=== PATIENT | female | born 1945 | race Caucasian/White ===

== ENCOUNTER 2017-05-11 15:42 | Outpatient (CLI) | payer MEDICARE | END 2017-05-11 15:43 | disposition home or self-care (01) | LOC: BICMAMMO 15:42 | PROVIDERS: ATTEND Family Medicine | DX: Z12.31 Encounter for screening mammogram for malignant neoplasm of breast (principal); Z85.3 Personal history of malignant neoplasm of breast | CPT/HCPCS: 77063 ==

== ENCOUNTER 2017-09-22 03:44 | Emergency (ER) | payer MEDICARE ==
[2017-09-22 04:19] LABS: #Basophils 0.1 thou/uL (0.0-0.2); #Eosinphils 0.2 thou/uL (0.0-0.7); #Lymphocytes 1.9 thou/uL (1.20-3.40); #Monocytes 0.8 thou/uL (0.11-0.59); #Neutrophils 6.3 thou/uL (1.40-6.50); %Basophils 0.7 % (0.0-1.0); %Eosinophils 2.1 % (0.0-10.0); %Lymphocytes 20.7 % (21.0-51.0); %Monocytes 8.3 % (0.0-10.0); %Neutrophils 68.2 % (42.0-75.0); Hemoglobin 10.3 g/dL (12.0-16.0); Mean Corpuscular Hemoglobin 30.4 pg (27.0-31.0); Mean Platelet Volume 8.6 fL (7.4-10.4); Platelet Count 200 thou/uL (130-400); RBC Distribution Width 13.6 % (11.5-14.5); Red Blood Cell (RBC) Count 3.38 mill/uL (4.20-5.40); White Blood Cell (WBC) Count 9.3 thou/uL (4.8-10.8)
[2017-09-22 04:39] LABS: ALT (SGPT) 13 U/L (8-55); AST (SGOT) 15 U/L (5-34); Albumin 3.2 g/dL (3.4-4.8); Alkaline Phosphatase 108 U/L (40-150); Anion Gap 11 mmol/L (10-20); BUN (Urea Nitrogen) 40 mg/dL (9.8-20.1); Bilirubin, Total 0.3 mg/dL (0.2-1.2); Calc. Creatinine Clearance 0 mL/min (70-130); Calcium 8.7 mg/dL (7.8-10.44); Carbon Dioxide 25 mmol/L (23-31); Chloride 111 mmol/L (98-107); Estimated GFR-MDRD 28; Globulin 3.5 g/dL (2.4-3.5); Glucose 149 mg/dL (83-110); Potassium 4.1 mmol/L (3.5-5.1); Protein, Total 6.7 g/dL (6.0-8.3); Sodium 143 mmol/L (136-145)
[2017-09-22 04:42] LABS: Troponin I Less than 0.010 ng/mL (< 0.028)
--- NOTE | 2017-11-25 12:32 | EKG ---
Test Reason : Blood Pressure : / mmHG Vent. Rate : 068 BPM Atrial Rate : 068 BPM P-R Int : 184 ms QRS Dur : 174 ms QT Int : 474 ms P-R-T Axes : 019 -34 -01 degrees QTc Int : 504 ms Normal sinus rhythm Left axis deviation Right bundle branch block Voltage criteria for left ventricular hypertrophy Abnormal ECG Confirmed by OLGA ARROYO ([id number]), makeup editor DONOVAN GALDAMEZ ([id number]) on 11/25/2017 12:31:48 PM Referred By: Confirmed By:OLGA ARROYO
== END 2017-09-22 06:00 | disposition home or self-care (01) ==
LOC: ERS 03:44
DX: E11.649 Type 2 diabetes mellitus with hypoglycemia without coma (principal); I11.0 Hypertensive heart disease with heart failure; I50.9 Heart failure, unspecified; I25.2 Old myocardial infarction; E66.9 Obesity, unspecified; J44.9 Chronic obstructive pulmonary disease, unspecified; Z85.3 Personal history of malignant neoplasm of breast; Z79.4 Long term (current) use of insulin; Z87.891 Personal history of nicotine dependence; Z79.899 Other long term (current) drug therapy; Z79.82 Long term (current) use of aspirin
CPT/HCPCS: 36415; 36416; 80053; 82553; 84484; 85025; 93005

== ENCOUNTER 2018-04-14 13:36 | Outpatient (CLI) | payer MEDICARE ==
--- NOTE | 2018-04-14 14:38 | RAD ---
RIGHT KNEE 4 VIEWS: Date: 04/14/18 HISTORY: Right knee pain. FINDINGS: Mild-moderate degenerative changes are present. These are most prominent in the medial tibiofemoral c ompartment. No fracture, dislocation, or bony destruction is identified. IMPRESSION: Right knee osteoarthritis. POS: [facility]
--- NOTE | 2018-04-14 14:39 | RAD ---
LEFT KNEE FOUR VIEWS: HISTORY: Left knee pain. FINDINGS: There are degenerative changes most prominent in the medial tibiofemoral compartment. No fracture, d islocation, or bony destruction is seen. IMPRESSION: Left knee osteoarthritis. POS: [facility]
== END 2018-04-14 13:37 | disposition home or self-care (01) ==
LOC: BICRAD 13:36
PROVIDERS: ATTEND Anesthesiology Pain Medicine
DX: M25.562 Pain in left knee (principal); M25.561 Pain in right knee; M17.0 Bilateral primary osteoarthritis of knee

== ENCOUNTER 2018-08-26 09:04 | Outpatient (CLI) | payer MEDICARE ==
--- NOTE | 2018-08-26 11:40 | MRI ---
MRI LUMBAR SPINE WITHOUT CONTRAST: 08/26/2018 HISTORY: Bilateral leg pain and back pain for a long time. History of back surgeries. COMPARISON: None. TECHNIQUE: Multiplanar, multisequence MR imaging of the lumbar spine is provided without contrast media. The johnie tient was not administered contrast media secondary to a low glomerular filtration rate of 20. FINDINGS: The sagittal STIR imaging demonstrates no focal area of osseous marrow edema. There is significant d egenerative levoscoliosis of the upper lumbar spine. Artifact associated with post surgical hardware is noted on the right, which appears to include pedicle screws at S1, L5, L3, and L2, not well shelli cterized on this examination. There is diminished T1 signal intensity within the subcutaneous fat, posteriorly, from the T12 level through the L5-S1 level, evidence of extensive prior post surgical change. Assuming five lumbar type vertebral bodies, the conus medullaris terminates at the T12 level. T12-L1: There is disk space narrowing and disk desiccation with minimal disk bulge and bilateral fac et hypertrophy. No significant central canal or neural foraminal stenosis is evident. L1-L2: Disk space narrowing, disk desiccation, anterior osteophyte formation, and minimal disk bulge present. No central canal stenosis. There is bilateral facet hypertrophy, right greater than left. No significant central canal stenosis. Mild neural foraminal stenosis is present on the right. L2-L3: Disk space narrowing, disk desiccation, and mild disk bulge. There is evidence of bilateral laminectomies. There is bilateral facet hypertrophy, right greater than left. There is mild bilater al neural foraminal stenosis. No central canal stenosis. L3-L4: There is mild bilateral facet hypertrophy. There is disk space narrowing and disk desiccatio n. No significant central canal or neural foraminal stenosis. L4-L5: There is bilateral facet hypertrophy and apparent osseous fusion involving the bilateral face t joints. There is disk space narrowing and disk desiccation with no significant central canal or ne ural foraminal stenosis. L5-S1: Disk space narrowing. Bilateral facet hypertrophy and fusion of bilateral facet joints. There is no significant central canal or neural foraminal stenosis. Evaluation of the retroperitoneal structures demonstrates no acute findings. The right kidney is not visualized. Question surgical absence. IMPRESSION: Extensive postoperative and degenerative change noted within the lumbar spine, as above. Contrast wa s not administered secondary to a glomerular filtration rate of 20. POS: [facility]
== END 2018-08-26 09:05 | disposition home or self-care (01) ==
LOC: MRI 09:04
PROVIDERS: ATTEND Anesthesiology Pain Medicine
DX: M47.26 Other spondylosis with radiculopathy, lumbar region (principal); M96.1 Postlaminectomy syndrome, not elsewhere classified; M43.26 Fusion of spine, lumbar region; M62.830 Muscle spasm of back; M17.0 Bilateral primary osteoarthritis of knee; G89.4 Chronic pain syndrome; Z86.39 Personal history of other endocrine, nutritional and metabolic disease; Z79.891 Long term (current) use of opiate analgesic; Z98.890 Other specified postprocedural states
CPT/HCPCS: 72148

== ENCOUNTER 2018-08-27 10:42 | Outpatient (CLI) | payer MEDICARE ==
--- NOTE | 2018-09-15 15:52 | MMO ---
Bilateral MAMMO Bilat Screen [facility]. CLINICAL HISTORY: Patient is 73 years old and is seen for screening. The patient has no family history of breast cancer. The patient has a history of right needle biopsy in December, - benign, left Mastectomy in 2009 - malignant, right Excisional Biopsy in 2008 - benign, left Lumpectomy in 2001 - malignant and left Excisional Biopsy. VIEWS: The views performed were: bilateral craniocaudal with tomosynthesis and bilateral mediolateral oblique with tomosynthesis. FILMS COMPARED: The present examination has been compared to prior imaging studies performed at [facility] on 07/19/2009, 01/19/2013, 06/22/2014, 02/12/2016 and 05/11/2017, at [facility] on 05/18/2007 and 09/22/2008, and at [facility] on 02/27/2011 and 10/10/2011. MAMMOGRAM FINDINGS: There are scattered fibroglandular densities. Finding 1: There are benign appearing densities seen in the right breast. Finding 2: There are benign appearing calcifications seen in the right breast. There are no suspicious masses, suspicious calcifications, or new areas of architectural distortion. IMPRESSION: THERE IS NO MAMMOGRAPHIC EVIDENCE OF MALIGNANCY. A ROUTINE FOLLOW-UP MAMMOGRAM IN 1 YEAR IS RECOMMENDED. THE RESULTS OF THIS EXAM WERE SENT TO THE PATIENT. ACR BI-RADS Category 2 - Benign finding MAMMOGRAPHY NOTE: 1. A negative mammogram report should not delay a biopsy if a dominant of clinically suspicious mass is present. 2. Approximately 10% to 15% of breast cancers are not detected by mammography. 3. Adenosis and dense breasts may obscure an underlying neoplasm.
== END 2018-08-27 10:43 | disposition home or self-care (01) ==
LOC: BICMAMMO 10:42
PROVIDERS: ATTEND Family Medicine
DX: Z12.31 Encounter for screening mammogram for malignant neoplasm of breast (principal)
CPT/HCPCS: 77063; 77067

== ENCOUNTER 2018-12-14 14:48 | Inpatient (IN) | payer MEDICARE ==
[2018-12-14 15:30] LABS: #Basophils 0.1 thou/uL (0.0-0.2); #Eosinphils 0.2 thou/uL (0.0-0.7); #Lymphocytes 2.3 thou/uL (1.20-3.40); #Monocytes 0.7 thou/uL (0.11-0.59); #Neutrophils 4.9 thou/uL (1.40-6.50); %Eosinophils 2.2 % (0.0-10.0); %Neutrophils 60.8 % (42.0-75.0); Hemoglobin 10.5 g/dL (12.0-16.0); Mean Corpuscular HGB CONC 31.9 g/dL (32.0-36.0); Mean Corpuscular Hemoglobin 30.3 pg (27.0-31.0); Mean Corpuscular Volume 94.9 fL (78.0-98.0); Mean Platelet Volume 9.7 fL (7.4-10.4); Platelet Count 212 thou/uL (130-400); Red Blood Cell (RBC) Count 3.47 mill/uL (4.20-5.40); White Blood Cell (WBC) Count 8.1 thou/uL (4.8-10.8)
--- NOTE | 2018-12-14 15:49 | RAD ---
FRONTAL VIEW CHEST: Date: 12/14/18 COMPARISON: 01/07/17. INDICATION: Chest pain. Hypertension. FINDINGS: Enlargement of the cardiac silhouette and pulmonary vasculature with bilateral interstitial prominenc e. There is evidence of prior sternotomy. The chest is similar appearing. IMPRESSION: Decompensated CHF. POS: [facility]
[2018-12-14 16:13] LABS: ALT (SGPT) 11 U/L (8-55); AST (SGOT) 13 U/L (5-34); Albumin 2.7 g/dL (3.4-4.8); Alkaline Phosphatase 138 U/L (40-150); Anion Gap 14 mmol/L (10-20); BUN (Urea Nitrogen) 33 mg/dL (9.8-20.1); Bilirubin, Total 0.3 mg/dL (0.2-1.2); Calc. Creatinine Clearance 0 mL/min (70-130); Calcium 8.4 mg/dL (7.8-10.44); Carbon Dioxide 23 mmol/L (23-31); Chloride 111 mmol/L (98-107); Estimated GFR-MDRD 15; Globulin 3.8 g/dL (2.4-3.5); Glucose 117 mg/dL (83-110); Potassium 4.7 mmol/L (3.5-5.1); Protein, Total 6.5 g/dL (6.0-8.3); Sodium 143 mmol/L (136-145)
[2018-12-14] MEDS ORDERED: Nitroglycerin 2% Ointment 1 INCH/1 GM Packet ONE (17:00)
[2018-12-14] MEDS ORDERED: Furosemide 40 MG/4 ML VIAL ONE (17:00)
[2018-12-14] MEDS ORDERED: Senokot S 8.6-50 MG TAB PO PRN (18:20)
[2018-12-14] MEDS ORDERED: Acetaminophen 325 MG TAB PO PRN (18:20)
[2018-12-14] MEDS ORDERED: Dextrose 5% in Water 1,000 ML IV PRN (18:22)
[2018-12-14] MEDS ORDERED: Dextrose 50% Abboject 50 ML SYRINGE SLOW IVP PRN (18:22)
[2018-12-14 18:42] LABS: Troponin I 0.017 ng/mL (< 0.028)
--- NOTE | 2018-12-14 20:00 | HP ---
CHIEF COMPLAINT: Shortness of breath and chest pain. HISTORY OF PRESENT ILLNESS: The patient is a 73-year-old female with a history of hypertension, CKD stage 4, has a history of CAD status post x3 stents and a history of, I believe, emphysema and breast cancer, who presents to the hospital with complaints of shortness of breath and chest pain. The patient stated that for the past couple of days, she has noticed some chest discomfort, nonradiating. She also was nauseated, but no emesis. The patient states that last night her blood pressure was very high in the 200 systolic. She then took her night medications and we checked and it was 193. The patient denies missing any of her medication doses. The patient also has noticed for the past few days worsening swelling in her lower extremity and also in her abdominal area. The patient states that she has been very compliant with diet and not has not been eating a very high salty foods. The patient stated that she called her cable systems installer today for the chest pain and elevated blood pressure, who recommended her to come into the ER for further evaluation. The patient was put on steroids by her primary care for generalized wheezing about 10 days ago. She states that she does have a cough, but it is a very dry cough. She denies any fevers or chills. The patient also normally walks on her home and has noticed some shortness of breath on minimal exertion. The patient states that she uses oxygen as needed. PAST MEDICAL HISTORY: She has a history of; 1. Hypertension. 2. Diabetes. 3. She has a history of breast cancer. 4. CKD stage 4. 5. CAD. PAST SURGICAL HISTORY: She has had left mastectomy. She also has had a right nephrectomy. She stated that she had a spot on her kidney, however, it was not cancerous. She has had 4 back surgeries. She has also had stents x3. SOCIAL HISTORY: She was a smoker, quit about 20 years ago, was a pretty heavy smoker. She denies any alcohol use or drug use. She is a full code. I did ask her this and her son would be her medical power of employment attorney if something did happen to her. ALLERGIES: SHE IS ALLERGIC TO MORPHINE AND CODEINE. FAMILY HISTORY: No history of heart disease, cancers, or strokes. REVIEW OF SYSTEMS: All negative except the ones mentioned above in HPI. PHYSICAL EXAMINATION: VITAL SIGNS: As of the following; temperature of 98.8, respirations 15%, 98% on 2 L, blood pressure 161/58, pulse of 65. GENERAL: She is awake, alert, and oriented x3. Does not appear in distress. HEENT: Normocephalic and atraumatic. No lymphadenopathy noted. Pupils are equal and reactive to light. She does sound a little congested. CV: S1 and S2 present. No murmurs, rubs, or gallops. LUNGS: Mild crackles to bilateral lower lung bases, otherwise clear. No wheezing heard. ABDOMEN: Soft. Bowel sounds are present x2. Some abdominal edema on palpation. EXTREMITIES: She does have +1 to +2 lower extremity pitting edema. NEUROVASCULAR: No focal deficits noted. SKIN: No cuts, lesions, or bruises noted. LABORATORY RESULTS: As of the following; WBCs of 8.1, hemoglobin of 10.5, hematocrit of 32.9, and platelets of 212. She has no elevated neutrophils. Chemistry; sodium 143, potassium 4.7, BUN of 33, creatinine of 3. Her GFR is 15. Her proBNP was 358. Troponin x2 were negative. She did have a chest x-ray upon my interpretation appears to have some vascular congestion. She did have an echocardiogram which was done in 2017 indicated an EF of 60% to 65%, and at that time she did have some moderate to severe tricuspid regurgitation. ASSESSMENT AND PLAN: The patient is a very pleasant 73-year-old female, who presents to the hospital with complaints of chest pain and shortness of breath. 1. Acute on chronic diastolic heart failure based on her last echocardiogram. I will recheck an echocardiogram. I will also start her on gentle diuresis. I will consult her status controller, who is Dr. Nevarez. I will also consult Cardiology. We will trend her troponins x3. She had no significant changes on her EKG; however, I will go ahead and still consult Cardiology. We will continue her home medications. Her blood pressure of being in the 200s could possibly cause her to have flash pulmonary edema. Currently, I do not think of any infectious etiology. She has no elevated white count and no neutrophils and a chest x-ray does not seem to show any pneumonia. She has no wheezing, however, I will start her on some DuoNebs. 2. History of CKD stage 4. We will continue to monitor. 3. History of hypertension. We will continue her home medications. 4. History of CAD. We will continue her aspirin. 5. DVT prophylaxis. We will put the patient on some SCDs or heparin. Job ID: [id number]
[2018-12-14] MEDS: Aspirin Chewable 81 MG TAB PO SCH (20:57)
[2018-12-14] MEDS: Famotidine 20 MG TAB PO SCH (20:58)
[2018-12-14] MEDS: Montelukast Sodium 10 mg Tablet PO SCH (20:58)
[2018-12-14] MEDS: Heparin 5,000 UNITS/ML VIAL SC SCH (20:58)
[2018-12-14] MEDS ORDERED: Carvedilol 25 MG TAB PO SCH (21:00)
[2018-12-14] MEDS ORDERED: NIFEdipine XL 60 MG TAB PO SCH (21:00)
[2018-12-14 21:32] LABS: Troponin I 0.012 ng/mL (< 0.028)
[2018-12-14] MEDS: Insulin Glargine 25 UNITS in Pre-Filled Syringe SC SCH (23:34)
[2018-12-15] MEDS: hydrALAZINE 20 MG/ML VIAL SLOW IVP PRN (03:28)
[2018-12-15] MEDS: Ondansetron PF 4 MG/2 ML Vial IVP PRN (04:47)
[2018-12-15 05:27] LABS: #Basophils 0.1 thou/uL (0.0-0.2); #Eosinphils 0.2 thou/uL (0.0-0.7); #Lymphocytes 2.3 thou/uL (1.20-3.40); #Monocytes 0.6 thou/uL (0.11-0.59); #Neutrophils 3.8 thou/uL (1.40-6.50); %Basophils 1.4 % (0.0-1.0); %Eosinophils 2.3 % (0.0-10.0); %Lymphocytes 33.3 % (21.0-51.0); %Monocytes 8.7 % (0.0-10.0); %Neutrophils 54.4 % (42.0-75.0); Hemoglobin 9.7 g/dL (12.0-16.0); Mean Corpuscular HGB CONC 31.5 g/dL (32.0-36.0); Mean Corpuscular Hemoglobin 30.4 pg (27.0-31.0); Mean Corpuscular Volume 96.3 fL (78.0-98.0); Mean Platelet Volume 9.6 fL (7.4-10.4); Platelet Count 192 thou/uL (130-400); RBC Distribution Width 12.8 % (11.5-14.5)
[2018-12-15 05:47] LABS: Anion Gap 10 mmol/L (10-20); BUN (Urea Nitrogen) 35 mg/dL (9.8-20.1); Calc. Creatinine Clearance 30 mL/min (70-130); Calcium 8.4 mg/dL (7.8-10.44); Carbon Dioxide 26 mmol/L (23-31); Chloride 109 mmol/L (98-107); Estimated GFR-MDRD 15; Glucose 179 mg/dL (83-110); Potassium 4.1 mmol/L (3.5-5.1); Sodium 141 mmol/L (136-145)
[2018-12-15] MEDS: Carvedilol 25 MG TAB PO SCH ×2 (08:27→21:27)
[2018-12-15] MEDS: Ezetimibe 10 MG TAB PO SCH (08:28)
[2018-12-15] MEDS: Heparin 5,000 UNITS/ML VIAL SC SCH ×3 (08:28→21:29)
[2018-12-15] MEDS ORDERED: Furosemide 40 MG/4 ML VIAL SLOW IVP SCH ×3 (09:00→14:00)
--- NOTE | 2018-12-15 09:57 | PDOC.PN ---
- Subjective Encounter Start Date: 12/15/18 Encounter Start Time: 10:15 Subjective: pt up in chair no complains - Objective Resuscitation Status - Order Detail: 12/14/18 18:20 Resuscitation Status Routine Resuscitation Status: FULL: Full Resuscitation Vital Signs & Weight: Vital Signs (12 hours) Temp Pulse Resp BP Pulse Ox 12/15/18 08:23 97.9 F 71 18 128/68 95 12/15/18 04:35 142/62 H 12/15/18 04:00 98.2 F 62 17 194/84 H 95 12/15/18 03:28 65 12/14/18 22:35 65 135/68 Weight Weight 252 lb I&O: 12/14/18 12/15/18 12/16/18 06:59 06:59 06:59 Intake Total 365 Output Total 700 Balance -335 Result Diagrams: 12/15/18 04:39 12/15/18 04:39 Additional Labs: Accuchecks 12/15/18 05:45 POC Glucose 177 H Phys Exam - Physical Examination Neck: no nodes, no JVD, supple, full ROM Respiratory: no wheezing, no rales, no rhonchi, wheezing present, clear to auscultation bilateral Cardiovascular: RRR, no significant murmur, no rub, gallop, irregular Gastrointestinal: soft, non-tender, no distention, positive bowel sounds Dx/Plan (1) Diastolic CHF, acute on chronic Code(s): I50.33 - ACUTE ON CHRONIC DIASTOLIC (CONGESTIVE) HEART FAILURE Status : Acute Comment: not on ACEI/ARB due to renal insufficiency (2) DEVAUGHN (acute kidney injury) Code(s): N17.9 - ACUTE KIDNEY FAILURE, UNSPECIFIED Status: Acute Comment: Improving (3) DM type 2 (diabetes mellitus, type 2) Status: Chronic (4) Hypertension Code(s): I10 - ESSENTIAL (PRIMARY) HYPERTENSION Status: Chronic - Plan will conitnue lasix for now. echo pending -: will continue his insulin * . Review of Systems - Review of Systems Respiratory: negative: Cough, Dry, Shortness of Breath, Hemoptysis, SOB with Excertion, Pleuritic Pain, Sputum, Wheezing Cardiovascular: negative: chest pain, palpitations, orthopnea, paroxysmal nocturnal dyspnea, edema, light headedness, other Gastrointestinal: negative: Nausea, Vomiting, Abdominal Pain, Diarrhea, Constipation, Melena, Hematochezia, Other - Medications/Allergies Allergies/Adverse Reactions: Allergies Allergy/AdvReac Type Severity Reaction Status Date / Time codeine AdvReac Intermediate Nausea Verified 11/21/16 07:19 morphine AdvReac Intermediate Nausea Verified 11/21/16 07:19 Medications: Current Medications Acetaminophen (Tylenol) 650 mg PO Q4H PRN PRN Reason: Headache/Fever/Mild Pain (1-3) Aspirin (Aspirin Chewable) 81 mg PO [facility] Last Admin: 12/14/18 20:57 Dose: 81 mg Carvedilol (Coreg) 25 mg PO BID [facility] Last Admin: 12/15/18 08:27 Dose: 25 mg Clonidine (Catapres) 0.1 mg PO BID [facility] Dextrose/Water (Dextrose 50%) 25 gm SLOW IVP PRN PRN PRN Reason: Hypoglycemia Ezetimibe (Zetia) 10 mg PO DAILY [facility] Last Admin: 12/15/18 08:28 Dose: 10 mg Famotidine (Pepcid) 20 mg PO QPM [facility] Last Admin: 12/14/18 20:58 Dose: 20 mg Furosemide (Lasix) 80 mg SLOW IVP 0600,1400 [facility] Glucagon (Glucagon) 1 mg IM PRN PRN PRN Reason: Hypoglycemia Heparin Sodium (Porcine) (Heparin) 5,000 units SC TID [facility] Last Admin: 12/15/18 08:28 Dose: 5,000 units Hydralazine HCl (Apresoline) 5 mg SLOW IVP Q6H PRN PRN Reason: SBP >= 180 Last Admin: 12/15/18 03:28 Dose: 5 mg Dextrose/Water (D5w) 1,000 mls @ 0 mls/hr IV .Q0M PRN PRN Reason: Hypoglycemia Insulin Glargine 25 units/ (Miscellaneous Medication) 0.25 mls @ 0 mls/hr SC [facility] Last Admin: 12/14/18 23:34 Dose: Not Given Insulin Human Lispro (Humalog) 0 units SC .MILD SLIDING SCALE PRN PRN Reason: Mild Correctional Scale Isosorbide Mononitrate (Imdur) 60 mg PO [facility] Last Admin: 12/14/18 20:57 Dose: 60 mg Montelukast Sodium (Singulair) 10 mg PO [facility] Last Admin: 12/14/18 20:58 Dose: 10 mg Nifedipine (Procardia Xl) 60 mg PO DAILY [facility] Ondansetron HCl (Zofran) 4 mg IVP Q6H PRN PRN Reason: Nausea/Vomiting Last Admin: 12/15/18 04:47 Dose: 4 mg Senna/Docusate Sodium (Senokot S) 2 tab PO BID PRN PRN Reason: Constipation Sodium Chloride (Flush - Normal Saline) 10 ml IVF Q12HR [facility] Last Admin: 12/15/18 08:28 Dose: 10 ml Sodium Chloride (Flush - Normal Saline) 10 ml IVF PRN PRN PRN Reason: Saline Flush
[2018-12-15] MEDS: cloNIDine 0.1 MG TAB PO SCH ×2 (10:40→21:27)
[2018-12-15] MEDS: NIFEdipine XL 60 MG TAB PO SCH (10:40)
--- NOTE | 2018-12-15 10:46 | CON ---
DATE OF CONSULTATION: HISTORY OF PRESENT ILLNESS: Ms. Lehman is a 73-year-old white female with known history of emphysema, chronic renal failure from diabetic nephropathy, admitted for congestive heart failure. Of interest, this patient was seen at the clinic back on December 02, 2018. She had leg edema at that time. We felt that the leg edema was being precipitated by her nifedipine and Lyrica. She was maintained on spironolactone. However, in the last few days, she became more short of breath. Chest x-ray showed CHF. We are now being consulted for her acute kidney injury on top of her chronic renal failure. REVIEW OF SYSTEMS: Occasional leg edema. Positive for shortness of breath. No chest pain. No syncopal episode. No nausea. No vomiting. No diarrhea. No gross hematuria. No dysuria. No hematochezia. No melena. No hematemesis. No headache. No diplopia. No sore throat. No earaches. Appetite and energy level are fair. No abdominal pain. CURRENT HOSPITAL MEDICATIONS: 1. Tylenol 650 mg q.4 p.r.n. 2. Aspirin 81 mg daily. 3. Carvedilol 25 mg p.o. b.i.d. 4. Zetia 10 mg at bedtime. 5. Famotidine 20 mg q.p.m. 6. Heparin 5000 units subcu t.i.d. 7. Furosemide 40 mg IV daily. 8. Hydralazine 5 mg IV q.6 p.r.n. 9. Imdur 60 mg p.o. at bedtime. 10. Insulin glargine 25 units subcu daily. 11. Nifedipine 60 mg p.o. at bedtime. PAST MEDICAL HISTORY: Includes the following; 1. Chronic renal failure from diabetic nephropathy. 2. Type 2 diabetes mellitus. 3. Hypertension. 4. History of CHF. 5. Left breast cancer in remission. 6. History of morbid obesity. 7. Benign right adrenal tumor. 8. Hyperlipidemia. 9. DJD. 10. Uterine cancer in remission. 11. Cervical cancer in remission. 12. Chronic sinusitis. 13. Coronary artery disease. 14. History of emphysema. PAST SURGICAL HISTORY: Includes status post right nephrectomy, status post back surgery, status post cardiac cath, status post CABG, status post left maxillary lymph node biopsy, status post left mastectomy, status post hysterectomy, status post colonoscopy, and status post repair of ureters secondary to an iatrogenic laceration. SOCIAL HISTORY: The patient lives in [place] with her son. Smoked for 40 years, 1-1/2 pack a day. Education, 11th grade. Currently not smoking. 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 Status post blood transfusion. No IV drug abuse. ALLERGIES: MORPHINE, CODEINE. TRAUMA: None. IMMUNIZATIONS: Up-to-date. HOSPITALIZATIONS: Please see past medical history. FAMILY HISTORY: No family history of ESRD. PHYSICAL EXAMINATION: VITAL SIGNS: Blood pressure is noted at 128/68, heart rate 71, respiratory rate 18, temperature 97.9, and pulse ox 95%. GENERAL: Awake, alert, sitting comfortable, not in overt distress. SKIN: Adequate turgor. HEENT: She has slightly pale conjunctivae. Anicteric sclerae. NECK: No neck mass. No carotid bruits. No JVD. CHEST: No deformities. LUNGS: Decreased breath sounds. HEART: Normal sinus rhythm. No murmur. No gallops. No rubs. ABDOMEN: Globular, soft, and nontender. No masses. EXTREMITIES: Positive for edema. NEUROLOGICAL: Awake and oriented to 3 spheres. Moving all extremities. No tremors. No asterixis. No ataxia. LABORATORY DATA: Laboratories of December 15, 2018; sodium 141, potassium 4.1, chloride 109, carbon dioxide 26, BUN 35, creatinine 3.02, glucose 179, and calcium 8.4. Troponin I 0.012. On December 14, 2018; BUN 33, creatinine 3.0. On November 24, 2018; BUN 28, creatinine 2.8. On August 19, 2018; BUN 30, creatinine 2.34. IMAGING DATA: Chest x-ray shows CHF. ASSESSMENT AND PLAN: 1. Congestive heart failure - the patient is clinically symptomatic. My bias is to further increase her Lasix to 40 mg IV q.12 from once a day. 2. Chronic renal failure secondary to diabetic nephropathy. Creatinine is higher than her baseline. This may be related to the ongoing congestive heart failure as well as current diuretic regimen. My bias is to optimize the control of her congestive heart failure. For that reason, Lasix has been increased. We will monitor kidney function carefully. We will recheck her basic metabolic profile tomorrow. There is no indication for any dialytic intervention at the present time. 3. Hypertension. Due to the leg edema in the past, I have discontinued nifedipine. I have restarted her on clonidine 0.1 mg tablet b.i.d. Thank you for the consult. We will continue to follow. Job ID: [id number]
--- NOTE | 2018-12-15 11:06 | CON ---
DATE OF CONSULTATION: HISTORY OF PRESENT ILLNESS: The patient is a 73-year-old woman, who presents with increasing dyspnea and chest discomfort. The patient has a long history of coronary artery disease. She suffered from non-Q-wave myocardial infarction in 2006. She subsequently underwent cardiac catheterization, found to have severe three-vessel coronary artery disease. She had coronary artery bypass graft surgery x3. She had a CELESTE placed to the LAD, saphenous vein graft to the first diagonal and to an obtuse marginal branch. The patient following the procedure had brief episode of postoperative atrial fibrillation. The patient has suffered from congestive heart failure. She has been admitted previously with dyspnea. She also has chronic renal insufficiency. The patient was in her usual state of health when her diuretic was discontinued due to worsening renal insufficiency. She states she became progressively short of breath. Her blood pressure elevated and she presented to the emergency room with dyspnea and chest discomfort. PAST MEDICAL HISTORY: 1. Coronary artery disease. 2. Diabetes mellitus. 3. Hypertension. 4. Hyperlipidemia. 5. Morbid obesity. 6. History of renal cell carcinoma. 7. Chronic obstructive pulmonary disease. PAST SURGICAL HISTORY: Coronary artery bypass graft surgery , nephrectomy and surgery for breast carcinoma. SOCIAL HISTORY: Former smoker. FAMILY HISTORY: Strong family history of coronary artery disease. MEDICATIONS: See nursing list. REVIEW OF SYSTEMS: Ten-point system otherwise unremarkable. No history of easy bruising or bleeding. PHYSICAL EXAMINATION: GENERAL: This is an obese woman, in mild distress. VITAL SIGNS: Blood pressure 128/68. NECK: Showed no jugular venous distention. LUNGS: Lungs have crackles throughout both lung lee. HEART: Regular rate and rhythm. Normal S1 and S2. 1/6 systolic murmur. ABDOMEN: Distended. EXTREMITIES: Showed mild bilateral edema. VASCULAR: Radial pulses 2+. LABORATORY DATA: White blood cell count 7.0, hemoglobin 9.7, hematocrit 30.8, and platelets are 192. Sodium was 141, potassium 4.1, chloride 109, bicarbonate 26 , BUN 35, and creatinine was 3.0. Troponin 0.012. BNP was 358. Her EKG revealed her to have normal sinus rhythm with frequent right bundle-branch block, frequent premature atrial contractions. IMPRESSION: 1. Congestive heart failure. 2. Coronary artery disease. 3. History of coronary artery bypass surgery. 4. Hypertension. 5. Diabetes mellitus. 6. Morbid obesity. 7. Chronic renal insufficiency. PLAN: This patient presents with worsening edema. Her chest x-ray shows evidence of pulmonary congestion. The patient is being treated with IV Lasix. From a cardiac standpoint, we will increase the dose of her nifedipine to try to lower her blood pressure. We will follow this patient with you throughout her hospitalization. Job ID: [id number] MTDD
[2018-12-15] MEDS: Furosemide 100 MG/10 ML VIAL SLOW IVP SCH (14:59)
[2018-12-15] MEDS: HumaLOG 300 UNITS/3 ML VIAL SC PRN (18:25)
[2018-12-15] MEDS: Famotidine 20 MG TAB PO SCH (21:26)
[2018-12-15] MEDS: Aspirin Chewable 81 MG TAB PO SCH (21:26)
[2018-12-15] MEDS: Montelukast Sodium 10 mg Tablet PO SCH (21:28)
[2018-12-15] MEDS: Insulin Glargine 25 UNITS in Pre-Filled Syringe SC SCH (21:35)
[2018-12-16] MEDS: Furosemide 100 MG/10 ML VIAL SLOW IVP SCH (05:25)
[2018-12-16 05:37] LABS: #Eosinphils 0.3 thou/uL (0.0-0.7); #Monocytes 0.6 thou/uL (0.11-0.59); #Neutrophils 2.8 thou/uL (1.40-6.50); %Basophils 0.8 % (0.0-1.0); %Eosinophils 5.1 % (0.0-10.0); %Lymphocytes 34.4 % (21.0-51.0); %Monocytes 9.7 % (0.0-10.0); %Neutrophils 50.1 % (42.0-75.0); Hemoglobin 9.1 g/dL (12.0-16.0); Mean Corpuscular HGB CONC 31.3 g/dL (32.0-36.0); Mean Corpuscular Hemoglobin 30.5 pg (27.0-31.0); Mean Corpuscular Volume 97.4 fL (78.0-98.0); Mean Platelet Volume 9.9 fL (7.4-10.4); Platelet Count 187 thou/uL (130-400); RBC Distribution Width 12.7 % (11.5-14.5); Red Blood Cell (RBC) Count 2.98 mill/uL (4.20-5.40); White Blood Cell (WBC) Count 5.7 thou/uL (4.8-10.8)
[2018-12-16 05:59] LABS: Anion Gap 12 mmol/L (10-20); BUN (Urea Nitrogen) 41 mg/dL (9.8-20.1); Calc. Creatinine Clearance 24 mL/min (70-130); Carbon Dioxide 23 mmol/L (23-31); Chloride 108 mmol/L (98-107); Estimated GFR-MDRD 12; Glucose 163 mg/dL (83-110); Potassium 4.8 mmol/L (3.5-5.1); Sodium 138 mmol/L (136-145)
--- NOTE | 2018-12-16 09:03 | PRG ---
DATE OF SERVICE: 12/16/2018 SUBJECTIVE: Ms. Lehman is a 73-year-old white female, seen by Renal Service for acute kidney injury on top of her chronic renal failure. She was admitted for CHF. She has been receiving diuretics. Yesterday, Lasix was increased to 80 mg IV q.12; however, creatinine has been noted to have worsened. In addition, she has now dropped her BP, and for that reason, her nifedipine will currently be placed on hold. In addition, clonidine has also been placed on hold temporarily. Her breathing has much improved. OBJECTIVE: VITAL SIGNS: Blood pressure 107/53, heart rate 59, respiratory rate 18, temperature 98.8, and pulse ox 92%. GENERAL: The patient is awake, sitting comfortable, not in distress. SKIN: Adequate turgor. HEENT: Slightly pale conjunctivae. Anicteric sclerae. NECK: No neck mass. No carotid bruits. No JVD. CHEST: No deformities. LUNGS: Decreased breath sounds. HEART: Normal sinus rhythm. No murmur. No gallops. No rubs. ABDOMEN: Globular, soft, nontender. EXTREMITIES: Positive for edema. MEDICATIONS: Medications of December 16, 2018, reviewed. LABORATORY DATA: Laboratories of December 16, 2018; white count 5.7, hemoglobin 9.1. Sodium 138, potassium 4.8, chloride 108, carbon dioxide 23, BUN 41, creatinine 3.81, glucose 163, calcium 8. ASSESSMENT AND PLAN: 1. Acute kidney injury/chronic renal failure, superimposed hemodynamically-mediated renal dysfunction secondary to the diuretic use as well as from the congestive heart failure. Diuretics will be placed on hold temporarily. There is no indication for any emergent hemodialysis with this patient. I do anticipate some stabilization with the renal function with adjustment and holding of the diuretics. 2. Hypertension. Currently BP medications on hold. 3. Borderline anemia. We will continue to observe. 4. We will recheck basic metabolic profile and CBC in a.m. Job ID: [id number]
[2018-12-16] MEDS: NIFEdipine XL 60 MG TAB PO SCH (09:08)
[2018-12-16] MEDS: Ezetimibe 10 MG TAB PO SCH (09:08)
[2018-12-16] MEDS: Heparin 5,000 UNITS/ML VIAL SC SCH ×2 (09:08→14:13)
[2018-12-16] MEDS: Carvedilol 25 MG TAB PO SCH (09:18)
[2018-12-16] MEDS ORDERED: Metoclopramide HCl 10 MG/2 ML VIAL IVP SCH (11:30)
--- NOTE | 2018-12-16 13:51 | PDOC.PN ---
- Subjective Encounter Start Date: 12/16/18 Encounter Start Time: 11:00 Subjective: pt up in bed got very nauseated and dizzy - Objective Resuscitation Status - Order Detail: 12/14/18 18:20 Resuscitation Status Routine Resuscitation Status: FULL: Full Resuscitation Vital Signs & Weight: Vital Signs (12 hours) Temp Pulse Resp BP BP Pulse Ox 12/16/18 09:08 64 123/58 L 12/16/18 04:11 98.8 F 59 L 18 107/53 L 92 L Weight Admit Weight 252 lb Weight 251 lb 12.8 oz I&O: 12/15/18 12/16/18 12/17/18 06:59 06:59 06:59 Intake Total 365 300 Output Total 700 400 Balance -335 -100 Result Diagrams: 12/16/18 05:13 12/16/18 05:13 Additional Labs: Accuchecks 12/16/18 12/16/18 12/15/18 10:39 05:45 20:36 POC Glucose 248 H 181 H 180 H 12/15/18 16:39 POC Glucose 211 H Phys Exam - Physical Examination Neck: no nodes, no JVD, supple, full ROM Respiratory: no wheezing, no rales, no rhonchi, wheezing present, clear to auscultation bilateral Cardiovascular: RRR, no significant murmur, no rub, gallop, irregular Gastrointestinal: soft, non-tender, no distention, positive bowel sounds Dx/Plan (1) Diastolic CHF, acute on chronic Code(s): I50.33 - ACUTE ON CHRONIC DIASTOLIC (CONGESTIVE) HEART FAILURE Status : Acute Comment: not on ACEI/ARB due to renal insufficiency (2) DEVAUGHN (acute kidney injury) Code(s): N17.9 - ACUTE KIDNEY FAILURE, UNSPECIFIED Status: Acute Comment: Improving (3) DM type 2 (diabetes mellitus, type 2) Status: Chronic (4) Hypertension Code(s): I10 - ESSENTIAL (PRIMARY) HYPERTENSION Status: Chronic - Plan worsening creatinine, will hold lasix, bp low will hold bb and bp meds -: will continue to monitor. echo indicated good ef and moderate -: to severe TR. * . Review of Systems - Review of Systems Respiratory: negative: Cough, Dry, Shortness of Breath, Hemoptysis, SOB with Excertion, Pleuritic Pain, Sputum, Wheezing Gastrointestinal: Nausea Musculoskeletal: negative: Neck Pain, Shoulder Pain, Arm Pain, Back Pain, Hand Pain, Leg Pain, Foot Pain, Other - Medications/Allergies Allergies/Adverse Reactions: Allergies Allergy/AdvReac Type Severity Reaction Status Date / Time codeine AdvReac Intermediate Nausea Verified 11/21/16 07:19 morphine AdvReac Intermediate Nausea Verified 11/21/16 07:19 Medications: Current Medications Acetaminophen (Tylenol) 650 mg PO Q4H PRN PRN Reason: Headache/Fever/Mild Pain (1-3) Aspirin (Aspirin Chewable) 81 mg PO [facility] Last Admin: 12/15/18 21:26 Dose: 81 mg Carvedilol (Coreg) 25 mg PO BID [facility] Last Admin: 12/16/18 09:18 Dose: Not Given Dextrose/Water (Dextrose 50%) 25 gm SLOW IVP PRN PRN PRN Reason: Hypoglycemia Ezetimibe (Zetia) 10 mg PO DAILY [facility] Last Admin: 12/16/18 09:08 Dose: 10 mg Famotidine (Pepcid) 20 mg PO QPM [facility] Last Admin: 12/15/18 21:26 Dose: 20 mg Glucagon (Glucagon) 1 mg IM PRN PRN PRN Reason: Hypoglycemia Heparin Sodium (Porcine) (Heparin) 5,000 units SC TID [facility] Last Admin: 12/16/18 09:08 Dose: 5,000 units Hydralazine HCl (Apresoline) 5 mg SLOW IVP Q6H PRN PRN Reason: SBP >= 180 Last Admin: 12/15/18 03:28 Dose: 5 mg Dextrose/Water (D5w) 1,000 mls @ 0 mls/hr IV .Q0M PRN PRN Reason: Hypoglycemia Insulin Glargine 25 units/ (Miscellaneous Medication) 0.25 mls @ 0 mls/hr SC [facility] Last Admin: 12/15/18 21:35 Dose: Not Given Insulin Human Lispro (Humalog) 0 units SC .MILD SLIDING SCALE PRN PRN Reason: Mild Correctional Scale Last Admin: 12/15/18 18:25 Dose: 3 units Isosorbide Mononitrate (Imdur) 60 mg PO [facility] Last Admin: 12/15/18 21:27 Dose: 60 mg Montelukast Sodium (Singulair) 10 mg PO [facility] Last Admin: 12/15/18 21:28 Dose: 10 mg Nifedipine (Procardia Xl) 60 mg PO DAILY [facility] Last Admin: 12/16/18 09:08 Dose: 60 mg Ondansetron HCl (Zofran) 4 mg IVP Q6H PRN PRN Reason: Nausea/Vomiting Last Admin: 12/15/18 04:47 Dose: 4 mg Senna/Docusate Sodium (Senokot S) 2 tab PO BID PRN PRN Reason: Constipation Sodium Chloride (Flush - Normal Saline) 10 ml IVF Q12HR [facility] Last Admin: 12/16/18 09:09 Dose: 10 ml Sodium Chloride (Flush - Normal Saline) 10 ml IVF PRN PRN PRN Reason: Saline Flush
[2018-12-16] MEDS: Ondansetron PF 4 MG/2 ML Vial IVP PRN ×2 (14:13→22:03)
--- NOTE | 2018-12-16 16:17 | EKG ---
Test Reason : Blood Pressure : / mmHG Vent. Rate : 058 BPM Atrial Rate : 050 BPM P-R Int : 000 ms QRS Dur : 156 ms QT Int : 470 ms P-R-T Axes : 000 -39 000 degrees QTc Int : 461 ms Atrial fibrillation with slow ventricular response Left axis deviation Right bundle branch block Minimal voltage criteria for LVH, may be normal variant Abnormal ECG Confirmed by JEANNIE MORAN ([id number]) on 12/16/2018 4:17:41 PM Referred By: AMISHA Confirmed By:JEANNIE MORAN
[2018-12-16] MEDS: HumaLOG 300 UNITS/3 ML VIAL SC PRN (17:50)
[2018-12-16] MEDS: Aspirin Chewable 81 MG TAB PO SCH (20:46)
[2018-12-16] MEDS: Montelukast Sodium 10 mg Tablet PO SCH (20:46)
[2018-12-16] MEDS: Famotidine 20 MG TAB PO SCH (20:46)
[2018-12-16] MEDS: Apixaban 5 MG TAB PO SCH (20:46)
[2018-12-16] MEDS: Insulin Glargine 25 UNITS in Pre-Filled Syringe SC SCH (22:02)
[2018-12-17 02:56] LABS: Bacteria/HPF 4+ HPF (None Seen); Bilirubin Negative (Negative); Blood, Urine Trace (Negative); Clarity Turbid (Clear); Glucose, Urine (Dipstick) 300 mg/dL (Negative); Leukocyte 250 Leu/uL (Negative); Mucous/LPF Rare LPF (<2+); Nitrite Negative (Negative); Protein, Urine (Dipstick) 300 mg/dL (Neg-Trace); RBC/HPF 0-3 HPF (0-3); Squamous Epithelial 0-3 HPF (0-3); Urobilinogen Normal mg/dL (Less than 2); WBC/HPF Greater than 50 HPF (0-3)
[2018-12-17 06:27] LABS: #Basophils 0.1 thou/uL (0.0-0.2); #Eosinphils 0.1 thou/uL (0.0-0.7); #Lymphocytes 2.1 thou/uL (1.20-3.40); #Monocytes 0.6 thou/uL (0.11-0.59); #Neutrophils 3.6 thou/uL (1.40-6.50); %Eosinophils 2.2 % (0.0-10.0); %Lymphocytes 32.5 % (21.0-51.0); %Monocytes 8.9 % (0.0-10.0); %Neutrophils 55.5 % (42.0-75.0); Hemoglobin 9.4 g/dL (12.0-16.0); Mean Corpuscular HGB CONC 31.4 g/dL (32.0-36.0); Mean Corpuscular Hemoglobin 30.1 pg (27.0-31.0); Mean Corpuscular Volume 96.1 fL (78.0-98.0); Mean Platelet Volume 9.4 fL (7.4-10.4); Platelet Count 194 thou/uL (130-400); RBC Distribution Width 12.6 % (11.5-14.5); Red Blood Cell (RBC) Count 3.12 mill/uL (4.20-5.40); White Blood Cell (WBC) Count 6.5 thou/uL (4.8-10.8)
[2018-12-17 06:46] LABS: Anion Gap 11 mmol/L (10-20); BUN (Urea Nitrogen) 47 mg/dL (9.8-20.1); Calc. Creatinine Clearance 22 mL/min (70-130); Calcium 8.2 mg/dL (7.8-10.44); Carbon Dioxide 26 mmol/L (23-31); Chloride 106 mmol/L (98-107); Estimated GFR-MDRD 11; Glucose 147 mg/dL (83-110); Potassium 4.3 mmol/L (3.5-5.1); Sodium 139 mmol/L (136-145)
[2018-12-17] MEDS ORDERED: Albumin 25% 25 GM/100 ML BOT IVPB ONE (08:54)
[2018-12-17] MEDS ORDERED: Sodium Chloride 0.9% 500 ML IV SCH (09:00)
[2018-12-17] MEDS: Ezetimibe 10 MG TAB PO SCH (09:35)
[2018-12-17] MEDS: Apixaban 5 MG TAB PO SCH ×2 (09:35→20:45)
[2018-12-17] MEDS: NIFEdipine XL 60 MG TAB PO SCH (09:35)
[2018-12-17] MEDS: Albumin 25% 25 GM/100 ML BOT IVPB SCH ×3 (09:36→22:15)
--- NOTE | 2018-12-17 09:47 | PRG ---
DATE OF SERVICE: 12/17/2018 PRIMARY DECORATOR CONSULTANT: Tony Sauer MD SUBJECTIVE: Ms. Lehman sitting up in a chair. She is breathing okay. No chest pain or pressure. OBJECTIVE: VITAL SIGNS: Her blood pressure 142/65 and pulse 62, it is regular. LUNGS: Clear anteriorly and laterally. CARDIAC: Normal S1. Normal S2. ABDOMEN: Soft and nontender. EXTREMITIES: Only mild edema. PERTINENT LABORATORY DATA: Creatinine is up to 4.09. Estimated GFR is 11. The echocardiogram showed normal left ventricular function. ASSESSMENT: 1. Diastolic congestive heart failure appears to be somewhat volume depleted. 2. Hypertension, controlled. 3. Acute renal failure worsened with a GFR is 11. PLAN: 1. Dr. Nevarez is going to order intravenous fluid. 2. Nifedipine is on hold. 3. Repeat basic metabolic tomorrow. 4. Dr. Vasquez to see tomorrow. 5. The patient is currently in sinus rhythm, still on full dose apixaban. She is 73 years of age, weighs 250 pounds. Creatinine is over 4. Job ID: [id number]
--- NOTE | 2018-12-17 09:49 | PRG ---
DATE OF SERVICE: 12/17/2018 SUBJECTIVE: Ms. Lehman is a 73-year-old white female with chronic renal failure, who was initially admitted for congestive heart failure. She was started on diuretics. Due to the worsening renal dysfunction, her diuretics were placed on hold yesterday. She was also noted to be on the hypotensive side. For that reason, her nicardipine was discontinued. This morning, the patient is feeling tired. However, she denies any chest pain or shortness of breath. OBJECTIVE: VITAL SIGNS: Blood pressure is noted at 142/65, heart rate 62, respiratory rate 18, temperature 98, and pulse ox 94%. GENERAL: The patient is sleepy, but arousable and comfortable. SKIN: Adequate turgor. HEENT: Pinkish conjunctivae. Anicteric sclerae. NECK: No neck mass. No carotid bruits. No JVD. CHEST: No deformities. LUNGS: Clear breath sounds. No wheezing. No crackles. HEART: Normal sinus rhythm. She has a grade 2/6 systolic murmur. No gallops. No rubs. ABDOMEN: Globular, soft, and nontender. No masses. EXTREMITIES: No edema. MEDICATIONS: Medications of December 17, 2018, were reviewed. LABORATORY DATA: Laboratories of December 17, 2018; white count 6.5 and hemoglobin 9.4. Sodium 139, potassium 4.3, chloride 106, carbon dioxide 26, BUN 47, creatinine 4.09, GFR 11 mL/minute, and calcium 8.2. On December 16, 2018, creatinine was 3.81. On December 15, 2018, creatinine was 3.02. ASSESSMENT AND PLAN: 1. Acute kidney injury on top of chronic renal failure. I suspect a component of prerenal azotemia. Diuretics have been hold. In addition, we have allowed the blood pressure to run higher. The patient is not clinically uremic. Her potassium is acceptable. My plan is to at least attempt to give her albumin infusion 25 g IV q.6 to see if we could get any improvement with the renal function. 2. Hypotension, much improved. BP medications have been adjusted. 3. Borderline anemia. We will continue to observe. 4. Congestive heart failure, clinically much improved. Job ID: [id number]
[2018-12-17] MEDS: Ondansetron PF 4 MG/2 ML Vial IVP PRN (12:09)
--- NOTE | 2018-12-17 16:02 | PDOC.PN ---
- Subjective Encounter Start Date: 12/17/18 Encounter Start Time: 16:00 Pt seen for followup re: UTI. Pt says she feels better. - Objective Resuscitation Status - Order Detail: 12/14/18 18:20 Resuscitation Status Routine Resuscitation Status: FULL: Full Resuscitation Vital Signs & Weight: Vital Signs (12 hours) Temp Pulse Resp BP BP Pulse Ox 12/17/18 12:05 97.9 F 74 16 144/64 H 98 12/17/18 09:35 94 L 12/17/18 07:41 98.0 F 62 18 142/65 H 94 L 12/17/18 04:00 97.7 F 77 20 147/67 H 95 Weight Admit Weight 252 lb Weight 251 lb I&O: 12/16/18 12/17/18 12/18/18 06:59 06:59 06:59 Intake Total 300 460 Output Total 400 425 Balance -100 35 Result Diagrams: 12/17/18 06:11 12/17/18 06:11 Additional Labs: Accuchecks 12/17/18 12/17/18 12/17/18 11:00 09:43 05:20 POC Glucose 262 H 148 H 160 H 12/16/18 12/16/18 20:25 16:44 POC Glucose 248 H 252 H Phys Exam - Physical Examination Morbid obesity HEENT: moist MMs Neck: supple Respiratory: clear to auscultation bilateral Cardiovascular: RRR Gastrointestinal: soft Musculoskeletal: edema present Neurological: moves all 4 limbs Psychiatric: normal affect Dx/Plan (1) UTI (urinary tract infection) Status: Acute Comment: start ceftriaxone, await culture (2) Acute worsening of stage 4 chronic kidney disease Code(s): N18.4 - CHRONIC KIDNEY DISEASE, STAGE 4 (SEVERE) Status: Acute Comment: pt to receive albumin (3) Diastolic CHF, acute on chronic Code(s): I50.33 - ACUTE ON CHRONIC DIASTOLIC (CONGESTIVE) HEART FAILURE Status : Acute Comment: Lasix discontinued (4) DM type 2 (diabetes mellitus, type 2) Status: Chronic Comment: continue accuchecks, insulin sliding scale (5) Dyslipidemia Code(s): E78.5 - HYPERLIPIDEMIA, UNSPECIFIED Status: Chronic Comment: continue Lipitor (6) GERD (gastroesophageal reflux disease) Code(s): K21.9 - GASTRO-ESOPHAGEAL REFLUX DISEASE WITHOUT ESOPHAGITIS Status: Chronic Comment: stable (7) Hypertension Code(s): I10 - ESSENTIAL (PRIMARY) HYPERTENSION Status: Chronic Comment: reasonable control - Plan * . Review of Systems - Review of Systems Respiratory: SOB with Excertion. negative: Cough, Shortness of Breath, Pleuritic Pain, Wheezing Cardiovascular: negative: chest pain, palpitations, orthopnea, paroxysmal nocturnal dyspnea, edema, light headedness - Medications/Allergies Allergies/Adverse Reactions: Allergies Allergy/AdvReac Type Severity Reaction Status Date / Time codeine AdvReac Intermediate Nausea Verified 11/21/16 07:19 morphine AdvReac Intermediate Nausea Verified 11/21/16 07:19 Medications: Current Medications Acetaminophen (Tylenol) 650 mg PO Q4H PRN PRN Reason: Headache/Fever/Mild Pain (1-3) Albumin Human (Albumin 25%) 25 gm IVPB Q6H [facility] Stop: 12/19/18 04:01 Last Admin: 12/17/18 09:36 Dose: 25 gm Apixaban (Eliquis) 5 mg PO BID [facility] Last Admin: 12/17/18 09:35 Dose: 5 mg Aspirin (Aspirin Chewable) 81 mg PO [facility] Last Admin: 12/16/18 20:46 Dose: 81 mg Carvedilol (Coreg) 12.5 mg PO BID[facility] Dextrose/Water (Dextrose 50%) 25 gm SLOW IVP PRN PRN PRN Reason: Hypoglycemia Ezetimibe (Zetia) 10 mg PO DAILY [facility] Last Admin: 12/17/18 09:35 Dose: 10 mg Famotidine (Pepcid) 20 mg PO QPM [facility] Last Admin: 12/16/18 20:46 Dose: 20 mg Glucagon (Glucagon) 1 mg IM PRN PRN PRN Reason: Hypoglycemia Hydralazine HCl (Apresoline) 5 mg SLOW IVP Q6H PRN PRN Reason: SBP >= 180 Last Admin: 12/15/18 03:28 Dose: 5 mg Dextrose/Water (D5w) 1,000 mls @ 0 mls/hr IV .Q0M PRN PRN Reason: Hypoglycemia Insulin Glargine 25 units/ (Miscellaneous Medication) 0.25 mls @ 0 mls/hr SC [facility] Last Admin: 12/16/18 22:02 Dose: Not Given Ceftriaxone Sodium 1 gm/ (Sodium Chloride) 100 mls @ 200 mls/hr IVPB Q24HR [facility] Insulin Human Lispro (Humalog) 0 units SC .MILD SLIDING SCALE PRN PRN Reason: Mild Correctional Scale Last Admin: 12/16/18 17:50 Dose: 4 units Isosorbide Mononitrate (Imdur) 60 mg PO HS [facility] Montelukast Sodium (Singulair) 10 mg PO HS [facility] Last Admin: 12/16/18 20:46 Dose: 10 mg Nifedipine (Procardia Xl) 60 mg PO DAILY [facility] Last Admin: 12/17/18 09:35 Dose: 60 mg Ondansetron HCl (Zofran) 4 mg IVP Q6H PRN PRN Reason: Nausea/Vomiting Last Admin: 12/17/18 12:09 Dose: 4 mg Senna/Docusate Sodium (Senokot S) 2 tab PO BID PRN PRN Reason: Constipation Sodium Chloride (Flush - Normal Saline) 10 ml IVF Q12HR [facility] Last Admin: 12/17/18 09:36 Dose: 10 ml Sodium Chloride (Flush - Normal Saline) 10 ml IVF PRN PRN PRN Reason: Saline Flush
[2018-12-17] MEDS: cefTRIAXone\\ROCEPHIN 1 GM in Sodium Chloride 0.9% 100 ML IVPB SCH (16:19)
[2018-12-17] MEDS: HumaLOG 300 UNITS/3 ML VIAL SC PRN (18:57)
[2018-12-17] MEDS: Aspirin Chewable 81 MG TAB PO SCH (20:45)
[2018-12-17] MEDS: Famotidine 20 MG TAB PO SCH (20:45)
[2018-12-17] MEDS: Montelukast Sodium 10 mg Tablet PO SCH (20:45)
[2018-12-17] MEDS: Insulin Glargine 25 UNITS in Pre-Filled Syringe SC SCH (20:46)
[2018-12-18] MEDS: Albumin 25% 25 GM/100 ML BOT IVPB SCH ×2 (04:29→09:41)
[2018-12-18 06:33] LABS: #Basophils 0.1 thou/uL (0.0-0.2); #Eosinphils 0.1 thou/uL (0.0-0.7); #Lymphocytes 2.1 thou/uL (1.20-3.40); #Monocytes 0.7 thou/uL (0.11-0.59); #Neutrophils 3.5 thou/uL (1.40-6.50); %Basophils 0.8 % (0.0-1.0); %Eosinophils 1.8 % (0.0-10.0); %Lymphocytes 32.3 % (21.0-51.0); %Monocytes 10.6 % (0.0-10.0); %Neutrophils 54.5 % (42.0-75.0); Mean Corpuscular HGB CONC 30.8 g/dL (32.0-36.0); Mean Corpuscular Hemoglobin 29.7 pg (27.0-31.0); Mean Corpuscular Volume 96.4 fL (78.0-98.0); Mean Platelet Volume 9.5 fL (7.4-10.4); Platelet Count 176 thou/uL (130-400); RBC Distribution Width 12.6 % (11.5-14.5); Red Blood Cell (RBC) Count 3.01 mill/uL (4.20-5.40); White Blood Cell (WBC) Count 6.5 thou/uL (4.8-10.8)
--- NOTE | 2018-12-18 06:46 | PRG ---
DATE OF SERVICE: 12/18/2018 HISTORY OF PRESENT ILLNESS: Ms. Lehman is a 73-year-old white female who was admitted for shortness of breath secondary to congestive heart failure. As per note by Cardiology, this patient most likely has a history of diastolic dysfunction. Her echo shows a normal EF. She was diuresed. However, renal function is worsened, and yesterday this was noted at 4. For that reason, diuretics have been on hold. In addition, we started her on albumin infusion. This morning, she is feeling better. She denies any chest pain or shortness of breath. OBJECTIVE: VITAL SIGNS: Blood pressure is 140/68, heart rate 68, respiratory rate 16, temperature 98.2, and pulse ox 92%. GENERAL: Awake, alert, and comfortable, not in overt distress. SKIN: Adequate turgor. HEENT: Slightly pale conjunctivae. Anicteric sclerae. NECK: No neck mass. No carotid bruits. No JVD. CHEST: No deformities. LUNGS: Clear breath sounds. No wheezing. No crackles. HEART: Normal sinus rhythm. No murmurs, gallops, or rubs. ABDOMEN: Globular, soft, and nontender. No masses. EXTREMITIES: No edema. No deformities. MEDICATIONS: Medications of December 18, 2018, were reviewed. LABORATORY DATA: Laboratories of December 18, 2018, were pending. On December 17, 2018; white count 6.5, hemoglobin 9.4. Sodium 139, potassium 4.3, chloride 106, carbon dioxide 26, BUN 47, creatinine 4.09, glucose 147, calcium 8.2. ASSESSMENT AND PLAN: 1. Acute kidney injury on top of chronic renal failure, superimposed prerenal azotemia. This is most likely related to previous diuretic regimen that the patient had. She had also an episode of low blood pressure at one time. For that reason, BP medications have been adjusted and placed on hold. Her last creatinine was 4.0. I have given her an albumin infusion and I do anticipate improvement with the renal function. At the present time, there is no indication for any dialytic intervention. 2. Congestive heart failure-diastolic dysfunction. Clinically, asymptomatic. Continue albumin infusion. We will recheck basic metabolic profile and CBC in a.m. Job ID: [id number]
[2018-12-18 06:51] LABS: Anion Gap 13 mmol/L (10-20); BUN (Urea Nitrogen) 44 mg/dL (9.8-20.1); Calc. Creatinine Clearance 22 mL/min (70-130); Calcium 8.7 mg/dL (7.8-10.44); Carbon Dioxide 24 mmol/L (23-31); Chloride 108 mmol/L (98-107); Estimated GFR-MDRD 11; Glucose 112 mg/dL (83-110); Potassium 4.6 mmol/L (3.5-5.1); Sodium 140 mmol/L (136-145)
[2018-12-18] MEDS: NIFEdipine XL 60 MG TAB PO SCH (09:40)
[2018-12-18] MEDS: Apixaban 5 MG TAB PO SCH ×2 (09:40→21:10)
[2018-12-18] MEDS: Ezetimibe 10 MG TAB PO SCH (09:40)
[2018-12-18] MEDS: HumaLOG 300 UNITS/3 ML VIAL SC PRN (11:57)
--- NOTE | 2018-12-18 13:24 | PDOC.PN ---
- Subjective Encounter Start Date: 12/18/18 Encounter Start Time: 07:40 Pt seen for followup re: UTI. Sleepy but arousable, no new complaints. - Objective Resuscitation Status - Order Detail: 12/14/18 18:20 Resuscitation Status Routine Resuscitation Status: FULL: Full Resuscitation MAR Reviewed: Yes Vital Signs & Weight: Vital Signs (12 hours) Temp Pulse Resp BP BP Pulse Ox 12/18/18 12:04 97.9 F 80 14 176/74 H 95 12/18/18 09:40 95 12/18/18 07:39 98.0 F 70 18 158/71 H 95 12/18/18 03:52 98.2 F 68 16 140/68 92 L Weight Admit Weight 252 lb Weight 252 lb I&O: 12/17/18 12/18/18 12/19/18 06:59 06:59 06:59 Intake Total 460 480 Output Total 425 1100 Balance 35 -620 Result Diagrams: 12/18/18 06:03 12/18/18 06:03 Additional Labs: Accuchecks 12/18/18 12/18/18 12/17/18 11:05 05:25 20:33 POC Glucose 212 H 134 H 244 H 12/17/18 16:56 POC Glucose 243 H EKG Reviewed by me: Yes (Tele: NSR) Phys Exam - Physical Examination Constitutional: NAD HEENT: moist MMs Neck: supple Respiratory: clear to auscultation bilateral Cardiovascular: RRR Gastrointestinal: soft Musculoskeletal: edema present Neurological: moves all 4 limbs Psychiatric: normal affect Skin: no rash Dx/Plan (1) UTI (urinary tract infection) Status: Acute Comment: continue ceftriaxone (2) Acute worsening of stage 4 chronic kidney disease Code(s): N18.4 - CHRONIC KIDNEY DISEASE, STAGE 4 (SEVERE) Status: Acute Comment: pt receiving albumin (3) Diastolic CHF, acute on chronic Code(s): I50.33 - ACUTE ON CHRONIC DIASTOLIC (CONGESTIVE) HEART FAILURE Status : Acute Comment: Lasix discontinued for now (4) DM type 2 (diabetes mellitus, type 2) Status: Chronic Comment: continue accuchecks, insulin sliding scale (5) Dyslipidemia Code(s): E78.5 - HYPERLIPIDEMIA, UNSPECIFIED Status: Chronic Comment: on Lipitor (6) GERD (gastroesophageal reflux disease) Code(s): K21.9 - GASTRO-ESOPHAGEAL REFLUX DISEASE WITHOUT ESOPHAGITIS Status: Chronic Comment: stable (7) Hypertension Code(s): I10 - ESSENTIAL (PRIMARY) HYPERTENSION Status: Chronic Comment: BP high, increase nifedipine to 90 mg PO daily - Plan * . Review of Systems - Review of Systems Constitutional: negative: fever, chills, sweats, weakness, malaise, other Respiratory: SOB with Excertion. negative: Cough, Shortness of Breath, Pleuritic Pain, Wheezing - Medications/Allergies Allergies/Adverse Reactions: Allergies Allergy/AdvReac Type Severity Reaction Status Date / Time codeine AdvReac Intermediate Nausea Verified 11/21/16 07:19 morphine AdvReac Intermediate Nausea Verified 11/21/16 07:19 Medications: Current Medications Acetaminophen (Tylenol) 650 mg PO Q4H PRN PRN Reason: Headache/Fever/Mild Pain (1-3) Apixaban (Eliquis) 5 mg PO BID [facility] Last Admin: 12/18/18 09:40 Dose: 5 mg Aspirin (Aspirin Chewable) 81 mg PO [facility] Last Admin: 12/17/18 20:45 Dose: 81 mg Carvedilol (Coreg) 12.5 mg PO BID[facility] Dextrose/Water (Dextrose 50%) 25 gm SLOW IVP PRN PRN PRN Reason: Hypoglycemia Ezetimibe (Zetia) 10 mg PO DAILY [facility] Last Admin: 12/18/18 09:40 Dose: 10 mg Famotidine (Pepcid) 20 mg PO QPM [facility] Last Admin: 12/17/18 20:45 Dose: 20 mg Glucagon (Glucagon) 1 mg IM PRN PRN PRN Reason: Hypoglycemia Hydralazine HCl (Apresoline) 5 mg SLOW IVP Q6H PRN PRN Reason: SBP >= 180 Last Admin: 12/15/18 03:28 Dose: 5 mg Dextrose/Water (D5w) 1,000 mls @ 0 mls/hr IV .Q0M PRN PRN Reason: Hypoglycemia Insulin Glargine 25 units/ (Miscellaneous Medication) 0.25 mls @ 0 mls/hr SC [facility] Last Admin: 12/17/18 20:46 Dose: 0.25 mls Ceftriaxone Sodium 1 gm/ (Sodium Chloride) 100 mls @ 200 mls/hr IVPB Q24HR [facility] Last Admin: 12/17/18 16:19 Dose: 100 mls Insulin Human Lispro (Humalog) 0 units SC .MILD SLIDING SCALE PRN PRN Reason: Mild Correctional Scale Last Admin: 12/18/18 11:57 Dose: 3 units Isosorbide Mononitrate (Imdur) 60 mg PO HS [facility] Last Admin: 12/17/18 20:45 Dose: 60 mg Montelukast Sodium (Singulair) 10 mg PO HS [facility] Last Admin: 12/17/18 20:45 Dose: 10 mg Nifedipine (Procardia Xl) 60 mg PO DAILY [facility] Last Admin: 12/18/18 09:40 Dose: 60 mg Ondansetron HCl (Zofran) 4 mg IVP Q6H PRN PRN Reason: Nausea/Vomiting Last Admin: 12/17/18 12:09 Dose: 4 mg Senna/Docusate Sodium (Senokot S) 2 tab PO BID PRN PRN Reason: Constipation Sodium Chloride (Flush - Normal Saline) 10 ml IVF Q12HR [facility] Last Admin: 12/18/18 09:40 Dose: 10 ml Sodium Chloride (Flush - Normal Saline) 10 ml IVF PRN PRN PRN Reason: Saline Flush
--- NOTE | 2018-12-18 13:28 | EKG ---
Test Reason : Blood Pressure : / mmHG Vent. Rate : 078 BPM Atrial Rate : 078 BPM P-R Int : 142 ms QRS Dur : 158 ms QT Int : 418 ms P-R-T Axes : 099 -34 030 degrees QTc Int : 476 ms Sinus rhythm with Premature supraventricular complexes Left axis deviation Right bundle branch block Voltage criteria for left ventricular hypertrophy Abnormal ECG Similar to 09/17/2017 Confirmed by ABELARDO TRAVIS DO ([id number]), editor [employer] ODELL MCKEON ([id number]) on 12/18/2018 1:28:17 PM Referred By: Confirmed By:ABELARDO TRAVIS DO
[2018-12-18] MEDS: cefTRIAXone\\ROCEPHIN 1 GM in Sodium Chloride 0.9% 100 ML IVPB SCH (16:16)
[2018-12-18] MEDS: Carvedilol 6.25 MG TAB PO SCH (16:16)
[2018-12-18] MEDS ORDERED: Sodium Chloride 0.65% Nasal 44 ML BOT EA NARE PRN (18:36)
[2018-12-18] MEDS: Sodium Chloride 0.9% 1,000 ML IV SCH (21:09)
[2018-12-18] MEDS: Aspirin Chewable 81 MG TAB PO SCH (21:10)
[2018-12-18] MEDS: Famotidine 20 MG TAB PO SCH (21:10)
[2018-12-18] MEDS: Montelukast Sodium 10 mg Tablet PO SCH (21:10)
[2018-12-18] MEDS: Insulin Glargine 25 UNITS in Pre-Filled Syringe SC SCH (21:11)
[2018-12-19] MEDS: Sodium Chloride 0.9% 1,000 ML IV SCH ×2 (05:49→16:27)
[2018-12-19 07:52] LABS: #Eosinphils 0.2 thou/uL (0.0-0.7); #Lymphocytes 2.3 thou/uL (1.20-3.40); #Monocytes 0.7 thou/uL (0.11-0.59); #Neutrophils 4.4 thou/uL (1.40-6.50); %Basophils 0.6 % (0.0-1.0); %Eosinophils 2.2 % (0.0-10.0); %Lymphocytes 29.7 % (21.0-51.0); %Monocytes 9.6 % (0.0-10.0); %Neutrophils 57.9 % (42.0-75.0); Hemoglobin 9.1 g/dL (12.0-16.0); Mean Corpuscular HGB CONC 31.1 g/dL (32.0-36.0); Mean Corpuscular Hemoglobin 30.1 pg (27.0-31.0); Mean Corpuscular Volume 96.7 fL (78.0-98.0); Mean Platelet Volume 9.4 fL (7.4-10.4); Platelet Count 180 thou/uL (130-400); RBC Distribution Width 12.6 % (11.5-14.5); Red Blood Cell (RBC) Count 3.03 mill/uL (4.20-5.40); White Blood Cell (WBC) Count 7.7 thou/uL (4.8-10.8)
[2018-12-19 08:09] LABS: Anion Gap 12 mmol/L (10-20); BUN (Urea Nitrogen) 43 mg/dL (9.8-20.1); Calc. Creatinine Clearance 23 mL/min (70-130); Calcium 8.4 mg/dL (7.8-10.44); Carbon Dioxide 24 mmol/L (23-31); Chloride 110 mmol/L (98-107); Estimated GFR-MDRD 11; Glucose 142 mg/dL (83-110); Potassium 4.7 mmol/L (3.5-5.1); Sodium 141 mmol/L (136-145)
[2018-12-19] MEDS: NIFEdipine XL 90 MG TAB PO SCH (08:57)
[2018-12-19] MEDS: Carvedilol 6.25 MG TAB PO SCH ×2 (08:57→16:26)
[2018-12-19] MEDS: Ezetimibe 10 MG TAB PO SCH (08:58)
[2018-12-19] MEDS: Apixaban 5 MG TAB PO SCH ×2 (08:58→21:37)
--- NOTE | 2018-12-19 10:23 | PRG ---
DATE OF SERVICE: 12/19/2018 SUBJECTIVE: Ms. Lehman is a 73-year-old white female, followed by the Renal Service for acute kidney injury that is hemodynamically-mediated dysfunction top of her chronic renal failure. Earlier, the patient complained of some chest pressure, but this was said to have been transient. Recently adjustment of BP medications have been made. During the last several days, renal function has been worsening. For that reason, she has been offered diuretics. OBJECTIVE: VITAL SIGNS: Blood pressure is 138/62, heart rate 67, respiratory rate 16, temperature 97.8, and pulse ox 94%. GENERAL: Noted to be awake, alert, comfortable, not in overt distress. SKIN: Adequate turgor. HEENT: She has a pinkish conjunctivae. Anicteric sclerae. NECK: No neck mass. No carotid bruits. No JVD. CHEST: No deformities. LUNGS: Clear breath sounds. HEART: Normal sinus rhythm. No murmur. No gallops. No rubs. ABDOMEN: Globular, soft, nontender. No masses. EXTREMITIES: Trace edema. MEDICATIONS: Medications of December 19, 2018, reviewed. LABORATORY DATA: Laboratories of December 19, 2018; white count 7.7, hemoglobin 9.1. Sodium 141, potassium 4.7, chloride 110, carbon dioxide 24, BUN 43, creatinine 3.9, GFR 11 mL/minute, calcium 8.4. ASSESSMENT AND PLAN: 1. Acute kidney injury - superimposed hemodynamically-mediated renal function. Creatinine slightly better from 4.12 to 3.9. Please note, she was started on normal saline yesterday. Continue current management. There is no indication for any emergent dialysis with this patient. 2. Chest pain/chest pressure. This was transient in nature. On close questioning, she is denying any shortness of breath. 3. Leg edema - this could be related from the nifedipine. If needed, we can change nifedipine to a different antihypertensive regimen. 4. Borderline anemia, continue to observe. 5. Overall agree with current management. Job ID: [id number]
--- NOTE | 2018-12-19 10:51 | RAD ---
EXAM: PA and lateral chest INDICATIONS: Shortness of breath COMPARISON: 12/14/2018 FINDINGS: Cardiomegaly with postop sternotomy change. Mild vascular congestion. Mild interstitial con gestion. No focal infiltrate or significant effusion. IMPRESSION: Mild congestive change as described
[2018-12-19] MEDS: HumaLOG 300 UNITS/3 ML VIAL SC PRN ×2 (12:29→18:22)
--- NOTE | 2018-12-19 15:06 | PDOC.CTH ---
Cardiology Progress Note - Subjective No complaints today. Cr Improved. Patient converted to AFlutter, rate- controlled last night. - Objective Vital Signs Temp Pulse Resp BP BP Pulse Ox 12/19/18 12:33 98.0 F 73 16 139/63 98 12/19/18 08:57 94 L 12/19/18 07:36 97.8 F 67 16 138/62 94 L 12/19/18 04:00 98.5 F 58 L 20 141/67 H 92 L Admit Weight 252 lb Weight 255 lb 12/18/18 12/19/18 12/20/18 06:59 06:59 06:59 Intake Total 480 2980 Output Total 1100 2350 Balance -620 630 - Physical Examination General/Neuro: alert & oriented x3 Neck: no JVD present Lungs: CTA Heart: RRR Abdomen: NT/ND - Labs Result Diagrams: 12/19/18 07:34 12/19/18 07:34 Troponin/CKMB Troponin I 0.012 ng/mL (< 0.028) 12/14/18 20:59 - Assessment/Plan 1. Acute on chronic diastolic CHF 2. TRAE/CKD 3. CAD s/p CABG 4. history of post-op AFib 5. Atrial Flutter Continue diuretic mgmt per renal team. No changes currently from my standpoint. On Eliquis. ? EP to see regarding Flutter.
[2018-12-19] MEDS: cefTRIAXone\\ROCEPHIN 1 GM in Sodium Chloride 0.9% 100 ML IVPB SCH (16:25)
--- NOTE | 2018-12-19 17:56 | PDOC.PN ---
- Subjective Encounter Start Date: 12/19/18 Encounter Start Time: 07:40 Pt seen for followup re; UTI. Reports feeling well now, had shortness of breath earlier. - Objective Resuscitation Status - Order Detail: 12/14/18 18:20 Resuscitation Status Routine Resuscitation Status: FULL: Full Resuscitation MAR Reviewed: Yes Vital Signs & Weight: Vital Signs (12 hours) Temp Pulse Pulse Pulse Resp BP BP 12/19/18 16:36 98.1 F 76 18 12/19/18 14:32 88 77 127/59 L 124/58 L 12/19/18 12:33 98.0 F 73 16 12/19/18 08:57 12/19/18 07:36 97.8 F 67 16 BP BP Pulse Ox Pulse Ox Pulse Ox 12/19/18 16:36 133/61 97 12/19/18 14:32 95 96 12/19/18 12:33 139/63 98 12/19/18 08:57 94 L 12/19/18 07:36 138/62 94 L Weight Admit Weight 252 lb Weight 255 lb I&O: 12/18/18 12/19/18 12/20/18 06:59 06:59 06:59 Intake Total 480 2980 Output Total 1100 2350 Balance -620 630 Result Diagrams: 12/19/18 07:34 12/19/18 07:34 Additional Labs: Accuchecks 12/19/18 12/19/18 12/19/18 17:08 11:18 05:55 POC Glucose 231 H 232 H 169 H 12/18/18 12/18/18 12/14/18 20:41 17:06 20:43 POC Glucose 210 H 166 H 105 EKG Reviewed by me: Yes (Tele: jean nguyen last night) Phys Exam - Physical Examination Morbid obesity HEENT: moist MMs Neck: supple Respiratory: clear to auscultation bilateral Cardiovascular: RRR Gastrointestinal: soft Musculoskeletal: edema present Neurological: moves all 4 limbs Psychiatric: normal affect Dx/Plan (1) UTI (urinary tract infection) Status: Acute Comment: continue ceftriaxone for E. coli (2) Acute worsening of stage 4 chronic kidney disease Code(s): N18.4 - CHRONIC KIDNEY DISEASE, STAGE 4 (SEVERE) Status: Acute Comment: pt receiving albumin, creatinine improved today (3) Diastolic CHF, acute on chronic Code(s): I50.33 - ACUTE ON CHRONIC DIASTOLIC (CONGESTIVE) HEART FAILURE Status : Acute Comment: Lasix discontinued for now, check chest x-ray (4) DM type 2 (diabetes mellitus, type 2) Status: Chronic Comment: sugars still high, change insulin sliding scale to moderate (5) Dyslipidemia Code(s): E78.5 - HYPERLIPIDEMIA, UNSPECIFIED Status: Chronic Comment: on Lipitor (6) GERD (gastroesophageal reflux disease) Code(s): K21.9 - GASTRO-ESOPHAGEAL REFLUX DISEASE WITHOUT ESOPHAGITIS Status: Chronic Comment: stable (7) Hypertension Code(s): I10 - ESSENTIAL (PRIMARY) HYPERTENSION Status: Chronic Comment: controlled (8) Morbid obesity Code(s): E66.01 - MORBID (SEVERE) OBESITY DUE TO EXCESS CALORIES Status: Chronic - Plan * . May need EP consult in AM for jean nguyen Review of Systems - Review of Systems Respiratory: SOB with Excertion. negative: Cough, Shortness of Breath, Pleuritic Pain, Wheezing Cardiovascular: negative: chest pain, palpitations, orthopnea, paroxysmal nocturnal dyspnea, edema, light headedness - Medications/Allergies Allergies/Adverse Reactions: Allergies Allergy/AdvReac Type Severity Reaction Status Date / Time codeine AdvReac Intermediate Nausea Verified 11/21/16 07:19 morphine AdvReac Intermediate Nausea Verified 11/21/16 07:19 Medications: Current Medications Acetaminophen (Tylenol) 650 mg PO Q4H PRN PRN Reason: Headache/Fever/Mild Pain (1-3) Apixaban (Eliquis) 5 mg PO BID [facility] Last Admin: 12/19/18 08:58 Dose: 5 mg Aspirin (Aspirin Chewable) 81 mg PO HS [facility] Last Admin: 12/18/18 21:10 Dose: 81 mg Carvedilol (Coreg) 12.5 mg PO BID-WM [facility] Last Admin: 12/19/18 16:26 Dose: 12.5 mg Dextrose/Water (Dextrose 50%) 25 gm SLOW IVP PRN PRN PRN Reason: Hypoglycemia Ezetimibe (Zetia) 10 mg PO DAILY [facility] Last Admin: 12/19/18 08:58 Dose: 10 mg Famotidine (Pepcid) 20 mg PO QPM [facility] Last Admin: 12/18/18 21:10 Dose: 20 mg Glucagon (Glucagon) 1 mg IM PRN PRN PRN Reason: Hypoglycemia Hydralazine HCl (Apresoline) 5 mg SLOW IVP Q6H PRN PRN Reason: SBP >= 180 Last Admin: 12/15/18 03:28 Dose: 5 mg Dextrose/Water (D5w) 1,000 mls @ 0 mls/hr IV .Q0M PRN PRN Reason: Hypoglycemia Insulin Glargine 25 units/ (Miscellaneous Medication) 0.25 mls @ 0 mls/hr SC [facility] Last Admin: 12/18/18 21:11 Dose: 0.25 mls Ceftriaxone Sodium 1 gm/ (Sodium Chloride) 100 mls @ 200 mls/hr IVPB Q24HR [facility] Last Admin: 12/19/18 16:25 Dose: 100 mls Sodium Chloride (Normal Saline 0.9%) 1,000 mls @ 100 mls/hr IV .Q10H [facility] Last Admin: 12/19/18 16:27 Dose: Not Given Insulin Human Lispro (Humalog) 0 units SC .MILD SLIDING SCALE PRN PRN Reason: Mild Correctional Scale Last Admin: 12/19/18 12:29 Dose: 3 units Isosorbide Mononitrate (Imdur) 60 mg PO [facility] Last Admin: 12/18/18 21:10 Dose: 60 mg Montelukast Sodium (Singulair) 10 mg PO [facility] Last Admin: 12/18/18 21:10 Dose: 10 mg Nifedipine (Procardia Xl) 90 mg PO DAILY [facility] Last Admin: 12/19/18 08:57 Dose: 90 mg Ondansetron HCl (Zofran) 4 mg IVP Q6H PRN PRN Reason: Nausea/Vomiting Last Admin: 12/17/18 12:09 Dose: 4 mg Senna/Docusate Sodium (Senokot S) 2 tab PO BID PRN PRN Reason: Constipation Sodium Chloride (Flush - Normal Saline) 10 ml IVF Q12HR [facility] Last Admin: 12/19/18 08:58 Dose: Not Given Sodium Chloride (Flush - Normal Saline) 10 ml IVF PRN PRN PRN Reason: Saline Flush Sodium Chloride ([place] Nasal [place] 0.65%) 0 ml EA NARE TID PRN PRN Reason: Nasal Congestion
[2018-12-19] MEDS: Montelukast Sodium 10 mg Tablet PO SCH (21:36)
[2018-12-19] MEDS: Famotidine 20 MG TAB PO SCH (21:37)
[2018-12-19] MEDS: Insulin Glargine 25 UNITS in Pre-Filled Syringe SC SCH (21:37)
[2018-12-19] MEDS: Aspirin Chewable 81 MG TAB PO SCH (21:37)
[2018-12-20] MEDS: Sodium Chloride 0.9% 1,000 ML IV SCH ×3 (00:34→22:49)
[2018-12-20 05:38] LABS: #Basophils 0.1 thou/uL (0.0-0.2); #Eosinphils 0.3 thou/uL (0.0-0.7); #Lymphocytes 2.1 thou/uL (1.20-3.40); #Monocytes 0.6 thou/uL (0.11-0.59); #Neutrophils 4.4 thou/uL (1.40-6.50); %Basophils 0.8 % (0.0-1.0); %Eosinophils 3.6 % (0.0-10.0); %Monocytes 8.1 % (0.0-10.0); %Neutrophils 59.5 % (42.0-75.0); Hemoglobin 8.8 g/dL (12.0-16.0); Mean Corpuscular HGB CONC 30.4 g/dL (32.0-36.0); Mean Corpuscular Hemoglobin 29.5 pg (27.0-31.0); Mean Corpuscular Volume 96.9 fL (78.0-98.0); Mean Platelet Volume 9.6 fL (7.4-10.4); Platelet Count 178 thou/uL (130-400); RBC Distribution Width 12.8 % (11.5-14.5); White Blood Cell (WBC) Count 7.4 thou/uL (4.8-10.8)
[2018-12-20 05:44] LABS: Anion Gap 11 mmol/L (10-20); BUN (Urea Nitrogen) 44 mg/dL (9.8-20.1); Calc. Creatinine Clearance 25 mL/min (70-130); Calcium 8.6 mg/dL (7.8-10.44); Carbon Dioxide 22 mmol/L (23-31); Chloride 111 mmol/L (98-107); Estimated GFR-MDRD 12; Glucose 152 mg/dL (83-110); Potassium 4.3 mmol/L (3.5-5.1); Sodium 140 mmol/L (136-145)
[2018-12-20] MEDS: Ezetimibe 10 MG TAB PO SCH (07:59)
[2018-12-20] MEDS: NIFEdipine XL 90 MG TAB PO SCH (07:59)
[2018-12-20] MEDS: Apixaban 5 MG TAB PO SCH ×2 (08:00→20:46)
[2018-12-20] MEDS: Carvedilol 6.25 MG TAB PO SCH ×2 (08:00→17:49)
--- NOTE | 2018-12-20 09:40 | PRG ---
DATE OF SERVICE: 12/20/2018 SUBJECTIVE: Ms. Lehman is a 73-year-old white female, followed up for her acute kidney injury on top of her chronic renal failure. She has superimposed hemodynamically-mediated renal dysfunction. This morning, she is feeling better. She denies any chest pain or shortness of breath. OBJECTIVE: VITAL SIGNS: Blood pressure 123/58, heart rate 78, respiratory rate 18, temperature 98, and pulse ox is 97%. GENERAL: Noted to be awake, alert, comfortable, not in distress. SKIN: Adequate turgor. HEENT: She has pinkish conjunctivae. Anicteric sclerae. NECK: No neck mass. No carotid bruits. No JVD. CHEST: No deformities. LUNGS: Clear breath sounds. HEART: Normal sinus rhythm. No murmur. No gallops or rubs. ABDOMEN: Globular, soft, nontender. No masses. EXTREMITIES: Positive for edema. MEDICATIONS: Medications of December 20, 2018, were reviewed. LABORATORY DATA: Laboratories of December 20, 2018; white count 7.4 and hemoglobin 8.8. Sodium 140, potassium 4.3, chloride 111, carbon dioxide 22, BUN 44, creatinine 3.66, glucose 152, and calcium 8.6. ASSESSMENT AND PLAN: 1. Acute kidney injury/chronic renal failure - slightly improved creatinine from a peak of 4.01 to a most recent value of 3.66. GFR is 12 mL/minute. Continue current management. Continue to hold off diuretics for the moment. a. There is no indication for any dialytic intervention. b. The patient has received normal saline, and there seemed to be an improvement with the renal function. 2. Congestive heart failure, mild - most likely diastolic dysfunction. Cardiac echo showed normal ejection fraction. 3. Borderline anemia. Continue to observe. Check stool cards. 4. Recheck basic metabolic panel and CBC in a.m. Job ID: [id number]
[2018-12-20 13:12] VITALS: BMI 41.9
--- NOTE | 2018-12-20 13:54 | PDOC.PN ---
- Subjective Encounter Start Date: 12/20/18 Encounter Start Time: 08:20 Pt seen for followup re: UTI. Feels better, no complaints today. - Objective Resuscitation Status - Order Detail: 12/14/18 18:20 Resuscitation Status Routine Resuscitation Status: FULL: Full Resuscitation Vital Signs & Weight: Vital Signs (12 hours) Temp Pulse Pulse Pulse Resp BP BP 12/20/18 12:45 97.8 F 102 H 18 12/20/18 11:05 73 77 134/61 12/20/18 08:00 123/58 L 12/20/18 07:59 78 12/20/18 07:25 12/20/18 07:22 98.0 F 78 18 12/20/18 04:00 99.6 F 77 16 BP BP BP Pulse Ox Pulse Ox Pulse Ox 12/20/18 12:45 132/71 94 L 12/20/18 11:05 139/63 95 94 L 12/20/18 08:00 12/20/18 07:59 12/20/18 07:25 95 12/20/18 07:22 188/81 H 97 12/20/18 04:00 181/73 H 94 L Weight Admit Weight 252 lb Weight 260 lb I&O: 12/19/18 12/20/18 12/21/18 06:59 06:59 06:59 Intake Total 2980 1680 Output Total 2350 1500 Balance 630 180 Result Diagrams: 12/20/18 04:40 12/20/18 04:40 Additional Labs: Accuchecks 12/20/18 12/20/18 12/19/18 10:55 05:13 19:47 POC Glucose 234 H 163 H 264 H 12/19/18 12/14/18 17:08 20:43 POC Glucose 231 H 105 Phys Exam - Physical Examination Constitutional: NAD HEENT: moist MMs Neck: supple Respiratory: clear to auscultation bilateral Cardiovascular: RRR Musculoskeletal: edema present Neurological: moves all 4 limbs Psychiatric: normal affect Dx/Plan (1) UTI (urinary tract infection) Status: Acute Comment: continue ceftriaxone (2) Acute worsening of stage 4 chronic kidney disease Code(s): N18.4 - CHRONIC KIDNEY DISEASE, STAGE 4 (SEVERE) Status: Acute Comment: pt receiving albumin, creatinine improved to 3.66 today (3) Diastolic CHF, acute on chronic Code(s): I50.33 - ACUTE ON CHRONIC DIASTOLIC (CONGESTIVE) HEART FAILURE Status : Acute Comment: Lasix discontinued for now (4) DM type 2 (diabetes mellitus, type 2) Status: Chronic Comment: sugars still high, increase Lantus to 28 units SC HS (5) Dyslipidemia Code(s): E78.5 - HYPERLIPIDEMIA, UNSPECIFIED Status: Chronic Comment: on Lipitor (6) GERD (gastroesophageal reflux disease) Code(s): K21.9 - GASTRO-ESOPHAGEAL REFLUX DISEASE WITHOUT ESOPHAGITIS Status: Chronic Comment: stable (7) Hypertension Code(s): I10 - ESSENTIAL (PRIMARY) HYPERTENSION Status: Chronic Comment: controlled (8) Morbid obesity Code(s): E66.01 - MORBID (SEVERE) OBESITY DUE TO EXCESS CALORIES Status: Chronic - Plan * . Review of Systems - Review of Systems Respiratory: SOB with Excertion Cardiovascular: negative: chest pain, palpitations, orthopnea, paroxysmal nocturnal dyspnea, edema, light headedness Gastrointestinal: negative: Nausea, Vomiting, Abdominal Pain, Diarrhea, Constipation, Melena, Hematochezia - Medications/Allergies Allergies/Adverse Reactions: Allergies Allergy/AdvReac Type Severity Reaction Status Date / Time codeine AdvReac Intermediate Nausea Verified 11/21/16 07:19 morphine AdvReac Intermediate Nausea Verified 11/21/16 07:19 Medications: Current Medications Acetaminophen (Tylenol) 650 mg PO Q4H PRN PRN Reason: Headache/Fever/Mild Pain (1-3) Apixaban (Eliquis) 5 mg PO BID [facility] Last Admin: 12/20/18 08:00 Dose: 5 mg Aspirin (Aspirin Chewable) 81 mg PO HS [facility] Last Admin: 12/19/18 21:37 Dose: 81 mg Carvedilol (Coreg) 12.5 mg PO BID-WM [facility] Last Admin: 12/20/18 08:00 Dose: 12.5 mg Dextrose/Water (Dextrose 50%) 25 gm SLOW IVP PRN PRN PRN Reason: Hypoglycemia Ezetimibe (Zetia) 10 mg PO DAILY [facility] Last Admin: 12/20/18 07:59 Dose: 10 mg Famotidine (Pepcid) 20 mg PO QPM [facility] Last Admin: 12/19/18 21:37 Dose: 20 mg Glucagon (Glucagon) 1 mg IM PRN PRN PRN Reason: Hypoglycemia Hydralazine HCl (Apresoline) 5 mg SLOW IVP Q6H PRN PRN Reason: SBP >= 180 Last Admin: 12/15/18 03:28 Dose: 5 mg Dextrose/Water (D5w) 1,000 mls @ 0 mls/hr IV .Q0M PRN PRN Reason: Hypoglycemia Insulin Glargine 25 units/ (Miscellaneous Medication) 0.25 mls @ 0 mls/hr SC [facility] Last Admin: 12/19/18 21:37 Dose: 0.25 mls Ceftriaxone Sodium 1 gm/ (Sodium Chloride) 100 mls @ 200 mls/hr IVPB Q24HR [facility] Last Admin: 12/19/18 16:25 Dose: 100 mls Sodium Chloride (Normal Saline 0.9%) 1,000 mls @ 100 mls/hr IV .Q10H [facility] Last Admin: 12/20/18 00:34 Dose: Not Given Insulin Human Lispro (Humalog) 0 units SC .MODERATE SLIDING SC PRN PRN Reason: Moderate Correctional Scale Last Admin: 12/19/18 18:22 Dose: 4 unit Isosorbide Mononitrate (Imdur) 60 mg PO [facility] Last Admin: 12/19/18 21:37 Dose: 60 mg Montelukast Sodium (Singulair) 10 mg PO [facility] Last Admin: 12/19/18 21:36 Dose: 10 mg Nifedipine (Procardia Xl) 90 mg PO DAILY [facility] Last Admin: 12/20/18 07:59 Dose: 90 mg Ondansetron HCl (Zofran) 4 mg IVP Q6H PRN PRN Reason: Nausea/Vomiting Last Admin: 12/17/18 12:09 Dose: 4 mg Senna/Docusate Sodium (Senokot S) 2 tab PO BID PRN PRN Reason: Constipation Last Admin: 12/19/18 18:22 Dose: 2 tab Sodium Chloride (Flush - Normal Saline) 10 ml IVF Q12HR [facility] Last Admin: 12/20/18 08:00 Dose: 10 ml Sodium Chloride (Flush - Normal Saline) 10 ml IVF PRN PRN PRN Reason: Saline Flush Sodium Chloride ([place] Nasal [place] 0.65%) 0 ml EA NARE TID PRN PRN Reason: Nasal Congestion
[2018-12-20] MEDS: cefTRIAXone\\ROCEPHIN 1 GM in Sodium Chloride 0.9% 100 ML IVPB SCH (17:49)
[2018-12-20] MEDS: HumaLOG 300 UNITS/3 ML VIAL SC PRN (18:23)
[2018-12-20] MEDS: Aspirin Chewable 81 MG TAB PO SCH (20:46)
[2018-12-20] MEDS: Famotidine 20 MG TAB PO SCH (20:46)
[2018-12-20] MEDS: Montelukast Sodium 10 mg Tablet PO SCH (20:46)
[2018-12-20] MEDS: Insulin Glargine 28 UNITS in Pre-Filled Syringe SC SCH (20:47)
[2018-12-21 05:36] LABS: #Basophils 0.1 thou/uL (0.0-0.2); #Eosinphils 0.4 thou/uL (0.0-0.7); #Monocytes 0.8 thou/uL (0.11-0.59); #Neutrophils 4.6 thou/uL (1.40-6.50); %Basophils 0.8 % (0.0-1.0); %Eosinophils 5.4 % (0.0-10.0); %Lymphocytes 25.7 % (21.0-51.0); %Monocytes 9.6 % (0.0-10.0); %Neutrophils 58.5 % (42.0-75.0); Hemoglobin 8.8 g/dL (12.0-16.0); Mean Corpuscular HGB CONC 31.3 g/dL (32.0-36.0); Mean Corpuscular Volume 95.8 fL (78.0-98.0); Mean Platelet Volume 9.5 fL (7.4-10.4); Platelet Count 182 thou/uL (130-400); RBC Distribution Width 12.6 % (11.5-14.5); Red Blood Cell (RBC) Count 2.94 mill/uL (4.20-5.40); White Blood Cell (WBC) Count 7.8 thou/uL (4.8-10.8)
[2018-12-21 06:02] LABS: Anion Gap 12 mmol/L (10-20); BUN (Urea Nitrogen) 44 mg/dL (9.8-20.1); Calc. Creatinine Clearance 25 mL/min (70-130); Calcium 8.6 mg/dL (7.8-10.44); Carbon Dioxide 20 mmol/L (23-31); Chloride 112 mmol/L (98-107); Estimated GFR-MDRD 12; Glucose 127 mg/dL (83-110); Potassium 4.4 mmol/L (3.5-5.1); Sodium 140 mmol/L (136-145)
[2018-12-21] MEDS ORDERED: NIFEdipine XL 90 MG TAB PO SCH (08:20)
[2018-12-21] MEDS: Sodium Chloride 0.9% 1,000 ML IV SCH ×2 (08:36→17:15)
[2018-12-21] MEDS: Carvedilol 6.25 MG TAB PO SCH ×2 (08:38→17:16)
[2018-12-21] MEDS: Ezetimibe 10 MG TAB PO SCH (08:38)
[2018-12-21] MEDS: Apixaban 5 MG TAB PO SCH ×2 (08:40→20:50)
[2018-12-21] MEDS: NIFEdipine XL 30 MG TAB PO SCH (08:49)
[2018-12-21] MEDS: cloNIDine 0.1 MG TAB PO SCH ×2 (08:49→20:50)
--- NOTE | 2018-12-21 09:52 | PRG ---
DATE OF SERVICE: 12/21/2018 SUBJECTIVE: Ms. Lehman is a 73-year-old white female, seen by the Renal Service for acute kidney injury on top of chronic renal failure. She had a superimposed hemodynamically-mediated renal dysfunction. Renal function is holding steady. Diuretics have been adjusted. In addition, BP medications have been resumed. Of interest, the patient is complaining of leg swelling after initiation of the nifedipine. The patient denies any chest pain or shortness of breath. OBJECTIVE: VITAL SIGNS: Blood pressure 161/71, heart rate 74, respiratory rate 18, temperature 98.3, and pulse ox 95%. GENERAL: Awake, alert, sitting comfortable, not in distress. SKIN: Adequate turgor. HEENT: Slightly pale conjunctivae. Anicteric sclerae. NECK: No neck mass. No carotid bruits. No JVD. CHEST: No deformities. LUNGS: Decreased breath sounds. HEART: Normal sinus rhythm. No murmur. No gallops. No rubs. ABDOMEN: Globular, soft, and nontender. No masses. EXTREMITIES: Positive for edema. MEDICATIONS: Medications of December 21, 2018 were reviewed. LABORATORY DATA: Laboratories of December 21, 2018; white count 7.8 and hemoglobin 8.8. Sodium 140, potassium 4.4, chloride 112, carbon dioxide 20, BUN 44, creatinine 3.67, glucose 127, and calcium 8.6. ASSESSMENT AND PLAN: 1. Acute kidney injury/chronic renal failure-superimposed hemodynamically mediated dysfunction. Stabilizing renal function. Creatinine 3.6 with a GFR 12 mL per minute. Continue current management. Hold off diuretics. The patient is status post volume repletion. 2. Hypertension-due to the complaints of lower leg edema, we will decrease nifedipine from 90 to 30 mg XL tablet once a day. We will also add clonidine 0.1 mg tablet b.i.d. 3. Congestive heart failure secondary to diastolic dysfunction, clinically much improved. 4. Recheck basic metabolic, CBC in a.m. 5. Agree with current management. Job ID: [id number]
--- NOTE | 2018-12-21 15:46 | PDOC.PN ---
- Subjective Encounter Start Date: 12/21/18 Encounter Start Time: 08:40 Pt seen for followup re: UTI. Feels better. - Objective Resuscitation Status - Order Detail: 12/14/18 18:20 Resuscitation Status Routine Resuscitation Status: FULL: Full Resuscitation MAR Reviewed: Yes Vital Signs & Weight: Vital Signs (12 hours) Temp Pulse Resp BP BP BP Pulse Ox 12/21/18 12:30 98.3 F 73 18 136/65 95 12/21/18 08:49 123/58 L 12/21/18 08:38 123/58 L 12/21/18 07:36 98.3 F 74 18 161/71 H 95 12/21/18 07:35 94 L 12/21/18 04:00 99.4 F 75 20 131/59 L 92 L Weight Admit Weight 252 lb Weight 260 lb 3.2 oz I&O: 12/20/18 12/21/18 12/22/18 06:59 06:59 06:59 Intake Total 1680 720 Output Total 1500 1020 Balance 180 -300 Result Diagrams: 12/21/18 04:52 12/21/18 04:52 Additional Labs: Accuchecks 12/21/18 12/21/18 12/20/18 10:46 05:45 20:46 POC Glucose 207 H 128 H 162 H 12/20/18 17:06 POC Glucose 202 H EKG Reviewed by me: Yes (Tele: NSR) Phys Exam - Physical Examination Morbid obesity HEENT: moist MMs Neck: supple Respiratory: clear to auscultation bilateral Cardiovascular: RRR Gastrointestinal: soft Neurological: moves all 4 limbs Psychiatric: normal affect Dx/Plan (1) UTI (urinary tract infection) Status: Acute Comment: on ceftriaxone (2) Acute worsening of stage 4 chronic kidney disease Code(s): N18.4 - CHRONIC KIDNEY DISEASE, STAGE 4 (SEVERE) Status: Acute Comment: creatinine stabilizing, 3.67 today (3) Diastolic CHF, acute on chronic Code(s): I50.33 - ACUTE ON CHRONIC DIASTOLIC (CONGESTIVE) HEART FAILURE Status : Acute Comment: off of Lasix (4) DM type 2 (diabetes mellitus, type 2) Status: Chronic Comment: Improved control (5) Dyslipidemia Code(s): E78.5 - HYPERLIPIDEMIA, UNSPECIFIED Status: Chronic Comment: on Lipitor (6) GERD (gastroesophageal reflux disease) Code(s): K21.9 - GASTRO-ESOPHAGEAL REFLUX DISEASE WITHOUT ESOPHAGITIS Status: Chronic Comment: stable (7) Hypertension Code(s): I10 - ESSENTIAL (PRIMARY) HYPERTENSION Status: Chronic Comment: controlled (8) Morbid obesity Code(s): E66.01 - MORBID (SEVERE) OBESITY DUE TO EXCESS CALORIES Status: Chronic - Plan * . Review of Systems - Review of Systems Cardiovascular: negative: chest pain, palpitations, orthopnea, paroxysmal nocturnal dyspnea, edema, light headedness Gastrointestinal: negative: Nausea, Vomiting, Abdominal Pain, Diarrhea, Constipation, Melena, Hematochezia - Medications/Allergies Allergies/Adverse Reactions: Allergies Allergy/AdvReac Type Severity Reaction Status Date / Time codeine AdvReac Intermediate Nausea Verified 11/21/16 07:19 morphine AdvReac Intermediate Nausea Verified 11/21/16 07:19 Medications: Current Medications Acetaminophen (Tylenol) 650 mg PO Q4H PRN PRN Reason: Headache/Fever/Mild Pain (1-3) Apixaban (Eliquis) 5 mg PO BID [facility] Last Admin: 12/21/18 08:40 Dose: Not Given Aspirin (Aspirin Chewable) 81 mg PO HS [facility] Last Admin: 12/20/18 20:46 Dose: 81 mg Carvedilol (Coreg) 12.5 mg PO BID-WM [facility] Last Admin: 12/21/18 08:38 Dose: 12.5 mg Clonidine (Catapres) 0.1 mg PO BID [facility] Last Admin: 12/21/18 08:49 Dose: 0.1 mg Dextrose/Water (Dextrose 50%) 25 gm SLOW IVP PRN PRN PRN Reason: Hypoglycemia Ezetimibe (Zetia) 10 mg PO DAILY [facility] Last Admin: 12/21/18 08:38 Dose: 10 mg Famotidine (Pepcid) 20 mg PO QPM [facility] Last Admin: 12/20/18 20:46 Dose: 20 mg Glucagon (Glucagon) 1 mg IM PRN PRN PRN Reason: Hypoglycemia Hydralazine HCl (Apresoline) 5 mg SLOW IVP Q6H PRN PRN Reason: SBP >= 180 Last Admin: 12/15/18 03:28 Dose: 5 mg Dextrose/Water (D5w) 1,000 mls @ 0 mls/hr IV .Q0M PRN PRN Reason: Hypoglycemia Ceftriaxone Sodium 1 gm/ (Sodium Chloride) 100 mls @ 200 mls/hr IVPB Q24HR [facility] Last Admin: 12/20/18 17:49 Dose: 100 mls Sodium Chloride (Normal Saline 0.9%) 1,000 mls @ 100 mls/hr IV .Q10H [facility] Last Admin: 12/21/18 08:36 Dose: Not Given Insulin Glargine 28 units/ (Miscellaneous Medication) 0.28 mls @ 0 mls/hr SC [facility] Last Admin: 12/20/18 20:47 Dose: 0.28 mls Insulin Human Lispro (Humalog) 0 units SC .MODERATE SLIDING SC PRN PRN Reason: Moderate Correctional Scale Last Admin: 12/20/18 18:23 Dose: 4 unit Isosorbide Mononitrate (Imdur) 60 mg PO [facility] Last Admin: 12/20/18 20:46 Dose: 60 mg Lactulose (Lactulose) 20 gm PO DAILYPRN PRN PRN Reason: Constipation Last Admin: 12/20/18 17:48 Dose: 20 gm Montelukast Sodium (Singulair) 10 mg PO [facility] Last Admin: 12/20/18 20:46 Dose: 10 mg Nifedipine (Procardia Xl) 30 mg PO DAILY [facility] Last Admin: 12/21/18 08:49 Dose: 30 mg Ondansetron HCl (Zofran) 4 mg IVP Q6H PRN PRN Reason: Nausea/Vomiting Last Admin: 12/17/18 12:09 Dose: 4 mg Senna/Docusate Sodium (Senokot S) 2 tab PO BID PRN PRN Reason: Constipation Last Admin: 12/19/18 18:22 Dose: 2 tab Sodium Chloride (Flush - Normal Saline) 10 ml IVF Q12HR [facility] Last Admin: 12/21/18 08:52 Dose: 10 ml Sodium Chloride (Flush - Normal Saline) 10 ml IVF PRN PRN PRN Reason: Saline Flush Sodium Chloride ([place] Nasal [place] 0.65%) 0 ml EA NARE TID PRN PRN Reason: Nasal Congestion
[2018-12-21] MEDS: HumaLOG 300 UNITS/3 ML VIAL SC PRN (17:21)
[2018-12-21] MEDS: hydrALAZINE 20 MG/ML VIAL SLOW IVP PRN (17:21)
[2018-12-21] MEDS: cefTRIAXone\\ROCEPHIN 1 GM in Sodium Chloride 0.9% 100 ML IVPB SCH (18:29)
[2018-12-21] MEDS: Insulin Glargine 28 UNITS in Pre-Filled Syringe SC SCH (20:49)
[2018-12-21] MEDS: Famotidine 20 MG TAB PO SCH (20:50)
[2018-12-21] MEDS: Montelukast Sodium 10 mg Tablet PO SCH (20:50)
[2018-12-21] MEDS: Aspirin Chewable 81 MG TAB PO SCH (20:50)
[2018-12-22 05:02] LABS: #Eosinphils 0.4 thou/uL (0.0-0.7); #Lymphocytes 2.2 thou/uL (1.20-3.40); #Monocytes 0.6 thou/uL (0.11-0.59); #Neutrophils 3.3 thou/uL (1.40-6.50); %Basophils 0.6 % (0.0-1.0); %Eosinophils 5.5 % (0.0-10.0); %Neutrophils 50.8 % (42.0-75.0); Hemoglobin 8.8 g/dL (12.0-16.0); Mean Corpuscular Volume 96.7 fL (78.0-98.0); Mean Platelet Volume 9.2 fL (7.4-10.4); Platelet Count 187 thou/uL (130-400); RBC Distribution Width 12.8 % (11.5-14.5); Red Blood Cell (RBC) Count 2.94 mill/uL (4.20-5.40); White Blood Cell (WBC) Count 6.5 thou/uL (4.8-10.8)
[2018-12-22 05:22] LABS: Anion Gap 12 mmol/L (10-20); BUN (Urea Nitrogen) 45 mg/dL (9.8-20.1); Calc. Creatinine Clearance 27 mL/min (70-130); Calcium 8.7 mg/dL (7.8-10.44); Carbon Dioxide 24 mmol/L (23-31); Chloride 111 mmol/L (98-107); Estimated GFR-MDRD 13; Glucose 90 mg/dL (83-110); Potassium 4.8 mmol/L (3.5-5.1); Sodium 142 mmol/L (136-145)
[2018-12-22] MEDS ORDERED: Cefdinir 300 MG CAP PO SCH (09:00)
[2018-12-22] MEDS: Apixaban 5 MG TAB PO SCH (09:04)
[2018-12-22] MEDS: NIFEdipine XL 30 MG TAB PO SCH (09:05)
[2018-12-22] MEDS: Carvedilol 6.25 MG TAB PO SCH (09:05)
[2018-12-22] MEDS: cloNIDine 0.1 MG TAB PO SCH (09:05)
--- NOTE | 2018-12-22 09:25 | PRG ---
DATE OF SERVICE: 12/22/2018 SERVICE: Renal Medicine. SUBJECTIVE: Ms. Lehman is a 73-year-old white female, who was seen by Renal Service for acute kidney injury on top of her chronic renal failure. This was felt to be a hemodynamically-mediated renal dysfunction. The patient received IV volume repletion. In addition, Lasix has been discontinued. Renal function still has been slowly improving over the last 2 to 3 days. In addition, the leg edema is slightly improved. We have decrease her nifedipine from 90 to 30, since we suspect the nifedipine may be playing a role with this. She does have history of CHF/diastolic dysfunction. No new complaints today. She feels better. No chest pain or shortness of breath. OBJECTIVE: VITAL SIGNS: Blood pressure is 143/65, heart rate 64, respiratory rate 20, temperature 97.8, pulse ox 96%. GENERAL: Noted to be awake, alert, comfortable, not in distress. SKIN: Adequate turgor. HEENT: She has a slightly pale conjunctivae. Anicteric sclerae. NECK: No neck mass. No carotid bruits. No JVD. CHEST: No deformities. LUNGS: Decreased breath sounds. HEART: Normal sinus rhythm. No murmurs. No gallops. No rubs. ABDOMEN: Globular, soft, nontender. No masses. EXTREMITIES: Positive for right leg edema, but no deformities. MEDICATIONS: Medications of December 22, 2018, reviewed. LABORATORY DATA: Laboratories of December 22, 2018; white count 6.5, hemoglobin 8.8. Sodium 142, potassium 4.8, chloride 111, carbon dioxide 24, BUN 45, creatinine 3.49, calcium 8.7. ASSESSMENT AND PLAN: 1. Acute kidney injury on top of her chronic renal failure, superimposed hemodynamically-mediated renal dysfunction, much improved with discontinuation of the diuretics as well as with volume repletion in the past. Continue current management. There is no indication for any dialytic intervention. 2. Leg edema, improving with decreased dose of nifedipine. 3. Hypertension, adequate control. Continue current BP regimen. 4. Chronic anemia, stable. 5. We will be rechecking a CBC and basic metabolic profile in a.m. Job ID: [id number]
[2018-12-22] MEDS: Ezetimibe 10 MG TAB PO SCH (10:17)
[2018-12-22 12:01] VITALS: TEMP 97.4
[2018-12-22 12:03] VITALS: BP 138/63
[2018-12-22] MEDS ORDERED: Atorvastatin Calcium 40 MG TAB PO SCH (21:00)
[2018-12-22] MEDS ORDERED: Ezetimibe 10 MG TAB PO SCH (21:00)
--- NOTE | 2018-12-23 01:02 | DIS ---
DATE OF ADMISSION: 12/14/2018 DATE OF DISCHARGE: 12/22/2018 DISCHARGE DIAGNOSES: 1. Diastolic congestive heart failure. 2. Urinary tract infection with Escherichia coli with broad sensitivity. 3. Acute worsening of stage 4 chronic kidney disease. 4. Diabetes mellitus. 5. Hypertension. 6. Dyslipidemia. 7. Gastroesophageal reflux disease. 8. Morbid obesity. 9. Intermittent aflutter. HISTORY OF PRESENT ILLNESS: The patient is a 73-year-old female with a history of diastolic heart failure, who presented to the hospital via the emergency department with a complaint of shortness of breath and chest pain. The patient reported she had remained very compliant with her diet. She had recently been put on steroids by her PCP for cough. She had a hemoglobin of 10.5, BUN 33, creatinine of 3 and a GFR of 15. BNP was 358. Troponins were negative. Appeared to have some vascular congestion on chest x-ray. HOSPITAL COURSE: The patient was admitted with what appeared to be acute on chronic diastolic heart failure and acute on chronic renal failure with chronic stage 4 kidney disease. The patient was seen in consultation by Cardiology and Nephrology. The patient was originally thought to be in more heart failure and had diuresis and symptomatically did improve somewhat, but her renal function was concerning, so she subsequently started receiving gentle hydration with that. Her creatinine did improve slightly. She also had some hypotension which was felt to be exacerbating the renal situation. Therefore, her blood pressure medications were changed. She had some peripheral edema noted and nifedipine was reduced significantly and her Lasix held for a period of time until her blood pressure stabilized. Dr. Nevarez and Dr. Sauer worked together in order to maintain adequate diuresis and antihypertensive regimen. Repeat echocardiogram revealed EF of 60% to 65% with diastolic dysfunction, moderate to severe TR and slightly elevated right ventricular systolic pressures. Once the patient's medications were felt to be stabilized and her renal function stabilized and slightly improved, she was felt to be stable for discharge for outpatient followup. The patient did have a brief episode of atrial flutter in the hospital, started on anticoagulation by Cardiology due to the history of atrial fibrillation in the past. She had good rate control. PHYSICAL EXAMINATION: VITAL SIGNS: On the day of discharge, temperature is 97.4, pulse 69, respirations 18, O2 saturation 97% on room air, BP 138/63. GENERAL APPEARANCE: Age-appropriate female, in no distress. She is awake, alert, pleasant, cooperative. HEART: Regular without murmurs. LUNGS: Clear bilaterally. ABDOMEN: Soft, nontender. EXTREMITIES: Had 1+ edema. DISPOSITION: The patient is discharged home. She is to have a heart healthy diet. Activity as tolerated. MEDICATIONS: Include; 1. Eliquis 2.5 mg b.i.d. 2. Coreg 12.5 mg b.i.d. 3. Omnicef 300 mg daily. 4. Zetia 10 mg daily. 5. Lasix 20 mg daily. 6. Isosorbide 60 mg at bedtime. 7. Singulair 10 mg at bedtime. 8. Nifedipine XL 30 mg daily. She will continue; 1. Aspirin. 2. Nitroglycerin. 3. Lantus. 4. Humalog sliding scale. 5. Tylenol. 6. Catapres. 7. Aldactone. 8. Atorvastatin. 9. Olopatadine. FOLLOWUP: She will follow up with Dr. Bradshaw on 12/27/2018 at 10:00 a.m., Dr. Sauer on 01/12/2019, Dr. Nevarez, 01/12/2019, and she will have home health care interim. She can return to the hospital should she have any problems prior to that time. Time spent in discharge activities, including face to face time with patient, was 34 min. Job ID: [id number] [facility]
[2018-12-23] MEDS ORDERED: Furosemide 40 MG TAB PO SCH (07:30)
== END 2018-12-22 15:51 | disposition home health service (06) | DRG 291 ==
LOC: ERS 14:48 → 2NO 17:38
PROVIDERS: ADMIT Internal Medicine; ATTEND Internal Medicine
DX: I13.0 Hypertensive heart and chronic kidney disease with heart failure and stage 1 through stage 4 chronic kidney disease, or unspecified chronic kidney disease (principal); I50.33 Acute on chronic diastolic (congestive) heart failure; N18.4 Chronic kidney disease, stage 4 (severe); Z68.41 Body mass index [BMI] 40.0-44.9, adult; N17.9 Acute kidney failure, unspecified; N39.0 Urinary tract infection, site not specified; I48.92 Unspecified atrial flutter; I25.10 Atherosclerotic heart disease of native coronary artery without angina pectoris; E11.22 Type 2 diabetes mellitus with diabetic chronic kidney disease; E78.5 Hyperlipidemia, unspecified; E66.01 Morbid (severe) obesity due to excess calories; I95.9 Hypotension, unspecified; K21.9 Gastro-esophageal reflux disease without esophagitis; B96.20 Unspecified Escherichia coli [E. coli] as the cause of diseases classified elsewhere; D64.9 Anemia, unspecified; Z95.5 Presence of coronary angioplasty implant and graft; Z85.3 Personal history of malignant neoplasm of breast; Z90.12 Acquired absence of left breast and nipple; Z90.5 Acquired absence of kidney; Z87.891 Personal history of nicotine dependence; Z88.5 Allergy status to narcotic agent; Z79.82 Long term (current) use of aspirin; Z79.4 Long term (current) use of insulin; Z85.41 Personal history of malignant neoplasm of cervix uteri; Z95.1 Presence of aortocoronary bypass graft; Z90.710 Acquired absence of both cervix and uterus
CPT/HCPCS: 36415; 36416; 71045; 71046; 80048; 80053; 81001; 82274; 82550; 83880; 84484; 85025; 87077; 87086; 87186; 93005; 93010; 93306; 93798; 94760; 96374; J0360; J0696; J1644; J1815; J1940; J2405; J2765; J3490; P9047

== ENCOUNTER 2019-06-29 17:45 | Inpatient (IN) | payer MEDICARE ==
[2019-06-29] MEDS ORDERED: cefTRIAXone\\ROCEPHIN 1 GM VIAL ONE (18:11)
--- NOTE | 2019-06-29 18:11 | RAD ---
Exam: Chest one view HISTORY:Cough. Fever. Tachycardia. Comparison: 12/14/2018, 12/19/2018 FINDINGS: Cardiac silhouette:Enlarged cardiac silhouette Incidentals: Sternotomy wires are noted Aorta: Atherosclerosis and elongation Pulmonary vessels: Normal Costophrenic angles: Clear LUNGS: Hyperinflation with chronic changes. No mass or consolidation. Pneumothorax: None Osseous abnormalities: None IMPRESSION: 1. COPD. Chronic lung parenchymal changes. 2. Atherosclerosis.
[2019-06-29 18:27] LABS: #Lymphocytes 0.7 thou/uL (1.20-3.40); #Monocytes 0.5 thou/uL (0.11-0.59); %Basophils 0.3 % (0.0-1.0); %Lymphocytes 10.9 % (21.0-51.0); %Monocytes 8.5 % (0.0-10.0); %Neutrophils 80.4 % (42.0-75.0); Hemoglobin 10.3 g/dL (12.0-16.0); Mean Corpuscular HGB CONC 32.2 g/dL (32.0-36.0); Mean Corpuscular Hemoglobin 30.8 pg (27.0-31.0); Mean Corpuscular Volume 95.7 fL (78.0-98.0); RBC Distribution Width 12.5 % (11.5-14.5); Red Blood Cell (RBC) Count 3.35 mill/uL (4.20-5.40); White Blood Cell (WBC) Count 6.2 thou/uL (4.8-10.8)
[2019-06-29] MEDS ORDERED: Azithromycin 500 MG VIAL ONE (18:46)
[2019-06-29 18:48] LABS: ALT (SGPT) 7 U/L (8-55); AST (SGOT) 7 U/L (5-34); Albumin 1.3 g/dL (3.4-4.8); Alkaline Phosphatase 50 U/L (40-110); Anion Gap 6 mmol/L (10-20); BUN (Urea Nitrogen) 31 mg/dL (9.8-20.1); Bilirubin, Total Less than 0.2 mg/dL (0.2-1.2); Calc. Creatinine Clearance 0 mL/min (70-130); Carbon Dioxide 11 mmol/L (23-31); Estimated GFR-MDRD 27; Globulin 1.8 g/dL (2.4-3.5); Glucose 117 mg/dL (83-110); Protein, Total 3.1 g/dL (6.0-8.3); Sodium 144 mmol/L (136-145)
[2019-06-29 18:59] LABS: MDiff Complete? YES; Mean Platelet Volume 10.1 fL (7.4-10.4); Ovalocytes SLIGHT = 2-5 cells (100X) (0-1/hpf); Platelet Count 95 thou/uL (130-400); Platelet Morphology Comment Appears Decreased; Polychromasia SLIGHT = 2-3 cells (100X) (0-2/hpf)
[2019-06-29 19:13] LABS: Calcium 4.2 mg/dL (7.8-10.44); Chloride 129 mmol/L (98-107); Potassium 2.3 mmol/L (3.5-5.1)
[2019-06-29] MEDS ORDERED: Calcium Gluc 4.6 MEQ/10 ML (100 MG/ML) ONE (19:22)
[2019-06-29] MEDS ORDERED: Potassium Chloride 20 MEQ TAB ONE (19:26)
[2019-06-29] MEDS ORDERED: Oseltamivir 75 MG CAP PO SCH (19:30)
[2019-06-29 20:24] LABS: Troponin I 0.034 ng/mL (< 0.028)
[2019-06-29] MEDS ORDERED: Ondansetron ODT 4 MG TAB SL PRN (22:04)
[2019-06-29] MEDS ORDERED: Ondansetron PF 4 MG/2 ML Vial IVP PRN (22:04)
[2019-06-29 23:04] VITALS: BMI 39.5
[2019-06-29] MEDS ORDERED: HumaLOG 300 UNITS/3 ML VIAL SC PRN ×2 (23:50)
[2019-06-29] MEDS ORDERED: Dextrose 50% Abboject 50 ML SYRINGE SLOW IVP PRN (23:50)
[2019-06-29] MEDS ORDERED: Dextrose 5% in Water 1,000 ML IV PRN (23:50)
[2019-06-30 00:08] LABS: Troponin I 0.083 ng/mL (< 0.028)
[2019-06-30] MEDS: guaiFENesin 200 MG TAB PO PRN ×2 (00:09→05:51)
[2019-06-30 03:36] LABS: Troponin I 0.092 ng/mL (< 0.028)
[2019-06-30 08:04] LABS: #Basophils 0.1 thou/uL (0.0-0.2); #Lymphocytes 1.8 thou/uL (1.20-3.40); #Neutrophils 10.1 thou/uL (1.40-6.50); %Basophils 0.4 % (0.0-1.0); %Eosinophils 0.2 % (0.0-10.0); %Lymphocytes 13.5 % (21.0-51.0); %Monocytes 7.7 % (0.0-10.0); %Neutrophils 78.2 % (42.0-75.0); Hemoglobin 10.7 g/dL (12.0-16.0); Mean Corpuscular HGB CONC 32.2 g/dL (32.0-36.0); Mean Corpuscular Hemoglobin 31.3 pg (27.0-31.0); Mean Corpuscular Volume 97.4 fL (78.0-98.0); Mean Platelet Volume 9.9 fL (7.4-10.4); Platelet Count 175 thou/uL (130-400); RBC Distribution Width 12.7 % (11.5-14.5); Red Blood Cell (RBC) Count 3.42 mill/uL (4.20-5.40); White Blood Cell (WBC) Count 12.9 thou/uL (4.8-10.8)
[2019-06-30 08:37] LABS: Albumin 2.5 g/dL (3.4-4.8); Anion Gap 14 mmol/L (10-20); BUN (Urea Nitrogen) 49 mg/dL (9.8-20.1); BUN/Creatinine Ratio 12.93; Calc. Creatinine Clearance 23 mL/min (70-130); Calcium 8.1 mg/dL (7.8-10.44); Carbon Dioxide 15 mmol/L (23-31); Chloride 116 mmol/L (98-107); Estimated GFR-MDRD 12; Glucose 167 mg/dL (83-110); Phosphorus 4.3 mg/dL (2.3-4.7); Sodium 140 mmol/L (136-145)
[2019-06-30] MEDS ORDERED: Oseltamivir 75 MG CAP PO SCH (09:00)
[2019-06-30] MEDS ORDERED: Dextrose 50% Abboject 50 ML SYRINGE SLOW IVP PRN (09:38)
[2019-06-30] MEDS ORDERED: Dextrose 5% in Water 1,000 ML IV PRN (09:38)
[2019-06-30] MEDS ORDERED: Senokot S 8.6-50 MG TAB PO PRN (09:38)
[2019-06-30] MEDS ORDERED: Ondansetron PF 4 MG/2 ML Vial IVP PRN (09:38)
[2019-06-30] MEDS ORDERED: Nitroglycerin 0.4 MG TAB (25 Tab Bottle) SL PRN (09:38)
[2019-06-30] MEDS ORDERED: Guaifenesin DM 100-10/5 ML UDCUP PO PRN (09:38)
[2019-06-30] MEDS: Albumin 25% 25 GM/100 ML BOT IVPB SCH ×3 (11:14→21:19)
[2019-06-30] MEDS ORDERED: NIFEdipine XL 30 MG TAB PO SCH (11:15)
[2019-06-30] MEDS ORDERED: cloNIDine 0.1 MG TAB PO SCH (11:15)
[2019-06-30] MEDS ORDERED: Aspirin Chewable 81 MG TAB PO SCH (11:15)
[2019-06-30] MEDS ORDERED: Apixaban 2.5 MG TAB PO SCH (11:15)
[2019-06-30] MEDS ORDERED: Carvedilol 3.125 MG TAB PO SCH (11:15)
--- NOTE | 2019-06-30 11:54 | CON ---
DATE OF CONSULTATION: HISTORY OF PRESENT ILLNESS: Ms. Lehman is a 74-year-old white female with known history of chronic renal failure from her diabetic nephropathy and admitted due to cough and fever. She was also noted to be tachycardic. We are now being consulted for acute kidney injury on top of her chronic renal failure. REVIEW OF SYSTEMS: Positive for a cough and fever. No shortness of breath. No chest pain. Positive for palpitation. No dysuria. No urinary frequency. No productive cough. No fever or chills. No syncopal episode. No diarrhea. Appetite and energy level are decreased. MEDICATIONS: The patient is currently on: 1. Humalog sliding scale. 2. Tamiflu 75 mg p.o. b.i.d. 3. Zofran p.r.n. PAST MEDICAL HISTORY: Chronic renal failure from diabetic nephropathy, type 2 diabetes mellitus, coronary artery disease, DJD, benign right renal tumor, hyperlipidemia, morbid obesity, status post CHF, left breast cancer in remission, gout, uterine cancer in remission, history of left axillary cytoma in remission, COPD, and cervical cancer in remission. PAST SURGICAL HISTORY: Status post colonoscopy, status post right nephrectomy, status post cardiac cath, status post CABG, status post back surgery, status post hysterectomy with accidental laceration on the right ureter, status post mastectomy, status post left breast biopsy, and status post left axillary lymph node biopsy. SOCIAL HISTORY: The patient currently lives in [place]. She is , one child and lives with her son. Smoked for 40 years, 1-1/2 packs a day, currently not smoking. No IV drug abuse. Education, 11th grade. Retired [employer] employee. Status post blood transfusion. ALLERGIES: NONE. ADVERSE REACTION TO MORPHINE AND CODEINE. IMMUNIZATIONS: Up-to-date. TRAUMA: None. HOSPITALIZATIONS: Please see past medical history. FAMILY HISTORY: No family history of ESRD. PHYSICAL EXAMINATION: VITAL SIGNS: Blood pressure of 185/84 with a heart rate of 89, respiratory rate of 16, temperature of 99.3, and pulse ox of 93%. GENERAL: She is awake, sitting comfortable, not in overt distress. SKIN: Adequate turgor. HEENT: Pinkish conjunctivae. Anicteric sclerae. NECK: No neck mass. No carotid bruits. No JVD. CHEST: No deformities. LUNGS: Decreased breath sounds. Occasional wheezing. HEART: Normal sinus rhythm. No murmur. No gallops. No rubs. ABDOMEN: Globular, soft, and nontender. No masses. EXTREMITIES: No edema. No deformities. LABORATORY DATA: Laboratories of June 30, 2019, was reviewed. Initial creatinine was noted at 3.79. Chest x-ray - COPD. No infiltrates. No CHF. June 30, 2019, white count was 12.9 and hemoglobin was 10.7. Potassium was 5, BUN was 49, creatinine was 3.79, and albumin was 2.5. Urinalysis showed bacteria was few, rbc's 7 to 10, and wbc greater than 50. CURRENT MEDICATIONS: Medications of June 30, 2019 showed the following; 1. Apixaban 2.5 mg p.o. b.i.d. 2. Aspirin 81 mg tablet once a day. 3. Atorvastatin 80 mg tablet at bedtime. 4. Carvedilol 3.125 mg p.o. b.i.d. 5. Ceftriaxone 1 g IV q.24 hours. 6. Zetia 10 mg at bedtime. 7. Humalog sliding scale. 8. Methylprednisolone 20 mg IV q.8. 9. Tamiflu 75 mg p.o. b.i.d. ASSESSMENT AND PLAN: 1. Acute kidney injury/chronic renal failure - I suspect as superimposed prerenal azotemia as suggested by the history of decreased p.o. intake, fever. Agree with current management. Hold off diuretics. Albumin 25 g IV q.6 hours. There is no indication for any emergent hemodialysis. If renal function remains unimproved, consider the possibility of progressive renal dysfunction. I have not ruled out in starting her normal saline in a.m. For the moment, agree with current management. 2. Fever/chronic obstructive pulmonary disease - superimposed flu infection. Continue supportive care. 3. Urinary tract infection on empiric IV antibiotics. The patient is noted to be on ceftriaxone. Overall agree with current management. Job ID: [id number]
[2019-06-30] MEDS: methylPREDNISolone Sod Succ 40 MG VIAL IVP SCH ×2 (14:44→21:22)
[2019-06-30] MEDS ORDERED: Carvedilol 6.25 MG TAB PO SCH (17:00)
[2019-06-30] MEDS: Carvedilol 3.125 MG TAB PO SCH (17:03)
[2019-06-30 17:32] LABS: Bilirubin Negative (Negative); Blood, Urine 1+ (Negative); Clarity Clear (Clear); Glucose, Urine (Dipstick) 500 mg/dL (Negative); Leukocyte Negative Leu/uL (Negative); Nitrite Negative (Negative); Protein, Urine (Dipstick) 600 mg/dL (Neg-Trace); RBC/HPF 0-3 HPF (0-3); Squamous Epithelial 0-3 HPF (0-3); Urobilinogen Normal mg/dL (Less than 2)
[2019-06-30 17:42] LABS: Bacteria/HPF Rare-Few HPF (None Seen)
--- NOTE | 2019-06-30 17:55 | HP ---
REASON FOR ADMISSION: Influenza infection, sepsis, COPD exacerbation, hypocalcemia, hypokalemia, acute kidney injury. HISTORY OF PRESENTING ILLNESS: The patient gives history of having fever of up to 103 along with coughing yellow sputum from last 3 days. She has generalized weakness, aches, and pains. She vomited nearly 5 times. She also developed chest discomfort due to coughing spells. She had gone to Urgent Care and has tested positive for flu. She also mentions that her grandkids were sick with flu, which she might have gotten. She has known history of COPD, but uses oxygen on a p.r.n. basis. She tried multiple nebulizations at home, which did not really help much. Finally, she made it to emergency room here. PAST MEDICAL AND SURGICAL HISTORY: History of chronic atrial fibrillation; history of CHF with diastolic dysfunction; COPD; hypertension; dyslipidemia; diabetes mellitus, type 2, on insulin; history of breast cancer, left side with mastectomy; history of nephrectomy on the right; chronic kidney disease, stage 3; history of back surgery; CABG for 3-vessel disease; and hysterectomy. CURRENT MEDICATIONS: The patient is on: 1. Aspirin 81 mg p.o. daily. 2. Lipitor 80 mg p.o. daily. 3. Coreg 3.125 mg p.o. twice daily. 4. Clonidine 0.1 mg p.o. twice daily. 5. Lantus 50 units subcutaneously at bedtime. 6. Humalog 3 times daily with meals, sliding scale. 7. Eliquis 2.5 mg p.o. twice daily. 8. Zetia 10 mg p.o. daily. 9. Lasix 20 mg daily. 10. Imdur 60 mg p.o. at bedtime. 11. Procardia XL 30 mg p.o. daily. ALLERGIES: 1. CODEINE. 2. MORPHINE. PERSONAL HISTORY: Quit smoking more than 50 years ago; prior to which, she has smoked 1 to 2 packs a day for nearly 15 years or so. Does not abuse alcohol or drugs. FAMILY HISTORY: Mother at the age of 96 years. She has had history of coronary artery disease. Father in his 50s. He had massive DC. CODE STATUS: Full. POWER OF EQUIPMENT OPERATOR WAREHOUSE: Her son, Mr. Hardy. REVIEW OF SYSTEMS: CONSTITUTIONAL: Negative for weight loss or gain, ability to conduct usual activities. SKIN: Negative for rash, itching. EYES: Negative for double vision, pain. ENT/MOUTH: Negative for nose bleeding, neck stiffness, pain, tenderness. CARDIOVASCULAR: Negative for palpitations, dyspnea on exertion, orthopnea. RESPIRATORY: Negative for shortness of breath, wheezing, cough, hemoptysis, fever or night sweats. GASTROINTESTINAL: Negative for poor appetite, abdominal pain, heartburn, nausea , vomiting, constipation, or diarrhea. GENITOURINARY: Negative for urgency, frequency, dysuria, nocturia. MUSCULOSKELETAL: Negative for pain, swelling. NEUROLOGIC/PSYCHIATRIC: Negative for anxiety, depression. ALLERGY/IMMUNOLOGIC: Negative for skin rash, bleeding tendency. PHYSICAL EXAMINATION: GENERAL: The patient is a 74-year-old female, who is currently not in any acute distress. VITAL SIGNS: Blood pressure 150/74, pulse 100 per minute, respiratory rate 25 per minute, temperature 99.5 degrees Fahrenheit, saturating 96% on 1 L oxygen. NECK: Supple. No elevated JVD. HEENT: Eyes; extraocular muscles are intact. Pupils are reacting to light. Oral cavity; mucous membranes are dry. No exudates or congestion. CARDIOVASCULAR: S1 and S2 heard. Irregular rhythm. RESPIRATORY: Air entry 1+ bilateral. Scattered wheezes plus bilateral. ABDOMEN: Soft. Bowel sounds heard. No tenderness, rigidity, or guarding. EXTREMITIES: Mild peripheral edema. No calf tenderness. VASCULAR: Peripheral pulses 1+ bilateral. No ischemic ulcerations or gangrene. CENTRAL NERVOUS SYSTEM: No gross focal deficits noted. The patient is alert, awake, and oriented well. PSYCHIATRIC: The patient's mood is euthymic. No hallucinations or delusions. LABORATORY DATA: Chest x-ray done shows there are changes of COPD with chronic lung parenchymal changes with signs of atherosclerosis seen. White count of 6, H and H 10 and 32, platelet count 95 with 80% neutrophils. BUN 49, creatinine 3.7, serum bicarb 15. Had a potassium of 2.3 on admission. Calcium of 4.2. Albumin is 1.3. Troponin I of 0.03. EKG done shows atrial fibrillation at 90 beats per minute. There is chronic RBBB seen. CLINICAL IMPRESSION AND PLAN: The patient will be admitted to medical floor for influenza infection with sepsis and chronic obstructive pulmonary disease exacerbation. She has multiple electrolyte abnormalities including hypokalemia and hypocalcemia with acute kidney injury. These electrolytes will be replaced. We will place her on Tamiflu 75 mg daily based on creatinine clearance. She will also be on ceftriaxone 1 g daily. We will gently hydrate her with half normal saline at 70 mL/hour. DuoNeb q.6 hourly along with short course of steroids, which will be rapidly tapered. We will continue her home dose of aspirin, Lipitor, Eliquis, clonidine, and Zetia. Lantus will be switched to 25 units subcutaneously twice daily. Imdur 60 mg daily. Procardia XL 30 mg daily as before. We will consult Dr. Nevarez for Nephrology and Dr. Shepard, her manufacturing team member for Pulmonology. We will continue to closely monitor her on medical floor. Job ID: [id number] [facility]
[2019-06-30] MEDS: cefTRIAXone\\ROCEPHIN 1 GM in Sodium Chloride 0.9% 100 ML IVPB SCH (19:01)
[2019-06-30] MEDS ORDERED: Insulin Glargine 25 UNITS in Pre-Filled Syringe 1 EACH SC SCH (21:00)
[2019-06-30] MEDS: Atorvastatin Calcium 40 MG TAB PO SCH (21:19)
[2019-06-30] MEDS: Apixaban 2.5 MG TAB PO SCH (21:20)
[2019-06-30] MEDS: Ezetimibe 10 MG TAB PO SCH (21:20)
[2019-06-30] MEDS: cloNIDine 0.1 MG TAB PO SCH (21:20)
[2019-06-30] MEDS: HumaLOG 300 UNITS/3 ML VIAL SC PRN (21:21)
--- NOTE | 2019-06-30 23:20 | CON ---
DATE OF CONSULTATION: HISTORY OF PRESENT ILLNESS: Ms. Lehman is a very pleasant patient I follow with COPD. She presented with a flu. She has been found to have a rise in her creatinine. She says her flu symptoms are improving. She is not as achy. She is not vomiting. She says her cough is better. PAST MEDICAL HISTORY: Remarkable for; 1. COPD. 2. Atrial fibrillation. 3. Diastolic dysfunction. 4. Diabetes. 5. History of breast cancer. 6. History of nephrectomy. 7. History of back surgery. 8. History of coronary artery bypass grafting in the past. 9. Status post hysterectomy. MEDICATIONS: Have been reviewed. ALLERGIES: SHE REPORTS ALLERGIES TO MORPHINE AND CODEINE. SOCIAL HISTORY: She is only a brief smoker, two packs a day for 15 years. She has not smoked in 50 years. She does not drink. REVIEW OF SYSTEMS: Otherwise negative. I have always felt she had asthma, not chronic obstructive pulmonary disease. She does have sleep apnea, but she does not tolerate CPAP. PHYSICAL EXAMINATION: GENERAL: She is in no distress. She is resting comfortably in bed. VITAL SIGNS: She is afebrile. Heart rates in the 70s, respiratory rates in the teens, oximetry is 92% to 93% on room air, blood pressure is 152/75. HEAD AND NECK: Unremarkable. LUNGS: Remarkable for faint end-expiratory wheezes. HEART: Regular rhythm. S1 and S2 are normal. ABDOMEN: Soft and nontender. EXTREMITIES: Without clubbing, cyanosis, or edema. IMAGING: Chest x-ray is remarkable only for mild hyperinflation. LABORATORY DATA: White count 12.9, hemoglobin 10.7, platelets 175. Electrolytes are remarkable for sodium 140, potassium 5, chloride 116, bicarb 15, anion gap is 9, BUN 49, and creatinine is 3.79, it was 1.82 yesterday. Intake and output were not kept. IMPRESSION: Acute on chronic kidney disease. We have intake and output and daily weights that are accurate. From an asthma standpoint, I think she is doing reasonably well. Her renal function will be the determining factor for when she is discharged. Job ID: [id number]
[2019-07-01] MEDS: HumaLOG 300 UNITS/3 ML VIAL SC PRN ×5 (04:50→20:58)
[2019-07-01] MEDS: methylPREDNISolone Sod Succ 40 MG VIAL IVP SCH ×3 (04:53→22:16)
[2019-07-01] MEDS: Albumin 25% 25 GM/100 ML BOT IVPB SCH (04:54)
[2019-07-01] MEDS ORDERED: Insulin Glargine 25 UNITS in Pre-Filled Syringe 1 EACH SC SCH ×2 (05:00→21:00)
[2019-07-01 05:59] LABS: #Lymphocytes 0.8 thou/uL (1.20-3.40); #Monocytes 0.1 thou/uL (0.11-0.59); #Neutrophils 7.6 thou/uL (1.40-6.50); %Basophils 0.1 % (0.0-1.0); %Eosinophils 0.1 % (0.0-10.0); %Lymphocytes 9.7 % (21.0-51.0); %Monocytes 1.5 % (0.0-10.0); %Neutrophils 88.6 % (42.0-75.0); Hemoglobin 8.9 g/dL (12.0-16.0); Mean Corpuscular HGB CONC 33.2 g/dL (32.0-36.0); Mean Corpuscular Hemoglobin 32.1 pg (27.0-31.0); Mean Corpuscular Volume 96.6 fL (78.0-98.0); Mean Platelet Volume 10.4 fL (7.4-10.4); Platelet Count 156 thou/uL (130-400); RBC Distribution Width 12.4 % (11.5-14.5); Red Blood Cell (RBC) Count 2.78 mill/uL (4.20-5.40); White Blood Cell (WBC) Count 8.5 thou/uL (4.8-10.8)
[2019-07-01 06:20] LABS: Anion Gap 15 mmol/L (10-20); BUN (Urea Nitrogen) 63 mg/dL (9.8-20.1); Calc. Creatinine Clearance 19 mL/min (70-130); Carbon Dioxide 15 mmol/L (23-31); Chloride 108 mmol/L (98-107); Estimated GFR-MDRD 10; Glucose 443 mg/dL (83-110); Potassium 5.4 mmol/L (3.5-5.1); Sodium 133 mmol/L (136-145)
[2019-07-01] MEDS ORDERED: Non-Formulary Item 1 EACH (Atorvastatin Calcium [Lipitor] 80 MG) PO SCH (09:00)
[2019-07-01] MEDS: NIFEdipine XL 30 MG TAB PO SCH (09:14)
[2019-07-01] MEDS: cloNIDine 0.1 MG TAB PO SCH ×2 (09:15→20:50)
[2019-07-01] MEDS: Apixaban 2.5 MG TAB PO SCH ×2 (09:16→20:50)
[2019-07-01] MEDS: Oseltamivir 75 MG CAP PO SCH (09:16)
[2019-07-01] MEDS: Carvedilol 3.125 MG TAB PO SCH ×2 (09:17→17:22)
[2019-07-01] MEDS: Aspirin Chewable 81 MG TAB PO SCH (09:17)
[2019-07-01] MEDS: Insulin Glargine 35 UNITS in Pre-Filled Syringe 1 EACH SC SCH ×2 (09:30→20:51)
[2019-07-01] MEDS ORDERED: Insulin Glargine 10 UNITS in Pre-Filled Syringe 1 EACH SC SCH (09:45)
[2019-07-01] MEDS ORDERED: Furosemide 100 MG/10 ML VIAL SLOW IVP SCH (10:00)
--- NOTE | 2019-07-01 10:04 | PRG ---
DATE OF SERVICE: 07/01/2019 SUBJECTIVE: Marielle Lehman is doing well. She says she feels better. She denies shortness of breath at rest OBJECTIVE: VITAL SIGNS: She is afebrile. Blood pressure 174/71, heart rate 73, oximetry is 94% on room air. LUNGS: Still remarkable for coarse wheezes. HEART: Regular rhythm. ABDOMEN: Soft. LABORATORY DATA: White count 8.5; hemoglobin 8.9, down from 10.7; and platelets 156,000. Sodium 133, potassium 5.4, chloride 108, bicarb 15, BUN 63, and creatinine 4.52. IMPRESSION: 1. Chronic obstructive pulmonary disease exacerbation after influenza. 2. Worsening renal function. Her potassium and her creatinine are creeping up. PLAN: Hopefully, her decline in renal function will plateau. She will continue with nebulizer treatments and steroids. Her COPD is stable, but slowly improving. Job ID: [id number]
--- NOTE | 2019-07-01 10:16 | PRG ---
DATE OF SERVICE: 07/01/2019 SUBJECTIVE: Ms. Lehman is a 74-year-old white female, who was seen by the Renal Service for her acute kidney injury on top of her chronic renal failure. We felt that there could be a component of prerenal azotemia with this patient. For that reason, we started her on albumin infusion. Diuretics were placed on hold. However, today the patient complaining of some mild shortness of breath. The chest x-ray showed no CHF, but did have history of diastolic dysfunction in the past. She feels that she is gaining more fluid. Please note, the renal function is also worsening. OBJECTIVE: VITAL SIGNS: Blood pressure is noted at 174/71, heart rate 73, respiratory rate 16, and O2 saturation 94% on room air. GENERAL: Awake, alert, and comfortable, not in distress. SKIN: Adequate turgor. HEENT: Pinkish conjunctivae. Anicteric sclerae. NECK: No neck mass. No carotid bruits. No JVD. CHEST: No deformities. LUNGS: Positive for harsh breath sounds and occasional wheezing. HEART: Normal sinus rhythm. No murmurs. No gallops. No rubs. ABDOMEN: Globular, soft, and nontender. No masses. EXTREMITIES: Positive for edema. MEDICATIONS: Medications of July 01, 2019, were reviewed. LABORATORY DATA: Laboratories of July 01, 2019; white count 8.5, hemoglobin 8.9. Sodium 133, potassium 5.4, chloride 108, carbon dioxide 15, BUN 63, creatinine 4.52, glucose 443, and calcium 8. ASSESSMENT AND PLAN: 1. Acute kidney injury/chronic renal failure, superimposed prerenal azotemia. However, renal function continues to further worsen. With these lung findings as well as weight gain, we will start Lasix 80 mg IV daily. I did tell the patient that she may need dialytic intervention. She would like to think about it. She will discuss it with her son. 2. Influenza-currently on Tamiflu. 3. Urinary tract infection, currently on IV antibiotics. 4. Anemia. We will start Epogen and ferrous sulfate. Job ID: [id number] [facility]
[2019-07-01] MEDS: EPOETIN ALFA-EPBX (ESRD) 4,000 UNIT/ML VIAL SC SCH (14:13)
--- NOTE | 2019-07-01 15:18 | PDOC.HOSPP ---
- Subjective Encounter Date: 07/01/19 Encounter Time: 10:00 Subjective: is sitting in chair, breathing better has not ambulated much is eating well - Objective Vital Signs & Weight: Vital Signs (12 hours) Temp Pulse Resp BP BP Pulse Ox 07/01/19 13:08 79 16 95 07/01/19 10:59 97.4 F L 71 18 161/73 H 95 07/01/19 09:15 174/71 H 07/01/19 09:14 73 174/71 H 07/01/19 08:00 92 L 07/01/19 07:38 73 16 94 L 07/01/19 04:04 97.3 F L 80 18 158/69 H 92 L Weight Weight 245 lb 3.2 oz I&O: 06/30/19 07/01/19 07/02/19 06:59 06:59 06:59 Intake Total 720 Output Total 350 Balance 370 Result Diagrams: 07/01/19 05:24 07/01/19 05:24 Additional Labs: Accuchecks 07/01/19 07/01/19 07/01/19 11:06 06:33 04:14 POC Glucose 508 H 445 H Greater than 550 H* 06/30/19 06/30/19 20:12 17:01 POC Glucose 336 H 169 H Hospitalist ROS - Medication Medications: Active Medications Generic Name Dose Route Start Last Admin Trade Name Freq PRN Reason Stop Dose Admin Albuterol/Ipratropium 3 ml 06/30/19 13:00 07/01/19 13:08 Duoneb NEB 3 ml [id number] REJI Administration Apixaban 2.5 mg 06/30/19 21:00 07/01/19 09:16 Eliquis PO 2.5 mg BID REJI Administration Aspirin 81 mg 07/01/19 09:00 07/01/19 09:17 Aspirin Chewable PO 81 mg DAILY REJI Administration Atorvastatin Calcium 80 mg 06/30/19 21:00 06/30/19 21:19 Lipitor PO 80 mg HS REJI Administration Carvedilol 3.125 mg 06/30/19 17:00 07/01/19 09:17 Coreg PO 3.125 mg BID-WM REJI Administration Clonidine 0.1 mg 06/30/19 21:00 07/01/19 09:15 Catapres PO 0.1 mg BID REJI Administration Ezetimibe 10 mg 06/30/19 21:00 06/30/19 21:20 Zetia PO 10 mg 2100 REJI Administration Epoetin Lee-epbx 7,500 unit 07/01/19 10:00 07/01/19 14:13 Retacrit SC 7,500 unit Q7D REJI Administration Guaifenesin 200 mg 06/29/19 23:51 06/30/19 05:51 Organ-I Nr PO 200 mg Q4H PRN Administration Congestion Ceftriaxone Sodium 1 gm/ 100 mls @ 200 mls/hr 06/30/19 18:00 06/30/19 19:01 Sodium Chloride IVPB 100 mls Q24HR REJI Administration Insulin Glargine 35 units/ 0.35 mls @ 0 mls/hr 07/01/19 09:00 07/01/19 09:30 Miscellaneous Medication SC Not Given BID RJEI Insulin Human Lispro 0 units 06/30/19 09:38 07/01/19 11:07 Humalog SC 13 unit .AGGRESSIVE SLIDING PRN Administration Aggressive Correctional Scale Insulin Human Lispro 0 units 06/30/19 09:38 06/30/19 21:21 Humalog SC 4 unit .BEDTIME SLIDING SC PRN Administration Bedtime Correctional Scale Isosorbide Mononitrate 60 mg 06/30/19 21:00 06/30/19 21:19 Imdur PO 60 mg HS REJI Administration Methylprednisolone Sodium Succinate 20 mg 06/30/19 14:00 07/01/19 14:11 Solu-Medrol IVP 20 mg Q8HR REJI Administration Nifedipine 30 mg 07/01/19 09:00 07/01/19 09:14 Procardia Xl PO 30 mg DAILY REJI Administration Oseltamivir Phosphate 75 mg 07/01/19 09:00 07/01/19 09:16 Tamiflu PO 07/10/19 09:01 75 mg DAILY REJI Administration Sodium Chloride 10 ml 06/30/19 09:00 07/01/19 09:17 Flush - Normal Saline IVF 10 ml Q12HR REJI Administration - Exam General Appearance: NAD, awake alert Eye: PERRL, anicteric sclera ENT: no oropharyngeal lesions, moist mucosa Neck: supple, no JVD Heart: RRR, no murmur Respiratory: no wheezes, no rales, rhonchi Gastrointestinal: soft, non-tender, non-distended, normal bowel sounds Extremities: no cyanosis, 1+ LE edema Neurological: cranial nerve grossly intact, no focal deficits Psychiatric: normal affect, A&O x 3 Hosp A/P (1) Influenza Code(s): J11.1 - FLU DUE TO UNIDENTIFIED INFLUENZA VIRUS W OTH RESP MANIFEST Status: Acute (2) Sepsis Code(s): A41.9 - SEPSIS, UNSPECIFIED ORGANISM Status: Resolved Qualifiers: Sepsis acute organ dysfunction status: with acute organ dysfunction Severe sepsis acute organ dysfunction type: acute renal failure Acute renal failure type: unspecified Severe sepsis shock status: without septic shock (3) Acute worsening of stage 4 chronic kidney disease Code(s): N18.4 - CHRONIC KIDNEY DISEASE, STAGE 4 (SEVERE) Status: Acute (4) DM type 2 (diabetes mellitus, type 2) Status: Chronic Qualifiers: Diabetes mellitus snf insulin use: with terminal operations manager use Diabetes mellitus complication status: with kidney complications Diabetes mellitus complication detail: with chronic kidney disease Chronic kidney disease stage : stage 4 (severe) Qualified Code(s): E11.22 - Type 2 diabetes mellitus with diabetic chronic kidney disease; N18.4 - Chronic kidney disease, stage 4 (severe ); Z79.4 - termite exterminator helper (current) use of insulin (5) Dyslipidemia Code(s): E78.5 - HYPERLIPIDEMIA, UNSPECIFIED Status: Chronic (6) GERD (gastroesophageal reflux disease) Code(s): K21.9 - GASTRO-ESOPHAGEAL REFLUX DISEASE WITHOUT ESOPHAGITIS Status: Chronic Qualifiers: Esophagitis presence: esophagitis presence not specified Qualified Code(s) : K21.9 - Gastro-esophageal reflux disease without esophagitis (7) History of nephrectomy, unilateral Code(s): Z90.5 - ACQUIRED ABSENCE OF KIDNEY Status: Chronic (8) Hypertension Code(s): I10 - ESSENTIAL (PRIMARY) HYPERTENSION Status: Chronic Qualifiers: Hypertension type: essential hypertension Qualified Code(s): I10 - Essential (primary) hypertension (9) BRIANDA (obstructive sleep apnea) Code(s): G47.33 - OBSTRUCTIVE SLEEP APNEA (ADULT) (PEDIATRIC) Status: Chronic - Plan is on tamiflu, ceftriaxone got albumin infusions last evening renal function is worse this am has mild edema, rales in the infrascaular area d/w , might initiate on HD if patient agrees dm labile due to steroids, will switch to prednisone daily, increase lantus bid , start tapering lantus from am hemostable to mobilize as tolerated with PT and rolling walker
[2019-07-01] MEDS: Ferrous Sulfate 325 MG TAB PO SCH (17:22)
[2019-07-01] MEDS: cefTRIAXone\\ROCEPHIN 1 GM in Sodium Chloride 0.9% 100 ML IVPB SCH (18:34)
[2019-07-01] MEDS: Ezetimibe 10 MG TAB PO SCH (20:50)
[2019-07-01] MEDS: Atorvastatin Calcium 40 MG TAB PO SCH (20:50)
[2019-07-02] MEDS: methylPREDNISolone Sod Succ 40 MG VIAL IVP SCH ×2 (06:08→13:30)
[2019-07-02] MEDS: HumaLOG 300 UNITS/3 ML VIAL SC PRN ×4 (06:08→21:06)
[2019-07-02 06:10] LABS: Anion Gap 16 mmol/L (10-20); BUN (Urea Nitrogen) 78 mg/dL (9.8-20.1); Calc. Creatinine Clearance 19 mL/min (70-130); Calcium 8.2 mg/dL (7.8-10.44); Carbon Dioxide 17 mmol/L (23-31); Chloride 107 mmol/L (98-107); Estimated GFR-MDRD 9; Glucose 380 mg/dL (83-110); Potassium 5.7 mmol/L (3.5-5.1); Sodium 134 mmol/L (136-145)
[2019-07-02] MEDS: Aspirin Chewable 81 MG TAB PO SCH (08:25)
[2019-07-02] MEDS: Ferrous Sulfate 325 MG TAB PO SCH ×2 (08:26→16:43)
[2019-07-02] MEDS: cloNIDine 0.1 MG TAB PO SCH ×2 (08:26→21:02)
[2019-07-02] MEDS: NIFEdipine XL 30 MG TAB PO SCH (08:26)
[2019-07-02] MEDS: Carvedilol 3.125 MG TAB PO SCH ×2 (08:26→16:43)
[2019-07-02] MEDS: Apixaban 2.5 MG TAB PO SCH ×2 (08:27→21:06)
[2019-07-02] MEDS: Oseltamivir 75 MG CAP PO SCH (08:27)
[2019-07-02] MEDS: Insulin Glargine 35 UNITS in Pre-Filled Syringe 1 EACH SC SCH ×2 (08:27→21:02)
[2019-07-02] MEDS ORDERED: Furosemide 100 MG/10 ML VIAL SLOW IVP SCH (12:00)
--- NOTE | 2019-07-02 12:09 | PRG ---
DATE OF SERVICE: 07/02/2019 SERVICE: Renal Medicine. SUBJECTIVE: Ms. Lehman is a 74-year-old white female, followed up by the Renal Service for acute kidney injury on top of her chronic renal failure. We did diurese her yesterday. She was complaining of leg edema and abdominal fullness. She did receive IV Lasix IV Lasix at that time at 80 mg. Her renal function also has worsen, but today the creatinine is noted to be stable at 4.6 and yesterday this was 4.52. I did discuss with the patient about the possibility of her needing dialysis. My plan is to hold off the dialysis temporarily. We will try to observe for one more day. If there is no significant improvement, we may need to initiate dialysis. Lasix again will be given. No other complaints. Breathing is stable. Still complaining of abdominal fullness and leg edema. OBJECTIVE: VITAL SIGNS: Blood pressure is 116/52, heart rate 62, respiratory rate 20, temperature 97.6, and pulse ox 97%. GENERAL: Awake, alert, comfortable, sitting, not in distress. SKIN: Adequate turgor. HEENT: She has slightly pale conjunctivae. Anicteric sclerae. NECK: No neck mass. No carotid bruits. No JVD. CHEST: No deformities. LUNGS: Decreased breath sounds. No wheezing. No crackles. HEART: Normal sinus rhythm. No murmur. No gallops. No rubs. ABDOMEN: Globular, soft, and nontender. No masses. EXTREMITIES: Positive for edema. MEDICATIONS: Medications of July 02, 2019; were reviewed. LABORATORY DATA: Laboratories of July 01, 2019; white count 8.5, hemoglobin 8.9. On July 02, 2019; sodium 134, potassium 5.7, chloride 107, carbon dioxide 17, BUN 78, creatinine 4.6, GFR 9 mL/minute, glucose 380, and calcium 8.2. ASSESSMENT AND PLAN: 1. Acute kidney injury/chronic renal failure. Creatinine seems to be plateauing from 4.5 to 4.6. We will continue to observe. Holding off dialysis for the moment. Due to the generalized edema, we will give another dose of Lasix 80 mg IV x1 dose. My bias is to give an albumin infusion to help maintain her renal function as well to enhance the efficacy of this diuretics. 2. Anemia, currently on Epogen and iron supplementation. We will recheck basic metabolic panel and CBC in a.m. Job ID: [id number]
[2019-07-02] MEDS: Albumin 25% 25 GM/100 ML BOT IVPB SCH ×3 (12:22→23:48)
--- NOTE | 2019-07-02 16:16 | PRG ---
DATE OF SERVICE: 07/02/2019 SUBJECTIVE: The patient still feels lousy, had no new complaints. OBJECTIVE: VITAL SIGNS: Temperature 97.6, pulse 72, respirations 16, O2 saturation 94% on room air, blood pressure 163/52. HEENT: Unremarkable. NECK: No adenopathy or JVD. LUNGS: Crackles bilaterally. CARDIAC: S1, S2. Regular. ABDOMEN: Soft. EXTREMITIES: 4+ edema from her ankles downward. LABORATORY DATA: Sodium 134, potassium 5.7, chloride 107, CO2 of 17, BUN 78, creatinine 4.6, glucose 380. ASSESSMENT: 1. Acute on chronic renal failure with hyperkalemia. 2. Influenza. 3. Chronic obstructive pulmonary disease. PLAN: Main issue now is her kidneys given worsening function and development of hyperkalemia, she may be headed towards dialysis. She is continuing Tamiflu and ceftriaxone. Her breathing status seems to be stable at this time. Job ID: [id number]
[2019-07-02] MEDS: cefTRIAXone\\ROCEPHIN 1 GM in Sodium Chloride 0.9% 100 ML IVPB SCH (17:38)
--- NOTE | 2019-07-02 20:02 | PDOC.HOSPP ---
- Subjective Subjective: No acute complaints. - Objective Vital Signs & Weight: Vital Signs (12 hours) Temp Pulse Resp BP BP BP Pulse Ox 07/02/19 16:00 98.0 F 71 20 132/63 96 07/02/19 14:21 72 16 94 L 07/02/19 11:00 97.6 F 62 20 163/52 H 97 07/02/19 08:26 67 121/63 Weight Weight 245 lb 3.2 oz I&O: 07/01/19 07/02/19 07/03/19 06:59 06:59 06:59 Intake Total 720 1520 1300 Output Total 350 800 700 Balance 370 720 600 Result Diagrams: 07/01/19 05:24 07/02/19 05:14 Additional Labs: Accuchecks 07/02/19 07/02/19 07/02/19 16:09 11:32 04:32 POC Glucose 467 H 393 H 396 H 07/01/19 07/01/19 20:17 16:41 POC Glucose 371 H 458 H Hospitalist ROS - Review of Systems Constitutional: denies: fever, chills, sweats, weakness, malaise, other Eyes: denies: pain, vision change, conjunctivae inflammation, eyelid inflammation, redness, other ENT: denies: ear pain, ear discharge, nose pain, nose discharge, nose congestion , mouth pain, mouth swelling, throat pain, throat swelling, other Respiratory: denies: cough, dry, shortness of breath, hemoptysis, SOB with excertion, pleuritic pain, sputum, wheezing, other Cardiovascular: denies: chest pain, palpitations, orthopnea, paroxysmal noc. dyspnea, edema, light headedness, other Gastrointestinal: denies: nausea, vomiting, abdominal pain, diarrhea, constipation, melena, hematochezia, other Genitourinary: denies: dysuria, frequency, incontinence, hematuria, retention, other Musculoskeletal: denies: neck pain, shoulder pain, arm pain, back pain, hand pain, leg pain, foot pain, other Skin: denies: rash, lesions, ministerio, bruising, other Neurological: denies: weakness, numbness, incoordination, change in speech, confusion, seizures, other - Medication Medications: Active Medications Generic Name Dose Route Start Last Admin Trade Name Freq PRN Reason Stop Dose Admin Albumin Human 25 gm 07/02/19 11:54 07/02/19 17:38 Albumin 25% IVPB 07/03/19 05:55 25 gm Q6H REJI Administration Albuterol/Ipratropium 3 ml 06/30/19 13:00 07/02/19 14:21 Duoneb NEB 3 ml [id number] REJI Administration Apixaban 2.5 mg 06/30/19 21:00 07/02/19 08:27 Eliquis PO 2.5 mg BID REJI Administration Aspirin 81 mg 07/01/19 09:00 07/02/19 08:25 Aspirin Chewable PO 81 mg DAILY REJI Administration Atorvastatin Calcium 80 mg 06/30/19 21:00 07/01/19 20:50 Lipitor PO 80 mg HS REJI Administration Carvedilol 3.125 mg 06/30/19 17:00 07/02/19 16:43 Coreg PO 3.125 mg BID-WM REJI Administration Clonidine 0.1 mg 06/30/19 21:00 07/02/19 08:26 Catapres PO 0.1 mg BID REJI Administration Ezetimibe 10 mg 06/30/19 21:00 07/01/19 20:50 Zetia PO 10 mg 2100 REJI Administration Epoetin Lee-epbx 7,500 unit 07/01/19 10:00 07/01/19 14:13 Retacrit SC 7,500 unit Q7D REJI Administration Ferrous Sulfate 325 mg 07/01/19 17:00 07/02/19 16:43 Feosol PO 325 mg BID-WM REJI Administration Guaifenesin 200 mg 06/29/19 23:51 06/30/19 05:51 Organ-I Nr PO 200 mg Q4H PRN Administration Congestion Ceftriaxone Sodium 1 gm/ 100 mls @ 200 mls/hr 06/30/19 18:00 07/02/19 17:38 Sodium Chloride IVPB 100 mls Q24HR REJI Administration Insulin Glargine 35 units/ 0.35 mls @ 0 mls/hr 07/01/19 09:00 07/02/19 08:27 Miscellaneous Medication SC 0.35 mls BID REJI Administration Insulin Human Lispro 0 units 06/30/19 09:38 07/02/19 17:39 Humalog SC 13 unit .AGGRESSIVE SLIDING PRN Administration Aggressive Correctional Scale Insulin Human Lispro 0 units 06/30/19 09:38 07/01/19 20:58 Humalog SC 5 unit .BEDTIME SLIDING SC PRN Administration Bedtime Correctional Scale Isosorbide Mononitrate 60 mg 06/30/19 21:00 07/01/19 20:50 Imdur PO 60 mg HS REJI Administration Methylprednisolone Sodium Succinate 20 mg 06/30/19 14:00 07/02/19 13:30 Solu-Medrol IVP 20 mg Q8HR REJI Administration Nifedipine 30 mg 07/01/19 09:00 07/02/19 08:26 Procardia Xl PO 30 mg DAILY REJI Administration Oseltamivir Phosphate 75 mg 07/01/19 09:00 07/02/19 08:27 Tamiflu PO 07/10/19 09:01 75 mg DAILY REJI Administration Sodium Chloride 10 ml 06/30/19 09:00 07/02/19 08:29 Flush - Normal Saline IVF 10 ml Q12HR REJI Administration Sodium Chloride 10 ml 06/30/19 07:25 07/02/19 17:39 Flush - Normal Saline IVF 10 ml PRN PRN Administration Saline Flush - Exam General Appearance: NAD, awake alert Eye: PERRL, anicteric sclera ENT: normocephalic atraumatic, moist mucosa Neck: supple, symmetric, no JVD, no thyromegaly Heart: RRR, no murmur, no gallops, no rubs, normal peripheral pulses Respiratory: CTAB, no wheezes, no rales, no ronchi Gastrointestinal: soft, non-tender, non-distended, normal bowel sounds Extremities: no cyanosis, no clubbing, no edema Skin: no lesions, no rashes Neurological: cranial nerve grossly intact, no focal deficits Musculoskeletal: normal strength, no muscle wasting Psychiatric: normal affect, normal behavior Hosp A/P (1) Influenza Code(s): J11.1 - FLU DUE TO UNIDENTIFIED INFLUENZA VIRUS W OTH RESP MANIFEST Status: Acute Plan: Cont med mgt and nebs and isolation. Monitor for symp improvement. (2) Acute worsening of stage 4 chronic kidney disease Code(s): N18.4 - CHRONIC KIDNEY DISEASE, STAGE 4 (SEVERE) Status: Acute Plan: Being followed by Nephrology. May be a candidate for dialysis. Will f/u with renal recs. 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 Will increase insulin and taper steroids. Cover with SSI. (4) Diastolic CHF, acute on chronic Code(s): I50.33 - ACUTE ON CHRONIC DIASTOLIC (CONGESTIVE) HEART FAILURE Status : Acute Plan: Cont med mgt. (5) Acute hypoxemic respiratory failure Code(s): J96.01 - ACUTE RESPIRATORY FAILURE WITH HYPOXIA Status: Acute Plan: Cont O2 support as needed. (6) Hypertension Code(s): I10 - ESSENTIAL (PRIMARY) HYPERTENSION Status: Chronic Qualifiers: Hypertension type: essential hypertension Qualified Code(s): I10 - Essential (primary) hypertension Plan: Cont med mgt. Monitior BP. (7) GERD (gastroesophageal reflux disease) Code(s): K21.9 - GASTRO-ESOPHAGEAL REFLUX DISEASE WITHOUT ESOPHAGITIS Status: Chronic Qualifiers: Esophagitis presence: esophagitis presence not specified Qualified Code(s) : K21.9 - Gastro-esophageal reflux disease without esophagitis Plan: Cont PPI. (8) History of nephrectomy, unilateral Code(s): Z90.5 - ACQUIRED ABSENCE OF KIDNEY Status: Chronic Plan: Stable. - Plan PPx: SCDs. CODE: FULL. Dispo: Cont current mgt.
[2019-07-02] MEDS: Atorvastatin Calcium 40 MG TAB PO SCH (21:01)
[2019-07-02] MEDS: Ezetimibe 10 MG TAB PO SCH (21:02)
[2019-07-03] MEDS: Albumin 25% 25 GM/100 ML BOT IVPB SCH (06:04)
[2019-07-03] MEDS: HumaLOG 300 UNITS/3 ML VIAL SC PRN ×3 (06:14→16:35)
[2019-07-03 06:52] LABS: #Lymphocytes 1.3 thou/uL (1.20-3.40); #Monocytes 0.6 thou/uL (0.11-0.59); #Neutrophils 9.7 thou/uL (1.40-6.50); %Eosinophils 0.1 % (0.0-10.0); %Lymphocytes 11.1 % (21.0-51.0); %Neutrophils 83.8 % (42.0-75.0); Hemoglobin 9.3 g/dL (12.0-16.0); Mean Corpuscular HGB CONC 32.2 g/dL (32.0-36.0); Mean Corpuscular Hemoglobin 30.6 pg (27.0-31.0); Mean Corpuscular Volume 95.1 fL (78.0-98.0); Platelet Count 174 thou/uL (130-400); RBC Distribution Width 12.1 % (11.5-14.5); Red Blood Cell (RBC) Count 3.02 mill/uL (4.20-5.40); White Blood Cell (WBC) Count 11.5 thou/uL (4.8-10.8)
[2019-07-03 07:11] LABS: Anion Gap 19 mmol/L (10-20); BUN (Urea Nitrogen) 88 mg/dL (9.8-20.1); Calc. Creatinine Clearance 18 mL/min (70-130); Calcium 8.5 mg/dL (7.8-10.44); Carbon Dioxide 16 mmol/L (23-31); Chloride 105 mmol/L (98-107); Estimated GFR-MDRD 9; Glucose 321 mg/dL (83-110); Potassium 4.9 mmol/L (3.5-5.1); Sodium 135 mmol/L (136-145)
[2019-07-03] MEDS: Ferrous Sulfate 325 MG TAB PO SCH ×2 (08:11→17:29)
[2019-07-03] MEDS: Oseltamivir 75 MG CAP PO SCH (08:11)
[2019-07-03] MEDS: cloNIDine 0.1 MG TAB PO SCH ×2 (08:11→20:56)
[2019-07-03] MEDS: Carvedilol 3.125 MG TAB PO SCH ×2 (08:11→17:29)
[2019-07-03] MEDS: NIFEdipine XL 30 MG TAB PO SCH (08:11)
[2019-07-03] MEDS: predniSONE 20 MG TAB PO SCH (08:11)
[2019-07-03] MEDS: Apixaban 2.5 MG TAB PO SCH ×2 (08:11→20:57)
[2019-07-03] MEDS: Aspirin Chewable 81 MG TAB PO SCH (08:11)
[2019-07-03] MEDS: Insulin Glargine 35 UNITS in Pre-Filled Syringe 1 EACH SC SCH (08:12)
[2019-07-03] MEDS ORDERED: Insulin Glargine 50 UNITS in Pre-Filled Syringe 1 EACH SC SCH ×2 (09:40→09:45)
--- NOTE | 2019-07-03 13:53 | PRG ---
DATE OF SERVICE: 07/03/2019 SERVICE: Renal Medicine. SUBJECTIVE: Ms. Lehman is a 74-year-old white female with known history of chronic renal failure and we are following her up for acute kidney injury. She was initially admitted for a flu. She was also complaining of shortness of breath and abdominal fullness as well as leg edema. She was diuresed. At the same time, she was given albumin to protect her renal function. However, renal function continues to worsen. We did have a long discussion with this and she has agreed to proceed with dialysis. Her shortness of breath is a little better after the diuretics. OBJECTIVE: VITAL SIGNS: Blood pressure is noted at 146/68 with a heart rate of 84, respiratory rate 20, O2 saturation 95%. GENERAL: Noted to be awake, alert, comfortable, not in distress. SKIN: Adequate turgor. HEENT: She has a slightly pale conjunctivae. Anicteric sclerae. No neck mass. No carotid bruits. No JVD. CHEST: No deformities. LUNGS: Harsh breath sounds. HEART: Normal sinus rhythm. No murmurs. No gallops. No rubs. ABDOMEN: Globular, soft, nontender. No masses. EXTREMITIES: Positive for edema. No deformities. MEDICATIONS: Of July 03, 2019, reviewed. LABORATORY DATA: On July 03, 2019: White count 11.5, hemoglobin 9.3. ASSESSMENT AND PLAN: 1. Hyperkalemia, resolved. Potassium has improved with Lasix. 2. Acute kidney injury/chronic renal failure, progressive azotemia, worsening renal dysfunction. The patient still has generalized edema. We will proceed with dialysis. She has agreed to do it. We will consult Surgery for placement of a dialysis catheter. 3. Chronic anemia - Epogen has been initiated. 4. Shortness of breath, clinically improving. 5. Flu, on Tamiflu. Job ID: [id number]
--- NOTE | 2019-07-03 14:35 | PDOC.HOSPP ---
- Objective Vital Signs & Weight: Vital Signs (12 hours) Temp Pulse Resp BP BP BP Pulse Ox 07/03/19 14:07 73 16 96 07/03/19 12:45 84 20 148/68 H 95 07/03/19 08:11 144/65 H 07/03/19 08:10 94 L 07/03/19 08:02 61 16 97 07/03/19 08:00 98.0 F 54 L 20 144/65 H 94 L 07/03/19 05:29 97.4 F L 72 20 145/68 H 96 Weight Weight 245 lb 3.2 oz I&O: 07/02/19 07/03/19 07/04/19 06:59 06:59 06:59 Intake Total 1520 2100 Output Total 800 2450 Balance 720 -350 Result Diagrams: 07/03/19 06:36 07/03/19 06:36 Additional Labs: Accuchecks 07/03/19 07/03/19 07/02/19 11:19 06:01 19:48 POC Glucose 364 H 335 H 493 H 07/02/19 16:09 POC Glucose 467 H Hospitalist ROS - Medication Medications: Active Medications Generic Name Dose Route Start Last Admin Trade Name Freq PRN Reason Stop Dose Admin Albuterol/Ipratropium 3 ml 06/30/19 13:00 07/03/19 14:07 Duoneb NEB 3 ml [id number] REJI Administration Apixaban 2.5 mg 06/30/19 21:00 07/03/19 08:11 Eliquis PO 2.5 mg BID REJI Administration Aspirin 81 mg 07/01/19 09:00 07/03/19 08:11 Aspirin Chewable PO 81 mg DAILY REJI Administration Atorvastatin Calcium 80 mg 06/30/19 21:00 07/02/19 21:01 Lipitor PO 80 mg HS REJI Administration Carvedilol 3.125 mg 06/30/19 17:00 07/03/19 08:11 Coreg PO 3.125 mg BID-WM REJI Administration Clonidine 0.1 mg 06/30/19 21:00 07/03/19 08:11 Catapres PO 0.1 mg BID REJI Administration Ezetimibe 10 mg 06/30/19 21:00 07/02/19 21:02 Zetia PO 10 mg 2100 REJI Administration Epoetin Lee-epbx 7,500 unit 07/01/19 10:00 07/01/19 14:13 Retacrit SC 7,500 unit Q7D REJI Administration Ferrous Sulfate 325 mg 07/01/19 17:00 07/03/19 08:11 Feosol PO 325 mg BID-WM REJI Administration Guaifenesin 200 mg 06/29/19 23:51 06/30/19 05:51 Organ-I Nr PO 200 mg Q4H PRN Administration Congestion Ceftriaxone Sodium 1 gm/ 100 mls @ 200 mls/hr 06/30/19 18:00 07/02/19 17:38 Sodium Chloride IVPB 100 mls Q24HR REJI Administration Insulin Human Lispro 0 units 06/30/19 09:38 07/03/19 11:53 Humalog SC 13 unit .AGGRESSIVE SLIDING PRN Administration Aggressive Correctional Scale Insulin Human Lispro 0 units 06/30/19 09:38 07/01/19 20:58 Humalog SC 5 unit .BEDTIME SLIDING SC PRN Administration Bedtime Correctional Scale Isosorbide Mononitrate 60 mg 06/30/19 21:00 07/02/19 21:02 Imdur PO 60 mg HS REJI Administration Nifedipine 30 mg 07/01/19 09:00 07/03/19 08:11 Procardia Xl PO 30 mg DAILY REJI Administration Oseltamivir Phosphate 75 mg 07/01/19 09:00 07/03/19 08:11 Tamiflu PO 07/10/19 09:01 75 mg DAILY REJI Administration Prednisone 20 mg 07/03/19 09:00 07/03/19 08:11 Prednisone PO 07/05/19 12:00 20 mg DAILY REJI Administration Sodium Chloride 10 ml 06/30/19 09:00 07/03/19 08:02 Flush - Normal Saline IVF 10 ml Q12HR REJI Administration Sodium Chloride 10 ml 06/30/19 07:25 07/02/19 17:39 Flush - Normal Saline IVF 10 ml PRN PRN Administration Saline Flush Hosp A/P - Plan Hosp A/P (1) Influenza Code(s): J11.1 - FLU DUE TO UNIDENTIFIED INFLUENZA VIRUS W OTH RESP MANIFEST Status: Acute Plan: Cont med mgt and nebs and isolation. Monitor for symp improvement. (2) Acute worsening of stage 4 chronic kidney disease Code(s): N18.4 - CHRONIC KIDNEY DISEASE, STAGE 4 (SEVERE) Status: Acute Plan: Being followed by Nephrology. Pt has agreed for HD and so will have an HD access placed tmr. Will f/u with this. Will f/u with renal recs. 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 Have increased insulin and tapered steroids. Will cont to monitor BG. Cover with SSI. (4) Diastolic CHF, acute on chronic Code(s): I50.33 - ACUTE ON CHRONIC DIASTOLIC (CONGESTIVE) HEART FAILURE Status : Acute Plan: Cont med mgt. (5) Acute hypoxemic respiratory failure Code(s): J96.01 - ACUTE RESPIRATORY FAILURE WITH HYPOXIA Status: Acute Plan: Cont O2 support as needed. (6) Hypertension Code(s): I10 - ESSENTIAL (PRIMARY) HYPERTENSION Status: Chronic Qualifiers: Hypertension type: essential hypertension Qualified Code(s): I10 - Essential (primary) hypertension Plan: Cont med mgt. Monitior BP. (7) GERD (gastroesophageal reflux disease) Code(s): K21.9 - GASTRO-ESOPHAGEAL REFLUX DISEASE WITHOUT ESOPHAGITIS Status: Chronic Qualifiers: Esophagitis presence: esophagitis presence not specified Qualified Code(s) : K21.9 - Gastro-esophageal reflux disease without esophagitis Plan: Cont PPI. (8) History of nephrectomy, unilateral Code(s): Z90.5 - ACQUIRED ABSENCE OF KIDNEY Status: Chronic Plan: Stable. PPx: SCDs. CODE: FULL. Dispo: Cont current mgt.
--- NOTE | 2019-07-03 15:50 | PRG ---
DATE OF SERVICE: 07/03/2019 SUBJECTIVE: The patient is doing reasonably well. No acute complaints. Waiting for dialysis catheter placement tomorrow. OBJECTIVE: VITAL SIGNS: Temperature 97, pulse 72, respirations 16, O2 saturation 96% on room air, blood pressure 140/68. HEENT: Unremarkable. NECK: No adenopathy or JVD. LUNGS: Crackles at bases. CARDIAC: S1, S2. Regular. ABDOMEN: Soft. EXTREMITIES: No edema. ASSESSMENT: 1. Acute on chronic renal failure with pulmonary edema. 2. Influenza. 3. Chronic obstructive pulmonary disease. PLAN: Current care, no changes planned. Job ID: [id number]
[2019-07-03] MEDS: cefTRIAXone\\ROCEPHIN 1 GM in Sodium Chloride 0.9% 100 ML IVPB SCH (17:29)
[2019-07-03] MEDS: Atorvastatin Calcium 40 MG TAB PO SCH (20:56)
[2019-07-03] MEDS: Ezetimibe 10 MG TAB PO SCH (20:57)
[2019-07-03] MEDS: Insulin Glargine 50 UNITS in Pre-Filled Syringe 1 EACH SC SCH (20:57)
[2019-07-04] MEDS: Insulin Glargine 50 UNITS in Pre-Filled Syringe 1 EACH SC SCH (07:49)
[2019-07-04] MEDS: predniSONE 20 MG TAB PO SCH (07:50)
[2019-07-04] MEDS: Carvedilol 3.125 MG TAB PO SCH ×2 (07:50→17:24)
[2019-07-04] MEDS: NIFEdipine XL 30 MG TAB PO SCH (07:50)
[2019-07-04] MEDS: Oseltamivir 75 MG CAP PO SCH (07:50)
[2019-07-04] MEDS: Ferrous Sulfate 325 MG TAB PO SCH ×2 (07:53→17:24)
[2019-07-04] MEDS: cloNIDine 0.1 MG TAB PO SCH ×2 (07:53→21:04)
[2019-07-04] MEDS: Aspirin Chewable 81 MG TAB PO SCH (07:54)
--- NOTE | 2019-07-04 09:56 | ULT ---
Upper extremity venous mapping HISTORY: End-stage renal disease. Evaluate for dialysis access. History of prior left mastectomy. FINDINGS: Flow is demonstrated within the right internal jugular, subclavian, and axillary veins. There is norm al luminal compressibility involving the right internal jugular vein and axillary veins. There is echogenic material and noncompressibility involving the right upper extremity cephalic vein in the upper and mid arm suggesting occlusive thrombus. Right upper extremity basilic vein diameters: Upper arm-4.4 mm Mid arm-4.5 mm Lower arm-4.1 mm Antecubital fossa-4.4 mm Proximal forearm-3.1 mm Mid forearm-1.9 mm Distal forearm-1.3 mm The left upper extremity venous diameters were not performed due to patient's history of left mastect kike. Right upper extremity arterial diameters: Brachial artery-3.7 mm Radial artery-2.4 mm Ulnar artery 2.8 mm IMPRESSION: 1. Occlusive thrombus in the right upper extremity cephalic vein in the upper and mid arm. This is a superficial vein. 2. Venous diameters of the right upper extremity basilic vein are as described above.
[2019-07-04] MEDS: Insulin Regular 300 UNITS/3 ML VIAL SC SCH ×2 (11:55→17:24)
--- NOTE | 2019-07-04 15:16 | ULT ---
EXAM: Vein mapping for dialysis access HISTORY: End-stage renal disease. TECHNIQUE: Multiplanar grayscale and color Doppler images were obtained in a bilateral upper extremit y venous ultrasound. Spectral analysis of the Doppler waveforms of the vessels were performed. FINDINGS: The bilateral internal jugular veins and subclavian veins are patent without evidence of th rombus. Left brachial artery 4.3 mm Left radial artery 2.5 mm Left ulnar artery 2.3 mm LEFT CEPHALIC VEIN in millimeters 4.5 -- Shoulder 4.5 -- Upper arm 4.5 -- Mid upper arm 5.8 -- Just proximal to the elbow 4.1 -- Just distal to the elbow 1.7 -- Forearm 2.1 -- Wrist LEFT BASILIC VEIN in millimeters 4.3 -- Shoulder 3.2 -- Upper arm 3.7 -- Mid upper arm 4.0 -- Just proximal to the elbow 3.6 -- Just distal to the elbow 3.0 -- Forearm 2.5 -- Wrist IMPRESSION: Vein mapping for dialysis access as above
--- NOTE | 2019-07-04 15:22 | PDOC.HOSPP ---
- Subjective Subjective: No new clinical complaints. Pt has on anticoagulation and so cannot get her procedure done today. It has been rescheduled for Thursday. - Objective Vital Signs & Weight: Vital Signs (12 hours) Temp Pulse Resp BP BP BP Pulse Ox 07/04/19 12:07 77 16 95 07/04/19 08:00 94 L 07/04/19 07:54 98 07/04/19 07:53 58 L 16 143/64 H 98 07/04/19 07:50 63 143/64 H 07/04/19 07:27 97.1 F L 56 L 20 143/64 H 95 07/04/19 04:24 97.5 F L 63 16 130/64 95 Weight Weight 245 lb 3.2 oz I&O: 07/03/19 07/04/19 07/05/19 06:59 06:59 06:59 Intake Total 2100 1431 Output Total 2450 3100 Balance -350 -6855 Result Diagrams: 07/03/19 06:36 07/03/19 06:36 Additional Labs: Accuchecks 07/04/19 07/04/19 07/03/19 11:43 04:16 20:37 POC Glucose 241 H 315 H 338 H 07/03/19 16:18 POC Glucose 392 H Hospitalist ROS - Review of Systems Constitutional: denies: fever, chills, sweats, weakness, malaise, other Eyes: denies: pain, vision change, conjunctivae inflammation, eyelid inflammation, redness, other ENT: denies: ear pain, ear discharge, nose pain, nose discharge, nose congestion , mouth pain, mouth swelling, throat pain, throat swelling, other Respiratory: denies: cough, dry, shortness of breath, hemoptysis, SOB with excertion, pleuritic pain, sputum, wheezing, other Cardiovascular: denies: chest pain, palpitations, orthopnea, paroxysmal noc. dyspnea, edema, light headedness, other Gastrointestinal: denies: nausea, vomiting, abdominal pain, diarrhea, constipation, melena, hematochezia, other Genitourinary: denies: dysuria, frequency, incontinence, hematuria, retention, other Musculoskeletal: denies: neck pain, shoulder pain, arm pain, back pain, hand pain, leg pain, foot pain, other Skin: denies: rash, lesions, ministerio, bruising, other Neurological: denies: weakness, numbness, incoordination, change in speech, confusion, seizures, other - Medication Medications: Active Medications Generic Name Dose Route Start Last Admin Trade Name Luigiq PRN Reason Stop Dose Admin Albuterol/Ipratropium 3 ml 06/30/19 13:00 07/04/19 12:07 Duoneb NEB 3 ml [id number] REJI Administration Aspirin 81 mg 07/01/19 09:00 07/04/19 07:54 Aspirin Chewable PO Not Given DAILY REJI Atorvastatin Calcium 80 mg 06/30/19 21:00 07/03/19 20:56 Lipitor PO 80 mg HS REJI Administration Carvedilol 3.125 mg 06/30/19 17:00 07/04/19 07:50 Coreg PO 3.125 mg BID-WM [facility] Administration Clonidine 0.1 mg 06/30/19 21:00 07/04/19 07:53 Catapres PO 0.1 mg BID REJI Administration Ezetimibe 10 mg 06/30/19 21:00 07/03/19 20:57 Zetia PO 10 mg 2100 REJI Administration Epoetin Lee-epbx 7,500 unit 07/01/19 10:00 07/01/19 14:13 Retacrit SC 7,500 unit Q7D [facility] Administration Ferrous Sulfate 325 mg 07/01/19 17:00 07/04/19 07:53 Feosol PO 325 mg BID-WM REJI Administration Guaifenesin 200 mg 06/29/19 23:51 06/30/19 05:51 Organ-I Nr PO 200 mg Q4H PRN Administration Congestion Insulin Human Lispro 0 units 06/30/19 09:38 07/03/19 16:35 Humalog SC 13 unit .AGGRESSIVE SLIDING PRN Administration Aggressive Correctional Scale Insulin Human Lispro 0 units 06/30/19 09:38 07/01/19 20:58 Humalog SC 5 unit .BEDTIME SLIDING SC PRN Administration Bedtime Correctional Scale Insulin Human Regular 8 units 07/04/19 12:00 07/04/19 11:55 Humulin R SC 8 unit TID-WM REJI Administration Isosorbide Mononitrate 60 mg 06/30/19 21:00 07/03/19 20:56 Imdur PO 60 mg HS RJEI Administration Nifedipine 30 mg 07/01/19 09:00 07/04/19 07:50 Procardia Xl PO 30 mg DAILY REJI Administration Oseltamivir Phosphate 75 mg 07/01/19 09:00 07/04/19 07:50 Tamiflu PO 07/10/19 09:01 75 mg DAILY REJI Administration Prednisone 20 mg 07/03/19 09:00 07/04/19 07:50 Prednisone PO 07/05/19 12:00 20 mg DAILY REJI Administration Sodium Chloride 10 ml 06/30/19 09:00 07/04/19 07:54 Flush - Normal Saline IVF 10 ml Q12HR REJI Administration Sodium Chloride 10 ml 06/30/19 07:25 07/02/19 17:39 Flush - Normal Saline IVF 10 ml PRN PRN Administration Saline Flush - Exam General Appearance: NAD, awake alert Eye: PERRL, anicteric sclera ENT: normocephalic atraumatic, no oropharyngeal lesions, moist mucosa Neck: supple, symmetric, no JVD, no thyromegaly, no lymphadenopathy Heart: RRR, no murmur, no gallops, no rubs, normal peripheral pulses Respiratory: CTAB, no wheezes, no rales, no ronchi Gastrointestinal: soft, non-tender, non-distended, normal bowel sounds Extremities: no cyanosis, no clubbing, no edema Skin: no lesions, no rashes Neurological: cranial nerve grossly intact, no focal deficits Musculoskeletal: normal tone, normal strength, no muscle wasting Psychiatric: normal affect, normal behavior, A&O x 3 Hosp A/P - Plan Hosp A/P (1) Influenza Code(s): J11.1 - FLU DUE TO UNIDENTIFIED INFLUENZA VIRUS W OTH RESP MANIFEST Status: Acute Plan: Cont med mgt and nebs and isolation. Monitor for symp improvement. (2) Acute worsening of stage 4 chronic kidney disease Code(s): N18.4 - CHRONIC KIDNEY DISEASE, STAGE 4 (SEVERE) Status: Acute Plan: Being followed by Nephrology. Pt has agreed for HD and so will have an HD access placed on Thursday due to recent ise of anticoagulation. Will f/u with this. Will f/u with renal recs. (3) DM type 2 (diabetes mellitus, type 2) Status: Chronic Qualifiers: Diabetes mellitus fdc insulin use: with intermission coordinator use Diabetes mellitus complication status: with kidney complications Diabetes mellitus complication detail: with chronic kidney disease Chronic kidney disease stage : stage 4 (severe) Qualified Code(s): E11.22 - Type 2 diabetes mellitus with diabetic chronic kidney disease; N18.4 - Chronic kidney disease, stage 4 (severe ); Z79.4 - retirement (current) use of insulin Plan: Still uncontrolled due to steroids. Have increased insulin to 60 units BOD and tapered steroids. Bpt take 50 units daily at home. Will cont to monitor BG and decreased back to home dose as indicated. Cover with SSI. (4) Diastolic CHF, acute on chronic Code(s): I50.33 - ACUTE ON CHRONIC DIASTOLIC (CONGESTIVE) HEART FAILURE Status : Acute Plan: Cont med mgt. (5) Acute hypoxemic respiratory failure Code(s): J96.01 - ACUTE RESPIRATORY FAILURE WITH HYPOXIA Status: Acute Plan: Cont O2 support as needed. (6) Hypertension Code(s): I10 - ESSENTIAL (PRIMARY) HYPERTENSION Status: Chronic Qualifiers: Hypertension type: essential hypertension Qualified Code(s): I10 - Essential (primary) hypertension Plan: Cont med mgt. Monitior BP. (7) GERD (gastroesophageal reflux disease) Code(s): K21.9 - GASTRO-ESOPHAGEAL REFLUX DISEASE WITHOUT ESOPHAGITIS Status: Chronic Qualifiers: Esophagitis presence: esophagitis presence not specified Qualified Code(s) : K21.9 - Gastro-esophageal reflux disease without esophagitis Plan: Cont PPI. (8) History of nephrectomy, unilateral Code(s): Z90.5 - ACQUIRED ABSENCE OF KIDNEY Status: Chronic Plan: Stable. PPx: SCDs. CODE: FULL. Dispo: Cont current mgt.
--- NOTE | 2019-07-04 15:24 | PRG ---
DATE OF SERVICE: 07/04/2019 SUBJECTIVE: Ms. Lehman says she is feeling better. She still has faint wheezes. OBJECTIVE: VITAL SIGNS: Heart rate in the 50s, respiratory rates in the teens, oximetry is 94% on room air. She is tentatively on the schedule for dialysis access placement tomorrow. LABORATORY DATA: There is no lab today. IMPRESSION: 1. Asthmatic bronchitis. 2. Influenza. 3. Acute on chronic kidney disease. We will continue to follow. Job ID: [id number]
[2019-07-04] MEDS ORDERED: CEFAZOLIN 2 GM in Premix Bag 1 BAG IVPB SCH (17:45)
--- NOTE | 2019-07-04 18:52 | PRG ---
DATE OF SERVICE: 07/04/2019 SUBJECTIVE: Ms. Lehman is a 74-year-old white female, seen by the Renal Service for her acute kidney injury on top of her chronic renal failure. She has progressive azotemia with volume retention. The plan is to proceed with dialysis. Placement of dialysis catheter is on hold due to her anticoagulation medication, it is currently on hold. She has been rescheduled this coming Thursday. She is breathing a little better. She has been diuresed in the last few days. Abdominal fullness has decreased. Denies any worsening shortness of breath. OBJECTIVE: VITAL SIGNS: Blood pressure is noted at 143/64, heart rate 58, respiratory rate 16, O2 saturations 98% on room air. GENERAL: Awake, alert, comfortable, not in distress. SKIN: Adequate turgor. HEENT: Pinkish conjunctivae. Anicteric sclerae. No neck mass. No carotid bruits. No JVD. CHEST: No deformities. LUNGS: Clear breath sounds. HEART: Normal sinus rhythm. No murmur. No gallops. No rubs. ABDOMEN: Globular, soft, nontender. No masses. EXTREMITIES: Positive for edema. No deformities. MEDICATIONS: Of July 04, 2019, were reviewed. LABORATORY DATA: Laboratories of July 03, 2019; white count 11.5, hemoglobin 9.3. On July 03, 2019; sodium 135, potassium 4.9, chloride 105, carbon dioxide 16, BUN 88, creatinine 4.83, calcium 8.5. ASSESSMENT AND PLAN: 1. Chronic renal failure from hypertensive nephropathy, worsening renal dysfunction. We will initiate dialysis once the patient's dialysis catheter has been placed. 2. Volume overload - has been on p.r.n. Lasix. Clinically improved. We will hold off diuretics for the moment. 3. Anemia. The patient has been started on iron supplementation as well as weekly Epogen. 4. Shortness of breath, multifactorial etiology, chronic obstructive pulmonary disease exacerbation as well as mild congestive heart failure remains. 5. Recheck basic metabolics and CBC in a.m. Job ID: [id number]
[2019-07-04] MEDS: Ezetimibe 10 MG TAB PO SCH (21:04)
[2019-07-04] MEDS: Cefuroxime Axetil 250 MG TAB PO SCH (21:04)
[2019-07-04] MEDS: Atorvastatin Calcium 40 MG TAB PO SCH (21:04)
[2019-07-04] MEDS: HumaLOG 300 UNITS/3 ML VIAL SC PRN (21:04)
[2019-07-04] MEDS: Insulin Glargine 60 UNITS in Pre-Filled Syringe 1 EACH SC SCH (21:04)
--- NOTE | 2019-07-04 21:52 | CON ---
DATE OF CONSULTATION: HISTORY OF PRESENT ILLNESS: Marielle Lehman is a 74-year-old female, morbidly obese, 5 foot 6 inches, 245 pounds, 39 BMI with end-stage renal disease in need of dialysis access. I was consulted today. She is kept n.p.o., unfortunately no on held her anticoagulation, she is on Eliquis. Her potassium is less than 5. PLAN: Hold her Eliquis and plan in the next 48 hours, placement of hemodialysis catheter, possible central line and prior left arm abscess access. Fifteen years ago, she had a mastectomy for breast cancer. She did not require chemotherapy. She did have radiation therapy. The patient has had several ultrasounds. The patient is right handed. She had ultrasound vein mapping and also on exam, she is noted to have ecchymosis about the antecubital area from previous IV access and IVs, currently IVs in her right hand. Ultrasound vein mapping revealed that there was thrombus in her right antecubital vein and cephalic vein in upper arm. It makes it not usable for dialysis access, this is unfortunate for a patient who has had a prior left mastectomy. Her basilic vein on the right could be used for dialysis access, but that would require second-stage procedure. I have ordered repeat ultrasound of her left arm as the patient states she had a mastectomy and the tech did not do it. Hopefully, she will be able to have her dialysis access in her left arm in the next 48 hours. ALLERGIES: CODEINE, MORPHINE. SOCIAL HISTORY: Tobacco none, alcohol none. The patient tobacco cessation more than 50 years ago, one or two pack no alcohol. Drug use, none. The patient is . Her son is power of associate attorney. She is full code. MEDICATIONS: At home: 1. Nitroglycerin. 2. Carvedilol. 3. Atorvastatin. 4. Aspirin. 5. Eliquis. 6. Acetaminophen. 7. Insulin. 8. Furosemide. 9. Zetia. 10. Procardia XL. 11. Isosorbide. 12. Clonidine. PAST SURGICAL HISTORY: 1. The patient had a mastectomy more than 15 years ago. She had radiation to left chest wall post mastectomy. The patient had a laparotomy for hysterectomy and suffered a ureteral injury requiring extension to her upper abdomen with repair of her ureter. She is in the hospital for 3-4 weeks she states. 2. Appendectomy. 3. History of right nephrectomy. 4. Coronary bypass grafting, three vessels. PAST MEDICAL HISTORY: 1. COPD. 2. Congestive heart failure. 3. Atrial fibrillation. 4. Diabetes mellitus type 2. 5. Morbid obesity. 6. Metabolic syndrome. 7. History of left breast cancer. 8. History of right nephrectomy. 9. History of lumbar surgery. PHYSICAL EXAMINATION: VITAL SIGNS: Height 5 foot 6 inches, 245 pounds, 39 BMI, pulse 77, respirations 16, blood pressure 140/60. HEAD, EARS, EYES, NOSE AND THROAT: Unremarkable. LUNGS: Clear to auscultation. CARDIAC: Regular rate and rhythm without murmur or gallop. ABDOMEN: Soft, nontender, obese. The scar per above surgical history. Upper midline from her upper abdomen to her pubis. EXTREMITIES: Obese, mild edema. Palpable radial pulses bilaterally. Ecchymosis in right antecubital area indicative of recent blood draws and IV access. ASSESSMENT AND PLAN: End-stage renal disease, on anticoagulation, hold her anticoagulation. PLAN: Placement of left or right arm fistula as well as a hemodialysis catheter in next 48 hours after Eliquis has been discontinued. Job ID: [id number]
[2019-07-05] MEDS: HumaLOG 300 UNITS/3 ML VIAL SC PRN (05:46)
[2019-07-05 06:08] LABS: #Basophils 0.1 thou/uL (0.0-0.2); #Eosinphils 0.1 thou/uL (0.0-0.7); #Monocytes 1.2 thou/uL (0.11-0.59); %Basophils 0.5 % (0.0-1.0); %Eosinophils 0.7 % (0.0-10.0); %Lymphocytes 26.6 % (21.0-51.0); %Monocytes 10.4 % (0.0-10.0); %Neutrophils 61.9 % (42.0-75.0); Hemoglobin 9.5 g/dL (12.0-16.0); Mean Corpuscular HGB CONC 31.6 g/dL (32.0-36.0); Mean Corpuscular Hemoglobin 29.9 pg (27.0-31.0); Mean Corpuscular Volume 94.5 fL (78.0-98.0); Mean Platelet Volume 10.8 fL (7.4-10.4); Platelet Count 207 thou/uL (130-400); RBC Distribution Width 12.4 % (11.5-14.5); Red Blood Cell (RBC) Count 3.17 mill/uL (4.20-5.40); White Blood Cell (WBC) Count 11.3 thou/uL (4.8-10.8)
[2019-07-05 06:31] LABS: Anion Gap 14 mmol/L (10-20); BUN (Urea Nitrogen) 98 mg/dL (9.8-20.1); Calc. Creatinine Clearance 18 mL/min (70-130); Calcium 7.8 mg/dL (7.8-10.44); Carbon Dioxide 17 mmol/L (23-31); Chloride 113 mmol/L (98-107); Estimated GFR-MDRD 9; Glucose 202 mg/dL (83-110); Potassium 4.5 mmol/L (3.5-5.1); Sodium 139 mmol/L (136-145)
[2019-07-05] MEDS: Oseltamivir 75 MG CAP PO SCH (07:58)
[2019-07-05] MEDS: Ferrous Sulfate 325 MG TAB PO SCH ×2 (07:59→16:51)
[2019-07-05] MEDS: predniSONE 20 MG TAB PO SCH (07:59)
[2019-07-05] MEDS: cloNIDine 0.1 MG TAB PO SCH ×2 (08:00→20:51)
[2019-07-05] MEDS: Cefuroxime Axetil 250 MG TAB PO SCH ×2 (08:00→20:50)
[2019-07-05] MEDS: Insulin Glargine 60 UNITS in Pre-Filled Syringe 1 EACH SC SCH ×2 (08:01→20:53)
[2019-07-05] MEDS: Carvedilol 3.125 MG TAB PO SCH ×2 (08:01→16:51)
[2019-07-05] MEDS: NIFEdipine XL 30 MG TAB PO SCH (08:01)
[2019-07-05] MEDS: Insulin Regular 300 UNITS/3 ML VIAL SC SCH ×3 (08:02→16:53)
[2019-07-05] MEDS: Aspirin Chewable 81 MG TAB PO SCH (08:04)
[2019-07-05] MEDS ORDERED: Tuberculin PPD 0.1 ML VIAL I-DERMAL SCH ×2 (09:45→12:00)
--- NOTE | 2019-07-05 10:14 | PRG ---
DATE OF SERVICE: 07/05/2019 SUBJECTIVE: Ms. Lehman is a 74-year-old white female with known history of chronic renal failure. Renal function has been progressively worsening. She is scheduled for placement of dialysis catheter this Thursday. She is off her anticoagulation. No new complaints today. Still mildly short of breath. Please note, she has also underlying COPD. OBJECTIVE: VITAL SIGNS: Blood pressure is 152/69, heart rate 76, respiratory rate 16, temperature 96.8, and pulse ox 96%. GENERAL: Awake, alert, comfortable. SKIN: Adequate turgor. HEENT: Slightly pale conjunctivae. Anicteric sclerae. No neck mass. No carotid bruits. No JVD. LUNGS: Decreased breath sounds. HEART: Normal sinus rhythm. No murmur. No gallops. No rubs. ABDOMEN: Globular, soft, nontender. No masses. EXTREMITIES: No edema. No deformities. MEDICATIONS: Medications of July 05, 2019, were reviewed. LABORATORY DATA: Laboratories of July 05, 2019; hemoglobin 9.8. Sodium 149, potassium 4.5, chloride 103, carbon dioxide 17, BUN 98, creatinine 4.69, GFR is 9 mL/minute. ASSESSMENT AND PLAN: 1. Chronic renal failure, progressive azotemia, worsening renal dysfunction. We will initiate dialysis once the dialysis catheter have been placed tomorrow. 2. Anemia, continuing weekly Epogen. We will order for outpatient dialysis placement. Overall, agree with current management. Job ID: [id number]
[2019-07-05 11:46] LABS: Hep B Core Total Ab Non-Reactive (NonReactive)
[2019-07-05 11:52] LABS: HBSAg Index 0.19 S/CO (0-0.99); Hep B Surf Ag Non-Reactive S/CO (NonReactive)
[2019-07-05 11:53] LABS: HBSAB Concentration 0.58 mIU/mL; Hep B Surf AB Non-Reactive (NonReactive); Hep C IgG Ab Non-Reactive (NonReactive)
[2019-07-05 11:54] LABS: Hep C Index 0.07 S/CO (0-0.79)
--- NOTE | 2019-07-05 17:19 | PRG ---
DATE OF SERVICE: 07/05/2019 SUBJECTIVE: Marielle Lehman is in no distress. She is tentatively on the schedule now for tomorrow for dialysis access. OBJECTIVE: VITAL SIGNS: Have been stable. LUNGS: Still remarkable for coarse wheezes, but she is improved compared to her exam on admission. HEART: Regular rhythm. ABDOMEN: Soft. IMPRESSION: Influenza leading to chronic obstructive pulmonary disease/asthma exacerbation, clinically improving, slowly. PLAN: Continue with supportive care. Job ID: [id number]
--- NOTE | 2019-07-05 20:44 | PDOC.HOSPP ---
- Subjective Encounter Date: 07/05/19 Encounter Time: 16:10 Subjective: f/u for Influenza on Tamiflu, sepsis with PNA on current Ceftin. States feeling better overall with plans for HD catheter/AV fistula placement in am. - Objective Vital Signs & Weight: Vital Signs (12 hours) Temp Pulse Resp BP Pulse Ox 07/05/19 20:00 97.2 F L 70 20 158/72 H 94 L 07/05/19 18:56 70 16 96 07/05/19 14:46 63 14 96 Weight Weight 245 lb 3.2 oz I&O: 07/04/19 07/05/19 07/06/19 06:59 06:59 06:59 Intake Total 8970 081 7070 Output Total 3100 Balance -1294 458 9176 Result Diagrams: 07/05/19 05:51 07/05/19 05:51 Additional Labs: Accuchecks 07/05/19 07/05/19 07/05/19 16:19 11:29 04:48 POC Glucose 244 H 180 H 211 H 07/04/19 20:20 POC Glucose 411 H Hospitalist ROS - Medication Medications: Active Medications Generic Name Dose Route Start Last Admin Trade Name Freq PRN Reason Stop Dose Admin Albuterol/Ipratropium 3 ml 06/30/19 13:00 07/05/19 18:56 Duoneb NEB 3 ml [id number] REJI Administration Aspirin 81 mg 07/01/19 09:00 07/05/19 08:04 Aspirin Chewable PO Not Given DAILY REJI Atorvastatin Calcium 80 mg 06/30/19 21:00 07/04/19 21:04 Lipitor PO 80 mg HS REJI Administration Carvedilol 3.125 mg 06/30/19 17:00 07/05/19 16:51 Coreg PO 3.125 mg BID-WM REJI Administration Cefuroxime Axetil 250 mg 07/04/19 21:00 07/05/19 08:00 Ceftin PO 250 mg Q12HR REJI Administration Clonidine 0.1 mg 06/30/19 21:00 07/05/19 08:00 Catapres PO 0.1 mg BID REJI Administration Ezetimibe 10 mg 06/30/19 21:00 07/04/19 21:04 Zetia PO 10 mg 2100 REJI Administration Epoetin Lee-epbx 7,500 unit 07/01/19 10:00 07/01/19 14:13 Retacrit SC 7,500 unit Q7D REJI Administration Ferrous Sulfate 325 mg 07/01/19 17:00 07/05/19 16:51 Feosol PO 325 mg BID-WM REJI Administration Guaifenesin 200 mg 06/29/19 23:51 06/30/19 05:51 Organ-I Nr PO 200 mg Q4H PRN Administration Congestion Insulin Glargine 60 units/ 0.6 mls @ 0 mls/hr 07/04/19 21:00 07/05/19 08:01 Miscellaneous Medication SC 0.6 mls BID REJI Administration As Directed Insulin Human Lispro 0 units 06/30/19 09:38 07/05/19 05:46 Humalog SC 6 unit .AGGRESSIVE SLIDING PRN Administration Aggressive Correctional Scale Insulin Human Lispro 0 units 06/30/19 09:38 07/04/19 21:04 Humalog SC 5 unit .BEDTIME SLIDING SC PRN Administration Bedtime Correctional Scale Insulin Human Regular 8 units 07/04/19 12:00 07/05/19 16:53 Humulin R SC 8 unit TID-WM REJI Administration Isosorbide Mononitrate 60 mg 06/30/19 21:00 07/04/19 21:04 Imdur PO 60 mg HS REJI Administration Nifedipine 30 mg 07/01/19 09:00 07/05/19 08:01 Procardia Xl PO 30 mg DAILY REJI Administration Oseltamivir Phosphate 75 mg 07/01/19 09:00 07/05/19 07:58 Tamiflu PO 07/10/19 09:01 75 mg DAILY REJI Administration Sodium Chloride 10 ml 06/30/19 09:00 07/05/19 08:05 Flush - Normal Saline IVF 10 ml Q12HR REJI Administration Sodium Chloride 10 ml 06/30/19 07:25 07/02/19 17:39 Flush - Normal Saline IVF 10 ml PRN PRN Administration Saline Flush - Exam General Appearance: NAD, awake alert Eye: PERRL, anicteric sclera ENT: normocephalic atraumatic, no oropharyngeal lesions Neck: supple, symmetric, no JVD, no thyromegaly, no lymphadenopathy Heart: RRR, no gallops, no rubs, normal peripheral pulses Respiratory - other findings: diminished bilat, coarse sounds in R field Gastrointestinal: soft, non-tender, non-distended, normal bowel sounds Extremities: no cyanosis Extremities - other findings: 3+ edema LE's Skin: normal turgor Neurological: cranial nerve grossly intact, no new deficit Musculoskeletal: normal tone, generalized weakness Psychiatric: normal affect, A&O x 3 Hosp A/P (1) Influenza Code(s): J11.1 - FLU DUE TO UNIDENTIFIED INFLUENZA VIRUS W OTH RESP MANIFEST Status: Acute Plan: Continue Tamiflu daily, resp precautions (2) Acute worsening of stage 4 chronic kidney disease Code(s): N18.4 - CHRONIC KIDNEY DISEASE, STAGE 4 (SEVERE) Status: Acute Plan: Plan for initiation of HD, avoid nephrotoxic meds and limit contrast exposure (3) Acute hypoxemic respiratory failure Code(s): J96.01 - ACUTE RESPIRATORY FAILURE WITH HYPOXIA Status: Acute Plan: Resolving, off O2 supplementation (4) Sepsis due to pneumonia Code(s): J18.9 - PNEUMONIA, UNSPECIFIED ORGANISM; A41.9 - SEPSIS, UNSPECIFIED ORGANISM Status: Acute Plan: Resolving (5) DM type 2 (diabetes mellitus, type 2) Status: Chronic Qualifiers: Diabetes mellitus buttermaker insulin use: with buttermaker use Diabetes mellitus complication status: with kidney complications Diabetes mellitus complication detail: with chronic kidney disease Chronic kidney disease stage : stage 4 (severe) Qualified Code(s): E11.22 - Type 2 diabetes mellitus with diabetic chronic kidney disease; N18.4 - Chronic kidney disease, stage 4 (severe ); Z79.4 - intermediate frame tender (current) use of insulin Plan: Glargine 60u BID, ISS, serial accuchecks - Plan continue antibiotics, PT/OT, social work administrator, respiratory therapy, DVT proph w/ SCDs Stable currently Continue Tamiflu Continue Ceftin 250mg BID Mucolytics OOB/ambulate Plan for HD catheter/AV fistula placement in am AM lab: BMP
[2019-07-05] MEDS: Ezetimibe 10 MG TAB PO SCH (20:50)
[2019-07-05] MEDS: Atorvastatin Calcium 40 MG TAB PO SCH (20:50)
[2019-07-06] MEDS: Carvedilol 3.125 MG TAB PO SCH ×2 (05:48→18:33)
[2019-07-06 06:04] LABS: Anion Gap 15 mmol/L (10-20); BUN (Urea Nitrogen) 103 mg/dL (9.8-20.1); Calc. Creatinine Clearance 19 mL/min (70-130); Calcium 7.8 mg/dL (7.8-10.44); Carbon Dioxide 18 mmol/L (23-31); Chloride 113 mmol/L (98-107); Estimated GFR-MDRD 9; Glucose 188 mg/dL (83-110); Potassium 4.6 mmol/L (3.5-5.1); Sodium 141 mmol/L (136-145)
[2019-07-06] MEDS: Insulin Regular 300 UNITS/3 ML VIAL SC SCH ×3 (08:17→18:34)
[2019-07-06] MEDS: Ferrous Sulfate 325 MG TAB PO SCH ×2 (08:18→18:33)
[2019-07-06] MEDS: Aspirin Chewable 81 MG TAB PO SCH (08:18)
[2019-07-06] MEDS: Cefuroxime Axetil 250 MG TAB PO SCH ×2 (08:21→20:37)
[2019-07-06] MEDS: Oseltamivir 75 MG CAP PO SCH (08:21)
[2019-07-06] MEDS: NIFEdipine XL 30 MG TAB PO SCH (08:32)
[2019-07-06] MEDS: cloNIDine 0.1 MG TAB PO SCH ×2 (08:32→20:37)
[2019-07-06] MEDS: Insulin Glargine 60 UNITS in Pre-Filled Syringe 1 EACH SC SCH ×2 (08:32→20:39)
--- NOTE | 2019-07-06 09:35 | PRG ---
DATE OF SERVICE: 07/06/2019 SUBJECTIVE: Ms. Lehman is a 74-year-old white female, followed up by the Renal Service for her chronic renal failure. She has had progressive azotemia. For that reason, she will be initiated on dialysis. Surgical consult has been done. She has a scheduled cuffed dialysis catheter placement with possible AV fistula. No other complaints today. OBJECTIVE: VITAL SIGNS: Blood pressure 132/74, heart rate 61, temperature 97.3, pulse ox 94%, respiratory rate 16. GENERAL: Awake, sitting comfortable, not in distress. SKIN: Adequate turgor. HEENT: She has slightly pale conjunctivae. Anicteric sclerae. No neck mass. No carotid bruits. No JVD. CHEST: No deformities. LUNGS: Decreased breath sounds/harsh breath sounds. HEART: Normal sinus rhythm. No murmur. No gallops. No rubs. ABDOMEN: Globular, soft, nontender. EXTREMITIES: No edema. MEDICATIONS: Of July 06, 2019, reviewed. LABORATORY DATA: Laboratories of July 05, 2019: Hemoglobin 9.5 July 06, 2019: Sodium 141, potassium 4.6, chloride 103, carbon dioxide 18, BUN 103, creatinine 4.64, calcium 7.8. ASSESSMENT AND PLAN: 1. Chronic renal failure - progressive azotemia. We will initiate dialysis once the cuffed hemodialysis catheter is placed. 2. Anemia. Continuing weekly Epogen. 3. Shortness of breath, multifactorial, slowly improving. The patient has also underlying chronic obstructive pulmonary disease. Agree with current management. Job ID: [id number]
[2019-07-06] MEDS ORDERED: Lidocaine 1% w/Epinephrine 1:100K 20 ML VIAL ONE (15:55)
[2019-07-06] MEDS ORDERED: Protamine Sulfate 50 MG/5 ML VIAL ONE (15:55)
[2019-07-06] MEDS ORDERED: Lidocaine 2% PF 5 ML VIAL ONE (15:55)
[2019-07-06] MEDS ORDERED: Bupivacaine PF 0.5% 30 ML VIAL ONE (15:55)
[2019-07-06] MEDS ORDERED: Heparin 10,000 UNITS/1 ML VIAL ONE (15:55)
[2019-07-06] MEDS ORDERED: Sodium Chloride 0.9% 20 ML ONE (16:03)
[2019-07-06] MEDS ORDERED: Ketamine 50 MG/ML (10ML VIAL) ONE (16:03)
[2019-07-06] MEDS ORDERED: Propofol 500 MG/50 ML VIAL ONE (16:03)
[2019-07-06] MEDS ORDERED: Dexmedetomidine 200 MCG/2 ML VIAL ONE (16:03)
[2019-07-06] MEDS ORDERED: Ondansetron HCl/PF 4 MG/2 ML Vial IVP PRN (16:22)
[2019-07-06] MEDS ORDERED: Promethazine HCl 25 MG/ML VIAL SLOW IVP PRN (16:22)
--- NOTE | 2019-07-06 17:40 | RAD ---
PORTABLE CHEST: 07/06/19 HISTORY: Catheter placement. COMPARISON: 06/29/19 study. Heart size is enlarged. A right sided Hemosplit catheter is seen. Catheter tip overlies the distal gonzalez perior vena cava. There is also a left sided central line. Catheter tip also overlying the distal sup erior vena cava. No pneumothorax is identified. Atelectatic changes are seen in the lung bases. IMPRESSION: Line placement as described above. No signs of pneumothorax. POS: EVA
--- NOTE | 2019-07-06 19:57 | PRG ---
DATE OF SERVICE: 07/06/2019 SUBJECTIVE: Marielle Lehman says she is feeling better. She is tentatively on schedule for 2:00 p.m. dialysis catheter. OBJECTIVE: VITAL SIGNS: She is afebrile. Heart rate is in the 60s, respiratory rate 16, oximetry is 96% on room air, blood pressure is 179/82. LUNGS: Remarkable for diffuse wheezes. HEART: Regular rhythm. ABDOMEN: Soft. She is not using any accessory muscle. She is in no distress. From an asthma standpoint, she could go home, but it is my understanding, she will be dialyzed for several days before she goes home. Her potassium was 4.6 today, creatinine was 4.64, her BUN was 103. Job ID: [id number]
[2019-07-06] MEDS: Ezetimibe 10 MG TAB PO SCH (20:37)
[2019-07-06] MEDS: Atorvastatin Calcium 40 MG TAB PO SCH (20:38)
[2019-07-06] MEDS: Acetaminophen 325 MG TAB PO PRN (20:47)
--- NOTE | 2019-07-06 23:11 | OP ---
DATE OF PROCEDURE: 07/06/2019 PREOPERATIVE DIAGNOSES: End-stage renal disease, flu syndrome, occluded right antecubital vein secondary to iatrogenic access. POSTOPERATIVE DIAGNOSES: End-stage renal disease, flu syndrome, occluded right antecubital vein secondary to iatrogenic access. PROCEDURES PERFORMED: Right IJ cuffed tunneled hemodialysis catheter, AngioDynamics pre-curved. Left IJ central line triple lumen (poor IV access). Note: Left arm fistula postponed due to flu-like syndrome and coughing, will be done at a later time. DESCRIPTION OF PROCEDURE: The patient was taken to the operating room, where under intravenous sedation in the supine position, neck and chest were prepared with ChloraPrep and draped in routine fashion. Local anesthetic mixture of 0.5% Marcaine 30 mL mixed with 1% Xylocaine with epinephrine. A 20 mL infiltrated in the skin and subcutaneous tissue about the operative site. Trocar catheter was cannulated in the right and left internal jugular veins under ultrasound guidance and J-wire threaded. Trocar catheter was removed. Skin site was enlarged sharply on both sides. Stab incision was made over the right chest. Seldinger technique used to place a triple-lumen catheter in the left internal jugular vein and secured with 3-0 nylon suture. J-wire removed. Each port aspirated blood, flushed with saline solution. Pre-curved AngioDynamics cuffed tunneled hemodialysis catheter tunneled between 2 incisions, placing the fabric cuff beneath the skin exit site and catheter secured with 2 interrupted suture of 3-0 nylon. Small and medium size dilators placed over the J-wire and the internal jugular vein removed. Dilator and Peel-Away sheath placed over the J-wire in superior vena cava. Dilator and J-wire removed. Catheter placed with the Peel-Away sheath. Peel-Away sheath removed. Platysma was approximated with 4-0 Monocryl, skin with subdermal 4-0 Monocryl, and [place] glue applied. Each port aspirated blood and flushed with saline solution with heparinized solution of 1000 units of heparin per mL, indicating the volume of the port. Job ID: [id number]
[2019-07-07] MEDS: HumaLOG 300 UNITS/3 ML VIAL SC PRN (06:07)
[2019-07-07] MEDS: Ferrous Sulfate 325 MG TAB PO SCH ×3 (08:40→17:56)
[2019-07-07] MEDS: Carvedilol 3.125 MG TAB PO SCH ×3 (08:40→17:56)
[2019-07-07] MEDS: Insulin Regular 300 UNITS/3 ML VIAL SC SCH ×3 (08:40→18:00)
--- NOTE | 2019-07-07 08:51 | PRG ---
DATE OF SERVICE: 07/07/2019 SERVICE: Renal Medicine. SUBJECTIVE: Ms. Lehman is a 74-year-old white female, followed up for her chronic renal failure. Renal function has worsened over time. She has also had been in volume overload. We have asked Surgery to place a dialysis catheter, which she received yesterday. She will be undergoing a 1-hour hemodialysis today with fluid removal as tolerated. We will do daily dialysis with 1-hour increments increased until I reach 4 hours with her. No other complaints today except she feels cold. No chest pain. No shortness of breath. OBJECTIVE: VITAL SIGNS: Blood pressure 180/78, heart rate 80, respiratory rate 18, and pulse ox 98%. GENERAL: The patient is awake, alert, comfortable, obese, not in distress. SKIN: Adequate turgor. HEENT: She has a slightly pale conjunctivae. Anicteric sclerae. NECK: No neck mass. No carotid bruits. No JVD. CHEST: No deformities. LUNGS: Clear breath sounds. HEART: Normal sinus rhythm. No murmur. No gallops. No rubs. ABDOMEN: Globular, soft, and nontender. No masses. EXTREMITIES: No edema. MEDICATIONS: Medications of July 07, 2019; were reviewed. LABORATORY DATA: Laboratories of July 05, 2019; white count 11.2, hemoglobin 9.5. On July 06, 2019; sodium 141, potassium 4.6, chloride 113, carbon dioxide 18, BUN 103, creatinine 4.64, glucose 188, and calcium 7.8. ASSESSMENT AND PLAN: 1. Chronic renal failure/end-stage renal disease, hemodialysis x1 hour today with fluid removal as tolerated. 2. The patient has a cuffed hemodialysis catheter. The plan is to have an arteriovenous fistula placed tomorrow by Dr. Broussard. We are holding her anticoagulation. 3. Anemia. Continuing weekly Epogen. Case management consultation has been done for outpatient dialysis. Job ID: [id number]
[2019-07-07] MEDS ORDERED: READ PPD TEST SITE PO SCH (09:00)
[2019-07-07] MEDS: Insulin Glargine 60 UNITS in Pre-Filled Syringe 1 EACH SC SCH (09:00)
[2019-07-07] MEDS: NIFEdipine XL 30 MG TAB PO SCH (11:00)
[2019-07-07] MEDS: Aspirin Chewable 81 MG TAB PO SCH (11:04)
[2019-07-07] MEDS: Oseltamivir 75 MG CAP PO SCH (11:04)
[2019-07-07] MEDS: Cefuroxime Axetil 250 MG TAB PO SCH ×2 (11:04→22:00)
[2019-07-07] MEDS: cloNIDine 0.1 MG TAB PO SCH ×2 (11:05→22:00)
[2019-07-07] MEDS: Acetaminophen 325 MG TAB PO PRN (12:30)
--- NOTE | 2019-07-07 14:18 | PRG ---
DATE OF SERVICE: 07/07/2019 SUBJECTIVE: Marielle Lehman is doing well today. She is feeling much better since having dialyzed once. She states she is not coughing at all. She feels fairly well. OBJECTIVE: LUNGS: Clear to auscultation. CARDIAC: Regular rate and rhythm. No murmur or gallop. ABDOMEN: Soft, nontender. Hemodialysis catheter working well for dialysis. ASSESSMENT AND PLAN: Left arteriovenous fistula. We will plan that for tomorrow, regional and TIVA. She understands risks and benefits. She can go home postoperatively after that or whenever dialysis is arranged in the future. Job ID: [id number]
[2019-07-07] MEDS ORDERED: Heparin 10,000 UNITS/ 10 ML VIAL ONE (14:23)
--- NOTE | 2019-07-07 16:25 | PRG ---
DATE OF SERVICE: 07/07/2019 Ms. Lehman is doing well. She says her neck sort of which she had a tunneled catheter. She is tentatively scheduled for access to her left upper extremity tomorrow. She still has faint wheezes. Her main complaint is her mouth hurts. She is developing signs of thrush. Just noticed that it looks like her steroids have been discontinued. It is probably a little premature to discontinue her steroids given that she is still mildly bronchospastic. She does need some Diflucan for her mouth and some Magic mouthwash. We will continue to follow. Job ID: [id number]
--- NOTE | 2019-07-07 16:37 | PDOC.HOSPP ---
- Subjective Encounter Date: 07/07/19 Encounter Time: 14:00 Subjective: f/u for ESRD initiated on HD. Receiving Tamiflu for Influenza. Feels weak and tired after HD. Nursing reported hypoglycemic this am after being NPO in preparation for HD catheter insertion. - Objective Vital Signs & Weight: Vital Signs (12 hours) Temp Pulse Resp BP BP Pulse Ox 07/07/19 16:00 97.6 F 88 18 152/76 H 94 L 07/07/19 13:36 80 14 95 07/07/19 12:32 137/69 07/07/19 11:05 186/94 H 07/07/19 11:00 80 186/94 H 07/07/19 08:00 97.9 F 07/07/19 07:04 80 18 98 Weight Admit Weight 245 lb 3.2 oz Weight 245 lb 3.2 oz I&O: 07/06/19 07/07/19 07/08/19 06:59 06:59 06:59 Intake Total 1920 1640 240 Balance 1920 1640 240 Result Diagrams: 07/05/19 05:51 07/06/19 05:30 Additional Labs: Accuchecks 07/07/19 07/07/19 07/07/19 11:47 11:01 05:49 POC Glucose 107 113 H 214 H 07/07/19 07/06/19 07/06/19 04:13 20:25 18:55 POC Glucose 57 L* 93 87 07/06/19 18:21 POC Glucose 58 L* Hospitalist ROS - Medication Medications: Active Medications Generic Name Dose Route Start Last Admin Trade Name Freq PRN Reason Stop Dose Admin Acetaminophen 650 mg 06/30/19 09:38 07/07/19 12:30 Tylenol PO 650 mg Q4H PRN Administration Headache/Fever/Mild Pain (1-3) Albuterol/Ipratropium 3 ml 06/30/19 13:00 07/07/19 13:36 Duoneb NEB 3 ml [id number] REJI Administration Aspirin 81 mg 07/01/19 09:00 07/07/19 11:04 Aspirin Chewable PO Not Given DAILY REJI Atorvastatin Calcium 80 mg 06/30/19 21:00 07/06/19 20:38 Lipitor PO 80 mg HS REJI Administration Carvedilol 3.125 mg 06/30/19 17:00 07/07/19 11:06 Coreg PO 3.125 mg BID-WM REJI Administration Cefuroxime Axetil 250 mg 07/04/19 21:00 07/07/19 11:04 Ceftin PO 250 mg Q12HR REJI Administration Clonidine 0.1 mg 06/30/19 21:00 07/07/19 11:05 Catapres PO 0.1 mg BID REJI Administration Ezetimibe 10 mg 06/30/19 21:00 07/06/19 20:37 Zetia PO 10 mg 2100 REJI Administration Epoetin Lee-epbx 7,500 unit 07/01/19 10:00 07/01/19 14:13 Retacrit SC 7,500 unit Q7D REJI Administration Ferrous Sulfate 325 mg 07/01/19 17:00 07/07/19 11:05 Feosol PO 325 mg BID-WM REJI Administration Insulin Human Lispro 0 units 06/30/19 09:38 07/07/19 06:07 Humalog SC 6 unit .AGGRESSIVE SLIDING PRN Administration Aggressive Correctional Scale Insulin Human Lispro 0 units 06/30/19 09:38 07/04/19 21:04 Humalog SC 5 unit .BEDTIME SLIDING SC PRN Administration Bedtime Correctional Scale Insulin Human Regular 8 units 07/04/19 12:00 07/07/19 12:27 Humulin R SC Not Given TID-WM REJI Isosorbide Mononitrate 60 mg 06/30/19 21:00 07/06/19 20:38 Imdur PO 60 mg HS REJI Administration Nifedipine 30 mg 07/01/19 09:00 07/07/19 11:00 Procardia Xl PO 30 mg DAILY REJI Administration Oseltamivir Phosphate 75 mg 07/01/19 09:00 07/07/19 11:04 Tamiflu PO 07/10/19 09:01 75 mg DAILY REJI Administration Sodium Chloride 10 ml 06/30/19 09:00 07/07/19 11:06 Flush - Normal Saline IVF 10 ml Q12HR REJI Administration Sodium Chloride 10 ml 06/30/19 07:25 07/02/19 17:39 Flush - Normal Saline IVF 10 ml PRN PRN Administration Saline Flush - Exam General Appearance: NAD, awake alert Eye: PERRL, anicteric sclera ENT: normocephalic atraumatic, no oropharyngeal lesions Neck: supple, symmetric, no JVD, no thyromegaly Neck - other findings: + ecchymosis near tunneled HD and L IJ CVC Heart: RRR, no gallops, no rubs, normal peripheral pulses Respiratory - other findings: coarse sounds in bases Gastrointestinal: soft, non-tender, non-distended, normal bowel sounds Extremities: no cyanosis, no clubbing, 2+ LE edema Skin: normal turgor Neurological: cranial nerve grossly intact, no new deficit Psychiatric: normal affect, A&O x 3 Hosp A/P (1) Influenza Code(s): J11.1 - FLU DUE TO UNIDENTIFIED INFLUENZA VIRUS W OTH RESP MANIFEST Status: Acute Plan: Continue Tamiflu, droplet precautions (2) Acute worsening of stage 4 chronic kidney disease Code(s): N18.4 - CHRONIC KIDNEY DISEASE, STAGE 4 (SEVERE) Status: Acute Plan: Initiated on HD, serial monitoring (3) Acute hypoxemic respiratory failure Code(s): J96.01 - ACUTE RESPIRATORY FAILURE WITH HYPOXIA Status: Acute Plan: Improved with volume removal, continue O2 supplementation (4) Sepsis due to pneumonia Code(s): J18.9 - PNEUMONIA, UNSPECIFIED ORGANISM; A41.9 - SEPSIS, UNSPECIFIED ORGANISM Status: Acute (5) DM type 2 (diabetes mellitus, type 2) Status: Chronic Qualifiers: Diabetes mellitus correction insulin use: with director long term care use Diabetes mellitus complication status: with kidney complications Diabetes mellitus complication detail: with chronic kidney disease Chronic kidney disease stage : stage 4 (severe) Qualified Code(s): E11.22 - Type 2 diabetes mellitus with diabetic chronic kidney disease; N18.4 - Chronic kidney disease, stage 4 (severe ); Z79.4 - [facility] (current) use of insulin - Plan continue antibiotics, PT/OT, 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
[2019-07-07] MEDS: Fluconazole 100 MG TAB PO SCH (17:56)
[2019-07-07] MEDS: Aluminum & Magnesium Hydroxide 60 ML, diphenhydrAMINE 150 MG, Lidocaine 2% Viscous Solu... SSW SCH ×3 (18:58→21:00)
[2019-07-07] MEDS: Insulin Glargine 25 UNITS in Pre-Filled Syringe 1 EACH SC SCH (21:58)
[2019-07-07] MEDS: Atorvastatin Calcium 40 MG TAB PO SCH (22:00)
[2019-07-07] MEDS: Ezetimibe 10 MG TAB PO SCH (22:00)
[2019-07-07] MEDS: Chlorhexidine Gluconate 15 ML UDCUP SSP SCH (22:01)
[2019-07-08] MEDS: NIFEdipine XL 30 MG TAB PO SCH (05:42)
[2019-07-08] MEDS: cloNIDine 0.1 MG TAB PO SCH ×2 (05:42→20:51)
[2019-07-08] MEDS: Carvedilol 3.125 MG TAB PO SCH ×2 (05:43→17:41)
[2019-07-08 06:09] LABS: Anion Gap 9 mmol/L (10-20); BUN (Urea Nitrogen) 69 mg/dL (9.8-20.1); Calc. Creatinine Clearance 24 mL/min (70-130); Calcium 7.5 mg/dL (7.8-10.44); Carbon Dioxide 24 mmol/L (23-31); Chloride 115 mmol/L (98-107); Estimated GFR-MDRD 12; Glucose 77 mg/dL (83-110); Potassium 4.5 mmol/L (3.5-5.1); Sodium 143 mmol/L (136-145)
--- NOTE | 2019-07-08 09:46 | PRG ---
DATE OF SERVICE: 07/08/2019 SUBJECTIVE: Ms. Lehman is a 74-year-old white female with chronic renal failure and has been initiated dialysis due to progressive azotemia and volume overload. Currently undergoing hemodialysis. She is scheduled to have an AV fistula placed today. Still not feeling well. Still complaining of some mouth soreness. No other complaints. OBJECTIVE: VITAL SIGNS: Blood pressure is noted at 107/64, heart rate 65, respiratory rate 18, temperature 97.6, and pulse ox 93% on room air. GENERAL: The patient is awake, alert, comfortable, not in distress. Obese. SKIN: Adequate turgor. HEENT: She has slightly pale conjunctivae. Anicteric sclerae. NECK: No neck mass. No carotid bruits. No JVD. CHEST: No deformities. LUNGS: Clear breath sounds. HEART: Normal sinus rhythm. No murmur. No gallops. No rubs. ABDOMEN: Globular, soft, nontender. No masses. EXTREMITIES: No edema. No deformities. MEDICATIONS: Medications of July 08, 2019 was reviewed. LABORATORY DATA: Laboratories of July 05, 2019; hemoglobin 9.5, sodium 143, potassium 4.5, chloride 115, carbon dioxide 24, BUN 69, creatinine 3.63, calcium 7.5. ASSESSMENT AND PLAN: 1. Chronic renal failure/end-stage renal disease. Continuing daily hemodialysis. Our plan is to do a 2-hour hemodialysis with fluid removal only as tolerated. 2. Oral thrush - the patient started on fluconazole. 3. Anemia. The patient has been started on weekly Epogen. 4. Continue supportive care. Job ID: [id number]
[2019-07-08] MEDS: EPOETIN ALFA-EPBX (ESRD) 4,000 UNIT/ML VIAL SC SCH (10:00)
[2019-07-08] MEDS: Ferrous Sulfate 325 MG TAB PO SCH ×2 (10:44→17:41)
[2019-07-08] MEDS: predniSONE 20 MG TAB PO SCH (10:44)
[2019-07-08] MEDS: Aspirin Chewable 81 MG TAB PO SCH (10:44)
[2019-07-08] MEDS: Cefuroxime Axetil 250 MG TAB PO SCH ×2 (10:44→20:52)
[2019-07-08] MEDS: Insulin Regular 300 UNITS/3 ML VIAL SC SCH ×3 (10:44→17:42)
[2019-07-08] MEDS: Aluminum & Magnesium Hydroxide 60 ML, diphenhydrAMINE 150 MG, Lidocaine 2% Viscous Solu... SSW SCH ×5 (10:45→20:53)
[2019-07-08] MEDS: Chlorhexidine Gluconate 15 ML UDCUP SSP SCH ×2 (10:45→20:50)
[2019-07-08] MEDS: Oseltamivir 75 MG CAP PO SCH (10:45)
--- NOTE | 2019-07-08 11:28 | PRG ---
DATE OF SERVICE: 07/08/2019 SUBJECTIVE: Ms. Lehman continues to be stable. She is nervous about her vascular procedure. She is to go down for vascular access. OBJECTIVE: VITAL SIGNS: She is afebrile, heart rate in the 60s, oximetry is 93, and blood pressure 107/64 this morning. ASSESSMENT AND PLAN: Overall, she is stable. We will follow her after surgery for her asthma. Her respiratory isolation needs to be discontinued. Job ID: [id number]
--- NOTE | 2019-07-08 11:54 | PRG ---
DATE OF SERVICE: 07/08/2019 Marielle Lehman was scheduled to have a left arm fistula today, but she had recurrence of her coughing fits and she had dyspnea and orthopnea symptoms. Thus, she is only dialyzed. Once the surgery is postponed, I would recommend we hold her anticoagulation and not restart that and she is scheduled next Thursday for left arm fistula for dialysis. Hopefully, she will be better medically stable by the end. Should she be discharged home prior to that, this could be scheduled as an outpatient at a later date. Please contact me if that is necessary. Job ID: [id number]
[2019-07-08] MEDS: Acetaminophen 325 MG TAB PO PRN (13:41)
[2019-07-08] MEDS ORDERED: Heparin 10,000 UNITS/ 10 ML VIAL ONE (13:53)
[2019-07-08] MEDS: Fluconazole 100 MG TAB PO SCH (17:41)
--- NOTE | 2019-07-08 20:06 | PDOC.HOSPP ---
- Subjective Encounter Date: 07/08/19 Encounter Time: 11:00 Subjective: patient seen on f/u was schedule for av fistula creation today, but it was cancel due to respiratory symptoms, currently patient deneis sob fever chills n/ v but does refer headache and general malaise, pt will receive h/d today - Objective Vital Signs & Weight: Vital Signs (12 hours) Temp Pulse Resp BP Pulse Ox 07/08/19 19:46 92 L 07/08/19 19:45 93 L 07/08/19 15:01 97.5 F L 99 16 114/66 88 L 07/08/19 13:35 79 20 93 L 07/08/19 11:55 97.2 F L 64 16 100/62 91 L Weight Admit Weight 245 lb 3.2 oz Weight 245 lb 3.2 oz I&O: 07/07/19 07/08/19 07/09/19 06:59 06:59 06:59 Intake Total 1640 860 Output Total 600 Balance 1640 260 Result Diagrams: 07/05/19 05:51 07/08/19 05:32 Additional Labs: Accuchecks 07/08/19 07/08/19 07/08/19 16:17 12:12 05:23 POC Glucose 199 H 70 86 07/07/19 21:10 POC Glucose 186 H Hospitalist ROS - Review of Systems All other systems reviewed; all pertinent +/- noted in HPI/Subj - Medication Medications: Active Medications Generic Name Dose Route Start Last Admin Trade Name Freq PRN Reason Stop Dose Admin Acetaminophen 650 mg 06/30/19 09:38 07/08/19 13:41 Tylenol PO 650 mg Q4H PRN Administration Headache/Fever/Mild Pain (1-3) Albuterol/Ipratropium 3 ml 06/30/19 13:00 07/08/19 19:45 Duoneb NEB 3 ml [id number] REJI Administration Aspirin 81 mg 07/01/19 09:00 07/08/19 10:44 Aspirin Chewable PO Not Given DAILY REJI Atorvastatin Calcium 80 mg 06/30/19 21:00 07/07/19 22:00 Lipitor PO 80 mg HS REJI Administration Carvedilol 3.125 mg 06/30/19 17:00 07/08/19 17:41 Coreg PO 3.125 mg BID-WM REJI Administration Cefuroxime Axetil 250 mg 07/04/19 21:00 07/08/19 10:44 Ceftin PO Not Given Q12HR [facility] Chlorhexidine Gluconate 15 ml 07/07/19 21:00 07/08/19 10:45 Chlorhexidine Gluconate SSP Not Given BID [facility] Clonidine 0.1 mg 06/30/19 21:00 07/08/19 05:42 Catapres PO 0.1 mg BID [facility] Administration Al Hydroxide/Mg Hydroxide 60 0 ml 07/07/19 17:00 07/08/19 17:46 ml/ Diphenhydramine HCl 150 mg SSW Not Given / Lidocaine HCl 60 ml/ QID [facility] Nystatin 6,000,000 units Ezetimibe 10 mg 06/30/19 21:00 07/07/19 22:00 Zetia PO 10 mg 2100 [facility] Administration Epoetin Lee-epbx 7,500 unit 07/01/19 10:00 07/08/19 10:00 Retacrit SC Not Given Q7D [facility] Ferrous Sulfate 325 mg 07/01/19 17:00 07/08/19 17:41 Feosol PO 325 mg BID-[facility] Administration Fluconazole 100 mg 07/07/19 17:00 07/08/19 17:41 Diflucan PO 07/09/19 23:59 100 mg 1700 [facility] Administration Insulin Glargine 25 units/ 0.25 mls @ 0 mls/hr 07/07/19 21:00 07/07/19 21:58 Miscellaneous Medication SC 0.25 mls [facility] Administration Insulin Human Lispro 0 units 06/30/19 09:38 07/07/19 06:07 Humalog SC 6 unit .AGGRESSIVE SLIDING PRN Administration Aggressive Correctional Scale Insulin Human Lispro 0 units 06/30/19 09:38 07/04/19 21:04 Humalog SC 5 unit .BEDTIME SLIDING SC PRN Administration Bedtime Correctional Scale Insulin Human Regular 8 units 07/04/19 12:00 07/08/19 17:42 Humulin R SC 8 unit TID-[facility] Administration Isosorbide Mononitrate 60 mg 06/30/19 21:00 07/07/19 22:00 Imdur PO 60 mg [facility] Administration Nifedipine 30 mg 07/01/19 09:00 07/08/19 05:42 Procardia Xl PO 30 mg DAILY REJI Administration Oseltamivir Phosphate 75 mg 07/01/19 09:00 07/08/19 10:45 Tamiflu PO 07/10/19 09:01 Not Given DAILY REJI Prednisone 20 mg 07/08/19 08:00 07/08/19 10:44 Prednisone PO Not Given QAM-WM REJI Sodium Chloride 10 ml 06/30/19 09:00 07/08/19 10:45 Flush - Normal Saline IVF Not Given Q12HR REJI Sodium Chloride 10 ml 06/30/19 07:25 07/02/19 17:39 Flush - Normal Saline IVF 10 ml PRN PRN Administration Saline Flush - Exam General Appearance: NAD Eye: PERRL, anicteric sclera ENT: normocephalic atraumatic, no oropharyngeal lesions Neck: supple, symmetric, no JVD Heart: RRR, no murmur, no gallops, no rubs Respiratory: CTAB, no wheezes, no rales, no ronchi Gastrointestinal: soft, non-tender, non-distended Extremities: no cyanosis, no clubbing, no edema Skin: normal turgor, no lesions, no rashes Neurological: cranial nerve grossly intact Musculoskeletal: normal tone Psychiatric: normal affect, A&O x 3 Hosp A/P (1) Influenza Code(s): J11.1 - FLU DUE TO UNIDENTIFIED INFLUENZA VIRUS W OTH RESP MANIFEST Status: Acute (2) Acute worsening of stage 4 chronic kidney disease Code(s): N18.4 - CHRONIC KIDNEY DISEASE, STAGE 4 (SEVERE) Status: Acute (3) Hypertension Code(s): I10 - ESSENTIAL (PRIMARY) HYPERTENSION Status: Chronic Qualifiers: Hypertension type: essential hypertension Qualified Code(s): I10 - Essential (primary) hypertension (4) Pneumonia Code(s): J18.9 - PNEUMONIA, UNSPECIFIED ORGANISM Status: Acute - Plan - av fistula cancelled, reschedule for thursday -continue h/d as per neprhologist - continue tamiflu and abx -continue home meds for chronic conditions -cm for opd h/d location
[2019-07-08] MEDS: Ezetimibe 10 MG TAB PO SCH (20:50)
[2019-07-08] MEDS: Atorvastatin Calcium 40 MG TAB PO SCH (20:51)
[2019-07-08] MEDS: Insulin Glargine 25 UNITS in Pre-Filled Syringe 1 EACH SC SCH (20:54)
[2019-07-09] MEDS: Acetaminophen 325 MG TAB PO PRN (00:49)
[2019-07-09] MEDS: Ferrous Sulfate 325 MG TAB PO SCH ×3 (08:30→16:19)
[2019-07-09] MEDS: NIFEdipine XL 30 MG TAB PO SCH (08:34)
[2019-07-09] MEDS: cloNIDine 0.1 MG TAB PO SCH ×2 (08:34→20:26)
[2019-07-09] MEDS: Oseltamivir 75 MG CAP PO SCH (08:34)
[2019-07-09] MEDS: Cefuroxime Axetil 250 MG TAB PO SCH ×2 (08:34→20:26)
[2019-07-09] MEDS: Carvedilol 3.125 MG TAB PO SCH ×2 (08:35→16:18)
[2019-07-09] MEDS: predniSONE 20 MG TAB PO SCH (08:35)
[2019-07-09] MEDS: Aspirin Chewable 81 MG TAB PO SCH (08:35)
[2019-07-09] MEDS: Insulin Regular 300 UNITS/3 ML VIAL SC SCH ×3 (08:37→16:46)
[2019-07-09] MEDS: Chlorhexidine Gluconate 15 ML UDCUP SSP SCH ×2 (10:03→20:29)
[2019-07-09] MEDS: Aluminum & Magnesium Hydroxide 60 ML, diphenhydrAMINE 150 MG, Lidocaine 2% Viscous Solu... SSW SCH ×4 (10:03→20:30)
--- NOTE | 2019-07-09 10:55 | PRG ---
DATE OF SERVICE: 07/09/2019 SUBJECTIVE: Ms. Lehman is a 74-year-old white female, currently undergoing hemodialysis. She has been initiated on dialysis due to progressive azotemia. She is complaining of back pain, and for that reason, we have decided, upon request , to do her only for 2 hours hemodialysis. Fluid removal to be done as tolerated. OBJECTIVE: VITAL SIGNS: Blood pressure 123/71, heart rate 92, respiratory rate 18, temperature 97.8, pulse ox 90% on room air. GENERAL: Awake, alert, supine, comfortable, not in overt distress. SKIN: Adequate turgor. HEENT: She has slightly pale conjunctivae. Anicteric sclerae. No neck mass. No carotid bruits. No JVD. CHEST: No deformities. LUNGS: Decreased breath sounds. HEART: Normal sinus rhythm. No murmurs. No gallops. No rubs. ABDOMEN: Globular, soft, nontender. No masses. EXTREMITIES: No edema. MEDICATIONS: Medications of July 09, 2019, reviewed. LABORATORY DATA: Laboratories of July 05, 2019, hemoglobin 9.5; July 09, 2019, glucose 139; July 08, 2019, potassium 4.5, BUN 69, creatinine 3.63, calcium 7.5. ASSESSMENT AND PLAN: 1. Chronic renal failure/end-stage renal disease, on hemodialysis x2 hours today. Dilaysis treatment time was shortened per request due to back pain. Again, fluid removal as tolerated. I have scheduled her back for hemodialysis for at least 3 hours this coming Thursday. 2. Shortness of breath, multifactorial etiology - COPD exacerbation. Being empirically treated with Tamiflu and antibiotics. 3. Anemia, continuing weekly Epogen. Job ID: [id number] [facility]
[2019-07-09] MEDS ORDERED: Heparin 10,000 UNITS/ 10 ML VIAL ONE (12:08)
[2019-07-09] MEDS: Fluconazole 100 MG TAB PO SCH (16:18)
[2019-07-09] MEDS: HumaLOG 300 UNITS/3 ML VIAL SC PRN ×2 (16:47→20:30)
--- NOTE | 2019-07-09 16:51 | PDOC.HOSPP ---
- Subjective Encounter Date: 07/09/19 Encounter Time: 16:45 Subjective: f/u for ESRD on HD, Influenza on Tamiflu. Feels tired but overall improved. - Objective Vital Signs & Weight: Vital Signs (12 hours) Temp Pulse Resp BP BP BP Pulse Ox 07/09/19 13:03 97.7 F 81 18 127/73 90 L 07/09/19 08:34 92 123/71 07/09/19 07:32 97.8 F 92 18 123/71 90 L 07/09/19 07:08 88 18 92 L Weight Admit Weight 245 lb 3.2 oz Weight 245 lb 3.2 oz I&O: 07/08/19 07/09/19 07/10/19 06:59 06:59 06:59 Intake Total 860 Output Total 600 Balance 260 Result Diagrams: 07/05/19 05:51 07/08/19 05:32 Additional Labs: Accuchecks 07/09/19 07/08/19 07/08/19 04:14 20:09 16:17 POC Glucose 139 H 146 H 199 H Hospitalist ROS - Medication Medications: Active Medications Generic Name Dose Route Start Last Admin Trade Name Freq PRN Reason Stop Dose Admin Acetaminophen 650 mg 06/30/19 09:38 07/09/19 00:49 Tylenol PO 650 mg Q4H PRN Administration Headache/Fever/Mild Pain (1-3) Albuterol/Ipratropium 3 ml 06/30/19 13:00 07/09/19 12:26 Duoneb NEB Not Given [id number] REJI Aspirin 81 mg 07/01/19 09:00 07/09/19 08:35 Aspirin Chewable PO 81 mg DAILY REJI Administration Atorvastatin Calcium 80 mg 06/30/19 21:00 07/08/19 20:51 Lipitor PO 80 mg HS REJI Administration Carvedilol 3.125 mg 06/30/19 17:00 07/09/19 16:18 Coreg PO 3.125 mg BID-WM REJI Administration Cefuroxime Axetil 250 mg 07/04/19 21:00 07/09/19 08:34 Ceftin PO 250 mg Q12HR REJI Administration Chlorhexidine Gluconate 15 ml 07/07/19 21:00 07/09/19 10:03 Chlorhexidine Gluconate SSP Not Given BID REJI Clonidine 0.1 mg 06/30/19 21:00 07/09/19 08:34 Catapres PO 0.1 mg BID REJI Administration Al Hydroxide/Mg Hydroxide 60 0 ml 07/07/19 17:00 07/09/19 14:07 ml/ Diphenhydramine HCl 150 mg SSW Not Given / Lidocaine HCl 60 ml/ QID REJI Nystatin 6,000,000 units Ezetimibe 10 mg 06/30/19 21:00 07/08/19 20:50 Zetia PO 10 mg 2100 REJI Administration Epoetin Lee-epbx 7,500 unit 07/01/19 10:00 07/08/19 10:00 Retacrit SC Not Given Q7D REJI Ferrous Sulfate 325 mg 07/01/19 17:00 07/09/19 16:19 Feosol PO 325 mg BID-WM REJI Administration Fluconazole 100 mg 07/07/19 17:00 07/09/19 16:18 Diflucan PO 07/09/19 23:59 100 mg 1700 REJI Administration Insulin Glargine 25 units/ 0.25 mls @ 0 mls/hr 07/07/19 21:00 07/08/19 20:54 Miscellaneous Medication SC 0.25 mls HS REJI Administration Insulin Human Lispro 0 units 06/30/19 09:38 07/09/19 16:47 Humalog SC 11 unit .AGGRESSIVE SLIDING PRN Administration Aggressive Correctional Scale Insulin Human Lispro 0 units 06/30/19 09:38 07/04/19 21:04 Humalog SC 5 unit .BEDTIME SLIDING SC PRN Administration Bedtime Correctional Scale Insulin Human Regular 8 units 07/04/19 12:00 07/09/19 16:46 Humulin R SC 8 unit TID-WM REJI Administration Isosorbide Mononitrate 60 mg 06/30/19 21:00 07/08/19 20:51 Imdur PO 60 mg HS REJI Administration Nifedipine 30 mg 07/01/19 09:00 07/09/19 08:34 Procardia Xl PO 30 mg DAILY REJI Administration Oseltamivir Phosphate 75 mg 07/01/19 09:00 07/09/19 08:34 Tamiflu PO 07/10/19 09:01 75 mg DAILY REJI Administration Prednisone 20 mg 07/08/19 08:00 07/09/19 08:35 Prednisone PO 20 mg QAM-WM REJI Administration Sodium Chloride 10 ml 06/30/19 09:00 07/09/19 10:03 Flush - Normal Saline IVF Not Given Q12HR REJI Sodium Chloride 10 ml 06/30/19 07:25 07/02/19 17:39 Flush - Normal Saline IVF 10 ml PRN PRN Administration Saline Flush - Exam General Appearance: NAD, awake alert Eye: PERRL, anicteric sclera ENT: normocephalic atraumatic, no oropharyngeal lesions Neck: supple, symmetric, no JVD, no thyromegaly Heart: RRR, no gallops, no rubs, normal peripheral pulses Respiratory: CTAB, no rales, no ronchi, normal chest expansion Gastrointestinal: soft, non-tender, non-distended, normal bowel sounds, no palpable masses Extremities: no cyanosis, no clubbing, 1+ LE edema Skin: normal turgor, no lesions Neurological: cranial nerve grossly intact, no new deficit Musculoskeletal: normal tone, generalized weakness Psychiatric: normal affect, A&O x 3 Hosp A/P (1) Influenza Code(s): J11.1 - FLU DUE TO UNIDENTIFIED INFLUENZA VIRUS W OTH RESP MANIFEST Status: Acute Plan: Continue Tamiflu another 24h (2) Acute worsening of stage 4 chronic kidney disease Code(s): N18.4 - CHRONIC KIDNEY DISEASE, STAGE 4 (SEVERE) Status: Acute Plan: HD initiated and tolerating currently (3) Acute hypoxemic respiratory failure Code(s): J96.01 - ACUTE RESPIRATORY FAILURE WITH HYPOXIA Status: Acute Plan: Improved, continue pulmonary support, O2 supplementation (4) Sepsis due to pneumonia Code(s): J18.9 - PNEUMONIA, UNSPECIFIED ORGANISM; A41.9 - SEPSIS, UNSPECIFIED ORGANISM Status: Acute Plan: Resolving (5) DM type 2 (diabetes mellitus, type 2) Status: Chronic Qualifiers: Diabetes mellitus rodent exterminator insulin use: with rodent exterminator use Diabetes mellitus complication status: with kidney complications Diabetes mellitus complication detail: with chronic kidney disease Chronic kidney disease stage : stage 4 (severe) Qualified Code(s): E11.22 - Type 2 diabetes mellitus with diabetic chronic kidney disease; N18.4 - Chronic kidney disease, stage 4 (severe ); Z79.4 - [facility] (current) use of insulin - Plan continue antibiotics, PT/OT, transition social worker, respiratory therapy, out of bed/ ambulate, DVT proph w/SCDs Stable currently Continue Tamiflu another 24h Continue Ceftin 250mg BID Mucolytics PRN OOB/ambulate Plan for AV fistula in am CM for coordination of outpt HD
--- NOTE | 2019-07-09 19:49 | PRG ---
DATE OF SERVICE: 07/09/2019 SERVICE: Pulmonary Medicine. INTERVAL HISTORY: The patient is doing fine from respiratory standpoint. She is on room air. She continues to cough, but it seems to be improving. She is bringing up very dark phlegm at this point. She also noted a nosebleed last night. She is breaking out in a cold sore. She has been doctoring it with some lip balm, but it is not going away. It remains a little bit painful. She breaks out with the some time to time. PHYSICAL EXAMINATION: VITAL SIGNS: Afebrile, pulse 77, blood pressure 167/74, respirations 18, and saturation 94% on 2 L nasal cannula. GENERAL: The patient is awake and alert, in no apparent distress. LUNGS: Good air entry. Rhonchi are present. They do not clear with cough. There is no prolonged expiratory phase or wheezing appreciated. HEART: Normal rate and regular. ABDOMEN: Soft, nontender, and nondistended. Bowel sounds are positive. MUSCULOSKELETAL: No cyanosis or clubbing. There is trace pitting in the bilateral lower extremities. NEUROLOGIC: Grossly nonfocal. LABORATORY DATA: WBC 11.3, hemoglobin 9.5, platelets 207,000. Creatinine 3.63. Basic metabolic profile is otherwise unremarkable. Urinalysis is negative. Blood cultures x2, respiratory culture and urine culture all negative to date. ASSESSMENT: 1. Asthma with acute exacerbation secondary to influenza, resolved. 2. End-stage renal disease. 3. Herpes labialis. DISCUSSION AND PLAN: I will initiate a brief course of acyclovir for her herpes outbreak. Pulmonary will continue to follow, intermittently during the hospital stay. Please call with additional questions or concerns should she get into trouble for the duration of the weekend. Job ID: [id number]
[2019-07-09] MEDS: Ezetimibe 10 MG TAB PO SCH (20:26)
[2019-07-09] MEDS: Atorvastatin Calcium 40 MG TAB PO SCH (20:27)
[2019-07-09] MEDS: Insulin Glargine 25 UNITS in Pre-Filled Syringe 1 EACH SC SCH (20:28)
[2019-07-09] MEDS ORDERED: Acyclovir 400 mg Tablet PO SCH (20:30)
[2019-07-10] MEDS: HumaLOG 300 UNITS/3 ML VIAL SC PRN ×4 (05:47→20:41)
[2019-07-10] MEDS: Cefuroxime Axetil 250 MG TAB PO SCH ×2 (08:57→20:40)
[2019-07-10] MEDS: NIFEdipine XL 30 MG TAB PO SCH (08:57)
[2019-07-10] MEDS: Carvedilol 3.125 MG TAB PO SCH ×2 (08:57→17:18)
[2019-07-10] MEDS: Acyclovir 200 mg Capsule PO SCH ×2 (08:57→20:40)
[2019-07-10] MEDS: cloNIDine 0.1 MG TAB PO SCH ×2 (08:57→20:40)
[2019-07-10] MEDS: Oseltamivir 75 MG CAP PO SCH (08:57)
[2019-07-10] MEDS: Aspirin Chewable 81 MG TAB PO SCH (08:57)
[2019-07-10] MEDS: predniSONE 20 MG TAB PO SCH (08:57)
[2019-07-10] MEDS: Insulin Regular 300 UNITS/3 ML VIAL SC SCH ×3 (08:58→17:18)
[2019-07-10] MEDS: Ferrous Sulfate 325 MG TAB PO SCH ×2 (08:58→17:18)
[2019-07-10] MEDS: Chlorhexidine Gluconate 15 ML UDCUP SSP SCH (09:31)
[2019-07-10] MEDS: Aluminum & Magnesium Hydroxide 60 ML, diphenhydrAMINE 150 MG, Lidocaine 2% Viscous Solu... SSW SCH (09:32)
--- NOTE | 2019-07-10 09:35 | PDOC.HOSPP ---
- Subjective Encounter Date: 07/10/19 Encounter Time: 09:25 Subjective: f/u for Influenza on Tamiflu completing course of therapy during the hospital stay. Receiving HD without difficulty. - Objective Vital Signs & Weight: Vital Signs (12 hours) Temp Pulse Resp BP BP BP Pulse Ox 07/10/19 08:57 67 136/73 07/10/19 07:31 97.9 F 75 18 136/73 96 07/10/19 07:00 75 16 95 07/10/19 00:10 97.5 F L 75 20 115/53 L 96 07/09/19 23:36 90 L Weight Admit Weight 245 lb 3.2 oz Weight 245 lb 3.2 oz I&O: 07/09/19 07/10/19 07/11/19 06:59 06:59 06:59 Intake Total 1180 Output Total 2600 Balance -1420 Result Diagrams: 07/05/19 05:51 07/08/19 05:32 Additional Labs: Accuchecks 07/10/19 07/09/19 07/09/19 04:37 20:00 16:46 POC Glucose 214 H 322 H 338 H Hospitalist ROS - Medication Medications: Active Medications Generic Name Dose Route Start Last Admin Trade Name Freq PRN Reason Stop Dose Admin Acetaminophen 650 mg 06/30/19 09:38 07/09/19 00:49 Tylenol PO 650 mg Q4H PRN Administration Headache/Fever/Mild Pain (1-3) Acyclovir 200 mg 07/10/19 09:00 07/10/19 08:57 Zovirax PO 07/14/19 21:01 200 mg BID REJI Administration Albuterol/Ipratropium 3 ml 06/30/19 13:00 07/10/19 07:00 Duoneb NEB 3 ml [id number] REJI Administration Aspirin 81 mg 07/01/19 09:00 07/10/19 08:57 Aspirin Chewable PO 81 mg DAILY REJI Administration Atorvastatin Calcium 80 mg 06/30/19 21:00 07/09/19 20:27 Lipitor PO 80 mg HS REJI Administration Carvedilol 3.125 mg 06/30/19 17:00 07/10/19 08:57 Coreg PO 3.125 mg BID-WM REJI Administration Cefuroxime Axetil 250 mg 07/04/19 21:00 07/10/19 08:57 Ceftin PO 250 mg Q12HR REJI Administration Chlorhexidine Gluconate 15 ml 07/07/19 21:00 07/09/19 20:29 Chlorhexidine Gluconate SSP Not Given BID [facility] Clonidine 0.1 mg 06/30/19 21:00 07/10/19 08:57 Catapres PO 0.1 mg BID REJI Administration Al Hydroxide/Mg Hydroxide 60 0 ml 07/07/19 17:00 07/09/19 20:30 ml/ Diphenhydramine HCl 150 mg SSW Not Given / Lidocaine HCl 60 ml/ QID REJI Nystatin 6,000,000 units Ezetimibe 10 mg 06/30/19 21:00 07/09/19 20:26 Zetia PO 10 mg 2100 REJI Administration Epoetin Lee-epbx 7,500 unit 07/01/19 10:00 07/08/19 10:00 Retacrit SC Not Given Q7D [facility] Ferrous Sulfate 325 mg 07/01/19 17:00 07/10/19 08:58 Feosol PO 325 mg BID- REJI Administration Insulin Glargine 25 units/ 0.25 mls @ 0 mls/hr 07/07/19 21:00 07/09/19 20:28 Miscellaneous Medication SC 0.25 mls HS REJI Administration Insulin Human Lispro 0 units 06/30/19 09:38 07/10/19 05:47 Humalog SC 6 unit .AGGRESSIVE SLIDING PRN Administration Aggressive Correctional Scale Insulin Human Lispro 0 units 06/30/19 09:38 07/09/19 20:30 Humalog SC 4 unit .BEDTIME SLIDING SC PRN Administration Bedtime Correctional Scale Insulin Human Regular 8 units 07/04/19 12:00 07/10/19 08:58 Humulin R SC 8 unit TID-[facility] Administration Isosorbide Mononitrate 60 mg 06/30/19 21:00 07/09/19 20:27 Imdur PO 60 mg HS [facility] Administration Nifedipine 30 mg 07/01/19 09:00 07/10/19 08:57 Procardia Xl PO 30 mg DAILY REJI Administration Prednisone 20 mg 07/08/19 08:00 07/10/19 08:57 Prednisone PO 20 mg QAM-[facility] Administration Sodium Chloride 10 ml 06/30/19 09:00 07/09/19 20:47 Flush - Normal Saline IVF 10 ml Q12HR REJI Administration Sodium Chloride 10 ml 06/30/19 07:25 07/02/19 17:39 Flush - Normal Saline IVF 10 ml PRN PRN Administration Saline Flush - Exam General Appearance: NAD, awake alert Eye: PERRL, anicteric sclera ENT: normocephalic atraumatic ENT - other findings: small cold sore on lip Neck: supple, symmetric, no JVD, no thyromegaly Heart: RRR, no murmur, no gallops, no rubs, normal peripheral pulses Respiratory - other findings: few scattered rhonchi Gastrointestinal: soft, non-tender, non-distended, normal bowel sounds, no palpable masses Extremities: no cyanosis, no clubbing, no edema Skin: normal turgor Neurological: cranial nerve grossly intact, no new deficit Musculoskeletal: normal tone, generalized weakness Psychiatric: normal affect, A&O x 3 Hosp A/P (1) ESRD (end stage renal disease) on dialysis Code(s): N18.6 - END STAGE RENAL DISEASE; Z99.2 - DEPENDENCE ON RENAL DIALYSIS Status: Acute Plan: HD per Renal service, tolerating current sessions, plan for AV fistula on 07/12/19 (2) Influenza Code(s): J11.1 - FLU DUE TO UNIDENTIFIED INFLUENZA VIRUS W OTH RESP MANIFEST Status: Acute Plan: Completing Tamiflu this hospital stay (3) Acute hypoxemic respiratory failure Code(s): J96.01 - ACUTE RESPIRATORY FAILURE WITH HYPOXIA Status: Acute Plan: Resolved (4) Sepsis due to pneumonia Code(s): J18.9 - PNEUMONIA, UNSPECIFIED ORGANISM; A41.9 - SEPSIS, UNSPECIFIED ORGANISM Status: Acute Plan: Resolved (5) DM type 2 (diabetes mellitus, type 2) Status: Chronic Qualifiers: Diabetes mellitus terminal operations manager insulin use: with intermediate use Diabetes mellitus complication status: with kidney complications Diabetes mellitus complication detail: with chronic kidney disease Chronic kidney disease stage : stage 4 (severe) Qualified Code(s): E11.22 - Type 2 diabetes mellitus with diabetic chronic kidney disease; N18.4 - Chronic kidney disease, stage 4 (severe ); Z79.4 - [facility] (current) use of insulin Plan: ISS, Lantus, ADA - Plan continue antibiotics, PT/OT, social worker psychiatric, respiratory therapy, out of bed/ ambulate Stable currently Completed Tamiflu Continue Ceftin 250mg BID Mucolytics PRN OOB/ambulate Plan for AV fistula 07/12/19 CM for coordination of outpt HD Likely home 07/13/19
--- NOTE | 2019-07-10 11:30 | PRG ---
DATE OF SERVICE: 07/10/2019 SERVICE: Renal Medicine. SUBJECTIVE: Ms. Lehman is a 74-year-old white female, followed up by the Renal Service for her acute kidney injury on top of her chronic renal failure. She has had progressive azotemia and for that reason, has been initiated on dialysis. She underwent dialysis. However, she shortened her treatment yesterday to 2 hours due to back pain. She is requesting to come down next time on a chair. No new complaints today. She tells me she is feeling better. OBJECTIVE: VITAL SIGNS: Blood pressure 136/73, heart rate 75, respiratory rate 18, temperature 97.9, pulse ox 96%. GENERAL: The patient is awake, alert, sitting comfortable, not in distress. SKIN: Adequate turgor. LUNGS: Decreased breath sounds. Occasional wheezing. HEART: Normal sinus rhythm. No murmur. No gallops. No rubs. ABDOMEN: Globular, soft, nontender. No masses. EXTREMITIES: Trace edema. MEDICATIONS: Medications of July 10, 2019, were reviewed. LABORATORY DATA: Laboratories of July 05, 2019, showed white count was 11.3, hemoglobin 9.5. On July 08, 2019; sodium 143, potassium 4.5, chloride 115, carbon dioxide 24, BUN 69, creatinine 3.63, calcium 7.5. ASSESSMENT AND PLAN: 1. Chronic renal failure/end-stage renal disease, continuing hemodialysis regimen. I have scheduled this patient for a 3-hour hemodialysis tomorrow. We will attempt fluid removal as tolerated. 2. Anemia, continuing weekly Epogen and iron supplementation with the patient. 3. Shortness of breath, clinically improving - multifactorial etiology. 4. We will recheck base met and CBC in a.m. Job ID: [id number]
[2019-07-10] MEDS: Insulin Glargine 25 UNITS in Pre-Filled Syringe 1 EACH SC SCH (20:40)
[2019-07-10] MEDS: Ezetimibe 10 MG TAB PO SCH (20:40)
[2019-07-10] MEDS: Atorvastatin Calcium 40 MG TAB PO SCH (20:40)
[2019-07-11] MEDS: HumaLOG 300 UNITS/3 ML VIAL SC PRN ×2 (05:53→21:06)
[2019-07-11 06:13] LABS: #Eosinphils 0.1 thou/uL (0.0-0.7); #Lymphocytes 2.6 thou/uL (1.20-3.40); #Monocytes 0.7 thou/uL (0.11-0.59); %Basophils 0.3 % (0.0-1.0); %Eosinophils 0.5 % (0.0-10.0); %Lymphocytes 22.5 % (21.0-51.0); %Monocytes 6.1 % (0.0-10.0); %Neutrophils 70.6 % (42.0-75.0); Mean Corpuscular HGB CONC 31.3 g/dL (32.0-36.0); Mean Corpuscular Hemoglobin 29.7 pg (27.0-31.0); Mean Corpuscular Volume 94.9 fL (78.0-98.0); Mean Platelet Volume 10.2 fL (7.4-10.4); Platelet Count 173 thou/uL (130-400); RBC Distribution Width 12.6 % (11.5-14.5); Red Blood Cell (RBC) Count 3.03 mill/uL (4.20-5.40); White Blood Cell (WBC) Count 11.4 thou/uL (4.8-10.8)
[2019-07-11 06:37] LABS: Anion Gap 15 mmol/L (10-20); BUN (Urea Nitrogen) 64 mg/dL (9.8-20.1); Calc. Creatinine Clearance 18 mL/min (70-130); Calcium 7.5 mg/dL (7.8-10.44); Carbon Dioxide 23 mmol/L (23-31); Chloride 105 mmol/L (98-107); Estimated GFR-MDRD 9; Glucose 171 mg/dL (83-110); Potassium 4.9 mmol/L (3.5-5.1); Sodium 138 mmol/L (136-145)
[2019-07-11] MEDS: Insulin Regular 300 UNITS/3 ML VIAL SC SCH ×3 (07:52→17:47)
--- NOTE | 2019-07-11 09:47 | PRG ---
DATE OF SERVICE: 07/11/2019 SERVICE: Renal Medicine. SUBJECTIVE: Ms. Lehman is a 74-year-old white female, followed up for her chronic renal failure. She had progressive azotemia during this hospitalization, and for that reason, we have initiated hemodialysis. No new complaints today. The patient is undergoing hemodialysis at the present time. I will attempt to do a 3-hour hemodialysis today. OBJECTIVE: VITAL SIGNS: Blood pressure 137/72, heart rate 80, respiratory rate 18, temperature 97.7, and O2 saturation 94% on room air. GENERAL: Awake, alert, and comfortable, not in distress. SKIN: Adequate turgor. HEENT: Slightly pale conjunctivae. Anicteric sclerae. NECK: No neck mass. No carotid bruits. No JVD. CHEST: No deformities. LUNGS: Decreased breath sounds. HEART: Normal sinus rhythm. No murmur. No gallops. No rubs. ABDOMEN: Globular, soft, and nontender. No masses. EXTREMITIES: No edema. MEDICATIONS: Medications of July 11, 2019 were reviewed. LABORATORY DATA: Laboratories of July 11, 2019; white count 11.4 and hemoglobin 9.0. Sodium 138, potassium 4.9, chloride 105, carbon dioxide 23, BUN 64, creatinine 4.75, glucose 171, and calcium 7.5. ASSESSMENT AND PLAN: 1. Chronic renal failure/end-stage renal disease, continue hemodialysis regimen. We will do a 3-hour hemodialysis with fluid removal only as tolerated. 2. Anemia. We are continuing weekly Epogen with this patient. 3. Shortness of breath, clinically improving, multifactorial etiology. Chronic obstructive pulmonary disease plus recent flu infection. Recheck base met. Recheck lab works as needed. Job ID: [id number]
[2019-07-11] MEDS ORDERED: Heparin 10,000 UNITS/ 10 ML VIAL ONE (11:57)
[2019-07-11] MEDS: Acyclovir 200 mg Capsule PO SCH ×2 (13:06→21:04)
[2019-07-11] MEDS: NIFEdipine XL 30 MG TAB PO SCH (13:07)
[2019-07-11] MEDS: Carvedilol 3.125 MG TAB PO SCH ×2 (13:08→19:54)
[2019-07-11] MEDS: Cefuroxime Axetil 250 MG TAB PO SCH ×2 (13:08→21:04)
[2019-07-11] MEDS: cloNIDine 0.1 MG TAB PO SCH ×2 (13:08→21:04)
[2019-07-11] MEDS: Aspirin Chewable 81 MG TAB PO SCH (13:09)
[2019-07-11] MEDS: Ferrous Sulfate 325 MG TAB PO SCH ×2 (13:09→17:47)
[2019-07-11] MEDS: predniSONE 20 MG TAB PO SCH (14:11)
--- NOTE | 2019-07-11 16:01 | PRG ---
DATE OF SERVICE: 07/11/2019 SUBJECTIVE: Marielle eLhman has no new complaints. She says she is back to her baseline. OBJECTIVE: VITAL SIGNS: Heart rate is in the 70s, blood pressure 147/75, respiratory rate is 20, oximetry is 94% on room air. LUNGS: Clear today. HEART: Regular rhythm. PLAN: She is tentatively on the schedule for dialysis access in the morning. Job ID: [id number]
--- NOTE | 2019-07-11 18:47 | PDOC.HOSPP ---
- Subjective Encounter Date: 07/11/19 Encounter Time: 14:00 Subjective: f/u for ESRD on current HD, s/p Influenza tx with Tamiflu. Feels better overall but some residual weakness. AV fistula placement planned for 07/12/19. - Objective Vital Signs & Weight: Vital Signs (12 hours) Temp Pulse Resp BP BP Pulse Ox 07/11/19 13:08 147/75 H 07/11/19 13:07 79 07/11/19 12:55 94 L 07/11/19 12:49 79 20 146/75 H 95 07/11/19 08:00 94 L 07/11/19 07:39 94 L 07/11/19 07:37 97.7 F 80 18 137/72 91 L 07/11/19 07:24 83 16 94 L Weight Admit Weight 245 lb 3.2 oz Weight 245 lb 3.2 oz I&O: 07/10/19 07/11/19 07/12/19 06:59 06:59 06:59 Intake Total 1180 530 Output Total 2600 Balance -1420 530 Result Diagrams: 07/11/19 05:50 07/11/19 05:50 Additional Labs: Accuchecks 07/11/19 07/11/19 07/11/19 16:07 12:51 05:56 POC Glucose 305 H 104 178 H 07/10/19 20:07 POC Glucose 358 H Hospitalist ROS - Medication Medications: Active Medications Generic Name Dose Route Start Last Admin Trade Name Freq PRN Reason Stop Dose Admin Acetaminophen 650 mg 06/30/19 09:38 07/09/19 00:49 Tylenol PO 650 mg Q4H PRN Administration Headache/Fever/Mild Pain (1-3) Acyclovir 200 mg 07/10/19 09:00 07/11/19 13:06 Zovirax PO 07/14/19 21:01 200 mg BID REJI Administration Albuterol/Ipratropium 3 ml 06/30/19 13:00 07/11/19 12:32 Duoneb NEB Not Given [id number] REJI Aspirin 81 mg 07/01/19 09:00 07/11/19 13:09 Aspirin Chewable PO 81 mg DAILY REJI Administration Atorvastatin Calcium 80 mg 06/30/19 21:00 07/10/19 20:40 Lipitor PO 80 mg HS REJI Administration Carvedilol 3.125 mg 06/30/19 17:00 07/11/19 13:08 Coreg PO 3.125 mg BID-WM REJI Administration Cefuroxime Axetil 250 mg 07/04/19 21:00 07/11/19 13:08 Ceftin PO 250 mg Q12HR REJI Administration Clonidine 0.1 mg 06/30/19 21:00 07/11/19 13:08 Catapres PO 0.1 mg BID REJI Administration Ezetimibe 10 mg 06/30/19 21:00 07/10/19 20:40 Zetia PO 10 mg 2100 REJI Administration Epoetin Lee-epbx 7,500 unit 07/01/19 10:00 07/08/19 10:00 Retacrit SC Not Given Q7D REJI Ferrous Sulfate 325 mg 07/01/19 17:00 07/11/19 13:09 Feosol PO 325 mg BID-WM REJI Administration Insulin Glargine 25 units/ 0.25 mls @ 0 mls/hr 07/07/19 21:00 07/10/19 20:40 Miscellaneous Medication SC 0.25 mls HS REJI Administration Insulin Human Lispro 0 units 06/30/19 09:38 07/11/19 05:53 Humalog SC 3 unit .AGGRESSIVE SLIDING PRN Administration Aggressive Correctional Scale Insulin Human Lispro 0 units 06/30/19 09:38 07/10/19 20:41 Humalog SC 5 unit .BEDTIME SLIDING SC PRN Administration Bedtime Correctional Scale Insulin Human Regular 8 units 07/04/19 12:00 07/11/19 15:25 Humulin R SC Not Given TID-WM REJI Isosorbide Mononitrate 60 mg 06/30/19 21:00 07/10/19 20:40 Imdur PO 60 mg HS REJI Administration Nifedipine 30 mg 07/01/19 09:00 07/11/19 13:07 Procardia Xl PO 30 mg DAILY REJI Administration Prednisone 20 mg 07/08/19 08:00 07/11/19 14:11 Prednisone PO 20 mg QAM-[facility] Administration Sodium Chloride 10 ml 06/30/19 09:00 07/11/19 14:11 Flush - Normal Saline IVF 10 ml Q12HR REJI Administration Sodium Chloride 10 ml 06/30/19 07:25 07/02/19 17:39 Flush - Normal Saline IVF 10 ml PRN PRN Administration Saline Flush - Exam General Appearance: NAD, awake alert Eye: PERRL, anicteric sclera ENT: normocephalic atraumatic, no oropharyngeal lesions Neck: supple, symmetric, no JVD, no thyromegaly Heart: RRR, no murmur, no gallops, no rubs, normal peripheral pulses Respiratory - other findings: few scattered rhonchi Gastrointestinal: soft, non-tender, non-distended, normal bowel sounds, no palpable masses Extremities: no cyanosis, no clubbing, 1+ LE edema Skin: normal turgor, no lesions Neurological: cranial nerve grossly intact, no new deficit Musculoskeletal: normal tone, generalized weakness Psychiatric: normal affect, A&O x 3 Hosp A/P (1) ESRD (end stage renal disease) on dialysis Code(s): N18.6 - END STAGE RENAL DISEASE; Z99.2 - DEPENDENCE ON RENAL DIALYSIS Status: Acute Plan: HD per Renal service, outpt coordination for HD (2) Influenza Code(s): J11.1 - FLU DUE TO UNIDENTIFIED INFLUENZA VIRUS W OTH RESP MANIFEST Status: Acute Plan: Completed Tamiflu course (3) Acute hypoxemic respiratory failure Code(s): J96.01 - ACUTE RESPIRATORY FAILURE WITH HYPOXIA Status: Acute Plan: Resolved (4) Sepsis due to pneumonia Code(s): J18.9 - PNEUMONIA, UNSPECIFIED ORGANISM; A41.9 - SEPSIS, UNSPECIFIED ORGANISM Status: Acute (5) DM type 2 (diabetes mellitus, type 2) Status: Chronic Qualifiers: Diabetes mellitus correction insulin use: with correction use Diabetes mellitus complication status: with kidney complications Diabetes mellitus complication detail: with chronic kidney disease Chronic kidney disease stage : stage 4 (severe) Qualified Code(s): E11.22 - Type 2 diabetes mellitus with diabetic chronic kidney disease; N18.4 - Chronic kidney disease, stage 4 (severe ); Z79.4 - termite helper (current) use of insulin - Plan continue antibiotics, PT/OT, social science analyst, respiratory therapy, out of bed/ ambulate Stable currently Completed Tamiflu Continue Ceftin 250mg BID Mucolytics PRN OOB/ambulate Plan for AV fistula 07/12/19 CM for coordination of outpt HD Likely home 07/13/19
[2019-07-11] MEDS: Atorvastatin Calcium 40 MG TAB PO SCH (21:04)
[2019-07-11] MEDS: Ezetimibe 10 MG TAB PO SCH (21:04)
[2019-07-11] MEDS: Insulin Glargine 25 UNITS in Pre-Filled Syringe 1 EACH SC SCH (21:04)
[2019-07-12] MEDS: HumaLOG 300 UNITS/3 ML VIAL SC PRN (06:07)
[2019-07-12] MEDS: Carvedilol 3.125 MG TAB PO SCH ×2 (06:08→17:26)
--- NOTE | 2019-07-12 09:05 | PRG ---
DATE OF SERVICE: 07/12/2019 SUBJECTIVE: Marielle Lehman is still having a cough today. It is more productive. OBJECTIVE: VITAL SIGNS: Temperature 97.4, heart rate 74, blood pressure 132/72. LUNGS: Clear. There is no wheezing. CARDIAC: Regular rate and rhythm without murmur or gallop. ABDOMEN: Soft and nontender. EXTREMITIES: Ecchymosis about the left AC. ASSESSMENT AND PLAN: End-stage renal disease. We will cancel her operation today, resume her diet, and plan operation on Thursday. Hopefully, she will be over her cough . Perhaps, it to be done as an outpatient later depending on her discharge planning. Job ID: [id number]
[2019-07-12] MEDS: Ferrous Sulfate 325 MG TAB PO SCH ×2 (09:19→17:26)
[2019-07-12] MEDS: predniSONE 20 MG TAB PO SCH (09:19)
[2019-07-12] MEDS: Aspirin Chewable 81 MG TAB PO SCH (09:19)
[2019-07-12] MEDS: Cefuroxime Axetil 250 MG TAB PO SCH (09:20)
[2019-07-12] MEDS: Acyclovir 200 mg Capsule PO SCH (09:20)
[2019-07-12] MEDS: cloNIDine 0.1 MG TAB PO SCH (09:20)
[2019-07-12] MEDS: NIFEdipine XL 30 MG TAB PO SCH (09:20)
[2019-07-12] MEDS: Insulin Regular 300 UNITS/3 ML VIAL SC SCH ×3 (09:21→17:26)
[2019-07-12] MEDS ORDERED: Apixaban 2.5 MG TAB PO SCH ×3 (10:45→21:00)
[2019-07-12 11:33] VITALS: TEMP 97.7
--- NOTE | 2019-07-12 16:16 | PRG ---
DATE OF SERVICE: 07/12/2019 SUBJECTIVE: Ms. Lehman is a 74-year-old white female with chronic renal failure/ESRD. Due to the progressive azotemia, hemodialysis has been initiated. She did undergo dialysis yesterday and she agreed to stay 3 hours. Significant fluid removal was done. No other complaints today. No chest pain or shortness of breath. She tells me leg edema is much better. OBJECTIVE: VITAL SIGNS: Blood pressure 118/69, heart rate 76, respiratory rate 20, temperature 97.7, pulse ox 95%. GENERAL: Awake, alert, comfortable, not in distress. SKIN: Adequate turgor. HEENT: She has a slightly pale conjunctivae. Anicteric sclerae. NECK: No neck mass. No carotid bruits. No JVD. CHEST: No deformities. LUNGS: Clear breath sounds. HEART: Normal sinus rhythm. No murmur. No gallops. No rubs. ABDOMEN: Globular, soft, and nontender. No masses. EXTREMITIES: Trace edema. MEDICATIONS: Medications of July 12, 2019 reviewed. LABORATORY DATA: Laboratories of July 11, 2019; hemoglobin 9. Sodium 138, potassium 4.9, chloride 105, carbon dioxide 23, BUN 64, creatinine 4.75, glucose 171, and calcium 7.5. ASSESSMENT AND PLAN: 1. End-stage renal disease/chronic renal failure, stable. No dialysis today. Next dialysis will be . Please note, the patient is for possible discharge tomorrow. When she is discharged, we will follow up at the outpatient dialysis clinic. 2. Anemia, continuing weekly Epogen and iron supplementation. Overall agree with current management. Job ID: [id number]
[2019-07-12 16:20] VITALS: BP 114/67
--- NOTE | 2019-07-12 17:34 | PRG ---
DATE OF SERVICE: 07/12/2019 SUBJECTIVE: Marielle Lehman is doing well. Her dialysis access was canceled, that will be rescheduled at a later date. She is stable to go home in my opinion. OBJECTIVE: VITAL SIGNS: She is afebrile, heart rate is in the 70s, respiratory rates in the teens, oximetry is 92% to 95% on room air, and blood pressure 114/67. LUNGS: Remarkable only for end-expiratory wheezes. IMPRESSION AND PLAN: 1. Asthma triggered by the flu, resolving. She can go home with steroid taper, continue with inhaled medications, and follow up with me in 2 to 3 weeks. 2. End-stage renal disease for later outpatient dialysis access. Job ID: [id number]
--- NOTE | 2019-07-13 02:45 | PQF ---
RHEA SIDDIQUI [place] MD [id number] CLINICAL DOCUMENTATION CLARIFICATION FORM: POST DISCHARGE Addendum to original discharge summary date: ____ Late entry note date: __ DATE: 07/13/2019 ATTN: Emre Oviedo Please exercise your independent, professional judgment in responding to the clarification form. Clinical indicators are provided on the bottom of this form for your review Please check appropriate box(s): Etiology or underlying conditions related to the diagnosis of ARF/ DEVAUGHN: [ ] Sepsis [ ] Prerenal Azotemia [ x ] Worsening Chronic Renal Failure [ ] Other: In addition, please specify: Present on Admission (POA): [ x ] Yes [ ] No [ ] Unable to determine National Kidney Foundation Guidelines for CKD Staging Stage I Kidney damage with normal or increased GFRGFR > 90 Stage IIKidney damage with mildly decreased GFRGFR 60-89 Stage III Kidney damage with moderately decreased GFRGFR 30-59 Stage IVKidney damage with severely decreased GFRGFR 16-29 Stage VKidney failureGFR<15 ESRDEnd Stage Renal Disease On dialysis Acute Renal Failure/Acute Kidney Failure defined as: Increases in SCr by (>) 0.3 mg/dl within 48 hours OR- Increases in SCr by (>) 1.5 times baseline, known or presumed to have occurred within the prior 7 days OR- Urine volume < 0.5 ml/kg/hour for 6 hours (KDIGO supplement 2012 for RIFLE/BEL criteria) For continuity of documentation, please document condition throughout progress notes and discharge summary. Thank You. CLINICAL INDICATORS - SIGNS / SYMPTOMS / LABS Laboratory Chemistry 06/29 BUN 31, Creatinine 1.82, Estimated GFR 27 Laboratory Chemistry 06/30 BUN 49, Creatinine 3.79, Estimated GFR 12 Nephrology Consult p1 06/30 Dr Nevarez We are now being consulted for Acute kidney injury on top of her chronic renal failure Nephrology Consult p3 06/30 Dr Nevarez Acute kidney injury / Chronic renal failure, I suspect superimposed prerenal azotemia as suggested by history of decreased p.o intake, fever Hospitalist PN p6 07/01 Dr Calhoun Sepsis with organ dysfunction of Acute renal failure RISK FACTORS H&P p1 06/30 74 year olf female H&P p1 06/30 Sepsis H&P p1 06/30 Acute kidney injury H&P p1 06/30 history of DM type 2 H&P p1 06/30 s/p Nephrectomy H&P p1 06/30 History of CKD 3 TREATMENTS: AUG 06 IV Rocephin AUG 06 IV Ceftriaxone AUG 06 IV Albumin Nephrology Consult 06/30 Dr Nevarez Emre Nephrology Consult p3 06/30 Hold off Diuretics H&P p3 06/30 Gently hydrate with Half normal saline 70ml/hr Renal panel 07/08 - Hemodialysis (This form is maintained as a part of the permanent medical record) 2014 [employer]. All Rights Reserved [email or web address]
--- NOTE | 2019-07-13 05:52 | DIS ---
DATE OF ADMISSION: 06/29/2019 DATE OF DISCHARGE: 07/12/2019 DISCHARGE DIAGNOSES: 1. End-stage renal disease with initiation of hemodialysis. 2. Influenza, completed treatment course with Tamiflu. 3. Acute hypoxic respiratory failure secondary to #2, resolved. 4. Sepsis due to suspected gram-positive cocci bacterial pneumonia, resolving. 5. Diabetes mellitus, type 2, insulin requiring, labile, due to prednisone. CONSULTATIONS: 1. Dr. Shepard with Pulmonology Service. 2. Dr. Nevarez with Nephrology Service. 3. Dr. Broussard with General Surgery Service. PERTINENT LABORATORY AND X-RAY FINDINGS: Potassium ranged between 2.3 to 5.7. Creatinine ranged between 1.82 to 4.83. Estimated GFR ranged between 9 to 27. Lactic acid level 0.6. CBC showed a white blood cell count ranged between 6.2 to 12.9, hemoglobin ranged between 8.9 to 10.7. Hepatitis B and C panel negative, 07/05/2019. Blood cultures x2, dated 06/29/2019, showed no growth at 5 days. Respiratory culture dated 06/30/2019, showed moderate normal respiratory [place]. Urine culture dated 06/30/2019, showed no growth at 48 hours. Portable chest x-ray dated 06/29/2019, showed chronic changes bilaterally. Portable chest x-ray dated 07/06/2019, showed right-sided hemodialysis catheter in appropriate positioning. HOSPITAL COURSE: The patient was initially admitted after presenting with persistent shortness of breath and fever up to 103 degrees Fahrenheit with associated productive cough. The patient underwent extensive evaluation including chest imaging showing chronic changes in bilateral lung lee without dominant infiltrate. The patient initially met sepsis criteria and was placed on broad-spectrum IV antibiotic therapy with Rocephin and initiated on Tamiflu after influenza nasal swab was positive. The patient completed a complete course of Tamiflu during her hospital course in addition to IV antibiotics, transitioning to Ceftin. The patient received bronchodilator therapy in addition to IV Solu-Medrol due to history of chronic obstructive pulmonary disease. The patient was monitored by the Pulmonology Service during her hospital course with overall improvement and pulmonary status after treatment with IV antibiotics and Tamiflu. The patient was also monitored for acute kidney injury, progressing to end-stage renal disease, initiated on hemodialysis during the hospital course. The patient was evaluated by the Nephrology Service with serial monitoring of renal function showing declining values from the time of admission. The patient underwent placement of a tunneled right-sided hemodialysis catheter and initiated on hemodialysis with multiple sessions completed during the hospital stay. The patient was evaluated for potential AV fistula placement, but it was precluded, and placement due to recent pneumonia and influenza. Overall, the patient did remain clinically stable during the hospital course and tolerated regular oral intake with stable vital signs. I have examined the patient at the time of discharge and discussed followup instructions. The patient verbalized understanding and agreement, ready for discharge on 07/12/2019. DISCHARGE MEDICATIONS: 1. Aspirin 81 mg p.o. daily. 2. Lipitor 80 mg p.o. daily. 3. Coreg 3.125 mg p.o. b.i.d. 4. Clonidine 0.1 mg p.o. b.i.d. 5. Lantus 50 units subcutaneously at bedtime. 6. Humalog subcutaneously t.i.d. with meals, sliding scale. 7. Nitroglycerin 0.4 mg sublingually q.5 minutes p.r.n. chest pain. 8. Zovirax 200 mg p.o. b.i.d. 9. Eliquis 2.5 mg p.o. b.i.d. 10. Ceftin 250 mg p.o. b.i.d. x5 days. 11. Zetia 10 mg p.o. at bedtime. 12. Lasix discontinued. 13. Imdur 60 mg p.o. at bedtime. 14. Nifedipine XL 30 mg p.o. daily. 15. Prednisone 20 mg p.o. daily x3 days, followed by half a tablet p.o. daily x3 days. FOLLOWUP: The patient may follow up with her primary care provider, Dr. Salo Bradshaw, within 7 days of discharge. The patient will follow up with Dr. Adolfo Broussard within 2 weeks of discharge for consideration of AV fistula placement. The patient will follow up with Dr. Nevarez with Nephrology Service. Follow up with [facility] on 07/14/2019 at 1:30 p.m. CONDITION ON DISCHARGE: Fair. ACTIVITY: Ad-sachi. DIET: ADA, heart healthy, and renal. CODE STATUS: Full. DISPOSITION: Home on 07/12/2019. TIME SPENT: Total time preparing and coordinating discharge, 33 minutes. Job ID: [id number]
== END 2019-07-12 18:19 | disposition home or self-care (01) | DRG 673 ==
LOC: ERS 17:45 → T4-B 22:06
PROVIDERS: ADMIT Emergency Medicine; ATTEND Emergency Medicine
PROC: 02HV33Z Insertion of Infusion Device into Superior Vena Cava, Percutaneous Approach (ICD-10-PCS; 2019-07-06)
PROC: B548ZZA Ultrasonography of Superior Vena Cava, Guidance (ICD-10-PCS; 2019-07-06)
PROC: 0JH63XZ Insertion of Tunneled Vascular Access Device into Chest Subcutaneous Tissue and Fascia, Percutaneous Approach (ICD-10-PCS; 2019-07-06)
PROC: 02HV33Z Insertion of Infusion Device into Superior Vena Cava, Percutaneous Approach (ICD-10-PCS; 2019-07-06)
PROC: 5A1D70Z Performance of Urinary Filtration, Intermittent, Less than 6 Hours Per Day (ICD-10-PCS; principal; 2019-07-08)
DX: N17.9 Acute kidney failure, unspecified (principal); A41.9 Sepsis, unspecified organism; I50.33 Acute on chronic diastolic (congestive) heart failure; J96.01 Acute respiratory failure with hypoxia; J10.00 Influenza due to other identified influenza virus with unspecified type of pneumonia; R65.20 Severe sepsis without septic shock; J44.1 Chronic obstructive pulmonary disease with (acute) exacerbation; B37.0 Candidal stomatitis; J45.901 Unspecified asthma with (acute) exacerbation; I13.2 Hypertensive heart and chronic kidney disease with heart failure and with stage 5 chronic kidney disease, or end stage renal disease; J44.0 Chronic obstructive pulmonary disease with (acute) lower respiratory infection; N18.6 End stage renal disease; E87.6 Hypokalemia; E83.51 Hypocalcemia; E11.22 Type 2 diabetes mellitus with diabetic chronic kidney disease; E78.5 Hyperlipidemia, unspecified; G47.33 Obstructive sleep apnea (adult) (pediatric); D63.1 Anemia in chronic kidney disease; E87.5 Hyperkalemia; K21.9 Gastro-esophageal reflux disease without esophagitis; I48.91 Unspecified atrial fibrillation; E66.01 Morbid (severe) obesity due to excess calories; B00.1 Herpesviral vesicular dermatitis; I25.10 Atherosclerotic heart disease of native coronary artery without angina pectoris; Z85.42 Personal history of malignant neoplasm of other parts of uterus; Z85.41 Personal history of malignant neoplasm of cervix uteri; Z90.5 Acquired absence of kidney; Z95.1 Presence of aortocoronary bypass graft; Z85.3 Personal history of malignant neoplasm of breast; Z88.5 Allergy status to narcotic agent; Z90.710 Acquired absence of both cervix and uterus; Z68.39 Body mass index [BMI] 39.0-39.9, adult; Z79.899 Other long term (current) drug therapy; Z79.4 Long term (current) use of insulin; Z79.82 Long term (current) use of aspirin
CPT/HCPCS: 36415; 36416; 71045; 80048; 80053; 80069; 81001; 83605; 84484; 85025; 86580; 86704; 86706; 86803; 87040; 87070; 87086; 87205; 87340; 90935; 93005; 93970; 94640; 96361; 96365; 96366; 96375; 99213; C1752; G0257; G0365; G0463; J0456; J0696; J1644; J1815; J1940; J2001; J2704; J2720; J2920; J3490; J7512; J7620; P9047; Q0163; Q5105; S0020

== ENCOUNTER 2019-08-24 06:20 | Day surgery (SDC) | payer MEDICARE ==
[2019-08-23 10:53] VITALS: BMI 37.1
--- NOTE | 2019-08-23 10:54 | HP ---
HISTORY OF PRESENT ILLNESS: Marielle Lehman is a 74-year-old female, end-stage renal disease, dialyzes at [facility], Thursday, , Thursday. She lives at home alone. Her son drives her to appointments. She does not drive. I saw her in the hospital and established dialysis access with intention to place a left arm fistula, but continued coughing from the flu procrastinated this. Plan is now to perform a left arm fistula outpatient, [facility]. She understands risks and benefits, consents. MEDICATIONS: 1. Atorvastatin. 2. Clonidine. 3. Nitroglycerin. 4. Nifedipine. 5. Furosemide. 6. Carvedilol. 7. Isosorbide. 8. Eliquis. 9. Aspirin. ALLERGIES: CODEINE AND MORPHINE, CONFUSION. PAST SURGICAL HISTORY: Mastectomy more than 15 years ago, radiation to the left chest wall post mastectomy, laparotomy for hysterectomy, suffered a ureteral injury requiring extension to her upper abdomen with repair of her ureter. She states she was in the hospital for 3 to 4 weeks after that, appendectomy, history of right nephrectomy, coronary artery bypass grafting, three vessels. PAST MEDICAL HISTORY: Recent flu symptoms, atrial fibrillation, on Eliquis, diabetes mellitus type 2, metabolic syndrome, morbid obesity, history of left breast cancer, history of right nephrectomy, lumbar surgery. PHYSICAL EXAMINATION: VITAL SIGNS: Weight 242 pounds, height 66 inches, blood pressure 106/78, pulse 97, temperature 98.1 degrees. HEAD, EARS, EYES, NOSE, AND THROAT: Unremarkable. LUNGS: Clear to auscultation. CARDIAC: Irregularly irregular. ABDOMEN: Soft, obese, nontender. Palpable radial pulses bilaterally. No ankle edema. Dialysis catheter right IJ. ASSESSMENT AND PLAN: End-stage renal disease. PLAN: 1. Placement of left arm primary arteriovenous fistula. She understands risks and benefits, consents. 2. On Eliquis, hold for 2 days prior to surgery. Job ID: [id number]
[2019-08-24] MEDS ORDERED: Midazolam HCl 2 mg/2 ml Vial ONE ×2 (06:49→07:52)
[2019-08-24] MEDS ORDERED: Fentanyl 100 MCG/2 ML VIAL ONE ×3 (06:49→10:37)
[2019-08-24 07:08] LABS: #Eosinphils 0.2 thou/uL (0.0-0.7); #Lymphocytes 3.6 thou/uL (1.20-3.40); #Monocytes 1.1 thou/uL (0.11-0.59); #Neutrophils 6.1 thou/uL (1.40-6.50); %Basophils 0.4 % (0.0-1.0); %Eosinophils 1.8 % (0.0-10.0); %Lymphocytes 32.5 % (21.0-51.0); %Monocytes 9.5 % (0.0-10.0); %Neutrophils 55.8 % (42.0-75.0); Hemoglobin 12.1 g/dL (12.0-16.0); Mean Corpuscular HGB CONC 33.3 g/dL (32.0-36.0); Mean Corpuscular Hemoglobin 31.2 pg (27.0-31.0); Mean Corpuscular Volume 93.8 fL (78.0-98.0); Mean Platelet Volume 10.2 fL (7.4-10.4); Platelet Count 214 thou/uL (130-400); RBC Distribution Width 13.2 % (11.5-14.5); Red Blood Cell (RBC) Count 3.88 mill/uL (4.20-5.40)
[2019-08-24 07:31] LABS: Anion Gap 13 mmol/L (10-20); BUN (Urea Nitrogen) 32 mg/dL (9.8-20.1); Calc. Creatinine Clearance 20 mL/min (70-130); Calcium 9.1 mg/dL (7.8-10.44); Carbon Dioxide 30 mmol/L (23-31); Chloride 99 mmol/L (98-107); Estimated GFR-MDRD 10; Glucose 217 mg/dL (83-110); Potassium 3.2 mmol/L (3.5-5.1); Sodium 139 mmol/L (136-145)
[2019-08-24] MEDS ORDERED: Lidocaine 1% w/Epinephrine 1:100K 20 ML VIAL ONE (08:28)
[2019-08-24] MEDS ORDERED: Protamine Sulfate 50 MG/5 ML VIAL ONE (08:28)
[2019-08-24] MEDS ORDERED: Heparin 5,000 UNITS/ML VIAL ONE (08:28)
[2019-08-24] MEDS ORDERED: Bupivacaine PF 0.5% 30 ML VIAL ONE (08:28)
[2019-08-24] MEDS ORDERED: CEFAZOLIN 1 GM VIAL ONE (08:48)
[2019-08-24] MEDS ORDERED: Succinylcholine Chloride 20 MG/ML 10 ml SYRINGE FS ONE (09:55)
[2019-08-24] MEDS ORDERED: Ondansetron PF 4 MG/2 ML Vial ONE (09:55)
[2019-08-24] MEDS ORDERED: Metoclopramide HCl 10 MG/2 ML VIAL ONE (09:55)
[2019-08-24] MEDS ORDERED: PHENYLEPHRINE-NS 100 MCG/ML 10 ML SYRINGE ONE (09:55)
[2019-08-24] MEDS ORDERED: Lidocaine 1% PF 5 ML VIAL ONE (09:55)
[2019-08-24] MEDS ORDERED: EPHEDRINE 25 MG/5 ML SYRINGE ONE (09:55)
[2019-08-24] MEDS ORDERED: PROPOFOL 200 MG/20 ML VIAL ONE (09:55)
--- NOTE | 2019-08-24 10:40 | OP ---
DATE OF PROCEDURE: 08/24/2019 PREOPERATIVE DIAGNOSES: End-stage renal disease, chronic obstructive pulmonary disease. POSTOPERATIVE DIAGNOSES: End-stage renal disease, chronic obstructive pulmonary disease. PROCEDURE PERFORMED: Left arm primary fistula, proximal radial artery inflow, outflow cephalic vein only without communication to the basilic vein, retrograde antecubital vein preserved, 4 mm coronary dilator outflow. ANESTHESIA: General, local 0.5% Marcaine 30 mL mixed with 1% Xylocaine with epinephrine 20 mL. DESCRIPTION OF PROCEDURE: The patient was taken to the operating room, where under general anesthesia, the left upper extremity was prepared with ChloraPrep and draped in routine fashion. Longitudinal incision made below the antecubital fossa, carried down through skin and subcutaneous tissue. Then the antecubital vein identified and the patient was given 6000 units of heparin intravenously, as the proximal radial artery, brachial and ulnar artery dissected free and perforating branch antecubital vein dissected free, dividing branch between 4-0 silk ties and clips, spatulating over branch points and interrogated with coronary dilators, passing coronary dilators from 2 mm to 4 mm coronary dilator out the cephalic vein outflow without obstruction. It was flushed with heparinized saline solution. Atraumatic vascular clamps placed on the brachial, ulnar, and proximal radial artery, and longitudinal arteriotomy was made sharply, elongated with Hanley scissors, in the end, perforating branch to the antecubital vein anastomosed to the proximal radial artery with continuous suture of 6-0 Prolene, completing the anastomosis, given 25 mg of protamine intravenously administered by Anesthesia. Good Doppler signal noted in the cephalic vein outflow. Good hemostasis noted. Subcutaneous tissue was approximated with 3-0 Monocryl, skin with subdermal 4-0 Monocryl and [place] glue applied. The patient tolerated the procedure well. Job ID: [id number]
[2019-08-24] MEDS ORDERED: HYDROcodone/Acetaminophen 5/325 mg Tablet ONE (12:10)
[2019-08-24] MEDS ORDERED: Heparin 10,000 UNITS/ 10 ML VIAL ONE (12:52)
== END 2019-08-24 13:18 | disposition home or self-care (01) ==
LOC: SDC 06:20
PROVIDERS: ATTEND Specialist
PROC: 031C0ZF Bypass Left Radial Artery to Lower Arm Vein, Open Approach (ICD-10-PCS; principal; 2019-08-24)
DX: I13.2 Hypertensive heart and chronic kidney disease with heart failure and with stage 5 chronic kidney disease, or end stage renal disease (principal); E11.22 Type 2 diabetes mellitus with diabetic chronic kidney disease; N18.6 End stage renal disease; I50.32 Chronic diastolic (congestive) heart failure; D63.1 Anemia in chronic kidney disease; I48.91 Unspecified atrial fibrillation; E88.81 Metabolic syndrome and other insulin resistance; I25.10 Atherosclerotic heart disease of native coronary artery without angina pectoris; J44.9 Chronic obstructive pulmonary disease, unspecified; M19.90 Unspecified osteoarthritis, unspecified site; E78.00 Pure hypercholesterolemia, unspecified; E66.01 Morbid (severe) obesity due to excess calories; Z68.37 Body mass index [BMI] 37.0-37.9, adult; Z79.01 Long term (current) use of anticoagulants; Z79.4 Long term (current) use of insulin; Z79.82 Long term (current) use of aspirin; Z79.899 Other long term (current) drug therapy; Z88.5 Allergy status to narcotic agent; Z90.5 Acquired absence of kidney; Z95.1 Presence of aortocoronary bypass graft; Z99.2 Dependence on renal dialysis
CPT/HCPCS: 36416; 80048; 85025; 93005; 93010; J0690; J1644; J2001; J2250; J2405; J2704; J2720; J2765; J3010; S0020

== ENCOUNTER 2020-05-25 12:17 | Inpatient (IN) | payer MEDICARE ==
[2020-05-25 13:35] LABS: Mean Corpuscular HGB CONC 33.8 g/dL (32.0-36.0); Mean Corpuscular Hemoglobin 33.5 pg (27.0-31.0); Mean Corpuscular Volume 99.2 fL (78.0-98.0); RBC Distribution Width 13.6 % (11.5-14.5); Red Blood Cell (RBC) Count 3.87 mill/uL (4.20-5.40); White Blood Cell (WBC) Count 4.5 thou/uL (4.8-10.8)
[2020-05-25 13:39] LABS: Phosphorus 4.1 mg/dL (2.3-4.7)
[2020-05-25 13:41] LABS: ALT (SGPT) 25 U/L (8-55); AST (SGOT) 35 U/L (5-34); Albumin 3.4 g/dL (3.4-4.8); Alkaline Phosphatase 104 U/L (40-110); Anion Gap 18 mmol/L (10-20); BUN (Urea Nitrogen) 31 mg/dL (9.8-20.1); Bilirubin, Total 0.4 mg/dL (0.2-1.2); Calc. Creatinine Clearance 0 mL/min (70-130); Calcium 8.3 mg/dL (7.8-10.44); Carbon Dioxide 28 mmol/L (23-31); Chloride 95 mmol/L (98-107); Globulin 4.2 g/dL (2.4-3.5); Glucose 257 mg/dL (83-110); Magnesium 1.8 mg/dL (1.6-2.6); Potassium 4.4 mmol/L (3.5-5.1); Protein, Total 7.6 g/dL (6.0-8.3); Sodium 137 mmol/L (136-145)
[2020-05-25 14:05] LABS: Band 40 % (5-11); Lymphocytes 27 % (21-51); MDiff Complete? YES; Mean Platelet Volume 10.3 fL (7.4-10.4); Monocytes 10 % (0-10); Neutrophil 20 % (42-75); Platelet Count 103 thou/uL (130-400); Platelet Morphology Comment Appears Decreased; Polychromasia SLIGHT = 2-3 cells (100X) (0-2/hpf); Reactive Lymphocytes 3 % (0-10)
[2020-05-25 14:09] LABS: CKMB 1.1 ng/mL (0-6.6)
--- NOTE | 2020-05-25 14:51 | RAD ---
XR Chest 1 View Portable HISTORY: Shortness of breath COMPARISON: 07/06/2019 FINDINGS: Changes of median sternotomy are again seen. The heart is enlarged. The aorta is tortuous. No lobar consolidation, pneumothoraces, irving pulmonary edema or large effusions are seen. There is mild prominence of the pulmonary vascularity.
[2020-05-25 15:40] LABS: Bacteria/HPF Rare-Few HPF (None Seen); Bilirubin Negative (Negative); Blood, Urine Trace (Negative); Clarity Turbid (Clear); Glucose, Urine (Dipstick) Greater than 1000 mg/dL (Negative); Ketone, Urine Negative (Negative); Leukocyte Negative Leu/uL (Negative); Nitrite Negative (Negative); Protein, Urine (Dipstick) 600 mg/dL (Neg-Trace); RBC/HPF 0-3 HPF (0-3); Specific Gravity, Urine 1.014 (1.002-1.036); Urobilinogen Normal mg/dL (Less than 2)
[2020-05-25] MEDS ORDERED: Cefepime 2 GM VIAL ONE (16:10)
[2020-05-25] MEDS ORDERED: Vancomycin 1 GM/200 ML BAG ONE (16:49)
[2020-05-25] MEDS ORDERED: Acetaminophen 500 MG TAB ONE (16:50)
[2020-05-25] MEDS ORDERED: Ondansetron PF 4 MG/2 ML Vial ONE (16:56)
[2020-05-25] MEDS ORDERED: hydrALAZINE 20 MG/ML VIAL SLOW IVP PRN (19:15)
[2020-05-25] MEDS ORDERED: Labetalol HCl 100 MG/20 ML VIAL SLOW IVP PRN (19:15)
[2020-05-25] MEDS ORDERED: Dextrose 5% in Water 1,000 ML IV PRN (19:15)
[2020-05-25] MEDS ORDERED: Ondansetron PF 4 MG/2 ML Vial IVP PRN (19:15)
[2020-05-25] MEDS ORDERED: Vancomycin HCl 1 GM in Sodium Chloride 0.9% 250 ML 300 ML IVPB SCH (19:15)
[2020-05-25] MEDS ORDERED: Cepastat Lozenges 1 LOZ PO PRN (19:15)
[2020-05-25] MEDS ORDERED: Ondansetron ODT 4 MG TAB PO PRN (19:15)
[2020-05-25] MEDS: Sodium Chloride 0.9% 1,000 ML IV SCH (20:51)
[2020-05-25] MEDS: Apixaban 2.5 MG TAB PO SCH (20:54)
[2020-05-25] MEDS ORDERED: Famotidine 20 MG TAB PO SCH (21:00)
[2020-05-25] MEDS: HumaLOG 300 UNITS/3 ML VIAL SC PRN (21:23)
[2020-05-25] MEDS ORDERED: Vancomycin HCl 1.5 GM in Sodium Chloride 0.9% 250 ML 300 ML IVPB SCH (23:15)
[2020-05-25] MEDS ORDERED: Vancomycin 1 GM in Premix Bag 1 BAG IVPB SCH (23:15)
[2020-05-25] MEDS ORDERED: HOLD VANCOMYCIN FOR LEVEL >20 FS SCH (23:15)
[2020-05-25] MEDS ORDERED: Vancomycin HCl 1.25 GM in Sodium Chloride 0.9% 250 ML 250 ML IVPB SCH (23:15)
[2020-05-25] MEDS ORDERED: Vancomycin HCl 750 MG in Sodium Chloride 0.9% 250 ML 250 ML IVPB SCH (23:15)
[2020-05-25] MEDS ORDERED: Vancomycin 1.5 GRAM/300 ML BAG 1.5 GM in Premix Bag 1 BAG IVPB SCH (23:59)
--- NOTE | 2020-05-26 00:40 | HP ---
PRIMARY CARE PROVIDER: Dr. Tim Bradshaw. PRIMARY BLOOD DONOR UNIT ASSISTANT: Dr. Emre Nevarez. CHIEF COMPLAINT: Shaking. HISTORY OF PRESENT ILLNESS: This is a 75-year-old female, who presents to [facility] Emergency Department complaining of severe shaking of her extremities over the last week, worsening in the last 24 hours. The patient states she was undergoing her regular hemodialysis session when the shaking was uncontrollable and she was unable to complete her hemodialysis. The patient states she had some mild cough, congestion, and questionable chills, but no documented fever. The patient denied any known sick contacts; however, states she does attend hemodialysis 3 times per week. The patient denied any change to her chronic medication regimen, but states her primary care provider had called in a cough medicine for her, which she has not filled. The patient states the shaking becomes so severe that it causes her to be short of breath. The patient denied any increased swelling or unilateral swelling of the lower extremities. The patient denied any recent fall or injury. The patient does state that she has a history of pneumonia recently treated in July 2019 for influenza with associated pneumonia, completing Tamiflu. The patient states she received influenza vaccination for this season, but no other recent vaccinations. In the emergency room, the patient underwent general evaluation with vital signs showing tachypnea as well as tachycardia. Metabolic survey showed a bandemia of 40% at which point, the patient received vancomycin and cefepime empirically after concern for an occult sepsis. Chest imaging showed pulmonary vascular congestion, however, no specific focal infectious process was identified. PAST MEDICAL HISTORY: 1. Coronary artery disease. 2. Status post myocardial infarction. 3. Diabetes mellitus type 2, insulin requiring with end-stage renal disease, on hemodialysis. 4. Breast cancer, status post left mastectomy. 5. Chronic obstructive pulmonary disease. 6. Hyperlipidemia. 7. Chronic atrial fibrillation with chronic anticoagulation with Eliquis. PAST SURGICAL HISTORY: 1. Status post left mastectomy. 2. Status post laparotomy for hysterectomy. 3. Status post AV fistula placement. 4. Status post appendectomy. 5. Status post right nephrectomy. 6. Status post coronary artery bypass grafting x3 vessels. CURRENT MEDICATIONS: 1. Enteric-coated aspirin 81 mg p.o. daily. 2. Calcitriol 0.25 mcg p.o. daily. 3. Carvedilol 3.125 mg p.o. b.i.d. 4. Lispro t.i.d. with meals. 5. Lantus 50 units subcutaneously at bedtime. 6. Lipitor 80 mg p.o. daily. 7. Zetia 10 mg p.o. at bedtime. 8. Nitroglycerin 0.4 mg sublingually q.5 minutes p.r.n. chest pain. 9. Eliquis 2.5 mg p.o. b.i.d. 10. Isosorbide mononitrate 60 mg p.o. at bedtime. 11. Procardia XL 30 mg p.o. daily. ALLERGIES: TO CODEINE AND MORPHINE SULFATE. FAMILY HISTORY: Positive for hypertension, diabetes, and coronary artery disease. SOCIAL HISTORY: Resides in [place], [place]. Disabled. No current alcohol, tobacco, or illicit drug use. REVIEW OF SYSTEMS: CONSTITUTIONAL: Negative for weight loss or gain, ability to conduct usual activities. SKIN: Negative for rash, itching. EYES: Negative for double vision, pain. ENT/MOUTH: Negative for nose bleeding, neck stiffness, pain, tenderness. CARDIOVASCULAR: Negative for palpitations, dyspnea on exertion, orthopnea. RESPIRATORY: Negative for shortness of breath, wheezing, cough, hemoptysis, fever or night sweats. GASTROINTESTINAL: Negative for poor appetite, abdominal pain, heartburn, nausea, vomiting, constipation, or diarrhea. GENITOURINARY: Negative for urgency, frequency, dysuria, nocturia. MUSCULOSKELETAL: Negative for pain, swelling. NEUROLOGIC/PSYCHIATRIC: Negative for anxiety, depression. ALLERGY/IMMUNOLOGIC: Negative for skin rash, bleeding tendency. Otherwise, negative except as stated per HPI. PHYSICAL EXAMINATION: VITAL SIGNS: On admission, blood pressure 136/92, pulse 108, respiratory rate 32, temperature 98.9 degrees Fahrenheit, and O2 saturation 98% on room air. GENERAL APPEARANCE: This is a 75-year-old female, alert and oriented x3, pleasant, responsive, in mild distress. HEENT: Pupils are equal, round, reactive to light and accommodation. Extraocular muscles are intact. No scleral icterus. No conjunctival injection. Nares are patent. OP is clear. Teeth in fair repair. NECK: Supple. No cervical adenopathy. No thyromegaly. No carotid bruits. No JVD appreciated. Cervical spine with full active and passive range of motion. No meningeal signs noted. CHEST: Diminished breath sounds in the bases bilaterally with tachypnea. CARDIOVASCULAR: S1 and S2 with tachycardia, irregular rate and rhythm. ABDOMEN: Rounded, soft, nontender, and nondistended. Bowel sounds are positive in all 4 quadrants. There is no hepatosplenomegaly. No abdominal bruits. No rebound or guarding appreciated. EXTREMITIES: Warm and dry with fair turgor. No clubbing, cyanosis, or asymmetric edema appreciated. Pulses are palpable distally at the dorsalis pedis, posterior tibial, and popliteal arteries bilaterally. Capillary refill is less than 2 seconds. NEUROLOGIC: Cranial nerves II through XII are grossly intact. Rhythmic shaking of bilateral upper extremities noted. No shaking of the lower extremities during this exam. Not observed ambulatory during this exam. PERTINENT LABORATORY AND X-RAY FINDINGS: Sodium 137, potassium 4.4, chloride 95, CO2 of 28, BUN 31, creatinine 4.46, estimated GFR of 10, glucose 257. Lactic acid level 1.3, calcium 8.3, phosphorus 4.1, magnesium level 1.8, AST 35, ALT of 25, alkaline phosphatase 104. Troponin-I 0.080. CBC showed a white blood cell count of 4.5, hemoglobin 13, hematocrit 38, MCV 99, platelet count 103 with 20% neutrophils, 40% bandemia. Urinalysis, positive protein and glucose. Portable chest x-ray dated on 05/25/2020 shows mild prominence of pulmonary vasculature. EKG dated on 05/25/2020, by my interpretation shows atrial fibrillation with rates in the 90s. Right bundle-branch block pattern noted. Left axis deviation. Premature ventricular contractions noted. ASSESSMENT/PLAN: 1. Sepsis. Unclear etiology or focal findings. We will continue empiric coverage with cefepime 2 g IV q.8 hours with additional vancomycin 1 g IV q.48 hours. Blood and urine cultures pending. Continue general supportive management. Intravenous normal saline at 50 mL/h. COVID-19 pending. 2. End-stage renal disease with hemodialysis. Consult Nephrology Service for timing of next hemodialysis session. No current evidence of clinical volume overload. 3. Dyspnea. Suspect secondarily to no prominent or obvious evidence of pneumonia. COVID-19 PCR pending. Continue oxygen as needed to keep O2 saturations greater than or equal to 90%. 4. Hypertension. Labile, p.r.n. hydralazine and labetalol. Resume home blood pressure regimen when home blood pressure regimen confirmed. 5. Diabetes mellitus type 2, insulin requiring. Insulin sliding scale for reflexive coverage. ADA diet when tolerating p.o. intake. Serial Accu-Cheks before meals and at bedtime. 6. Prophylaxis. SCDs while in bed. Pepcid 20 mg p.o. b.i.d. Isolation protocol pending COVID-19 PCR. CODE STATUS: Full. Surrogate medical decision maker is patient's son. Job ID: [id number]
[2020-05-26 02:04] LABS: SARS-CoV-2 N Gene Positive; SARS-CoV-2 S Gene Positive; SARS-CoV-2 by NAA DETECTED (NotDetected); SARS-CoV-2 orf1ab Positive
[2020-05-26 02:05] LABS: SARS-CoV-2 MS2 Negative
[2020-05-26] MEDS: HumaLOG 300 UNITS/3 ML VIAL SC PRN ×4 (05:01→20:57)
[2020-05-26 06:23] LABS: ALT (SGPT) 26 U/L (8-55); AST (SGOT) 36 U/L (5-34); Alkaline Phosphatase 83 U/L (40-110); Anion Gap 18 mmol/L (10-20); BUN (Urea Nitrogen) 41 mg/dL (9.8-20.1); Bilirubin, Total 0.3 mg/dL (0.2-1.2); Calc. Creatinine Clearance 14 mL/min (70-130); Calcium 7.6 mg/dL (7.8-10.44); Carbon Dioxide 27 mmol/L (23-31); Chloride 95 mmol/L (98-107); Globulin 3.3 g/dL (2.4-3.5); Glucose 140 mg/dL (83-110); Potassium 4.1 mmol/L (3.5-5.1); Protein, Total 6.3 g/dL (6.0-8.3); Sodium 136 mmol/L (136-145)
[2020-05-26 06:48] LABS: Hemoglobin 11.6 g/dL (12.0-16.0); Mean Corpuscular HGB CONC 32.5 g/dL (32.0-36.0); Mean Corpuscular Hemoglobin 32.7 pg (27.0-31.0); Mean Platelet Volume 10.7 fL (7.4-10.4); Platelet Count 88 thou/uL (130-400); RBC Distribution Width 13.4 % (11.5-14.5); Red Blood Cell (RBC) Count 3.56 mill/uL (4.20-5.40); White Blood Cell (WBC) Count 3.7 thou/uL (4.8-10.8)
[2020-05-26 06:49] LABS: Band 21 % (5-11); Lymphocytes 39 % (21-51); MDiff Complete? YES; Monocytes 20 % (0-10); Neutrophil 18 % (42-75); Platelet Morphology Comment Appears Decreased; Reactive Lymphocytes 2 % (0-10)
[2020-05-26] MEDS: NIFEdipine XL 30 MG TAB PO SCH (07:33)
[2020-05-26] MEDS: Atorvastatin Calcium 40 MG TAB PO SCH (07:33)
[2020-05-26] MEDS: Carvedilol 6.25 MG TAB PO SCH ×2 (07:34→16:18)
[2020-05-26] MEDS: Aspirin Chewable 81 MG TAB PO SCH (07:34)
[2020-05-26] MEDS: Calcitriol 0.25 MCG CAP PO SCH (07:34)
[2020-05-26] MEDS: Apixaban 2.5 MG TAB PO SCH ×2 (07:35→20:40)
--- NOTE | 2020-05-26 11:42 | CON ---
DATE OF CONSULTATION: 05/26/2020 HISTORY OF PRESENT ILLNESS: Ms. Lehman is a 75-year-old white female with ESRD - on maintenance hemodialysis, was admitted for persistent shakes and chills. However, she denied any associated fever with this. She does have some nonproductive cough for the last several days. During the initial workup, she was found to be COVID-19 positive. We are being consulted for management of her ESRD, maintenance hemodialysis. Please note, the patient did undergo dialysis yesterday. REVIEW OF SYSTEMS: Positive for chills/tremors. No fever. Positive for cough. No syncopal episode. Appetite and energy level decreased. No abdominal pain. No nausea. No vomiting. No dysuria. No urinary frequency. No headache. No shortness of breath. MEDICATIONS: The patient is currently on: 1. Eliquis 2.5 mg p.o. b.i.d. 2. Aspirin 81 mg daily. 3. Atorvastatin 1 tablet at bedtime. 4. Tessalon Perles 100 mg p.o. q.6 p.r.n. 5. Calcitriol 0.25 mcg tablet daily. 6. Carvedilol 3.125 mg p.o. b.i.d. 7. Cefepime 1 g IV daily. 8. Famotidine 20 mg p.o. b.i.d. 9. Humalog sliding scale. 10. Ibuprofen 400 mg q.4 p.r.n. 11. Nifedipine 30 mg XL tablet daily. 12. Normal saline 50 mL/h, status post vancomycin/vancomycin sliding scale. PAST MEDICAL HISTORY: Includes the followin. ESRD from presumed diabetic nephropathy. 2. Hypertension. 3. Type 2 diabetes mellitus. 4. History of coronary artery disease. 5. Benign right renal tumor. 6. Hyperlipidemia. 7. Morbid obesity. 8. Status post CHF. 9. Left breast cancer - remission. 10. Gout. 11. Uterine cancer - remission. 12. COPD. 13. Cervical cancer - remission. PAST SURGICAL HISTORY: 1. Status post colonoscopy. 2. Status post right nephrectomy. 3. Status post cardiac cath. 4. Status post CABG. 5. Status post back surgery. 6. Status post hysterectomy with accidental laceration of the right ureter. 7. Status post mastectomy. 8. Status post AV fistula placement. 9. Status post cuffed hemodialysis catheter placement. 10. Status post left breast biopsy. 11. Status post left axillary lymph node biopsy. SOCIAL HISTORY: The patient lives in [place]. Lives with her son. She is . Smoked for 40 years 1-1/2 packs per day, currently not smoking. No drug abuse. Status post blood transfusion. Education, 11th grade. Retired [employer] employee. ALLERGIES: NONE BUT ADVERSE REACTION TO MORPHINE AND CODEINE. TRAUMA: None. IMMUNIZATIONS: Up to date. HOSPITALIZATIONS: Please see past medical history. FAMILY HISTORY: No family history of ESRD. PHYSICAL EXAMINATION: VITAL SIGNS: Blood pressure is noted at 120/70 with a heart rate of 80. GENERAL: Awake, alert, supine, comfortable, somewhat lethargic, but not in overt distress. SKIN: Adequate turgor. HEENT: Pinkish conjunctivae. Anicteric sclerae. NECK: No neck mass. No carotid bruits. No JVD. CHEST: No deformities. LUNGS: Harsh breath sounds. HEART: Normal sinus rhythm. No murmur. No gallops. No rubs. ABDOMEN: Globular, soft, nontender. No masses. EXTREMITIES: Trace edema. NEUROLOGIC: Awake, oriented to 3 spheres. Moving all extremities. No tremors. No asterixis. No ataxia. LABORATORY DATA: Laboratories dated May 25, 2020, were reviewed. May 26, 2020, laboratories showed potassium 4.1, BUN 41, creatinine 5.91, white count was 3.7, hemoglobin 11.6. May 25, 2020, chest x-ray, increased lung markings. ASSESSMENT AND PLAN: 1. End-stage renal disease. Stable. No indication for any emergent dialysis today. Continue Thursday, Thursday, and Thursday hemodialysis. Review of the last Kt/V suggests she is adequately dialyzed with the current dialysis regimen. 2. COVID-19 pneumonia. Continue supportive care. The patient is on empiric IV antibiotics. Agree with current management. We will continue to follow. Job ID: [id number]
--- NOTE | 2020-05-26 15:51 | PDOC.HOSPP ---
- Subjective Encounter Date: 05/26/20 Encounter Time: 15:49 Subjective: Ms. Lehman was seen today in follow-up of COVID infection and sepsis. She says she feels ok. She is less short of breath, but has a constant cough, and chest pain related to the cough. - Objective Vital Signs & Weight: Vital Signs (12 hours) Temp Pulse Pulse Resp BP BP Pulse Ox 05/26/20 13:00 75 118/70 05/26/20 12:16 99.4 F 77 20 95/49 L 96 05/26/20 07:35 99.2 F 75 18 118/70 97 05/26/20 07:33 88 05/26/20 04:30 98.9 F 88 20 146/67 H 99 Pulse Ox 05/26/20 13:00 97 05/26/20 12:16 05/26/20 07:35 05/26/20 07:33 05/26/20 04:30 Weight Admit Weight 233 lb 3.984 oz Weight 233 lb 3.985 oz I&O: 05/25/20 05/26/20 05/27/20 06:59 06:59 06:59 Intake Total 850 Balance 850 Result Diagrams: 05/26/20 05:38 05/26/20 05:38 Additional Labs: Accuchecks 05/26/20 05/26/20 11:13 04:29 POC Glucose 198 H 162 H Hospitalist ROS - Medication Medications: Active Medications Generic Name Dose Route Start Last Admin Trade Name Freq PRN Reason Stop Dose Admin Apixaban 2.5 mg 05/25/20 21:00 05/26/20 07:35 Apixaban 2.5 Mg Tab PO 2.5 mg BID REJI Administration Aspirin 81 mg 05/26/20 09:00 05/26/20 07:34 Aspirin Chewable 81 Mg Tab PO 81 mg DAILY REJI Administration Atorvastatin Calcium 80 mg 05/26/20 09:00 05/26/20 07:33 Atorvastatin Calcium 40 Mg Tab PO 80 mg DAILY REJI Administration Calcitriol 0.25 mcg 05/26/20 09:00 05/26/20 07:34 Calcitriol 0.25 Mcg Cap PO 0.25 mcg DAILY REJI Administration Carvedilol 3.125 mg 05/26/20 08:00 05/26/20 07:34 Carvedilol 6.25 Mg Tab PO 3.125 mg BID-WM REJI Administration Sodium Chloride 1,000 mls @ 50 mls/hr 05/25/20 19:15 05/25/20 20:51 Normal Saline 0.9% IV 1,000 mls .Q20H REJI Administration Insulin Human Lispro 0 units 05/25/20 19:15 05/26/20 12:52 Humalog 300 Units/3 Ml Vial SC 2 unit .MILD SLIDING SCALE PRN Administration Mild Correctional Scale Insulin Human Lispro 0 units 05/25/20 19:15 05/25/20 21:23 Humalog 300 Units/3 Ml Vial SC 3 unit .BEDTIME SLIDING SC PRN Administration Bedtime Correctional Scale Nifedipine 30 mg 05/26/20 09:00 05/26/20 07:33 Nifedipine Xl 30 Mg Tab PO 30 mg DAILY REJI Administration - Exam Eye: PERRL, anicteric sclera Heart: RRR, no murmur, no gallops, no rubs, normal peripheral pulses Respiratory: no wheezes, no ronchi, rales (at both bases) Gastrointestinal: soft, non-tender, non-distended, normal bowel sounds, no palpable masses, no hepatomegaly Extremities: no cyanosis, 1+ LE edema (palpable d.p. pulses bilaterally) Hosp A/P (1) Pneumonia due to COVID-19 virus Code(s): U07.1 - COVID-19; J12.89 - OTHER VIRAL PNEUMONIA Status: Acute (2) ESRD (end stage renal disease) on dialysis Code(s): N18.6 - END STAGE RENAL DISEASE; Z99.2 - DEPENDENCE ON RENAL DIALYSIS Status: Acute (3) DM type 2 (diabetes mellitus, type 2) Status: Chronic Qualifiers: Diabetes mellitus intermediate teacher insulin use: with intermediate teacher use Diabetes mellitus complication status: with kidney complications Diabetes mellitus complication detail: with chronic kidney disease Chronic kidney disease stage: stage 4 (severe) Qualified Code(s): E11.22 - Type 2 diabetes mellitus with diabetic chronic kidney disease; N18.4 - Chronic kidney disease, stage 4 (severe); Z79.4 - penitentiary (current) use of insulin (4) Hypertension Code(s): I10 - ESSENTIAL (PRIMARY) HYPERTENSION Status: Chronic Qualifiers: Hypertension type: essential hypertension Qualified Code(s): I10 - Essential (primary) hypertension (5) Atrial fibrillation Code(s): I48.91 - UNSPECIFIED ATRIAL FIBRILLATION Status: Chronic - Plan * Pneumonia due to COVID- continue Decadron * She is not a candidate for Remdesivir due to renal function * Monitor inflammatory markers * ESRD- continue dialysis as tolerated * HTN- blood pressure is stable * DM- blood glucose is stable * Atrial Fibrillation- her heart rate is stable- continue Eliquis
[2020-05-26] MEDS: Cefepime 1 GM in Sodium Chloride 0.9% 100 ML IVPB SCH (16:17)
[2020-05-26] MEDS: Sodium Chloride 0.9% 1,000 ML IV SCH (16:19)
[2020-05-26] MEDS: Acetaminophen 500 MG TAB PO PRN (18:06)
[2020-05-26] MEDS: GUAIFENESIN SF SOLN 200 MG/10 ML UDCUP PO PRN (20:40)
[2020-05-26] MEDS: Famotidine 20 MG TAB PO SCH (20:40)
[2020-05-27] MEDS: Acetaminophen 500 MG TAB PO PRN ×2 (01:12→17:21)
[2020-05-27 06:24] LABS: #Lymphocytes 1.7 thou/uL (1.20-3.40); #Monocytes 0.5 thou/uL (0.11-0.59); #Neutrophils 1.5 thou/uL (1.40-6.50); %Basophils 0.2 % (0.0-1.0); %Eosinophils 0.3 % (0.0-10.0); %Lymphocytes 45.4 % (21.0-51.0); %Monocytes 12.8 % (0.0-10.0); %Neutrophils 41.2 % (42.0-75.0); Hemoglobin 11.7 g/dL (12.0-16.0); Mean Corpuscular Hemoglobin 33.3 pg (27.0-31.0); Mean Platelet Volume 10.6 fL (7.4-10.4); Platelet Count 76 thou/uL (130-400); RBC Distribution Width 13.3 % (11.5-14.5); Red Blood Cell (RBC) Count 3.51 mill/uL (4.20-5.40); White Blood Cell (WBC) Count 3.6 thou/uL (4.8-10.8)
[2020-05-27 06:26] LABS: Anion Gap 21 mmol/L (10-20); BUN (Urea Nitrogen) 50 mg/dL (9.8-20.1); CRP (Inflammatory) 0.79 mg/dL (= or < 0.5); Calc. Creatinine Clearance 12 mL/min (70-130); Calcium 7.2 mg/dL (7.8-10.44); Carbon Dioxide 20 mmol/L (23-31); Chloride 99 mmol/L (98-107); Glucose 115 mg/dL (83-110); Sodium 136 mmol/L (136-145)
[2020-05-27] MEDS: Apixaban 2.5 MG TAB PO SCH ×2 (09:26→20:45)
[2020-05-27] MEDS: Atorvastatin Calcium 40 MG TAB PO SCH (09:26)
[2020-05-27] MEDS: NIFEdipine XL 30 MG TAB PO SCH (09:26)
[2020-05-27 09:27] LABS: Vancomycin, Random 29.9 ug/mL (See Comment)
[2020-05-27] MEDS: Calcitriol 0.25 MCG CAP PO SCH (09:27)
[2020-05-27] MEDS: Carvedilol 6.25 MG TAB PO SCH ×2 (09:27→17:21)
[2020-05-27] MEDS: Aspirin Chewable 81 MG TAB PO SCH (09:27)
--- NOTE | 2020-05-27 12:13 | PDOC.HOSPP ---
- Subjective Encounter Date: 05/27/20 Encounter Time: 12:11 Subjective: Ms. Lehman was seen today in follow-up COVID infection with sepsis syndrome. She is having muscle twitching periodically, which started around the time she developed COVID symptoms. She denies feeling short of breath, no diarrhea., no nausea or vomiting. - Objective Vital Signs & Weight: Vital Signs (12 hours) Temp Pulse Resp BP BP Pulse Ox 05/27/20 09:35 98.4 F 80 16 164/59 H 95 05/27/20 08:00 95 05/27/20 05:11 94 L 05/27/20 04:00 98.7 F 81 20 134/77 94 L Weight Admit Weight 233 lb 3.984 oz Weight 233 lb 3.985 oz I&O: 05/26/20 05/27/20 05/28/20 06:59 06:59 06:59 Intake Total 850 400 Balance 850 400 Result Diagrams: 05/27/20 05:04 05/27/20 05:04 Additional Labs: Accuchecks 05/27/20 05/27/20 05/26/20 11:59 04:28 20:55 POC Glucose 174 H 118 H 232 H Hospitalist ROS - Medication Medications: Active Medications Generic Name Dose Route Start Last Admin Trade Name Freq PRN Reason Stop Dose Admin Acetaminophen 1,000 mg 05/25/20 19:15 05/27/20 01:12 Acetaminophen 500 Mg Tab PO 1,000 mg Q6H PRN Administration Mild Pain (1-3) Apixaban 2.5 mg 05/25/20 21:00 05/27/20 09:26 Apixaban 2.5 Mg Tab PO 2.5 mg BID REJI Administration Aspirin 81 mg 05/26/20 09:00 05/27/20 09:27 Aspirin Chewable 81 Mg Tab PO 81 mg DAILY REJI Administration Atorvastatin Calcium 80 mg 05/26/20 09:00 05/27/20 09:26 Atorvastatin Calcium 40 Mg Tab PO 80 mg DAILY REJI Administration Calcitriol 0.25 mcg 05/26/20 09:00 05/27/20 09:27 Calcitriol 0.25 Mcg Cap PO 0.25 mcg DAILY REJI Administration Carvedilol 3.125 mg 05/26/20 08:00 05/27/20 09:27 Carvedilol 6.25 Mg Tab PO 3.125 mg BID-WM REJI Administration Famotidine 20 mg 05/26/20 21:00 05/26/20 20:40 Famotidine 20 Mg Tab PO 20 mg HS REJI Administration Guaifenesin 200 mg 05/25/20 19:15 05/26/20 20:40 Diabetic Tussin 200 Mg/10 Ml Udcup PO 200 mg Q4H PRN Administration Cough Cefepime HCl 1 gm/ Sodium 100 mls @ 200 mls/hr 05/26/20 15:00 05/26/20 16:17 Chloride IVPB 100 mls 1500 REJI Administration Sodium Chloride 1,000 mls @ 50 mls/hr 05/25/20 19:15 05/26/20 16:19 Normal Saline 0.9% IV 1,000 mls .Q20H REJI Administration Insulin Human Lispro 0 units 05/25/20 19:15 05/26/20 18:07 Humalog 300 Units/3 Ml Vial SC 2 unit .MILD SLIDING SCALE PRN Administration Mild Correctional Scale Insulin Human Lispro 0 units 05/25/20 19:15 05/26/20 20:57 Humalog 300 Units/3 Ml Vial SC 2 unit .BEDTIME SLIDING SC PRN Administration Bedtime Correctional Scale Nifedipine 30 mg 05/26/20 09:00 05/27/20 09:26 Nifedipine Xl 30 Mg Tab PO 30 mg DAILY REJI Administration - Exam Eye: PERRL, anicteric sclera Heart: RRR, no murmur, no gallops, no rubs, normal peripheral pulses (+ occasional rhonchi) Respiratory: rhonchi Gastrointestinal: soft, non-tender, non-distended, normal bowel sounds, no palpable masses, no hepatomegaly Extremities: no cyanosis, no edema Hosp A/P (1) Pneumonia due to COVID-19 virus Code(s): U07.1 - COVID-19; J12.89 - OTHER VIRAL PNEUMONIA Status: Acute (2) ESRD (end stage renal disease) on dialysis Code(s): N18.6 - END STAGE RENAL DISEASE; Z99.2 - DEPENDENCE ON RENAL DIALYSIS Status: Acute (3) DM type 2 (diabetes mellitus, type 2) Status: Chronic Qualifiers: Diabetes mellitus intermediate card tender insulin use: with intermediate card tender use Diabetes mellitus complication status: with kidney complications Diabetes mellitus complication detail: with chronic kidney disease Chronic kidney disease stage: stage 4 (severe) Qualified Code(s): E11.22 - Type 2 diabetes mellitus with diabetic chronic kidney disease; N18.4 - Chronic kidney disease, stage 4 (severe); Z79.4 - local intermodal truck driver (current) use of insulin (4) Hypertension Code(s): I10 - ESSENTIAL (PRIMARY) HYPERTENSION Status: Chronic Qualifiers: Hypertension type: essential hypertension Qualified Code(s): I10 - Essential (primary) hypertension (5) Atrial fibrillation Code(s): I48.91 - UNSPECIFIED ATRIAL FIBRILLATION Status: Chronic (6) Hypocalcemia Code(s): E83.51 - HYPOCALCEMIA Status: Acute - Plan * Pneumonia due to COVID- continue Decadron * She is not a candidate for Remdesivir due to renal function, and now is not requiring supplemental oxygen * Monitor inflammatory markers * ESRD- continue dialysis as tolerated * Body jerking, - possible related to low calcium levels- will discuss with Nephrology * HTN- blood pressure is stable * DM- blood glucose is stable * Atrial Fibrillation- her heart rate is stable- continue Eliquis
[2020-05-27] MEDS: HumaLOG 300 UNITS/3 ML VIAL SC PRN ×3 (12:45→20:52)
[2020-05-27] MEDS: Cefepime 1 GM in Sodium Chloride 0.9% 100 ML IVPB SCH (14:56)
[2020-05-27] MEDS: Sodium Chloride 0.9% 1,000 ML IV SCH (14:56)
[2020-05-27] MEDS: GUAIFENESIN SF SOLN 200 MG/10 ML UDCUP PO PRN (20:44)
[2020-05-27] MEDS: Famotidine 20 MG TAB PO SCH (20:45)
[2020-05-27] MEDS: Ibuprofen 200 MG TAB PO PRN (20:45)
[2020-05-28] MEDS: Sodium Chloride 0.9% 1,000 ML IV SCH ×2 (08:10→19:11)
[2020-05-28] MEDS: Atorvastatin Calcium 40 MG TAB PO SCH (08:33)
[2020-05-28] MEDS: Apixaban 2.5 MG TAB PO SCH ×2 (08:34→21:01)
[2020-05-28] MEDS: Aspirin Chewable 81 MG TAB PO SCH (08:34)
[2020-05-28] MEDS: Calcitriol 0.25 MCG CAP PO SCH (08:34)
[2020-05-28] MEDS: Carvedilol 6.25 MG TAB PO SCH ×2 (08:34→17:04)
[2020-05-28] MEDS: NIFEdipine XL 30 MG TAB PO SCH (08:34)
[2020-05-28] MEDS ORDERED: Lorazepam 2 MG/ML VIAL ONE (08:43)
[2020-05-28 09:03] LABS: Vancomycin, Random 25.7 ug/mL (See Comment)
--- NOTE | 2020-05-28 09:34 | PRG ---
DATE OF SERVICE: 05/28/2020 SUBJECTIVE: Ms. Lehman is a 75-year-old white female with ESRD, was admitted for COVID-19 pneumonia. The patient has been having intermittent tremors. I did witness this. She has been given Ativan 1 mg IV x1 dose. I do not feel that the lower calcium level is playing a factor in this. No complaints of chest pain or shortness of breath. The patient is scheduled for regular dialysis today. OBJECTIVE: VITAL SIGNS: Blood pressure is 120/70, heart rate 81, respiratory rate 18, temperature 98.8, O2 saturation 98% on room air. GENERAL: The patient is awake, alert, sitting comfortable, obese, not in distress. SKIN: Adequate turgor. HEENT: She has pinkish conjunctivae. Anicteric sclerae. No neck mass. No carotid bruits. No JVD. CHEST: No deformities. LUNGS: Clear breath sounds. HEART: Normal sinus rhythm. No murmurs, gallops, or rubs. ABDOMEN: Globular soft nontender. No masses. EXTREMITIES: No edema, no deformities. LABORATORY DATA: Laboratories of May 27, 2020, vancomycin level is 29.9. May 27, 2020, potassium 4, BUN 50, creatinine 6.86, ferritin 3580. White count 3.6, hemoglobin 11.7. ASSESSMENT/PLAN: 1. End-stage renal disease, stable. We will continue current Thursday, Thursday, and Thursday hemodialysis regimen. Fluid removal only as tolerated by the patient. 2. Intention tremor, usually the tremors precipitated by a movement. She has been given Ativan 1 mg IV x1 dose. Please note, this started about a week prior to admission when she has been having intermittent tremors. If no improvement, we may need to consider a Neurology evaluation with this patient. 3. Mild hypocalcemia, patient currently on calcitriol 0.25 mcg tablet q. day. 4. COVID-19 pneumonia. Continue supportive care. Please note, the patient is also on empiric IV antibiotics. 5. Agree with current management. We will be rechecking CBC and basic metabolics in a.m. Job ID: [id number]
--- NOTE | 2020-05-28 09:44 | PDOC.HOSPP ---
- Subjective Encounter Date: 05/28/20 Encounter Time: 09:42 Subjective: Ms. Lehman was seen today in follow-up of COVID infection, and sepsis syndrome. She continues to have some shaking periodically. She was given ativan, and is now a bit drowsy. - Objective Vital Signs & Weight: Vital Signs (12 hours) Pulse 05/28/20 08:34 81 Weight Admit Weight 233 lb 3.984 oz Weight 233 lb 3.985 oz I&O: 05/27/20 05/28/20 05/29/20 06:59 06:59 06:59 Intake Total 400 900 Balance 400 900 Result Diagrams: 05/27/20 05:04 05/27/20 05:04 Additional Labs: Accuchecks 05/28/20 05/27/20 05/27/20 05:04 20:49 16:44 POC Glucose 136 H 247 H 180 H 05/27/20 05/25/20 11:59 21:10 POC Glucose 174 H 293 H Hospitalist ROS - Medication Medications: Active Medications Generic Name Dose Route Start Last Admin Trade Name Freq PRN Reason Stop Dose Admin Acetaminophen 1,000 mg 05/25/20 19:15 05/27/20 17:21 Acetaminophen 500 Mg Tab PO 1,000 mg Q6H PRN Administration Mild Pain (1-3) Apixaban 2.5 mg 05/25/20 21:00 05/28/20 08:34 Apixaban 2.5 Mg Tab PO 2.5 mg BID REJI Administration Aspirin 81 mg 05/26/20 09:00 05/28/20 08:34 Aspirin Chewable 81 Mg Tab PO 81 mg DAILY REJI Administration Atorvastatin Calcium 80 mg 05/26/20 09:00 05/28/20 08:33 Atorvastatin Calcium 40 Mg Tab PO 80 mg DAILY REJI Administration Calcitriol 0.25 mcg 05/26/20 09:00 05/28/20 08:34 Calcitriol 0.25 Mcg Cap PO 0.25 mcg DAILY REJI Administration Carvedilol 3.125 mg 05/26/20 08:00 05/28/20 08:34 Carvedilol 6.25 Mg Tab PO 3.125 mg BID-WM REJI Administration Famotidine 20 mg 05/26/20 21:00 05/27/20 20:45 Famotidine 20 Mg Tab PO 20 mg HS REJI Administration Guaifenesin 200 mg 05/25/20 19:15 05/27/20 20:44 Diabetic Tussin 200 Mg/10 Ml Udcup PO 200 mg Q4H PRN Administration Cough Cefepime HCl 1 gm/ Sodium 100 mls @ 200 mls/hr 05/26/20 15:00 05/27/20 14:56 Chloride IVPB 100 mls 1500 REJI Administration Sodium Chloride 1,000 mls @ 50 mls/hr 05/25/20 19:15 05/27/20 14:56 Normal Saline 0.9% IV 1,000 mls .Q20H REJI Administration Ibuprofen 400 mg 05/25/20 19:15 05/27/20 20:45 Ibuprofen 200 Mg Tab PO 400 mg Q4H PRN Administration Fever > 101 Insulin Human Lispro 0 units 05/25/20 19:15 05/27/20 17:22 Humalog 300 Units/3 Ml Vial SC 2 unit .MILD SLIDING SCALE PRN Administration Mild Correctional Scale Insulin Human Lispro 0 units 05/25/20 19:15 05/27/20 20:52 Humalog 300 Units/3 Ml Vial SC 2 unit .BEDTIME SLIDING SC PRN Administration Bedtime Correctional Scale Nifedipine 30 mg 05/26/20 09:00 05/28/20 08:34 Nifedipine Xl 30 Mg Tab PO 30 mg DAILY REJI Administration - Exam Eye: PERRL, anicteric sclera Heart: RRR, no murmur, no gallops, no rubs, normal peripheral pulses Respiratory: CTAB, no wheezes, no rales, no ronchi, normal chest expansion Gastrointestinal: soft, non-tender, non-distended, normal bowel sounds, no palpable masses Extremities: no cyanosis, no edema Hosp A/P (1) Pneumonia due to COVID-19 virus Code(s): U07.1 - COVID-19; J12.89 - OTHER VIRAL PNEUMONIA Status: Acute (2) ESRD (end stage renal disease) on dialysis Code(s): N18.6 - END STAGE RENAL DISEASE; Z99.2 - DEPENDENCE ON RENAL DIALYSIS Status: Acute (3) DM type 2 (diabetes mellitus, type 2) Status: Chronic Qualifiers: Diabetes mellitus director of extension work insulin use: with skilled nursing use Diabetes mellitus complication status: with kidney complications Diabetes mellitus complication detail: with chronic kidney disease Chronic kidney disease stage: stage 4 (severe) Qualified Code(s): E11.22 - Type 2 diabetes mellitus with diabetic chronic kidney disease; N18.4 - Chronic kidney disease, stage 4 (severe); Z79.4 - door closer (current) use of insulin (4) Hypertension Code(s): I10 - ESSENTIAL (PRIMARY) HYPERTENSION Status: Chronic Qualifiers: Hypertension type: essential hypertension Qualified Code(s): I10 - Essential (primary) hypertension (5) Atrial fibrillation Code(s): I48.91 - UNSPECIFIED ATRIAL FIBRILLATION Status: Chronic (6) Hypocalcemia Code(s): E83.51 - HYPOCALCEMIA Status: Acute - Plan * Pneumonia due to COVID- continue Decadron * She is not a candidate for Remdesivir due to renal function, and now is not requiring supplemental oxygen * Monitor inflammatory markers * ESRD- continue dialysis as tolerated * Myoclonic movements- ? etiology - possibly related to COVID infection * HTN- blood pressure is stable * DM- blood glucose is stable * Atrial Fibrillation- her heart rate is stable- continue Eliquis * Will consider de-escalting antibiotics. There were no blood or urine cultures identified, but she has remained stable, with no fever, and the sepsis syndrome was likely due to COVID infection
[2020-05-28] MEDS ORDERED: Lorazepam 2 MG/ML VIAL SLOW IVP SCH (10:00)
[2020-05-28] MEDS: Ibuprofen 200 MG TAB PO PRN (14:48)
[2020-05-28] MEDS: Cefepime 1 GM in Sodium Chloride 0.9% 100 ML IVPB SCH (14:51)
[2020-05-28] MEDS: HumaLOG 300 UNITS/3 ML VIAL SC PRN (17:04)
[2020-05-28] MEDS: Famotidine 20 MG TAB PO SCH (21:01)
[2020-05-29 06:28] LABS: Anion Gap 16 mmol/L (10-20); BUN (Urea Nitrogen) 39 mg/dL (9.8-20.1); Calc. Creatinine Clearance 15 mL/min (70-130); Calcium 7.3 mg/dL (7.8-10.44); Carbon Dioxide 26 mmol/L (23-31); Chloride 100 mmol/L (98-107); Glucose 268 mg/dL (83-110); Sodium 138 mmol/L (136-145)
[2020-05-29 07:00] LABS: #Lymphocytes 1.2 thou/uL (1.20-3.40); #Monocytes 0.5 thou/uL (0.11-0.59); #Neutrophils 2.3 thou/uL (1.40-6.50); %Basophils 0.5 % (0.0-1.0); %Eosinophils 0.1 % (0.0-10.0); %Lymphocytes 29.6 % (21.0-51.0); %Monocytes 11.8 % (0.0-10.0); Hemoglobin 11.4 g/dL (12.0-16.0); Mean Corpuscular Hemoglobin 32.3 pg (27.0-31.0); Mean Corpuscular Volume 97.9 fL (78.0-98.0); Mean Platelet Volume 11.1 fL (7.4-10.4); Platelet Count 92 thou/uL (130-400); RBC Distribution Width 13.5 % (11.5-14.5); Red Blood Cell (RBC) Count 3.53 mill/uL (4.20-5.40)
[2020-05-29] MEDS: Atorvastatin Calcium 40 MG TAB PO SCH (08:48)
[2020-05-29] MEDS: Carvedilol 6.25 MG TAB PO SCH ×2 (08:48→16:40)
[2020-05-29] MEDS: Acetaminophen 500 MG TAB PO PRN (08:48)
[2020-05-29] MEDS: NIFEdipine XL 30 MG TAB PO SCH (08:48)
[2020-05-29] MEDS: Aspirin Chewable 81 MG TAB PO SCH (08:48)
[2020-05-29] MEDS: Apixaban 2.5 MG TAB PO SCH ×2 (08:49→19:50)
[2020-05-29] MEDS: Calcitriol 0.25 MCG CAP PO SCH (08:49)
[2020-05-29] MEDS: HumaLOG 300 UNITS/3 ML VIAL SC PRN ×3 (11:50→19:51)
--- NOTE | 2020-05-29 15:25 | PDOC.HOSPP ---
- Subjective Encounter Date: 05/29/20 Encounter Time: 15:23 Subjective: Ms. Lehman was seen today in follow-up of COVID infection and muscle twitching and jerking. She says she continues to have this symptom off and on. She also says she is very weak, and can barely stand up. - Objective Vital Signs & Weight: Vital Signs (12 hours) Temp Pulse Resp BP BP Pulse Ox 05/29/20 11:04 98.8 F 78 20 126/85 90 L 05/29/20 08:48 85 124/74 05/29/20 07:55 100.0 F H 85 18 128/82 90 L Weight Admit Weight 233 lb 3.984 oz Weight 233 lb 3.985 oz I&O: 05/28/20 05/29/20 05/30/20 06:59 06:59 06:59 Intake Total 900 500 Output Total 1500 Balance 900 -1000 Result Diagrams: 05/29/20 05:21 05/29/20 05:21 Additional Labs: Accuchecks 05/29/20 05/29/20 05/28/20 10:42 06:43 21:22 POC Glucose 256 H 271 H 278 H 05/28/20 16:30 POC Glucose 223 H Hospitalist ROS - Medication Medications: Active Medications Generic Name Dose Route Start Last Admin Trade Name Freq PRN Reason Stop Dose Admin Acetaminophen 1,000 mg 05/25/20 19:15 05/29/20 08:48 Acetaminophen 500 Mg Tab PO 1,000 mg Q6H PRN Administration Mild Pain (1-3) Apixaban 2.5 mg 05/25/20 21:00 05/29/20 08:49 Apixaban 2.5 Mg Tab PO 2.5 mg BID REJI Administration Aspirin 81 mg 05/26/20 09:00 05/29/20 08:48 Aspirin Chewable 81 Mg Tab PO 81 mg DAILY REJI Administration Atorvastatin Calcium 80 mg 05/26/20 09:00 05/29/20 08:48 Atorvastatin Calcium 40 Mg Tab PO 80 mg DAILY REJI Administration Calcitriol 0.25 mcg 05/26/20 09:00 05/29/20 08:49 Calcitriol 0.25 Mcg Cap PO 0.25 mcg DAILY REJI Administration Carvedilol 3.125 mg 05/26/20 08:00 05/29/20 08:48 Carvedilol 6.25 Mg Tab PO 3.125 mg BID-WM REJI Administration Famotidine 20 mg 05/26/20 21:00 05/28/20 21:01 Famotidine 20 Mg Tab PO 20 mg HS REJI Administration Guaifenesin 200 mg 05/25/20 19:15 05/27/20 20:44 Diabetic Tussin 200 Mg/10 Ml Udcup PO 200 mg Q4H PRN Administration Cough Sodium Chloride 1,000 mls @ 50 mls/hr 05/25/20 19:15 05/28/20 19:11 Normal Saline 0.9% IV Not Given .Q20H REJI Ibuprofen 400 mg 05/25/20 19:15 05/28/20 14:48 Ibuprofen 200 Mg Tab PO 400 mg Q4H PRN Administration Fever > 101 Insulin Human Lispro 0 units 05/25/20 19:15 05/29/20 11:50 Humalog 300 Units/3 Ml Vial SC 4 unit .MILD SLIDING SCALE PRN Administration Mild Correctional Scale Insulin Human Lispro 0 units 05/25/20 19:15 05/27/20 20:52 Humalog 300 Units/3 Ml Vial SC 2 unit .BEDTIME SLIDING SC PRN Administration Bedtime Correctional Scale Nifedipine 30 mg 05/26/20 09:00 05/29/20 08:48 Nifedipine Xl 30 Mg Tab PO 30 mg DAILY REJI Administration - Exam Eye: PERRL, anicteric sclera Heart: RRR, no murmur, no gallops, no rubs, normal peripheral pulses Respiratory: CTAB, no wheezes, no rales, no ronchi, normal chest expansion Gastrointestinal: soft, non-tender, non-distended, normal bowel sounds, no palpable masses, no hepatomegaly Extremities: no cyanosis, no edema Hosp A/P (1) Pneumonia due to COVID-19 virus Code(s): U07.1 - COVID-19; J12.89 - OTHER VIRAL PNEUMONIA Status: Acute (2) ESRD (end stage renal disease) on dialysis Code(s): N18.6 - END STAGE RENAL DISEASE; Z99.2 - DEPENDENCE ON RENAL DIALYSIS Status: Acute (3) DM type 2 (diabetes mellitus, type 2) Status: Chronic Qualifiers: Diabetes mellitus intermediate teacher insulin use: with intermediate teacher use Diabetes mellitus complication status: with kidney complications Diabetes mellitus complication detail: with chronic kidney disease Chronic kidney disease stage: stage 4 (severe) Qualified Code(s): E11.22 - Type 2 diabetes mellitus with diabetic chronic kidney disease; N18.4 - Chronic kidney disease, stage 4 (severe); Z79.4 - half-way (current) use of insulin (4) Hypertension Code(s): I10 - ESSENTIAL (PRIMARY) HYPERTENSION Status: Chronic Qualifiers: Hypertension type: essential hypertension Qualified Code(s): I10 - Essential (primary) hypertension (5) Atrial fibrillation Code(s): I48.91 - UNSPECIFIED ATRIAL FIBRILLATION Status: Chronic (6) Hypocalcemia Code(s): E83.51 - HYPOCALCEMIA Status: Acute - Plan * Pneumonia due to COVID- will begin to reyes Decadron, as she is not requiring supplemental oxygen * ESRD- continue dialysis as tolerated * Myoclonic movements- ? etiology - possibly related to COVID infection ( the extreme weakness )- however her son tells me that she has had shaking in her hands before she was diagnosed with COVID, and it lasted a few days then resolved on it's own. Will Consult Neurologist * HTN- blood pressure is stable * DM- blood glucose is elevated- will re-start Lantus, and begin to titrate her Lantus dose up to her home dose as tolerated * Atrial Fibrillation- her heart rate is stable- continue Eliquis * Blood cultures are negative, and she has not exhibited any clinical evidence of infection- will discontinue antibiotics * Generalized weakness- she continues to be very weak, and it is unlikely that this will turn around in the next few days- will consider long term or swing bed at the time of discharge
--- NOTE | 2020-05-29 17:01 | CON ---
DATE OF CONSULTATION: 05/29/2020 CONSULTING PHYSICIAN: Hospitalist Services. IMPRESSION: Generalized weakness, likely provoked by ongoing COVID infection, superimposed on her chronic issues. PLAN: Rule out orthostatic hypotension. HISTORY OF PRESENT ILLNESS: Ms. Lehman is an elderly lady who has past history of coronary artery disease, diabetes, breast cancer, COPD, hyperlipidemia, atrial fibrillation, end-stage renal disease, on hemodialysis, who over the last week has become very tremulous. She was quite shaky at dialysis and was brought to the hospital. Her lab work was notable for azotemia and a blood glucose is in the 250s. She reports that she usually has to hold her blood pressure medications prior to dialysis secondary to hypotension. Since admission, she was tested positive for COVID. She admits to having some low-grade fever, increased shortness of breath, generalized fatigue, and feeling weaker than normal. PAST HISTORY: As listed above. ALLERGIES: PER CHART. SOCIAL HISTORY: No tobacco or alcohol. FAMILY HISTORY: Noncontributory. REVIEW OF SYSTEMS: Ten-system review of systems is otherwise negative. PHYSICAL EXAMINATION: GENERAL: She is an overweight, elderly lady, in no acute distress. VITAL SIGNS: Reviewed. HEENT: Pupils equal and reactive. Conjunctivae clear. Oropharynx clear. NECK: Supple. No lymphadenopathy. ABDOMEN: Soft and nontender. EXTREMITIES: No cyanosis or edema. SKIN: Clear. NEUROLOGIC: She is alert and appropriate. Her speech is fluent and clear. She has no focal deficits. She has a postural tremor on extension of both hands. When asked to come to a standing position, she becomes very shaky and weak and cannot maintain her standing posture independently. There was no change in her color or demeanor during this interval. SUMMARY: This is an elderly lady who recently tested positive for COVID. She seems to have some generalized symptoms associated with it. I suspect this is contributing to her weakness and difficulty standing. Her metabolic problems contribute to her tremulousness. There does not appear to be anything specific to be done other than make sure she is not getting hypotensive. Job ID: [id number]
[2020-05-29] MEDS: Famotidine 20 MG TAB PO SCH (19:50)
[2020-05-29] MEDS ORDERED: Insulin Glargine 15 UNITS in Pre-Filled Syringe 1 EACH SC SCH (21:00)
[2020-05-30] MEDS: Aspirin Chewable 81 MG TAB PO SCH (08:03)
[2020-05-30] MEDS: NIFEdipine XL 30 MG TAB PO SCH (08:03)
[2020-05-30] MEDS: Carvedilol 6.25 MG TAB PO SCH ×2 (08:04→18:01)
[2020-05-30] MEDS: Atorvastatin Calcium 40 MG TAB PO SCH (08:04)
[2020-05-30] MEDS: Calcitriol 0.25 MCG CAP PO SCH (08:04)
[2020-05-30] MEDS: Apixaban 2.5 MG TAB PO SCH ×2 (08:05→20:18)
[2020-05-30 09:11] LABS: #Lymphocytes 1.2 thou/uL (1.20-3.40); #Monocytes 0.4 thou/uL (0.11-0.59); #Neutrophils 2.9 thou/uL (1.40-6.50); %Eosinophils 0.1 % (0.0-10.0); %Lymphocytes 26.4 % (21.0-51.0); %Monocytes 8.4 % (0.0-10.0); %Neutrophils 65.1 % (42.0-75.0); Hemoglobin 11.9 g/dL (12.0-16.0); Mean Corpuscular HGB CONC 32.9 g/dL (32.0-36.0); Mean Corpuscular Hemoglobin 32.6 pg (27.0-31.0); Mean Corpuscular Volume 99.2 fL (78.0-98.0); Mean Platelet Volume 10.9 fL (7.4-10.4); Platelet Count 106 thou/uL (130-400); RBC Distribution Width 13.5 % (11.5-14.5); Red Blood Cell (RBC) Count 3.64 mill/uL (4.20-5.40); White Blood Cell (WBC) Count 4.5 thou/uL (4.8-10.8)
--- NOTE | 2020-05-30 09:12 | PRG ---
DATE OF SERVICE: 05/30/2020 SUBJECTIVE: Ms. Lehman is a 75-year-old white female with ESRD - maintenance hemodialysis and was initially admitted for COVID-19 pneumonia. She is undergoing hemodialysis and tolerating said treatment. Intermittently, the patient has been having these tremors. She is being treated with Ativan 0.25 mg q.4 as needed. Denies any chest pain or shortness of breath. OBJECTIVE: VITAL SIGNS: Blood pressure is 124/74, heart rate is 70, O2 saturation is 93% on room air. GENERAL: The patient is awake, mildly anxious, but not in cardiorespiratory distress. SKIN: Adequate turgor. HEENT: She has pinkish conjunctivae. Anicteric sclerae. NECK: No neck mass. No carotid bruits. No JVD. CHEST: No deformities. LUNGS: Clear breath sounds. HEART: Normal sinus rhythm. No murmur. No gallops. No rubs. ABDOMEN: Globular, soft, nontender. No masses. EXTREMITIES: No edema. No deformities. MEDICATIONS: Of May 30, 2020, was reviewed. LABORATORY DATA: Laboratories of May 29, 2020, sodium 138, potassium 4, chloride 100, carbon dioxide 26, BUN 39, creatinine 5.43, calcium 7.3. White count 4, hemoglobin 11.4. ASSESSMENT AND PLAN: 1. Tremors - this could be secondary to some degree of anxiety. Currently on Ativan p.r.n. 2. End-stage renal disease, stable. We will continue current Thursday, Thursday, and Thursday hemodialysis. Again, fluid removal only as tolerated by the patient. 3. COVID-19 pneumonia - continuing supportive care. 4. Agree with current management. Job ID: [id number]
[2020-05-30 09:35] LABS: Albumin 2.9 g/dL (3.4-4.8)
[2020-05-30 09:36] LABS: Chloride 99 mmol/L (98-107); Sodium 141 mmol/L (136-145)
[2020-05-30 09:37] LABS: Calcium 7.4 mg/dL (7.8-10.44); Glucose 195 mg/dL (83-110)
[2020-05-30 09:38] LABS: Protein, Total 5.9 g/dL (6.0-8.3)
[2020-05-30 09:39] LABS: Anion Gap 22 mmol/L (10-20); Bilirubin, Total 0.3 mg/dL (0.2-1.2); Carbon Dioxide 24 mmol/L (23-31)
[2020-05-30 09:40] LABS: Alkaline Phosphatase 71 U/L (40-110)
[2020-05-30 09:41] LABS: Calc. Creatinine Clearance 11 mL/min (70-130)
[2020-05-30 09:42] LABS: AST (SGOT) 45 U/L (5-34); BUN (Urea Nitrogen) 51 mg/dL (9.8-20.1)
[2020-05-30 09:43] LABS: ALT (SGPT) 24 U/L (8-55)
[2020-05-30] MEDS: HumaLOG 300 UNITS/3 ML VIAL SC PRN ×2 (12:50→20:34)
--- NOTE | 2020-05-30 14:54 | PDOC.HOSPP ---
- Subjective Encounter Date: 05/30/20 Encounter Time: 14:51 Subjective: Ms. Lehman was seen today in follow-up of COVID infection and generalized weakness. She continues to feel weak. When she was up to go to the bathroom, her oxygen requirements increased. - Objective Vital Signs & Weight: Vital Signs (12 hours) Temp Pulse Resp BP BP Pulse Ox Pulse Ox 05/30/20 12:00 98.8 F 74 18 148/84 H 92 L 05/30/20 10:35 94 L 05/30/20 08:04 124/74 05/30/20 08:03 70 05/30/20 08:00 99.2 F 87 20 150/78 H 92 L 05/30/20 06:39 93 L Pulse Ox 05/30/20 12:00 05/30/20 10:35 93 L 05/30/20 08:04 05/30/20 08:03 05/30/20 08:00 05/30/20 06:39 Weight Admit Weight 233 lb 3.984 oz Weight 233 lb 3.985 oz I&O: 05/29/20 05/30/20 05/31/20 06:59 06:59 06:59 Intake Total 500 Output Total 1500 Balance -1000 Result Diagrams: 05/30/20 08:40 05/30/20 08:40 Additional Labs: Accuchecks 05/30/20 05/30/20 05/29/20 12:40 05:03 19:46 POC Glucose 201 H 205 H 278 H 05/29/20 15:12 POC Glucose 272 H Hospitalist ROS - Medication Medications: Active Medications Generic Name Dose Route Start Last Admin Trade Name Freq PRN Reason Stop Dose Admin Acetaminophen 1,000 mg 05/25/20 19:15 05/29/20 08:48 Acetaminophen 500 Mg Tab PO 1,000 mg Q6H PRN Administration Mild Pain (1-3) Apixaban 2.5 mg 05/25/20 21:00 05/30/20 08:05 Apixaban 2.5 Mg Tab PO 2.5 mg BID REJI Administration Aspirin 81 mg 05/26/20 09:00 05/30/20 08:03 Aspirin Chewable 81 Mg Tab PO 81 mg DAILY REJI Administration Atorvastatin Calcium 80 mg 05/26/20 09:00 05/30/20 08:04 Atorvastatin Calcium 40 Mg Tab PO 80 mg DAILY REJI Administration Calcitriol 0.25 mcg 05/26/20 09:00 05/30/20 08:04 Calcitriol 0.25 Mcg Cap PO 0.25 mcg DAILY REJI Administration Carvedilol 3.125 mg 05/26/20 08:00 05/30/20 08:04 Carvedilol 6.25 Mg Tab PO 3.125 mg BID-WM REJI Administration Famotidine 20 mg 05/26/20 21:00 05/29/20 19:50 Famotidine 20 Mg Tab PO 20 mg HS REJI Administration Guaifenesin 200 mg 05/25/20 19:15 05/27/20 20:44 Diabetic Tussin 200 Mg/10 Ml Udcup PO 200 mg Q4H PRN Administration Cough Ibuprofen 400 mg 05/25/20 19:15 05/28/20 14:48 Ibuprofen 200 Mg Tab PO 400 mg Q4H PRN Administration Fever > 101 Insulin Human Lispro 0 units 05/25/20 19:15 05/30/20 12:50 Humalog 300 Units/3 Ml Vial SC 3 unit .MILD SLIDING SCALE PRN Administration Mild Correctional Scale Insulin Human Lispro 0 units 05/25/20 19:15 05/29/20 19:51 Humalog 300 Units/3 Ml Vial SC 3 unit .BEDTIME SLIDING SC PRN Administration Bedtime Correctional Scale Nifedipine 30 mg 05/26/20 09:00 05/30/20 08:03 Nifedipine Xl 30 Mg Tab PO 30 mg DAILY REJI Administration - Exam Eye: PERRL, anicteric sclera Heart: RRR, no murmur, no gallops, no rubs, normal peripheral pulses Respiratory: rales (at the bases, and some rhonchi) Gastrointestinal: soft, non-tender, non-distended, normal bowel sounds Extremities: no cyanosis, 1+ LE edema Hosp A/P (1) Pneumonia due to COVID-19 virus Code(s): U07.1 - COVID-19; J12.89 - OTHER VIRAL PNEUMONIA Status: Acute (2) ESRD (end stage renal disease) on dialysis Code(s): N18.6 - END STAGE RENAL DISEASE; Z99.2 - DEPENDENCE ON RENAL DIALYSIS Status: Acute (3) DM type 2 (diabetes mellitus, type 2) Status: Chronic Qualifiers: Diabetes mellitus nursing home insulin use: with nursing home use Diabetes mellitus complication status: with kidney complications Diabetes mellitus complication detail: with chronic kidney disease Chronic kidney disease stage: stage 4 (severe) Qualified Code(s): E11.22 - Type 2 diabetes mellitus with diabetic chronic kidney disease; N18.4 - Chronic kidney disease, stage 4 (severe); 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 etiology - possibly related to COVID infection ( the e xtreme weakness ) Neurology evaluation noted * HTN- blood pressure is stable * DM- blood glucose is elevated- titrate Lantus as needed9 i suspect with Decadron will need to continue to titrate Lantus * Atrial Fibrillation- her heart rate is stable- continue Eliquis * Generalized weakness- [facility] evaluation
[2020-05-30] MEDS ORDERED: Dexamethasone 6 MG in Sodium Chloride 0.9% 50 ML IVPB SCH (15:00)
[2020-05-30] MEDS ORDERED: Dexamethasone 4 MG TAB PO SCH (16:45)
[2020-05-30 18:57] LABS: Actual Bicarbonate (HCO3a) 26.4 mEq/L (22-28); Base Excess (BEa) 3.3 mEq/L (-2.0 to +3.0); CO2 Tension 34.9 mmHg (35.0-45.0); Calcium, Ionized (arterial) 1.06 mmol/L (1.12-1.30); Carboxyhemoglobin (COHb) 0.4 gm% (0.0-3.0); Hemoglobin (Hb) 12.5 g/dL (12.0-16.0); Potassium - ABG Lab 3.92 mmol/L (3.70-5.30)
[2020-05-30 19:01] LABS: O2 Tension (PaO2), arterial 50.1 mmHg (> 70.0)
[2020-05-30 19:02] LABS: ALV-art Gradient 162.955 mmHg (0-20); Puncture Site RBA
--- NOTE | 2020-05-30 19:25 | PDOC.EVN ---
Event Note - Event Note Event Note: RT called. ABG resulted. Called nursing to increase 02 supply.
--- NOTE | 2020-05-30 19:36 | RAD ---
EXAM: Single view of the chest HISTORY: Covid infection with increasing oxygen requirement COMPARISON: 05/25/2020 FINDINGS: Single view of the chest shows an enlarged but stable cardiomediastinal silhouette. Athero sclerotic calcifications are seen in the aorta. The patient is status post sternotomy. There are worsening multifocal infiltrates in the lungs. No acute osseous abnormality. IMPRESSION: Worsening multifocal infiltrates
[2020-05-30] MEDS: Famotidine 20 MG TAB PO SCH (20:18)
[2020-05-30] MEDS: Insulin Glargine 50 UNITS in Pre-Filled Syringe 1 EACH SC SCH (20:34)
[2020-05-31] MEDS: HumaLOG 300 UNITS/3 ML VIAL SC PRN ×4 (05:20→20:37)
[2020-05-31] MEDS: Atorvastatin Calcium 40 MG TAB PO SCH (07:53)
[2020-05-31] MEDS: NIFEdipine XL 30 MG TAB PO SCH (07:53)
[2020-05-31] MEDS: Calcitriol 0.25 MCG CAP PO SCH (07:53)
[2020-05-31] MEDS: Dexamethasone 4 MG TAB PO SCH (07:54)
[2020-05-31] MEDS: Carvedilol 6.25 MG TAB PO SCH ×2 (07:55→16:02)
[2020-05-31] MEDS: Aspirin Chewable 81 MG TAB PO SCH (07:55)
[2020-05-31] MEDS: Apixaban 2.5 MG TAB PO SCH ×2 (07:56→20:37)
[2020-05-31] MEDS: Insulin Glargine 50 UNITS in Pre-Filled Syringe 1 EACH SC SCH (20:37)
[2020-05-31] MEDS: Famotidine 20 MG TAB PO SCH (20:37)
[2020-05-31] MEDS: Benzonatate 100 MG CAP PO PRN (20:40)
[2020-06-01] MEDS: GUAIFENESIN SF SOLN 200 MG/10 ML UDCUP PO PRN (00:52)
[2020-06-01] MEDS: Benzonatate 100 MG CAP PO PRN ×3 (05:17→20:20)
[2020-06-01] MEDS: HumaLOG 300 UNITS/3 ML VIAL SC PRN ×4 (05:17→20:27)
--- NOTE | 2020-06-01 07:27 | PDOC.HOSPP ---
- Subjective Encounter Date: 05/31/20 Subjective: patient reports she actually feels fine. She does not have significant shortness of breath. She reports that her biggest problem is that she has significant loneliness being in the hospital. She is calling and talking to her children. - Objective Vital Signs & Weight: Vital Signs (12 hours) Temp Pulse Resp BP Pulse Ox 06/01/20 04:42 97.6 F 70 18 135/76 93 L 06/01/20 00:00 98.0 F 84 20 121/69 92 L 05/31/20 20:00 98.4 F 78 20 153/87 H 93 L Weight Admit Weight 233 lb 3.984 oz Weight 233 lb 3.985 oz I&O: 05/31/20 06/01/20 06/02/20 06:59 06:59 06:59 Intake Total 350 Balance 350 Result Diagrams: 05/30/20 08:40 05/30/20 08:40 Additional Labs: Accuchecks 06/01/20 05/31/20 05/31/20 04:47 20:23 11:23 POC Glucose 342 H 452 H 368 H Hospitalist ROS - Medication Medications: Active Medications Generic Name Dose Route Start Last Admin Trade Name Freq PRN Reason Stop Dose Admin Acetaminophen 1,000 mg 05/25/20 19:15 05/29/20 08:48 Acetaminophen 500 Mg Tab PO 1,000 mg Q6H PRN Administration Mild Pain (1-3) Apixaban 2.5 mg 05/25/20 21:00 05/31/20 20:37 Apixaban 2.5 Mg Tab PO 2.5 mg BID REJI Administration Aspirin 81 mg 05/26/20 09:00 05/31/20 07:55 Aspirin Chewable 81 Mg Tab PO 81 mg DAILY REJI Administration Atorvastatin Calcium 80 mg 05/26/20 09:00 05/31/20 07:53 Atorvastatin Calcium 40 Mg Tab PO 80 mg DAILY REJI Administration Benzonatate 100 mg 05/25/20 19:15 06/01/20 05:17 Benzonatate 100 Mg Cap PO 100 mg Q6H PRN Administration Cough Calcitriol 0.25 mcg 05/26/20 09:00 05/31/20 07:53 Calcitriol 0.25 Mcg Cap PO 0.25 mcg DAILY REJI Administration Carvedilol 3.125 mg 05/26/20 08:00 05/31/20 16:02 Carvedilol 6.25 Mg Tab PO 3.125 mg BID-WM REJI Administration Dexamethasone 6 mg 05/31/20 09:00 05/31/20 07:54 Dexamethasone 4 Mg Tab PO 6 mg QAM REIJ Administration Famotidine 20 mg 05/26/20 21:00 05/31/20 20:37 Famotidine 20 Mg Tab PO 20 mg HS REJI Administration Guaifenesin 200 mg 05/25/20 19:15 06/01/20 00:52 Diabetic Tussin 200 Mg/10 Ml Udcup PO 200 mg Q4H PRN Administration Cough Insulin Glargine 50 units/ 0.5 mls @ 0 mls/hr 05/30/20 21:00 05/31/20 20:37 Miscellaneous Medication SC 0.5 mls HS REJI Administration Ibuprofen 400 mg 05/25/20 19:15 05/28/20 14:48 Ibuprofen 200 Mg Tab PO 400 mg Q4H PRN Administration Fever > 101 Insulin Human Lispro 0 units 05/25/20 19:15 05/31/20 20:37 Humalog 300 Units/3 Ml Vial SC 5 unit .BEDTIME SLIDING SC PRN Administration Bedtime Correctional Scale Nifedipine 30 mg 05/26/20 09:00 05/31/20 07:53 Nifedipine Xl 30 Mg Tab PO 30 mg DAILY ERJI Administration - Exam General Appearance: NAD, awake alert Heart: RRR, no murmur, no gallops, no rubs, normal peripheral pulses Respiratory: no wheezes, no ronchi, rales (Bilateral) Gastrointestinal: soft, non-tender, non-distended, normal bowel sounds, no palpable masses, no hepatomegaly, no splenomegaly, no bruit Extremities: no cyanosis, no clubbing, no edema Neurological: no focal deficits Psychiatric: normal affect, normal behavior, A&O x 3 Hosp A/P (1) Acute hypoxemic respiratory failure Code(s): J96.01 - ACUTE RESPIRATORY FAILURE WITH HYPOXIA Status: Acute (2) Pneumonia due to COVID-19 virus Code(s): U07.1 - COVID-19; J12.89 - OTHER VIRAL PNEUMONIA Status: Acute (3) Atrial fibrillation Code(s): I48.91 - UNSPECIFIED ATRIAL FIBRILLATION Status: Chronic (4) ESRD (end stage renal disease) on dialysis Code(s): N18.6 - END STAGE RENAL DISEASE; Z99.2 - DEPENDENCE ON RENAL DIALYSIS Status: Acute (5) DM type 2 (diabetes mellitus, type 2) Status: Chronic Qualifiers: Diabetes mellitus usp insulin use: with usp use Diabetes mellitus complication status: with kidney complications Diabetes mellitus complication detail: with chronic kidney disease Chronic kidney disease stage: stage 4 (severe) Qualified Code(s): E11.22 - Type 2 diabetes mellitus with diabetic chronic kidney disease; N18.4 - Chronic kidney disease, stage 4 (severe); 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 Events overnight noted. Patient remains hypoxic requiring supplemental oxygen. Infiltrates actually looked a little worse on her x-ray overnight. Covid 19 pneumonia: Continue with Decadron. continue with supplemental oxygen. she is on anticoagulation with Eliquis. diabetes mellitus: Severe hyperglycemia secondary to Decadron. Will increase her Lantus dose in the morning. Will increase her sliding scale from mild to moderate. Atrial fibrillation: Rate controlled. She is on anticoagulation with Eliquis. End-stage renal disease: Continue to follow with nephrology and dialysis as needed. Hypocalcemia: Corrected calcium is normal. hypertension: Adequate control. Continue current medications. Myoclonus: Suspect benign and likely related to steroids. Neurology consult appreciated. deconditioning: Multifactorial. Will need rehab at discharge.
[2020-06-01] MEDS: Insulin Glargine 20 UNITS in Pre-Filled Syringe 1 EACH SC SCH (07:56)
--- NOTE | 2020-06-01 09:09 | PRG ---
DATE OF SERVICE: 06/01/2020 SUBJECTIVE: Ms. Lehman is a 75-year-old white female with ESRD and currently on maintenance hemodialysis, who was initially admitted for COVID-19 pneumonia. She voices no new complaints. She is still somewhat anxious. She did mention a transient hemoptysis last night. OBJECTIVE: VITAL SIGNS: Blood pressure is 135/76, heart rate 70, respiratory rate 18, temperature 97.6, O2 saturation 93% on room air. GENERAL: The patient is awake, mildly anxious, but not in distress. SKIN: Adequate turgor. HEENT: Pinkish conjunctivae. Anicteric sclerae. No neck mass. No carotid bruits. No JVD. CHEST: No deformities. LUNGS: Clear breath sounds. No wheezing. No crackles. HEART: Normal sinus rhythm. No murmurs, gallops, or rubs. ABDOMEN: Globular. Soft. Nontender. No masses. EXTREMITIES: No edema. No deformities. LABORATORY DATA: Laboratories of June 01, 2020 is pending. Laboratories of May 30, 2020; white count 4.5, hemoglobin 11.9. Potassium is 4, BUN 51, creatinine 7.18. Meds of 05/2520 - Reviewed May 30, 2020 chest x-ray shows worsening multifocal infiltrates. ASSESSMENT AND PLAN: 1. ESRD-hemodialysis is undergoing today. The patient instead of undergoing a 3-hour hemodialysis requested for a 2-hour hemodialysis. We will comply with the patient's request. Fluid removal as tolerated by the patient. 2. COVID-19 pneumonia. Continuing supportive care. The patient is currently on steroids. 3. Overall prognosis remains guarded. We will recheck CBC basement in a.m. again. Job ID: [id number] [facility]
[2020-06-01 09:59] LABS: #Lymphocytes 1.1 thou/uL (1.20-3.40); #Monocytes 0.9 thou/uL (0.11-0.59); #Neutrophils 10.9 thou/uL (1.40-6.50); %Basophils 0.1 % (0.0-1.0); %Lymphocytes 8.5 % (21.0-51.0); %Monocytes 6.8 % (0.0-10.0); %Neutrophils 84.6 % (42.0-75.0); Hemoglobin 11.9 g/dL (12.0-16.0); Mean Corpuscular HGB CONC 32.9 g/dL (32.0-36.0); Mean Corpuscular Volume 97.2 fL (78.0-98.0); Mean Platelet Volume 9.5 fL (7.4-10.4); Platelet Count 189 thou/uL (130-400); RBC Distribution Width 13.6 % (11.5-14.5); Red Blood Cell (RBC) Count 3.73 mill/uL (4.20-5.40); White Blood Cell (WBC) Count 12.9 thou/uL (4.8-10.8)
[2020-06-01 10:19] LABS: Anion Gap 19 mmol/L (10-20); BUN (Urea Nitrogen) 50 mg/dL (9.8-20.1); Calc. Creatinine Clearance 15 mL/min (70-130); Calcium 8.4 mg/dL (7.8-10.44); Carbon Dioxide 24 mmol/L (23-31); Chloride 95 mmol/L (98-107); Glucose 305 mg/dL (83-110); Potassium 3.9 mmol/L (3.5-5.1); Sodium 134 mmol/L (136-145)
[2020-06-01] MEDS: NIFEdipine XL 30 MG TAB PO SCH (11:43)
[2020-06-01] MEDS: Carvedilol 6.25 MG TAB PO SCH ×2 (11:43→17:51)
[2020-06-01] MEDS: Calcitriol 0.25 MCG CAP PO SCH (11:43)
[2020-06-01] MEDS: Atorvastatin Calcium 40 MG TAB PO SCH (11:44)
[2020-06-01] MEDS: Dexamethasone 4 MG TAB PO SCH (11:44)
[2020-06-01] MEDS: Aspirin Chewable 81 MG TAB PO SCH (11:45)
[2020-06-01] MEDS: Apixaban 2.5 MG TAB PO SCH ×2 (11:45→20:20)
--- NOTE | 2020-06-01 12:30 | PDOC.HOSPP ---
- Subjective Encounter Date: 06/01/20 Encounter Time: 12:27 Subjective: patient seen on f/u for covid 19 pneumonia, currently on 5L of 02 supplementation denies any fever chills n/v does refer coughing with some blood streaks. patient is currently receiving hd tolerating well. had a recent increa se in 02 requirements on 05/30/20 night has remain stable since then - Objective Vital Signs & Weight: Vital Signs (12 hours) Temp Pulse Resp BP BP Pulse Ox 06/01/20 12:00 98.3 F 72 18 145/71 H 93 L 06/01/20 11:43 72 06/01/20 08:00 98.2 F 72 18 148/73 H 93 L 06/01/20 04:42 97.6 F 70 18 135/76 93 L Weight Admit Weight 233 lb 3.984 oz Weight 233 lb 3.985 oz I&O: 05/31/20 06/01/20 06/02/20 06:59 06:59 06:59 Intake Total 350 Balance 350 Result Diagrams: 06/01/20 09:51 06/01/20 09:51 Additional Labs: Accuchecks 06/01/20 06/01/20 05/31/20 11:56 04:47 20:23 POC Glucose 224 H 342 H 452 H Hospitalist ROS - Review of Systems All other systems reviewed; all pertinent +/- noted in HPI/Subj - Medication Medications: Active Medications Generic Name Dose Route Start Last Admin Trade Name Freq PRN Reason Stop Dose Admin Acetaminophen 1,000 mg 05/25/20 19:15 05/29/20 08:48 Acetaminophen 500 Mg Tab PO 1,000 mg Q6H PRN Administration Mild Pain (1-3) Apixaban 2.5 mg 05/25/20 21:00 06/01/20 11:45 Apixaban 2.5 Mg Tab PO 2.5 mg BID REJI Administration Aspirin 81 mg 05/26/20 09:00 06/01/20 11:45 Aspirin Chewable 81 Mg Tab PO 81 mg DAILY REJI Administration Atorvastatin Calcium 80 mg 05/26/20 09:00 06/01/20 11:44 Atorvastatin Calcium 40 Mg Tab PO 80 mg DAILY REJI Administration Benzonatate 100 mg 05/25/20 19:15 06/01/20 11:50 Benzonatate 100 Mg Cap PO 100 mg Q6H PRN Administration Cough Calcitriol 0.25 mcg 05/26/20 09:00 06/01/20 11:43 Calcitriol 0.25 Mcg Cap PO 0.25 mcg DAILY REJI Administration Carvedilol 3.125 mg 05/26/20 08:00 06/01/20 11:43 Carvedilol 6.25 Mg Tab PO 3.125 mg BID-WM REJI Administration Dexamethasone 6 mg 05/31/20 09:00 06/01/20 11:44 Dexamethasone 4 Mg Tab PO 6 mg QAM REJI Administration Famotidine 20 mg 05/26/20 21:00 05/31/20 20:37 Famotidine 20 Mg Tab PO 20 mg HS REJI Administration Guaifenesin 200 mg 05/25/20 19:15 06/01/20 00:52 Diabetic Tussin 200 Mg/10 Ml Udcup PO 200 mg Q4H PRN Administration Cough Insulin Glargine 50 units/ 0.5 mls @ 0 mls/hr 05/30/20 21:00 05/31/20 20:37 Miscellaneous Medication SC 0.5 mls HS REJI Administration Insulin Glargine 20 units/ 0.2 mls @ 0 mls/hr 06/01/20 09:00 06/01/20 07:56 Miscellaneous Medication SC 0.2 mls QAM REJI Administration Ibuprofen 400 mg 05/25/20 19:15 05/28/20 14:48 Ibuprofen 200 Mg Tab PO 400 mg Q4H PRN Administration Fever > 101 Insulin Human Lispro 0 units 05/25/20 19:15 05/31/20 20:37 Humalog 300 Units/3 Ml Vial SC 5 unit .BEDTIME SLIDING SC PRN Administration Bedtime Correctional Scale Insulin Human Lispro 0 units 06/01/20 07:23 06/01/20 12:04 Humalog 300 Units/3 Ml Vial SC 4 unit .MODERATE SLIDING SC PRN Administration Moderate Correctional Scale Nifedipine 30 mg 05/26/20 09:00 06/01/20 11:43 Nifedipine Xl 30 Mg Tab PO 30 mg DAILY REJI Administration Sodium Chloride 10 ml 06/01/20 09:00 06/01/20 10:18 Flush - Normal Saline 10 Ml Syringe IVF Not Given Q12HR REJI - Exam General Appearance: NAD, awake alert Eye: PERRL, anicteric sclera ENT: normocephalic atraumatic, no oropharyngeal lesions Neck: supple, symmetric, no JVD, no thyromegaly Heart: RRR, no murmur, no gallops Respiratory: CTAB, no wheezes, no rales, no ronchi Gastrointestinal: soft, non-tender, non-distended, normal bowel sounds Extremities: no cyanosis, no clubbing, no edema Skin: normal turgor, no lesions, no rashes Neurological: cranial nerve grossly intact, normal sensation to touch, no weakness Musculoskeletal: normal tone, normal strength, no muscle wasting Psychiatric: normal affect, normal behavior, A&O x 3 Hosp A/P (1) Pneumonia due to COVID-19 virus Code(s): U07.1 - COVID-19; J12.89 - OTHER VIRAL PNEUMONIA Status: Acute (2) Physical deconditioning Code(s): R53.81 - OTHER MALAISE Status: Acute (3) Atrial fibrillation Code(s): I48.91 - UNSPECIFIED ATRIAL FIBRILLATION Status: Chronic (4) Acute bronchitis with COPD Code(s): J44.0 - CHR OBSTRUCTIVE PULMON DISEASE WITH (ACUTE) LOWER RESP INFCT Status: Acute (5) Acute hypoxemic respiratory failure Code(s): J96.01 - ACUTE RESPIRATORY FAILURE WITH HYPOXIA Status: Acute - Plan acute hypoxic respiratory failure: Secondary to Covid 19 pneumonia. Patient remains hypoxic requiring supplemental oxygen, w a recent increase to 5l. Infiltrates actually looked a little worse on last cxr Covid 19 pneumonia: Continue with Decadron. continue with supplemental oxygen. she is on anticoagulation with Eliquis. diabetes mellitus: hyperglycemia likely secondary to Decadron. on long acting insulin and SS. will adjust as needed Atrial fibrillation: Rate controlled. She is on anticoagulation with Eliquis. End-stage renal disease: Continue to follow with nephrology and dialysis as needed. hypertension: Adequate control. Continue current medications. Myoclonus: Suspect benign and likely related to steroids. deconditioning: Multifactorial. Will need rehab at discharge. possible discharge to rehab on thursday is there is no further deterioration
[2020-06-01] MEDS: Famotidine 20 MG TAB PO SCH (20:20)
[2020-06-01] MEDS: Insulin Glargine 50 UNITS in Pre-Filled Syringe 1 EACH SC SCH (20:20)
[2020-06-02] MEDS: HumaLOG 300 UNITS/3 ML VIAL SC PRN (05:18)
[2020-06-02 07:25] LABS: #Lymphocytes 0.9 thou/uL (1.20-3.40); #Monocytes 0.7 thou/uL (0.11-0.59); #Neutrophils 11.2 thou/uL (1.40-6.50); %Basophils 0.3 % (0.0-1.0); %Lymphocytes 6.6 % (21.0-51.0); %Monocytes 5.7 % (0.0-10.0); %Neutrophils 87.4 % (42.0-75.0); Hemoglobin 11.8 g/dL (12.0-16.0); Mean Corpuscular HGB CONC 32.3 g/dL (32.0-36.0); Mean Corpuscular Volume 99.1 fL (78.0-98.0); Mean Platelet Volume 9.8 fL (7.4-10.4); Platelet Count 190 thou/uL (130-400); RBC Distribution Width 13.8 % (11.5-14.5); Red Blood Cell (RBC) Count 3.69 mill/uL (4.20-5.40); White Blood Cell (WBC) Count 12.8 thou/uL (4.8-10.8)
[2020-06-02 07:30] LABS: Anion Gap 19 mmol/L (10-20); BUN (Urea Nitrogen) 59 mg/dL (9.8-20.1); Calc. Creatinine Clearance 12 mL/min (70-130); Calcium 8.4 mg/dL (7.8-10.44); Carbon Dioxide 26 mmol/L (23-31); Chloride 95 mmol/L (98-107); Glucose 291 mg/dL (83-110); Potassium 4.8 mmol/L (3.5-5.1); Sodium 135 mmol/L (136-145)
[2020-06-02] MEDS: Dexamethasone 4 MG TAB PO SCH (07:44)
[2020-06-02] MEDS: NIFEdipine XL 30 MG TAB PO SCH (07:44)
[2020-06-02] MEDS: Aspirin Chewable 81 MG TAB PO SCH (07:44)
[2020-06-02] MEDS: Atorvastatin Calcium 40 MG TAB PO SCH (07:45)
[2020-06-02] MEDS: Calcitriol 0.25 MCG CAP PO SCH (07:45)
[2020-06-02] MEDS: Carvedilol 6.25 MG TAB PO SCH ×2 (07:45→16:37)
[2020-06-02] MEDS: Insulin Glargine 20 UNITS in Pre-Filled Syringe 1 EACH SC SCH (07:46)
[2020-06-02] MEDS: Apixaban 2.5 MG TAB PO SCH ×2 (07:53→21:00)
[2020-06-02 08:06] LABS: Hemoglobin 11.6 g/dL (12.0-16.0); Mean Corpuscular HGB CONC 32.1 g/dL (32.0-36.0); Mean Corpuscular Hemoglobin 31.7 pg (27.0-31.0); Mean Platelet Volume 9.7 fL (7.4-10.4); Platelet Count 187 thou/uL (130-400); RBC Distribution Width 13.8 % (11.5-14.5); Red Blood Cell (RBC) Count 3.66 mill/uL (4.20-5.40); White Blood Cell (WBC) Count 12.7 thou/uL (4.8-10.8)
[2020-06-02] MEDS: Lorazepam 0.5 MG TAB PO PRN ×2 (09:44→13:30)
[2020-06-02 11:13] LABS: Lymphocytes 6 % (21-51); MDiff Complete? YES; Monocytes 4 % (0-10); Neutrophil 90 % (42-75); Platelet Morphology Comment Appears Adequate
--- NOTE | 2020-06-02 12:14 | PDOC.HOSPP ---
- Subjective Encounter Date: 06/02/20 Encounter Time: 10:00 Subjective: patient seen on f/u for covid 19 pneumonia. states feels SOB. for the last 2 days patient has had an incresed in 02 requirements. currently on high flow, 02 saturation improved was in the 80s on 5L. patient denies any fever chills nause vomiting chest or abd pain - Objective Vital Signs & Weight: Vital Signs (12 hours) Temp Pulse Resp BP BP Pulse Ox 06/02/20 08:00 85 L 06/02/20 07:44 90 06/02/20 07:23 97.8 F 90 22 H 196/64 H 85 L 06/02/20 05:22 98.2 F 26 H 132/84 87 L 06/02/20 01:54 91 L Weight Admit Weight 233 lb 3.984 oz Weight 233 lb 3.985 oz I&O: 06/01/20 06/02/20 06/03/20 06:59 06:59 06:59 Intake Total 240 Balance 240 Result Diagrams: 06/02/20 06:46 06/02/20 06:46 Additional Labs: Accuchecks 06/02/20 06/01/20 06/01/20 05:16 20:25 16:06 POC Glucose 306 H 274 H 296 H Hospitalist ROS - Review of Systems All other systems reviewed; all pertinent +/- noted in HPI/Subj - Medication Medications: Active Medications Generic Name Dose Route Start Last Admin Trade Name Freq PRN Reason Stop Dose Admin Acetaminophen 1,000 mg 05/25/20 19:15 05/29/20 08:48 Acetaminophen 500 Mg Tab PO 1,000 mg Q6H PRN Administration Mild Pain (1-3) Apixaban 2.5 mg 05/25/20 21:00 06/02/20 07:53 Apixaban 2.5 Mg Tab PO 2.5 mg BID REJI Administration Aspirin 81 mg 05/26/20 09:00 06/02/20 07:44 Aspirin Chewable 81 Mg Tab PO 81 mg DAILY REJI Administration Atorvastatin Calcium 80 mg 05/26/20 09:00 06/02/20 07:45 Atorvastatin Calcium 40 Mg Tab PO 80 mg DAILY REJI Administration Benzonatate 100 mg 05/25/20 19:15 06/01/20 20:20 Benzonatate 100 Mg Cap PO 100 mg Q6H PRN Administration Cough Calcitriol 0.25 mcg 05/26/20 09:00 06/02/20 07:45 Calcitriol 0.25 Mcg Cap PO 0.25 mcg DAILY REJI Administration Carvedilol 3.125 mg 05/26/20 08:00 06/02/20 07:45 Carvedilol 6.25 Mg Tab PO 3.125 mg BID-WM REJI Administration Dexamethasone 6 mg 05/31/20 09:00 06/02/20 07:44 Dexamethasone 4 Mg Tab PO 6 mg QAM REJI Administration Famotidine 20 mg 05/26/20 21:00 06/01/20 20:20 Famotidine 20 Mg Tab PO 20 mg HS REJI Administration Guaifenesin 200 mg 05/25/20 19:15 06/01/20 00:52 Diabetic Tussin 200 Mg/10 Ml Udcup PO 200 mg Q4H PRN Administration Cough Insulin Glargine 50 units/ 0.5 mls @ 0 mls/hr 05/30/20 21:00 06/01/20 20:20 Miscellaneous Medication SC 0.5 mls HS REJI Administration Insulin Glargine 20 units/ 0.2 mls @ 0 mls/hr 06/01/20 09:00 06/02/20 07:46 Miscellaneous Medication SC 0.2 mls QAM REJI Administration Ibuprofen 400 mg 05/25/20 19:15 05/28/20 14:48 Ibuprofen 200 Mg Tab PO 400 mg Q4H PRN Administration Fever > 101 Insulin Human Lispro 0 units 05/25/20 19:15 06/01/20 20:27 Humalog 300 Units/3 Ml Vial SC 3 unit .BEDTIME SLIDING SC PRN Administration Bedtime Correctional Scale Insulin Human Lispro 0 units 06/01/20 07:23 06/02/20 05:18 Humalog 300 Units/3 Ml Vial SC 8 unit .MODERATE SLIDING SC PRN Administration Moderate Correctional Scale Lorazepam 0.25 mg 05/27/20 12:40 06/02/20 09:44 Lorazepam 0.5 Mg Tab PO 0.25 mg Q4H PRN Administration Anxiety Nifedipine 30 mg 05/26/20 09:00 06/02/20 07:44 Nifedipine Xl 30 Mg Tab PO 30 mg DAILY REJI Administration Sodium Chloride 10 ml 06/01/20 09:00 06/02/20 07:53 Flush - Normal Saline 10 Ml Syringe IVF Not Given Q12HR REJI - Exam General Appearance: NAD, awake alert Eye: PERRL, anicteric sclera ENT: normocephalic atraumatic, no oropharyngeal lesions Neck: supple, symmetric, no JVD, no thyromegaly Heart: RRR, no murmur, no gallops, no rubs Respiratory: CTAB, no wheezes, no rales, no ronchi Gastrointestinal: soft, non-tender, non-distended, normal bowel sounds Extremities: no cyanosis, 1+ LE edema Skin: normal turgor Neurological: cranial nerve grossly intact, normal sensation to touch, no weakness Musculoskeletal: normal tone, normal strength Psychiatric: normal affect, normal behavior, A&O x 3 Hosp A/P (1) Pneumonia due to COVID-19 virus Code(s): U07.1 - COVID-19; J12.89 - OTHER VIRAL PNEUMONIA Status: Acute (2) Physical deconditioning Code(s): R53.81 - OTHER MALAISE Status: Acute (3) Atrial fibrillation Code(s): I48.91 - UNSPECIFIED ATRIAL FIBRILLATION Status: Chronic (4) Acute bronchitis with COPD Code(s): J44.0 - CHR OBSTRUCTIVE PULMON DISEASE WITH (ACUTE) LOWER RESP INFCT Status: Acute (5) Acute hypoxemic respiratory failure Code(s): J96.01 - ACUTE RESPIRATORY FAILURE WITH HYPOXIA Status: Acute - Plan acute hypoxic respiratory failure: Secondary to Covid 19 pneumonia. Patient remains hypoxic requiring supplemental oxygen, Infiltrates looked worse on last cxr. now on high flow 02 Covid 19 pneumonia: Continue with Decadron. continue with supplemental oxygen. she is on anticoagulation with Eliquis. diabetes mellitus: hyperglycemia likely secondary to Decadron. on long acting insulin and SS. will adjust as needed Atrial fibrillation: Rate controlled. She is on anticoagulation with Eliquis. End-stage renal disease: Continue to follow with nephrology and dialysis as needed. hypertension: Adequate control. Continue current medications. Myoclonus: Suspect benign and likely related to steroids. deconditioning: Multifactorial. Will need rehab at discharge. possible discharge to rehab on thursday is there is no further deterioration
[2020-06-02] MEDS: Insulin Glargine 50 UNITS in Pre-Filled Syringe 1 EACH SC SCH (21:00)
[2020-06-02] MEDS: Famotidine 20 MG TAB PO SCH (21:00)
[2020-06-02 21:36] LABS: Actual Bicarbonate (HCO3a) 23.2 mEq/L (22-28); Analyzer IN Cardio ER; Base Excess (BEa) -1.5 mEq/L (-2.0 to +3.0); CO2 Tension 38.9 mmHg (35.0-45.0); Carboxyhemoglobin (COHb) 0.2 gm% (0.0-3.0); Hemoglobin (Hb) 14.3 g/dL (12.0-16.0); Potassium - ABG Lab 4.91 mmol/L (3.70-5.30); pH, Arterial 7.39 (7.35-7.45)
[2020-06-02 21:40] LABS: Puncture Site RRA
[2020-06-02 21:41] LABS: ALV-art Gradient 558.465 mmHg (0-20)
[2020-06-03 03:31] LABS: Actual Bicarbonate (HCO3a) 25.6 mEq/L (22-28); Base Excess (BEa) 1.2 mEq/L (-2.0 to +3.0); CO2 Tension 39.8 mmHg (35.0-45.0); Carboxyhemoglobin (COHb) 0.5 gm% (0.0-3.0); Hemoglobin (Hb) 11.7 g/dL (12.0-16.0); Potassium - ABG Lab 5.03 mmol/L (3.70-5.30); pH, Arterial 7.43 (7.35-7.45)
[2020-06-03] MEDS ORDERED: OLANZapine 10 MG VIAL IM SCH (06:00)
[2020-06-03] MEDS ORDERED: Sterile Water 10 ML VIAL FS PRN (06:00)
[2020-06-03] MEDS: HumaLOG 300 UNITS/3 ML VIAL SC PRN ×2 (06:25→20:21)
[2020-06-03] MEDS: Atorvastatin Calcium 40 MG TAB PO SCH (08:54)
[2020-06-03] MEDS: Carvedilol 6.25 MG TAB PO SCH ×2 (08:55→17:33)
[2020-06-03] MEDS: Dexamethasone 4 MG TAB PO SCH (08:55)
[2020-06-03] MEDS: Apixaban 2.5 MG TAB PO SCH ×2 (08:55→20:10)
[2020-06-03] MEDS: Calcitriol 0.25 MCG CAP PO SCH (08:55)
[2020-06-03] MEDS: Aspirin Chewable 81 MG TAB PO SCH (08:55)
[2020-06-03] MEDS: NIFEdipine XL 30 MG TAB PO SCH (08:55)
[2020-06-03] MEDS ORDERED: Insulin Glargine 35 UNITS in Pre-Filled Syringe 1 EACH SC SCH (13:36)
--- NOTE | 2020-06-03 13:39 | PDOC.HOSPP ---
- Subjective Encounter Date: 06/03/20 Encounter Time: 13:34 Subjective: went to IMCU overnight after needing ativan for anxity and becoming hypoxic, was on BIPAP much of day but now comfortable on HFNC. no chest pain or shortness of breath. - Objective Vital Signs & Weight: Vital Signs (12 hours) Temp Pulse Pulse Pulse BP BP Pulse Ox 06/03/20 10:28 63 66 133/55 L 135/49 L 06/03/20 08:55 72 06/03/20 08:00 92 L 06/03/20 05:53 72 06/03/20 04:00 96.6 F L 06/03/20 03:48 67 Pulse Ox Pulse Ox 06/03/20 10:28 94 L 92 L 06/03/20 08:55 06/03/20 08:00 06/03/20 05:53 06/03/20 04:00 06/03/20 03:48 Weight Admit Weight 233 lb 3.984 oz Weight 233 lb 3.985 oz Most Recent Monitor Data Heart Rate from ECG 65 NIBP 141/46 NIBP BP-Mean 77 Respiration from ECG 29 SpO2 93 I&O: 06/02/20 06/03/20 06/04/20 06:59 06:59 06:59 Intake Total 720 Balance 720 Result Diagrams: 06/03/20 13:57 06/03/20 13:57 Additional Labs: Accuchecks 06/03/20 06/02/20 06/02/20 06:23 20:54 15:35 POC Glucose 353 H 391 H 244 H Radiology Reviewed by me: Yes Hospitalist ROS - Medication Medications: Active Medications Generic Name Dose Route Start Last Admin Trade Name Freq PRN Reason Stop Dose Admin Acetaminophen 1,000 mg 05/25/20 19:15 05/29/20 08:48 Acetaminophen 500 Mg Tab PO 1,000 mg Q6H PRN Administration Mild Pain (1-3) Apixaban 2.5 mg 05/25/20 21:00 06/03/20 08:55 Apixaban 2.5 Mg Tab PO 2.5 mg BID REJI Administration Aspirin 81 mg 05/26/20 09:00 06/03/20 08:55 Aspirin Chewable 81 Mg Tab PO 81 mg DAILY REJI Administration Atorvastatin Calcium 80 mg 05/26/20 09:00 12/27/20 08:54 Atorvastatin Calcium 40 Mg Tab PO 80 mg DAILY REJI Administration Benzonatate 100 mg 05/25/20 19:15 06/01/20 20:20 Benzonatate 100 Mg Cap PO 100 mg Q6H PRN Administration Cough Calcitriol 0.25 mcg 05/26/20 09:00 06/03/20 08:55 Calcitriol 0.25 Mcg Cap PO 0.25 mcg DAILY REJI Administration Carvedilol 3.125 mg 05/26/20 08:00 06/03/20 08:55 Carvedilol 6.25 Mg Tab PO 3.125 mg BID-WM REJI Administration Dexamethasone 6 mg 05/31/20 09:00 06/03/20 08:55 Dexamethasone 4 Mg Tab PO 6 mg QAM REJI Administration Famotidine 20 mg 05/26/20 21:00 06/02/20 21:00 Famotidine 20 Mg Tab PO 20 mg HS REJI Administration Guaifenesin 200 mg 05/25/20 19:15 06/01/20 00:52 Diabetic Tussin 200 Mg/10 Ml Udcup PO 200 mg Q4H PRN Administration Cough Insulin Glargine 50 units/ 0.5 mls @ 0 mls/hr 05/30/20 21:00 06/02/20 21:00 Miscellaneous Medication SC 0.5 mls HS REJI Administration Insulin Glargine 20 units/ 0.2 mls @ 0 mls/hr 06/01/20 09:00 06/02/20 07:46 Miscellaneous Medication SC 0.2 mls QAM REJI Administration Ibuprofen 400 mg 05/25/20 19:15 05/28/20 14:48 Ibuprofen 200 Mg Tab PO 400 mg Q4H PRN Administration Fever > 101 Insulin Human Lispro 0 units 05/25/20 19:15 06/03/20 06:25 Humalog 300 Units/3 Ml Vial SC 5 unit .BEDTIME SLIDING SC PRN Administration Bedtime Correctional Scale Insulin Human Lispro 0 units 06/01/20 07:23 06/02/20 05:18 Humalog 300 Units/3 Ml Vial SC 8 unit .MODERATE SLIDING SC PRN Administration Moderate Correctional Scale Lorazepam 0.25 mg 05/27/20 12:40 06/02/20 13:30 Lorazepam 0.5 Mg Tab PO 0.25 mg Q4H PRN Administration Anxiety Nifedipine 30 mg 05/26/20 09:00 06/03/20 08:55 Nifedipine Xl 30 Mg Tab PO 30 mg DAILY REJI Administration Sodium Chloride 10 ml 06/01/20 09:00 06/03/20 08:56 Flush - Normal Saline 10 Ml Syringe IVF 10 ml Q12HR REJI Administration - Exam General Appearance: NAD, awake alert, ill appearing General - other findings: on hfnc Eye: PERRL, anicteric sclera ENT: normocephalic atraumatic, no oropharyngeal lesions, moist mucosa Neck: supple, symmetric, no JVD, no thyromegaly, no lymphadenopathy, no carotid bruit Heart: RRR, no murmur, no gallops, no rubs, normal peripheral pulses Respiratory: CTAB, no wheezes, no rales, no ronchi, normal chest expansion, no tachypnea, normal percussion Gastrointestinal: soft, non-tender, non-distended, normal bowel sounds, no palpable masses, no hepatomegaly, no splenomegaly, no bruit Extremities: no cyanosis, no clubbing, no edema Skin: normal turgor, no lesions, no rashes Neurological: cranial nerve grossly intact, normal sensation to touch, no weakness, no focal deficits, no new deficit Musculoskeletal: normal tone, normal strength, no muscle wasting Psychiatric: normal affect, normal behavior, A&O x 3 Hosp A/P (1) Physical deconditioning Code(s): R53.81 - OTHER MALAISE Status: Acute (2) Pneumonia due to COVID-19 virus Code(s): U07.1 - COVID-19; J12.89 - OTHER VIRAL PNEUMONIA Status: Acute (3) Atrial fibrillation Code(s): I48.91 - UNSPECIFIED ATRIAL FIBRILLATION Status: Chronic (4) Acute bronchitis with COPD Code(s): J44.0 - CHR OBSTRUCTIVE PULMON DISEASE WITH (ACUTE) LOWER RESP INFCT Status: Acute (5) Acute hypoxemic respiratory failure Code(s): J96.01 - ACUTE RESPIRATORY FAILURE WITH HYPOXIA Status: Acute (6) Myoclonus Code(s): G25.3 - MYOCLONUS Status: Acute - Plan acute hypoxic respiratory failure: Secondary to Covid 19 pneumonia. Patient remains hypoxic requiring supplemental oxygen, required bipap and ativan overnight, now on high flow 02 - likely ok to transfer back to floor soon Covid 19 pneumonia: Continue with Decadron. continue with supplemental oxygen. she is on anticoagulation with Eliquis. # hyperkalemia - underwent shorter HD session last time on request, may need to go back to previous longer HD to improve K, will trend daily and communicate with nephrology if continues to worsen diabetes mellitus: hyperglycemia likely secondary to Decadron. on long acting insulin and SS. will adjust as needed - increase long and short acting doses, sugars in 300s today Atrial fibrillation: Rate controlled. She is on anticoagulation with Eliquis. End-stage renal disease: Continue to follow with nephrology and dialysis as needed. hypertension: Adequate control. Continue current medications. Myoclonus: Suspect benign and likely related to steroids. deconditioning: Multifactorial. Will need rehab at discharge. discharge once clinically appropriate 38 minutes critical care time, requiring BIPaP to sustain life, organ system failure present
[2020-06-03] MEDS ORDERED: Aluminum & Magnesium Hydroxide 60 ML, Lidocaine 2% Viscous Solution 30 ML, diphenhydrAM... SSW PRN (13:51)
[2020-06-03 14:29] LABS: #Lymphocytes 0.7 thou/uL (1.20-3.40); #Monocytes 0.4 thou/uL (0.11-0.59); #Neutrophils 11.8 thou/uL (1.40-6.50); %Lymphocytes 5.7 % (21.0-51.0); %Monocytes 3.3 % (0.0-10.0); Hemoglobin 11.3 g/dL (12.0-16.0); Mean Corpuscular Hemoglobin 32.5 pg (27.0-31.0); Mean Corpuscular Volume 98.5 fL (78.0-98.0); Mean Platelet Volume 9.9 fL (7.4-10.4); Platelet Count 171 thou/uL (130-400); RBC Distribution Width 13.6 % (11.5-14.5); Red Blood Cell (RBC) Count 3.47 mill/uL (4.20-5.40); White Blood Cell (WBC) Count 12.9 thou/uL (4.8-10.8)
[2020-06-03 14:51] LABS: Anion Gap 23 mmol/L (10-20); BUN (Urea Nitrogen) 81 mg/dL (9.8-20.1); Calc. Creatinine Clearance 9 mL/min (70-130); Calcium 8.6 mg/dL (7.8-10.44); Carbon Dioxide 24 mmol/L (23-31); Chloride 94 mmol/L (98-107); Glucose 254 mg/dL (83-110); Magnesium 2.3 mg/dL (1.6-2.6); Phosphorus 6.6 mg/dL (2.3-4.7); Potassium 5.4 mmol/L (3.5-5.1); Sodium 136 mmol/L (136-145)
[2020-06-03] MEDS: Insulin Glargine 20 UNITS in Pre-Filled Syringe 1 EACH SC SCH (16:37)
[2020-06-03 18:12] LABS: O2 Tension (PaO2), arterial 56.6 mmHg (> 70.0); Puncture Site RBA
[2020-06-03] MEDS: Famotidine 20 MG TAB PO SCH (20:10)
[2020-06-03] MEDS: Lorazepam 0.5 MG TAB PO PRN (20:10)
[2020-06-03] MEDS: Insulin Glargine 50 UNITS in Pre-Filled Syringe 1 EACH SC SCH (20:11)
[2020-06-04] MEDS ORDERED: Lorazepam 2 MG/ML VIAL SLOW IVP SCH (00:45)
[2020-06-04 04:01] LABS: #Lymphocytes 0.7 thou/uL (1.20-3.40); #Monocytes 0.7 thou/uL (0.11-0.59); #Neutrophils 13.4 thou/uL (1.40-6.50); %Basophils 0.2 % (0.0-1.0); %Lymphocytes 4.8 % (21.0-51.0); %Monocytes 4.7 % (0.0-10.0); %Neutrophils 90.3 % (42.0-75.0); Hemoglobin 10.8 g/dL (12.0-16.0); Mean Corpuscular HGB CONC 32.1 g/dL (32.0-36.0); Mean Corpuscular Hemoglobin 31.6 pg (27.0-31.0); Mean Corpuscular Volume 98.4 fL (78.0-98.0); Mean Platelet Volume 9.5 fL (7.4-10.4); Platelet Count 184 thou/uL (130-400); RBC Distribution Width 13.7 % (11.5-14.5); Red Blood Cell (RBC) Count 3.41 mill/uL (4.20-5.40); White Blood Cell (WBC) Count 14.8 thou/uL (4.8-10.8)
[2020-06-04 04:21] LABS: Anion Gap 24 mmol/L (10-20); BUN (Urea Nitrogen) 109 mg/dL (9.8-20.1); Calc. Creatinine Clearance 9 mL/min (70-130); Calcium 8.6 mg/dL (7.8-10.44); Carbon Dioxide 21 mmol/L (23-31); Chloride 93 mmol/L (98-107); Glucose 309 mg/dL (83-110); Magnesium 2.4 mg/dL (1.6-2.6); Phosphorus 7.3 mg/dL (2.3-4.7); Potassium 5.3 mmol/L (3.5-5.1); Sodium 133 mmol/L (136-145)
--- NOTE | 2020-06-04 08:55 | PRG ---
DATE OF SERVICE: Ms. Lehman is a 75-year-old white female with ESRD - on maintenance hemodialysis and was admitted for COVID pneumonia. She went to some degree of respiratory distress and for that reason, she was transferred to [facility]. She is currently on BiPAP and is oxygenating about 93%. The patient is noted to be quite anxious. OBJECTIVE: VITAL SIGNS: Blood pressure is 147/60, heart rate 71, respiratory rate 22, O2 saturation 97%. GENERAL: The patient is awake, in mild respiratory distress. SKIN: Adequate turgor. HEENT: She has pinkish conjunctivae. Anicteric sclerae. No neck mass. No carotid bruits. No JVD. CHEST: No deformities. LUNGS: Harsh breath sounds. HEART: Normal sinus rhythm. No murmur. No gallops. No rubs. ABDOMEN: Globular, soft, nontender. No masses. EXTREMITIES: No edema. No deformities. MEDICATIONS: June 04, 2020, reviewed. LABORATORY DATA: June 04, 2020; white count 14.8, hemoglobin 10.8, sodium 133, potassium 5.3, chloride 93, carbon dioxide 21, BUN 109, creatinine 9.39, glucose 309, calcium is 8.6, phosphorus is 7.3, magnesium 2.4. ASSESSMENT AND PLAN: 1. Hyperphosphatemia. We will resume back the patient's Renvela at 1600 mg one tablet t.i.d. with meals. 2. COVID-19 pneumonia. Continue supportive care, on IV steroids. 3. End-stage renal disease/shortness of breath-we will max out fluid removal as tolerated by the patient. Attempt 3 L fluid removal with dialysis today. Case discussed with the dialysis team this morning. 4. Overall prognosis remains guarded. Job ID: [id number]
[2020-06-04] MEDS: NIFEdipine XL 30 MG TAB PO SCH (10:19)
[2020-06-04] MEDS: Dexamethasone 4 MG TAB PO SCH (10:19)
[2020-06-04] MEDS: Apixaban 2.5 MG TAB PO SCH ×2 (10:19→20:34)
[2020-06-04] MEDS: Calcitriol 0.25 MCG CAP PO SCH (10:19)
[2020-06-04] MEDS: Atorvastatin Calcium 40 MG TAB PO SCH (10:20)
[2020-06-04] MEDS: Carvedilol 6.25 MG TAB PO SCH ×2 (10:20→18:55)
[2020-06-04] MEDS: Aspirin Chewable 81 MG TAB PO SCH (10:21)
[2020-06-04 10:42] LABS: Actual Bicarbonate (HCO3a) 27.6 mEq/L (22-28); Base Excess (BEa) 3.1 mEq/L (-2.0 to +3.0); CO2 Tension 42.1 mmHg (35.0-45.0); Calcium, Ionized (arterial) 1.12 mmol/L (1.12-1.30); Carboxyhemoglobin (COHb) 0.7 gm% (0.0-3.0); Hemoglobin (Hb) 13.6 g/dL (12.0-16.0); Potassium - ABG Lab 3.66 mmol/L (3.70-5.30); pH, Arterial 7.44 (7.35-7.45)
--- NOTE | 2020-06-04 11:33 | PDOC.HOSPP ---
- Subjective Encounter Date: 06/04/20 Encounter Time: 11:00 Subjective: patient removed bipap this morning, despite HD nurse attempting to intervene, she then went into brief <1 minutes PEA arrest until BIPAP could be reapplied, patient then returned to normal and is now restrained in soft arm restraints, no distress, answering questions, satting in 90-95% range. denies chest pain/shortness of breath. Son updated. - Objective Vital Signs & Weight: Vital Signs (12 hours) Temp Pulse Pulse Ox 06/04/20 10:19 76 06/04/20 03:50 76 06/04/20 03:45 98.5 F 06/04/20 00:00 90 L 06/03/20 23:46 98.2 F Weight Admit Weight 233 lb 3.984 oz Weight 233 lb 3.985 oz Most Recent Monitor Data Heart Rate from ECG 102 NIBP 103/60 NIBP BP-Mean 74 Respiration from ECG 32 SpO2 91 I&O: 06/03/20 06/04/20 06/05/20 06:59 06:59 06:59 Intake Total 720 Balance 720 Result Diagrams: 06/04/20 03:09 06/04/20 03:09 Additional Labs: Accuchecks 06/04/20 06/03/20 06/03/20 05:34 20:20 16:39 POC Glucose 253 H 309 H 289 H 06/02/20 05/31/20 11:06 15:29 POC Glucose 266 H 492 H Hospitalist ROS - Medication Medications: Active Medications Generic Name Dose Route Start Last Admin Trade Name Freq PRN Reason Stop Dose Admin Acetaminophen 1,000 mg 05/25/20 19:15 05/29/20 08:48 Acetaminophen 500 Mg Tab PO 1,000 mg Q6H PRN Administration Mild Pain (1-3) Apixaban 2.5 mg 05/25/20 21:00 06/04/20 10:19 Apixaban 2.5 Mg Tab PO 2.5 mg BID REJI Administration Aspirin 81 mg 05/26/20 09:00 06/04/20 10:21 Aspirin Chewable 81 Mg Tab PO 81 mg DAILY REJI Administration Atorvastatin Calcium 80 mg 05/26/20 09:00 06/04/20 10:20 Atorvastatin Calcium 40 Mg Tab PO 80 mg DAILY REJI Administration Benzonatate 100 mg 05/25/20 19:15 06/01/20 20:20 Benzonatate 100 Mg Cap PO 100 mg Q6H PRN Administration Cough Calcitriol 0.25 mcg 05/26/20 09:00 06/04/20 10:19 Calcitriol 0.25 Mcg Cap PO 0.25 mcg DAILY REJI Administration Carvedilol 3.125 mg 05/26/20 08:00 06/04/20 10:20 Carvedilol 6.25 Mg Tab PO 3.125 mg BID-WM REJI Administration Dexamethasone 6 mg 05/31/20 09:00 06/04/20 10:19 Dexamethasone 4 Mg Tab PO 6 mg QAM REJI Administration Famotidine 20 mg 05/26/20 21:00 06/03/20 20:10 Famotidine 20 Mg Tab PO 20 mg HS REJI Administration Guaifenesin 200 mg 05/25/20 19:15 06/01/20 00:52 Diabetic Tussin 200 Mg/10 Ml Udcup PO 200 mg Q4H PRN Administration Cough Insulin Glargine 50 units/ 0.5 mls @ 0 mls/hr 05/30/20 21:00 06/03/20 20:11 Miscellaneous Medication SC 0.5 mls HS REJI Administration Ibuprofen 400 mg 05/25/20 19:15 05/28/20 14:48 Ibuprofen 200 Mg Tab PO 400 mg Q4H PRN Administration Fever > 101 Insulin Human Lispro 0 units 05/25/20 19:15 06/03/20 20:21 Humalog 300 Units/3 Ml Vial SC 4 unit .BEDTIME SLIDING SC PRN Administration Bedtime Correctional Scale Lorazepam 0.25 mg 05/27/20 12:40 06/03/20 20:10 Lorazepam 0.5 Mg Tab PO 0.25 mg Q4H PRN Administration Anxiety Nifedipine 30 mg 05/26/20 09:00 06/04/20 10:19 Nifedipine Xl 30 Mg Tab PO 30 mg DAILY REJI Administration Sodium Chloride 10 ml 06/01/20 09:00 06/04/20 10:21 Flush - Normal Saline 10 Ml Syringe IVF 10 ml Q12HR REJI Administration - Exam General Appearance: NAD, awake alert General - other findings: on bipap, restraints Eye: PERRL, anicteric sclera ENT: normocephalic atraumatic, no oropharyngeal lesions, moist mucosa Neck: supple, symmetric, no JVD, no thyromegaly, no lymphadenopathy, no carotid bruit Heart: RRR, no murmur, no gallops, no rubs, normal peripheral pulses Respiratory: CTAB, no wheezes, no rales, no ronchi, normal chest expansion, no tachypnea, normal percussion Gastrointestinal: soft, non-tender, non-distended, normal bowel sounds, no palpable masses, no hepatomegaly, no splenomegaly, no bruit Extremities: no cyanosis, no clubbing, no edema Skin: normal turgor, no lesions, no rashes Neurological: cranial nerve grossly intact, normal sensation to touch, no weakness, no focal deficits, no new deficit Musculoskeletal: normal tone, normal strength, no muscle wasting Psychiatric: normal affect, normal behavior, A&O x 3 Hosp A/P (1) Physical deconditioning Code(s): R53.81 - OTHER MALAISE Status: Acute (2) Pneumonia due to COVID-19 virus Code(s): U07.1 - COVID-19; J12.89 - OTHER VIRAL PNEUMONIA Status: Acute (3) Atrial fibrillation Code(s): I48.91 - UNSPECIFIED ATRIAL FIBRILLATION Status: Chronic (4) Acute bronchitis with COPD Code(s): J44.0 - CHR OBSTRUCTIVE PULMON DISEASE WITH (ACUTE) LOWER RESP INFCT Status: Acute (5) Acute hypoxemic respiratory failure Code(s): J96.01 - ACUTE RESPIRATORY FAILURE WITH HYPOXIA Status: Acute (6) Myoclonus Code(s): G25.3 - MYOCLONUS Status: Acute - Plan acute hypoxic respiratory failure: Secondary to Covid 19 pneumonia. Patient remains hypoxic requiring supplemental oxygen, required bipap and ativan overnight, now on high flow - 06/04:patient removed bipap this morning, despite HD nurse attempting to intervene, she then went into brief <1 minutes PEA arrest until BIPAP could be reapplied, patient then returned to normal and is now restrained in soft arm restraints, no distress, answering questions, satting in 90-95% range. - son updated over phone Covid 19 pneumonia: Continue with Decadron. continue with supplemental oxygen. she is on anticoagulation with Eliquis. # hyperkalemia - underwent shorter HD session last time on request, may need to go back to previous longer HD to improve K, will trend daily and communicate with nephrology if continues to worsen diabetes mellitus: hyperglycemia likely secondary to Decadron. on long acting insulin and SS. will adjust as needed - increased long and short acting doses, follow response for 24 hours before more changes Atrial fibrillation: Rate controlled. She is on anticoagulation with Eliquis. End-stage renal disease: Continue to follow with nephrology and dialysis as needed. hypertension: Adequate control. Continue current medications. Myoclonus: Suspect benign and likely related to steroids. deconditioning: Multifactorial. Will need rehab at discharge. discharge once clinically appropriate 33 minutes critical care time, requiring BIPaP to sustain life, organ system failure present
[2020-06-04 11:57] LABS: ALV-art Gradient 598.375 mmHg (0-20); Puncture Site RRA
--- NOTE | 2020-06-04 12:35 | RAD ---
XR Chest 1 View Portable History: Pneumonia Comparison: Radiograph May 30, 2020 Findings: Heart size is enlarged. Multifocal airspace opacities are similar. No pneumothorax. No pneu momediastinum. Impression: Similar multifocal pneumonia.
--- NOTE | 2020-06-04 13:41 | CON ---
DATE OF CONSULTATION: HISTORY OF PRESENT ILLNESS: Marielle castellanos is a 75-year-old female with end-stage renal disease, on dialysis. She took her BiPAP off until this morning, became hypoxemic, bradycardic. Luis E Ochoa was called in. No medication was given. She was placed back on the BiPAP with relatively stable vital signs. She is now undergoing dialysis. She has seen Dr. Shepard in the office. She was admitted on 05/25/2020 with a new diagnosis of baptiste positive pneumonia. She is day #10 in the hospital. It is unclear what medicine she has received. I was trying to review all her medical records. She does have a history of asthma, though. She is not on remdesivir at this stage. It is unclear whether she received that. She is only on Decadron by mouth, neb treatments, anticoagulation. Last x-ray shows bilateral pulmonary infiltrates. She also was seen by Neurology on the of this month, a week ago for weakness. [place] it was metabolic in nature. PAST MEDICAL HISTORY AND SURGICAL SURGERY: End-stage renal disease, chronic asthma, obesity, deconditioning, hypertension, hyperlipidemia, morbid obesity, CHF, access secondary to diabetic nephropathy, breast cancer, gout, uterine cancer, COPD, cervical cancer, nephrectomy, cardiac cath, CABG, back surgery, mastectomy, left breast biopsy. SOCIAL HISTORY: No recent alcohol or tobacco abuse. HOME MEDICATIONS: Include: 1. Eliquis 2.5 b.i.d. 2. Procardia 30. 3. Imdur 60. 4. Insulin. ALLERGIES: CODEINE, MORPHINE. REVIEW OF SYSTEMS: 10-point negative. PHYSICAL EXAMINATION: VITAL SIGNS: Back on the BiPAP, saturations are 92%, pulse 76, blood pressure 130/80, and respiratory rate 18. CHEST: Bilateral rhonchi, crackles. CARDIAC: Normal S1, S2. No gallop. ABDOMEN: No masses. LABORATORY DATA: White count 14,000, H and H and platelet count 184. BUN and creatinine . IMPRESSION: Baptiste positive pneumonia, respiratory failure, and hypoxemia. PLAN: Pulmonary balderas, baseline x-ray being ordered. If she has not received convalescent plasma, one is being ordered today. We will notify Dr. Shepard, who has seen in the past. Supportive care. 45 minutes of critical care time. Consultation note, 70 minutes, 50% direct patient care. Job ID: [id number]
[2020-06-04] MEDS: Insulin Glargine 30 UNITS in Pre-Filled Syringe 1 EACH SC SCH (14:27)
[2020-06-04] MEDS ORDERED: Lorazepam 2 MG/ML VIAL ONE (14:37)
[2020-06-04] MEDS: Mometasone 200 MCG/Formoterol 5 MCG 120 PUFF INHALER INH SCH (18:56)
[2020-06-04] MEDS: Lorazepam 2 MG/ML VIAL SLOW IVP PRN (20:13)
[2020-06-04] MEDS: Famotidine 20 MG TAB PO SCH (20:34)
[2020-06-04] MEDS: Insulin Glargine 50 UNITS in Pre-Filled Syringe 1 EACH SC SCH (20:40)
[2020-06-05] MEDS: Lorazepam 2 MG/ML VIAL SLOW IVP PRN ×2 (00:11→06:43)
[2020-06-05] MEDS: Dextrose 50% Abboject 50 ML SYRINGE SLOW IVP PRN ×3 (01:00→22:28)
[2020-06-05 04:08] LABS: Anion Gap 25 mmol/L (10-20); BUN (Urea Nitrogen) 74 mg/dL (9.8-20.1); Calc. Creatinine Clearance 11 mL/min (70-130); Calcium 8.9 mg/dL (7.8-10.44); Carbon Dioxide 25 mmol/L (23-31); Chloride 94 mmol/L (98-107); Glucose 100 mg/dL (83-110); Magnesium 2.1 mg/dL (1.6-2.6); Potassium 4.5 mmol/L (3.5-5.1); Sodium 139 mmol/L (136-145)
[2020-06-05 04:16] LABS: Band 1 % (5-11); Hemoglobin 12.1 g/dL (12.0-16.0); Lymphocytes 7 % (21-51); MDiff Complete? YES; Mean Corpuscular HGB CONC 32.2 g/dL (32.0-36.0); Mean Corpuscular Hemoglobin 31.6 pg (27.0-31.0); Mean Platelet Volume 9.5 fL (7.4-10.4); Monocytes 4 % (0-10); Neutrophil 88 % (42-75); Platelet Count 178 thou/uL (130-400); Platelet Morphology Comment Appears Adequate; RBC Morphology Normal; Red Blood Cell (RBC) Count 3.84 mill/uL (4.20-5.40); White Blood Cell (WBC) Count 16.4 thou/uL (4.8-10.8)
[2020-06-05] MEDS: Mometasone 200 MCG/Formoterol 5 MCG 120 PUFF INHALER INH SCH ×2 (07:07→18:43)
[2020-06-05] MEDS: Insulin Glargine 30 UNITS in Pre-Filled Syringe 1 EACH SC SCH (08:56)
--- NOTE | 2020-06-05 09:11 | PRG ---
DATE OF SERVICE: 06/05/2020 SUBJECTIVE: Marielle Lehman is a 75-year-old female with renal failure. OBJECTIVE: VITAL SIGNS: This morning, temperature 98, pulse 98, respirations 14. She is on BiPAP, saturations are 94%. CHEST: Bilateral rhonchi, crackles. CARDIAC: Normal S1, S2. No gallops. ABDOMEN: No masses. LABORATORY DATA: Creatinine is 7, [place] [address]. ASSESSMENT: Baptiste positive pneumonia, respiratory failure, renal failure. PLAN: Try and wean her off the BiPAP as possible, try her back on high-flow if possible. Continue Decadron, empiric antibiotics. Supportive care. We will follow. Job ID: [id number]
[2020-06-05] MEDS: Cefepime 0.5 GM, Admixture Fee 1 EACH in Sodium Chloride 0.9% 100 ML IVPB SCH ×2 (09:24→19:55)
--- NOTE | 2020-06-05 09:40 | PRG ---
DATE OF SERVICE: 06/05/2020 SUBJECTIVE: Review of the clinical course in the last 24 hours was noted. The patient was severely agitated yesterday. She was on BiPAP and plan to intubate her was considered. However, after careful decision by the team including Dr. Domingo, it was decided to simply observe her on BiPAP without intubating her. This morning, she is still noted to be restless and not following commands. She did undergo hemodialysis yesterday. OBJECTIVE: VITAL SIGNS: Blood pressure is 111/79 with a heart rate of 107. O2 saturation is 92%. GENERAL: The patient is agitated and not following commands. Noted to be on BiPAP. SKIN: Adequate turgor. HEENT: She has pinkish conjunctivae. Anicteric sclerae. NECK: No neck mass. No carotid bruits. No JVD. CHEST: No deformities. LUNGS: Decreased breath sounds. HEART: Normal sinus rhythm. No murmur. No gallops. No rubs. ABDOMEN: Globular, soft, nontender. No masses. EXTREMITIES: Trace edema. MEDICATIONS: June 05, 2020, was reviewed. LABORATORY DATA: Laboratories of June 05, 2020, white count 16.4, hemoglobin 12.1. Sodium 139, potassium 4.5, chloride 94, carbon dioxide 25, BUN 74, creatinine 7.51, glucose 100, phosphorus is 6.0. ASSESSMENT AND PLAN: 1. End-stage renal disease, stable. No indication for any emergent hemodialysis today. Review of the chest x-ray showed multifocal pneumonia. Our plan is to resume back hemodialysis in a.m. We will plan again to do a 3-hour hemodialysis with fluid removal as tolerated by the patient. 2. COVID-19 pneumonia - continue supportive care. Currently on empiric IV antibiotics as well as an IV Decadron. 3. Chronic anemia - hemoglobin noted 12.1. No indication for any Epogen to be given today. 4. Agitation - this could be from metabolic encephalopathy from her underlying viral infection. Overall prognosis remains guarded. Job ID: [id number]
[2020-06-05] MEDS: Carvedilol 6.25 MG TAB PO SCH ×2 (09:44→17:10)
[2020-06-05] MEDS: Apixaban 2.5 MG TAB PO SCH ×2 (09:44→19:55)
[2020-06-05] MEDS: Atorvastatin Calcium 40 MG TAB PO SCH (09:45)
[2020-06-05] MEDS: Calcitriol 0.25 MCG CAP PO SCH (09:45)
[2020-06-05] MEDS: Dexamethasone 4 MG TAB PO SCH (09:45)
[2020-06-05] MEDS: Aspirin Chewable 81 MG TAB PO SCH (09:45)
[2020-06-05] MEDS: NIFEdipine XL 30 MG TAB PO SCH (09:46)
--- NOTE | 2020-06-05 15:12 | PDOC.HOSPP ---
- Subjective Encounter Date: 06/05/20 Encounter Time: 07:40 Subjective: patient in bed, less anxious, tolerating BIPAP, no issues overnight. - Objective Vital Signs & Weight: Vital Signs (12 hours) Temp Pulse Resp Pulse Ox 06/05/20 13:00 94 L 06/05/20 12:19 97.7 F 06/05/20 11:00 91 L 06/05/20 09:00 97.9 F 06/05/20 08:10 93 L 06/05/20 07:56 98 44 H 06/05/20 03:57 98.5 F 06/05/20 03:26 85 33 H 98 Weight Admit Weight 233 lb 3.984 oz Weight 233 lb 3.985 oz Most Recent Monitor Data Heart Rate from ECG 103 NIBP 134/73 NIBP BP-Mean 93 Respiration from ECG 18 SpO2 96 I&O: 06/04/20 06/05/20 06/06/20 06:59 06:59 06:59 Intake Total 240 Output Total 3400 Balance -3160 Result Diagrams: 06/05/20 03:24 06/05/20 03:24 Additional Labs: Accuchecks 06/05/20 06/05/20 06/05/20 11:18 08:38 06:32 POC Glucose 106 H 136 H 74 06/05/20 06/04/20 00:46 20:38 POC Glucose 85 109 H Radiology Reviewed by me: Yes Hospitalist ROS - Medication Medications: Active Medications Generic Name Dose Route Start Last Admin Trade Name Freq PRN Reason Stop Dose Admin Acetaminophen 1,000 mg 05/25/20 19:15 05/29/20 08:48 Acetaminophen 500 Mg Tab PO 1,000 mg Q6H PRN Administration Mild Pain (1-3) Apixaban 2.5 mg 05/25/20 21:00 06/05/20 09:44 Apixaban 2.5 Mg Tab PO Not Given BID REJI Aspirin 81 mg 05/26/20 09:00 06/05/20 09:45 Aspirin Chewable 81 Mg Tab PO Not Given DAILY REJI Atorvastatin Calcium 80 mg 05/26/20 09:00 06/05/20 09:45 Atorvastatin Calcium 40 Mg Tab PO Not Given DAILY REJI Benzonatate 100 mg 05/25/20 19:15 06/01/20 20:20 Benzonatate 100 Mg Cap PO 100 mg Q6H PRN Administration Cough Calcitriol 0.25 mcg 05/26/20 09:00 06/05/20 09:45 Calcitriol 0.25 Mcg Cap PO Not Given DAILY REJI Carvedilol 3.125 mg 05/26/20 08:00 06/05/20 09:44 Carvedilol 6.25 Mg Tab PO Not Given BID-WM REJI Dexamethasone 6 mg 05/31/20 09:00 06/05/20 09:45 Dexamethasone 4 Mg Tab PO Not Given QAM REJI Dextrose/Water 25 gm 05/25/20 19:15 06/05/20 06:41 Dextrose 50% Abboject 50 Ml Syringe SLOW IVP 25 gm PRN PRN Administration Hypoglycemia Famotidine 20 mg 05/26/20 21:00 06/04/20 20:34 Famotidine 20 Mg Tab PO Not Given HS REJI Guaifenesin 200 mg 05/25/20 19:15 06/01/20 00:52 Diabetic Tussin 200 Mg/10 Ml Udcup PO 200 mg Q4H PRN Administration Cough Insulin Glargine 50 units/ 0.5 mls @ 0 mls/hr 05/30/20 21:00 06/04/20 20:40 Miscellaneous Medication SC Not Given HS REJI Insulin Glargine 30 units/ 0.3 mls @ 0 mls/hr 06/04/20 09:00 06/05/20 08:56 Miscellaneous Medication SC Not Given QAM REJI As Directed Cefepime HCl 0.5 gm/ 100 mls @ 200 mls/hr 06/05/20 09:00 06/05/20 09:24 Miscellaneous Medication 1 IVPB 06/12/20 09:01 100 mls each/ Sodium Chloride Q12HR REJI Administration Ibuprofen 400 mg 05/25/20 19:15 05/28/20 14:48 Ibuprofen 200 Mg Tab PO 400 mg Q4H PRN Administration Fever > 101 Insulin Human Lispro 0 units 05/25/20 19:15 06/03/20 20:21 Humalog 300 Units/3 Ml Vial SC 4 unit .BEDTIME SLIDING SC PRN Administration Bedtime Correctional Scale Lorazepam 0.25 mg 05/27/20 12:40 06/03/20 20:10 Lorazepam 0.5 Mg Tab PO 0.25 mg Q4H PRN Administration Anxiety Lorazepam 1 mg 06/04/20 14:37 06/05/20 06:43 Lorazepam 2 Mg/Ml Vial SLOW IVP 1 mg Q4H PRN Administration Anxiety/Agitation Mometasone Furoate/Formoterol Fumar 2 puff 06/04/20 18:30 06/05/20 07:07 Mometasone 200 Mcg/Formoterol 5 Mcg 120 Puff Inhaler INH Not Given BID-RT REJI Nifedipine 30 mg 05/26/20 09:00 06/05/20 09:46 Nifedipine Xl 30 Mg Tab PO Not Given DAILY REJI Sodium Chloride 10 ml 06/01/20 09:00 06/05/20 09:52 Flush - Normal Saline 10 Ml Syringe IVF 10 ml Q12HR REJI Administration - Exam General Appearance: NAD, ill appearing General - other findings: on bipap Eye: PERRL, anicteric sclera ENT: normocephalic atraumatic, moist mucosa Neck: supple, no JVD Heart: RRR, no murmur, no gallops, no rubs Respiratory: CTAB, no wheezes, no rales, no ronchi Gastrointestinal: soft, non-tender Extremities: no cyanosis, no clubbing, no edema Skin: no lesions, no rashes Neurological: cranial nerve grossly intact, normal sensation to touch, no weakness Musculoskeletal: normal tone, normal strength Psychiatric: not oriented Hosp A/P (1) Physical deconditioning Code(s): R53.81 - OTHER MALAISE Status: Acute (2) Pneumonia due to COVID-19 virus Code(s): U07.1 - COVID-19; J12.89 - OTHER VIRAL PNEUMONIA Status: Acute (3) Atrial fibrillation Code(s): I48.91 - UNSPECIFIED ATRIAL FIBRILLATION Status: Chronic (4) Acute bronchitis with COPD Code(s): J44.0 - CHR OBSTRUCTIVE PULMON DISEASE WITH (ACUTE) LOWER RESP INFCT Status: Acute (5) Acute hypoxemic respiratory failure Code(s): J96.01 - ACUTE RESPIRATORY FAILURE WITH HYPOXIA Status: Acute (6) Myoclonus Code(s): G25.3 - MYOCLONUS Status: Acute - Plan acute hypoxic respiratory failure: Secondary to Covid 19 pneumonia. Patient remains hypoxic requiring supplemental oxygen, required bipap and ativan overnight, now on high flow 06/04:patient removed bipap this morning, despite HD nurse attempting to int ervene, she then went into brief <1 minutes PEA arrest until BIPAP could be reapplied, patient then returned to normal and is now restrained in soft arm restraints, no distress, answering questions, satting in 90-95% range. - son updated over phone Covid 19 pneumonia: Continue with Decadron/abx. continue with supplemental oxygen. she is on anticoagulation with Eliquis. - appreciate pulmonary assistance # hyperkalemia - resolved, appreciate nephrology assistance with HD while inpatient diabetes mellitus: hyperglycemia likely secondary to Decadron. on long acting insulin and SS. will adjust as needed - conitnue new higher insulin doses Atrial fibrillation: Rate controlled. She is on anticoagulation with Eliquis. End-stage renal disease: Continue to follow with nephrology and dialysis as needed. hypertension: Adequate control. Continue current medications. Myoclonus: Suspect benign and likely related to steroids. deconditioning: Multifactorial. Will need rehab at discharge. discharge once clinically appropriate
[2020-06-05] MEDS: Insulin Glargine 50 UNITS in Pre-Filled Syringe 1 EACH SC SCH (20:30)
[2020-06-05] MEDS: Famotidine 20 MG TAB PO SCH (20:30)
[2020-06-06 04:26] LABS: #Lymphocytes 0.8 thou/uL (1.20-3.40); #Monocytes 0.8 thou/uL (0.11-0.59); #Neutrophils 11.3 thou/uL (1.40-6.50); %Basophils 0.1 % (0.0-1.0); %Eosinophils 0.2 % (0.0-10.0); %Lymphocytes 5.9 % (21.0-51.0); %Monocytes 5.8 % (0.0-10.0); Hemoglobin 11.7 g/dL (12.0-16.0); Mean Corpuscular HGB CONC 31.9 g/dL (32.0-36.0); Mean Corpuscular Hemoglobin 31.5 pg (27.0-31.0); Mean Corpuscular Volume 98.8 fL (78.0-98.0); Mean Platelet Volume 9.6 fL (7.4-10.4); Platelet Count 169 thou/uL (130-400); RBC Distribution Width 13.9 % (11.5-14.5); Red Blood Cell (RBC) Count 3.72 mill/uL (4.20-5.40); White Blood Cell (WBC) Count 12.8 thou/uL (4.8-10.8)
[2020-06-06 04:54] LABS: Anion Gap 27 mmol/L (10-20); BUN (Urea Nitrogen) 107 mg/dL (9.8-20.1); Calc. Creatinine Clearance 8 mL/min (70-130); Calcium 9.1 mg/dL (7.8-10.44); Carbon Dioxide 22 mmol/L (23-31); Chloride 99 mmol/L (98-107); Glucose 79 mg/dL (83-110); Magnesium 2.5 mg/dL (1.6-2.6); Phosphorus 8.3 mg/dL (2.3-4.7); Potassium 5.2 mmol/L (3.5-5.1); Sodium 143 mmol/L (136-145)
[2020-06-06] MEDS: Mometasone 200 MCG/Formoterol 5 MCG 120 PUFF INHALER INH SCH ×2 (05:54→19:17)
[2020-06-06] MEDS: Cefepime 0.5 GM, Admixture Fee 1 EACH in Sodium Chloride 0.9% 100 ML IVPB SCH ×2 (08:41→20:43)
[2020-06-06] MEDS: Carvedilol 6.25 MG TAB PO SCH ×2 (08:59→17:39)
[2020-06-06] MEDS: Apixaban 2.5 MG TAB PO SCH ×2 (09:00→20:36)
[2020-06-06] MEDS: Calcitriol 0.25 MCG CAP PO SCH (09:00)
[2020-06-06] MEDS: Atorvastatin Calcium 40 MG TAB PO SCH (09:00)
[2020-06-06] MEDS: Aspirin Chewable 81 MG TAB PO SCH (09:00)
[2020-06-06] MEDS: Dexamethasone 4 MG TAB PO SCH (09:01)
[2020-06-06] MEDS: Insulin Glargine 30 UNITS in Pre-Filled Syringe 1 EACH SC SCH (09:01)
[2020-06-06] MEDS: NIFEdipine XL 30 MG TAB PO SCH (09:02)
--- NOTE | 2020-06-06 09:16 | PRG ---
DATE OF SERVICE: 06/06/2020 SUBJECTIVE: This morning, more responsive, awake, BiPAP. OBJECTIVE: VITAL SIGNS: Temperature 97, oxygen saturation is better 100%, blood pressure 140/70, respiratory rate 18. CHEST: Rhonchi, crackles. CARDIAC: Normal S1 and S2. No gallops. LABORATORY DATA: White count 12,000. Electrolytes are normal. Creatinine 9. IMAGING STUDIES: X-ray, interstitial markings. ASSESSMENT AND PLAN: Fluid overload, respiratory failure, congestive heart failure, end-stage lung disease secondary to coronavirus, chronic renal failure. Continue steroids, antibiotics, supportive care, try high-flow today, PT. One-half hour of critical time. Job ID: [id number]
--- NOTE | 2020-06-06 10:04 | PRG ---
DATE OF SERVICE: 06/06/2020 SUBJECTIVE: Ms. Lehman is a 75-year-old white female with ESRD, was admitted for COVID-19 pneumonia. She was transferred to [facility] due to respiratory distress. She is currently on a BiPAP. We are following up this patient for management of her ESRD and maintenance hemodialysis. I have spoken with the dialysis nurse. I have scheduled her for 3-hour hemodialysis today with fluid removal. No acute events noted last night. OBJECTIVE: VITAL SIGNS: Blood pressure 132/81, heart rate 92, respiratory rate 21, O2 saturation 95%. GENERAL: The patient is not following verbal commands. She is on a BiPAP. HEENT: She has pinkish conjunctivae. Anicteric sclerae. NECK: No neck mass. No carotid bruits. No JVD. CHEST: No deformities. LUNGS: Decreased breath sounds. HEART: Normal sinus rhythm. No murmur. No gallops or rubs. ABDOMEN: Globular, soft, nontender. No masses. EXTREMITIES: No edema, no deformities. MEDICATIONS: June 06, 2020, reviewed. LABORATORY DATA: June 06, 2020; white count 12.8, hemoglobin 11.7, sodium 143, potassium 5.2, chloride 99, carbon dioxide 22, BUN is 107, creatinine 9.71, glucose 79, phosphorus is 8.3. Calcium is 9.1. Magnesium 2.5. Hemoglobin 11.7. ASSESSMENT AND PLAN: 1. Hyperphosphatemia. We will try to address this with hemodialysis. This patient may need to be reviewed on her diet. Consider low phosphorus diet with this patient. 2. End-stage renal disease, stable. We will continue current hemodialysis regimen. Fluid removal as tolerated by the patient. We are going to attempt between 2 and 3 L of fluid removal as tolerated. 3. COVID-19 pneumonia. Continue supportive care. Currently, on BiPAP. Holding off intubation. Pulmonary is following. We will recheck CBC and basic metabolic and phosphorus level in a.m. Job ID: [id number]
--- NOTE | 2020-06-06 10:14 | RAD ---
PORTABLE CHEST: HISTORY: Pneumonia followup. CCU followup. COMPARISON: 06/04/2020. FINDINGS: There are diffuse bilateral hazy alveolar infiltrates, some of which show confluent opacities. Not i nsignificantly changed from 06/04/2020. Cardiomegaly with postop sternotomy changes. Vascular aaron ngs are prominent and stable. IMPRESSION: Persistent bilateral infiltrates. POS: AGW
--- NOTE | 2020-06-06 16:03 | PDOC.HOSPP ---
- Subjective Encounter Date: 06/06/20 Subjective: patient in bed, weak but awake and alert and opens eyes to commands. - Objective Vital Signs & Weight: Vital Signs (12 hours) Temp Pulse Resp Pulse Ox 06/06/20 13:31 97 32 H 98 06/06/20 09:04 98.1 F 06/06/20 07:40 95 Weight Admit Weight 233 lb 3.984 oz Weight 233 lb 3.985 oz Most Recent Monitor Data Heart Rate from ECG 104 NIBP 122/61 NIBP BP-Mean 81 Respiration from ECG 22 SpO2 94 I&O: 06/05/20 06/06/20 06/07/20 06:59 06:59 06:59 Intake Total 240 110 Output Total 3400 Balance -3160 110 Result Diagrams: 06/06/20 04:00 06/06/20 04:00 Additional Labs: Accuchecks 06/06/20 06/06/20 06/06/20 11:45 08:46 05:25 POC Glucose 88 116 H 67 L 06/06/20 06/05/20 06/05/20 00:21 22:20 20:00 POC Glucose 149 H 69 L 83 Radiology Reviewed by me: Yes Hospitalist ROS - Medication Medications: Active Medications Generic Name Dose Route Start Last Admin Trade Name Freq PRN Reason Stop Dose Admin Acetaminophen 1,000 mg 05/25/20 19:15 05/29/20 08:48 Acetaminophen 500 Mg Tab PO 1,000 mg Q6H PRN Administration Mild Pain (1-3) Apixaban 2.5 mg 05/25/20 21:00 06/06/20 09:00 Apixaban 2.5 Mg Tab PO Not Given BID REJI Aspirin 81 mg 05/26/20 09:00 06/06/20 09:00 Aspirin Chewable 81 Mg Tab PO Not Given DAILY REJI Atorvastatin Calcium 80 mg 05/26/20 09:00 06/06/20 09:00 Atorvastatin Calcium 40 Mg Tab PO Not Given DAILY REJI Benzonatate 100 mg 05/25/20 19:15 06/01/20 20:20 Benzonatate 100 Mg Cap PO 100 mg Q6H PRN Administration Cough Calcitriol 0.25 mcg 05/26/20 09:00 06/06/20 09:00 Calcitriol 0.25 Mcg Cap PO Not Given DAILY [facility] Carvedilol 3.125 mg 05/26/20 08:00 06/06/20 08:59 Carvedilol 6.25 Mg Tab PO Not Given BID-WM REJI Dexamethasone 6 mg 05/31/20 09:00 06/06/20 09:01 Dexamethasone 4 Mg Tab PO Not Given QAM REJI Dextrose/Water 25 gm 05/25/20 19:15 06/05/20 22:28 Dextrose 50% Abboject 50 Ml Syringe SLOW IVP 25 gm PRN PRN Administration Hypoglycemia Famotidine 20 mg 05/26/20 21:00 06/05/20 20:30 Famotidine 20 Mg Tab PO Not Given HS REJI Guaifenesin 200 mg 05/25/20 19:15 06/01/20 00:52 Diabetic Tussin 200 Mg/10 Ml Udcup PO 200 mg Q4H PRN Administration Cough Insulin Glargine 50 units/ 0.5 mls @ 0 mls/hr 05/30/20 21:00 06/05/20 20:30 Miscellaneous Medication SC Not Given HS REJI Insulin Glargine 30 units/ 0.3 mls @ 0 mls/hr 06/04/20 09:00 06/06/20 09:01 Miscellaneous Medication SC Not Given QAM REJI As Directed Cefepime HCl 0.5 gm/ 100 mls @ 200 mls/hr 06/05/20 09:00 06/06/20 08:41 Miscellaneous Medication 1 IVPB 06/12/20 09:01 100 mls each/ Sodium Chloride Q12HR REJI Administration Ibuprofen 400 mg 05/25/20 19:15 05/28/20 14:48 Ibuprofen 200 Mg Tab PO 400 mg Q4H PRN Administration Fever > 101 Insulin Human Lispro 0 units 05/25/20 19:15 06/03/20 20:21 Humalog 300 Units/3 Ml Vial SC 4 unit .BEDTIME SLIDING SC PRN Administration Bedtime Correctional Scale Lorazepam 1 mg 06/04/20 14:37 06/05/20 06:43 Lorazepam 2 Mg/Ml Vial SLOW IVP 1 mg Q4H PRN Administration Anxiety/Agitation Mometasone Furoate/Formoterol Fumar 2 puff 06/04/20 18:30 06/06/20 05:54 Mometasone 200 Mcg/Formoterol 5 Mcg 120 Puff Inhaler INH Not Given BID-RT REJI Nifedipine 30 mg 05/26/20 09:00 06/06/20 09:02 Nifedipine Xl 30 Mg Tab PO Not Given DAILY REJI Sodium Chloride 10 ml 06/01/20 09:00 06/06/20 09:03 Flush - Normal Saline 10 Ml Syringe IVF 10 ml Q12HR REJI Administration - Exam General Appearance: NAD, awake alert General - other findings: on bipap Eye: PERRL, anicteric sclera ENT: normocephalic atraumatic, no oropharyngeal lesions, moist mucosa Neck: supple, symmetric, no JVD, no thyromegaly, no lymphadenopathy, no carotid bruit Heart: RRR, no murmur, no gallops, no rubs, normal peripheral pulses Respiratory: CTAB, no wheezes, no rales, no ronchi, normal chest expansion, no tachypnea, normal percussion Gastrointestinal: soft, non-tender, non-distended, normal bowel sounds, no palpable masses, no hepatomegaly, no splenomegaly, no bruit Extremities: no cyanosis, no clubbing, no edema Skin: normal turgor, no lesions, no rashes Neurological: cranial nerve grossly intact, normal sensation to touch, no weakness, no focal deficits, no new deficit Musculoskeletal: normal tone, normal strength, no muscle wasting Psychiatric: normal affect, normal behavior, A&O x 3 Hosp A/P (1) Physical deconditioning Code(s): R53.81 - OTHER MALAISE Status: Acute (2) Pneumonia due to COVID-19 virus Code(s): U07.1 - COVID-19; J12.89 - OTHER VIRAL PNEUMONIA Status: Acute (3) Atrial fibrillation Code(s): I48.91 - UNSPECIFIED ATRIAL FIBRILLATION Status: Chronic (4) Acute bronchitis with COPD Code(s): J44.0 - CHR OBSTRUCTIVE PULMON DISEASE WITH (ACUTE) LOWER RESP INFCT Status: Acute (5) Acute hypoxemic respiratory failure Code(s): J96.01 - ACUTE RESPIRATORY FAILURE WITH HYPOXIA Status: Acute (6) Myoclonus Code(s): G25.3 - MYOCLONUS Status: Acute - Plan acute hypoxic respiratory failure: Secondary to Covid 19 pneumonia. Patient remains hypoxic requiring supplemental oxygen, required bipap and ativan overnight, now on high flow 06/04:patient removed bipap this morning, despite HD nurse attempting to intervene, she then went into brief <1 minutes PEA arrest until BIPAP could be reapplied, patient then returned to normal and is now restrained in soft arm restraints, no distress, answering questions, satting in 90-95% range. - son updated over phone - continues to maintain on bipap w/ ativan davidson help w/ nerves, no further episo rowan Covid 19 pneumonia: Continue with Decadron/abx. continue with supplemental oxygen. she is on a nticoagulation with Eliquis. - appreciate pulmonary assistance # hyperkalemia - resolved, appreciate nephrology assistance with HD while inpatient diabetes mellitus: hyperglycemia likely secondary to Decadron. on long acting insulin and SS. will adjust as needed - conitnue new higher insulin doses Atrial fibrillation: Rate controlled. She is on anticoagulation with Eliquis. End-stage renal disease: Continue to follow with nephrology and dialysis as needed. hypertension: Adequate control. Continue current medications. Myoclonus: Suspect benign and likely related to steroids. deconditioning: Multifactorial. Will need rehab at discharge. discharge once clinically appropriate
[2020-06-06] MEDS: Insulin Glargine 50 UNITS in Pre-Filled Syringe 1 EACH SC SCH (20:36)
[2020-06-06] MEDS: Famotidine 20 MG TAB PO SCH (20:36)
[2020-06-07] MEDS: Mometasone 200 MCG/Formoterol 5 MCG 120 PUFF INHALER INH SCH ×2 (06:30→20:40)
[2020-06-07 06:46] LABS: #Eosinphils 0.1 thou/uL (0.0-0.7); #Lymphocytes 1.2 thou/uL (1.20-3.40); #Monocytes 0.7 thou/uL (0.11-0.59); #Neutrophils 11.8 thou/uL (1.40-6.50); %Basophils 0.2 % (0.0-1.0); %Eosinophils 0.5 % (0.0-10.0); %Lymphocytes 8.8 % (21.0-51.0); %Monocytes 5.2 % (0.0-10.0); %Neutrophils 85.3 % (42.0-75.0); Mean Corpuscular HGB CONC 32.6 g/dL (32.0-36.0); Mean Corpuscular Hemoglobin 32.2 pg (27.0-31.0); Mean Corpuscular Volume 98.8 fL (78.0-98.0); Mean Platelet Volume 9.8 fL (7.4-10.4); Platelet Count 164 thou/uL (130-400); RBC Distribution Width 14.1 % (11.5-14.5); Red Blood Cell (RBC) Count 4.03 mill/uL (4.20-5.40); White Blood Cell (WBC) Count 13.9 thou/uL (4.8-10.8)
[2020-06-07 07:06] LABS: Phosphorus 8.2 mg/dL (2.3-4.7)
[2020-06-07 08:49] LABS: Anion Gap 30 mmol/L (10-20); BUN (Urea Nitrogen) 85 mg/dL (9.8-20.1); Calc. Creatinine Clearance 9 mL/min (70-130); Calcium 8.9 mg/dL (7.8-10.44); Carbon Dioxide 19 mmol/L (23-31); Chloride 97 mmol/L (98-107); Glucose 82 mg/dL (83-110); Potassium 5.5 mmol/L (3.5-5.1); Sodium 140 mmol/L (136-145)
--- NOTE | 2020-06-07 09:20 | PRG ---
DATE OF SERVICE: 06/07/2020 SUBJECTIVE: Ms. Lehman is a 75-year-old white female with ESRD-maintenance hemodialysis, was admitted for [id number] pneumonia. Her respiratory status has worsened in the last few days. She is currently on BiPAP but not intubated. In the last 24 hours, she seems to have stabilized. She is less agitated today. No acute events noted last night. OBJECTIVE: VITAL SIGNS: Blood pressure is noted at 133/77, heart rate 89, respiratory rate 15, O2 saturation 94%. GENERAL: The patient is noted to be sleeping comfortable, on BiPAP. SKIN: Adequate turgor. HEENT: She has pinkish conjunctivae. Anicteric sclerae. NECK: No neck mass. No carotid bruits. No JVD. CHEST: No deformities. LUNGS: Decreased breath sounds. HEART: Normal sinus rhythm. No murmur. No gallops. No rubs. ABDOMEN: Globular, soft, nontender. No masses. EXTREMITIES: No edema. MEDICATIONS: From June 07, 2020, was reviewed. LABORATORY DATA: From June 07, 2020; white count 13.9, hemoglobin 13. Sodium 140, potassium 5.5, chloride 97, carbon dioxide 19, BUN 85, creatinine 8.16, glucose 82, calcium 8.9, phosphorus is still noted at 8.2. ASSESSMENT AND PLAN: 1. End-stage renal disease, stable. We will continue current Thursday, Thursday, and Thursday hemodialysis regimen. Due to the elevated phosphorus, I probably will increase her dialysis time to 3-1/2 hours tomorrow. 2. Review with the Dietary Service, feels that the high phosphorus is not related from her diet since she has decreased p.o. intake. 3. COVID-19 pneumonia. Continuing supportive care. The patient currently on steroids. Overall prognosis remains guarded with this patient. Job ID: [id number]
[2020-06-07] MEDS: Insulin Glargine 30 UNITS in Pre-Filled Syringe 1 EACH SC SCH (09:21)
[2020-06-07] MEDS: Carvedilol 6.25 MG TAB PO SCH ×2 (09:21→18:05)
[2020-06-07] MEDS: Apixaban 2.5 MG TAB PO SCH ×2 (09:22→20:40)
[2020-06-07] MEDS: Aspirin Chewable 81 MG TAB PO SCH (09:22)
[2020-06-07] MEDS: Dexamethasone 4 MG TAB PO SCH (09:22)
[2020-06-07] MEDS: Atorvastatin Calcium 40 MG TAB PO SCH (09:22)
[2020-06-07] MEDS: NIFEdipine XL 30 MG TAB PO SCH (09:23)
[2020-06-07] MEDS: Cefepime 0.5 GM, Admixture Fee 1 EACH in Sodium Chloride 0.9% 100 ML IVPB SCH ×2 (09:42→20:47)
[2020-06-07] MEDS: Calcitriol 0.25 MCG CAP PO SCH (10:21)
--- NOTE | 2020-06-07 12:57 | PDOC.HOSPP ---
- Subjective Encounter Date: 06/07/20 Subjective: Patient was seen and examined in bed. Communication was limited. She was on BiPAP. She does not answer my questions but makes spontaneous movements - Objective Vital Signs & Weight: Vital Signs (12 hours) Temp Pulse Resp Pulse Ox 06/07/20 09:44 96 21 H 98 06/07/20 09:23 97 06/07/20 08:00 94 L 06/07/20 04:46 97 06/07/20 03:37 97.7 F Weight Admit Weight 233 lb 3.984 oz Weight 219 lb 8 oz Most Recent Monitor Data Heart Rate from ECG 90 NIBP 73/42 NIBP BP-Mean 65 Respiration from ECG 22 SpO2 97 I&O: 06/06/20 06/07/20 06/08/20 06:59 06:59 06:59 Intake Total 110 230 Output Total 500 Balance 110 -270 Result Diagrams: 06/11/20 03:11 06/11/20 03:11 Additional Labs: Accuchecks 06/07/20 06/07/20 06/06/20 06:20 03:28 23:44 POC Glucose 91 94 95 06/06/20 06/06/20 06/06/20 20:16 16:40 16:13 POC Glucose 90 114 H 111 H Hospitalist ROS - Review of Systems All other systems reviewed; all pertinent +/- noted in HPI/Subj - Medication Medications: Active Medications Generic Name Dose Route Start Last Admin Trade Name Freq PRN Reason Stop Dose Admin Acetaminophen 1,000 mg 05/25/20 19:15 05/29/20 08:48 Acetaminophen 500 Mg Tab PO 1,000 mg Q6H PRN Administration Mild Pain (1-3) Apixaban 2.5 mg 05/25/20 21:00 06/07/20 09:22 Apixaban 2.5 Mg Tab PO Not Given BID REJI Aspirin 81 mg 05/26/20 09:00 06/07/20 09:22 Aspirin Chewable 81 Mg Tab PO Not Given DAILY REJI Atorvastatin Calcium 80 mg 05/26/20 09:00 06/07/20 09:22 Atorvastatin Calcium 40 Mg Tab PO Not Given DAILY REJI Benzonatate 100 mg 05/25/20 19:15 06/01/20 20:20 Benzonatate 100 Mg Cap PO 100 mg Q6H PRN Administration Cough Carvedilol 3.125 mg 05/26/20 08:00 06/07/20 09:21 Carvedilol 6.25 Mg Tab PO Not Given BID-WM REJI Dexamethasone 6 mg 05/31/20 09:00 06/07/20 09:22 Dexamethasone 4 Mg Tab PO Not Given QAM REJI Dextrose/Water 25 gm 05/25/20 19:15 06/05/20 22:28 Dextrose 50% Abboject 50 Ml Syringe SLOW IVP 25 gm PRN PRN Administration Hypoglycemia Famotidine 20 mg 05/26/20 21:00 06/06/20 20:36 Famotidine 20 Mg Tab PO Not Given HS REJI Guaifenesin 200 mg 05/25/20 19:15 06/01/20 00:52 Diabetic Tussin 200 Mg/10 Ml Udcup PO 200 mg Q4H PRN Administration Cough Insulin Glargine 50 units/ 0.5 mls @ 0 mls/hr 05/30/20 21:00 06/06/20 20:36 Miscellaneous Medication SC Not Given HS REJI Insulin Glargine 30 units/ 0.3 mls @ 0 mls/hr 06/04/20 09:00 06/07/20 09:21 Miscellaneous Medication SC Not Given QAM REJI As Directed Cefepime HCl 0.5 gm/ 100 mls @ 200 mls/hr 06/05/20 09:00 06/07/20 09:42 Miscellaneous Medication 1 IVPB 06/12/20 09:01 100 mls each/ Sodium Chloride Q12HR REJI Administration Ibuprofen 400 mg 05/25/20 19:15 05/28/20 14:48 Ibuprofen 200 Mg Tab PO 400 mg Q4H PRN Administration Fever > 101 Insulin Human Lispro 0 units 05/25/20 19:15 06/03/20 20:21 Humalog 300 Units/3 Ml Vial SC 4 unit .BEDTIME SLIDING SC PRN Administration Bedtime Correctional Scale Lorazepam 1 mg 06/04/20 14:37 06/05/20 06:43 Lorazepam 2 Mg/Ml Vial SLOW IVP 1 mg Q4H PRN Administration Anxiety/Agitation Mometasone Furoate/Formoterol Fumar 2 puff 06/04/20 18:30 06/07/20 06:30 Mometasone 200 Mcg/Formoterol 5 Mcg 120 Puff Inhaler INH Not Given BID-RT REJI Nifedipine 30 mg 05/26/20 09:00 06/07/20 09:23 Nifedipine Xl 30 Mg Tab PO Not Given DAILY REJI Sodium Chloride 10 ml 06/01/20 09:00 06/07/20 09:42 Flush - Normal Saline 10 Ml Syringe IVF 10 ml Q12HR REJI Administration - Exam General Appearance: ill appearing General - other findings: Somnolent, not answering my questions Heart: RRR, no murmur, no gallops, no rubs Respiratory - other findings: Reduced air entry bilaterally. Gastrointestinal: soft, non-distended, normal bowel sounds Extremities: no cyanosis, no clubbing, no edema Neurological - other findings: Spontaneous movement of all limbs. Not oriented Psychiatric - other findings: Confused and agitated. Generally somnolent Hosp A/P - Plan This is a 75-year-old female with a history of current artery disease, diabetes mellitus, ESRD breast cancer status post left mastectomy, COPD who was admitted on account of sepsis, and turned out to have Covid pneumonia. Currently being managed in IMCU with worsening respiratory status on BiPAP. Acute hypoxic respiratory failure Continue BiPAP Appreciate pulmonology input. Hypotension In the setting of ESRD on dialysis. She is on antibiotic coverage on cefepime We will give 250 mils bolus and recheck To start Levophed peripherally if blood pressure remains low She may require central line. Blood culture in case it could be sepsis. Pneumonia due to Covid Continue Decadron and vitamins Oxygen therapy as above. Diabetes mellitus Controlled Continue monitoring. Atrial fibrillation Continue apixaban ESRD Dialysis as needed Nephrology following. Hypertension Continue home medications. VT prophylaxistherapeutic on apixaban CODE STATUSfull code Given deteriorating status may have to rediscuss CODE STATUS with family
[2020-06-07] MEDS ORDERED: Sodium Chloride 0.9% 250 ML IV SCH (13:00)
[2020-06-07] MEDS ORDERED: Dextrose 50% Abboject 50 ML SYRINGE ONE (16:27)
[2020-06-07] MEDS: Dextrose 50% Abboject 50 ML SYRINGE SLOW IVP PRN (16:46)
[2020-06-07 17:35] LABS: Actual Bicarbonate (HCO3a) 22.4 mEq/L (22-28); Base Excess (BEa) -1.9 mEq/L (-2.0 to +3.0); CO2 Tension 36.8 mmHg (35.0-45.0); Calcium, Ionized (arterial) 1.06 mmol/L (1.12-1.30); Carboxyhemoglobin (COHb) 0.9 gm% (0.0-3.0); Hemoglobin (Hb) 12.6 g/dL (12.0-16.0); O2 Tension (PaO2), arterial 69.6 mmHg (> 70.0); Potassium - ABG Lab 5.17 mmol/L (3.70-5.30)
[2020-06-07 17:37] LABS: Puncture Site RRA
[2020-06-07] MEDS: Famotidine 20 MG TAB PO SCH (20:41)
[2020-06-07] MEDS: Insulin Glargine 50 UNITS in Pre-Filled Syringe 1 EACH SC SCH (20:48)
[2020-06-08] MEDS: Mometasone 200 MCG/Formoterol 5 MCG 120 PUFF INHALER INH SCH ×2 (06:28→19:36)
[2020-06-08] MEDS: Apixaban 2.5 MG TAB PO SCH (07:49)
[2020-06-08] MEDS: Aspirin Chewable 81 MG TAB PO SCH (07:49)
[2020-06-08] MEDS: Dexamethasone 4 MG TAB PO SCH (07:49)
[2020-06-08] MEDS: Carvedilol 6.25 MG TAB PO SCH ×2 (07:49→14:25)
[2020-06-08] MEDS: Atorvastatin Calcium 40 MG TAB PO SCH (07:49)
[2020-06-08] MEDS: NIFEdipine XL 30 MG TAB PO SCH (07:50)
[2020-06-08] MEDS: Insulin Glargine 30 UNITS in Pre-Filled Syringe 1 EACH SC SCH (07:50)
[2020-06-08 08:01] LABS: #Eosinphils 0.1 thou/uL (0.0-0.7); #Lymphocytes 1.3 thou/uL (1.20-3.40); #Neutrophils 10.8 thou/uL (1.40-6.50); %Basophils 0.1 % (0.0-1.0); %Lymphocytes 9.6 % (21.0-51.0); %Monocytes 7.3 % (0.0-10.0); Hemoglobin 11.9 g/dL (12.0-16.0); Mean Corpuscular HGB CONC 30.7 g/dL (32.0-36.0); Mean Corpuscular Hemoglobin 30.7 pg (27.0-31.0); Mean Platelet Volume 9.5 fL (7.4-10.4); Platelet Count 166 thou/uL (130-400); RBC Distribution Width 14.3 % (11.5-14.5); Red Blood Cell (RBC) Count 3.89 mill/uL (4.20-5.40); White Blood Cell (WBC) Count 13.1 thou/uL (4.8-10.8)
[2020-06-08 10:22] LABS: Anion Gap 22 mmol/L (10-20); BUN (Urea Nitrogen) 68 mg/dL (9.8-20.1); Calc. Creatinine Clearance 12 mL/min (70-130); Calcium 8.5 mg/dL (7.8-10.44); Carbon Dioxide 25 mmol/L (23-31); Chloride 100 mmol/L (98-107); Glucose 89 mg/dL (83-110); Potassium 4.1 mmol/L (3.5-5.1); Sodium 143 mmol/L (136-145)
[2020-06-08 10:44] LABS: Hep B Surf Ag Non-Reactive S/CO (NonReactive)
--- NOTE | 2020-06-08 14:43 | PRG ---
DATE OF SERVICE: 06/08/2020 SUBJECTIVE: Ms. Lehman is a 75-year-old white female with ESRD who was admitted for COVID-19 pneumonia. She has been decompensating from pulmonary point of view. She continues to be on a BiPAP. We are currently following her up for maintenance hemodialysis. Minimal fluid removal was done due to the low blood pressure. No acute events noted last night. She has also been noted to be hyperphosphatemic of unclear etiology. OBJECTIVE: VITAL SIGNS: Blood pressure is 107/58, heart rate 81, respiratory rate 17, O2 saturation 93%. GENERAL: The patient is unresponsive to verbal stimuli, on BiPAP. SKIN: Adequate turgor. HEENT: She has pinkish conjunctivae. Anicteric sclerae. No neck mass. No carotid bruits. No JVD. CHEST: No deformities. LUNGS: Decreased breath sounds. HEART: Normal sinus rhythm. No murmur. No gallops. No rubs. ABDOMEN: Globular, soft, nontender. No masses. EXTREMITIES: No edema. No deformities. MEDICATIONS: Of June 08, 2020, were reviewed. LABORATORY DATA: Laboratories of June 08, 2020: White count 13.1, hemoglobin 11.9. Sodium 143, potassium 4.1, chloride 100, carbon dioxide 25, BUN 68, creatinine 6.22, calcium 8.5. Vitamin D is 14.6. PTH is 728.9. Phosphorus is 8.2. ASSESSMENT AND PLAN: 1. Hyperphosphatemia - the patient is not currently on any nutritional supplement. Unclear etiology. No evidence of hemolysis. The patient is not on any high phosphate diet. We will continue to observe. I have extended her dialysis time to 3.5 hours to help with the hyperphosphatemia. We can still further increase it to 4 hours as needed. 2. Acute respiratory failure/COVID-19 pneumonia. Continuing supportive care. Relatively unimproved. Currently, on BiPAP. The patient is also on steroids. 3. The patient may eventually need some kind of nutritional support-NG tube or TPN/PPN. Overall, prognosis remains guarded with this patient. Continuing supportive care. 4. Secondary hyperparathyroidism. Calcitriol was started. 5. We will recheck basic metabolics, serum phosphorus in a.m. Job ID: [id number] [facility]
[2020-06-08] MEDS ORDERED: Dexamethasone 4 mg/ml Vial SLOW IVP SCH (14:45)
[2020-06-08] MEDS: Cefepime 0.5 GM, Admixture Fee 1 EACH in Sodium Chloride 0.9% 100 ML IVPB SCH ×2 (14:56→23:27)
[2020-06-08] MEDS: Dextrose 5% in Water 1,000 ML IV SCH (14:57)
[2020-06-08] MEDS: Heparin 5,000 UNITS/ML VIAL SC SCH ×2 (14:57→20:46)
[2020-06-08 16:39] LABS: Anion Gap 25 mmol/L (10-20); BUN (Urea Nitrogen) 71 mg/dL (9.8-20.1); Calc. Creatinine Clearance 11 mL/min (70-130); Calcium 8.1 mg/dL (7.8-10.44); Carbon Dioxide 22 mmol/L (23-31); Chloride 100 mmol/L (98-107); Glucose 118 mg/dL (83-110); Potassium 5.6 mmol/L (3.5-5.1); Sodium 141 mmol/L (136-145)
--- NOTE | 2020-06-08 18:52 | PDOC.HOSPP ---
- Subjective Encounter Date: 06/08/20 Subjective: Patient was seen and examined in bed. She was on BiPAP, not very responsive. No significant events overnight. - Objective Vital Signs & Weight: Vital Signs (12 hours) Temp Pulse Pulse Pulse Resp BP BP 06/08/20 16:00 97.7 F 06/08/20 14:05 79 69 93/62 90/59 L 06/08/20 09:15 97.1 F L 06/08/20 07:52 06/08/20 07:50 75 06/08/20 07:43 75 17 Pulse Ox Pulse Ox Pulse Ox 06/08/20 16:00 06/08/20 14:05 93 L 92 L 06/08/20 09:15 06/08/20 07:52 98 06/08/20 07:50 06/08/20 07:43 97 Weight Admit Weight 233 lb 3.984 oz Weight 219 lb 8 oz Most Recent Monitor Data Heart Rate from ECG 93 NIBP 105/68 NIBP BP-Mean 80 Respiration from ECG 20 SpO2 96 I&O: 06/07/20 06/08/20 06/09/20 06:59 06:59 06:59 Intake Total 230 470 Output Total 500 0 Balance -270 470 Result Diagrams: 06/08/20 07:33 06/08/20 16:14 Additional Labs: Accuchecks 06/08/20 06/08/20 06/08/20 15:10 12:20 05:15 POC Glucose 112 H 102 H 100 06/07/20 20:52 POC Glucose 124 H Hospitalist ROS - Review of Systems ROS unobtainable: due to mental status - Medication Medications: Active Medications Generic Name Dose Route Start Last Admin Trade Name Freq PRN Reason Stop Dose Admin Acetaminophen 1,000 mg 05/25/20 19:15 05/29/20 08:48 Acetaminophen 500 Mg Tab PO 1,000 mg Q6H PRN Administration Mild Pain (1-3) Aspirin 81 mg 05/26/20 09:00 06/08/20 07:49 Aspirin Chewable 81 Mg Tab PO Not Given DAILY REJI Atorvastatin Calcium 80 mg 05/26/20 09:00 06/08/20 07:49 Atorvastatin Calcium 40 Mg Tab PO Not Given DAILY REJI Benzonatate 100 mg 05/25/20 19:15 06/01/20 20:20 Benzonatate 100 Mg Cap PO 100 mg Q6H PRN Administration Cough Carvedilol 3.125 mg 05/26/20 08:00 06/08/20 14:25 Carvedilol 6.25 Mg Tab PO Not Given BID-WM REJI Dexamethasone 6 mg 05/31/20 09:00 06/08/20 07:49 Dexamethasone 4 Mg Tab PO Not Given QAM REJI Dextrose/Water 25 gm 05/25/20 19:15 06/07/20 16:46 Dextrose 50% Abboject 50 Ml Syringe SLOW IVP 25 gm PRN PRN Administration Hypoglycemia Famotidine 20 mg 05/26/20 21:00 06/07/20 20:41 Famotidine 20 Mg Tab PO Not Given HS REJI Guaifenesin 200 mg 05/25/20 19:15 06/01/20 00:52 Diabetic Tussin 200 Mg/10 Ml Udcup PO 200 mg Q4H PRN Administration Cough Heparin Sodium (Porcine) 5,000 units 06/08/20 15:00 06/08/20 14:57 Heparin 5,000 Units/Ml Vial SC 5,000 units TID REJI Administration Insulin Glargine 50 units/ 0.5 mls @ 0 mls/hr 05/30/20 21:00 06/07/20 20:48 Miscellaneous Medication SC Not Given HS REJI Insulin Glargine 30 units/ 0.3 mls @ 0 mls/hr 06/04/20 09:00 06/08/20 07:50 Miscellaneous Medication SC Not Given QAM REJI As Directed Cefepime HCl 0.5 gm/ 100 mls @ 200 mls/hr 06/05/20 09:00 06/08/20 14:56 Miscellaneous Medication 1 IVPB 06/12/20 09:01 100 mls each/ Sodium Chloride Q12HR REJI Administration Dextrose/Water 1,000 mls @ 75 mls/hr 06/08/20 14:45 06/08/20 14:57 D5w IV 1,000 mls .[id number] REJI Administration Ibuprofen 400 mg 05/25/20 19:15 05/28/20 14:48 Ibuprofen 200 Mg Tab PO 400 mg Q4H PRN Administration Fever > 101 Insulin Human Lispro 0 units 05/25/20 19:15 06/03/20 20:21 Humalog 300 Units/3 Ml Vial SC 4 unit .BEDTIME SLIDING SC PRN Administration Bedtime Correctional Scale Lorazepam 1 mg 06/04/20 14:37 06/05/20 06:43 Lorazepam 2 Mg/Ml Vial SLOW IVP 1 mg Q4H PRN Administration Anxiety/Agitation Mometasone Furoate/Formoterol Fumar 2 puff 06/04/20 18:30 06/08/20 06:28 Mometasone 200 Mcg/Formoterol 5 Mcg 120 Puff Inhaler INH Not Given BID-RT REJI Nifedipine 30 mg 05/26/20 09:00 06/08/20 07:50 Nifedipine Xl 30 Mg Tab PO Not Given DAILY REJI Sodium Chloride 10 ml 06/01/20 09:00 06/08/20 15:03 Flush - Normal Saline 10 Ml Syringe IVF 10 ml Q12HR REJI Administration - Exam General - other findings: Patient not alert oriented. Eye: PERRL, anicteric sclera Heart: RRR, no murmur, no gallops, no rubs Respiratory - other findings: Coarse breath sounds bilaterally Gastrointestinal: soft, non-tender, non-distended, normal bowel sounds, no hepatomegaly Extremities: no cyanosis, no clubbing, no edema Neurological: cranial nerve grossly intact, no focal deficits Neurological - other findings: Moves all limbs spontaneously Psychiatric - other findings: Patient however not alert oriented. Hosp A/P - Plan This is a 75-year-old female with a history of current artery disease, diabetes mellitus, ESRD breast cancer status post left mastectomy, COPD who was admitted on account of sepsis, and turned out to have Covid pneumonia. Patient is currently unable to communicate. Being managed in IMCU with worsening respiratory status on BiPAP. Acute hypoxic respiratory failure Currently between 40 and 50% Continue BiPAP Appreciate pulmonology input. Hypotension Resolved Monitor blood pressure. Pneumonia due to Covid Continue Decadron and vitamins Oxygen therapy as above. Diabetes mellitus Controlled Continue monitoring. Atrial fibrillation Continue apixaban ESRD Dialysis as needed Nephrology following. Hypertension Continue home medications. VT prophylaxistherapeutic on apixaban CODE STATUSfull code Given deteriorating status may have to rediscuss CODE STATUS with family
[2020-06-08] MEDS: Famotidine 20 MG TAB PO SCH (20:45)
[2020-06-08] MEDS: Insulin Glargine 50 UNITS in Pre-Filled Syringe 1 EACH SC SCH (20:47)
[2020-06-08] MEDS: HumaLOG 300 UNITS/3 ML VIAL SC PRN (20:58)
[2020-06-09] MEDS: HumaLOG 300 UNITS/3 ML VIAL SC PRN ×2 (04:45→16:35)
[2020-06-09] MEDS: Dextrose 5% in Water 1,000 ML IV SCH ×2 (04:45→17:58)
[2020-06-09] MEDS: Mometasone 200 MCG/Formoterol 5 MCG 120 PUFF INHALER INH SCH ×2 (05:26→20:27)
[2020-06-09 07:14] LABS: Anion Gap 26 mmol/L (10-20); BUN (Urea Nitrogen) 90 mg/dL (9.8-20.1); Calc. Creatinine Clearance 10 mL/min (70-130); Carbon Dioxide 17 mmol/L (23-31); Chloride 97 mmol/L (98-107); Glucose 241 mg/dL (83-110); Phosphorus 8.4 mg/dL (2.3-4.7); Potassium 5.8 mmol/L (3.5-5.1); Sodium 134 mmol/L (136-145)
[2020-06-09 07:40] LABS: Band 5 % (5-11); Hemoglobin 11.3 g/dL (12.0-16.0); Lymphocytes 8 % (21-51); MDiff Complete? YES; Mean Corpuscular HGB CONC 31.9 g/dL (32.0-36.0); Mean Corpuscular Hemoglobin 31.6 pg (27.0-31.0); Mean Corpuscular Volume 98.8 fL (78.0-98.0); Mean Platelet Volume 9.6 fL (7.4-10.4); Monocytes 2 % (0-10); Neutrophil 85 % (42-75); Platelet Count 159 thou/uL (130-400); RBC Distribution Width 14.2 % (11.5-14.5); Red Blood Cell (RBC) Count 3.57 mill/uL (4.20-5.40); White Blood Cell (WBC) Count 17.6 thou/uL (4.8-10.8)
--- NOTE | 2020-06-09 07:44 | PRG ---
DATE OF SERVICE: 06/08/2020 SUBJECTIVE: Marielle Lehman is being dialyzed this morning. OBJECTIVE: VITAL SIGNS: Blood pressure 107/58, sats 93%, still on BiPAP, respiratory rate 18. CHEST: No wheezing. No crackles. CARDIAC: Normal S1, S2. No gallops. ABDOMEN: No masses. IMPRESSION: Acute on chronic renal failure, respiratory failure. PLAN: Avoid intubation as much as possible. Continue supportive care, PT, empiric antibiotics, steroids. We will follow. Job ID: [id number]
[2020-06-09] MEDS: Atorvastatin Calcium 40 MG TAB PO SCH (07:50)
[2020-06-09] MEDS: Carvedilol 6.25 MG TAB PO SCH ×2 (07:50→17:58)
[2020-06-09] MEDS: Calcitriol 0.25 MCG CAP PO SCH (07:50)
[2020-06-09] MEDS: Aspirin Chewable 81 MG TAB PO SCH (07:50)
[2020-06-09] MEDS: Insulin Glargine 30 UNITS in Pre-Filled Syringe 1 EACH SC SCH (07:51)
[2020-06-09] MEDS: Dexamethasone 4 MG TAB PO SCH (07:51)
[2020-06-09] MEDS: NIFEdipine XL 30 MG TAB PO SCH (07:52)
[2020-06-09 07:53] LABS: Anion Gap 28 mmol/L (10-20); BUN (Urea Nitrogen) 94 mg/dL (9.8-20.1); Calc. Creatinine Clearance 10 mL/min (70-130); Carbon Dioxide 15 mmol/L (23-31); Chloride 100 mmol/L (98-107); Glucose 247 mg/dL (83-110); Phosphorus 8.5 mg/dL (2.3-4.7); Potassium 6.5 mmol/L (3.5-5.1); Sodium 136 mmol/L (136-145)
[2020-06-09] MEDS ORDERED: Dextrose 50% Abboject 50 ML SYRINGE SLOW IVP SCH (09:07)
[2020-06-09] MEDS ORDERED: Insulin Regular 300 UNITS/3 ML VIAL IVP SCH (09:15)
[2020-06-09] MEDS: Heparin 5,000 UNITS/ML VIAL SC SCH ×2 (09:55→16:35)
[2020-06-09] MEDS: Dexamethasone 4 mg/ml Vial SLOW IVP SCH (09:56)
--- NOTE | 2020-06-09 10:30 | PRG ---
DATE OF SERVICE: 06/09/2020 SUBJECTIVE: Ms. Lehman is a 75-year-old white female with ESRD-on maintenance hemodialysis and admitted for COVID-19 pneumonia. The patient is currently requiring high-flow O2/BiPAP. We did review her potassium today, it was noted initially to be 5.8 and repeated in one hour at 6.5. The 6.5 may be artificially elevated. However, my concern was that the potassium did not go down from yesterday where it was 5.7. I will do a repeat dialysis 3.5 hours. We will use 1.0 potassium bath on the first hour. If no significant change in her numbers, I probably will request surgery to place a temporary hemodialysis catheter. The possibility of recirculation remains with this patient. No acute events noted last night. OBJECTIVE: VITAL SIGNS: Blood pressure 144/85, heart rate 96, respiratory rate 19, O2 saturation 99%. GENERAL: The patient is awake and follows simple commands, noted to be on BiPAP. SKIN: Adequate turgor. HEENT: Pinkish conjunctivae. Anicteric sclerae. NECK: No neck mass. No carotid bruits. No JVD. CHEST: No deformities. LUNGS: Decreased breath sounds. HEART: Normal sinus rhythm. No murmur. No gallops. No rubs. ABDOMEN: Globular, soft, and nontender. No masses. EXTREMITIES: No edema. No deformities. MEDICATIONS: Medications of June 09, 2020 was reviewed. LABORATORY DATA: Laboratories of June 09, 2020; white count 17.6, hemoglobin 11.3. Sodium 136, potassium 6.5, chloride 100, carbon dioxide 15, BUN 94, creatinine 8.21. Phosphorus is 8.5. ASSESSMENT AND PLAN: 1. End-stage renal disease-repeat hemodialysis for 3.5 hours. We will use 1.0 potassium bath. If no significant improvement with the numbers, we may need to have surgery place a temporary hemodialysis catheter. 2. Hyperkalemia, hemodialysis today. 3. Hyperphosphatemia. Attempt to remove with hemodialysis. Overall prognosis remains guarded with this patient. COVID-19 pneumonia is still relatively unimproved. I discussed the case with the nursing staff, consider placing an NG tube. Job ID: [id number]
[2020-06-09] MEDS: Cefepime 0.5 GM, Admixture Fee 1 EACH in Sodium Chloride 0.9% 100 ML IVPB SCH (10:40)
--- NOTE | 2020-06-09 13:02 | PRG ---
DATE OF SERVICE: 06/09/2020 SUBJECTIVE: This morning, she is surprisingly now on high-flow, off the BiPAP, doing well. OBJECTIVE: VITAL SIGNS: Saturations are in fact 99%, blood pressure 103/65, temperature 98, pulse 80. CHEST: Decreased breath sounds. No wheezing, crackles. CARDIAC: Normal S1 and S2. No gallops. LABORATORY DATA: White count 17,000. IMPRESSION: Respiratory failure, chronic renal failure, gomez positive pneumonia, severe deconditioning. Continue present treatment, steroids, supportive care, PT. Job ID: [id number]
--- NOTE | 2020-06-09 14:36 | RAD ---
EXAM: Abdomen one view: HISTORY: Evidence for Covid pneumonia. NG tube placement position evaluation COMPARISON: None FINDINGS: An NG tube is visualized coiled back on itself extending into the distal esophagus. This needs to be pulled back and readvanced to properly into the stomach. IMPRESSION: NG tube is coiled back on itself in the distal esophagus.
--- NOTE | 2020-06-09 17:58 | RAD ---
EXAM: XR Abdomen 1 View/KUB PROVIDED CLINICAL HISTORY: Nasogastric tube placement. COMPARISON: 06/09/2020 at 1335 hours. FINDINGS: There has been interval repositioning of the nasogastric tube. The tip of the nasogastric tube now ov erlies right upper quadrant with tip overlying the expected location of the distal antrum/pylorus of the stomach. Surgical clips are again seen in the right abdomen. No other interval change. IMPRESSION: Interval repositioning of the nasogastric tube with tip now overlying the right upper quadrant and li sherwin overlying either the distal gastric antrum or pylorus.
--- NOTE | 2020-06-09 20:06 | PDOC.HOSPP ---
- Subjective Encounter Date: 06/09/20 Encounter Time: 13:00 Subjective: F/u : COVID The patient is sitting up in bed, not able to speak. Appears tachypneic. Potassium 6.5, per nephro going to receive dialysis today - Objective Vital Signs & Weight: Vital Signs (12 hours) Temp 06/09/20 11:15 98.8 F Weight Admit Weight 233 lb 3.984 oz Weight 229 lb 1 oz Most Recent Monitor Data Heart Rate from ECG 93 NIBP 101/39 NIBP BP-Mean 59 Respiration from ECG 14 SpO2 99 I&O: 06/08/20 06/09/20 06/10/20 06:59 06:59 06:59 Intake Total 470 1159 Output Total 0 0 Balance 470 1159 Result Diagrams: 06/09/20 06:41 06/09/20 07:25 Additional Labs: Accuchecks 06/09/20 06/09/20 06/09/20 16:36 11:24 04:37 POC Glucose 266 H 363 H 191 H 06/08/20 20:52 POC Glucose 214 H Hospitalist ROS - Review of Systems ROS unobtainable: due to mental status Constitutional: denies: fever, chills - Medication Medications: Active Medications Generic Name Dose Route Start Last Admin Trade Name Freq PRN Reason Stop Dose Admin Acetaminophen 1,000 mg 05/25/20 19:15 05/29/20 08:48 Acetaminophen 500 Mg Tab PO 1,000 mg Q6H PRN Administration Mild Pain (1-3) Aspirin 81 mg 05/26/20 09:00 06/09/20 07:50 Aspirin Chewable 81 Mg Tab PO Not Given DAILY [facility] Atorvastatin Calcium 80 mg 05/26/20 09:00 06/09/20 07:50 Atorvastatin Calcium 40 Mg Tab PO Not Given DAILY [facility] Benzonatate 100 mg 05/25/20 19:15 06/01/20 20:20 Benzonatate 100 Mg Cap PO 100 mg Q6H PRN Administration Cough Calcitriol 0.25 mcg 06/09/20 09:00 06/09/20 07:50 Calcitriol 0.25 Mcg Cap PO Not Given DAILY [facility] Carvedilol 3.125 mg 05/26/20 08:00 06/09/20 17:58 Carvedilol 6.25 Mg Tab PO Not Given BID-WM REJI Dexamethasone 6 mg 05/31/20 09:00 06/09/20 07:51 Dexamethasone 4 Mg Tab PO Not Given QAM REJI Dexamethasone 6 mg 06/09/20 09:00 06/09/20 09:56 Dexamethasone 4 Mg/Ml Vial SLOW IVP 6 mg DAILY REJI Administration Dextrose/Water 25 gm 05/25/20 19:15 06/07/20 16:46 Dextrose 50% Abboject 50 Ml Syringe SLOW IVP 25 gm PRN PRN Administration Hypoglycemia Famotidine 20 mg 05/26/20 21:00 06/08/20 20:45 Famotidine 20 Mg Tab PO Not Given HS REJI Guaifenesin 200 mg 05/25/20 19:15 06/01/20 00:52 Diabetic Tussin 200 Mg/10 Ml Udcup PO 200 mg Q4H PRN Administration Cough Heparin Sodium (Porcine) 5,000 units 06/08/20 15:00 06/09/20 16:35 Heparin 5,000 Units/Ml Vial SC 5,000 units TID REJI Administration Insulin Glargine 50 units/ 0.5 mls @ 0 mls/hr 05/30/20 21:00 06/08/20 20:47 Miscellaneous Medication SC Not Given HS REJI Insulin Glargine 30 units/ 0.3 mls @ 0 mls/hr 06/04/20 09:00 06/09/20 07:51 Miscellaneous Medication SC Not Given QAM REJI As Directed Cefepime HCl 0.5 gm/ 100 mls @ 200 mls/hr 06/05/20 09:00 06/09/20 10:40 Miscellaneous Medication 1 IVPB 06/12/20 09:01 100 mls each/ Sodium Chloride Q12HR REJI Administration Dextrose/Water 1,000 mls @ 75 mls/hr 06/08/20 14:45 06/09/20 17:58 D5w IV 1,000 mls .[id number] REJI Administration Ibuprofen 400 mg 05/25/20 19:15 05/28/20 14:48 Ibuprofen 200 Mg Tab PO 400 mg Q4H PRN Administration Fever > 101 Insulin Human Lispro 0 units 05/25/20 19:15 06/08/20 20:58 Humalog 300 Units/3 Ml Vial SC 2 unit .BEDTIME SLIDING SC PRN Administration Bedtime Correctional Scale Insulin Human Lispro 0 units 06/03/20 13:37 06/09/20 16:35 Humalog 300 Units/3 Ml Vial SC 9 unit .AGGRESSIVE SLIDING PRN Administration Aggressive Correctional Scale Lorazepam 1 mg 06/04/20 14:37 06/05/20 06:43 Lorazepam 2 Mg/Ml Vial SLOW IVP 1 mg Q4H PRN Administration Anxiety/Agitation Mometasone Furoate/Formoterol Fumar 2 puff 06/04/20 18:30 06/09/20 05:26 Mometasone 200 Mcg/Formoterol 5 Mcg 120 Puff Inhaler INH Not Given BID-RT REJI Nifedipine 30 mg 05/26/20 09:00 06/09/20 07:52 Nifedipine Xl 30 Mg Tab PO Not Given DAILY REJI Sodium Chloride 10 ml 06/01/20 09:00 06/09/20 09:56 Flush - Normal Saline 10 Ml Syringe IVF 10 ml Q12HR REJI Administration - Exam General Appearance: NAD, awake alert General - other findings: on high flow oxygen Eye: PERRL, anicteric sclera Neck: supple, symmetric, no JVD Heart: RRR, no murmur, no gallops Respiratory: CTAB, no wheezes, no rales Gastrointestinal: soft, non-tender, non-distended Extremities: no cyanosis, no clubbing, no edema Skin: normal turgor, no lesions, no rashes Hosp A/P - Plan Abdomen Xray: repositioning of NG tube Chest X ray 06/06: bilateral infiltrates This is a 75 year old female patient who presented with severe shaking. She also had bandemia. She was found to have COVID, currently in IMCU on high flow nasal cannula #Acute hypoxic respiratory failure secondary to COVID pneumonia vs COPD vs pulmonary edema - continue IV cefepime - continue dexamethasone . Continue inhaled steroids #Hyperkalemia #ESRD - potassium 6.5 today, creatinine 8.21. Pre nephrology plan to dialyze today. Will givfe insulin and dextrose Leukocytosis - WBC up to 17. Continue cefepime. Will repeat CBC tomorrow after dialysis. If febrile, may need to broaden antibiotic coverage Hypertension - continue nifedipine Type II diabetes - continue lantus 30 units qam and 50 units qhs CAD - continue aspirin, statin
[2020-06-10] MEDS: Cefepime 0.5 GM, Admixture Fee 1 EACH in Sodium Chloride 0.9% 100 ML IVPB SCH ×3 (00:59→22:48)
[2020-06-10] MEDS: Heparin 5,000 UNITS/ML VIAL SC SCH ×4 (01:01→22:26)
[2020-06-10] MEDS: Famotidine 20 MG TAB PO SCH ×2 (01:01→22:25)
[2020-06-10] MEDS: Insulin Glargine 50 UNITS in Pre-Filled Syringe 1 EACH SC SCH ×2 (01:18→22:26)
[2020-06-10] MEDS: Dextrose 5% in Water 1,000 ML IV SCH (05:33)
[2020-06-10] MEDS: Mometasone 200 MCG/Formoterol 5 MCG 120 PUFF INHALER INH SCH ×2 (05:34→20:01)
[2020-06-10 05:41] LABS: Anion Gap 18 mmol/L (10-20); BUN (Urea Nitrogen) 24 mg/dL (9.8-20.1); Calc. Creatinine Clearance 31 mL/min (70-130); Carbon Dioxide 26 mmol/L (23-31); Chloride 96 mmol/L (98-107); Potassium 3.2 mmol/L (3.5-5.1); Sodium 137 mmol/L (136-145)
[2020-06-10 05:42] LABS: Calcium 8.6 mg/dL (7.8-10.44); Glucose 152 mg/dL (83-110)
[2020-06-10] MEDS: HumaLOG 300 UNITS/3 ML VIAL SC PRN ×3 (05:56→22:27)
[2020-06-10 06:47] LABS: Hemoglobin 10.8 g/dL (12.0-16.0); Mean Corpuscular Hemoglobin 31.3 pg (27.0-31.0); Mean Corpuscular Volume 97.6 fL (78.0-98.0); Mean Platelet Volume 9.5 fL (7.4-10.4); Platelet Count 157 thou/uL (130-400); Red Blood Cell (RBC) Count 3.44 mill/uL (4.20-5.40)
[2020-06-10 07:05] LABS: Anion Gap 20 mmol/L (10-20); BUN (Urea Nitrogen) 46 mg/dL (9.8-20.1); Calc. Creatinine Clearance 15 mL/min (70-130); Calcium 7.8 mg/dL (7.8-10.44); Carbon Dioxide 22 mmol/L (23-31); Chloride 96 mmol/L (98-107); Glucose 268 mg/dL (83-110); Potassium 3.8 mmol/L (3.5-5.1); Sodium 134 mmol/L (136-145)
[2020-06-10 07:16] LABS: Band 7 % (5-11); Lymphocytes 5 % (21-51); MDiff Complete? YES; Monocytes 6 % (0-10); Neutrophil 82 % (42-75)
[2020-06-10] MEDS: Aspirin Chewable 81 MG TAB PO SCH (09:03)
[2020-06-10] MEDS: Atorvastatin Calcium 40 MG TAB PO SCH (09:03)
[2020-06-10] MEDS: Calcitriol 0.25 MCG CAP PO SCH (09:04)
[2020-06-10] MEDS: Carvedilol 6.25 MG TAB PO SCH ×2 (09:04→15:48)
[2020-06-10] MEDS: NIFEdipine XL 30 MG TAB PO SCH (09:04)
[2020-06-10] MEDS: Dexamethasone 4 MG TAB PO SCH (09:05)
[2020-06-10] MEDS: Dexamethasone 4 mg/ml Vial SLOW IVP SCH (09:06)
[2020-06-10] MEDS ORDERED: Vancomycin 1 GM in Premix Bag 1 BAG IVPB SCH ×2 (10:06→10:30)
--- NOTE | 2020-06-10 10:13 | PRG ---
DATE OF SERVICE: 06/10/2020 SUBJECTIVE: Ms. Lehman is a 75-year-old white female with ESRD, having maintenance hemodialysis, initially admitted for COVID-19 pneumonia. She has been requiring BiPAP for the last several days. However, yesterday, she was converted to high- flow nasal cannula. NG tube was also inserted. She did receive extra hemodialysis due to the potassium of 6.5. Potassium is much improved. No acute events noted last night. OBJECTIVE: VITAL SIGNS: Blood pressure is 124/42, heart rate 96, respiratory rate 15, O2 sat 99%. GENERAL: The patient is sleeping, comfortable, not in distress, but arousable. SKIN: Adequate turgor. HEENT: Pinkish conjunctivae. Anicteric sclerae. NECK: No neck mass. No carotid bruits. No JVD. CHEST: No deformities. LUNGS: Decreased breath sounds. HEART: Normal sinus rhythm. No murmur. No gallops. No rubs. ABDOMEN: Globular, soft, nontender. No masses. EXTREMITIES: No edema. No deformities. MEDICATIONS: June 10, 2020, were reviewed. LABORATORY DATA: June 10, 2020. White count 23, hemoglobin 10.8. Sodium 134, potassium 4.2, chloride 96, carbon dioxide 22, BUN 46, creatinine 5.08, glucose 268, calcium 7.8. ASSESSMENT AND PLAN: 1. End-stage renal disease, stable. Received extra hemodialysis due to the hyperkalemia yesterday. Potassium is much improved after dialysis. No indication for any emergent hemodialysis today. We will continue Thursday, Thursday, and Thursday hemodialysis regimen with this patient. 2. Hyperkalemia, resolved. 3. Hyperphosphatemia. Start Renvela 800 mg 1 tab t.i.d. The patient has been started on tube feedings. 4. Coronavirus disease 19 pneumonia. Continuing supportive care. Please note, white count elevated at 23,000. We will be checking repeat phosphorus, CBC, basic met in a.m. Overall, prognosis remains guarded. Job ID: [id number] [facility]
[2020-06-10] MEDS: Insulin Glargine 30 UNITS in Pre-Filled Syringe 1 EACH SC SCH (10:28)
[2020-06-10] MEDS ORDERED: Vancomycin HCl 750 MG in Sodium Chloride 0.9% 250 ML 250 ML IVPB SCH (10:30)
[2020-06-10] MEDS ORDERED: Vancomycin HCl 1.25 GM in Sodium Chloride 0.9% 250 ML 250 ML IVPB SCH (10:30)
[2020-06-10] MEDS ORDERED: HOLD VANCOMYCIN FOR LEVEL >20 FS SCH (10:30)
[2020-06-10] MEDS ORDERED: Vancomycin HCl 1.5 GM in Sodium Chloride 0.9% 250 ML 300 ML IVPB SCH (10:30)
--- NOTE | 2020-06-10 11:36 | RAD ---
EXAM: Chest one view: HISTORY: Worsening leukocytosis, Covid pneumonia COMPARISON: 06/06/2020 FINDINGS: NG tube in place. Heart size: Minimal cardiomegaly. Lungs: Some improvement in the previously noted interstitial, alveolar, and groundglass opacity mendoza es. No evidence for confluent lobar pneumonia, significant pleural effusion, acute edema, or pneumothorax , or other significant acute process. IMPRESSION: Evidence for improving bilateral Covid pneumonia.
--- NOTE | 2020-06-10 11:48 | PRG ---
DATE OF SERVICE: 06/10/2020 SUBJECTIVE: Marielle Lehman remains on high-flow. OBJECTIVE: VITAL SIGNS: Temperature 97, saturations are 98%, blood pressure 106/48, and respiratory rate 18. She is on 40 L, 60%. CHEST: Rhonchi, crackles. CARDIAC: Normal S1, S2. ABDOMEN: No masses. LABORATORY DATA: Creatinine 5, BUN 46. ASSESSMENT: chronic renal failure, on dialysis; leukocytosis. PLAN: Baptiste positive status. She is slowly improving. Going to try and decrease the FiO2 down to 40%. Otherwise, supportive care, remains stable. She can be transferred out of the MICU to an unmonitored bed. Prognosis remains guarded. She is a full code. Job ID: [id number]
--- NOTE | 2020-06-10 17:27 | PDOC.HOSPP ---
- Subjective Encounter Date: 06/10/20 Encounter Time: 12:00 Subjective: F/u: COVID pneumonia The patient is on day 5 of cefepime. WBC continues to increase to 23. She is on high flow nasal cannula saturating 93%. She is still non-verbal but per nurse occasionally communicates with the nurse. She has not really been ambulatory since she has been here. - Objective Vital Signs & Weight: Vital Signs (12 hours) Pulse Ox 06/10/20 12:32 93 L Weight Admit Weight 233 lb 3.984 oz Weight 221 lb 9.033 oz Most Recent Monitor Data Heart Rate from ECG 88 NIBP 126/42 NIBP BP-Mean 70 Respiration from ECG 19 SpO2 89 I&O: 06/09/20 06/10/20 06/11/20 06:59 06:59 06:59 Intake Total 1159 1282 60 Output Total 0 2000 Balance 1159 -718 60 Result Diagrams: 06/10/20 06:12 06/10/20 06:12 Additional Labs: Accuchecks 06/10/20 06/10/20 06/10/20 16:05 12:01 05:52 POC Glucose 474 H 319 H 285 H 06/10/20 01:12 POC Glucose 163 H Hospitalist ROS - Review of Systems Constitutional: denies: fever, chills - Medication Medications: Active Medications Generic Name Dose Route Start Last Admin Trade Name Freq PRN Reason Stop Dose Admin Acetaminophen 1,000 mg 05/25/20 19:15 05/29/20 08:48 Acetaminophen 500 Mg Tab PO 1,000 mg Q6H PRN Administration Mild Pain (1-3) Aspirin 81 mg 05/26/20 09:00 06/10/20 09:03 Aspirin Chewable 81 Mg Tab PO 81 mg DAILY REJI Administration Atorvastatin Calcium 80 mg 05/26/20 09:00 06/10/20 09:03 Atorvastatin Calcium 40 Mg Tab PO 80 mg DAILY REJI Administration Benzonatate 100 mg 05/25/20 19:15 06/01/20 20:20 Benzonatate 100 Mg Cap PO 100 mg Q6H PRN Administration Cough Calcitriol 0.25 mcg 06/09/20 09:00 06/10/20 09:04 Calcitriol 0.25 Mcg Cap PO 0.25 mcg DAILY REJI Administration Carvedilol 3.125 mg 05/26/20 08:00 06/10/20 15:48 Carvedilol 6.25 Mg Tab PO 3.125 mg BID-WM REJI Administration Dexamethasone 6 mg 05/31/20 09:00 06/10/20 09:05 Dexamethasone 4 Mg Tab PO Not Given QAM REJI Dexamethasone 6 mg 06/09/20 09:00 06/10/20 09:06 Dexamethasone 4 Mg/Ml Vial SLOW IVP 6 mg DAILY REJI Administration Dextrose/Water 25 gm 05/25/20 19:15 06/07/20 16:46 Dextrose 50% Abboject 50 Ml Syringe SLOW IVP 25 gm PRN PRN Administration Hypoglycemia Famotidine 20 mg 05/26/20 21:00 06/10/20 01:01 Famotidine 20 Mg Tab PO 20 mg HS REJI Administration Guaifenesin 200 mg 05/25/20 19:15 06/01/20 00:52 Diabetic Tussin 200 Mg/10 Ml Udcup PO 200 mg Q4H PRN Administration Cough Heparin Sodium (Porcine) 5,000 units 06/08/20 15:00 06/10/20 15:49 Heparin 5,000 Units/Ml Vial SC 5,000 units TID REJI Administration Insulin Glargine 50 units/ 0.5 mls @ 0 mls/hr 05/30/20 21:00 06/10/20 01:18 Miscellaneous Medication SC Not Given HS REJI Insulin Glargine 30 units/ 0.3 mls @ 0 mls/hr 06/04/20 09:00 06/10/20 10:28 Miscellaneous Medication SC 0.3 mls QAM REJI Administration As Directed Cefepime HCl 0.5 gm/ 100 mls @ 200 mls/hr 06/05/20 09:00 06/10/20 10:27 Miscellaneous Medication 1 IVPB 06/12/20 09:01 100 mls each/ Sodium Chloride Q12HR REJI Administration Dextrose/Water 1,000 mls @ 75 mls/hr 06/08/20 14:45 06/10/20 05:33 D5w IV 1,000 mls .[id number] REJI Administration Ibuprofen 400 mg 05/25/20 19:15 05/28/20 14:48 Ibuprofen 200 Mg Tab PO 400 mg Q4H PRN Administration Fever > 101 Insulin Human Lispro 0 units 05/25/20 19:15 06/08/20 20:58 Humalog 300 Units/3 Ml Vial SC 2 unit .BEDTIME SLIDING SC PRN Administration Bedtime Correctional Scale Insulin Human Lispro 0 units 06/03/20 13:37 06/10/20 16:12 Humalog 300 Units/3 Ml Vial SC 13 unit .AGGRESSIVE SLIDING PRN Administration Aggressive Correctional Scale Lorazepam 1 mg 06/04/20 14:37 06/05/20 06:43 Lorazepam 2 Mg/Ml Vial SLOW IVP 1 mg Q4H PRN Administration Anxiety/Agitation Mometasone Furoate/Formoterol Fumar 2 puff 06/04/20 18:30 06/10/20 05:34 Mometasone 200 Mcg/Formoterol 5 Mcg 120 Puff Inhaler INH Not Given BID-RT REJI Nifedipine 30 mg 05/26/20 09:00 06/10/20 09:04 Nifedipine Xl 30 Mg Tab PO 30 mg DAILY REJI Administration Sodium Chloride 10 ml 06/01/20 09:00 06/10/20 10:28 Flush - Normal Saline 10 Ml Syringe IVF 10 ml Q12HR REJI Administration - Exam General Appearance: NAD, awake alert General - other findings: non-verbal. On high flow nasal cannula Eye: PERRL, anicteric sclera ENT: normocephalic atraumatic, no oropharyngeal lesions Neck: no JVD Heart: RRR, no murmur, no gallops, no rubs Respiratory - other findings: diminished breath sounds diffusely Gastrointestinal: soft, non-tender, non-distended, normal bowel sounds Extremities: no cyanosis, no clubbing, no edema Skin: normal turgor, no lesions, no rashes Neurological: cranial nerve grossly intact, normal sensation to touch, no weakness Hosp A/P - Plan Abdomen Xray: repositioning of NG tube Chest X ray 06/06: bilateral infiltrates Chest Xray 06/10 : improving bilateral COVID pneumonia This is a 75 year old female patient who presented with severe shaking. She also had bandemia. She was found to have COVID, currently in IMCU on high flow nasal cannula #Acute hypoxic respiratory failure secondary to COVID pneumonia vs COPD vs pulmonary edema - continue IV cefepime. WBC is increasing to 23. Will add IV vancomycin - continue dexamethasone IV. Continue inhaled steroids. Attempt to wean FiO2 on high flow nasal cannula today Leukocytosis - WBC up to 23. Starting IV vancomycin in additional to cefepime. Unable to get UA since anuric #ESRD -continue scheduled dialysis #Hyperkalemia - resolved Hypertension - continue nifedipine Type II diabetes - blood sugars 300-400. Will increase lantus to 34 units and continue lantus 50 units qhs qhs CAD - continue aspirin, statin
[2020-06-11] MEDS: Mometasone 200 MCG/Formoterol 5 MCG 120 PUFF INHALER INH SCH ×2 (03:12→19:30)
[2020-06-11 04:04] LABS: Anion Gap 23 mmol/L (10-20); BUN (Urea Nitrogen) 77 mg/dL (9.8-20.1); Calc. Creatinine Clearance 11 mL/min (70-130); Calcium 7.5 mg/dL (7.8-10.44); Carbon Dioxide 21 mmol/L (23-31); Chloride 92 mmol/L (98-107); Glucose 360 mg/dL (83-110); Potassium 4.6 mmol/L (3.5-5.1); Sodium 131 mmol/L (136-145)
[2020-06-11 04:29] LABS: Hemoglobin 10.5 g/dL (12.0-16.0); Mean Corpuscular HGB CONC 32.8 g/dL (32.0-36.0); Mean Corpuscular Hemoglobin 32.1 pg (27.0-31.0); Mean Corpuscular Volume 98.1 fL (78.0-98.0); Mean Platelet Volume 10.7 fL (7.4-10.4); Platelet Count 163 thou/uL (130-400); RBC Distribution Width 14.2 % (11.5-14.5); Red Blood Cell (RBC) Count 3.26 mill/uL (4.20-5.40); White Blood Cell (WBC) Count 24.1 thou/uL (4.8-10.8)
[2020-06-11 04:30] LABS: Band 8 % (5-11); Lymphocytes 5 % (21-51); MDiff Complete? YES; Monocytes 4 % (0-10); Neutrophil 83 % (42-75)
[2020-06-11 04:31] LABS: Phosphorus 5.6 mg/dL (2.3-4.7)
[2020-06-11] MEDS: HumaLOG 300 UNITS/3 ML VIAL SC PRN ×2 (05:12→11:05)
[2020-06-11] MEDS: Calcitriol 0.25 MCG CAP PO SCH (08:31)
[2020-06-11] MEDS: Atorvastatin Calcium 40 MG TAB PO SCH (08:31)
[2020-06-11] MEDS: Carvedilol 6.25 MG TAB PO SCH ×2 (08:31→18:09)
[2020-06-11] MEDS: Aspirin Chewable 81 MG TAB PO SCH (08:31)
[2020-06-11] MEDS: Dexamethasone 4 mg/ml Vial SLOW IVP SCH (08:32)
[2020-06-11] MEDS: INSULIN GLARGINE SC SCH (08:32)
[2020-06-11] MEDS: NIFEdipine XL 30 MG TAB PO SCH (08:32)
[2020-06-11] MEDS: Heparin 5,000 UNITS/ML VIAL SC SCH ×3 (08:32→21:25)
[2020-06-11] MEDS: PRE FILLED SC SCH (08:32)
[2020-06-11] MEDS ORDERED: Meropenem 2 GM in Admixture Fee 1 EACH IVPB SCH (08:55)
--- NOTE | 2020-06-11 09:48 | PRG ---
DATE OF SERVICE: 06/11/2020 SUBJECTIVE: Ms. Lehman is a 75-year-old white female with ESRD and was initially admitted for COVID-19 pneumonia. She has worsening respiratory status. She was on BiPAP initially, but now is currently on high-flow O2. No acute events noted last night. The patient will be undergoing hemodialysis this afternoon. OBJECTIVE: VITAL SIGNS: Blood pressure 117/50, heart rate 82, respiratory rate 20, O2 saturation 92%. GENERAL: The patient is awake and follows simple commands, not in distress. SKIN: Adequate turgor. HEENT: She has slightly pale conjunctivae. Anicteric sclerae. NECK: No neck mass. No carotid bruits. No JVD. CHEST: No deformities. LUNGS: Harsh breath sounds. HEART: Normal sinus rhythm. No murmurs. No gallops. No rubs. ABDOMEN: Globular, soft, nontender. No masses. EXTREMITIES: No edema. No deformities. MEDICATIONS: On June 11, 2020, were reviewed. LABORATORY DATA: On June 11, 2020; sodium 131, potassium 4.6, chloride 92, carbon dioxide 21, BUN 77, creatinine 6.86, glucose 360, calcium 7.5, phosphorus 5.6. White count 24.1, hemoglobin 10.5. ASSESSMENT AND PLAN: 1. End-stage renal disease, stable. We will continue current hemodialysis regimen. Fluid removal as tolerated by the patient. 2. Hyperphosphatemia/hyperkalemia, much improved with dialysis. Continuing supportive care with this patient. 3. COVID-19 pneumonia. Continue current supportive care. The patient is relatively stable from a pulmonary status. No indication for any intubation with this patient. 4. Overall, prognosis remains guarded. Job ID: [id number]
[2020-06-11] MEDS: Meropenem 500 MG in Sodium Chloride 0.9% 100 ML IVPB SCH ×2 (11:05→21:26)
--- NOTE | 2020-06-11 11:15 | PRG ---
DATE OF SERVICE: 06/11/2020 SUBJECTIVE: This morning, the patient is awake, alert, and responsive, though still somewhat confused. OBJECTIVE: VITAL SIGNS: Saturations are 95% on high-flow, temperature 97, blood pressure being dialyzed. CHEST: No wheezing, no crackles. CARDIAC: Normal S1 and S2. No gallops. ABDOMEN: No masses. LABORATORY DATA: White count 24,000. IMPRESSION: Baptiste positive pneumonia, respiratory failure, congestive heart failure, chronic renal failure. Antibiotics are prescribed yesterday, still has leukocytosis. She was started on meropenem yesterday with all cultures being negative. Continue steroids as tolerated. Prognosis is poor. Job ID: [id number]
[2020-06-11 13:01] LABS: Vancomycin, Random 23.6 ug/mL (See Comment)
--- NOTE | 2020-06-11 17:00 | PDOC.PALFU ---
Palliative Care Follow-up Note Palliative care following, has communicated with son. Please refer to PC notes in note section. Will attempt to establish family meeting with son to further discuss goal of care in relation to prognosis. Son is recovering from Covid. Will attempt to discuss 06/12/2020
--- NOTE | 2020-06-11 17:29 | PDOC.HOSPP ---
- Subjective Encounter Date: 06/11/20 Encounter Time: 15:00 Subjective: F/u: COVID SHe is still on high flow nasal cannula The patient is more verbal today and nods yes/no to questions. She was getting dialysis when I saw her. They planned to remove 2l of fluid She denies chest pain. She is coughing some - Objective Vital Signs & Weight: Vital Signs (12 hours) Pulse BP Pulse Ox Pulse Ox 06/11/20 15:05 82 97/65 88 L 06/11/20 08:00 96 Weight Admit Weight 233 lb 3.984 oz Weight 221 lb 9.033 oz Most Recent Monitor Data Heart Rate from ECG 89 NIBP 97/65 NIBP BP-Mean 75 Respiration from ECG 19 SpO2 93 I&O: 06/10/20 06/11/20 06/12/20 06:59 06:59 06:59 Intake Total 1282 915 60 Output Total 2000 0 Balance -718 915 60 Result Diagrams: 06/11/20 03:11 06/11/20 03:11 Additional Labs: Accuchecks 06/11/20 06/11/20 06/10/20 10:48 05:09 19:54 POC Glucose 262 H 314 H 512 H 06/07/20 09:50 POC Glucose 94 Hospitalist ROS - Review of Systems Constitutional: denies: fever, chills - Medication Medications: Active Medications Generic Name Dose Route Start Last Admin Trade Name Freq PRN Reason Stop Dose Admin Acetaminophen 1,000 mg 05/25/20 19:15 05/29/20 08:48 Acetaminophen 500 Mg Tab PO 1,000 mg Q6H PRN Administration Mild Pain (1-3) Aspirin 81 mg 05/26/20 09:00 06/11/20 08:31 Aspirin Chewable 81 Mg Tab PO 81 mg DAILY REJI Administration Atorvastatin Calcium 80 mg 05/26/20 09:00 06/11/20 08:31 Atorvastatin Calcium 40 Mg Tab PO 80 mg DAILY REJI Administration Benzonatate 100 mg 05/25/20 19:15 06/01/20 20:20 Benzonatate 100 Mg Cap PO 100 mg Q6H PRN Administration Cough Calcitriol 0.25 mcg 06/09/20 09:00 06/11/20 08:31 Calcitriol 0.25 Mcg Cap PO 0.25 mcg DAILY REJI Administration Carvedilol 3.125 mg 05/26/20 08:00 06/11/20 08:31 Carvedilol 6.25 Mg Tab PO 3.125 mg BID-WM REJI Administration Dexamethasone 6 mg 06/09/20 09:00 06/11/20 08:32 Dexamethasone 4 Mg/Ml Vial SLOW IVP 6 mg DAILY REJI Administration Dextrose/Water 25 gm 05/25/20 19:15 06/07/20 16:46 Dextrose 50% Abboject 50 Ml Syringe SLOW IVP 25 gm PRN PRN Administration Hypoglycemia Famotidine 20 mg 05/26/20 21:00 06/10/20 22:25 Famotidine 20 Mg Tab PO 20 mg HS REJI Administration Guaifenesin 200 mg 05/25/20 19:15 06/01/20 00:52 Diabetic Tussin 200 Mg/10 Ml Udcup PO 200 mg Q4H PRN Administration Cough Heparin Sodium (Porcine) 5,000 units 06/08/20 15:00 06/11/20 13:38 Heparin 5,000 Units/Ml Vial SC 5,000 units TID REJI Administration Insulin Glargine 50 units/ 0.5 mls @ 0 mls/hr 05/30/20 21:00 06/10/20 22:26 Miscellaneous Medication SC 0.5 mls HS REJI Administration Insulin Glargine 34 units/ 0.34 mls @ 0 mls/hr 06/11/20 09:00 06/11/20 08:32 Miscellaneous Medication SC 0.34 mls QAM REJI Administration Meropenem 500 mg/ Sodium 100 mls @ 200 mls/hr 06/11/20 10:00 06/11/20 11:05 Chloride IVPB 100 mls 1000,2200 REJI Administration Ibuprofen 400 mg 05/25/20 19:15 05/28/20 14:48 Ibuprofen 200 Mg Tab PO 400 mg Q4H PRN Administration Fever > 101 Insulin Human Lispro 0 units 05/25/20 19:15 06/08/20 20:58 Humalog 300 Units/3 Ml Vial SC 2 unit .BEDTIME SLIDING SC PRN Administration Bedtime Correctional Scale Insulin Human Lispro 0 units 06/03/20 13:37 06/11/20 11:05 Humalog 300 Units/3 Ml Vial SC 9 unit .AGGRESSIVE SLIDING PRN Administration Aggressive Correctional Scale Lorazepam 1 mg 06/04/20 14:37 06/05/20 06:43 Lorazepam 2 Mg/Ml Vial SLOW IVP 1 mg Q4H PRN Administration Anxiety/Agitation Mometasone Furoate/Formoterol Fumar 2 puff 06/04/20 18:30 06/11/20 03:12 Mometasone 200 Mcg/Formoterol 5 Mcg 120 Puff Inhaler INH Not Given BID-RT REJI Nifedipine 30 mg 05/26/20 09:00 06/11/20 08:32 Nifedipine Xl 30 Mg Tab PO 30 mg DAILY REJI Administration Sodium Chloride 10 ml 06/01/20 09:00 06/11/20 08:32 Flush - Normal Saline 10 Ml Syringe IVF 10 ml Q12HR REJI Administration - Exam General Appearance: NAD, awake alert Eye: PERRL, anicteric sclera ENT: normocephalic atraumatic, no oropharyngeal lesions Neck: no JVD Heart: RRR, no murmur, no gallops, no rubs Respiratory: rales Gastrointestinal: soft, non-tender, non-distended, normal bowel sounds Extremities: no cyanosis, no clubbing, no edema Skin: normal turgor, no lesions, no rashes Hosp A/P - Plan Abdomen Xray: repositioning of NG tube Chest X ray 06/06: bilateral infiltrates Chest Xray 06/10 : improving bilateral COVID pneumonia This is a 75 year old female patient who presented with severe shaking. She also had bandemia. She was found to have COVID, currently in IMCU on high flow nasal cannula #Acute hypoxic respiratory failure secondary to COVID pneumonia vs COPD vs pulmonary edema - WBC is increasing to 24. Chest Xray 06/10 showed improving bilateral pneumonia. Vancomycin added 06/10, cefepime discontinued and switched to meropenem 06/11. Will repeat CBC tomorrow and evaluate for improvement - continue dexamethasone and inhaled steroids Leukocytosis - WBC up to 24. Started IV vanc and switched cefepime to meropenem. Continue to monitor #ESRD -continue scheduled dialysis #Hyperkalemia - resolved Hypertension - continue nifedipine Type II diabetes - blood sugars 300-400. Will increase lantus to 34 units and continue lantus 50 units qhs qhs CAD - continue aspirin, statin
[2020-06-11] MEDS: Famotidine 20 MG TAB PO SCH (21:25)
[2020-06-11] MEDS: Insulin Glargine 50 UNITS in Pre-Filled Syringe 1 EACH SC SCH (21:26)
[2020-06-12] MEDS: Mometasone 200 MCG/Formoterol 5 MCG 120 PUFF INHALER INH SCH ×2 (04:51→20:43)
[2020-06-12] MEDS: HumaLOG 300 UNITS/3 ML VIAL SC PRN ×4 (06:31→21:30)
[2020-06-12] MEDS: Atorvastatin Calcium 40 MG TAB PO SCH (07:32)
[2020-06-12] MEDS: NIFEdipine XL 30 MG TAB PO SCH (07:32)
[2020-06-12] MEDS: Dexamethasone 4 mg/ml Vial SLOW IVP SCH (07:33)
[2020-06-12] MEDS: Carvedilol 6.25 MG TAB PO SCH ×2 (07:33→15:46)
[2020-06-12] MEDS: Calcitriol 0.25 MCG CAP PO SCH (07:33)
[2020-06-12] MEDS: Aspirin Chewable 81 MG TAB PO SCH (07:33)
[2020-06-12] MEDS: Heparin 5,000 UNITS/ML VIAL SC SCH ×3 (07:33→21:27)
[2020-06-12 08:15] LABS: Chloride 96 mmol/L (98-107); Potassium 4.3 mmol/L (3.5-5.1); Sodium 135 mmol/L (136-145)
[2020-06-12 08:23] LABS: Calcium 7.8 mg/dL (7.8-10.44); Glucose 307 mg/dL (83-110)
[2020-06-12 08:25] LABS: Anion Gap 26 mmol/L (10-20); Carbon Dioxide 18 mmol/L (23-31)
[2020-06-12 08:27] LABS: Calc. Creatinine Clearance 13 mL/min (70-130)
[2020-06-12 08:28] LABS: BUN (Urea Nitrogen) 69 mg/dL (9.8-20.1)
[2020-06-12 08:42] LABS: Band 6 % (5-11); Hemoglobin 10.9 g/dL (12.0-16.0); Lymphocytes 5 % (21-51); MDiff Complete? YES; Mean Corpuscular HGB CONC 32.4 g/dL (32.0-36.0); Mean Corpuscular Hemoglobin 31.8 pg (27.0-31.0); Mean Corpuscular Volume 98.1 fL (78.0-98.0); Mean Platelet Volume 10.9 fL (7.4-10.4); Monocytes 2 % (0-10); Neutrophil 87 % (42-75); Platelet Count 116 thou/uL (130-400); Platelet Morphology Comment Appears Decreased; Polychromasia SLIGHT = 2-3 cells (100X) (0-2/hpf); RBC Distribution Width 14.8 % (11.5-14.5); Red Blood Cell (RBC) Count 3.43 mill/uL (4.20-5.40); Vacuoles SLIGHT; White Blood Cell (WBC) Count 32.9 thou/uL (4.8-10.8)
[2020-06-12] MEDS: INSULIN GLARGINE SC SCH (09:58)
[2020-06-12] MEDS: PRE FILLED SC SCH (09:58)
[2020-06-12 10:53] LABS: Bacteria/HPF 4+ HPF (None Seen); Bilirubin Negative (Negative); Blood, Urine Trace (Negative); Clarity Turbid (Clear); Glucose, Urine (Dipstick) 500 mg/dL (Negative); Ketone, Urine Negative (Negative); Leukocyte Negative Leu/uL (Negative); Nitrite Negative (Negative); Protein, Urine (Dipstick) 300 mg/dL (Neg-Trace); RBC/HPF 0-3 HPF (0-3); Specific Gravity, Urine 1.017 (1.002-1.036); Squamous Epithelial 21-50 HPF (0-3); Urobilinogen Normal mg/dL (Less than 2)
[2020-06-12 10:57] LABS: Urine Culture Reflex No No
--- NOTE | 2020-06-12 11:55 | PRG ---
DATE OF SERVICE: 06/12/2020 SUBJECTIVE: Marielle Lehman is a 75-year-old patient, remains in the MICU. OBJECTIVE: VITAL SIGNS: Temperature 96, blood pressure 130/56, sats 98%, respiratory rate 18. CHEST: No wheezing, no crackles. CARDIAC: Normal S1, S2. No gallops. ASSESSMENT: 1. Chronic renal failure. 2. Baptiste positive pneumonia. 3. Severe deconditioning. RECOMMENDATIONS: I have to restart BiPAP on her again. She was on high-flow earlier with severe leukocytosis. Her cultures are negative. She was started on broad-spectrum antibiotics, which I would empirically continue. Prognosis is grave. Family considers a full code. Job ID: [id number]
[2020-06-12] MEDS: Meropenem 500 MG in Sodium Chloride 0.9% 100 ML IVPB SCH ×2 (11:59→21:53)
--- NOTE | 2020-06-12 18:36 | PDOC.HOSPP ---
- Subjective Encounter Date: 06/12/20 Encounter Time: 13:00 Subjective: F/u: COVID Patient is sitting up in bed. She still on high flow nasal cannula. She denies any shortness of breath or chest pain. She reports some abdominal discomfort. She does not recall when the last time she had a bowel movement was. - Objective Vital Signs & Weight: Vital Signs (12 hours) Temp Pulse Pulse BP BP Pulse Ox Pulse Ox 06/12/20 15:40 96.7 F L 06/12/20 12:58 91 L 06/12/20 11:51 96.2 F L 06/12/20 10:53 88 83 107/61 117/58 L 95 06/12/20 07:40 96 06/12/20 07:17 96.0 F L Pulse Ox 06/12/20 15:40 06/12/20 12:58 06/12/20 11:51 06/12/20 10:53 95 06/12/20 07:40 06/12/20 07:17 Weight Admit Weight 233 lb 3.984 oz Weight 221 lb 9.033 oz Most Recent Monitor Data Heart Rate from ECG 94 NIBP 126/68 NIBP BP-Mean 87 Respiration from ECG 25 SpO2 91 I&O: 06/11/20 06/12/20 06/13/20 06:59 06:59 06:59 Intake Total 915 920 60 Output Total 0 0 Balance 915 920 60 Result Diagrams: 06/12/20 08:11 06/12/20 07:49 Additional Labs: Accuchecks 06/12/20 06/12/20 06/12/20 16:45 12:06 05:49 POC Glucose 343 H 306 H 283 H 06/11/20 20:21 POC Glucose 236 H Hospitalist ROS - Review of Systems Constitutional: denies: fever, chills - Medication Medications: Active Medications Generic Name Dose Route Start Last Admin Trade Name Freq PRN Reason Stop Dose Admin Acetaminophen 1,000 mg 05/25/20 19:15 05/29/20 08:48 Acetaminophen 500 Mg Tab PO 1,000 mg Q6H PRN Administration Mild Pain (1-3) Aspirin 81 mg 05/26/20 09:00 06/12/20 07:33 Aspirin Chewable 81 Mg Tab PO 81 mg DAILY REJI Administration Atorvastatin Calcium 80 mg 05/26/20 09:00 06/12/20 07:32 Atorvastatin Calcium 40 Mg Tab PO 80 mg DAILY REJI Administration Benzonatate 100 mg 05/25/20 19:15 06/01/20 20:20 Benzonatate 100 Mg Cap PO 100 mg Q6H PRN Administration Cough Calcitriol 0.25 mcg 06/09/20 09:00 06/12/20 07:33 Calcitriol 0.25 Mcg Cap PO 0.25 mcg DAILY REJI Administration Carvedilol 3.125 mg 05/26/20 08:00 06/12/20 15:46 Carvedilol 6.25 Mg Tab PO 3.125 mg BID-WM REJI Administration Dexamethasone 6 mg 06/09/20 09:00 06/12/20 07:33 Dexamethasone 4 Mg/Ml Vial SLOW IVP 6 mg DAILY REJI Administration Dextrose/Water 25 gm 05/25/20 19:15 06/07/20 16:46 Dextrose 50% Abboject 50 Ml Syringe SLOW IVP 25 gm PRN PRN Administration Hypoglycemia Famotidine 20 mg 05/26/20 21:00 06/11/20 21:25 Famotidine 20 Mg Tab PO 20 mg HS REJI Administration Guaifenesin 200 mg 05/25/20 19:15 06/01/20 00:52 Diabetic Tussin 200 Mg/10 Ml Udcup PO 200 mg Q4H PRN Administration Cough Heparin Sodium (Porcine) 5,000 units 06/08/20 15:00 06/12/20 15:46 Heparin 5,000 Units/Ml Vial SC 5,000 units TID REJI Administration Insulin Glargine 50 units/ 0.5 mls @ 0 mls/hr 05/30/20 21:00 06/11/20 21:26 Miscellaneous Medication SC 0.5 mls HS REJI Administration Insulin Glargine 34 units/ 0.34 mls @ 0 mls/hr 06/11/20 09:00 06/12/20 09:58 Miscellaneous Medication SC 0.34 mls QAM REJI Administration Meropenem 500 mg/ Sodium 100 mls @ 200 mls/hr 06/11/20 10:00 06/12/20 11:59 Chloride IVPB 100 mls 1000,2200 REJI Administration Ibuprofen 400 mg 05/25/20 19:15 05/28/20 14:48 Ibuprofen 200 Mg Tab PO 400 mg Q4H PRN Administration Fever > 101 Insulin Human Lispro 0 units 05/25/20 19:15 06/08/20 20:58 Humalog 300 Units/3 Ml Vial SC 2 unit .BEDTIME SLIDING SC PRN Administration Bedtime Correctional Scale Insulin Human Lispro 0 units 06/03/20 13:37 06/12/20 17:06 Humalog 300 Units/3 Ml Vial SC 11 unit .AGGRESSIVE SLIDING PRN Administration Aggressive Correctional Scale Lorazepam 1 mg 06/04/20 14:37 06/05/20 06:43 Lorazepam 2 Mg/Ml Vial SLOW IVP 1 mg Q4H PRN Administration Anxiety/Agitation Mometasone Furoate/Formoterol Fumar 2 puff 06/04/20 18:30 06/12/20 04:51 Mometasone 200 Mcg/Formoterol 5 Mcg 120 Puff Inhaler INH Not Given BID-RT REJI Nifedipine 30 mg 05/26/20 09:00 06/12/20 07:32 Nifedipine Xl 30 Mg Tab PO 30 mg DAILY REJI Administration Sodium Chloride 10 ml 06/01/20 09:00 06/12/20 07:33 Flush - Normal Saline 10 Ml Syringe IVF 10 ml Q12HR REJI Administration - Exam General Appearance: NAD, awake alert Eye: PERRL, anicteric sclera ENT: normocephalic atraumatic, no oropharyngeal lesions Neck: no JVD Heart: RRR, no murmur, no gallops, no rubs Respiratory - other findings: diminished breath sounds Gastrointestinal: soft, non-tender, non-distended, normal bowel sounds Extremities: no cyanosis, no clubbing, no edema Skin: normal turgor, no lesions, no rashes Hosp A/P - Plan Abdomen Xray: repositioning of NG tube Chest X ray 06/06: bilateral infiltrates Chest Xray 06/10 : improving bilateral COVID pneumonia This is a 75 year old female patient who presented with severe shaking. She also had bandemia. She was found to have COVID, currently in IMCU on high flow nasal cannula #Acute hypoxic respiratory failure secondary to COVID pneumonia vs COPD vs pulmonary edema - WBC is increasing to 32. Chest Xray 06/10 showed improving bilateral pneumonia. Vancomycin added 06/10, cefepime discontinued and switched to meropenem 06/11. -We will repeat chest x-ray today Leukocytosis - WBC up to 32. Continue vancomycin and meropenem. UA was repeated, urine culture was sent #ESRD -continue scheduled dialysis #Hyperkalemia - resolved Hypertension - continue nifedipine Type II diabetes - blood sugars 300-400. Will increase lantus to 38 units and increase lantus to 55 units qhs CAD - continue aspirin, statin
--- NOTE | 2020-06-12 19:32 | RAD ---
Exam: Chest one view HISTORY:Increasing leukocytosis Comparison: 06/10/2020 FINDINGS: Lines and tubes: Stable nasogastric tube extending beyond the diaphragm. Cardiac silhouette:Cardiomegaly and sternotomy wires, unchanged. Aorta: Stable atherosclerosis Pulmonary vessels: Normal Costophrenic angles: Clear LUNGS: Persistent multi focal interstitial and to lesser extent alveolar opacities. Degree of opacifi cation has slightly progressed. Pneumothorax: None Osseous abnormalities: None IMPRESSION: Worsening interstitial and alveolar opacities. Worsening multi lobar pneumonia.
[2020-06-12] MEDS: Famotidine 20 MG TAB PO SCH (21:27)
[2020-06-12] MEDS: Insulin Glargine 55 UNITS in Pre-Filled Syringe 1 EACH SC SCH (21:28)
[2020-06-13 08:09] LABS: Hemoglobin 10.8 g/dL (12.0-16.0); Mean Corpuscular HGB CONC 32.3 g/dL (32.0-36.0); Mean Corpuscular Hemoglobin 32.1 pg (27.0-31.0); Mean Corpuscular Volume 99.3 fL (78.0-98.0); Mean Platelet Volume 10.4 fL (7.4-10.4); Platelet Count 193 thou/uL (130-400); RBC Distribution Width 15.2 % (11.5-14.5); Red Blood Cell (RBC) Count 3.37 mill/uL (4.20-5.40); White Blood Cell (WBC) Count 32.8 thou/uL (4.8-10.8)
[2020-06-13 08:21] LABS: Anion Gap 26 mmol/L (10-20); BUN (Urea Nitrogen) 105 mg/dL (9.8-20.1); Calc. Creatinine Clearance 9 mL/min (70-130); Calcium 8.5 mg/dL (7.8-10.44); Carbon Dioxide 21 mmol/L (23-31); Chloride 97 mmol/L (98-107); Glucose 128 mg/dL (83-110); Potassium 4.3 mmol/L (3.5-5.1); Sodium 140 mmol/L (136-145)
[2020-06-13] MEDS ORDERED: Albumin 25% 25 GM/100 ML BOT IVPB SCH (09:48)
--- NOTE | 2020-06-13 09:56 | PRG ---
DATE OF SERVICE: 06/13/2020 SUBJECTIVE: Ms. Lehman is a 75-year-old white female with ESRD, on maintenance hemodialysis, and admitted for COVID-19 pneumonia. The patient respiratory status is slightly improved. Currently, the patient is off BiPAP. She is currently on high-flow nasal O2. She is more responsive today. She is currently undergoing hemodialysis. OBJECTIVE: VITAL SIGNS: Blood pressure 102/61, heart rate 91, respiratory rate 22, O2 saturation 98%. GENERAL: The patient is awake, comfortable, not in overt distress. SKIN: Adequate turgor. HEENT: Slightly pale conjunctivae. Anicteric sclerae. No neck mass. No carotid bruits. No JVD. LUNGS: Decreased breath sounds. HEART: Normal sinus rhythm. No murmurs, gallops, or rubs. ABDOMEN: Globular, soft, nontender. EXTREMITIES: Trace edema. MEDICATIONS: June 13, 2020, was reviewed. LABORATORY DATA: June 13, 2020, white count 32.8, hemoglobin 10.8. Sodium 140, potassium 4.3, chloride 97, carbon dioxide 21, BUN 105, creatinine 8.15, calcium is 8.5. ASSESSMENT AND PLAN: 1. Endstage renal disease, stable. We will continue current Thursday, Thursday, and Thursday hemodialysis regimen. Attempting between 2 and 3 L of fluid removal only as tolerated by the patient. 2. COVID-19 pneumonia-continuing supportive care. Currently, on steroids. The patient on high-flow O2. Off BiPAP at the present time. Overall, prognosis remains guarded. We will recheck CBC and basic metabolic profile and phosphorus in a.m. Job ID: [id number]
[2020-06-13] MEDS: Carvedilol 6.25 MG TAB PO SCH ×2 (10:00→17:17)
[2020-06-13 10:10] LABS: Vancomycin, Random 23.1 ug/mL (See Comment)
--- NOTE | 2020-06-13 10:21 | PRG ---
DATE OF SERVICE: 06/13/2020 SUBJECTIVE: A 75-year-old female. X-ray looks somewhat better. She is being dialyzed. She is slightly hypotensive, 98 systolic. OBJECTIVE: VITAL SIGNS: Temperature 97, pulse rate of 18. CHEST: No wheezing. No crackles. CARDIAC: Normal S1 and S2. No gallops. ABDOMEN: No masses. LABORATORY DATA: White count 32,000. All cultures are negative. Glucose 132. ASSESSMENT: Renal failure, gomez positive pneumonia, and leukocytosis. She is on meropenem and vancomycin. Add micafungin, though I doubt is any fungal infection. PLAN: Continue steroids, supportive care. Try and get her to high-flow eventually out of the MICU. Job ID: [id number]
[2020-06-13] MEDS: Heparin 5,000 UNITS/ML VIAL SC SCH ×3 (12:01→21:16)
[2020-06-13] MEDS: Calcitriol 0.25 MCG CAP PO SCH (12:46)
[2020-06-13] MEDS: Aspirin Chewable 81 MG TAB PO SCH (12:48)
[2020-06-13] MEDS: Atorvastatin Calcium 40 MG TAB PO SCH (12:48)
[2020-06-13] MEDS: NIFEdipine XL 30 MG TAB PO SCH (12:48)
[2020-06-13] MEDS: Dexamethasone 4 mg/ml Vial SLOW IVP SCH (12:49)
[2020-06-13] MEDS: Meropenem 500 MG in Sodium Chloride 0.9% 100 ML IVPB SCH ×2 (12:50→21:15)
[2020-06-13] MEDS ORDERED: Sodium Chloride 0.9% 500 ML IV SCH (14:15)
--- NOTE | 2020-06-13 14:29 | RAD ---
EXAM: Portable chest PROVIDED CLINICAL HISTORY: Pneumonia COMPARISON: 06/12/2020 FINDINGS: Significant interval change with respect to the prior examination is not apparent. IMPRESSION: As above.
[2020-06-13] MEDS: Guaifenesin DM 100-10/5 ML UDCUP PO SCH ×2 (15:38→21:16)
--- NOTE | 2020-06-13 15:55 | PDOC.HOSPP ---
- Subjective Encounter Date: 06/13/20 Encounter Time: 14:00 Subjective: F/u: COVID The patient was hypotensive when I saw her with BP 78. She had just had 2L removed from dialysis. The patient is non-verbal and doesn't answer questions. Appears altered Chest X ray shows worsening interstitial infiltrates - Objective Vital Signs & Weight: Vital Signs (12 hours) Temp Pulse BP Pulse Ox 06/13/20 12:48 96 96/54 L 06/13/20 10:59 97 06/13/20 10:00 93/54 L 06/13/20 04:00 97.1 F L Weight Admit Weight 233 lb 3.984 oz Weight 221 lb 9.033 oz Most Recent Monitor Data Heart Rate from ECG 91 NIBP 102/61 NIBP BP-Mean 74 Respiration from ECG 22 SpO2 98 I&O: 06/12/20 06/13/20 06/14/20 06:59 06:59 06:59 Intake Total 920 340 Output Total 0 Balance 920 340 Result Diagrams: 06/13/20 07:44 06/13/20 07:44 Additional Labs: Accuchecks 06/13/20 06/13/20 06/12/20 13:19 05:42 20:33 POC Glucose 99 132 H 257 H 06/12/20 16:45 POC Glucose 343 H Hospitalist ROS - Review of Systems Constitutional: denies: fever, chills - Medication Medications: Active Medications Generic Name Dose Route Start Last Admin Trade Name Freq PRN Reason Stop Dose Admin Acetaminophen 1,000 mg 05/25/20 19:15 05/29/20 08:48 Acetaminophen 500 Mg Tab PO 1,000 mg Q6H PRN Administration Mild Pain (1-3) Albumin Human 25 gm 06/13/20 09:48 06/13/20 10:26 Albumin 25% 25 Gm/100 Ml Bot IVPB 06/13/20 23:00 25 gm NOW REJI Administration Aspirin 81 mg 05/26/20 09:00 06/13/20 12:48 Aspirin Chewable 81 Mg Tab PO 81 mg DAILY REJI Administration Atorvastatin Calcium 80 mg 05/26/20 09:00 06/13/20 12:48 Atorvastatin Calcium 40 Mg Tab PO 80 mg DAILY REJI Administration Benzonatate 100 mg 05/25/20 19:15 06/01/20 20:20 Benzonatate 100 Mg Cap PO 100 mg Q6H PRN Administration Cough Calcitriol 0.25 mcg 06/09/20 09:00 06/13/20 12:46 Calcitriol 0.25 Mcg Cap PO 0.25 mcg DAILY REJI Administration Carvedilol 3.125 mg 05/26/20 08:00 06/13/20 10:00 Carvedilol 6.25 Mg Tab PO Not Given BID-WM REJI Dexamethasone 6 mg 06/09/20 09:00 06/13/20 12:49 Dexamethasone 4 Mg/Ml Vial SLOW IVP 6 mg DAILY REJI Administration Dextrose/Water 25 gm 05/25/20 19:15 06/07/20 16:46 Dextrose 50% Abboject 50 Ml Syringe SLOW IVP 25 gm PRN PRN Administration Hypoglycemia Famotidine 20 mg 05/26/20 21:00 06/12/20 21:27 Famotidine 20 Mg Tab PO 20 mg HS REJI Administration Guaifenesin 200 mg 05/25/20 19:15 06/01/20 00:52 Diabetic Tussin 200 Mg/10 Ml Udcup PO 200 mg Q4H PRN Administration Cough Guaifenesin/Dextromethorphan 15 ml 06/13/20 15:00 06/13/20 15:38 Guaifenesin Dm 100-10/5 Ml Udcup PO 06/16/20 15:01 15 ml TID REJI Administration Heparin Sodium (Porcine) 5,000 units 06/08/20 15:00 06/13/20 15:38 Heparin 5,000 Units/Ml Vial SC 5,000 units TID REJI Administration Meropenem 500 mg/ Sodium 100 mls @ 200 mls/hr 06/11/20 10:00 06/13/20 12:50 Chloride IVPB 100 mls 1000,2200 REJI Administration Insulin Glargine 55 units/ 0.55 mls @ 0 mls/hr 06/12/20 21:00 06/12/20 21:28 Miscellaneous Medication SC 0.55 mls HS REJI Administration Micafungin Sodium 50 mg/ 100 mls @ 100 mls/hr 06/13/20 10:00 06/13/20 12:51 Sodium Chloride IVPB 06/20/20 10:01 100 mls Q24HR REJI Administration Ibuprofen 400 mg 05/25/20 19:15 05/28/20 14:48 Ibuprofen 200 Mg Tab PO 400 mg Q4H PRN Administration Fever > 101 Insulin Human Lispro 0 units 05/25/20 19:15 06/12/20 21:30 Humalog 300 Units/3 Ml Vial SC 3 unit .BEDTIME SLIDING SC PRN Administration Bedtime Correctional Scale Insulin Human Lispro 0 units 06/03/20 13:37 06/12/20 17:06 Humalog 300 Units/3 Ml Vial SC 11 unit .AGGRESSIVE SLIDING PRN Administration Aggressive Correctional Scale Lorazepam 1 mg 06/04/20 14:37 06/05/20 06:43 Lorazepam 2 Mg/Ml Vial SLOW IVP 1 mg Q4H PRN Administration Anxiety/Agitation Mometasone Furoate/Formoterol Fumar 2 puff 06/04/20 18:30 06/12/20 20:43 Mometasone 200 Mcg/Formoterol 5 Mcg 120 Puff Inhaler INH 2 puff BID-RT REJI Administration Nifedipine 30 mg 05/26/20 09:00 06/13/20 12:48 Nifedipine Xl 30 Mg Tab PO Not Given DAILY REJI Sodium Chloride 10 ml 06/01/20 09:00 06/13/20 12:51 Flush - Normal Saline 10 Ml Syringe IVF 10 ml Q12HR REJI Administration - Exam General Appearance: NAD, awake alert General - other findings: dusky skin discoloration Eye: PERRL, anicteric sclera ENT: normocephalic atraumatic, no oropharyngeal lesions Neck: no JVD Heart: RRR, no murmur, no gallops, no rubs Respiratory: CTAB, no wheezes, no rales Gastrointestinal: soft, non-tender, non-distended, normal bowel sounds Extremities: no cyanosis, no clubbing, no edema Skin: normal turgor, no lesions, no rashes Neurological: cranial nerve grossly intact, normal sensation to touch, no weakness Hosp A/P - Plan Abdomen Xray: repositioning of NG tube Chest X ray 06/06: bilateral infiltrates Chest Xray 06/10 : improving bilateral COVID pneumonia This is a 75 year old female patient who presented with severe shaking. She also had bandemia. She was found to have COVID, currently in IMCU on high flow nasal cannula #Acute hypoxic respiratory failure secondary to COVID pneumonia vs COPD vs pulmonary edema - WBC is increasing to 32. Chest Xray 06/10 showed improving bilateral pneumonia. Vancomycin added 06/10, cefepime discontinued and switched to meropenem 06/11. - chest X ray 06/12 showed worsening multilobar pneumonia. Chest Xray 06/13 unchanged. Continue vanc/meropenem. WBC still around 32 . Micafungin was added by pulmonary - I feel patient does not have a good prognosis. Leukocytosis - WBC is still 32. Continue vanc and meropenem. Urine culture pending #ESRD -continue scheduled dialysis #Hyperkalemia - resolved Hypertension - continue nifedipine Type II diabetes - blood sugars 300-400. Will increase lantus to 38 units and increase lantus to 55 units qhs CAD - continue aspirin, statin
[2020-06-13] MEDS: Mometasone 200 MCG/Formoterol 5 MCG 120 PUFF INHALER INH SCH ×2 (16:44→19:01)
[2020-06-13] MEDS: Insulin Glargine 38 UNITS in Pre-Filled Syringe 1 EACH SC SCH (17:17)
[2020-06-13] MEDS: Famotidine 20 MG TAB PO SCH (21:16)
[2020-06-13] MEDS: Insulin Glargine 55 UNITS in Pre-Filled Syringe 1 EACH SC SCH (22:20)
[2020-06-14] MEDS: Mometasone 200 MCG/Formoterol 5 MCG 120 PUFF INHALER INH SCH ×2 (09:36→22:13)
--- NOTE | 2020-06-14 09:50 | PRG ---
DATE OF SERVICE: 06/14/2020 SUBJECTIVE: Marielle Lehman is a 75-year-old female with renal failure. X-ray looks much improved. She has leukocytosis, on several different antibiotics, but all cultures are negative. OBJECTIVE: VITAL SIGNS: On nasal O2, her saturations are 92%. Temperature 97, blood pressure 99/43, pulse 80, respirations 18. CHEST: No wheezing. No crackles. CARDIAC: Normal S1, S2. No gallops. ABDOMEN: Soft. No mass. ASSESSMENT AND PLAN: Chronic renal failure, on dialysis; gomez positive pneumonia; severe deconditioning; encephalopathy. Discontinue sedation. Continue PT deescalate antibiotics. CBC in the morning. Job ID: [id number]
[2020-06-14] MEDS: NIFEdipine XL 30 MG TAB PO SCH (10:02)
[2020-06-14] MEDS: Aspirin Chewable 81 MG TAB PO SCH (10:02)
[2020-06-14] MEDS: Carvedilol 6.25 MG TAB PO SCH ×2 (10:02→17:52)
[2020-06-14] MEDS: Guaifenesin DM 100-10/5 ML UDCUP PO SCH ×3 (10:03→22:13)
[2020-06-14] MEDS: Atorvastatin Calcium 40 MG TAB PO SCH (10:03)
[2020-06-14] MEDS: Calcitriol 0.25 MCG CAP PO SCH (10:03)
[2020-06-14] MEDS: Insulin Glargine 38 UNITS in Pre-Filled Syringe 1 EACH SC SCH (10:05)
[2020-06-14] MEDS: Heparin 5,000 UNITS/ML VIAL SC SCH ×3 (10:05→22:13)
[2020-06-14] MEDS: Meropenem 500 MG in Sodium Chloride 0.9% 100 ML IVPB SCH ×2 (10:05→22:12)
[2020-06-14] MEDS: Dexamethasone 4 mg/ml Vial SLOW IVP SCH (10:15)
[2020-06-14 12:07] LABS: Anion Gap 23 mmol/L (10-20); BUN (Urea Nitrogen) 75 mg/dL (9.8-20.1); Calc. Creatinine Clearance 13 mL/min (70-130); Carbon Dioxide 23 mmol/L (23-31); Chloride 96 mmol/L (98-107); Glucose 212 mg/dL (83-110); Potassium 4.2 mmol/L (3.5-5.1); Sodium 138 mmol/L (136-145)
[2020-06-14 12:08] LABS: Hemoglobin 9.2 g/dL (12.0-16.0); Mean Corpuscular HGB CONC 31.4 g/dL (32.0-36.0); Mean Corpuscular Hemoglobin 31.6 pg (27.0-31.0); Mean Platelet Volume 10.4 fL (7.4-10.4); Platelet Count 182 thou/uL (130-400); Red Blood Cell (RBC) Count 2.91 mill/uL (4.20-5.40); White Blood Cell (WBC) Count 27.2 thou/uL (4.8-10.8)
[2020-06-14] MEDS: HumaLOG 300 UNITS/3 ML VIAL SC PRN (12:09)
[2020-06-14 12:20] LABS: Band 12 % (5-11); Hypochromia SLIGHT = 6-15 cells (100X) (0-5/hpf); Lymphocytes 4 % (21-51); MDiff Complete? YES; Monocytes 10 % (0-10); Neutrophil 74 % (42-75); Platelet Morphology Comment Appears Adequate; Polychromasia SLIGHT = 2-3 cells (100X) (0-2/hpf)
[2020-06-14 12:55] LABS: Phosphorus 9.6 mg/dL (2.3-4.7)
--- NOTE | 2020-06-14 17:51 | PDOC.HOSPP ---
- Subjective Encounter Date: 06/14/20 Encounter Time: 13:00 Subjective: F/u: COVID The patient is off high flow nasal cannula and is down to 2L nasal cannula. She denies pain. She refuses to eat food and says she is not hungry She has been transferred to stroke unit - Objective Vital Signs & Weight: Vital Signs (12 hours) Temp Pulse Resp BP BP BP Pulse Ox 06/14/20 16:05 98.1 F 70 12 104/47 L 94 L 06/14/20 12:45 97.4 F L 71 18 98/39 L 06/14/20 12:00 97.5 F L 06/14/20 10:02 85 102/53 L 06/14/20 09:37 98 06/14/20 08:00 97 06/14/20 07:00 97.6 F Weight Admit Weight 233 lb 3.984 oz Weight 221 lb 9.033 oz Most Recent Monitor Data Heart Rate from ECG 74 NIBP 104/43 NIBP BP-Mean 63 Respiration from ECG 12 SpO2 87 I&O: 06/13/20 06/14/20 06/15/20 06:59 06:59 06:59 Intake Total 340 1550 810 Balance 340 1550 810 Result Diagrams: 06/14/20 11:31 06/14/20 11:31 Additional Labs: Accuchecks 06/14/20 06/14/20 06/14/20 17:03 11:34 05:43 POC Glucose 128 H 191 H 211 H 06/13/20 21:30 POC Glucose 170 H Hospitalist ROS - Review of Systems Constitutional: denies: fever, chills - Medication Medications: Active Medications Generic Name Dose Route Start Last Admin Trade Name Freq PRN Reason Stop Dose Admin Acetaminophen 1,000 mg 05/25/20 19:15 05/29/20 08:48 Acetaminophen 500 Mg Tab PO 1,000 mg Q6H PRN Administration Mild Pain (1-3) Aspirin 81 mg 05/26/20 09:00 06/14/20 10:02 Aspirin Chewable 81 Mg Tab PO 81 mg DAILY REJI Administration Atorvastatin Calcium 80 mg 05/26/20 09:00 06/14/20 10:03 Atorvastatin Calcium 40 Mg Tab PO 80 mg DAILY REJI Administration Benzonatate 100 mg 05/25/20 19:15 06/01/20 20:20 Benzonatate 100 Mg Cap PO 100 mg Q6H PRN Administration Cough Calcitriol 0.25 mcg 06/09/20 09:00 06/14/20 10:03 Calcitriol 0.25 Mcg Cap PO 0.25 mcg DAILY REJI Administration Carvedilol 3.125 mg 05/26/20 08:00 06/14/20 10:02 Carvedilol 6.25 Mg Tab PO 3.125 mg BID-WM REJI Administration Dextrose/Water 25 gm 05/25/20 19:15 06/07/20 16:46 Dextrose 50% Abboject 50 Ml Syringe SLOW IVP 25 gm PRN PRN Administration Hypoglycemia Famotidine 20 mg 05/26/20 21:00 06/13/20 21:16 Famotidine 20 Mg Tab PO 20 mg HS REJI Administration Guaifenesin 200 mg 05/25/20 19:15 06/01/20 00:52 Diabetic Tussin 200 Mg/10 Ml Udcup PO 200 mg Q4H PRN Administration Cough Guaifenesin/Dextromethorphan 15 ml 06/13/20 15:00 06/14/20 15:20 Guaifenesin Dm 100-10/5 Ml Udcup PO 06/16/20 15:01 15 ml TID REJI Administration Heparin Sodium (Porcine) 5,000 units 06/08/20 15:00 06/14/20 15:20 Heparin 5,000 Units/Ml Vial SC 5,000 units TID REJI Administration Meropenem 500 mg/ Sodium 100 mls @ 200 mls/hr 06/11/20 10:00 06/14/20 10:05 Chloride IVPB 100 mls 1000,2200 REJI Administration Insulin Glargine 55 units/ 0.55 mls @ 0 mls/hr 06/12/20 21:00 06/13/20 22:20 Miscellaneous Medication SC Not Given HS REJI Insulin Glargine 38 units/ 0.38 mls @ 0 mls/hr 06/13/20 09:00 06/14/20 10:05 Miscellaneous Medication SC 0.38 mls QAM REJI Administration Micafungin Sodium 50 mg/ 100 mls @ 100 mls/hr 06/13/20 10:00 06/14/20 10:13 Sodium Chloride IVPB 06/20/20 10:01 100 mls Q24HR REJI Administration Ibuprofen 400 mg 05/25/20 19:15 05/28/20 14:48 Ibuprofen 200 Mg Tab PO 400 mg Q4H PRN Administration Fever > 101 Insulin Human Lispro 0 units 05/25/20 19:15 06/12/20 21:30 Humalog 300 Units/3 Ml Vial SC 3 unit .BEDTIME SLIDING SC PRN Administration Bedtime Correctional Scale Insulin Human Lispro 0 units 06/03/20 13:37 06/14/20 12:09 Humalog 300 Units/3 Ml Vial SC 3 unit .AGGRESSIVE SLIDING PRN Administration Aggressive Correctional Scale Mometasone Furoate/Formoterol Fumar 2 puff 06/04/20 18:30 06/14/20 09:36 Mometasone 200 Mcg/Formoterol 5 Mcg 120 Puff Inhaler INH Not Given BID-RT REJI Nifedipine 30 mg 05/26/20 09:00 06/14/20 10:02 Nifedipine Xl 30 Mg Tab PO 30 mg DAILY REJI Administration Sodium Chloride 10 ml 06/01/20 09:00 06/14/20 10:14 Flush - Normal Saline 10 Ml Syringe IVF 10 ml Q12HR REJI Administration - Exam General Appearance: NAD, awake alert Eye: PERRL, anicteric sclera ENT: normocephalic atraumatic, no oropharyngeal lesions Neck: no JVD Heart: RRR, no murmur, no gallops, no rubs Respiratory: CTAB, no wheezes, no rales, no ronchi Gastrointestinal: soft, non-tender, non-distended, normal bowel sounds, no splenomegaly Extremities: no cyanosis, no clubbing, no edema Skin: normal turgor, no lesions, no rashes Neurological: cranial nerve grossly intact, normal sensation to touch, no weakness Musculoskeletal: normal tone, normal strength, no muscle wasting Psychiatric: A&O x 3 Hosp A/P - Plan Abdomen Xray: repositioning of NG tube Chest X ray 06/06: bilateral infiltrates Chest Xray 06/10 : improving bilateral COVID pneumonia Chest X ray 06/12: worsening multilobar pneumonia This is a 75 year old female patient who presented with severe shaking. She also had bandemia. She was found to have COVID, currently in IMCU on high flow nasal cannula #Acute hypoxic respiratory failure secondary to COVID pneumonia vs COPD vs pulmonary edema - WBC has improved to 27. Chest Xray 1/3 showed improving bilateral pneumonia but on 06/12 showed worsening multilobar pneumonia - Vancomycin added 06/10, cefepime discontinued and switched to meropenem 06/11. Micafungin added 06/13 - WBC is down to 27. Will discontinue vancomycin. Continue meropenem and micafungin Leukocytosis - WBC is improved to 27, stopped steroids #ESRD -continue scheduled dialysis #Hyperkalemia - resolved Hypertension - continue nifedipine Type II diabetes - controlled, continue lantus 38 units and lantus to 55 units qhs CAD - continue aspirin, statin
[2020-06-14] MEDS ORDERED: Sevelamer Carbonate 800 MG TAB PO SCH (18:00)
--- NOTE | 2020-06-14 19:10 | RAD ---
Exam: Chest one view HISTORY:Evaluate for improvement of pneumonia. Comparison: 06/13/2020 FINDINGS: Cardiac silhouette:Artery megaly. There are sternotomy wires. Nasogastric tube is incompletely evalua tresa. Aorta: Unremarkable Pulmonary vessels: Mildly prominent Costophrenic angles: Stable bilateral effusions LUNGS: Stable bibasilar opacities Pneumothorax: None Osseous abnormalities: None IMPRESSION: No significant interval change.
[2020-06-14] MEDS: Famotidine 20 MG TAB PO SCH (22:12)
[2020-06-14] MEDS: Insulin Glargine 55 UNITS in Pre-Filled Syringe 1 EACH SC SCH (22:14)
[2020-06-15] MEDS: Sodium Chloride 0.9% 250 ML IV SCH ×2 (02:55)
[2020-06-15 05:18] LABS: #Lymphocytes 1.4 thou/uL (1.20-3.40); #Neutrophils 20.1 thou/uL (1.40-6.50); %Basophils 0.1 % (0.0-1.0); %Eosinophils 0.1 % (0.0-10.0); %Lymphocytes 5.9 % (21.0-51.0); %Monocytes 12.1 % (0.0-10.0); %Neutrophils 81.9 % (42.0-75.0); Hemoglobin 9.9 g/dL (12.0-16.0); Mean Corpuscular HGB CONC 31.6 g/dL (32.0-36.0); Mean Corpuscular Hemoglobin 32.1 pg (27.0-31.0); Mean Platelet Volume 10.8 fL (7.4-10.4); Platelet Count 148 thou/uL (130-400); RBC Distribution Width 15.3 % (11.5-14.5); Red Blood Cell (RBC) Count 3.07 mill/uL (4.20-5.40); White Blood Cell (WBC) Count 24.5 thou/uL (4.8-10.8)
[2020-06-15] MEDS: Dextrose 50% Abboject 50 ML SYRINGE SLOW IVP PRN ×2 (05:47→16:38)
--- NOTE | 2020-06-15 06:35 | PRG ---
DATE OF SERVICE: 06/15/2020 SUBJECTIVE: Ms. Lehman is a 75-year-old white female with ESRD, on maintenance hemodialysis, and was initially admitted for COVID-19 pneumonia. From Pulmonary point of view, she has been slowly improving. She is currently off BiPAP. No new complaints today. OBJECTIVE: VITAL SIGNS: Blood pressure is ranging from 86/43 to 101/70, heart rate 82, respiratory rate 17, temperature 97.3, O2 saturation 98% - please note this is on room air. GENERAL: The patient is awake, alert, comfortable, obese, not in distress. SKIN: Adequate turgor. HEENT: She has pinkish conjunctivae, anicteric sclerae. NECK: No neck mass. No carotid bruits. No JVD. CHEST: No deformities. LUNGS: Clear breath sounds. HEART: Normal sinus rhythm. No murmurs, gallops, or rubs. ABDOMEN: Globular, soft, nontender. No masses. EXTREMITIES: No edema, no deformities. MEDICATIONS: From June 15, 2020, was reviewed. LABORATORY DATA: From June 15, 2020; white count 24.5, hemoglobin 9.9. From June 14, 2020; sodium 138, potassium 4.2, chloride 96, carbon dioxide 23, BUN 75, creatinine 6.03, calcium 8, phosphorus 9.6. ASSESSMENT AND PLAN: 1. Hyperphosphatemia. We will address this with hemodialysis. My plan is to do a 3.5-hour hemodialysis with this patient, if not longer. 2. End-stage renal disease. Continuing Thursday, Thursday, Thursday hemodialysis regimen. Due to the low blood pressure, we will minimize fluid removal with this patient. Consider volume repletion with dialysis. Starting this patient also on midodrine this morning. 3. COVID-19 pneumonia, clinically improving. Continue supportive care. Recheck CBC, basic met, phosphorus in the morning. Job ID: [id number] [facility] [place]
[2020-06-15] MEDS: Mometasone 200 MCG/Formoterol 5 MCG 120 PUFF INHALER INH SCH ×2 (06:38→22:27)
--- NOTE | 2020-06-15 08:08 | RAD ---
Radiograph abdomen one view: 06/15/2020 2:04 AM HISTORY: 75-year-old female status post NG tube placement COMPARISON: None FINDINGS: Image centered at upper abdomen demonstrates distal tip of Dobbhoff feeding tube overlying the expect ed location of the proximal stomach, within a decompressed stomach. IMPRESSION: Dobbhoff feeding tube distal tip in proximal stomach
[2020-06-15] MEDS ORDERED: Midodrine HCl 5 MG TAB PO SCH ×2 (09:00→17:45)
--- NOTE | 2020-06-15 10:35 | PRG ---
DATE OF SERVICE: 06/15/2020 SUBJECTIVE: Marielle Lehman is being dialyzed today. She is much better. OBJECTIVE: VITAL SIGNS: Temperature 97, pulse , respiratory rate 18, saturations 92% on room air, blood pressure . CHEST: No wheezing, no crackles. CARDIAC: Normal S1, S2. ABDOMEN: No masses. LABORATORY DATA: White count is still elevated at 24. All cultures are negative. ASSESSMENT: Baptiste positive pneumonia, respiratory failure, renal failure, overall much improved. PLAN: She has Nutrition, PT, dialysis. Supportive care. Job ID: [id number]
[2020-06-15 10:45] LABS: Glucose POC Confirmation 103 mg/dl (83-110)
[2020-06-15] MEDS: Carvedilol 6.25 MG TAB PO SCH ×2 (13:05→16:56)
[2020-06-15] MEDS: NIFEdipine XL 30 MG TAB PO SCH (13:06)
[2020-06-15] MEDS: Heparin 5,000 UNITS/ML VIAL SC SCH ×3 (13:39→20:02)
[2020-06-15] MEDS: Sevelamer Carbonate 800 MG TAB PO SCH ×3 (13:40→18:08)
[2020-06-15] MEDS: Guaifenesin DM 100-10/5 ML UDCUP PO SCH ×3 (13:44→20:00)
--- NOTE | 2020-06-15 14:09 | PDOC.HOSPP ---
- Subjective Encounter Date: 06/15/20 Encounter Time: 14:07 Subjective: Fu: COVID The patient is laying in bed. She still has no appetite and doesn't want to eat. Reports mild abdominal pain. She had five episodes of diarrhea over night Blood sugar was low this morning, lantus was held - Objective Vital Signs & Weight: Vital Signs (12 hours) Temp Pulse Resp BP BP BP Pulse Ox 06/15/20 13:06 69 06/15/20 13:05 102/53 L 06/15/20 07:45 97.4 F L 69 18 116/45 L 95 06/15/20 06:00 102/59 L 06/15/20 04:58 94/46 L 06/15/20 03:34 97.3 F L 82 17 86/43 L 98 Weight Admit Weight 233 lb 3.984 oz Weight 221 lb 9.033 oz Most Recent Monitor Data Heart Rate from ECG 74 NIBP 104/43 NIBP BP-Mean 63 Respiration from ECG 12 SpO2 87 I&O: 06/14/20 06/15/20 06/16/20 06:59 06:59 06:59 Intake Total 1550 1710 237 Output Total 0 Balance 1550 1710 237 Result Diagrams: 06/15/20 04:43 06/14/20 11:31 Additional Labs: Accuchecks 06/15/20 06/15/20 06/15/20 10:17 06:21 05:42 POC Glucose 89 129 H 45 L* 06/14/20 06/14/20 21:28 17:03 POC Glucose 203 H 128 H Hospitalist ROS - Review of Systems Constitutional: denies: fever, chills - Medication Medications: Active Medications Generic Name Dose Route Start Last Admin Trade Name Freq PRN Reason Stop Dose Admin Acetaminophen 1,000 mg 05/25/20 19:15 05/29/20 08:48 Acetaminophen 500 Mg Tab PO 1,000 mg Q6H PRN Administration Mild Pain (1-3) Aspirin 81 mg 05/26/20 09:00 06/14/20 10:02 Aspirin Chewable 81 Mg Tab PO 81 mg DAILY REJI Administration Atorvastatin Calcium 80 mg 05/26/20 09:00 06/14/20 10:03 Atorvastatin Calcium 40 Mg Tab PO 80 mg DAILY REJI Administration Benzonatate 100 mg 05/25/20 19:15 06/01/20 20:20 Benzonatate 100 Mg Cap PO 100 mg Q6H PRN Administration Cough Calcitriol 0.25 mcg 06/09/20 09:00 06/14/20 10:03 Calcitriol 0.25 Mcg Cap PO 0.25 mcg DAILY REJI Administration Carvedilol 3.125 mg 05/26/20 08:00 06/15/20 13:05 Carvedilol 6.25 Mg Tab PO Not Given BID-WM REJI Dextrose/Water 25 gm 05/25/20 19:15 06/15/20 05:47 Dextrose 50% Abboject 50 Ml Syringe SLOW IVP 25 gm PRN PRN Administration Hypoglycemia Famotidine 20 mg 05/26/20 21:00 06/14/20 22:12 Famotidine 20 Mg Tab PO 20 mg HS REJI Administration Guaifenesin 200 mg 05/25/20 19:15 06/01/20 00:52 Diabetic Tussin 200 Mg/10 Ml Udcup PO 200 mg Q4H PRN Administration Cough Guaifenesin/Dextromethorphan 15 ml 06/13/20 15:00 06/15/20 13:44 Guaifenesin Dm 100-10/5 Ml Udcup PO 06/16/20 15:01 Not Given TID REJI Heparin Sodium (Porcine) 5,000 units 06/08/20 15:00 06/15/20 13:39 Heparin 5,000 Units/Ml Vial SC Not Given TID REJI Meropenem 500 mg/ Sodium 100 mls @ 200 mls/hr 06/11/20 10:00 06/14/20 22:12 Chloride IVPB 06/16/20 10:01 100 mls 1000,2200 REJI Administration Micafungin Sodium 50 mg/ 100 mls @ 100 mls/hr 06/13/20 10:00 06/14/20 10:13 Sodium Chloride IVPB 06/20/20 10:01 100 mls Q24HR REJI Administration Ibuprofen 400 mg 05/25/20 19:15 05/28/20 14:48 Ibuprofen 200 Mg Tab PO 400 mg Q4H PRN Administration Fever > 101 Insulin Human Lispro 0 units 05/25/20 19:15 06/12/20 21:30 Humalog 300 Units/3 Ml Vial SC 3 unit .BEDTIME SLIDING SC PRN Administration Bedtime Correctional Scale Insulin Human Lispro 0 units 06/03/20 13:37 06/14/20 12:09 Humalog 300 Units/3 Ml Vial SC 3 unit .AGGRESSIVE SLIDING PRN Administration Aggressive Correctional Scale Midodrine 5 mg 06/15/20 09:00 06/15/20 09:23 Midodrine Hcl 5 Mg Tab PO 5 mg QAM REJI Administration Mometasone Furoate/Formoterol Fumar 2 puff 06/04/20 18:30 06/15/20 06:38 Mometasone 200 Mcg/Formoterol 5 Mcg 120 Puff Inhaler INH 2 puff BID-RT REJI Administration Nifedipine 30 mg 05/26/20 09:00 06/15/20 13:06 Nifedipine Xl 30 Mg Tab PO Not Given DAILY REJI Sevelamer Carbonate 800 mg 06/15/20 08:00 06/15/20 13:40 Sevelamer Carbonate 800 Mg Tab PO Not Given TID-WM REJI Sodium Chloride 10 ml 06/01/20 09:00 06/14/20 22:15 Flush - Normal Saline 10 Ml Syringe IVF 10 ml Q12HR REJI Administration - Exam General Appearance: NAD, awake alert General - other findings: doesn't answer many questions Eye: PERRL, anicteric sclera ENT: normocephalic atraumatic, no oropharyngeal lesions Neck: no JVD Heart: RRR, no murmur, no gallops, no rubs Respiratory: CTAB, no wheezes, no rales, no ronchi Gastrointestinal: soft, non-distended, normal bowel sounds Gastrointestinal - other findings: mild tenderness Extremities: no cyanosis, no clubbing, no edema Skin: normal turgor, no lesions, no rashes Hosp A/P - Plan Abdomen Xray: repositioning of NG tube Chest X ray 06/06: bilateral infiltrates Chest Xray 06/10 : improving bilateral COVID pneumonia Chest X ray 06/12: worsening multilobar pneumonia This is a 75 year old female patient who presented with severe shaking. She also had bandemia. She was found to have COVID, currently in IMCU on high flow nasal cannula #Acute hypoxic respiratory failure secondary to COVID pneumonia vs COPD vs pul monary edema - WBC has improved to 27. Chest Xray 06/10 showed improving bilateral pn eumonia but on 06/12 showed worsening multilobar pneumonia - Vancomycin added 1/3, cefepime discontinued and switched to meropenem 06/11. Micafungin added 06/13 - WBC is down to 24. Continue meropenem until 06/16 and micafungin for total of seven days C diff infection - antigen positive, toxin negative, but having diarrhea - will start oral vancomycin Poor appetite - currently getting NG tube feeds with nepro - speech consult to advance diet if possible #ESRD -continue scheduled dialysis #Hyperphosphatemia - getting dialysis today Hypertension - continue nifedipine #Type II diabetes #Hypoglycemia - controlled, discontinue lantus for now and montior with sliding scale insulin CAD - continue aspirin, statin
[2020-06-15] MEDS: Meropenem 500 MG in Sodium Chloride 0.9% 100 ML IVPB SCH ×2 (14:46→20:01)
[2020-06-15] MEDS: Calcitriol 0.25 MCG CAP PO SCH (14:47)
[2020-06-15] MEDS: Aspirin Chewable 81 MG TAB PO SCH (14:48)
[2020-06-15] MEDS: Atorvastatin Calcium 40 MG TAB PO SCH (14:48)
[2020-06-15] MEDS: predniSONE 20 MG TAB PO SCH (14:48)
[2020-06-15] MEDS: Insulin Glargine 38 UNITS in Pre-Filled Syringe 1 EACH SC SCH (15:36)
[2020-06-15] MEDS ORDERED: Dextrose 50% Abboject 50 ML SYRINGE ONE (16:36)
[2020-06-15] MEDS: Dextrose 5 % And 0.9 % NaCl 1,000 ML IV SCH (17:45)
[2020-06-15] MEDS: Vancomycin HCl 25 MG/ML Oral PER TUBE SCH ×2 (18:08→20:00)
--- NOTE | 2020-06-15 18:24 | RAD ---
KUB: 06/15/20 HISTORY: NG tube placement. This film only includes the upper abdomen. It shows an NG tube. The tip of the tube is overlying the antrum region of the stomach. Surgical clips are seen in the upper abdomen. IMPRESSION: NG tube. The tube lies in the region of the antrum region of the stomach. POS: OFF
[2020-06-15] MEDS: Midodrine HCl 5 MG TAB PO SCH (20:02)
[2020-06-15] MEDS: Famotidine 20 MG TAB PO SCH (20:02)
[2020-06-15] MEDS ORDERED: Sodium Chloride 0.9% 1,000 ML IV SCH (21:15)
[2020-06-15] MEDS ORDERED: Sodium Chloride 0.9% 500 ML IV SCH (21:15)
[2020-06-16] MEDS: Vancomycin HCl 25 MG/ML Oral PER TUBE SCH ×4 (02:28→21:27)
[2020-06-16 05:44] LABS: Anion Gap 17 mmol/L (10-20); BUN (Urea Nitrogen) 36 mg/dL (9.8-20.1); Calc. Creatinine Clearance 22 mL/min (70-130); Calcium 7.1 mg/dL (7.8-10.44); Carbon Dioxide 24 mmol/L (23-31); Chloride 98 mmol/L (98-107); Glucose 140 mg/dL (83-110); Phosphorus 4.7 mg/dL (2.3-4.7); Potassium 3.9 mmol/L (3.5-5.1); Sodium 135 mmol/L (136-145)
[2020-06-16 06:29] LABS: Mean Corpuscular HGB CONC 32.7 g/dL (32.0-36.0); Mean Corpuscular Hemoglobin 32.7 pg (27.0-31.0); Mean Platelet Volume 10.3 fL (7.4-10.4); Platelet Count 160 thou/uL (130-400); Red Blood Cell (RBC) Count 2.75 mill/uL (4.20-5.40); White Blood Cell (WBC) Count 15.7 thou/uL (4.8-10.8)
[2020-06-16 06:30] LABS: Band 2 % (5-11); Hypochromia SLIGHT = 6-15 cells (100X) (0-5/hpf); Lymphocytes 5 % (21-51); MDiff Complete? YES; Monocytes 9 % (0-10); Neutrophil 84 % (42-75); Platelet Morphology Comment Appears Adequate
[2020-06-16] MEDS: Mometasone 200 MCG/Formoterol 5 MCG 120 PUFF INHALER INH SCH ×2 (07:03→19:36)
[2020-06-16] MEDS ORDERED: Epoetin (ESRD) 20,000 UNITS/ML SC SCH (09:15)
--- NOTE | 2020-06-16 09:19 | PRG ---
DATE OF SERVICE: 06/16/2020 SUBJECTIVE: Ms. Lehman is a 75-year-old white female with ESRD and currently on maintenance hemodialysis. She was initially admitted for COVID-19 pneumonia. Her clinical course was marked by deterioration of the pulmonary status. She was transferred to ICU and was placed on BiPAP. She is doing much better. She is off BiPAP. No new complaints today except feeling tired, still with decreased appetite, and NG tube has been placed. No complaints of shortness of breath. OBJECTIVE: VITAL SIGNS: Blood pressure is 93/45, heart rate 88, respiratory rate 18, temperature 97.7, O2 saturation 92%. GENERAL: The patient is awake, alert, comfortable, not in overt distress. SKIN: Adequate turgor. HEENT: She has slightly pale conjunctivae. Anicteric sclerae. No neck mass. No carotid bruits. No JVD. CHEST: No deformities. LUNGS: Decreased breath sounds. HEART: Normal sinus rhythm. No murmurs. No gallops. No rubs. ABDOMEN: Globular, soft, nontender. No masses. EXTREMITIES: No edema. No deformities. MEDICATIONS: June 16, 2020, reviewed. LABORATORY DATA: June 16, 2020; white count 15.7, hemoglobin 9. Sodium 135, potassium 3.9, chloride 98, carbon dioxide 24, BUN 36, creatinine 3.58, calcium 7.1, and phosphorus is 4.7. ASSESSMENT AND PLAN: 1. End-stage renal disease, stable, underwent hemodialysis yesterday and fluid was not removed much. She was given volume repletion with the dialysis yesterday. Continue supportive care. No indication for any emergent hemodialysis. 2. Anemia, start Epogen 7500 units subcu q.week with this patient. 3. Hyperphosphatemia, resolved with dialysis. 4. COVID-19 pneumonia, clinically much improved, doing better over the last few days. Recheck CBC and basic metabolic panel in a.m. Job ID: [id number]
[2020-06-16] MEDS: Atorvastatin Calcium 40 MG TAB PO SCH (10:27)
[2020-06-16] MEDS: Aspirin Chewable 81 MG TAB PO SCH (10:27)
[2020-06-16] MEDS: Guaifenesin DM 100-10/5 ML UDCUP PO SCH ×2 (10:27→15:23)
[2020-06-16] MEDS: Sevelamer Carbonate 800 MG TAB PO SCH ×3 (10:27→16:37)
[2020-06-16] MEDS: predniSONE 20 MG TAB PO SCH (10:27)
[2020-06-16] MEDS: Heparin 5,000 UNITS/ML VIAL SC SCH ×3 (10:28→21:29)
[2020-06-16] MEDS: Calcitriol 0.25 MCG CAP PO SCH (10:28)
[2020-06-16] MEDS: Midodrine HCl 5 MG TAB PO SCH ×3 (10:28→21:28)
[2020-06-16] MEDS: Meropenem 500 MG in Sodium Chloride 0.9% 100 ML IVPB SCH ×2 (10:33→21:28)
[2020-06-16] MEDS: Dextrose 5 % And 0.9 % NaCl 1,000 ML IV SCH (10:43)
[2020-06-16] MEDS ORDERED: EPOETIN ALFA-EPBX (ESRD) 4,000 UNIT/ML VIAL SC SCH (12:00)
--- NOTE | 2020-06-16 13:23 | PDOC.HOSPP ---
- Subjective Encounter Date: 06/16/20 Encounter Time: 05:00 Subjective: F/u: pneumonia THe patient has no complaints. She is on 3L nasal cannula saturating 92%. She denies cough or shortness of breath Decreased appetite - patient still has NG tube getting tube feeds. She still refuses to eat anything. Awaiting speech to re-evaluate her C diff - patient denies abdominal pain, nausea, vomiting. Her diarrhea has resolved. She has not gotten out of bed yet - Objective Vital Signs & Weight: Vital Signs (12 hours) Temp Pulse Resp BP Pulse Ox 06/16/20 11:36 97.6 F 80 16 109/46 L 94 L 06/16/20 08:00 92 L 06/16/20 07:25 97.7 F 88 18 93/45 L 92 L 06/16/20 03:56 97.6 F 67 14 107/53 L 97 06/16/20 02:41 98/38 L Weight Admit Weight 233 lb 3.984 oz Weight 221 lb 9.033 oz Most Recent Monitor Data Heart Rate from ECG 74 NIBP 104/43 NIBP BP-Mean 63 Respiration from ECG 12 SpO2 87 I&O: 06/15/20 06/16/20 06/17/20 06:59 06:59 06:59 Intake Total 1710 1009 Output Total 0 Balance 1710 1009 Result Diagrams: 06/16/20 04:56 06/16/20 04:56 Additional Labs: Accuchecks 06/16/20 06/16/20 06/15/20 11:12 05:38 20:50 POC Glucose 137 H 121 H 158 H Hospitalist ROS - Review of Systems Constitutional: denies: fever, chills - Medication Medications: Active Medications Generic Name Dose Route Start Last Admin Trade Name Freq PRN Reason Stop Dose Admin Acetaminophen 1,000 mg 05/25/20 19:15 05/29/20 08:48 Acetaminophen 500 Mg Tab PO 1,000 mg Q6H PRN Administration Mild Pain (1-3) Aspirin 81 mg 05/26/20 09:00 06/16/20 10:27 Aspirin Chewable 81 Mg Tab PO 81 mg DAILY REJI Administration Atorvastatin Calcium 80 mg 05/26/20 09:00 06/16/20 10:27 Atorvastatin Calcium 40 Mg Tab PO 80 mg DAILY REJI Administration Benzonatate 100 mg 05/25/20 19:15 06/01/20 20:20 Benzonatate 100 Mg Cap PO 100 mg Q6H PRN Administration Cough Calcitriol 0.25 mcg 06/09/20 09:00 06/16/20 10:28 Calcitriol 0.25 Mcg Cap PO 0.25 mcg DAILY REJI Administration Dextrose/Water 25 gm 05/25/20 19:15 06/15/20 16:38 Dextrose 50% Abboject 50 Ml Syringe SLOW IVP 25 gm PRN PRN Administration Hypoglycemia Epoetin Lee-epbx 7,500 unit 06/16/20 12:00 06/16/20 12:46 Epoetin Lee-Epbx (Esrd) 4,000 Unit/Ml Vial SC 7,500 unit Q7D REJI Administration Famotidine 20 mg 05/26/20 21:00 06/15/20 20:02 Famotidine 20 Mg Tab PO 20 mg HS REJI Administration Guaifenesin 200 mg 05/25/20 19:15 06/01/20 00:52 Diabetic Tussin 200 Mg/10 Ml Udcup PO 200 mg Q4H PRN Administration Cough Guaifenesin/Dextromethorphan 15 ml 06/13/20 15:00 06/16/20 10:27 Guaifenesin Dm 100-10/5 Ml Udcup PO 06/16/20 15:01 15 ml TID REJI Administration Heparin Sodium (Porcine) 5,000 units 06/08/20 15:00 06/16/20 10:28 Heparin 5,000 Units/Ml Vial SC 5,000 units TID REJI Administration Micafungin Sodium 50 mg/ 100 mls @ 100 mls/hr 06/13/20 10:00 06/16/20 10:32 Sodium Chloride IVPB 06/20/20 10:01 100 mls Q24HR REJI Administration Ibuprofen 400 mg 05/25/20 19:15 05/28/20 14:48 Ibuprofen 200 Mg Tab PO 400 mg Q4H PRN Administration Fever > 101 Insulin Human Lispro 0 units 05/25/20 19:15 06/12/20 21:30 Humalog 300 Units/3 Ml Vial SC 3 unit .BEDTIME SLIDING SC PRN Administration Bedtime Correctional Scale Insulin Human Lispro 0 units 06/03/20 13:37 06/14/20 12:09 Humalog 300 Units/3 Ml Vial SC 3 unit .AGGRESSIVE SLIDING PRN Administration Aggressive Correctional Scale Midodrine 5 mg 06/15/20 21:00 06/16/20 10:28 Midodrine Hcl 5 Mg Tab PO 5 mg TID REJI Administration Mometasone Furoate/Formoterol Fumar 2 puff 06/04/20 18:30 06/16/20 07:03 Mometasone 200 Mcg/Formoterol 5 Mcg 120 Puff Inhaler INH 2 puff BID-RT REJI Administration Prednisone 20 mg 06/15/20 08:00 06/16/20 10:27 Prednisone 20 Mg Tab PO 20 mg QAM-WM REJI Administration Sevelamer Carbonate 800 mg 06/15/20 08:00 06/16/20 12:45 Sevelamer Carbonate 800 Mg Tab PO 800 mg TID-WM REJI Administration Sodium Chloride 10 ml 06/01/20 09:00 06/16/20 10:28 Flush - Normal Saline 10 Ml Syringe IVF Not Given Q12HR REJI Vancomycin HCl 125 mg 06/15/20 15:00 06/16/20 10:32 Vancomycin Hcl 25 Mg/Ml Oral PER TUBE 125 mg 0300,0900,1500,2100 REJI Administration - Exam General Appearance: NAD, awake alert General - other findings: morbidly obese Eye: PERRL, anicteric sclera ENT: normocephalic atraumatic, no oropharyngeal lesions ENT - other findings: NG tube in place Neck: no JVD Heart: RRR, no murmur, no gallops, no rubs Respiratory: CTAB, no wheezes, no rales, no ronchi Gastrointestinal: soft, non-tender, non-distended, normal bowel sounds Extremities: no cyanosis, no clubbing, no edema Skin: normal turgor, no lesions, no rashes Neurological: cranial nerve grossly intact, normal sensation to touch, no weakness Hosp A/P - Plan Abdomen Xray: repositioning of NG tube Chest X ray 06/06: bilateral infiltrates Chest Xray 06/10 : improving bilateral COVID pneumonia Chest X ray 06/12: worsening multilobar pneumonia This is a 75 year old female patient who presented with severe shaking. She also had bandemia. She was found to have COVID, currently in IMCU on high flow nasal cannula #Acute hypoxic respiratory failure secondary to COVID pneumonia vs COPD vs pulmonary edema - Chest Xray 06/10 showed improving bilateral pneumonia but on 06/12 showed worsening multilobar pneumonia. Vancomycin added 06/10, cefepime discontinued and switched to meropenem 06/11. Micafungin added 06/13 - 06/16: WBC is now down to 15. Continue meropenem until 06/18 to complete 7 day course. Continue micafungin for seven days. Try to wean oxygen to maintain sat > 92% C diff infection - antigen positive, toxin negative, but having diarrhea. Started oral vancomycin 06/15 Poor appetite - currently getting NG tube feeds with nepro. Attempt to have speech to re- evaluate to see whether she can take oral and hopefully can d/c NG tube #ESRD -continue scheduled dialysis #Hyperphosphatemia - getting dialysis today Hypertension - continue nifedipine #Type II diabetes #Hypoglycemia -resolved - off lantus due to poor po intake. Blood sugar 80-130 CAD - continue aspirin, statin Physical deconditioning - needs PT
[2020-06-16] MEDS: Famotidine 20 MG TAB PO SCH (21:29)
[2020-06-17] MEDS: Vancomycin HCl 25 MG/ML Oral PER TUBE SCH ×3 (03:54→16:09)
[2020-06-17 05:39] LABS: Anion Gap 18 mmol/L (10-20); BUN (Urea Nitrogen) 61 mg/dL (9.8-20.1); Calc. Creatinine Clearance 15 mL/min (70-130); Calcium 7.4 mg/dL (7.8-10.44); Carbon Dioxide 23 mmol/L (23-31); Chloride 99 mmol/L (98-107); Glucose 112 mg/dL (83-110); Potassium 4.1 mmol/L (3.5-5.1); Sodium 136 mmol/L (136-145)
[2020-06-17 06:07] LABS: Band 1 % (5-11); Eosinophils 1 % (0-10); Hemoglobin 8.3 g/dL (12.0-16.0); Lymphocytes 5 % (21-51); MDiff Complete? YES; Mean Corpuscular HGB CONC 32.3 g/dL (32.0-36.0); Mean Corpuscular Hemoglobin 32.2 pg (27.0-31.0); Mean Corpuscular Volume 99.6 fL (78.0-98.0); Monocytes 5 % (0-10); Myelocyte 1 % (0-0); Neutrophil 87 % (42-75); Platelet Count 67 thou/uL (130-400); Platelet Morphology Comment Appears Decreased; RBC Distribution Width 15.3 % (11.5-14.5); Red Blood Cell (RBC) Count 2.59 mill/uL (4.20-5.40); White Blood Cell (WBC) Count 11.4 thou/uL (4.8-10.8)
[2020-06-17] MEDS: Mometasone 200 MCG/Formoterol 5 MCG 120 PUFF INHALER INH SCH ×2 (07:47→18:47)
[2020-06-17] MEDS: Atorvastatin Calcium 40 MG TAB PO SCH (09:00)
[2020-06-17] MEDS: predniSONE 20 MG TAB PO SCH (09:00)
[2020-06-17] MEDS: Aspirin Chewable 81 MG TAB PO SCH (09:01)
[2020-06-17] MEDS: Midodrine HCl 5 MG TAB PO SCH ×3 (09:01→21:00)
[2020-06-17] MEDS: Sevelamer Carbonate 800 MG TAB PO SCH ×3 (09:01→16:09)
[2020-06-17] MEDS: Calcitriol 0.25 MCG CAP PO SCH (09:01)
[2020-06-17] MEDS: Heparin 5,000 UNITS/ML VIAL SC SCH ×3 (09:01→20:59)
[2020-06-17] MEDS: Meropenem 500 MG in Sodium Chloride 0.9% 100 ML IVPB SCH (09:02)
--- NOTE | 2020-06-17 14:09 | PDOC.HOSPP ---
- Subjective Encounter Date: 06/17/20 Subjective: She reports she is doing well. She feels well and has no complaints. Says her diarrhea has stopped. - Objective Vital Signs & Weight: Vital Signs (12 hours) Temp Pulse Resp BP Pulse Ox 06/17/20 08:00 97.4 F L 76 17 107/55 L 94 L 06/17/20 04:00 97.7 F 80 16 111/49 L 95 Weight Admit Weight 233 lb 3.984 oz Weight 221 lb 9.033 oz Most Recent Monitor Data Heart Rate from ECG 74 NIBP 104/43 NIBP BP-Mean 63 Respiration from ECG 12 SpO2 87 I&O: 06/16/20 06/17/20 06/18/20 06:59 06:59 06:59 Intake Total 1009 2407 297 Output Total 0 Balance 1009 2407 297 Result Diagrams: 06/17/20 04:56 06/17/20 04:56 Additional Labs: Accuchecks 06/16/20 06/16/20 21:07 16:40 POC Glucose 138 H 160 H Hospitalist ROS - Medication Medications: Active Medications Generic Name Dose Route Start Last Admin Trade Name Freq PRN Reason Stop Dose Admin Acetaminophen 1,000 mg 05/25/20 19:15 05/29/20 08:48 Acetaminophen 500 Mg Tab PO 1,000 mg Q6H PRN Administration Mild Pain (1-3) Aspirin 81 mg 05/26/20 09:00 06/17/20 09:01 Aspirin Chewable 81 Mg Tab PO 81 mg DAILY REJI Administration Atorvastatin Calcium 80 mg 05/26/20 09:00 06/17/20 09:00 Atorvastatin Calcium 40 Mg Tab PO 80 mg DAILY REJI Administration Benzonatate 100 mg 05/25/20 19:15 06/01/20 20:20 Benzonatate 100 Mg Cap PO 100 mg Q6H PRN Administration Cough Calcitriol 0.25 mcg 06/09/20 09:00 06/17/20 09:01 Calcitriol 0.25 Mcg Cap PO 0.25 mcg DAILY REJI Administration Dextrose/Water 25 gm 05/25/20 19:15 06/15/20 16:38 Dextrose 50% Abboject 50 Ml Syringe SLOW IVP 25 gm PRN PRN Administration Hypoglycemia Epoetin Lee-epbx 7,500 unit 06/16/20 12:00 06/16/20 12:46 Epoetin Lee-Epbx (Esrd) 4,000 Unit/Ml Vial SC 7,500 unit Q7D REJI Administration Famotidine 20 mg 05/26/20 21:00 06/16/20 21:29 Famotidine 20 Mg Tab PO 20 mg HS REJI Administration Guaifenesin 200 mg 05/25/20 19:15 06/01/20 00:52 Diabetic Tussin 200 Mg/10 Ml Udcup PO 200 mg Q4H PRN Administration Cough Heparin Sodium (Porcine) 5,000 units 06/08/20 15:00 06/17/20 14:06 Heparin 5,000 Units/Ml Vial SC Not Given TID REJI Micafungin Sodium 50 mg/ 100 mls @ 100 mls/hr 06/13/20 10:00 06/17/20 09:06 Sodium Chloride IVPB 06/20/20 10:01 100 mls Q24HR REJI Administration Meropenem 500 mg/ Sodium 100 mls @ 200 mls/hr 06/16/20 22:00 06/17/20 09:02 Chloride IVPB 06/18/20 23:59 100 mls 1000,2200 REJI Administration Ibuprofen 400 mg 05/25/20 19:15 05/28/20 14:48 Ibuprofen 200 Mg Tab PO 400 mg Q4H PRN Administration Fever > 101 Insulin Human Lispro 0 units 05/25/20 19:15 06/12/20 21:30 Humalog 300 Units/3 Ml Vial SC 3 unit .BEDTIME SLIDING SC PRN Administration Bedtime Correctional Scale Insulin Human Lispro 0 units 06/03/20 13:37 06/14/20 12:09 Humalog 300 Units/3 Ml Vial SC 3 unit .AGGRESSIVE SLIDING PRN Administration Aggressive Correctional Scale Midodrine 5 mg 06/15/20 21:00 06/17/20 14:06 Midodrine Hcl 5 Mg Tab PO 5 mg TID REJI Administration Mometasone Furoate/Formoterol Fumar 2 puff 06/04/20 18:30 06/17/20 07:47 Mometasone 200 Mcg/Formoterol 5 Mcg 120 Puff Inhaler INH 2 puff BID-RT REJI Administration Prednisone 20 mg 06/15/20 08:00 06/17/20 09:00 Prednisone 20 Mg Tab PO 20 mg QAM-WM REJI Administration Sevelamer Carbonate 800 mg 06/15/20 08:00 06/17/20 12:48 Sevelamer Carbonate 800 Mg Tab PO 800 mg TID-WM REJI Administration Sodium Chloride 10 ml 06/01/20 09:00 06/17/20 09:02 Flush - Normal Saline 10 Ml Syringe IVF 10 ml Q12HR REJI Administration Vancomycin HCl 125 mg 06/15/20 15:00 06/17/20 10:34 Vancomycin Hcl 25 Mg/Ml Oral PER TUBE 125 mg 0300,0900,1500,2100 REJI Administration - Exam General Appearance: NAD, awake alert General - other findings: NG tube in place. Heart: RRR, no murmur, no gallops, no rubs, normal peripheral pulses Respiratory: CTAB, no wheezes, no rales, no ronchi, normal chest expansion, no tachypnea, normal percussion Gastrointestinal: soft, non-tender, non-distended, normal bowel sounds, no palpable masses, no hepatomegaly, no splenomegaly, no bruit Extremities: no cyanosis, no clubbing, no edema Musculoskeletal: generalized weakness Psychiatric: normal affect, normal behavior Hosp A/P (1) Acute hypoxemic respiratory failure Code(s): J96.01 - ACUTE RESPIRATORY FAILURE WITH HYPOXIA Status: Acute (2) Pneumonia due to COVID-19 virus Code(s): U07.1 - COVID-19; J12.89 - OTHER VIRAL PNEUMONIA Status: Acute (3) Atrial fibrillation Code(s): I48.91 - UNSPECIFIED ATRIAL FIBRILLATION Status: Chronic (4) ESRD (end stage renal disease) on dialysis Code(s): N18.6 - END STAGE RENAL DISEASE; Z99.2 - DEPENDENCE ON RENAL DIALYSIS Status: Acute (5) DM type 2 (diabetes mellitus, type 2) Status: Chronic Qualifiers: Diabetes mellitus superintendent container terminal insulin use: with superintendent container terminal use Diabetes mellitus complication status: with kidney complications Diabetes mellitus complication detail: with chronic kidney disease Chronic kidney disease stage: stage 4 (severe) Qualified Code(s): E11.22 - Type 2 diabetes mellitus with diabetic chronic kidney disease; N18.4 - Chronic kidney disease, stage 4 (severe); Z79.4 - correction (current) use of insulin (6) Hypertension Code(s): I10 - ESSENTIAL (PRIMARY) HYPERTENSION Status: Chronic Qualifiers: Hypertension type: essential hypertension Qualified Code(s): I10 - Essential (primary) hypertension (7) Hypocalcemia Code(s): E83.51 - HYPOCALCEMIA Status: Acute (8) Physical deconditioning Code(s): R53.81 - OTHER MALAISE Status: Acute (9) Myoclonus Code(s): G25.3 - MYOCLONUS Status: Acute (10) Anorexia Code(s): R63.0 - ANOREXIA Status: Acute (11) Poor appetite Code(s): R63.0 - ANOREXIA Status: Acute - Plan Acute hypoxic respiratory failure: Secondary to Covid 19 pneumonia. This time the patient continues to require 3 L of nasal cannula oxygen. Covid 19 pneumonia: Patient was originally treated with a course of Decadron. That has been discontinued. Possible bacterial pneumonia: Patient had significant elevation of her white count but this was likely due to steroids. Chest x-ray on 06/12 showed subtle increase in diffuse infiltrates. In light of this she was started on broad-spectrum antibiotics and subsequently antifungal's. Unclear that the patient has significant bacterial infection. Much of this is likely simply related to her prior Covid infection. We will ask ID to evaluate the patient's need for these antibiotics in the p.o. vancomycin. Diabetes mellitus: Severe hyperglycemia secondary to Decadron. Generally well controlled. Appears to be primarily on aggressive sliding scale. She has not had a significant bout of p.o. intake other than NG tube feeds. We will continue to monitor as the changes. Atrial fibrillation: Rate controlled. She was originally on oral Eliquis. She is currently on low-dose heparin. We will need to consider long-term anticoagulation options at the time of discharge. End-stage renal disease: Continue to follow with nephrology and dialysis as needed. Hypocalcemia: Corrected calcium is normal. Hypertension: Adequate control. Continue current medications. Myoclonus: Suspect benign and likely related to steroids. Neurology consult appreciated. Poor appetite: Patient has had an NG tube. She has been getting tube feeds. She is currently very much awake and alert and ready to have rescreening for her swallow. Hopefully we can get her eating and get the NG tube out soon. Diarrhea: Patient was positive for C. difficile antigen but her toxigenic C. difficile by PCR was negative. Diarrhea was likely from her tube feeds. Diarrhea appears to have stopped. Anticipate we will be able to discontinue the p.o. vancomycin. Deconditioning: Multifactorial. Will need rehab at discharge.
[2020-06-17] MEDS: HumaLOG 300 UNITS/3 ML VIAL SC PRN ×2 (16:22→21:01)
[2020-06-17] MEDS: Famotidine 20 MG TAB PO SCH (20:58)
--- NOTE | 2020-06-18 02:22 | CON ---
DATE OF CONSULTATION: 06/17/2020 HISTORY OF PRESENT ILLNESS: 75-year-old with a quite complex history, some details of it is not very well explained in the multiple prior notes, it includes a type 2 diabetes, breast cancer with bilateral mastectomies, and an episode of right ureter laceration, presumably due to complications related to hysterectomy. Also, there is a history of right nephrectomy, which is not well explained in the notes. Not sure if this is related to the ureter injury. She has had multiple admissions in the past related to respiratory complications associated with COPD/bronchitis. She has developed end-stage renal disease, on hemodialysis through an AV fistula. She also has morbid obesity with sleep apnea. Her last admission in 2019 was in July when she came in with acute hypoxic respiratory failure secondary to an influenza infection. She also had sepsis presumably due to bacterial pneumonia. This time, she presents with what she describes as shaking and without documented fever or chills. On arrival, her BP was 130/90 pulse 108. She was breathing 32 times a minute, and a temperature of 98.9, O2 saturation 98% on room air. She had a temperature of 100.9 max in the emergency room. The heart exam was normal. Respiratory exam described as normal. She had what was described as rhythmic shaking while talking upper extremities as well as lower extremities. The initial findings included a white cell count of 4.5, hemoglobin 13, and platelets 103,000 with 40% bands. Her sodium was 137, creatinine 4.46, AST 35, other liver functions were within normal limits. Albumin 3.4. CRP first checked on the was 0.79. She had a urinalysis with 4 to 6 wbc's. She had a SARS-CoV-2 PCR positive on May 25 and imaging studies on admission included a chest x-ray, which demonstrated cardiomegaly and mild prominence of pulmonary vascularity. The next x-ray obtained on showed worsening multifocal infiltrates. On admission, the initial impression included possibility of sepsis, empiric coverage with cefepime and vancomycin started. Possibility of SARS-CoV-2 infection was mentioned, the results of PCR were not available yet. The next day following admission, she was coughing frequently and had less dyspnea, had some chest pain. The COVID test returned positive and she was continued on Decadron and broad-spectrum antimicrobials. She was not a candidate for remdesivir due to her renal function. She continued having intermittent muscle spasms or twitches or mild clonus. On May, she was started to require high-flow oxygen supplementation and then started to require intermittent BiPAP as well. On June 04, she had a brief episode of pulseless electrical activity, which reversed after BiPAP was reapplied. She had to be restrained then to avoid the same event associated with removal of the device. She continued requiring BiPAP the next few days, then did not appear to be very responsive. She was still on cefepime on June 09. On June 11, she had already been transitioned to high-flow nasal cannula O2 supplementation and she appeared to be more verbal. She had been switched from cefepime to meropenem. On June 13, she was described as hypotensive and nonverbal. The abdomen has been all along nontender to palpation, some modification in her insulin regimen was initiated. On June 14, she had been transition from high-flow nasal cannula 2 L. Decadron was discontinued on June 09 and the prednisone was started on July 03. This seems to coincide with the decrease in her neutrophil count. Currently, Ms. Lehman has an NG tube in place. She started having diarrhea on June 15 and the NG actually was inserted to administer nutrition not for vomiting or for decompression. We were asked to evaluate her because of the antimicrobials to see if they can be modified or discontinued. Currently, Ms. Lehman is awake. She is disoriented and could not tell me the date or the location. Denied headaches. No dyspnea or cough. No abdominal pain. She is incontinent, in a diaper. No joint symptoms. PAST MEDICAL HISTORY: Type 2 diabetes; coronary artery disease with myocardial infarction; bypass graft surgery, three vessels; hysterectomy; appendectomy; right nephrectomy, unclear the reason for it, end-stage renal disease, on hemodialysis with AV fistula; breast cancer with left mastectomy; COPD/bronchitis; hyperlipidemia; atrial fibrillation, on Eliquis; hysterectomy. ALLERGIES: CODEINE AND MORPHINE. FAMILY HISTORY: Hypertension, diabetes, coronary artery disease. SOCIAL HISTORY: Resident in [place] by herself. Former smoker. CURRENT MEDICATIONS: 1. Lipitor. 2. Tessalon. 4. Pepcid. 5. Heparin. 6. Apresoline. 7. Insulin. 8. Meropenem. 9. Micafungin. 10. Prednisone. 11. Vancomycin. PHYSICAL EXAMINATION: VITAL SIGNS: She has been afebrile throughout her hospital stay except for the very beginning when she had 100 x 1. BP was 130/53, heart rate 61, respiratory rate 16, O2 saturation 96 with 3 L nasal cannula. SKIN: No areas of skin breakdown are apparent. She has a peripheral IV access. No Stewart catheter. An NG tube for nutrition. EYES: Ocular movements are conjugate. Sclerae white. Conjunctivae normal. Pupils are constricted. NECK: No jugular vein distention. LUNGS: With faint crackles at the bases. HEART: S1, S2. Regular rate. No S3 or S4. ABDOMEN: Soft, not distended or tender. No ascites. No bladder distention. MUSCULOSKELETAL: She has osteoarthrosis, but no evidence of inflammatory changes in joints. No edema. Pulses 1+ in dorsalis pedis. Plantar responses are flexor. LABORATORY DATA: White cell count is down to 11.4, hemoglobin 8.3, platelets are 67. Creatinine 4.46. Liver profile with AST 35. The last bilirubin 0.3, AST was 45 on the , ALT 24, alkaline phosphatase 71. Her urinalysis repeated on the with 11 to 20 wbc's. The patient had an abdomen x-ray from June 15. I think this was for checking the position of the NG tube basically. ASSESSMENT: 1. Type 2 diabetes. 2. End-stage renal disease, on hemodialysis with an AV fistula. 3. Chronic obstructive pulmonary disease. 4. Coronary artery disease. 5. SARS-CoV-2 infection with pneumonia, moderate to severe, requiring high-flow nasal cannula O2/BiPAP for a while, but now remarkable improvement. 6. Neutrophilia of unclear etiology, most likely related to demargination and plus some element of increased adrenergic activity due to the COVID 19 hypoxemia and requirement for BiPAP plus the corticosteroids. There is no evidence of bacterial pneumonia or an intraabdominal inflammatory process or urinary tract infection or bone or joint inflammatory process. She has Clostridium difficile antigen positive. The PCR for toxin was negative, therefore this represents colonization, not true Clostridium difficile colitis. At this point, I would discontinue all the antimicrobials including oral vancomycin and monitor without antibacterial treatment. Job ID: [id number] [facility]
[2020-06-18] MEDS: Mometasone 200 MCG/Formoterol 5 MCG 120 PUFF INHALER INH SCH ×2 (07:38→19:58)
[2020-06-18] MEDS: Sevelamer Carbonate 800 MG TAB PO SCH ×5 (08:00→18:33)
[2020-06-18] MEDS: predniSONE 20 MG TAB PO SCH (08:41)
[2020-06-18] MEDS: Atorvastatin Calcium 40 MG TAB PO SCH (08:41)
[2020-06-18] MEDS: Aspirin Chewable 81 MG TAB PO SCH ×2 (08:41→14:56)
[2020-06-18] MEDS: Calcitriol 0.25 MCG CAP PO SCH (08:41)
[2020-06-18] MEDS: Heparin 5,000 UNITS/ML VIAL SC SCH ×3 (08:44→20:55)
[2020-06-18] MEDS: Midodrine HCl 5 MG TAB PO SCH ×4 (09:00→20:56)
[2020-06-18 09:29] LABS: #Lymphocytes 1.6 thou/uL (1.20-3.40); #Monocytes 1.2 thou/uL (0.11-0.59); #Neutrophils 7.3 thou/uL (1.40-6.50); %Eosinophils 0.3 % (0.0-10.0); %Lymphocytes 16.2 % (21.0-51.0); %Monocytes 11.8 % (0.0-10.0); %Neutrophils 71.7 % (42.0-75.0); Hemoglobin 8.2 g/dL (12.0-16.0); Mean Corpuscular HGB CONC 32.4 g/dL (32.0-36.0); Mean Corpuscular Hemoglobin 32.2 pg (27.0-31.0); Mean Corpuscular Volume 99.3 fL (78.0-98.0); Mean Platelet Volume 9.8 fL (7.4-10.4); Platelet Count 181 thou/uL (130-400); RBC Distribution Width 15.3 % (11.5-14.5); Red Blood Cell (RBC) Count 2.55 mill/uL (4.20-5.40); White Blood Cell (WBC) Count 10.2 thou/uL (4.8-10.8)
--- NOTE | 2020-06-18 09:50 | PDOC.HOSPP ---
- Subjective Encounter Date: 06/18/20 Subjective: Patient denies any problems or complaints. When asked she says she has already been to dialysis today although the transporter is actually here now to get her. - Objective Vital Signs & Weight: Vital Signs (12 hours) Temp Pulse Resp BP Pulse Ox 06/18/20 07:58 98.3 F 65 18 118/80 96 06/18/20 03:16 98.2 F 82 20 151/60 H 95 06/18/20 00:25 98.1 F 77 18 98 Weight Admit Weight 233 lb 3.984 oz Weight 231 lb 9.149 oz Most Recent Monitor Data Heart Rate from ECG 74 NIBP 104/43 NIBP BP-Mean 63 Respiration from ECG 12 SpO2 87 I&O: 06/17/20 06/18/20 06/19/20 06:59 06:59 06:59 Intake Total 2407 2442 Output Total 0 0 Balance 2407 2442 Result Diagrams: 06/18/20 09:21 06/17/20 04:56 Additional Labs: Accuchecks 06/18/20 06/17/20 06/17/20 05:01 20:59 16:07 POC Glucose 122 H 220 H 206 H 06/17/20 06/17/20 06/15/20 11:46 05:30 17:13 POC Glucose 87 103 H 56 L* 06/15/20 16:32 POC Glucose 44 L* Hospitalist ROS - Medication Medications: Active Medications Generic Name Dose Route Start Last Admin Trade Name Freq PRN Reason Stop Dose Admin Acetaminophen 1,000 mg 05/25/20 19:15 05/29/20 08:48 Acetaminophen 500 Mg Tab PO 1,000 mg Q6H PRN Administration Mild Pain (1-3) Aspirin 81 mg 05/26/20 09:00 06/17/20 09:01 Aspirin Chewable 81 Mg Tab PO 81 mg DAILY REJI Administration Atorvastatin Calcium 80 mg 05/26/20 09:00 06/18/20 08:41 Atorvastatin Calcium 40 Mg Tab PO 80 mg DAILY REJI Administration Benzonatate 100 mg 05/25/20 19:15 06/01/20 20:20 Benzonatate 100 Mg Cap PO 100 mg Q6H PRN Administration Cough Calcitriol 0.25 mcg 06/09/20 09:00 06/18/20 08:41 Calcitriol 0.25 Mcg Cap PO 0.25 mcg DAILY REJI Administration Dextrose/Water 25 gm 05/25/20 19:15 06/15/20 16:38 Dextrose 50% Abboject 50 Ml Syringe SLOW IVP 25 gm PRN PRN Administration Hypoglycemia Epoetin Lee-epbx 7,500 unit 06/16/20 12:00 06/16/20 12:46 Epoetin Lee-Epbx (Esrd) 4,000 Unit/Ml Vial SC 7,500 unit Q7D REJI Administration Famotidine 20 mg 05/26/20 21:00 06/17/20 20:58 Famotidine 20 Mg Tab PO 20 mg HS REIJ Administration Guaifenesin 200 mg 05/25/20 19:15 06/01/20 00:52 Diabetic Tussin 200 Mg/10 Ml Udcup PO 200 mg Q4H PRN Administration Cough Heparin Sodium (Porcine) 5,000 units 06/08/20 15:00 06/18/20 08:44 Heparin 5,000 Units/Ml Vial SC Not Given TID REJI Ibuprofen 400 mg 05/25/20 19:15 05/28/20 14:48 Ibuprofen 200 Mg Tab PO 400 mg Q4H PRN Administration Fever > 101 Insulin Human Lispro 0 units 05/25/20 19:15 06/17/20 21:01 Humalog 300 Units/3 Ml Vial SC 2 unit .BEDTIME SLIDING SC PRN Administration Bedtime Correctional Scale Insulin Human Lispro 0 units 06/03/20 13:37 06/14/20 12:09 Humalog 300 Units/3 Ml Vial SC 3 unit .AGGRESSIVE SLIDING PRN Administration Aggressive Correctional Scale Midodrine 5 mg 06/15/20 21:00 06/17/20 21:00 Midodrine Hcl 5 Mg Tab PO 5 mg TID REJI Administration Mometasone Furoate/Formoterol Fumar 2 puff 06/04/20 18:30 06/18/20 07:38 Mometasone 200 Mcg/Formoterol 5 Mcg 120 Puff Inhaler INH 2 puff BID-RT REJI Administration Prednisone 20 mg 06/15/20 08:00 06/18/20 08:41 Prednisone 20 Mg Tab PO 20 mg QAM-WM REJI Administration Sevelamer Carbonate 800 mg 06/15/20 08:00 06/17/20 16:09 Sevelamer Carbonate 800 Mg Tab PO 800 mg TID-WM REJI Administration Sodium Chloride 10 ml 06/01/20 09:00 06/17/20 21:02 Flush - Normal Saline 10 Ml Syringe IVF 10 ml Q12HR REJI Administration - Exam General Appearance: NAD, awake alert General - other findings: Confused Heart: RRR, no gallops, no rubs, II/IV Respiratory: CTAB, no wheezes, no rales, no ronchi Gastrointestinal: soft, non-tender, non-distended, normal bowel sounds, no palpable masses Extremities: no cyanosis, no clubbing, no edema Skin: normal turgor Musculoskeletal: generalized weakness Psychiatric: not oriented Hosp A/P (1) Acute hypoxemic respiratory failure Code(s): J96.01 - ACUTE RESPIRATORY FAILURE WITH HYPOXIA Status: Acute (2) Pneumonia due to COVID-19 virus Code(s): U07.1 - COVID-19; J12.89 - OTHER VIRAL PNEUMONIA Status: Acute (3) Atrial fibrillation Code(s): I48.91 - UNSPECIFIED ATRIAL FIBRILLATION Status: Chronic (4) ESRD (end stage renal disease) on dialysis Code(s): N18.6 - END STAGE RENAL DISEASE; Z99.2 - DEPENDENCE ON RENAL DIALYSIS Status: Acute (5) DM type 2 (diabetes mellitus, type 2) Status: Chronic Qualifiers: Diabetes mellitus terminal superintendent insulin use: with terminal superintendent use Diabetes mellitus complication status: with kidney complications Diabetes mellitus complication detail: with chronic kidney disease Chronic kidney disease stage: stage 4 (severe) Qualified Code(s): E11.22 - Type 2 diabetes mellitus with diabetic chronic kidney disease; N18.4 - Chronic kidney disease, stage 4 (severe); Z79.4 - terminal superintendent (current) use of insulin (6) Hypertension Code(s): I10 - ESSENTIAL (PRIMARY) HYPERTENSION Status: Chronic Qualifiers: Hypertension type: essential hypertension Qualified Code(s): I10 - Essential (primary) hypertension (7) Hypocalcemia Code(s): E83.51 - HYPOCALCEMIA Status: Acute (8) Physical deconditioning Code(s): R53.81 - OTHER MALAISE Status: Acute (9) Myoclonus Code(s): G25.3 - MYOCLONUS Status: Acute (10) Anorexia Code(s): R63.0 - ANOREXIA Status: Acute (11) Poor appetite Code(s): R63.0 - ANOREXIA Status: Acute (12) Acute metabolic encephalopathy Code(s): G93.41 - METABOLIC ENCEPHALOPATHY Status: Acute (13) Morbid obesity Code(s): E66.01 - MORBID (SEVERE) OBESITY DUE TO EXCESS CALORIES Status: Chronic (14) Pulmonary hypertension Code(s): I27.2 - OTHER SECONDARY PULMONARY HYPERTENSION * DO NOT USE * Status: Chronic (15) History of nephrectomy, unilateral Code(s): Z90.5 - ACQUIRED ABSENCE OF KIDNEY Status: Chronic (16) BRIANDA (obstructive sleep apnea) Code(s): G47.33 - OBSTRUCTIVE SLEEP APNEA (ADULT) (PEDIATRIC) Status: Chronic (17) Moderate mitral regurgitation Code(s): I34.0 - NONRHEUMATIC MITRAL (VALVE) INSUFFICIENCY Status: Chronic (18) Severe tricuspid regurgitation Code(s): I07.1 - RHEUMATIC TRICUSPID INSUFFICIENCY Status: Chronic (19) Hypoglycemia Code(s): E16.2 - HYPOGLYCEMIA, UNSPECIFIED Status: Acute (20) Thrombocytopenia Code(s): D69.6 - THROMBOCYTOPENIA, UNSPECIFIED Status: Acute - Plan Acute hypoxic respiratory failure: Secondary to Covid 19 pneumonia. This time the patient continues to require 3 L of nasal cannula oxygen. Covid 19 pneumonia: Patient was originally treated with a course of Decadron. That has been discontinued. Acute metabolic encephalopathy: Likely related to the acute illness with the Covid infection. Before yesterday my last evaluation of the patient was on 05/31/2020. At that time she was much more awake alert and conversant. She is apparently gotten much worse and now getting better. Still not fully oriented and still somewhat confused. Possible bacterial pneumonia: Patient had significant elevation of her white count but this was likely due to steroids. Chest x-ray on 06/12 showed subtle increase in diffuse infiltrates. In light of this she was started on broad-spectrum antibiotics and subsequently antifungal's. Unclear that the patient has significant bacterial infection. Much of this is likely simply related to her prior Covid infection. Appreciate IDs recommendations. Antibiotics discontinued. Diabetes mellitus: Severe hyperglycemia secondary to Decadron. Generally well controlled. Appears to be primarily on aggressive sliding scale. She has not had a significant amount of p.o. intake other than NG tube feeds. We will continue to monitor as the changes. Avoiding any long-acting insulin at this time due to hypoglycemia that occurred on 06/15/2020. Atrial fibrillation: Rate controlled. She was originally on oral Eliquis. She is currently on low-dose heparin. We will need to consider long-term anticoagulation options at the time of discharge. End-stage renal disease: Continue to follow with nephrology and dialysis as scheduled. Hypocalcemia: Corrected calcium is normal. Hypertension: Adequate control. Continue current medications. Myoclonus: Suspect benign and likely related to steroids. Neurology consult appreciated. Poor appetite: Patient has had an NG tube. She has been getting tube feeds. She is currently very much awake and alert and ready to have rescreening for her swallow. Hopefully we can get her eating and get the NG tube out soon but she is limited by significant dysphagia. Dysphagia: Patient continues to have some difficulty with dysphagia. In discussing with speech therapist it appears that this is largely due to her generalized motor weakness from the initial infection in long standing recovery. Getting reassessed by speech daily. If she does not have improvement the next few days will need to consider PEG tube placement. Diarrhea: Patient was positive for C. difficile antigen but her toxigenic C. difficile by PCR was negative. Diarrhea was likely from her tube feeds. Diarrhea appears to have stopped. Appreciate ID input. Vancomycin discontinued as the patient appears to be more colonized and infected. Hypoglycemia: Episodes of hypoglycemia on 06/15/2020. Subsequently resolved. Continue with sliding scale coverage. Thrombocytopenia: Previously had some episodes of thrombocytopenia. On 06/17/2020 her platelet count was low but was back in range by 06/18/2020. Suspect this was the result of some platelet clumping. Deconditioning: Multifactorial. Will need rehab at discharge.
--- NOTE | 2020-06-18 12:14 | PRG ---
DATE OF SERVICE: 06/18/2020 SUBJECTIVE: This morning, she is being dialyzed. OBJECTIVE: VITAL SIGNS: Temperature is 98, pulse 65, respiratory rate is 18, sats 96% on 3 L, blood pressure 118/80 . GENERAL: She is deconditioned, but no shortness of breath. CHEST: No wheezing, no crackles. CARDIAC: Normal S1, normal S2. LABORATORY DATA: White count has decreased to 10,000 from a high of 32,000. All antibiotics have been discontinued. She apparently has C diff. It is true that her x-ray is much improved. ASSESSMENT AND PLAN: Baptiste positive pneumonia, respiratory failure, renal failure, Clostridium difficile. I agree with present management. Discontinue all antibiotics. Pulmonary is going to sign off. Call if needed. Job ID: [id number]
--- NOTE | 2020-06-18 12:19 | PRG ---
DATE OF SERVICE: 06/18/2020 SUBJECTIVE: Ms. Lehman is a 75-year-old white female being with ESRD and being followed up by the [facility] Service for management of her ESRD. She is currently undergoing hemodialysis. She is tolerating said treatment. She was initially admitted for COVID-19 pneumonia and from a pulmonary point of view, she is much improved. She is tolerating her current dialysis regimen. From a pulmonary point of view, she is much improved from the COVID-19 pneumonia. No other complaints today. No chest pain or shortness of breath. OBJECTIVE: VITAL SIGNS: Blood pressure 118/80, heart rate 65, respiratory rate 18, temperature 98.3, O2 saturation 96%. GENERAL: The patient is awake, alert, comfortable, not in overt distress. SKIN: Adequate turgor. HEENT: She has slightly pale conjunctivae. Anicteric sclerae. No neck mass. No carotid bruits. No JVD. CHEST: No deformities. LUNGS: Clear. Decreased breath sounds. No wheezing. No crackles. HEART: Normal sinus rhythm. No murmurs, gallops, or rubs. ABDOMEN: Globular, soft, nontender. No masses. EXTREMITIES: No edema. No deformities. MEDICATIONS: Of June 18, 2020, were reviewed. LABORATORY DATA: Of June 18, 2020, white count 10.2, hemoglobin 8.2. June 17, 2020, sodium 136, potassium 4.1, chloride 99, carbon dioxide 23, BUN 61, creatinine 5.26, calcium 7.4. ASSESSMENT AND PLAN: 1. End-stage renal disease, stable. We will continue current hemodialysis regimen. Fluid removal only as tolerated by the patient. She is tolerating said treatment. Continue Thursday, Thursday, and Thursday dialysis. 2. Anemia. Currently on weekly Epogen regimen. 3. COVID-19 pneumonia, clinically improving. The patient has been on steroids. In addition, the patient is being covered with antibiotics and antifungal previously, but currently is placed on hold. 4. Recheck basic metabolics and CBC in a.m. Job ID: [id number]
[2020-06-18 13:24] VITALS: BMI 37.3
[2020-06-18] MEDS: HumaLOG 300 UNITS/3 ML VIAL SC PRN (18:06)
[2020-06-18] MEDS: Sodium Chloride 0.9% 1,000 ML IV SCH (18:45)
[2020-06-18] MEDS: Famotidine 20 MG TAB PO SCH (20:56)
[2020-06-19] MEDS: Mometasone 200 MCG/Formoterol 5 MCG 120 PUFF INHALER INH SCH ×2 (07:39→19:24)
[2020-06-19 07:43] LABS: #Eosinphils 0.1 thou/uL (0.0-0.7); #Lymphocytes 1.5 thou/uL (1.20-3.40); #Monocytes 1.1 thou/uL (0.11-0.59); #Neutrophils 6.7 thou/uL (1.40-6.50); %Basophils 0.1 % (0.0-1.0); %Eosinophils 0.6 % (0.0-10.0); %Lymphocytes 15.5 % (21.0-51.0); %Monocytes 11.6 % (0.0-10.0); %Neutrophils 72.1 % (42.0-75.0); Hemoglobin 8.3 g/dL (12.0-16.0); Mean Corpuscular HGB CONC 32.3 g/dL (32.0-36.0); Mean Corpuscular Hemoglobin 32.5 pg (27.0-31.0); Mean Platelet Volume 9.9 fL (7.4-10.4); Platelet Count 193 thou/uL (130-400); RBC Distribution Width 15.4 % (11.5-14.5); Red Blood Cell (RBC) Count 2.54 mill/uL (4.20-5.40); White Blood Cell (WBC) Count 9.4 thou/uL (4.8-10.8)
[2020-06-19 07:58] LABS: Anion Gap 14 mmol/L (10-20); BUN (Urea Nitrogen) 47 mg/dL (9.8-20.1); Calc. Creatinine Clearance 18 mL/min (70-130); Calcium 7.8 mg/dL (7.8-10.44); Carbon Dioxide 28 mmol/L (23-31); Chloride 99 mmol/L (98-107); Glucose 114 mg/dL (83-110); Potassium 4.2 mmol/L (3.5-5.1); Sodium 137 mmol/L (136-145)
[2020-06-19] MEDS: Calcitriol 0.25 MCG CAP PO SCH (08:56)
[2020-06-19] MEDS: Atorvastatin Calcium 40 MG TAB PO SCH (08:56)
[2020-06-19] MEDS: Sevelamer Carbonate 800 MG TAB PO SCH ×3 (08:57→18:22)
[2020-06-19] MEDS: Midodrine HCl 5 MG TAB PO SCH ×3 (08:57→20:56)
[2020-06-19] MEDS: Aspirin Chewable 81 MG TAB PO SCH (08:57)
[2020-06-19] MEDS: predniSONE 20 MG TAB PO SCH (08:59)
--- NOTE | 2020-06-19 09:20 | PRG ---
DATE OF SERVICE: 06/19/2020 SUBJECTIVE: Ms. Lehman is a 75-year-old white female with ESRD and was admitted for COVID-19 pneumonia. She had respiratory status worsened where she had to be placed on BiPAP. However, in the last several days, pulmonary function improved. She is off BiPAP. She voices no new complaints today. She underwent hemodialysis yesterday without any difficulty. Please note that she shortened her dialysis treatment to 3 hours. OBJECTIVE: VITAL SIGNS: Blood pressure is 129/57, heart rate 82, respiratory rate 17, temperature 97.6, O2 saturation 98%. GENERAL: The patient is awake, alert, comfortable, not in overt distress. SKIN: Adequate turgor. HEENT: Slightly pale conjunctivae. Anicteric sclerae. No neck mass. No carotid bruits. No JVD. CHEST: No deformities. LUNGS: Decreased breath sounds. HEART: Normal sinus rhythm. No murmurs, gallops, or rubs. ABDOMEN: Globular. Soft. Nontender. No masses. EXTREMITIES: No edema. No deformities. MEDICATIONS: June 19, 2020, reviewed. LABORATORY DATA: June 19, 2020; white count 9.4, hemoglobin 8.3. Sodium 137, potassium 4.2, chloride 99, carbon dioxide 28, BUN 47, creatinine 4.6, glucose 114, calcium 7.8. ASSESSMENT AND PLAN: 1. End-stage renal disease, stable, tolerating current hemodialysis regimen. We will continue current Thursday, Thursday, and Thursday hemodialysis. Fluid removal as tolerated. 2. Anemia. Continue weekly Epogen regimen. 3. COVID-19 pneumonia, stabilizing and slowly improving. 4. I agree with current management. We will recheck CBC, basic metabolic panel in the a.m. Job ID: [id number]
--- NOTE | 2020-06-19 09:58 | PDOC.HOSPP ---
- Subjective Encounter Date: 06/19/20 Subjective: Patient is awake and alert today. Says she feels well. She denies any complaints or needs. - Objective Vital Signs & Weight: Vital Signs (12 hours) Temp Pulse Resp BP BP Pulse Ox 06/19/20 07:42 97.6 F 82 17 129/57 L 98 06/19/20 05:45 97.7 F 78 18 143/54 H 93 L 06/19/20 00:00 98.5 F 84 18 111/53 L 95 Weight Admit Weight 233 lb 3.984 oz Weight 231 lb 9.149 oz Most Recent Monitor Data Heart Rate from ECG 74 NIBP 104/43 NIBP BP-Mean 63 Respiration from ECG 12 SpO2 87 I&O: 06/18/20 06/19/20 06/20/20 06:59 06:59 06:59 Intake Total 2442 387 Output Total 0 Balance 2442 387 Result Diagrams: 06/19/20 07:21 06/19/20 07:21 Additional Labs: Accuchecks 06/19/20 06/18/20 06/18/20 04:49 20:17 16:52 POC Glucose 109 H 178 H 251 H 06/18/20 11:03 POC Glucose 112 H Hospitalist ROS - Medication Medications: Active Medications Generic Name Dose Route Start Last Admin Trade Name Freq PRN Reason Stop Dose Admin Acetaminophen 1,000 mg 05/25/20 19:15 05/29/20 08:48 Acetaminophen 500 Mg Tab PO 1,000 mg Q6H PRN Administration Mild Pain (1-3) Aspirin 81 mg 05/26/20 09:00 06/19/20 08:57 Aspirin Chewable 81 Mg Tab PO 81 mg DAILY REJI Administration Atorvastatin Calcium 80 mg 05/26/20 09:00 06/19/20 08:56 Atorvastatin Calcium 40 Mg Tab PO 80 mg DAILY REJI Administration Benzonatate 100 mg 05/25/20 19:15 06/01/20 20:20 Benzonatate 100 Mg Cap PO 100 mg Q6H PRN Administration Cough Calcitriol 0.25 mcg 06/09/20 09:00 06/19/20 08:56 Calcitriol 0.25 Mcg Cap PO 0.25 mcg DAILY REJI Administration Dextrose/Water 25 gm 05/25/20 19:15 06/15/20 16:38 Dextrose 50% Abboject 50 Ml Syringe SLOW IVP 25 gm PRN PRN Administration Hypoglycemia Epoetin Lee-epbx 7,500 unit 06/16/20 12:00 06/16/20 12:46 Epoetin Lee-Epbx (Esrd) 4,000 Unit/Ml Vial SC 7,500 unit Q7D REJI Administration Famotidine 20 mg 05/26/20 21:00 06/18/20 20:56 Famotidine 20 Mg Tab PO Not Given HS REJI Guaifenesin 200 mg 05/25/20 19:15 06/01/20 00:52 Diabetic Tussin 200 Mg/10 Ml Udcup PO 200 mg Q4H PRN Administration Cough Heparin Sodium (Porcine) 5,000 units 06/08/20 15:00 06/18/20 20:55 Heparin 5,000 Units/Ml Vial SC 5,000 units TID REJI Administration Sodium Chloride 1,000 mls @ 30 mls/hr 06/18/20 18:45 06/18/20 18:45 Normal Saline 0.9% IV 1,000 mls .Q24H REJI Administration Ibuprofen 400 mg 05/25/20 19:15 05/28/20 14:48 Ibuprofen 200 Mg Tab PO 400 mg Q4H PRN Administration Fever > 101 Insulin Human Lispro 0 units 05/25/20 19:15 06/17/20 21:01 Humalog 300 Units/3 Ml Vial SC 2 unit .BEDTIME SLIDING SC PRN Administration Bedtime Correctional Scale Insulin Human Lispro 0 units 06/03/20 13:37 06/18/20 18:06 Humalog 300 Units/3 Ml Vial SC 9 unit .AGGRESSIVE SLIDING PRN Administration Aggressive Correctional Scale Midodrine 5 mg 06/15/20 21:00 06/19/20 08:57 Midodrine Hcl 5 Mg Tab PO 5 mg TID REJI Administration Mometasone Furoate/Formoterol Fumar 2 puff 06/04/20 18:30 06/19/20 07:39 Mometasone 200 Mcg/Formoterol 5 Mcg 120 Puff Inhaler INH 2 puff BID-RT REJI Administration Prednisone 20 mg 06/15/20 08:00 06/19/20 08:59 Prednisone 20 Mg Tab PO 20 mg QAM-WM REJI Administration Sevelamer Carbonate 800 mg 06/15/20 08:00 01/12/21 08:57 Sevelamer Carbonate 800 Mg Tab PO Not Given TID-WM REJI Sodium Chloride 10 ml 06/01/20 09:00 06/19/20 08:56 Flush - Normal Saline 10 Ml Syringe IVF 10 ml Q12HR REJI Administration - Exam General Appearance: NAD, awake alert General - other findings: Morbidly obese. Heart: no murmur, no gallops, no rubs, normal peripheral pulses, irregular Respiratory: no wheezes, no ronchi, normal chest expansion, rales (Minimal, scattered) Gastrointestinal: soft, non-tender, non-distended, normal bowel sounds Extremities: no cyanosis, no clubbing, no edema Skin: normal turgor Neurological: no focal deficits Musculoskeletal: generalized weakness Psychiatric: normal affect, normal behavior, not oriented (Patient knew her name but indicated that she was in a rehab and the month was February.) Hosp A/P (1) Acute hypoxemic respiratory failure Code(s): J96.01 - ACUTE RESPIRATORY FAILURE WITH HYPOXIA Status: Acute (2) Pneumonia due to COVID-19 virus Code(s): U07.1 - COVID-19; J12.89 - OTHER VIRAL PNEUMONIA Status: Acute (3) Atrial fibrillation Code(s): I48.91 - UNSPECIFIED ATRIAL FIBRILLATION Status: Chronic (4) ESRD (end stage renal disease) on dialysis Code(s): N18.6 - END STAGE RENAL DISEASE; Z99.2 - DEPENDENCE ON RENAL DIALYSIS Status: Acute (5) DM type 2 (diabetes mellitus, type 2) Status: Chronic Qualifiers: 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 mellitus 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 harvesting supervisor insulin use: with watermelon harvesting supervisor use Diabetes mellitus complication status: with kidney complications Diabetes mellitus complication detail: with chronic kidney disease Chronic kidney disease stage: stage 4 (severe) Qualified Code(s): E11.22 - Type 2 diabetes mellitus with diabetic chronic kidney disease; N18.4 - Chronic kidney disease, stage 4 (severe); Z79.4 - salvage determiner (current) use of insulin (6) Hypertension Code(s): I10 - ESSENTIAL (PRIMARY) HYPERTENSION Status: Chronic Qualifiers: Hypertension type: essential hypertension Qualified Code(s): I10 - E ssential (primary) hypertension (7) Hypocalcemia Code(s): E83.51 - HYPOCALCEMIA Status: Acute (8) Physical deconditioning Code(s): R53.81 - OTHER MALAISE Status: Acute (9) Myoclonus Code(s): G25.3 - MYOCLONUS Status: Acute (10) Anorexia Code(s): R63.0 - ANOREXIA Status: Acute (11) Poor appetite Code(s): R63.0 - ANOREXIA Status: Acute (12) Acute metabolic encephalopathy Code(s): G93.41 - METABOLIC ENCEPHALOPATHY Status: Acute (13) Morbid obesity Code(s): E66.01 - MORBID (SEVERE) OBESITY DUE TO EXCESS CALORIES Status: Chronic (14) Pulmonary hypertension Code(s): I27.2 - OTHER SECONDARY PULMONARY HYPERTENSION * DO NOT USE * Status: Chronic (15) History of nephrectomy, unilateral Code(s): Z90.5 - ACQUIRED ABSENCE OF KIDNEY Status: Chronic (16) BRIANDA (obstructive sleep apnea) Code(s): G47.33 - OBSTRUCTIVE SLEEP APNEA (ADULT) (PEDIATRIC) Status: Chronic (17) Moderate mitral regurgitation Code(s): I34.0 - NONRHEUMATIC MITRAL (VALVE) INSUFFICIENCY Status: Chronic (18) Severe tricuspid regurgitation Code(s): I07.1 - RHEUMATIC TRICUSPID INSUFFICIENCY Status: Chronic (19) Hypoglycemia Code(s): E16.2 - HYPOGLYCEMIA, UNSPECIFIED Status: Acute (20) Thrombocytopenia Code(s): D69.6 - THROMBOCYTOPENIA, UNSPECIFIED Status: Acute - Plan Acute hypoxic respiratory failure: Secondary to Covid 19 pneumonia. This time the patient continues to require 3 L of nasal cannula oxygen. Covid 19 pneumonia: Patient was originally treated with a course of Decadron. That has been discontinued. Currently on no active medicines specific to Covid. Acute metabolic encephalopathy: Likely related to the acute illness with the Covid infection. Before yesterday my last evaluation of the patient was on 05/31/2020. At that time she was much more awake alert and conversant. She is apparently gotten much worse and now getting better. Still not fully oriented and still somewhat confused. Met with her son on 06/18/2020. He was impressed by how much better she was. Possible bacterial pneumonia: Patient had significant elevation of her white count but this was likely due to steroids. Chest x-ray on 06/12 showed subtle increase in diffuse infiltrates. In light of this she was started on broad-spectrum antibiotics and subsequently antifungal's. Unclear that the patient has significant bacterial infection. Much of this is likely simply related to her prior Covid infection. Appreciate IDs recommendations. Antibiotics discontinued. Diabetes mellitus: Severe hyperglycemia secondary to Decadron. Generally well controlled. Appears to be primarily on aggressive sliding scale. She has not had a significant amount of p.o. intake other than NG tube feeds. We will continue to monitor as the changes. Avoiding any long-acting insulin at this time due to hypoglycemia that occurred on 06/15/2020. Atrial fibrillation: Rate controlled. She was originally on oral Eliquis. She is currently on low-dose heparin. Apparently Dr. Domingo discontinued the Eliquis on June 08 and started the heparin. If she is able to take p.o.'s today as hoped, we will need to reinitiate Eliquis as she remains in chronic A. fib. End-stage renal disease: Continue to follow with nephrology and dialysis as scheduled. Hypocalcemia: Corrected calcium is normal. Hypertension: Adequate control. Continue current medications. Myoclonus: Suspect benign and likely related to steroids. Neurology consult appreciated. Fully resolved Poor appetite: Patient has had an NG tube. She has been getting tube feeds. She has had very poor appetite and generally not overly interested in pursuing swallowing. On 06/19/2020 the patient was able to take some p.o.'s. We will monitor her nutritional intake. Dysphagia: Patient continues to have some difficulty with dysphagia. In discussing with speech therapist it appears that this is largely due to her generalized motor weakness from the initial infection in long standing recovery. Getting reassessed by speech daily. On 06/18/2020 I spoke with the patient's son at length. He was understanding and willing to pursue a PEG tube temporarily as the patient continued to improve if that was indicated. On the evening of 06/18/2020 the patient removed her NG tube. She was reevaluated on 06/19/2020 and appeared to have some improvement and was cleared to have some pured p.o. with nectar thick liquids. We will monitor her swallow and calorie intake. Hope to transition medications to p.o. if she can adequately swallow. Diarrhea: Patient was positive for C. difficile antigen but her toxigenic C. difficile by PCR was negative. Diarrhea was likely from her tube feeds. Diarrhea appears to have stopped. Appreciate ID input. Vancomycin discontinued as the patient appears to be more colonized and infected. Continue isolation. Hypoglycemia: Episodes of hypoglycemia on 06/15/2020. Subsequently resolved. Continue with sliding scale coverage. Thrombocytopenia: Previously had some episodes of thrombocytopenia. On 06/17/2020 her platelet count was low but was back in range by 06/18/2020. Suspect this was the result of some platelet clumping. Continuing aspirin and anticoagulation. Deconditioning: Multifactorial. Will need rehab at discharge.
[2020-06-19] MEDS: Heparin 5,000 UNITS/ML VIAL SC SCH ×3 (10:05→20:56)
[2020-06-19] MEDS: Sodium Chloride 0.9% 1,000 ML IV SCH (18:22)
[2020-06-19] MEDS: Famotidine 20 MG TAB PO SCH (20:56)
[2020-06-20 06:20] LABS: #Basophils 0.1 thou/uL (0.0-0.2); #Lymphocytes 1.3 thou/uL (1.20-3.40); #Monocytes 0.9 thou/uL (0.11-0.59); #Neutrophils 5.1 thou/uL (1.40-6.50); %Basophils 1.4 % (0.0-1.0); %Eosinophils 0.2 % (0.0-10.0); %Lymphocytes 17.7 % (21.0-51.0); %Monocytes 11.8 % (0.0-10.0); %Neutrophils 68.8 % (42.0-75.0); Hemoglobin 7.8 g/dL (12.0-16.0); Mean Corpuscular HGB CONC 32.4 g/dL (32.0-36.0); Mean Platelet Volume 10.3 fL (7.4-10.4); Platelet Count 165 thou/uL (130-400); RBC Distribution Width 15.2 % (11.5-14.5); Red Blood Cell (RBC) Count 2.36 mill/uL (4.20-5.40); White Blood Cell (WBC) Count 7.4 thou/uL (4.8-10.8)
[2020-06-20 06:43] LABS: Anion Gap 19 mmol/L (10-20); BUN (Urea Nitrogen) 68 mg/dL (9.8-20.1); Calc. Creatinine Clearance 14 mL/min (70-130); Calcium 7.6 mg/dL (7.8-10.44); Carbon Dioxide 25 mmol/L (23-31); Chloride 100 mmol/L (98-107); Glucose 111 mg/dL (83-110); Potassium 4.9 mmol/L (3.5-5.1); Sodium 139 mmol/L (136-145)
[2020-06-20] MEDS: Mometasone 200 MCG/Formoterol 5 MCG 120 PUFF INHALER INH SCH ×2 (08:22→19:13)
--- NOTE | 2020-06-20 09:00 | PRG ---
DATE OF SERVICE: 06/20/2020 SUBJECTIVE: Ms. Lehman is a 75-year-old white female with ESRD and we are following her up for her maintenance hemodialysis. She is currently undergoing dialysis. She has been tolerating her dialysis treatment. She was initially admitted for COVID-19 pneumonia. Her respiratory status is much improved. She was previously on BiPAP and currently off BiPAP. No new complaints today. She has some mild anxiety. OBJECTIVE: VITAL SIGNS: Blood pressure 140/50, heart rate 78, respiratory rate 16, temperature 97.5, and O2 saturation is 95%. GENERAL: The patient is awake, alert, and comfortable, not in overt distress. SKIN: Adequate turgor. HEENT: She has a slightly pale conjunctivae. Anicteric sclerae. NECK: No neck mass. No carotid bruits. No JVD. CHEST: No deformities. LUNGS: Clear breath sounds. No wheezing. No crackles. HEART: Normal sinus rhythm. No murmur. No gallops. No rubs. ABDOMEN: Globular. Soft. Nontender. No masses. EXTREMITIES: No edema. No deformities. MEDICATIONS: Medications of June 20, 2020 was reviewed. LABORATORY DATA: Laboratories of June 20, 2020; white count 7.4 and hemoglobin 7.8. Sodium 139, potassium 4.9, chloride 100, carbon dioxide 25, BUN 68, creatinine 5.67, glucose 111, and calcium 7.6. ASSESSMENT AND PLAN: 1. End-stage renal disease, stable, tolerating current hemodialysis regimen. Fluid removal only as tolerated with the patient. No changes will be made with the current dialysis regimen. 2. Anemia. Continuing weekly Epogen. P.r.n. blood transfusion. 3. COVID-19 pneumonia, slowly improving. Continue supportive care. Recheck CBC and base MET in a.m. Job ID: [id number]
[2020-06-20] MEDS: Sevelamer Carbonate 800 MG TAB PO SCH ×3 (11:58→16:55)
[2020-06-20] MEDS: Heparin 5,000 UNITS/ML VIAL SC SCH (11:58)
[2020-06-20] MEDS: Midodrine HCl 5 MG TAB PO SCH ×3 (11:59→20:46)
[2020-06-20] MEDS: predniSONE 20 MG TAB PO SCH (13:13)
[2020-06-20] MEDS: Aspirin Chewable 81 MG TAB PO SCH (13:13)
[2020-06-20] MEDS: Atorvastatin Calcium 40 MG TAB PO SCH (13:13)
[2020-06-20] MEDS: Calcitriol 0.25 MCG CAP PO SCH (13:13)
--- NOTE | 2020-06-20 17:14 | PDOC.HOSPP ---
- Subjective Encounter Date: 06/20/20 Encounter Time: 09:30 Subjective: Patient seen in follow-up for acute hypoxic respiratory failure. She denies any complaints today. - Objective Vital Signs & Weight: Vital Signs (12 hours) Temp Pulse Resp BP Pulse Ox 06/20/20 12:23 97.5 F L 77 18 117/44 L 96 Weight Admit Weight 233 lb 3.984 oz Weight 231 lb 9.149 oz Most Recent Monitor Data Heart Rate from ECG 74 NIBP 104/43 NIBP BP-Mean 63 Respiration from ECG 12 SpO2 87 I&O: 06/19/20 06/20/20 06/21/20 06:59 06:59 06:59 Intake Total 387 Balance 387 Result Diagrams: 06/20/20 05:40 06/20/20 05:40 Additional Labs: Accuchecks 06/20/20 06/20/20 06/19/20 16:59 10:42 21:00 POC Glucose 106 H 101 H 161 H Labs and MAR reviewed by me EKG Reviewed by me: Yes (Telemetry shows normal sinus rhythm) Hospitalist ROS - Review of Systems Cardiovascular: denies: chest pain, palpitations, orthopnea, paroxysmal noc. dyspnea, edema, light headedness Gastrointestinal: denies: nausea, vomiting, abdominal pain, diarrhea, constipa tion, melena, hematochezia - Medication Medications: Active Medications Generic Name Dose Route Start Last Admin Trade Name Freq PRN Reason Stop Dose Admin Acetaminophen 1,000 mg 05/25/20 19:15 05/29/20 08:48 Acetaminophen 500 Mg Tab PO 1,000 mg Q6H PRN Administration Mild Pain (1-3) Aspirin 81 mg 05/26/20 09:00 06/20/20 13:13 Aspirin Chewable 81 Mg Tab PO 81 mg DAILY REJI Administration Atorvastatin Calcium 80 mg 05/26/20 09:00 06/20/20 13:13 Atorvastatin Calcium 40 Mg Tab PO 80 mg DAILY REJI Administration Benzonatate 100 mg 05/25/20 19:15 06/01/20 20:20 Benzonatate 100 Mg Cap PO 100 mg Q6H PRN Administration Cough Calcitriol 0.25 mcg 06/09/20 09:00 06/20/20 13:13 Calcitriol 0.25 Mcg Cap PO 0.25 mcg DAILY REJI Administration Dextrose/Water 25 gm 05/25/20 19:15 06/15/20 16:38 Dextrose 50% Abboject 50 Ml Syringe SLOW IVP 25 gm PRN PRN Administration Hypoglycemia Epoetin Lee-epbx 7,500 unit 06/16/20 12:00 06/16/20 12:46 Epoetin Lee-Epbx (Esrd) 4,000 Unit/Ml Vial SC 7,500 unit Q7D REJI Administration Famotidine 20 mg 05/26/20 21:00 06/19/20 20:56 Famotidine 20 Mg Tab PO 20 mg HS REJI Administration Guaifenesin 200 mg 05/25/20 19:15 06/01/20 00:52 Diabetic Tussin 200 Mg/10 Ml Udcup PO 200 mg Q4H PRN Administration Cough Sodium Chloride 1,000 mls @ 30 mls/hr 06/18/20 18:45 06/19/20 18:22 Normal Saline 0.9% IV 1,000 mls .Q24H REJI Administration Insulin Human Lispro 0 units 05/25/20 19:15 06/17/20 21:01 Humalog 300 Units/3 Ml Vial SC 2 unit .BEDTIME SLIDING SC PRN Administration Bedtime Correctional Scale Insulin Human Lispro 0 units 06/03/20 13:37 06/18/20 18:06 Humalog 300 Units/3 Ml Vial SC 9 unit .AGGRESSIVE SLIDING PRN Administration Aggressive Correctional Scale Midodrine 5 mg 06/15/20 21:00 06/20/20 16:55 Midodrine Hcl 5 Mg Tab PO 5 mg TID REJI Administration Mometasone Furoate/Formoterol Fumar 2 puff 06/04/20 18:30 06/20/20 08:22 Mometasone 200 Mcg/Formoterol 5 Mcg 120 Puff Inhaler INH Not Given BID-RT REJI Prednisone 20 mg 06/15/20 08:00 06/20/20 13:13 Prednisone 20 Mg Tab PO 20 mg QAM-WM REJI Administration Sevelamer Carbonate 800 mg 06/15/20 08:00 06/20/20 16:55 Sevelamer Carbonate 800 Mg Tab PO 800 mg TID-WM REJI Administration Sodium Chloride 10 ml 06/01/20 09:00 06/20/20 13:14 Flush - Normal Saline 10 Ml Syringe IVF 10 ml Q12HR REJI Administration - Exam General Appearance: awake alert Eye: anicteric sclera ENT: moist mucosa Neck: supple Heart: RRR Respiratory: CTAB Gastrointestinal: soft, non-tender Skin: no rashes Psychiatric: normal affect, normal behavior Hosp A/P - Plan Hosp A/P (1) Acute hypoxemic respiratory failure Code(s): J96.01 - ACUTE RESPIRATORY FAILURE WITH HYPOXIA Status: Acute (2) Pneumonia due to COVID-19 virus Code(s): U07.1 - COVID-19; J12.89 - OTHER VIRAL PNEUMONIA Status: Acute (3) Atrial fibrillation Code(s): I48.91 - UNSPECIFIED ATRIAL FIBRILLATION Status: Chronic (4) ESRD (end stage renal disease) on dialysis Code(s): N18.6 - END STAGE RENAL DISEASE; Z99.2 - DEPENDENCE ON RENAL DIALYSIS Status: Acute (5) DM type 2 (diabetes mellitus, type 2) Status: Chronic Qualifiers: Diabetes mellitus mcfp insulin use: with long term acute care registered nurse use Diabetes mellitus complication status: with kidney complications Diabetes mellitus complication detail: with chronic kidney disease Chronic kidney disease stage: stage 4 (severe) Qualified Code(s): E11.22 - Type 2 diabetes mellitus with diabetic chronic kidney disease; N18.4 - Chronic kidney disease, stage 4 (severe); Z79.4 - longterm (current) use of insulin (6) Hypertension Code(s): I10 - ESSENTIAL (PRIMARY) HYPERTENSION Status: Chronic Qualifiers: Hypertension type: essential hypertension Qualified Code(s): I10 - Essential (primary) hypertension (7) Hypocalcemia Code(s): E83.51 - HYPOCALCEMIA Status: Acute (8) Physical deconditioning Code(s): R53.81 - OTHER MALAISE Status: Acute (9) Myoclonus Code(s): G25.3 - MYOCLONUS Status: Acute (10) Anorexia Code(s): R63.0 - ANOREXIA Status: Acute (11) Poor appetite Code(s): R63.0 - ANOREXIA Status: Acute (12) Acute metabolic encephalopathy Code(s): G93.41 - METABOLIC ENCEPHALOPATHY Status: Acute (13) Morbid obesity Code(s): E66.01 - MORBID (SEVERE) OBESITY DUE TO EXCESS CALORIES Status: Chronic (14) Pulmonary hypertension Code(s): I27.2 - OTHER SECONDARY PULMONARY HYPERTENSION * DO NOT USE * Status: Chronic (15) History of nephrectomy, unilateral Code(s): Z90.5 - ACQUIRED ABSENCE OF KIDNEY Status: Chronic (16) BRIANDA (obstructive sleep apnea) Code(s): G47.33 - OBSTRUCTIVE SLEEP APNEA (ADULT) (PEDIATRIC) Status: Chronic (17) Moderate mitral regurgitation Code(s): I34.0 - NONRHEUMATIC MITRAL (VALVE) INSUFFICIENCY Status: Chronic (18) Severe tricuspid regurgitation Code(s): I07.1 - RHEUMATIC TRICUSPID INSUFFICIENCY Status: Chronic (19) Hypoglycemia Code(s): E16.2 - HYPOGLYCEMIA, UNSPECIFIED Status: Acute (20) Thrombocytopenia Code(s): D69.6 - THROMBOCYTOPENIA, UNSPECIFIED Status: Acute - Plan Patient has clinically improved. Resume apixaban. Patient is on a diet. Likely to rehab in 24 to 48 hours.
[2020-06-20] MEDS: Sodium Chloride 0.9% 1,000 ML IV SCH (17:15)
[2020-06-20] MEDS: Apixaban 2.5 MG TAB PO SCH (20:47)
[2020-06-20] MEDS: Famotidine 20 MG TAB PO SCH (20:47)
[2020-06-21] MEDS: Atorvastatin Calcium 40 MG TAB PO SCH (08:38)
[2020-06-21] MEDS: predniSONE 20 MG TAB PO SCH (08:38)
[2020-06-21] MEDS: Sevelamer Carbonate 800 MG TAB PO SCH ×3 (08:38→16:30)
[2020-06-21] MEDS: Calcitriol 0.25 MCG CAP PO SCH (08:38)
[2020-06-21] MEDS: Apixaban 2.5 MG TAB PO SCH ×2 (08:38→20:32)
[2020-06-21] MEDS: Midodrine HCl 5 MG TAB PO SCH ×3 (08:38→20:32)
[2020-06-21] MEDS: Aspirin Chewable 81 MG TAB PO SCH (08:38)
--- NOTE | 2020-06-21 09:14 | PRG ---
DATE OF SERVICE: 06/21/2020 SUBJECTIVE: Ms. Lehman is a 75-year-old white female with ESRD followed by the Renal Service for maintenance hemodialysis. She was initially admitted for COVID-19 pneumonia. Respiratory status is much improved. She is off BiPAP. She has no new complaints. No chest pain or shortness of breath. OBJECTIVE: VITAL SIGNS: Blood pressure 102/55, heart rate 89, respiratory rate 17, temperature 97.1, and O2 saturation 97% on 2 L. GENERAL: Awake, lethargic, not in overt distress. SKIN: Adequate turgor. HEENT: She has a slightly pale conjunctivae. Anicteric sclerae. NECK: No neck mass. No carotid bruits. No JVD. CHEST: No deformities. LUNGS: Decreased breath sounds. HEART: Normal sinus rhythm. No murmur. No gallops. No rubs. ABDOMEN: Globular, soft, and nontender. No masses. EXTREMITIES: Trace edema. MEDICATIONS: Medications of June 21, 2020, was reviewed. LABORATORY DATA: Laboratories of June 20, 2020, white count 7.4 and hemoglobin 7.8. Sodium 139, potassium 4.9, chloride 100, carbon dioxide 25, BUN 68, creatinine 5.67, glucose 111, and calcium 7.6. ASSESSMENT AND PLAN: 1. End-stage renal disease, stable, tolerating hemodialysis. She underwent hemodialysis yesterday. She requested to shorten her dialysis time yesterday. Fluid removal to be taken only as tolerated. Continue Thursday, Thursday, and Thursday dialysis regimen. 2. COVID-19 pneumonia, slowly recovering. 3. Anemia, continuing weekly Epogen. P.R.N. blood transfusion. Recheck CBC and basic metabolic in a.m. Job ID: [id number] [facility]
[2020-06-21] MEDS: Mometasone 200 MCG/Formoterol 5 MCG 120 PUFF INHALER INH SCH ×2 (10:24→19:13)
[2020-06-21] MEDS: HumaLOG 300 UNITS/3 ML VIAL SC PRN ×2 (12:01→17:20)
--- NOTE | 2020-06-21 17:23 | PDOC.HOSPP ---
- Subjective Encounter Date: 06/21/20 Encounter Time: 09:00 Subjective: Patient seen for follow-up regarding acute respiratory failure. Reports that she feels better today. Denies chest pain, nausea, vomiting. - Objective Vital Signs & Weight: Vital Signs (12 hours) Temp Pulse Resp BP Pulse Ox 06/21/20 16:00 97.6 F 87 17 114/56 L 97 06/21/20 11:43 96.4 F L 82 18 97/51 L 100 06/21/20 07:54 97.1 F L 89 17 102/55 L 97 Weight Admit Weight 233 lb 3.984 oz Weight 231 lb 9.149 oz Most Recent Monitor Data Heart Rate from ECG 74 NIBP 104/43 NIBP BP-Mean 63 Respiration from ECG 12 SpO2 87 Result Diagrams: 06/20/20 05:40 06/20/20 05:40 Additional Labs: Accuchecks 06/21/20 06/21/20 06/21/20 16:52 11:50 05:27 POC Glucose 243 H 183 H 129 H 06/20/20 06/20/20 20:39 06:01 POC Glucose 190 H 112 H I reviewed patient's labs and [facility] Hospitalist ROS - Review of Systems Cardiovascular: denies: chest pain, palpitations, orthopnea, paroxysmal noc. dyspnea, edema, light headedness Skin: denies: rash, lesions, ministerio, bruising - Medication Medications: Active Medications Generic Name Dose Route Start Last Admin Trade Name Freq PRN Reason Stop Dose Admin Acetaminophen 1,000 mg 05/25/20 19:15 05/29/20 08:48 Acetaminophen 500 Mg Tab PO 1,000 mg Q6H PRN Administration Mild Pain (1-3) Apixaban 2.5 mg 06/20/20 21:00 06/21/20 08:38 Apixaban 2.5 Mg Tab PO 2.5 mg BID REJI Administration Aspirin 81 mg 05/26/20 09:00 06/21/20 08:38 Aspirin Chewable 81 Mg Tab PO 81 mg DAILY REJI Administration Atorvastatin Calcium 80 mg 05/26/20 09:00 06/21/20 08:38 Atorvastatin Calcium 40 Mg Tab PO 80 mg DAILY REJI Administration Benzonatate 100 mg 05/25/20 19:15 06/01/20 20:20 Benzonatate 100 Mg Cap PO 100 mg Q6H PRN Administration Cough Calcitriol 0.25 mcg 06/09/20 09:00 06/21/20 08:38 Calcitriol 0.25 Mcg Cap PO 0.25 mcg DAILY REJI Administration Dextrose/Water 25 gm 05/25/20 19:15 06/15/20 16:38 Dextrose 50% Abboject 50 Ml Syringe SLOW IVP 25 gm PRN PRN Administration Hypoglycemia Epoetin Lee-epbx 7,500 unit 06/16/20 12:00 06/16/20 12:46 Epoetin Lee-Epbx (Esrd) 4,000 Unit/Ml Vial SC 7,500 unit Q7D REJI Administration Famotidine 20 mg 05/26/20 21:00 06/20/20 20:47 Famotidine 20 Mg Tab PO 20 mg HS REJI Administration Guaifenesin 200 mg 05/25/20 19:15 06/01/20 00:52 Diabetic Tussin 200 Mg/10 Ml Udcup PO 200 mg Q4H PRN Administration Cough Sodium Chloride 1,000 mls @ 30 mls/hr 06/18/20 18:45 06/20/20 17:15 Normal Saline 0.9% IV 1,000 mls .Q24H REJI Administration Insulin Human Lispro 0 units 05/25/20 19:15 06/17/20 21:01 Humalog 300 Units/3 Ml Vial SC 2 unit .BEDTIME SLIDING SC PRN Administration Bedtime Correctional Scale Insulin Human Lispro 0 units 06/03/20 13:37 06/21/20 12:01 Humalog 300 Units/3 Ml Vial SC 3 unit .AGGRESSIVE SLIDING PRN Administration Aggressive Correctional Scale Midodrine 5 mg 06/15/20 21:00 06/21/20 15:39 Midodrine Hcl 5 Mg Tab PO 5 mg TID REJI Administration Mometasone Furoate/Formoterol Fumar 2 puff 06/04/20 18:30 06/21/20 10:24 Mometasone 200 Mcg/Formoterol 5 Mcg 120 Puff Inhaler INH 2 puff BID-RT REJI Administration Prednisone 20 mg 06/15/20 08:00 06/21/20 08:38 Prednisone 20 Mg Tab PO 20 mg QAM-WM REJI Administration Sevelamer Carbonate 800 mg 06/15/20 08:00 06/21/20 16:30 Sevelamer Carbonate 800 Mg Tab PO 800 mg TID-WM REJI Administration Sodium Chloride 10 ml 06/01/20 09:00 06/21/20 08:38 Flush - Normal Saline 10 Ml Syringe IVF 10 ml Q12HR REJI Administration - Exam General - other findings: Obese ENT: normocephalic atraumatic Neck: symmetric, no thyromegaly Heart: irregular Respiratory: CTAB Gastrointestinal: soft, non-tender Skin: no rashes Psychiatric: normal affect Hosp A/P - Plan Hosp A/P (1) Acute hypoxemic respiratory failure Code(s): J96.01 - ACUTE RESPIRATORY FAILURE WITH HYPOXIA Status: Acute (2) Pneumonia due to COVID-19 virus Code(s): U07.1 - COVID-19; J12.89 - OTHER VIRAL PNEUMONIA Status: Acute (3) Atrial fibrillation Code(s): I48.91 - UNSPECIFIED ATRIAL FIBRILLATION Status: Chronic (4) ESRD (end stage renal disease) on dialysis Code(s): N18.6 - END STAGE RENAL DISEASE; Z99.2 - DEPENDENCE ON RENAL DIALYSIS Status: Acute (5) DM type 2 (diabetes mellitus, type 2) Status: Chronic 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 Diabetes mellitus complication status: with kidney complications Diabetes mellitus complication detail: with chronic kidney disease Chronic kidney disease stage: stage 4 (severe) Qualified Code(s): E11.22 - Type 2 diabetes mellitus with d iabetic chronic kidney disease; N18.4 - Chronic kidney disease, stage 4 (severe); Z79.4 - retirement (current) use of insulin (6) Hypertension Code(s): I10 - ESSENTIAL (PRIMARY) HYPERTENSION Status: Chronic Qualifiers: Hypertension type: essential hypertension Qualified Code(s): I10 - Essential (primary) hypertension (7) Hypocalcemia Code(s): E83.51 - HYPOCALCEMIA Status: Acute (8) Physical deconditioning Code(s): R53.81 - OTHER MALAISE Status: Acute (9) Myoclonus Code(s): G25.3 - MYOCLONUS Status: Acute (10) Anorexia Code(s): R63.0 - ANOREXIA Status: Acute (11) Poor appetite Code(s): R63.0 - ANOREXIA Status: Acute (12) Acute metabolic encephalopathy Code(s): G93.41 - METABOLIC ENCEPHALOPATHY Status: Acute (13) Morbid obesity Code(s): E66.01 - MORBID (SEVERE) OBESITY DUE TO EXCESS CALORIES Status: Chronic (14) Pulmonary hypertension Code(s): I27.2 - OTHER SECONDARY PULMONARY HYPERTENSION * DO NOT USE * Status: Chronic (15) History of nephrectomy, unilateral Code(s): Z90.5 - ACQUIRED ABSENCE OF KIDNEY Status: Chronic (16) BRIANDA (obstructive sleep apnea) Code(s): G47.33 - OBSTRUCTIVE SLEEP APNEA (ADULT) (PEDIATRIC) Status: Chronic (17) Moderate mitral regurgitation Code(s): I34.0 - NONRHEUMATIC MITRAL (VALVE) INSUFFICIENCY Status: Chronic (18) Severe tricuspid regurgitation Code(s): I07.1 - RHEUMATIC TRICUSPID INSUFFICIENCY Status: Chronic (19) Hypoglycemia Code(s): E16.2 - HYPOGLYCEMIA, UNSPECIFIED Status: Acute (20) Thrombocytopenia Code(s): D69.6 - THROMBOCYTOPENIA, UNSPECIFIED Status: Acute - Plan Clinically improved. Continue apixaban for A. fib. Patient is tolerating diet. C. difficile colonization but not infection per ID service. Likely to rehab in 24 to 48 hours when individual bed is available. Dialysis per nephrology service.
[2020-06-21] MEDS: Famotidine 20 MG TAB PO SCH (20:32)
[2020-06-22] MEDS: Sodium Chloride 0.9% 1,000 ML IV SCH (02:44)
--- NOTE | 2020-06-22 08:34 | PRG ---
DATE OF SERVICE: 06/22/2020 SUBJECTIVE: Ms. Lehman is a 75-year-old white female who was admitted initially for COVID-19 pneumonia, status post acute respiratory failure and being followed up for her ESRD. She is currently undergoing hemodialysis. She requested a 3-hour treatment today. She denies any chest pain or shortness of breath. OBJECTIVE: VITAL SIGNS: Blood pressure is 117/59, heart rate 83, respiratory rate 18, temperature 97.5, O2 saturation 98% on 2 L nasal cannula. GENERAL: Awake, alert, comfortable not in distress. SKIN: Adequate turgor. HEENT: She has slightly pale conjunctivae. Anicteric sclerae. NECK: No neck mass. No carotid bruits. No JVD. CHEST: No deformities. LUNGS: Decreased breath sounds. HEART: Normal sinus rhythm. No murmur. No gallops or rubs. ABDOMEN: Globular, soft, nontender. EXTREMITIES: Trace edema. MEDICATIONS: June 22, 2020, was reviewed. LABORATORY DATA: Showed June 20, 2020, white count 7.4, hemoglobin 7.8, potassium 4.9, BUN 68, creatinine 5.67. June 22, 2020, glucose 138. ASSESSMENT AND PLAN: 1. End-stage renale disease stable. We will continue current hemodialysis regimen on Thursday, Thursday, and Thursday. Again, fluid removal only as tolerated by the patient. No changes with the dialysis regimen. 2. Anemia, continuing weekly Epogen. 3. COVID-19 pneumonia, clinically improving. 4. Recheck CBC, basic metabolic in a.m. Job ID: [id number]
[2020-06-22] MEDS: Mometasone 200 MCG/Formoterol 5 MCG 120 PUFF INHALER INH SCH (10:23)
[2020-06-22] MEDS: Sevelamer Carbonate 800 MG TAB PO SCH ×2 (10:49→12:28)
[2020-06-22] MEDS: Midodrine HCl 5 MG TAB PO SCH ×2 (10:50→14:29)
[2020-06-22] MEDS: HumaLOG 300 UNITS/3 ML VIAL SC PRN (12:15)
[2020-06-22 12:18] VITALS: TEMP 97.5
[2020-06-22] MEDS: Atorvastatin Calcium 40 MG TAB PO SCH (12:28)
[2020-06-22] MEDS: Apixaban 2.5 MG TAB PO SCH (12:28)
[2020-06-22] MEDS: Calcitriol 0.25 MCG CAP PO SCH (12:28)
[2020-06-22] MEDS: Aspirin Chewable 81 MG TAB PO SCH (12:29)
[2020-06-22] MEDS: predniSONE 20 MG TAB PO SCH (12:29)
[2020-06-22 15:25] VITALS: BP 102/50
--- NOTE | 2020-06-22 15:46 | PDOC.DS.DS ---
Provider - Provider Date of Admission: 05/25/20 17:03 Date of Discharge: 06/22/20 Admitting Provider: Sheldon Nesbitt DO Consultations: Infectious Disease (Dr. Barr), Nephrology (Dr. Nevarez), Neurology (Dr. Kimbrough), Pulmonary (Dr. Shepard) Primary Care Physician: Salo Bradshaw MD Course - Hospital Course Hospital Course: Discharge diagnoses: 1. Sepsis 2. COVID-19 infection 3. Acute metabolic encephalopathy 4. Hyponatremia 5. Hypoglycemic episodes 7. Hypokalemia 8. Hyperkalemia 9. Physical deconditioning 10. Acute hypercapnic respiratory failure Hospital course: Patient is a pleasant 70-year-old lady who was admitted to the hospital on May 25, 2020 for sepsis. She was started on broad-spectrum antibiotics. She was seen by nephrology service for maintenance hemodialysis. Her COVID-19 PCR test was positive. She received dexamethasone. She was subsequently started on high flow oxygen supplementation and eventually bilevel positive airway pressure therapy. On June 04 she had pulseless electrical activity while off of BiPAP. By June 11, she was transitioned to high flow nasal cannula. She was more verbal. She had diarrhea on June 15. C. difficile test was positive but negative for toxin. It was felt that this was colonization and not infection. She was physically deconditioned. She was seen by therapy services. She is being discharged to inpatient rehab for further management. Many thanks for allowing me to participate in your patient's care. Please feel free to contact me with any questions or concerns. Discharge destination: Inpatient rehab Total amount of time spent coordinating this discharge: 35 minutes Resuscitation Status: 05/25/20 17:34 Resuscitation Status Routine Resuscitation Status: FULL: Full Resuscitation - Labs Lab Results: 06/20/20 05:40 06/20/20 05:40 Microbiology - Entire Visit 06/15/20 03:55 Stool C. difficile GDH Antigen & Toxins - Final 06/15/20 03:55 Stool Clostridioides difficile Toxins A&B (PCR) - Final 06/07/20 15:56 Venous blood - Right Hand Blood Culture - Final NO GROWTH IN 5 DAYS 06/07/20 15:56 Venous blood - Right Hand Blood Culture - Final NO GROWTH IN 5 DAYS - Physical Exam Vitals: Vital Signs (12 hours) Temp Pulse Resp BP BP Pulse Ox 06/22/20 15:22 97.5 F L 99 20 102/50 L 95 06/22/20 14:10 94/51 L 06/22/20 12:50 88/48 L 06/22/20 12:17 97.5 F L 93 20 80/42 L 95 06/22/20 08:01 97.8 F 90 20 106/56 L 100 06/22/20 04:00 97.8 F 90 20 117/56 L 98 Weight Admit Weight 233 lb 3.984 oz Weight 231 lb 9.149 oz Most Recent Monitor Data Heart Rate from ECG 74 NIBP 104/43 NIBP BP-Mean 63 Respiration from ECG 12 SpO2 87 Physical Exam: The patient was seen and examined on the day of discharge. Patient denies chest pain or shortness of breath. Vital signs are stable. S1 and S2 are heard. Lungs are clear to auscultation bilaterally. Plan - Discharge Medications Home Medications: Medication Instructions Recorded Confirmed Type Aspirin Chewable [Aspirin Chewable 81 mg PO HS 04/17/13 05/25/20 History Tablet] Nitroglycerin 0.4 mg SL Q5MIN PRN 09/11/14 05/25/20 History Atorvastatin Calcium [Lipitor] 80 mg PO DAILY 12/14/18 05/25/20 History Insulin Lispro [HumaLOG KwikPen] 0 unit SC TID-WM 06/29/19 05/25/20 History Calcitriol 1 cap PO DAILY 08/23/19 05/25/20 History HYDROcodone/Acetaminophen 1 each PO PRN PRN 08/23/19 05/25/20 History [Hydrocodone-Acetamin 10-325 mg] Apixaban [Eliquis] 2.5 mg PO BID 05/25/20 05/25/20 History Midodrine HCl [ProAmatine] 5 mg PO TID tab 06/22/20 Rx Mometasone/Formoterol 200/5 2 puff INH BID-RT inh 06/22/20 Rx [Dulera 200 Mcg/5 Mcg Inhaler] Sevelamer Carbonate [Renvela] 800 mg PO TID-WM tab 06/22/20 Rx predniSONE 20 mg PO QAM-WM tab 06/22/20 Rx Allergies: codeine Adverse Reaction (Intermediate, Verified 05/25/20 21:39) Nausea morphine Adverse Reaction (Intermediate, Verified 05/25/20 21:39) Nausea - Discharge Instructions Activity:: Activity as Tolerated Nourishment:: Diabetic Diet, Heart Healthy Diet, Renal Diet - Follow up Plan Referrals: [facility], [facility] [Other] (Inpatient rehab admit.) Audrey Kulkarni MD [Active] - (Accepting pcp at the [facility] Salo Bradshaw MD [Primary Care Provider] - (Follow up with after [facility]charge from [facility]) Disposition: HOME Quality - Care Measures CORE MEASURES:: N/A
--- NOTE | 2020-06-25 06:13 | PQF ---
CLINICAL DOCUMENTATION CLARIFICATION FORM: Dear : Steven Baker Date / Time: 06/25/20 06:13 Please exercise your independent, professional judgment in responding to the clarification form. Clinical indicators are provided on the bottom of this form for your review Please check appropriate box(es): [ x ] Sepsis due to Covid 19 infection [ ] Sepsis not due to Covid 19 infection [ ] Other diagnosis, please specify [ ] Unable to determine Physician Signature: Date/Time: For continuity of documentation, please document condition throughout progress notes and discharge summary. Thank You. To be completed by CDI/Coding staff for physician review: Present Clinical Indicators - Signs / Symptoms / Labs Results and Location in Medical Record [x] Sepsis DS 06/22 [x] Covid 19 infection DS 06/22 [x] Acute metabolic encephalopathy DS 06/22 [x] Acute hypercapnic/hypoxic respiratory failure DS 06/22 [x] Chest Xray: worsening multifocal infiltrates Chest Xray 05/30 [x] Temp=98.8 Pulse=93 KC=814/57 Respi=18 Vital Signs 05/25 [x] WBC: 06/05=16.4 06/12=32.9 06/16=15.7 Laboratory 06/05 [x] Lactic: 05/25=1.3,1.0 Laboratory 05/25 [x] Blood culture: no growth Laboratory 06/07 Present Risk Factors Results and Location in Medical Record [x] 75 years old female DS 06/22 [x] DM ED Notes 05/25 [x] Former Smoker ED Notes 05/25 [x] ESRD HP 05/25 [x] Morbid obesity Consult 05/26 [x] Covid19 PNA Consult 05/26 Present Treatments Results and Location in Medical Record [x] BIPAP DS 06/22 [x] Oxygen via NC DS 06/22 [x] Isolation HP 05/25 [x] Cefepime 2gm IV MAR 05/25 [x] Vancomycin 1gm IV AUG 17 [x] IVF AUG 06 [x] ID Consult Consult 06/17 [x] Pulmonary Consult Consult 06/03 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
== END 2020-06-22 16:45 | DRG 871 ==
LOC: ERS 12:17 → T4-A 17:03 → IMCU/EMU 06-02 22:48 → 2SE 06-14 12:47 → 2NO 06-20 16:20
PROVIDERS: ADMIT Family Medicine; ATTEND Internal Medicine
PROC: 8E0ZXY6 Isolation (ICD-10-PCS; principal; 2020-05-25)
PROC: 5A1D70Z Performance of Urinary Filtration, Intermittent, Less than 6 Hours Per Day (ICD-10-PCS; 2020-05-28)
PROC: 5A09557 Assistance with Respiratory Ventilation, Greater than 96 Consecutive Hours, Continuous Positive Airway Pressure (ICD-10-PCS; 2020-06-02)
PROC: XW13325 Transfusion of Convalescent Plasma (Nonautologous) into Peripheral Vein, Percutaneous Approach, New Technology Group 5 (ICD-10-PCS; 2020-06-04)
DX: A41.89 Other specified sepsis (principal); N18.6 End stage renal disease; U07.1 COVID-19; J12.82 Pneumonia due to coronavirus disease 2019; J96.01 Acute respiratory failure with hypoxia; I46.9 Cardiac arrest, cause unspecified; G93.41 Metabolic encephalopathy; J96.02 Acute respiratory failure with hypercapnia; I13.2 Hypertensive heart and chronic kidney disease with heart failure and with stage 5 chronic kidney disease, or end stage renal disease; I48.20 Chronic atrial fibrillation, unspecified; J44.0 Chronic obstructive pulmonary disease with (acute) lower respiratory infection; N25.81 Secondary hyperparathyroidism of renal origin; E87.1 Hypo-osmolality and hyponatremia; N17.9 Acute kidney failure, unspecified; E78.5 Hyperlipidemia, unspecified; I25.10 Atherosclerotic heart disease of native coronary artery without angina pectoris; I50.9 Heart failure, unspecified; E11.22 Type 2 diabetes mellitus with diabetic chronic kidney disease; E66.01 Morbid (severe) obesity due to excess calories; M10.9 Gout, unspecified; E83.51 Hypocalcemia; G25.3 Myoclonus; E11.65 Type 2 diabetes mellitus with hyperglycemia; T38.0X5A Adverse effect of glucocorticoids and synthetic analogues, initial encounter; J20.9 Acute bronchitis, unspecified; E87.5 Hyperkalemia; E83.39 Other disorders of phosphorus metabolism; D63.1 Anemia in chronic kidney disease; E11.649 Type 2 diabetes mellitus with hypoglycemia without coma; G47.33 Obstructive sleep apnea (adult) (pediatric); I27.20 Pulmonary hypertension, unspecified; I08.1 Rheumatic disorders of both mitral and tricuspid valves; D69.6 Thrombocytopenia, unspecified; E87.6 Hypokalemia; I25.2 Old myocardial infarction; Z85.3 Personal history of malignant neoplasm of breast; Z88.5 Allergy status to narcotic agent; Z99.2 Dependence on renal dialysis; Z90.49 Acquired absence of other specified parts of digestive tract; Z90.5 Acquired absence of kidney; Z95.1 Presence of aortocoronary bypass graft; Z90.710 Acquired absence of both cervix and uterus; Z87.891 Personal history of nicotine dependence; Z79.01 Long term (current) use of anticoagulants; Z79.82 Long term (current) use of aspirin; Z79.4 Long term (current) use of insulin; Z79.899 Other long term (current) drug therapy; Z68.37 Body mass index [BMI] 37.0-37.9, adult; Z85.42 Personal history of malignant neoplasm of other parts of uterus; Z85.41 Personal history of malignant neoplasm of cervix uteri; Z90.12 Acquired absence of left breast and nipple; Z83.3 Family history of diabetes mellitus; Z82.49 Family history of ischemic heart disease and other diseases of the circulatory system; Z78.1 Physical restraint status
CPT/HCPCS: 36415; 36416; 36430; 36600; 71045; 74018; 80048; 80053; 80202; 81001; 81003; 81015; 82306; 82553; 82728; 82805; 83605; 83735; 83970; 84100; 84443; 84484; 85025; 85027; 85379; 86140; 86850; 86900; 86901; 87040; 87324; 87340; 87449; 87493; 87635; 90935; 93005; 94660; 96365; 96366; 96368; 96375; G0257; J0692; J1100; J1644; J1815; J2060; J2185; J2248; J2358; J2405; J3370; J3490; J7030; J7512; J8540; P9017; P9047; Q5105; U0003

== ENCOUNTER 2020-07-11 18:23 | Inpatient (IN) | payer MEDICARE ==
[2020-07-11 18:53] LABS: #Eosinphils 0.1 thou/uL (0.0-0.7); #Lymphocytes 1.6 thou/uL (1.20-3.40); #Monocytes 0.9 thou/uL (0.11-0.59); #Neutrophils 4.4 thou/uL (1.40-6.50); %Basophils 0.6 % (0.0-1.0); %Eosinophils 1.1 % (0.0-10.0); %Lymphocytes 23.4 % (21.0-51.0); %Monocytes 12.3 % (0.0-10.0); %Neutrophils 62.5 % (42.0-75.0); Hemoglobin 8.9 g/dL (12.0-16.0); Mean Corpuscular Hemoglobin 32.1 pg (27.0-31.0); Mean Platelet Volume 8.3 fL (7.4-10.4); Platelet Count 224 thou/uL (130-400); RBC Distribution Width 16.8 % (11.5-14.5); Red Blood Cell (RBC) Count 2.78 mill/uL (4.20-5.40)
[2020-07-11 19:16] LABS: ALT (SGPT) 17 U/L (8-55); AST (SGOT) 15 U/L (5-34); Alkaline Phosphatase 93 U/L (40-110); Anion Gap 17 mmol/L (10-20); BUN (Urea Nitrogen) 25 mg/dL (9.8-20.1); Bilirubin, Total 0.3 mg/dL (0.2-1.2); CK (CPK) 26 U/L (29-168); Calc. Creatinine Clearance 0 mL/min (70-130); Calcium 8.4 mg/dL (7.8-10.44); Carbon Dioxide 29 mmol/L (23-31); Chloride 95 mmol/L (98-107); Globulin 2.7 g/dL (2.4-3.5); Glucose 146 mg/dL (83-110); Potassium 4.2 mmol/L (3.5-5.1); Protein, Total 5.7 g/dL (5.8-8.1); Sodium 137 mmol/L (136-145)
--- NOTE | 2020-07-11 19:25 | RAD ---
CHEST ONE VIEW: 07/11/20 HISTORY: Chest pain. COMPARISON: 06/14/20 exam. Heart size is enlarged. Pulmonary vessels are engorged. In addition, there is some peripheral lung ch anges which appears slightly more prominent than on the prior examination. There is a moderate differ ence in technique. IMPRESSION: Bilateral lung infiltrates again noted. These changes appear slightly more prominent than they did on the previous examination but I feel that this is most likely more related to the differences in tech nique. Clinical correlation as to any worsening symptoms of COVID pneumonia. POS: ARBEN
[2020-07-11 19:37] LABS: CKMB 2.2 ng/mL (0-6.6)
[2020-07-11 22:47] LABS: Troponin I 0.062 ng/mL (< 0.028)
--- NOTE | 2020-07-12 01:47 | PDOC.HHP ---
Hospitalist HPI chest pain History of Present Illness: This is a 75-year-old female patient with a history of ESRD coronary artery di sease, congestive heart failure, [place], type 1 diabetes and COPD with recently diagnosed Covid05/2020 was discharged on 06/22/2020 to rehab however she was transferred here from her rehab center at [facility] on account of chest pain. Patient was having dialysis when she suddenly felt pain in the left side of his chest intense at about 6/10 in intensity localized and not abating. Patient notes that she has had couple of episodes of melanotic stools. She has a history of GERD for which she is on Protonix. EMS was activated and she received nitro paste that abated the pain. As presentation her blood pressures were 106/48, pulse 97, saturating 85% on room air requiring 2 L to normalize. Temperature was 98 and respiratory support 20. Labs showed anemia of 8.9 which is around her baseline. Platelet count was 222. Chemistry showed creatinine of 4.68, glucose 146 troponin I 0.53. Chest x-ray showed bilateral lung infiltrates possibly unchanged from previous reading. However to be correlated for symptoms of Covid. She was generally asymptomatic and received no further treatment in the ED. Hospitalist team was consulted for admission Allergies/Adverse Reactions: Allergy/AdvReac Type Severity Reaction Status Date / Time Sulfa (Sulfonamide Allergy Nausea Verified 07/12/20 03:03 Antibiotics) codeine AdvReac Intermediate Nausea Verified 07/12/20 03:03 morphine AdvReac Intermediate Nausea Verified 07/12/20 03:03 Home Medications: Medication Instructions Recorded Confirmed Type Nitroglycerin 0.4 mg SL Q5MIN PRN 09/11/14 07/12/20 History Atorvastatin Calcium [Lipitor] 80 mg PO DAILY 12/14/18 07/12/20 History Insulin Lispro [HumaLOG KwikPen] 0 unit SC TID-WM 06/29/19 07/12/20 History Calcitriol 1 cap PO DAILY 08/23/19 07/12/20 History Midodrine HCl [ProAmatine] 5 mg PO TID tab 06/22/20 07/12/20 Rx Sevelamer Carbonate [Renvela] 800 mg PO TID-WM tab 06/22/20 07/12/20 Rx Ciprofloxacin [Cipro] 250 mg PO BID 07/12/20 07/12/20 History Darbepoetin Lee in Polysorbat 40 mcg SC Q7D 07/12/20 07/12/20 History [Aranesp] Fluticasone/Vilanterol [Breo 1 puff INH QAM 07/12/20 07/12/20 History Ellipta] Insulin Detemir [Levemir] 5 units SC BID 07/12/20 07/12/20 History Pantoprazole [Protonix] 40 mg PO BID 07/12/20 07/12/20 History Past History: PMHx: ESRD on dialysis, hypertension, carotid artery disease,COPD, recently diagnosed with Covid. Type 1 diabetes mellitus PSHx: Right nephrectomy, mastectomy, CABG, hysterectomy FHx: None of significance Social: Former smoker. No alcohol use. Lives in nursing facility Hospitalist HPI ROS Constitutional: denies: fever, chills, sweats, weakness Eyes: denies: pain, vision change Respiratory: reports: shortness of breath. denies: cough, hemoptysis, SOB with excertion Cardiovascular: reports: chest pain. denies: palpitations, orthopnea, paroxysmal noc. dyspnea Gastrointestinal: denies: nausea, vomiting, abdominal pain, diarrhea Genitourinary: denies: dysuria, frequency, incontinence, hematuria Neurological: denies: weakness, numbness, incoordination All other systems reviewed; all pertinent +/- noted in HPI/Subj Hospitalist Exam General Appearance: awake alert General - other findings: In no acute distress ENT: normocephalic atraumatic Neck: negative: supple, symmetric Heart: negative: RRR, no murmur, no gallops Respiratory: CTAB, no wheezes, no rales, no ronchi Gastrointestinal: soft, non-tender, non-distended, normal bowel sounds Extremities: no cyanosis, no clubbing, no edema Skin: normal turgor Neurological: cranial nerve grossly intact, no weakness, no focal deficits Psychiatric: normal affect, normal behavior, A&O x 3 Hospitalist Results Result Diagrams: 07/12/20 04:01 07/11/20 18:42 Lab results: Laboratory Last Values WBC 7.0 thou/uL (4.8-10.8) 07/11/20 18:42 RBC 2.78 mill/uL (4.20-5.40) L 07/11/20 18:42 Hgb 8.9 g/dL (12.0-16.0) L 07/11/20 18:42 Hct 27.9 % (36.0-47.0) L 07/11/20 18:42 MCV 100.0 fL (78.0-98.0) H 07/11/20 18:42 MCH 32.1 pg (27.0-31.0) H 07/11/20 18:42 MCHC 32.0 g/dL (32.0-36.0) 07/11/20 18:42 RDW 16.8 % (11.5-14.5) H 07/11/20 18:42 Plt Count 224 thou/uL (130-400) 07/11/20 18:42 MPV 8.3 fL (7.4-10.4) 07/11/20 18:42 Neutrophils % 62.5 % (42.0-75.0) 07/11/20 18:42 Lymphocytes % 23.4 % (21.0-51.0) 07/11/20 18:42 Monocytes % 12.3 % (0.0-10.0) H 07/11/20 18:42 Eosinophils % 1.1 % (0.0-10.0) 07/11/20 18:42 Basophils % 0.6 % (0.0-1.0) 07/11/20 18:42 Neutrophils # 4.4 thou/uL (1.40-6.50) 07/11/20 18:42 Lymphocytes # 1.6 thou/uL (1.20-3.40) 07/11/20 18:42 Monocytes # 0.9 thou/uL (0.11-0.59) H 07/11/20 18:42 Eosinophils # 0.1 thou/uL (0.0-0.7) 07/11/20 18:42 Basophils # 0.0 thou/uL (0.0-0.2) 07/11/20 18:42 Sodium 137 mmol/L (136-145) 07/11/20 18:42 Potassium 4.2 mmol/L (3.5-5.1) 07/11/20 18:42 Chloride 95 mmol/L (98-107) L 07/11/20 18:42 Carbon Dioxide 29 mmol/L (23-31) 07/11/20 18:42 Anion Gap 17 mmol/L (10-20) 07/11/20 18:42 BUN 25 mg/dL (9.8-20.1) H 07/11/20 18:42 Creatinine 4.68 mg/dL (0.6-1.1) H 07/11/20 18:42 Estimated GFR (MDRD) 9 07/11/20 18:42 Glucose 146 mg/dL (83-110) H 07/11/20 18:42 Calcium 8.4 mg/dL (7.8-10.44) 07/11/20 18:42 Total Bilirubin 0.3 mg/dL (0.2-1.2) 07/11/20 18:42 AST 15 U/L (5-34) 07/11/20 18:42 ALT 17 U/L (8-55) 07/11/20 18:42 Alkaline Phosphatase 93 U/L (40-110) 07/11/20 18:42 Creatine Kinase 26 U/L (29-168) L 07/11/20 18:42 CK-MB (CK-2) 2.2 ng/mL (0-6.6) 07/11/20 18:42 Troponin I 0.062 ng/mL (< 0.028) H 07/11/20 22:09 B-Natriuretic Peptide 378.5 pg/mL (0-100) H 07/11/20 18:42 Serum Total Protein 5.7 g/dL (5.8-8.1) L 07/11/20 18:42 Albumin 3.0 g/dL (3.4-4.8) L 07/11/20 18:42 Globulin 2.7 g/dL (2.4-3.5) 07/11/20 18:42 Albumin/Globulin Ratio 1.1 g/dL (1.2-2.2) L 07/11/20 18:42 Hospitalist H&P A/P Plan: This is a pleasant elderly lady with a history of ESRD on dialysis, coronary artery disease at this post CABG and diabetes mellitus who presents with chest pain while having dialysis at a rehab center Chest pain Likely cardiac given resolution with nitroglycerin and her cardiac history. Received aspirin and nitroglycerin with resolution Troponin elevatedwe will trend Monitor on telemetry Keep n.p.o. Cardiology consult in a.m. ESRD Nephrology consult in a.m. Atrial flutter Noted on telemetry however no RVR Melena stools Patient complaining of melanotic stools Possible GI bleed however this is unclear Hemoglobin has remained stable or I will place on Protonix for now Consider GI consult in a.m. Current artery disease Continue home medications once verified. CODE STATUSfull code VTE prophylaxishold for now.
[2020-07-12 01:49] LABS: Troponin I 0.056 ng/mL (< 0.028)
[2020-07-12 02:46] VITALS: BMI 35.9
[2020-07-12] MEDS ORDERED: Dextrose 5% in Water 1,000 ML IV PRN (03:30)
[2020-07-12] MEDS ORDERED: Dextrose 50% Abboject 50 ML SYRINGE SLOW IVP PRN (03:30)
[2020-07-12] MEDS ORDERED: Sodium Chloride 0.9% (PF) 10 ML VIAL FS PRN (04:00)
[2020-07-12 04:55] LABS: Hemoglobin 8.4 g/dL (12.0-16.0); Mean Corpuscular HGB CONC 32.3 g/dL (32.0-36.0); Mean Corpuscular Hemoglobin 32.5 pg (27.0-31.0); Mean Platelet Volume 8.4 fL (7.4-10.4); Platelet Count 210 thou/uL (130-400); RBC Distribution Width 16.7 % (11.5-14.5); White Blood Cell (WBC) Count 5.7 thou/uL (4.8-10.8)
[2020-07-12 05:27] LABS: Troponin I 0.072 ng/mL (< 0.028)
[2020-07-12 05:33] LABS: Anion Gap 14 mmol/L (10-20); BUN (Urea Nitrogen) 31 mg/dL (9.8-20.1); Calc. Creatinine Clearance 14 mL/min (70-130); Calcium 8.4 mg/dL (7.8-10.44); Carbon Dioxide 31 mmol/L (23-31); Chloride 96 mmol/L (98-107); Glucose 235 mg/dL (83-110); Sodium 137 mmol/L (136-145)
[2020-07-12 05:49] LABS: Band 9 % (5-11); Eosinophils 1 % (0-10); Lymphocytes 21 % (21-51); MDiff Complete? YES; Monocytes 12 % (0-10); Myelocyte 1 % (0-0); Neutrophil 56 % (42-75)
[2020-07-12] MEDS: Pantoprazole 40 MG VIAL IVP SCH ×2 (08:33→20:32)
[2020-07-12] MEDS ORDERED: Epoetin (ESRD) 20,000 UNITS/ML SC SCH (08:45)
--- NOTE | 2020-07-12 09:11 | PRG ---
DATE OF SERVICE: 07/12/2020 SUBJECTIVE: Ms. Lehman is a 75-year-old white female with ESRD on maintenance hemodialysis. While undergoing hemodialysis yesterday, she developed chest pain. The chest pain remains persistent. This episode happened at [facility]. She was transferred to [place] for further management. She is being ruled out for [place]. We are following up for her maintenance hemodialysis. She did have shorten treatment with regard to her dialysis yesterday due to the chest pain. This morning, she is feeling better. She denies any chest pain or shortness of breath. OBJECTIVE: VITAL SIGNS: Blood pressure is noted at 104/53, heart rate 101, respiratory rate 20, temperature 98.2, O2 saturation 100%. GENERAL: The patient is awake, comfortable, obese, not in distress. SKIN: Adequate turgor. HEENT: Slightly pale conjunctivae. Anicteric sclerae. NECK: No neck mass. No carotid bruits. No JVD. CHEST: No deformities. LUNGS: Clear breath sounds. HEART: Normal sinus rhythm. No murmur. No gallops. No rubs. ABDOMEN: Globular, soft, nontender. No masses. EXTREMITIES: No edema. No deformities. MEDICATIONS: Of July 12, 2020, was reviewed. LABORATORY AND DIAGNOSTIC DATA: Laboratories of July 12, 2020, white count 5.7, hemoglobin 8.4, sodium 137, potassium 4, chloride 96, carbon dioxide 31, BUN 31, creatinine 5.46, glucose 235, calcium 8.4. On July 11, 2020, BNP 378. Please note that the patient's calcium was noted at 8.4. Her troponin I is actually 0.056, which is borderline. Chest x-ray of July 11, 2020, showed bilateral lung infiltrates, relatively stable. ASSESSMENT AND PLAN: 1. Chest pain. The patient being ruled out for myocardial infarction. She may need a cardiac stress test. 2. End-stage renal disease, stable. Although she did have shorten dialysis treatment yesterday, I do not feel there is any indication for any repeat dialysis today. We will schedule her back on a regular Thursday, Thursday, Thursday hemodialysis. She is relatively tolerating her said dialysis treatment of 3 hours each treatment. 3. Anemia. Restart Epogen 10,000 units subcu q.week. Job ID: [id number]
[2020-07-12] MEDS ORDERED: Lidocaine 1% PF 5 ML VIAL ONE (09:45)
[2020-07-12] MEDS ORDERED: PHENYLEPHRINE-NS 100 MCG/ML 10 ML SYRINGE ONE (09:45)
[2020-07-12] MEDS ORDERED: Ondansetron PF 4 MG/2 ML Vial ONE (09:45)
[2020-07-12] MEDS ORDERED: ePHEDrine 50 MG/ML VIAL ONE (09:45)
[2020-07-12] MEDS ORDERED: PROPOFOL 200 MG/20 ML VIAL ONE (09:45)
--- NOTE | 2020-07-12 11:38 | CON ---
DATE OF CONSULTATION: HISTORY OF PRESENT ILLNESS: The patient is an unfortunate 75-year-old woman, who presented with chest discomfort. The patient has a long history of coronary artery disease. In 2006, she underwent a cardiac catheterization and was found to have three-vessel coronary artery disease. The patient subsequently underwent coronary artery bypass surgery x3, a CELESTE was placed to the LAD, a saphenous vein graft to the OM and to a diagonal branch. The patient also has developed diastolic heart failure. She has a history of pulmonary hypertension. The patient also developed end-stage renal disease, nd is on dialysis. The patient has a history of atrial fibrillation and was on anticoagulation until recently. The patient most recently was admitted with COVWV. She was at that time apparently significantly hypotensive, was taken off many of her antianginal medications and placed on midodrine. The patient recovered from the COVID and was in rehab when she started having GI hemorrhage. She was taken off her aspirin and Eliquis. She was transfused several units of packed red blood cells. The patient presents with a left-sided chest discomfort, this lasted for several hours. The patient reports she continues to have dark stool. The patient denies having any present chest discomfort. PAST MEDICAL HISTORY: 1. Coronary artery disease. 2. Hypertension. 3. Cor pulmonale. 4. Tricuspid regurgitation. 5. Mitral regurgitation. 6. Sleep apnea. 7. Paroxysmal atrial fibrillation. 8. Dyslipidemia. 9. Diabetes mellitus. 10. Morbid obesity. 11. Breast carcinoma. PAST SURGICAL HISTORY: Coronary artery bypass graft surgery,mastectomy, and hysterectomy. SOCIAL HISTORY: Nonsmoker. FAMILY HISTORY: Strong family history of heart disease. ALLERGIES: CODEINE, MORPHINE, SULFA. REVIEW OF SYSTEMS: Ten-point system is notable for continue dark stool. PHYSICAL EXAMINATION: GENERAL: Obese woman, in no acute distress. VITAL SIGNS: Blood pressure 104/53. NECK: Showed no jugular venous distention. LUNGS: Have coarse breath sounds in both lung lee. HEART: Irregular rate and rhythm with a 3/6 holosystolic murmur. ABDOMEN: Distended. EXTREMITIES: Showed moderate bilateral edema. VASCULAR: Radial pulse 2+. LABORATORY DATA: Sodium 137, potassium 4.0, chloride 96, bicarbonate 31, BUN 31, creatinine 5.4, glucose 235. Her white blood cell count 5.7, hemoglobin 8.4, hematocrit 26.1, her platelets are 210. EKG atrial fibrillation with a right bundle-branch block. No acute ST-T wave changes. IMPRESSION: 1. Chest pain, suggestive of angina. 2. History of coronary artery bypass surgery. 3. Paroxysmal atrial fibrillation. 4. Cor pulmonale. 5. History of diastolic heart failure. 6. End-stage renal disease. 7. Diabetes mellitus. 8. Dyslipidemia. 9. Severe tricuspid regurgitation. 10. Recent COVID pneumonia. 11. Morbid obesity. 12. Gastrointestinal hemorrhage. The patient presents with chest pain and atrial fibrillation with apparent gastrointestinal hemorrhage. She has been transfused several units of packed red blood cells recently. The patient was taken off aspirin and Eliquis. The patient needs to undergo GI evaluation. Hopefully, she will be able to be restarted on anti-platelet medication as well as Eliquis. She is certainly at high risk of cardiac events. The patient also would benefit if she could be placed back on her antianginal medications, but she remains hypotensive. We will follow this patient with you through her hospitalization. Job ID: [id number] [facility]
[2020-07-12] MEDS ORDERED: Midazolam HCl 2 mg/2 ml Vial ONE (11:56)
[2020-07-12] MEDS ORDERED: Ketamine 50 MG/ML (10ML VIAL) ONE (11:56)
[2020-07-12] MEDS ORDERED: PROPOFOL 20 ML ONE (11:56)
--- NOTE | 2020-07-12 12:03 | CON ---
DATE OF CONSULTATION: HISTORY OF PRESENT ILLNESS: The patient is a 75-year-old female, who recently was hospitalized for COVID, recovered from that and discharged to rehab on June 22. She developed some chest pain while undergoing dialysis, then had several episodes of black stools. She has a long history of gastroesophageal reflux disease, which she takes Protonix. This Protonix does not seem to control her symptoms very well. She had several episodes of black stool, but not had any today. She has had no nausea or vomiting. She did have some abdominal pain, she says it has resolved. She denies any weight loss. She denies any recent endoscopic procedures. PAST MEDICAL HISTORY: Includes COPD; COVID; diabetes mellitus; end-stage renal disease, on hemodialysis; hypertension, peripheral vascular disease. PAST SURGICAL HISTORY: Includes nephrectomy, mastectomy, hysterectomy, and coronary artery bypass. SOCIAL HISTORY: She smokes. Does not drink alcohol. FAMILY HISTORY: Negative. HOME MEDICATIONS: Include; 1. Insulin. 2. Nitroglycerin. 3. Midodrine. 4. Pantoprazole 40 mg b.i.d. 5. Renvela 800 mg p.o. t.i.d. 6. Lipitor 80 mg p.o. daily. 7. Aranesp. 8. Ciprofloxacin. 9. Calcitriol. 10. Fluticasone and vilanterol. 11. She was on, she said Eliquis, but there is no mention in the medical record of this medication. REVIEW OF SYSTEMS: Noncontributory. PHYSICAL EXAMINATION: GENERAL: Shows an elderly female, in no acute distress. The patient is obese. VITAL SIGNS: Temperature 98.2, pulse 101, respiratory rate 20, blood pressure is 104/53. HEENT: Unremarkable. NECK: Supple. CHEST: Clear. CARDIOVASCULAR: Regular rate and rhythm. ABDOMEN: Obese, soft, nontender without organomegaly or masses. RECTAL: Deferred. EXTREMITIES: Normal. LABORATORY DATA: Show a hemoglobin of 8.9, dropping to 8.4; MCV is 100; platelet count is 224. ASSESSMENT: 1. Melena. 2. Gastroesophageal reflux disease - poorly controlled on b.i.d. PPI. 3. End-stage renal disease. 4. Atrial flutter. PLAN: 1. EGD. 2. Serial hemoglobin and hematocrit. 3. EGD results . Job ID: [id number]
[2020-07-12] MEDS ORDERED: Promethazine HCl 25 MG/ML VIAL IM PRN (12:44)
[2020-07-12] MEDS ORDERED: Ondansetron HCl/PF 4 MG/2 ML Vial IVP PRN (12:44)
[2020-07-12] MEDS ORDERED: Promethazine HCl 25 MG/ML VIAL SLOW IVP PRN (12:44)
[2020-07-12] MEDS: EPOETIN ALFA-EPBX (ESRD) 10,000 UNIT/ML VIAL SC SCH (14:02)
--- NOTE | 2020-07-12 14:29 | OP ---
DATE OF PROCEDURE: 07/12/2020 PREOPERATIVE DIAGNOSIS: Melena. DESCRIPTION OF PROCEDURE: After informed consent was obtained, the patient was placed in the left lateral decubitus position. Anesthesia administered per the Anesthesia Department. Forward-viewing endoscope was inserted into esophagus under direct visualization with ease and passed to the second portion of the duodenum with ease. The second portion of the duodenum was normal. The duodenal bulb showed multiple ulcers, all with clean white bases. No active bleeding. These ranged from 7 mm to 1.2 cm. No visible vessels or active bleeding was noted. The pylorus, antrum, body, fundus, and cardia were all normal. Biopsies were taken from the antrum for Helicobacter pylori. Retroflexion in the stomach was normal. Esophagus was normal throughout. ASSESSMENT: 1. Multiple duodenal ulcers, all clean white based without active bleeding or visible vessels. 2. Otherwise normal esophagogastroduodenoscopy. RECOMMENDATIONS: 1. Await Helicobacter pylori results. 2. Resume regular diet. 3. Continue proton pump inhibitor. 4. NSAID avoidance. Job ID: [id number]
[2020-07-12] MEDS: HumaLOG 300 UNITS/3 ML VIAL SC PRN ×2 (16:48→22:06)
--- NOTE | 2020-07-12 17:21 | PDOC.HOSPP ---
- Subjective Encounter Date: 07/12/20 Encounter Time: 08:00 Subjective: Patient seen in follow-up for chest pain. She denies any current chest pain. She denies nausea or vomiting. - Objective Vital Signs & Weight: Vital Signs (12 hours) Temp Pulse Resp BP Pulse Ox 07/12/20 15:03 98.0 F 106 H 20 91/49 L 100 07/12/20 11:24 98.4 F 98 20 113/56 L 98 07/12/20 07:30 98.2 F 101 H 20 104/53 L 100 07/12/20 05:45 87 122/57 L Weight Weight 223 lb I&O: 07/11/20 07/12/20 07/13/20 06:59 06:59 06:59 Output Total 75 Balance -75 Result Diagrams: 07/12/20 04:01 07/12/20 04:01 Additional Labs: Accuchecks 07/12/20 07/12/20 07/12/20 16:36 11:17 05:34 POC Glucose 217 H 167 H 217 H I reviewed patient's labs and MAR EKG Reviewed by me: Yes (Uriel dykes on telemetry) Hospitalist ROS - Review of Systems Cardiovascular: denies: chest pain, palpitations, orthopnea, paroxysmal noc. dyspnea, edema, light headedness Gastrointestinal: denies: nausea, vomiting, abdominal pain, diarrhea, constipation, melena, hematochezia - Medication Medications: Active Medications Generic Name Dose Route Start Last Admin Trade Name Freq PRN Reason Stop Dose Admin Epoetin Lee-epbx 10,000 unit 07/12/20 12:00 07/12/20 14:02 Epoetin Lee-Epbx (Esrd) 10,000 Unit/Ml Vial SC 10,000 unit Q7D REJI Administration Insulin Human Lispro 0 units 07/12/20 03:30 07/12/20 16:48 Humalog 300 Units/3 Ml Vial SC 3 unit .MILD SLIDING SCALE PRN Administration Mild Correctional Scale Pantoprazole Sodium 40 mg 07/12/20 09:00 07/12/20 08:33 Pantoprazole 40 Mg Vial IVP 40 mg Q12HR REJI Administration Hospitalist Exam Vitals: Vital Signs (12 hours) Temp Pulse Resp BP Pulse Ox 07/12/20 15:03 98.0 F 106 H 20 91/49 L 100 07/12/20 11:24 98.4 F 98 20 113/56 L 98 07/12/20 07:30 98.2 F 101 H 20 104/53 L 100 07/12/20 05:45 87 122/57 L Weight Weight 223 lb General Appearance: NAD Eye: anicteric sclera ENT: normocephalic atraumatic Neck: supple Heart: irregular Respiratory: CTAB Gastrointestinal: soft, non-tender Skin: no rashes Psychiatric: normal affect, normal behavior Hosp A/P - Plan Chest pain Likely cardiac Appreciate cardiology service input Monitor on telemetry ESRD Nephrology consulted for maintenance dialysis Atrial flutter Eliquis is on hold at this time Melena stools Secondary to duodenal ulcers. Status post EGD. Resume aspirin tomorrow.
[2020-07-12] MEDS ORDERED: Sodium Chloride 0.9% 500 ML IVPB SCH (20:30)
[2020-07-12] MEDS: Atorvastatin Calcium 40 MG TAB PO SCH (20:32)
--- NOTE | 2020-07-13 06:35 | PRG ---
DATE OF SERVICE: 07/13/2020 SUBJECTIVE: Ms. Lehman is a 75-year-old white female, who was initially admitted for chest pain. Chest pain resolved. We are following her up for management of her ESRD. She is on maintenance hemodialysis and tolerating said treatment. I have scheduled her for dialysis this morning. The patient denies any chest pain, shortness of breath, however, she feels tired. OBJECTIVE: VITAL SIGNS: Blood pressure 101/52, heart rate 87, respiratory rate 18, temperature 97.9, O2 saturation 99%. GENERAL: The patient is awake, alert, supine, comfortable, not in overt distress. SKIN: Adequate turgor. HEENT: She has slightly pale conjunctivae. Anicteric sclerae. No neck mass. No carotid bruits. No JVD. CHEST: No deformities. LUNGS: Clear breath sounds. HEART: Normal sinus rhythm. No murmurs, gallops, or rubs. ABDOMEN: Globular, soft, nontender. No masses. EXTREMITIES: No edema. No deformities. MEDICATIONS: Medications of July 13, 2020, reviewed. LABORATORY DATA: Laboratories of July 12, 2020, white count 5.7, hemoglobin 8.4. Sodium 137, potassium 4, chloride 96, carbon dioxide 31, BUN 31, creatinine 5.46, calcium 8.4. July 13, 2020, glucose 225. ASSESSMENT AND PLAN: 1. Chest pain, resolved. Clinically, no recurrence of chest pain or shortness of breath. 2. End-stage renal disease, stable. We will continue current Thursday, Thursday, and Thursday hemodialysis. I have scheduled the patient for 3-hour hemodialysis. Fluid removal only as tolerated. If needed, we can give volume repletion with this patient if blood pressure drops down with dialysis. 3. Anemia. Continue Epogen 10,000 units subcu every week. 4. Recheck CBC, basic metabolic in a.m. Job ID: [id number]
[2020-07-13] MEDS: HumaLOG 300 UNITS/3 ML VIAL SC PRN ×2 (07:14→17:56)
[2020-07-13] MEDS: Pantoprazole 40 MG VIAL IVP SCH ×2 (08:34→20:54)
[2020-07-13] MEDS: Aspirin 81 mg Enteric Coated Tablet PO SCH (08:34)
[2020-07-13] MEDS: Ezetimibe 10 MG TAB PO SCH (08:34)
[2020-07-13 09:42] LABS: Platelet Count 186 thou/uL (130-400)
[2020-07-13] MEDS ORDERED: Nitroglycerin 4.9 GM Bottle SL PRN (11:55)
[2020-07-13] MEDS ORDERED: Nitroglycerin 0.4 MG TAB (25 Tab Bottle) ONE (11:56)
--- NOTE | 2020-07-13 13:10 | PRG ---
DATE OF SERVICE: 07/13/2020 SUBJECTIVE: The patient reports she is still having some chest discomfort, a lot of belching when eating. She had 1 bowel movement last night that was dark. She has had no bowel movements today. OBJECTIVE: VITAL SIGNS: Temperature 97.8, pulse 84, respiratory rate 20, blood pressure 112/54. CHEST: Clear. CARDIOVASCULAR: Regular rate and rhythm. ABDOMEN: Soft, nontender without organomegaly or masses. LABORATORY DATA: Shows hemoglobin 8.0, hematocrit 25.2. ASSESSMENT: 1. Multiple duodenal ulcers. 2. GI bleed. 3. Anemia secondary to GI bleed. 4. End-stage renal disease. 5. Atrial flutter. RECOMMENDATIONS: 1. Okay to start Eliquis in 2 days. 2. Continue IV PPI b.i.d. 3. Serial H and H. Job ID: [id number]
--- NOTE | 2020-07-13 17:59 | PDOC.HOSPP ---
- Subjective Encounter Date: 07/13/20 Encounter Time: 10:00 Subjective: Patient seen for follow-up of chest pain. She reports feeling better. Could not have dialysis today because she had chest pain during dialysis. - Objective Vital Signs & Weight: Vital Signs (12 hours) Temp Pulse Resp BP Pulse Ox 07/13/20 15:51 98.1 F 95 15 98/47 L 100 07/13/20 12:30 97.5 F L 99 18 100/49 L 98 07/13/20 07:47 97.8 F 84 20 112/54 L 99 Weight Weight 219 lb I&O: 07/12/20 07/13/20 07/14/20 06:59 06:59 06:59 Intake Total 1280 360 Output Total 75 225 75 Balance -75 1055 285 Result Diagrams: 07/13/20 09:27 07/13/20 09:27 Additional Labs: Accuchecks 07/13/20 07/13/20 07/13/20 17:18 11:45 05:53 POC Glucose 211 H 226 H 225 H 07/12/20 20:26 POC Glucose 212 H Labs and MAR reviewed by me EKG Reviewed by me: Yes (Telemetry: Uriel dykes) Hospitalist ROS - Review of Systems Cardiovascular: reports: chest pain. denies: palpitations, orthopnea, paroxysmal noc. dyspnea, edema, light headedness Gastrointestinal: denies: nausea, vomiting, abdominal pain, diarrhea, constipation, melena, hematochezia - Medication Medications: Active Medications Generic Name Dose Route Start Last Admin Trade Name Freq PRN Reason Stop Dose Admin Aspirin 81 mg 07/13/20 09:00 07/13/20 08:34 Aspirin 81 Mg Enteric Coated Tablet PO 81 mg DAILY REJI Administration Atorvastatin Calcium 80 mg 07/12/20 21:00 07/12/20 20:32 Atorvastatin Calcium 40 Mg Tab PO 80 mg HS REJI Administration Ezetimibe 10 mg 07/13/20 09:00 07/13/20 08:34 Ezetimibe 10 Mg Tab PO 10 mg DAILY REJI Administration Epoetin Lee-epbx 10,000 unit 07/12/20 12:00 07/12/20 14:02 Epoetin Lee-Epbx (Esrd) 10,000 Unit/Ml Vial SC 10,000 unit Q7D REJI Administration Insulin Human Lispro 0 units 07/12/20 03:30 07/13/20 07:14 Humalog 300 Units/3 Ml Vial SC 3 unit .MILD SLIDING SCALE PRN Administration Mild Correctional Scale Insulin Human Lispro 0 units 07/12/20 03:30 07/12/20 22:06 Humalog 300 Units/3 Ml Vial SC 2 units .BEDTIME SLIDING SC PRN Administration Bedtime Correctional Scale Pantoprazole Sodium 40 mg 07/12/20 09:00 07/13/20 08:34 Pantoprazole 40 Mg Vial IVP 40 mg Q12HR REJI Administration Sodium Chloride 10 ml 07/12/20 11:10 07/12/20 20:33 Flush - Normal Saline 10 Ml Syringe IVF 10 ml PRN PRN Administration Saline Flush Hospitalist Exam Vitals: Vital Signs (12 hours) Temp Pulse Resp BP Pulse Ox 07/13/20 15:51 98.1 F 95 15 98/47 L 100 07/13/20 12:30 97.5 F L 99 18 100/49 L 98 07/13/20 07:47 97.8 F 84 20 112/54 L 99 Weight Weight 219 lb General Appearance: awake alert Eye: anicteric sclera ENT: moist mucosa Neck: supple Heart: no gallops, irregular Respiratory: CTAB Gastrointestinal: soft, non-tender Skin: no rashes Psychiatric: normal affect, normal behavior Hosp A/P - Plan Chest pain Likely cardiac Cardiology service following Monitor on telemetry ESRD Nephrology consulted for maintenance dialysis Atrial flutter Eliquis is on hold at this time Aspirin has been started For cardioversion on Thursday Melena stools Secondary to duodenal ulcers. Aspirin has been started Eliquis will be started in 2 more days
[2020-07-13] MEDS: Atorvastatin Calcium 40 MG TAB PO SCH (20:54)
[2020-07-14 04:42] LABS: Hemoglobin 7.9 g/dL (12.0-16.0)
[2020-07-14 04:43] LABS: #Eosinphils 0.2 thou/uL (0.0-0.7); #Lymphocytes 1.4 thou/uL (1.20-3.40); #Monocytes 0.6 thou/uL (0.11-0.59); #Neutrophils 2.4 thou/uL (1.40-6.50); %Basophils 0.4 % (0.0-1.0); %Eosinophils 3.4 % (0.0-10.0); %Lymphocytes 30.9 % (21.0-51.0); %Monocytes 12.1 % (0.0-10.0); %Neutrophils 53.4 % (42.0-75.0); Hemoglobin 7.9 g/dL (12.0-16.0); Mean Corpuscular HGB CONC 31.8 g/dL (32.0-36.0); Mean Corpuscular Hemoglobin 32.4 pg (27.0-31.0); Mean Platelet Volume 8.9 fL (7.4-10.4); Platelet Count 184 thou/uL (130-400); RBC Distribution Width 17.2 % (11.5-14.5); Red Blood Cell (RBC) Count 2.45 mill/uL (4.20-5.40); White Blood Cell (WBC) Count 4.6 thou/uL (4.8-10.8)
[2020-07-14 05:02] LABS: Anion Gap 13 mmol/L (10-20); BUN (Urea Nitrogen) 29 mg/dL (9.8-20.1); Calc. Creatinine Clearance 14 mL/min (70-130); Calcium 8.4 mg/dL (7.8-10.44); Carbon Dioxide 29 mmol/L (23-31); Chloride 102 mmol/L (98-107); Glucose 256 mg/dL (83-110); Potassium 4.7 mmol/L (3.5-5.1); Sodium 139 mmol/L (136-145)
[2020-07-14] MEDS: HumaLOG 300 UNITS/3 ML VIAL SC PRN ×3 (05:49→18:19)
[2020-07-14] MEDS: Aspirin 81 mg Enteric Coated Tablet PO SCH (08:41)
[2020-07-14] MEDS: Ezetimibe 10 MG TAB PO SCH (08:41)
[2020-07-14] MEDS: Pantoprazole 40 MG VIAL IVP SCH ×2 (08:42→20:16)
--- NOTE | 2020-07-14 11:13 | PRG ---
DATE OF SERVICE: 07/14/2020 SUBJECTIVE: Ms. Lehman is a 75-year-old white female with ESRD and followed up by the [facility] for her maintenance hemodialysis. She underwent hemodialysis. This was shortened due to severe anxiety. In the interim, the patient has had an upper GI endoscopy which showed an ulcer, but no active bleeding. In addition, the patient is scheduled for a possible transesophageal echo this coming Thursday. This morning, she voices no new complaints. No chest pain or shortness of breath. OBJECTIVE: VITAL SIGNS: Blood pressure 107/53, heart rate 104, respiratory rate 18, temperature 98, O2 saturation 99%. GENERAL: The patient is awake, alert, comfortable, not in overt distress. SKIN: Adequate turgor. HEENT: Slightly pale conjunctivae. Anicteric sclerae. No neck mass. No carotid bruits. No JVD. CHEST: No deformities. LUNGS: Clear breath sounds. No wheezing. No crackles. HEART: Irregular. No murmur. No gallops. No rubs. ABDOMEN: Globular, soft, nontender. EXTREMITIES: No edema. No deformities. MEDICATIONS: On July 14, 2020, reviewed. LABORATORY DATA: On July 14, 2020, hemoglobin 7.9. Sodium 139, potassium 4.7, chloride 102, carbon dioxide 29, BUN 29, creatinine 5.7, calcium 8.4, glucose 256. ASSESSMENT AND PLAN: 1. Status post gastrointestinal bleed - upper GI endoscopy showed no active bleeding. GI following. 2. End-stage renal disease, stable. We will continue heparin for hemodialysis regimen. There is no indication for any dialytic intervention with this patient. She looks euvolemic and potassium is noted to be normal. 3. Coronary artery disease/?atrial fibrillation - according to the patient, she is scheduled for a transesophageal echo this coming Thursday. 4. Anemia. Continue weekly Epogen 10,000 units subcu q. week. We will recheck CBC, basic metabolic in a.m. Job ID: [id number]
--- NOTE | 2020-07-14 12:55 | PRG ---
DATE OF SERVICE: 07/14/2020 SUBJECTIVE: The patient is feeling good. She had one bowel movement last night that was dark. She has had no nausea or vomiting. OBJECTIVE: VITAL SIGNS: Temperature 97.8, pulse 88, respiratory rate 18, and blood pressure 98/50. CHEST: Clear. CARDIOVASCULAR: Regular rate and rhythm. ABDOMEN: Benign. LABORATORY DATA: Shows hemoglobin of 7.9, hematocrit 25.2. ASSESSMENT: 1. Duodenal ulcers. 2. End-stage renal disease. 3. Coronary artery disease. 4. Atrial fibrillation. 5. Anemia. RECOMMENDATIONS: 1. The patient to undergo cardioversion on Thursday. 2. Continue PPI. 3. Okay to resume anticoagulation tomorrow if needed. Job ID: [id number]
--- NOTE | 2020-07-14 19:21 | PDOC.HOSPP ---
- Subjective Encounter Date: 07/14/20 Encounter Time: 14:00 Subjective: Patient seen in follow-up for chest pain. No chest pain today. - Objective Vital Signs & Weight: Vital Signs (12 hours) Temp Pulse Pulse Resp BP BP Pulse Ox 07/14/20 17:06 97.8 F 94 23 H 96/54 L 94 L 07/14/20 11:35 97.9 F 88 18 98/50 L 93 L 07/14/20 10:30 96 107/53 L 07/14/20 08:38 98.0 F 104 H 18 107/53 L 99 Pulse Ox 07/14/20 17:06 07/14/20 11:35 07/14/20 10:30 99 07/14/20 08:38 Weight Weight 221 lb 5.506 oz I&O: 07/13/20 07/14/20 07/15/20 06:59 06:59 06:59 Intake Total 8937 787 9190 Output Total 225 275 Balance 8493 373 1457 Result Diagrams: 07/14/20 04:27 07/14/20 04:27 Additional Labs: Accuchecks 07/14/20 07/14/20 07/14/20 18:06 11:12 05:35 POC Glucose 184 H 307 H 219 H 07/13/20 20:31 POC Glucose 191 H I reviewed patient's labs and MAR EKG Reviewed by me: Yes (Telemetry: Uriel dykes) Hospitalist ROS - Review of Systems Cardiovascular: denies: chest pain, palpitations, orthopnea, paroxysmal noc. dyspnea, edema, light headedness Gastrointestinal: denies: nausea, vomiting, abdominal pain, diarrhea, constipation, melena, hematochezia - Medication Medications: Active Medications Generic Name Dose Route Start Last Admin Trade Name Freq PRN Reason Stop Dose Admin Aspirin 81 mg 07/13/20 09:00 07/14/20 08:41 Aspirin 81 Mg Enteric Coated Tablet PO 81 mg DAILY REJI Administration Atorvastatin Calcium 80 mg 07/12/20 21:00 07/13/20 20:54 Atorvastatin Calcium 40 Mg Tab PO 80 mg HS REJI Administration Ezetimibe 10 mg 07/13/20 09:00 07/14/20 08:41 Ezetimibe 10 Mg Tab PO 10 mg DAILY REJI Administration Epoetin Lee-epbx 10,000 unit 07/12/20 12:00 07/12/20 14:02 Epoetin Lee-Epbx (Esrd) 10,000 Unit/Ml Vial SC 10,000 unit Q7D REJI Administration Insulin Human Lispro 0 units 07/12/20 03:30 07/14/20 18:19 Humalog 300 Units/3 Ml Vial SC 2 unit .MILD SLIDING SCALE PRN Administration Mild Correctional Scale Insulin Human Lispro 0 units 07/12/20 03:30 07/12/20 22:06 Humalog 300 Units/3 Ml Vial SC 2 units .BEDTIME SLIDING SC PRN Administration Bedtime Correctional Scale Pantoprazole Sodium 40 mg 07/12/20 09:00 07/14/20 08:42 Pantoprazole 40 Mg Vial IVP 40 mg Q12HR REJI Administration Sodium Chloride 10 ml 07/12/20 04:00 07/13/20 20:54 Sodium Chloride 0.9% (Pf) 10 Ml Vial FS 10 ml PRN PRN Administration RECONSTITUTION Sodium Chloride 10 ml 07/12/20 11:10 07/13/20 20:54 Flush - Normal Saline 10 Ml Syringe IVF 10 ml PRN PRN Administration Saline Flush Hospitalist Exam Vitals: Vital Signs (12 hours) Temp Pulse Pulse Resp BP BP Pulse Ox 07/14/20 17:06 97.8 F 94 23 H 96/54 L 94 L 07/14/20 11:35 97.9 F 88 18 98/50 L 93 L 07/14/20 10:30 96 107/53 L 07/14/20 08:38 98.0 F 104 H 18 107/53 L 99 Pulse Ox 07/14/20 17:06 07/14/20 11:35 07/14/20 10:30 99 07/14/20 08:38 Weight Weight 221 lb 5.506 oz General Appearance: awake alert Eye: anicteric sclera ENT: moist mucosa Neck: supple Heart: irregular Respiratory: CTAB Gastrointestinal: soft, non-tender Skin: no rashes Psychiatric: normal affect, normal behavior Hosp A/P - Plan Chest pain Improved ESRD Dialysis per nephrology service Atrial flutter For cardioversion on Thursday Melena stools Secondary to duodenal ulcers. Aspirin has been started Eliquis will be started after cardioversion
[2020-07-14] MEDS: Atorvastatin Calcium 40 MG TAB PO SCH (20:16)
[2020-07-15 04:48] LABS: #Basophils 0.1 thou/uL (0.0-0.2); #Eosinphils 0.1 thou/uL (0.0-0.7); #Lymphocytes 1.3 thou/uL (1.20-3.40); #Monocytes 0.6 thou/uL (0.11-0.59); #Neutrophils 2.6 thou/uL (1.40-6.50); %Basophils 1.1 % (0.0-1.0); %Lymphocytes 28.3 % (21.0-51.0); %Monocytes 13.1 % (0.0-10.0); %Neutrophils 55.5 % (42.0-75.0); Hemoglobin 7.5 g/dL (12.0-16.0); Mean Corpuscular HGB CONC 31.7 g/dL (32.0-36.0); Mean Corpuscular Hemoglobin 32.5 pg (27.0-31.0); Mean Platelet Volume 8.6 fL (7.4-10.4); Platelet Count 188 thou/uL (130-400); RBC Distribution Width 17.1 % (11.5-14.5); White Blood Cell (WBC) Count 4.7 thou/uL (4.8-10.8)
[2020-07-15 05:07] LABS: Anion Gap 16 mmol/L (10-20); BUN (Urea Nitrogen) 43 mg/dL (9.8-20.1); Calc. Creatinine Clearance 11 mL/min (70-130); Calcium 8.6 mg/dL (7.8-10.44); Carbon Dioxide 26 mmol/L (23-31); Chloride 101 mmol/L (98-107); Glucose 349 mg/dL (83-110); Potassium 5.3 mmol/L (3.5-5.1); Sodium 138 mmol/L (136-145)
[2020-07-15] MEDS: HumaLOG 300 UNITS/3 ML VIAL SC PRN ×3 (05:37→18:12)
[2020-07-15] MEDS: Ezetimibe 10 MG TAB PO SCH (09:08)
[2020-07-15] MEDS: Aspirin 81 mg Enteric Coated Tablet PO SCH (09:08)
[2020-07-15] MEDS: Pantoprazole 40 MG VIAL IVP SCH ×2 (09:08→21:03)
--- NOTE | 2020-07-15 11:58 | PRG ---
DATE OF SERVICE: 07/15/2020 SUBJECTIVE: The patient is feeling well. She had a brown stool yesterday. She is having no nausea or vomiting. No abdominal pain. OBJECTIVE: VITAL SIGNS: Temperature 97.7, pulse 92, respiratory rate 20, blood pressure 137/60. CHEST: Clear. CARDIOVASCULAR: Regular rate and rhythm. ABDOMEN: Soft, nontender without organomegaly or masses. LABORATORY DATA: Shows a hemoglobin of 7.5, hematocrit 23.6. Chemistry show potassium 5.3, BUN 43, creatinine 6.79. ASSESSMENT: 1. Multiple duodenal ulcers-clean white base low risk for a recurrent bleeding. 2. End-stage renal disease. 3. Coronary artery disease. 4. Atrial fibrillation. 5. Anemia. RECOMMENDATIONS: 1. Okay to resume anticoagulation if needed. 2. The patient to undergo cardioversion tomorrow. 3. Continue PPI. 4. NSAID avoidance. Job ID: [id number]
--- NOTE | 2020-07-15 18:19 | PDOC.HOSPP ---
- Subjective Encounter Date: 07/15/20 Encounter Time: 13:00 Subjective: Patient seen for follow-up regarding chest pain. Denies any chest pain today. - Objective Vital Signs & Weight: Vital Signs (12 hours) Temp Pulse Resp BP Pulse Ox 07/15/20 15:29 98.1 F 82 13 113/53 L 93 L 07/15/20 11:28 98.0 F 73 18 113/58 L 97 07/15/20 07:20 95 07/15/20 07:10 97.7 F 92 20 137/60 95 Weight Weight 223 lb I&O: 07/14/20 07/15/20 07/16/20 06:59 06:59 06:59 Intake Total 960 1430 Output Total 275 100 Balance 685 1330 Result Diagrams: 07/15/20 04:15 07/15/20 04:15 Additional Labs: Accuchecks 07/15/20 07/15/20 07/14/20 10:39 05:26 20:32 POC Glucose 374 H 319 H 234 H EKG Reviewed by me: Yes (jean dykes on tele) Hospitalist ROS - Review of Systems Cardiovascular: denies: chest pain, palpitations, orthopnea, paroxysmal noc. dyspnea, edema, light headedness Gastrointestinal: denies: nausea, vomiting, abdominal pain, diarrhea, consti pation, melena, hematochezia - Medication Medications: Active Medications Generic Name Dose Route Start Last Admin Trade Name Freq PRN Reason Stop Dose Admin Aspirin 81 mg 07/13/20 09:00 07/15/20 09:08 Aspirin 81 Mg Enteric Coated Tablet PO 81 mg DAILY REJI Administration Atorvastatin Calcium 80 mg 07/12/20 21:00 07/14/20 20:16 Atorvastatin Calcium 40 Mg Tab PO 80 mg HS REJI Administration Ezetimibe 10 mg 07/13/20 09:00 07/15/20 09:08 Ezetimibe 10 Mg Tab PO 10 mg DAILY REJI Administration Epoetin Lee-epbx 10,000 unit 07/12/20 12:00 07/12/20 14:02 Epoetin Lee-Epbx (Esrd) 10,000 Unit/Ml Vial SC 10,000 unit Q7D REJI Administration Insulin Human Lispro 0 units 07/12/20 03:30 07/15/20 11:27 Humalog 300 Units/3 Ml Vial SC 6 unit .MILD SLIDING SCALE PRN Administration Mild Correctional Scale Insulin Human Lispro 0 units 07/12/20 03:30 07/12/20 22:06 Humalog 300 Units/3 Ml Vial SC 2 units .BEDTIME SLIDING SC PRN Administration Bedtime Correctional Scale Pantoprazole Sodium 40 mg 07/12/20 09:00 07/15/20 09:08 Pantoprazole 40 Mg Vial IVP 40 mg Q12HR REJI Administration Sodium Chloride 10 ml 07/12/20 04:00 07/13/20 20:54 Sodium Chloride 0.9% (Pf) 10 Ml Vial FS 10 ml PRN PRN Administration RECONSTITUTION Sodium Chloride 10 ml 07/12/20 11:10 07/13/20 20:54 Flush - Normal Saline 10 Ml Syringe IVF 10 ml PRN PRN Administration Saline Flush Hospitalist Exam Vitals: Vital Signs (12 hours) Temp Pulse Resp BP Pulse Ox 07/15/20 15:29 98.1 F 82 13 113/53 L 93 L 07/15/20 11:28 98.0 F 73 18 113/58 L 97 07/15/20 07:20 95 07/15/20 07:10 97.7 F 92 20 137/60 95 Weight Weight 223 lb General Appearance: awake alert Eye: anicteric sclera ENT: normocephalic atraumatic Neck: supple Heart: irregular Respiratory: CTAB Gastrointestinal: soft, non-tender Extremities: no cyanosis Skin: no rashes Musculoskeletal: no muscle wasting Psychiatric: normal affect, normal behavior Hosp A/P - Plan Chest pain Improved ESRD nephrology following Atrial flutter For cardioversion tomorrow Melena stools Secondary to duodenal ulcers. Aspirin has been started Eliquis will be started soon Dispo: to [facility] when stable
[2020-07-15] MEDS: Atorvastatin Calcium 40 MG TAB PO SCH (21:04)
[2020-07-15] MEDS: Apixaban 2.5 MG TAB PO SCH (21:04)
--- NOTE | 2020-07-16 08:34 | PRG ---
DATE OF SERVICE: 07/16/2020 SUBJECTIVE: Ms. Lehman is a 75-year-old white female with ESRD and currently on maintenance hemodialysis. She is currently undergoing a 3-hour hemodialysis. Fluid removal will be done only as tolerated. She initially came with chest pain and she ruled out for VT. She has also been seen by GI due to previous GI bleed. A planned CHRISTIAN is being considered with her ? The patient is quite anxious today. OBJECTIVE: VITAL SIGNS: Blood pressure 114/53, heart rate 91, respiratory rate 16, O2 saturation 93%, and temperature 97.7. GENERAL: Awake, alert, comfortable, anxious, not in distress. SKIN: Adequate turgor. HEENT: Slightly pale conjunctivae. Anicteric sclerae. NECK: No neck mass. No carotid bruits. No JVD. CHEST: No deformities. LUNGS: Decreased breath sounds. HEART: Normal sinus rhythm. No murmur. No gallops. No rubs. ABDOMEN: Globular, soft, and nontender. No masses. EXTREMITIES: No edema. No deformities. MEDICATIONS: Of July 16, 2020, was reviewed. LABORATORY DATA: Laboratories of July 15, 2020; white count 4.7, hemoglobin 7.5. Sodium 138, potassium 5.3, chloride 101, carbon dioxide 26, BUN 43, creatinine is 6.79, and calcium 8.6. On July 16, 2020; glucose 170. ASSESSMENT AND PLAN: 1. End-stage renal disease, stable. We will continue current hemodialysis regimen. Fluid removal as tolerated. We will do a 3-hour hemodialysis today per the patient's request. 2. Anemia. P.r.n. blood transfusion for hemoglobin less than 7. Continue weekly Epogen 10,000 units subcu every week. 3. Chest pain, resolved. Cardiology is following. Recheck CBC and basic metabolic panel in a.m. Job ID: [id number]
[2020-07-16] MEDS: Lorazepam 2 MG/ML VIAL SLOW IVP PRN (08:46)
[2020-07-16] MEDS ORDERED: PROPOFOL 200 MG/20 ML VIAL ONE (10:08)
[2020-07-16 12:23] LABS: Platelet Count 175 thou/uL (130-400)
[2020-07-16 12:24] LABS: #Basophils 0.1 thou/uL (0.0-0.2); #Eosinphils 0.1 thou/uL (0.0-0.7); #Lymphocytes 1.2 thou/uL (1.20-3.40); #Monocytes 0.5 thou/uL (0.11-0.59); #Neutrophils 2.5 thou/uL (1.40-6.50); %Basophils 1.3 % (0.0-1.0); %Eosinophils 1.6 % (0.0-10.0); %Lymphocytes 27.3 % (21.0-51.0); %Monocytes 11.6 % (0.0-10.0); %Neutrophils 58.2 % (42.0-75.0); Mean Corpuscular HGB CONC 31.9 g/dL (32.0-36.0); Mean Corpuscular Hemoglobin 32.6 pg (27.0-31.0); Mean Platelet Volume 8.4 fL (7.4-10.4); Platelet Count 176 thou/uL (130-400); RBC Distribution Width 17.3 % (11.5-14.5); Red Blood Cell (RBC) Count 2.44 mill/uL (4.20-5.40); White Blood Cell (WBC) Count 4.4 thou/uL (4.8-10.8)
[2020-07-16 12:47] LABS: Anion Gap 14 mmol/L (10-20); BUN (Urea Nitrogen) 20 mg/dL (9.8-20.1); Calc. Creatinine Clearance 22 mL/min (70-130); Calcium 8.4 mg/dL (7.8-10.44); Carbon Dioxide 30 mmol/L (23-31); Chloride 100 mmol/L (98-107); Glucose 146 mg/dL (83-110); Potassium 3.7 mmol/L (3.5-5.1); Sodium 140 mmol/L (136-145)
[2020-07-16] MEDS: Apixaban 2.5 MG TAB PO SCH ×2 (14:17→21:23)
[2020-07-16] MEDS: Pantoprazole 40 MG VIAL IVP SCH ×2 (14:18→21:24)
[2020-07-16] MEDS: Ezetimibe 10 MG TAB PO SCH (14:18)
[2020-07-16] MEDS: Aspirin 81 mg Enteric Coated Tablet PO SCH (14:18)
--- NOTE | 2020-07-16 18:14 | PDOC.HOSPP ---
- Subjective Encounter Date: 07/16/20 Encounter Time: 11:00 Subjective: Seen for follow-up regarding chest pain. She denies any fevers or chills. - Objective Vital Signs & Weight: Vital Signs (12 hours) Temp Pulse Resp BP Pulse Ox 07/16/20 15:59 98.1 F 109 H 17 102/50 L 97 07/16/20 14:10 97.5 F L 112 H 18 126/61 100 07/16/20 12:10 97.7 F 91 16 116/54 L 100 07/16/20 07:30 97.6 F 88 16 109/63 100 Weight Weight 223 lb I&O: 07/15/20 07/16/20 07/17/20 06:59 06:59 06:59 Intake Total 1430 Output Total 100 250 Balance 1330 -250 Result Diagrams: 07/16/20 12:12 07/16/20 12:12 Additional Labs: Accuchecks 07/16/20 07/16/20 07/15/20 10:28 05:43 21:04 POC Glucose 139 H 170 H 198 H 07/15/20 17:28 POC Glucose 182 H I reviewed patient's labs and MAR EKG Reviewed by me: Yes (Uriel dykes on telemetry) Hospitalist ROS - Review of Systems Genitourinary: denies: dysuria, frequency, incontinence, hematuria, retention Musculoskeletal: denies: neck pain, shoulder pain, arm pain, back pain, hand pain, leg pain, foot pain - Medication Medications: Active Medications Generic Name Dose Route Start Last Admin Trade Name Freq PRN Reason Stop Dose Admin Apixaban 2.5 mg 07/15/20 21:00 07/16/20 14:17 Apixaban 2.5 Mg Tab PO 2.5 mg BID REJI Administration Aspirin 81 mg 07/13/20 09:00 07/16/20 14:18 Aspirin 81 Mg Enteric Coated Tablet PO 81 mg DAILY REJI Administration Atorvastatin Calcium 80 mg 07/12/20 21:00 07/15/20 21:04 Atorvastatin Calcium 40 Mg Tab PO 80 mg HS REJI Administration Ezetimibe 10 mg 07/13/20 09:00 07/16/20 14:18 Ezetimibe 10 Mg Tab PO 10 mg DAILY REJI Administration Epoetin Lee-epbx 10,000 unit 07/12/20 12:00 07/12/20 14:02 Epoetin Lee-Epbx (Esrd) 10,000 Unit/Ml Vial SC 10,000 unit Q7D REJI Administration Insulin Human Lispro 0 units 07/12/20 03:30 07/15/20 18:12 Humalog 300 Units/3 Ml Vial SC 2 unit .MILD SLIDING SCALE PRN Administration Mild Correctional Scale Insulin Human Lispro 0 units 07/12/20 03:30 07/12/20 22:06 Humalog 300 Units/3 Ml Vial SC 2 units .BEDTIME SLIDING SC PRN Administration Bedtime Correctional Scale Lorazepam 0.5 mg 07/16/20 08:11 07/16/20 08:46 Lorazepam 2 Mg/Ml Vial SLOW IVP 0.5 mg Q6H PRN Administration Anxiety/Agitation Pantoprazole Sodium 40 mg 07/12/20 09:00 07/16/20 14:18 Pantoprazole 40 Mg Vial IVP 40 mg Q12HR REJI Administration Sodium Chloride 10 ml 07/12/20 04:00 07/13/20 20:54 Sodium Chloride 0.9% (Pf) 10 Ml Vial FS 10 ml PRN PRN Administration RECONSTITUTION Sodium Chloride 10 ml 07/12/20 11:10 07/13/20 20:54 Flush - Normal Saline 10 Ml Syringe IVF 10 ml PRN PRN Administration Saline Flush Hospitalist Exam Vitals: Vital Signs (12 hours) Temp Pulse Resp BP Pulse Ox 07/16/20 15:59 98.1 F 109 H 17 102/50 L 97 07/16/20 14:10 97.5 F L 112 H 18 126/61 100 07/16/20 12:10 97.7 F 91 16 116/54 L 100 07/16/20 07:30 97.6 F 88 16 109/63 100 Weight Weight 223 lb General Appearance: awake alert Eye: anicteric sclera ENT: moist mucosa Neck: supple Heart: irregular Respiratory: CTAB Gastrointestinal: soft Skin: no rashes Psychiatric: normal affect, normal behavior Hosp A/P - Plan Chest pain Improved ESRD nephrology following for dialysis Atrial flutter For cardioversion today Melena stools Secondary to duodenal ulcers. Aspirin has been started Eliquis will be started soon Dispo: to [facility] when stable
[2020-07-16] MEDS: HumaLOG 300 UNITS/3 ML VIAL SC PRN (18:22)
[2020-07-16] MEDS: Atorvastatin Calcium 40 MG TAB PO SCH (21:23)
[2020-07-17] MEDS: Lorazepam 2 MG/ML VIAL SLOW IVP PRN (00:35)
[2020-07-17 05:08] LABS: #Eosinphils 0.1 thou/uL (0.0-0.7); #Lymphocytes 1.3 thou/uL (1.20-3.40); #Monocytes 0.5 thou/uL (0.11-0.59); #Neutrophils 2.3 thou/uL (1.40-6.50); %Basophils 1.1 % (0.0-1.0); %Eosinophils 1.2 % (0.0-10.0); %Lymphocytes 30.9 % (21.0-51.0); %Monocytes 11.5 % (0.0-10.0); %Neutrophils 55.2 % (42.0-75.0); Hemoglobin 7.7 g/dL (12.0-16.0); Mean Corpuscular HGB CONC 32.9 g/dL (32.0-36.0); Mean Corpuscular Hemoglobin 33.6 pg (27.0-31.0); Mean Platelet Volume 8.6 fL (7.4-10.4); Platelet Count 180 thou/uL (130-400); RBC Distribution Width 17.5 % (11.5-14.5); Red Blood Cell (RBC) Count 2.29 mill/uL (4.20-5.40); White Blood Cell (WBC) Count 4.2 thou/uL (4.8-10.8)
[2020-07-17 05:25] LABS: Anion Gap 15 mmol/L (10-20); BUN (Urea Nitrogen) 32 mg/dL (9.8-20.1); Calc. Creatinine Clearance 16 mL/min (70-130); Calcium 8.2 mg/dL (7.8-10.44); Carbon Dioxide 26 mmol/L (23-31); Chloride 102 mmol/L (98-107); Glucose 225 mg/dL (83-110); Potassium 4.8 mmol/L (3.5-5.1); Sodium 138 mmol/L (136-145)
[2020-07-17] MEDS: HumaLOG 300 UNITS/3 ML VIAL SC PRN ×3 (06:29→17:26)
--- NOTE | 2020-07-17 06:49 | OP ---
DATE OF PROCEDURE: 07/16/2020 STUDY PERFORMED: Transesophageal echocardiogram. INDICATIONS FOR PROCEDURE: A 75-year-old woman with congestive heart failure and tricuspid regurgitation. DESCRIPTION OF PROCEDURE: The patient was taken to the PACU. The patient was sedated by Anesthesiology. A transesophageal probe was placed into the distal esophagus and stomach. Echocardiographic images were obtained. The transesophageal probe was removed. FINDINGS: 1. Normal left ventricular systolic function. 2. Left atrial enlargement. 3. The right atrium is markedly dilated. 4. The right ventricle is dilated. 5. Severe tricuspid regurgitation. 6. Mild mitral regurgitation. 7. Mild aortic stenosis. 8. No thrombus noted in the left atrium or left atrial appendage. 9. Atherosclerotic debris in the descending aorta. IMPRESSION: Severe tricuspid regurgitation with right ventricular enlargement and no formed thrombus in the left atrium or left atrial appendage. Job ID: [id number]
--- NOTE | 2020-07-17 06:50 | OP ---
DATE OF PROCEDURE: 07/16/2020 PROCEDURE PERFORMED: Electrical cardioversion. INDICATIONS FOR PROCEDURE: A 75-year-old woman with paroxysmal atrial fibrillation. DESCRIPTION OF PROCEDURE: The patient was taken to the PACU. The patient was sedated by Anesthesiology. The patient was shocked with 200 joules of synchronized electricity on 2 occasions. The patient remained in atrial fibrillation. IMPRESSION: Unsuccessful electrical cardioversion. Job ID: [id number]
--- NOTE | 2020-07-17 09:04 | PRG ---
DATE OF SERVICE: 07/17/2020 SUBJECTIVE: Ms. Lehman is a 75-year-old white female with ESRD and currently on maintenance hemodialysis. She underwent an unsuccessful electrical cardioversion. This was done by Dr. Sauer. She has no new complaints today. No chest pain or shortness of breath. OBJECTIVE: VITAL SIGNS: Blood pressure is noted at 114/55, heart rate 91, respiratory rate 19, temperature 98.2, O2 saturation 100%. GENERAL: The patient is awake, comfortable, not in overt distress. SKIN: Adequate turgor. HEENT: She has a slightly pale conjunctivae. Anicteric sclerae. No neck mass. No carotid bruits. No JVD. CHEST: No deformities. LUNGS: Clear breath sounds. No wheezing. No crackles. HEART: Irregularly irregular. No murmur. No gallops. No rubs. ABDOMEN: Globular, soft, nontender. No masses. EXTREMITIES: No edema. No deformities. MEDICATIONS: Medications of July 17, 2020, were reviewed. LABORATORY DATA: Laboratories of July 17, 2020; white count 4.2, hemoglobin 7.7. Sodium 138, potassium 4.8, chloride 102, carbon dioxide 26, BUN 32, creatinine 4.72, glucose 225, calcium 8.2. ASSESSMENT AND PLAN: 1. End-stage renal disease, stable. Continuing Thursday, Thursday, Thursday hemodialysis regimen. The patient is quite anxious during dialysis treatment, did receive Ativan. Fluid removal only as tolerated. There is no indication for an emergent hemodialysis today. The patient looks euvolemic. In addition, potassium is within normal. We will schedule her back for dialysis tomorrow. 2. Atrial fibrillation - status post cardioversion - this was not successful. Cardiology is following. 3. Anemia. Continuing weekly Epogen. Recheck CBC, basic metabolic in a.m. Job ID: [id number]
[2020-07-17] MEDS: Ezetimibe 10 MG TAB PO SCH (10:08)
[2020-07-17] MEDS: Apixaban 2.5 MG TAB PO SCH ×2 (10:08→20:32)
[2020-07-17] MEDS: Pantoprazole 40 MG VIAL IVP SCH ×2 (10:08→20:32)
[2020-07-17] MEDS: Aspirin 81 mg Enteric Coated Tablet PO SCH (10:08)
[2020-07-17] MEDS ORDERED: Midodrine HCl 5 MG TAB PO SCH ×2 (10:25→10:45)
--- NOTE | 2020-07-17 12:30 | CON ---
DATE OF CONSULTATION: 07/17/2020 REASON FOR CONSULTATION: I am visiting Ms. Lehman at our [facility] telemetry floor for an electrophysiology consultation. Her problems are: 1. Persisting atrial fibrillation with rapid ventricular rate. a. Atrial fibrillation with controlled ventricular rates in 12/2018 and subsequently. b. Failed cardioversion on 07/16/2020. 2. Chronic diastolic heart failure. a. 2D echo from 12/16/2018 reveals LVEF 60% to 65%, [id number] MR, [id number] TR, pulmonary hypertension at 60 mmHg. b. CHRISTIAN from 07/16/2020 shows normal LV systolic function, biatrial enlargement, RV dilation, severe TR, and mild MR. 3. Coronary artery disease. a. History of CABG in 2006. 4. End-stage renal disease, on hemodialysis. 5. Obesity with BMI of 35. 6. Pulmonary disease. a. Chronic COPD. b. Recent COVID pneumonia. c. Obstructive sleep apnea. 7. Orthostatic hypotension, on midodrine. 8. History of GI bleed, requiring transfusions. a. EGD from 07/12/2020 revealed duodenal ulcers, nonbleeding, on PPI. ALLERGIES: SULFA, CODEINE, AND MORPHINE. MEDICATIONS: At home, included: 1. Eliquis. 2. Lipitor. 3. Insulin. 4. Calcitriol. 5. Midodrine 5 mg p.o. t.i.d. 6. Renvela. 7. Pantoprazole. 8. Darbepoetin jeremy. 9. Ciprofloxacin. 10. Fluticasone. SUBJECTIVE: Ms. Lehman was admitted on 07/12 with chest pain. She was noted to be in atrial fibrillation with somewhat elevated heart rates. Oxygen saturation was at 85% with bilateral infiltrates from recent COVID pneumonia. Since then, she has been evaluated by GI with endoscopy as above. She continued hemodialysis. Weight seems to be unchanged from admission and is not equal. Dr. Clement and Dr. Sauer evaluated the patient and she underwent a CHRISTIAN-guided cardioversion yesterday. No clots were found. 200 joules did not convert the patient back to sinus rhythm. Subsequently, on the monitor, transient sinus rhythm is seen. Quickly converted back to atrial fibrillation. She currently denies dizziness or loss of consciousness. No stroke-like symptoms. No neurological deficits. No fever, chills, or cough. REVIEW OF SYSTEMS: Rest of 12-point review of systems is otherwise unremarkable. PAST MEDICAL HISTORY: As above. She also has history of diabetes. EKG has a concern of bifascicular block. SOCIAL HISTORY: The patient has a son who is the medical decision maker. No current history of smoking, EtOH, or drug abuse. Used to smoke in the past. She lives in a shelter facility. PAST MEDICAL HISTORY: Significant for; 1. ESRD, on dialysis. 2. Hypertension. 3. Carotid artery disease. 4. COPD. 5. Coronary artery disease, bypass grafting surgery. 6. Type 1 diabetes mellitus. 7. Right nephrectomy. 8. Left mastectomy. 9. CABG. 10. Hysterectomy. OBJECTIVE DATA: VITAL SIGNS: Blood pressure 114/55, heart rate 91, respirations 19, and temperature 98.2 degrees Fahrenheit. GENERAL: This is an alert and oriented obese woman, in no apparent distress. NECK: Supple. Jugular veins not distended. CHEST: Coarse and bilateral crackles are heard. HEART: Sounds are regular to rate and rhythm. A 3/6 holosystolic murmur is heard in the precordial area. PMI is nonpalpable. ABDOMEN: Benign. Bowel sounds are positive. No hepatosplenomegaly is palpable. EXTREMITIES: Lower extremities without edema. Pulses are diminished. NEUROLOGIC: The patient is nonfocal. MUSCULOSKELETAL: Without joint swelling or deformities. SKIN: Without rash. Left upper extremity AV fistula is in place. DATABASE: EKG on admission reveals atrial fibrillation with rates 102 beats per minute, bifascicular block is seen with RBBB, left anterior fascicular block, nonspecific ST-T changes. Subsequent telemetry strips reveal atrial fibrillation, occasionally organizing an atypical atrial flutter with more increased ventricular rates. Currently, ventricular rates are reasonably controlled short. A sinus rhythm was also seen yesterday, but quickly converted back to atrial fibrillation. LABORATORY DATA: White cell count is 4.2, hemoglobin 7.7, and platelet count is 180. Sodium 138, potassium 4.8, BUN is 32, creatinine was 4.72, CO2 is 26. Chest x-ray from 07/11/2020 reveals bilateral lung infiltrates concerning for COVID pneumonia. ASSESSMENT AND PLAN: Ms. Lehman is an unfortunate 75-year-old woman with multiple comorbidities including ESRD on HD, hypertension, diabetes, prior coronary artery bypass grafting surgery, diastolic heart failure, cor pulmonale with prior history of smoking and chronic COPD, obesity, and sleep apnea. She also has persisting atrial fibrillation at least since 12/2018. Her loss sinus rhythm appearing EKG was noted at that time with frequent PACs. Since then, atrial fibrillation mostly persisted. She did not respond well to the attempted cardioversion by Dr. Sauer and was back in atrial fibrillation, although transiently as seen short while she may have been in sinus rhythm, still with elevated heart rates. Unfortunately, possibly the elevated heart rate is partially related to her pulmonary status. Oxygen saturation is now adequate on oxygen supplementation only. Complicating the issues, the difficulty to control her ventricular rates due to her orthostatic hypotension as well as renal disease and pulmonary disease, which make administration of AV gallo blocking agents complicated. She is also a poor candidate for antiarrhythmic agents due to her pulmonary disease, diastolic heart failure, and renal insufficiency. Neither amiodarone, Multaq, sotalol, or dofetilide are good options to maintain sinus rhythm. Due to her recent anemia and gastrointestinal bleed possibly due to the duodenal ulcers, she is a poor candidate for chronic anticoagulation or any invasive ablative procedures. I discussed these issues with her. Clearly, medical therapy would be most optimal for her, but it will be difficult to find the right combination as discussed above. If above fails to control her ventricular rates, pacemaker implantation with ablation is a potential option, although due to her end-stage renal disease, she carries longer term risk of device infection. I discussed these issues with her. We will discuss further with Dr. Sauer. For now, we would continue monitoring her heart rates, which are reasonably controlled. Clearly, she could also hopefully improve from her pulmonary status with resolving COVID pneumonia. Regarding anticoagulation, she has a markedly elevated CHADS-VASc score with her age, gender, cardiovascular disease, heart failure, hypertension, diabetes at 7. Continued anticoagulation is highly recommended, currently a lower-dose Eliquis. Long-term Watchman device placement could be a consideration for her. Thank you for allowing me to participate in care of this patient. Job ID: [id number] [facility]Tom
[2020-07-17] MEDS: Midodrine HCl 5 MG TAB PO SCH ×2 (15:08→20:32)
[2020-07-17] MEDS ORDERED: Zolpidem Tartrate 5 MG TAB PO PRN (17:31)
--- NOTE | 2020-07-17 17:34 | PDOC.HOSPP ---
- Subjective Encounter Date: 07/17/20 Encounter Time: 10:30 Subjective: Patient seen for follow-up for chest pain. She denies any chest pain today. - Objective Vital Signs & Weight: Vital Signs (12 hours) Temp Pulse Pulse Pulse Resp BP BP 07/17/20 15:05 98.2 F 78 17 07/17/20 11:57 87 07/17/20 10:56 97.6 F 84 18 07/17/20 09:08 75 80 100/51 L 82/43 L 07/17/20 08:00 07/17/20 07:15 98.2 F 91 19 BP Pulse Ox 07/17/20 15:05 107/54 L 99 07/17/20 11:57 102/51 L 07/17/20 10:56 88/49 L 94 L 07/17/20 09:08 07/17/20 08:00 94 L 07/17/20 07:15 114/55 L 100 Weight Weight 222 lb 10.67 oz I&O: 07/16/20 07/17/20 07/18/20 06:59 06:59 06:59 Intake Total 720 Output Total 250 275 Balance -250 445 Result Diagrams: 07/17/20 04:37 07/17/20 04:37 Additional Labs: Accuchecks 07/17/20 07/17/20 07/17/20 16:39 10:05 05:31 POC Glucose 211 H 264 H 228 H 07/16/20 21:38 POC Glucose 176 H Labs and MAR reviewed by me EKG Reviewed by me: Yes (Uriel dykes on telemetry) Hospitalist ROS - Review of Systems Cardiovascular: denies: chest pain, palpitations, orthopnea, paroxysmal noc. dyspnea, edema, light headedness Gastrointestinal: denies: nausea, vomiting, abdominal pain, diarrhea, constipation, melena, hematochezia - Medication Medications: Active Medications Generic Name Dose Route Start Last Admin Trade Name Freq PRN Reason Stop Dose Admin Apixaban 2.5 mg 07/15/20 21:00 07/17/20 10:08 Apixaban 2.5 Mg Tab PO 2.5 mg BID REJI Administration Aspirin 81 mg 07/13/20 09:00 07/17/20 10:08 Aspirin 81 Mg Enteric Coated Tablet PO 81 mg DAILY REJI Administration Atorvastatin Calcium 80 mg 07/12/20 21:00 07/16/20 21:23 Atorvastatin Calcium 40 Mg Tab PO 80 mg HS REJI Administration Ezetimibe 10 mg 07/13/20 09:00 07/17/20 10:08 Ezetimibe 10 Mg Tab PO 10 mg DAILY REJI Administration Epoetin Lee-epbx 10,000 unit 07/12/20 12:00 07/12/20 14:02 Epoetin Lee-Epbx (Esrd) 10,000 Unit/Ml Vial SC 10,000 unit Q7D REJI Administration Insulin Human Lispro 0 units 07/12/20 03:30 07/17/20 17:26 Humalog 300 Units/3 Ml Vial SC 3 unit .MILD SLIDING SCALE PRN Administration Mild Correctional Scale Insulin Human Lispro 0 units 07/12/20 03:30 07/12/20 22:06 Humalog 300 Units/3 Ml Vial SC 2 units .BEDTIME SLIDING SC PRN Administration Bedtime Correctional Scale Lorazepam 0.5 mg 07/16/20 08:11 07/17/20 00:35 Lorazepam 2 Mg/Ml Vial SLOW IVP 0.5 mg Q6H PRN Administration Anxiety/Agitation Midodrine 5 mg 07/17/20 15:00 07/17/20 15:08 Midodrine Hcl 5 Mg Tab PO 5 mg TID REJI Administration Pantoprazole Sodium 40 mg 07/12/20 09:00 07/17/20 10:08 Pantoprazole 40 Mg Vial IVP 40 mg Q12HR REJI Administration Sodium Chloride 10 ml 07/12/20 04:00 07/13/20 20:54 Sodium Chloride 0.9% (Pf) 10 Ml Vial FS 10 ml PRN PRN Administration RECONSTITUTION Sodium Chloride 10 ml 07/12/20 11:10 07/13/20 20:54 Flush - Normal Saline 10 Ml Syringe IVF 10 ml PRN PRN Administration Saline Flush Hospitalist Exam Vitals: Vital Signs (12 hours) Temp Pulse Pulse Pulse Resp BP BP 07/17/20 15:05 98.2 F 78 17 07/17/20 11:57 87 07/17/20 10:56 97.6 F 84 18 07/17/20 09:08 75 80 100/51 L 82/43 L 07/17/20 08:00 07/17/20 07:15 98.2 F 91 19 BP Pulse Ox 07/17/20 15:05 107/54 L 99 07/17/20 11:57 102/51 L 07/17/20 10:56 88/49 L 94 L 07/17/20 09:08 07/17/20 08:00 94 L 07/17/20 07:15 114/55 L 100 Weight Weight 222 lb 10.67 oz General Appearance: awake alert Eye: anicteric sclera ENT: moist mucosa Neck: supple Heart: irregular Respiratory: CTAB Gastrointestinal: soft, non-tender Skin: no rashes Psychiatric: normal affect Hosp A/P - Plan Chest pain Patient reports improvement. ESRD Dialysis per nephrology service Atrial flutter Status post cardioversion, patient went back into A. fib Melena stools Secondary to duodenal ulcers. Aspirin has been started Eliquis has been started. Dispo: to [place] when stable
[2020-07-17] MEDS: Atorvastatin Calcium 40 MG TAB PO SCH (20:32)
[2020-07-18] MEDS: HumaLOG 300 UNITS/3 ML VIAL SC PRN ×4 (00:59→18:40)
[2020-07-18 04:11] LABS: #Eosinphils 0.1 thou/uL (0.0-0.7); #Lymphocytes 1.9 thou/uL (1.20-3.40); #Monocytes 0.6 thou/uL (0.11-0.59); #Neutrophils 2.7 thou/uL (1.40-6.50); %Basophils 0.9 % (0.0-1.0); %Eosinophils 1.5 % (0.0-10.0); %Lymphocytes 36.1 % (21.0-51.0); %Monocytes 11.5 % (0.0-10.0); Hemoglobin 7.6 g/dL (12.0-16.0); Mean Corpuscular HGB CONC 32.3 g/dL (32.0-36.0); Mean Corpuscular Hemoglobin 33.2 pg (27.0-31.0); Mean Platelet Volume 8.8 fL (7.4-10.4); Platelet Count 172 thou/uL (130-400); RBC Distribution Width 17.3 % (11.5-14.5); White Blood Cell (WBC) Count 5.3 thou/uL (4.8-10.8)
[2020-07-18 04:31] LABS: Anion Gap 12 mmol/L (10-20); BUN (Urea Nitrogen) 44 mg/dL (9.8-20.1); Calc. Creatinine Clearance 13 mL/min (70-130); Calcium 8.2 mg/dL (7.8-10.44); Carbon Dioxide 27 mmol/L (23-31); Chloride 101 mmol/L (98-107); Glucose 178 mg/dL (83-110); Potassium 4.4 mmol/L (3.5-5.1); Sodium 136 mmol/L (136-145)
--- NOTE | 2020-07-18 09:32 | PRG ---
DATE OF SERVICE: 07/18/2020 SUBJECTIVE: Ms. Lehman is a 75-year-old white female, followed up by the Renal Service for management of her ESRD as well as maintenance hemodialysis. She is now scheduled for dialysis. She asked for diazepam, but I told her she should not take this on a regular basis. She agreed to do that. She will try to stay in the dialysis treatment. No complaints of chest pain or shortness of breath. Occasional anxiety. OBJECTIVE: VITAL SIGNS: Blood pressure 117/56, heart rate 84, respiratory rate 16, temperature 97.6, and O2 saturation 95% on room air. GENERAL: Awake, alert, comfortable, not in distress. SKIN: Adequate turgor. HEENT: Slightly pale conjunctivae. Anicteric sclerae. NECK: No neck mass. No carotid bruits. No JVD. CHEST: No deformities. LUNGS: Clear breath sounds. No wheezing. No crackles. HEART: Normal sinus rhythm. No murmurs, gallops, or rubs. ABDOMEN: Globular, soft, nontender. No masses. EXTREMITIES: No edema. No deformities. MEDICATIONS: Medications of July 18, 2020, were reviewed. LABORATORY DATA: Laboratories of July 18, 2020; white count 5.3, hemoglobin 7.6. Sodium 136, potassium 4.4, chloride 101, carbon dioxide 27, BUN 44, creatinine 5.95, calcium 8.2. ASSESSMENT AND PLAN: 1. End-stage renal disease, stable, continuing current Thursday, Thursday, and Thursday hemodialysis of 3 hours each treatment. Fluid removal only as tolerated. 2. Anemia-stable. Continue weekly Epogen of 10,000 units subcu q.week. Please note, this patient is status post gastrointestinal bleed/upper GI endoscopy showed no active bleeding. 3. Anxiety. Continue supportive care. Job ID: [id number]
--- NOTE | 2020-07-18 10:33 | PDOC.EP ---
- Subjective Date: 07/18/20 Time: 10:28 Interval History: Feels fair overall. No significant changes overnight - Review of Systems Constitutional: denies: chills, fever, malaise, sweats, weakness, other Respiratory: reports: shortness of breath, SOB with excertion (chronic). denies: cough, dry, hemoptysis, wheezing Cardiology: denies: chest pain, edema, heart racing, light headedness, palpitations Gastrointestinal: denies: abdominal pain, constipation, vomitting Musculoskeletal: denies: falls, neck pain, shoulder pain, leg pain, foot pain - Objective Allergies/Adverse Reactions: Allergies Allergy/AdvReac Type Severity Reaction Status Date / Time Sulfa (Sulfonamide Allergy Nausea Verified 07/12/20 03:03 Antibiotics) codeine AdvReac Intermediate Nausea Verified 07/12/20 03:03 morphine AdvReac Intermediate Nausea Verified 07/12/20 03:03 Current Medications Apixaban (Apixaban 2.5 Mg Tab) 2.5 mg PO BID [facility] Last Admin: 07/17/20 20:32 Dose: 2.5 mg Documented by: Aspirin (Aspirin 81 Mg Enteric Coated Tablet) 81 mg PO DAILY [facility] Last Admin: 07/17/20 10:08 Dose: 81 mg Documented by: Atorvastatin Calcium (Atorvastatin Calcium 40 Mg Tab) 80 mg PO [facility] Last Admin: 07/17/20 20:32 Dose: 80 mg Documented by: Dextrose/Water (Dextrose 50% Abboject 50 Ml Syringe) 25 gm SLOW IVP PRN PRN PRN Reason: Hypoglycemia Ezetimibe (Ezetimibe 10 Mg Tab) 10 mg PO DAILY [facility] Last Admin: 07/17/20 10:08 Dose: 10 mg Documented by: Epoetin Lee-epbx (Epoetin Lee-Epbx (Esrd) 10,000 Unit/Ml Vial) 10,000 unit SC Q7D [facility] Last Admin: 07/12/20 14:02 Dose: 10,000 unit Documented by: Glucagon (Glucagon 1 Mg/Ml Vial) 1 mg IM PRN PRN PRN Reason: Hypoglycemia Dextrose/Water (D5w) 1,000 mls @ 0 mls/hr IV .Q0M PRN PRN Reason: Hypoglycemia Insulin Human Lispro (Humalog 300 Units/3 Ml Vial) 0 units SC .MILD SLIDING SCALE PRN PRN Reason: Mild Correctional Scale Last Admin: 07/18/20 05:56 Dose: 2 unit Documented by: Insulin Human Lispro (Humalog 300 Units/3 Ml Vial) 0 units SC .BEDTIME SLIDING SC PRN PRN Reason: Bedtime Correctional Scale Last Admin: 07/18/20 00:59 Dose: 2 units Documented by: Lorazepam (Lorazepam 2 Mg/Ml Vial) 0.5 mg SLOW IVP Q6H PRN PRN Reason: Anxiety/Agitation Last Admin: 07/17/20 00:35 Dose: 0.5 mg Documented by: Metoprolol Succinate (Metoprolol Succinate Xl 25 Mg Tab) 12.5 mg PO HS [facility] Last Admin: 07/17/20 20:32 Dose: 12.5 mg Documented by: Midodrine (Midodrine Hcl 5 Mg Tab) 5 mg PO TID [facility] Last Admin: 07/17/20 20:32 Dose: 5 mg Documented by: Nitroglycerin (Nitroglycerin 4.9 Gm Bottle) 0.4 gm SL Q5MIN PRN PRN Reason: Angina Pantoprazole Sodium (Pantoprazole 40 Mg Tab) 40 mg PO Q12HR [facility] Last Admin: 07/17/20 22:01 Dose: 40 mg Documented by: Sodium Chloride (Sodium Chloride 0.9% (Pf) 10 Ml Vial) 10 ml FS PRN PRN PRN Reason: RECONSTITUTION Last Admin: 07/13/20 20:54 Dose: 10 ml Documented by: Sodium Chloride (Flush - Normal Saline 10 Ml Syringe) 10 ml IVF PRN PRN PRN Reason: Saline Flush Last Admin: 07/13/20 20:54 Dose: 10 ml Documented by: Zolpidem Tartrate (Zolpidem Tartrate 5 Mg Tab) 5 mg PO HSPRN PRN PRN Reason: Insomnia Vital Signs & Weight: Vital Signs Temp Pulse Resp BP Pulse Ox 07/18/20 08:00 95 07/18/20 07:35 97.6 F 84 16 117/56 L 95 07/18/20 04:08 97.7 F 77 20 119/58 L 98 07/18/20 00:00 77 18 Weight 225 lb 13.69 oz I/O: I/O 07/17/20 07/18/20 07/19/20 06:59 06:59 06:59 Intake Total 720 840 Output Total 275 175 Balance 445 665 - Quality Measures Condition: Atrial Fibrillation/Flutter (hx or current) - Medication Contraindications No Anticoagulant reason: Medical contraindication - Physical Exam HEENT: mucus membranes moist, normocephaly Neck: supple neck, midline trachea, no lymphadenopathy Cardiology: regular rate, irregularly irregular Lungs: no wheeze, rales, rhonchi, decreased breath sounds Neurology: cranial nerve 2-12 intact, grossly intact, no lateralizing findings Abdomen: unremarkable, active bowel sounds, no pulsations/bruits Extremities: dry, strong pulses, warm, + edema B - Labs Result Diagrams: 07/18/20 03:54 07/18/20 03:54 - Assessment/Plan Assessment/Plan: 1. Persisting atrial fibrillation with rapid ventricular rate. a. Atrial fibrillation with controlled ventricular rates in 12/2018 and subsequently. b. Failed cardioversion on 07/16/2020. 2. Chronic diastolic heart failure. a. 2D echo from 12/16/2018 reveals LVEF 60% to 65%, [id number] MR, htdglzbx-[id number] TR, pulmonary hypertension at 60 mmHg. b. CHRISTIAN from 07/16/2020 shows normal LV systolic function, biatrial enlargement, RV dilation, severe TR, and mild MR. 3. Coronary artery disease. a. History of CABG in 2006. 4. End-stage renal disease, on hemodialysis. 5. Obesity with BMI of 35. 6. Pulmonary disease. a. Chronic COPD. b. Recent COVID pneumonia. c. Obstructive sleep apnea. 7. Orthostatic hypotension, on midodrine. 8. History of GI bleed, requiring transfusions. a. EGD from 07/12/2020 revealed duodenal ulcers, nonbleeding, on PPI. No good antiarrhythmic options with her COPD, ESRD, and CAD. Recent GIB requiring transfusion prevents OAC. Rate control is the best approach at this time. This is adequate with just low dose toprol XL 12.5mg QHS. If higher doses are required this may be difficult with her orthostatic hypotension, at which point a permanent pacemaker +/- AVJ ablation may be required. With her ESRD she is higher risk for infection with device implant, and I would exhaust medical options before pursuing this option. Watchman implant as OP could be an option only if she is able to safely remain on OAC for 2-3 months surrounding implant. Will follow.
[2020-07-18] MEDS: Apixaban 2.5 MG TAB PO SCH ×2 (12:54→20:23)
[2020-07-18] MEDS: Aspirin 81 mg Enteric Coated Tablet PO SCH (12:54)
[2020-07-18] MEDS: Midodrine HCl 5 MG TAB PO SCH ×3 (12:54→20:25)
[2020-07-18] MEDS: Ezetimibe 10 MG TAB PO SCH (12:54)
--- NOTE | 2020-07-18 12:56 | EKG ---
Test Reason : CP Blood Pressure : / mmHG Vent. Rate : 100 BPM Atrial Rate : 102 BPM P-R Int : 000 ms QRS Dur : 152 ms QT Int : 392 ms P-R-T Axes : 000 -32 -05 degrees QTc Int : 505 ms Atrial fibrillation Left axis deviation Right bundle branch block Voltage criteria for left ventricular hypertrophy Abnormal ECG #1 Confirmed by NIEVES HOBSON M.D. ([id number]), editor producer ODELL MCKEON ([id number]) on 07/18/2020 12:56:09 PM Referred By: Confirmed By:NIEVES HOBSON M.D.
--- NOTE | 2020-07-18 12:57 | EKG ---
Test Reason : REPEAT Blood Pressure : / mmHG Vent. Rate : 092 BPM Atrial Rate : 312 BPM P-R Int : 000 ms QRS Dur : 148 ms QT Int : 384 ms P-R-T Axes : 000 -35 -12 degrees QTc Int : 474 ms Atrial fibrillation Left axis deviation Right bundle branch block Voltage criteria for left ventricular hypertrophy Abnormal ECG #2 Confirmed by NIEVES HOBSON M.D. ([id number]), website/blog editor ODELL MCKEON ([id number]) on 07/18/2020 12:56:35 PM Referred By: Confirmed By:NIEVES HOBSON M.D.
[2020-07-18] MEDS ORDERED: Labetalol HCl 100 MG/20 ML VIAL ONE (12:59)
--- NOTE | 2020-07-18 13:03 | PDOC.DS.DS ---
Provider Date of Admission: 07/12/20 15:45 Date of Discharge: 07/18/20 Admitting Provider: Loki Ward MD Consultations: Cardiology (Dr. Sauer), Gastroentrology (Dr. Hawkins), Nephrology (Dr. Nevarez), Electrophysiology (Dr. Rolon) Primary Care Physician: Salo Bradshaw MD Course Hospital Course: Discharge diagnosis: 1. Chest pain 2. Chest pain most likely secondary to musculoskeletal etiology 3. Chronic atrial fibrillation 4. Duodenal ulcers 5. GI bleed 6. Hyperkalemia Hospital course: Patient is a pleasant 70-year-old lady who was admitted to the hospital on July 12, 2020 for chest pain. She was seen by cardiology service. She was also seen by nephrology service for maintenance dialysis and by gastroenterology service for melanotic stools. She underwent EGD on July 12. She was found to have multiple duodenal ulcers, all clean white-based without active bleeding or visible vessels. Otherwise, EGD was normal. It was recommended that she co ntinue PPI. Patient also has a history of atrial fibrillation. She was seen by electrophysiology service. On July 17, she underwent CHRISTIAN, which showed severe tricuspid regurgitation with right ventricular enlargement and no formed thrombus in the left atrium or left atrial appendage. CHRISTIAN was followed by cardioversion. Electrical cardioversion was unsuccessful. She has been restarted on apixaban and aspirin. She has also been started on dronedarone. She is being discharged to intermediate facility for further management. Many thanks for allowing me to participate in your patient's care. Please feel free to contact me with any questions or concerns. Discharge destination: care home facility Total amount of time spent coordinating this discharge: 25 minutes Lab Results: 07/18/20 03:54 07/18/20 03:54 Abnormal Lab Results - Last 48 hrs 07/17/20 04:37: BUN 32 H, Creatinine 4.72 H 07/17/20 04:37: WBC 4.2 L, RBC 2.29 L, Hgb 7.7 L, Hct 23.3 L, MCV 102.0 H, MCH 33.6 H, RDW 17.5 H, Monocytes % 11.5 H, Basophils % 1.1 H 07/18/20 03:54: BUN 44 H, Creatinine 5.95 H 07/18/20 03:54: RBC 2.30 L, Hgb 7.6 L, Hct 23.6 L, MCV 103.0 H, MCH 33.2 H, RDW 17.3 H, Monocytes % 11.5 H, Monocytes # 0.6 H Vitals: Vital Signs (12 hours) Temp Pulse Resp BP Pulse Ox 07/18/20 12:00 97.6 F 100 22 H 97/49 L 93 L 07/18/20 08:00 95 07/18/20 07:35 97.6 F 84 16 117/56 L 95 07/18/20 04:08 97.7 F 77 20 119/58 L 98 Weight Weight 225 lb 13.69 oz Physical Exam: The patient was seen and examined on the day of discharge. Patient denies chest pain or shortness of breath. Vital signs are stable. S1 and S2 are heard. Lungs are clear to auscultation bilaterally. Plan Home Medications: Medication Instructions Recorded Confirmed Type Nitroglycerin 0.4 mg SL Q5MIN PRN 09/11/14 07/12/20 History Atorvastatin Calcium [Lipitor] 80 mg PO DAILY 12/14/18 07/12/20 History Insulin Lispro [HumaLOG KwikPen] 0 unit SC TID-WM 06/29/19 07/12/20 History Calcitriol 1 cap PO DAILY 08/23/19 07/12/20 History Midodrine HCl [ProAmatine] 5 mg PO TID tab 06/22/20 07/12/20 Rx Sevelamer Carbonate [Renvela] 800 mg PO TID-WM tab 06/22/20 07/12/20 Rx Darbepoetin Lee in Polysorbat 40 mcg SC Q7D 07/12/20 07/12/20 History [Aranesp] Fluticasone/Vilanterol [Breo 1 puff INH QAM 07/12/20 07/12/20 History Ellipta] Insulin Detemir [Levemir] 5 units SC BID 07/12/20 07/12/20 History Pantoprazole [Protonix] 40 mg PO BID 07/12/20 07/12/20 History Apixaban [Eliquis] 2.5 mg PO BID tab 07/18/20 Rx Aspirin [Ecotrin Low Strength] 81 mg PO DAILY tab 07/18/20 Rx Ezetimibe [Zetia] 10 mg PO DAILY tab 07/18/20 Rx Metoprolol Succinate [Toprol XL] 12.5 mg PO HS tab 07/18/20 Rx Dronedarone HCl [Multaq] 400 mg PO BID-WM tab 07/19/20 Rx Allergies: Sulfa (Sulfonamide Antibiotics) Allergy (Verified 07/12/20 03:03) Nausea codeine Adverse Reaction (Intermediate, Verified 07/12/20 03:03) Nausea morphine Adverse Reaction (Intermediate, Verified 07/12/20 03:03) Nausea Referrals: [facility]* [Outside] (care home placement.) Avery Yang MD [Active] - (Call for GI questions) Salo Bradshaw MD [Primary Care Provider] - 3 Days Walter Cowan MD [Active] - (Accepting pcp at the [facility] of [facility] for care home placement.) Tony Sauer MD [Active] - (Call for questions) Emre Nevarez MD [Active] - (Call for questions) Disposition: HALFWAY FACILITY Quality CORE MEASURES:: N/A
--- NOTE | 2020-07-18 16:41 | PDOC.HOSPP ---
- Subjective Encounter Date: 07/18/20 Encounter Time: 10:00 Subjective: Patient seen in follow-up for chest pain. Denies any fevers or chills. - Objective Vital Signs & Weight: Vital Signs (12 hours) Temp Pulse Resp BP Pulse Ox 07/18/20 15:33 98.4 F 82 20 97/49 L 97 07/18/20 12:45 97.6 F 100 22 H 97/49 L 93 L 07/18/20 07:35 97.6 F 84 16 117/56 L 95 Weight Weight 225 lb 13.69 oz I&O: 07/17/20 07/18/20 07/19/20 06:59 06:59 06:59 Intake Total 720 840 Output Total 275 175 Balance 445 665 Result Diagrams: 07/18/20 03:54 07/18/20 03:54 Additional Labs: Accuchecks 07/18/20 07/18/20 07/18/20 11:07 05:26 00:55 POC Glucose 207 H 177 H 227 H 07/17/20 07/17/20 20:48 16:39 POC Glucose 323 H 211 H I reviewed patient's labs and MAR EKG Reviewed by me: Yes (Uriel dykes on telemetry) Hospitalist ROS - Review of Systems Cardiovascular: denies: chest pain, palpitations, orthopnea, paroxysmal noc. dyspnea, edema, light headedness Gastrointestinal: denies: nausea, vomiting, abdominal pain, diarrhea, constipation, melena, hematochezia - Medication Medications: Active Medications Generic Name Dose Route Start Last Admin Trade Name Freq PRN Reason Stop Dose Admin Apixaban 2.5 mg 07/15/20 21:00 07/18/20 12:54 Apixaban 2.5 Mg Tab PO 2.5 mg BID REJI Administration Aspirin 81 mg 07/13/20 09:00 07/18/20 12:54 Aspirin 81 Mg Enteric Coated Tablet PO 81 mg DAILY REJI Administration Atorvastatin Calcium 80 mg 07/12/20 21:00 07/17/20 20:32 Atorvastatin Calcium 40 Mg Tab PO 80 mg HS REJI Administration Ezetimibe 10 mg 07/13/20 09:00 07/18/20 12:54 Ezetimibe 10 Mg Tab PO 10 mg DAILY REJI Administration Epoetin Lee-epbx 10,000 unit 07/12/20 12:00 07/12/20 14:02 Epoetin Lee-Epbx (Esrd) 10,000 Unit/Ml Vial SC 10,000 unit Q7D REJI Administration Insulin Human Lispro 0 units 07/12/20 03:30 07/18/20 13:02 Humalog 300 Units/3 Ml Vial SC 3 unit .MILD SLIDING SCALE PRN Administration Mild Correctional Scale Insulin Human Lispro 0 units 07/12/20 03:30 07/18/20 00:59 Humalog 300 Units/3 Ml Vial SC 2 units .BEDTIME SLIDING SC PRN Administration Bedtime Correctional Scale Lorazepam 0.5 mg 07/16/20 08:11 07/17/20 00:35 Lorazepam 2 Mg/Ml Vial SLOW IVP 0.5 mg Q6H PRN Administration Anxiety/Agitation Metoprolol Succinate 12.5 mg 07/17/20 21:00 07/17/20 20:32 Metoprolol Succinate Xl 25 Mg Tab PO 12.5 mg HS REJI Administration Midodrine 5 mg 07/17/20 15:00 07/18/20 15:45 Midodrine Hcl 5 Mg Tab PO 5 mg TID REJI Administration Pantoprazole Sodium 40 mg 07/17/20 21:00 07/18/20 12:54 Pantoprazole 40 Mg Tab PO 40 mg Q12HR REJI Administration Sodium Chloride 10 ml 07/12/20 04:00 07/13/20 20:54 Sodium Chloride 0.9% (Pf) 10 Ml Vial FS 10 ml PRN PRN Administration RECONSTITUTION Sodium Chloride 10 ml 07/12/20 11:10 07/13/20 20:54 Flush - Normal Saline 10 Ml Syringe IVF 10 ml PRN PRN Administration Saline Flush Hospitalist Exam Vitals: Vital Signs (12 hours) Temp Pulse Resp BP Pulse Ox 07/18/20 15:33 98.4 F 82 20 97/49 L 97 07/18/20 12:45 97.6 F 100 22 H 97/49 L 93 L 07/18/20 07:35 97.6 F 84 16 117/56 L 95 Weight Weight 225 lb 13.69 oz General Appearance: awake alert Eye: anicteric sclera ENT: moist mucosa Neck: supple Heart: irregular Respiratory: CTAB Gastrointestinal: soft, non-distended Skin: no rashes Psychiatric: normal affect Hosp A/P - Plan Chest pain Improved ESRD Nephrology following for dialysis Atrial flutter Status post unsuccessful cardioversion Melena stools Secondary to duodenal ulcers. Aspirin has been started Eliquis has been started. Dispo: Patient is clinically stable. Family trying to decide if she will go to halfway or inpatient rehab.
[2020-07-18] MEDS: Atorvastatin Calcium 40 MG TAB PO SCH (20:24)
[2020-07-19 04:35] LABS: #Basophils 0.1 thou/uL (0.0-0.2); #Eosinphils 0.1 thou/uL (0.0-0.7); #Lymphocytes 1.6 thou/uL (1.20-3.40); #Monocytes 0.7 thou/uL (0.11-0.59); #Neutrophils 3.6 thou/uL (1.40-6.50); %Basophils 1.3 % (0.0-1.0); %Eosinophils 1.8 % (0.0-10.0); %Lymphocytes 26.3 % (21.0-51.0); %Neutrophils 58.6 % (42.0-75.0); Hemoglobin 7.9 g/dL (12.0-16.0); Mean Corpuscular HGB CONC 32.2 g/dL (32.0-36.0); Platelet Count 184 thou/uL (130-400); RBC Distribution Width 17.2 % (11.5-14.5); Red Blood Cell (RBC) Count 2.39 mill/uL (4.20-5.40); White Blood Cell (WBC) Count 6.1 thou/uL (4.8-10.8)
[2020-07-19 05:01] LABS: Anion Gap 12 mmol/L (10-20); BUN (Urea Nitrogen) 22 mg/dL (9.8-20.1); Calc. Creatinine Clearance 20 mL/min (70-130); Calcium 8.4 mg/dL (7.8-10.44); Carbon Dioxide 30 mmol/L (23-31); Chloride 101 mmol/L (98-107); Glucose 172 mg/dL (83-110); Potassium 4.2 mmol/L (3.5-5.1); Sodium 139 mmol/L (136-145)
[2020-07-19] MEDS: HumaLOG 300 UNITS/3 ML VIAL SC PRN ×3 (06:32→16:56)
[2020-07-19] MEDS: Midodrine HCl 5 MG TAB PO SCH ×2 (08:36→16:24)
[2020-07-19] MEDS: Aspirin 81 mg Enteric Coated Tablet PO SCH (08:36)
[2020-07-19] MEDS: Apixaban 2.5 MG TAB PO SCH (08:36)
[2020-07-19] MEDS: Ezetimibe 10 MG TAB PO SCH (08:36)
[2020-07-19 08:58] LABS: Hemoglobin 8.3 g/dL (12.0-16.0); Platelet Count 160 thou/uL (130-400)
[2020-07-19] MEDS: EPOETIN ALFA-EPBX (ESRD) 10,000 UNIT/ML VIAL SC SCH (12:45)
--- NOTE | 2020-07-19 15:33 | PDOC.EP ---
- Subjective Date: 07/19/20 Time: 08:00 Interval History: feeling well today. She spontaneously converted to sinus rhythm but has not noticed any clinical change /improvement. possible discharge to rehab later today per patient - Review of Systems Constitutional: denies: chills, fever, malaise, sweats, weakness, other Respiratory: denies: cough, dry, hemoptysis, pleuritic pain, shortness of breath, SOB with excertion, sputum, wheezing, other Cardiology: denies: chest pain, edema, heart racing, light headedness, paroxysmal noc. dyspnea, orthopnea, palpitations, passing out, pleuritic pain, pressure, swelling, other Gastrointestinal: denies: abdominal pain, constipation, diarrhea, hematochezia, melena, nausea, vomitting, other Musculoskeletal: denies: unstable gait, falls, neck pain, shoulder pain, arm pain, hand pain, leg pain, foot pain, other - Objective Allergies/Adverse Reactions: Allergies Allergy/AdvReac Type Severity Reaction Status Date / Time Sulfa (Sulfonamide Allergy Nausea Verified 07/12/20 03:03 Antibiotics) codeine AdvReac Intermediate Nausea Verified 07/12/20 03:03 morphine AdvReac Intermediate Nausea Verified 07/12/20 03:03 Current Medications Apixaban (Apixaban 2.5 Mg Tab) 2.5 mg PO BID [facility] Last Admin: 07/19/20 08:36 Dose: 2.5 mg Documented by: Aspirin (Aspirin 81 Mg Enteric Coated Tablet) 81 mg PO DAILY [facility] Last Admin: 07/19/20 08:36 Dose: 81 mg Documented by: Atorvastatin Calcium (Atorvastatin Calcium 40 Mg Tab) 80 mg PO HS [facility] Last Admin: 07/18/20 20:24 Dose: 80 mg Documented by: Dextrose/Water (Dextrose 50% Abboject 50 Ml Syringe) 25 gm SLOW IVP PRN PRN PRN Reason: Hypoglycemia Dronedarone (Dronedarone Hcl 400 Mg Tab) 400 mg PO BID[facility] Ezetimibe (Ezetimibe 10 Mg Tab) 10 mg PO DAILY [facility] Last Admin: 07/19/20 08:36 Dose: 10 mg Documented by: Epoetin Lee-epbx (Epoetin Lee-Epbx (Esrd) 10,000 Unit/Ml Vial) 10,000 unit SC Q7D [facility] Last Admin: 07/19/20 12:45 Dose: 10,000 unit Documented by: Glucagon (Glucagon 1 Mg/Ml Vial) 1 mg IM PRN PRN PRN Reason: Hypoglycemia Dextrose/Water (D5w) 1,000 mls @ 0 mls/hr IV .Q0M PRN PRN Reason: Hypoglycemia Insulin Human Lispro (Humalog 300 Units/3 Ml Vial) 0 units SC .MILD SLIDING SCALE PRN PRN Reason: Mild Correctional Scale Last Admin: 07/19/20 11:49 Dose: 4 unit Documented by: Insulin Human Lispro (Humalog 300 Units/3 Ml Vial) 0 units SC .BEDTIME SLIDING SC PRN PRN Reason: Bedtime Correctional Scale Last Admin: 07/18/20 00:59 Dose: 2 units Documented by: Lorazepam (Lorazepam 2 Mg/Ml Vial) 0.5 mg SLOW IVP Q6H PRN PRN Reason: Anxiety/Agitation Last Admin: 07/17/20 00:35 Dose: 0.5 mg Documented by: Metoprolol Succinate (Metoprolol Succinate Xl 25 Mg Tab) 12.5 mg PO [facility] Last Admin: 07/18/20 20:24 Dose: 12.5 mg Documented by: Midodrine (Midodrine Hcl 5 Mg Tab) 5 mg PO TID [facility] Last Admin: 07/19/20 08:36 Dose: 5 mg Documented by: Nitroglycerin (Nitroglycerin 4.9 Gm Bottle) 0.4 gm SL Q5MIN PRN PRN Reason: Angina Pantoprazole Sodium (Pantoprazole 40 Mg Tab) 40 mg PO Q12HR [facility] Last Admin: 07/19/20 08:36 Dose: 40 mg Documented by: Sodium Chloride (Sodium Chloride 0.9% (Pf) 10 Ml Vial) 10 ml FS PRN PRN PRN Reason: RECONSTITUTION Last Admin: 07/13/20 20:54 Dose: 10 ml Documented by: Sodium Chloride (Flush - Normal Saline 10 Ml Syringe) 10 ml IVF PRN PRN PRN Reason: Saline Flush Last Admin: 07/13/20 20:54 Dose: 10 ml Documented by: Zolpidem Tartrate (Zolpidem Tartrate 5 Mg Tab) 5 mg PO HSPRN PRN PRN Reason: Insomnia Vital Signs & Weight: Vital Signs Temp Pulse Resp BP Pulse Ox 07/19/20 11:40 99.0 F 87 18 121/57 L 93 L 07/19/20 07:20 97.9 F 93 16 117/55 L 93 L 07/19/20 04:00 97.7 F 91 17 121/86 99 Weight 224 lb 14.4 oz I/O: I/O 07/18/20 07/19/20 07/20/20 06:59 06:59 06:59 Intake Total 840 720 Output Total 175 675 Balance 665 45 - Quality Measures Condition: Atrial Fibrillation/Flutter (hx or current) CV meds: Eliquis: Yes - Physical Exam General: alert & oriented x3, appears well, no apparent distress, speech clear, affect appropriate HEENT: mucus membranes moist, normocephaly Neck: supple neck, midline trachea, no JVD/HJR, no masses, no bruit, no lymphadenopathy, no thromegaly Cardiology: regular rate and rhythm, no murmur, regular rate, regular rhythm, PMI nondisplaced Lungs: clear to auscultation, normal breath sounds, normal exam, no wheeze, rales, rhonchi, no wheezes, no rales, no rhonchi, decreased breath sounds Neurology: cranial nerve 2-12 intact, grossly intact, coordination normal - Chadsvasc Risk factors Congestive heart failure: 1 Age >75: 2 Vascular disease: 1 Female: 1 Risk Score: 5 - Labs Result Diagrams: 07/19/20 08:51 07/19/20 08:51 - EKG Interpretation EKG Method: Telemetry EKG shows: Sinus rhythm - Assessment/Plan Assessment/Plan: 1. Persisting atrial fibrillation with rapid ventricular rate. a. Atrial fibrillation with controlled ventricular rates in 12/2018 and subsequently. b. Failed cardioversion on 07/16/2020. 2. Chronic diastolic heart failure. a. 2D echo from 12/16/2018 reveals LVEF 60% to 65%, [id number] MR, earbzcdn-[id number] TR, pulmonary hypertension at 60 mmHg. b. CHRISTIAN from 07/16/2020 shows normal LV systolic function, biatrial enlargement, RV dilation, severe TR, and mild MR. 3. Coronary artery disease. a. History of CABG in 2006. 4. End-stage renal disease, on hemodialysis. 5. Obesity with BMI of 35. 6. Pulmonary disease. a. Chronic COPD. b. Recent COVID pneumonia. c. Obstructive sleep apnea. 7. Orthostatic hypotension, on midodrine. 8. History of GI bleed, requiring transfusions. a. EGD from 07/12/2020 revealed duodenal ulcers, nonbleeding, on PPI. Spontaneous CV to SR since yesterday, now with diastolic HF better compensated she may be able to tolerate multaq in a hope of maintaining SR. Continue OAC. If CHF worsens Multaq will be need to be stopped.
--- NOTE | 2020-07-19 15:45 | PDOC.DS.DS ---
Provider Date of Admission: 07/12/20 15:45 Date of Discharge: 07/19/20 Admitting Provider: Loki Ward MD Consultations: Cardiology (Dr. Sauer), Gastroentrology (Dr. Avery Yang), Nephrology (Dr. Nevarez), Electrophysiology (Dr. Rolon) Primary Care Physician: Salo Bradshaw MD Course Hospital Course: Discharge diagnosis: 1. Chest pain 2. Chest pain most likely secondary to musculoskeletal etiology 3. Chronic atrial fibrillation 4. Duodenal ulcers 5. GI bleed 6. Hyperkalemia Hospital course: Patient is a pleasant 70-year-old lady who was admitted to the hospital on July 12, 2020 for chest pain. She was seen by cardiology service. She was also seen by nephrology service for maintenance dialysis and by gastroenterology service for melanotic stools. She underwent EGD on July 12. She was found to have multiple duodenal ulcers, all clean white-based without active bleeding or visible vessels. Otherwise, EGD was normal. It was recommended that she continue PPI. Patient also has a history of atrial fibrillation. She was seen by electrophysiology service. On July 17, she underwent CHRISTIAN, which showed severe tricuspid regurgitation with right ventricular enlargement and no formed thrombus in the left atrium or left atrial appendage. CHRISTIAN was followed by cardioversion. Electrical cardioversion was unsuccessful. She has been restarted on apixaban and aspirin. She has also been started on dronedarone. [facility] being [facility]. Many thanks for allowing me to participate in your patient's care. Please feel free to contact me with any questions or concerns. Discharge destination: [facility] facility Total amount of time spent coordinating this discharge: 25 minutes Lab Results: 07/19/20 08:51 07/19/20 08:51 Abnormal Lab Results - Last 48 hrs 07/18/20 03:54: BUN 44 H, Creatinine 5.95 H 07/18/20 03:54: RBC 2.30 L, Hgb 7.6 L, Hct 23.6 L, MCV 103.0 H, MCH 33.2 H, RDW 17.3 H, Monocytes % 11.5 H, Monocytes # 0.6 H 07/19/20 04:17: BUN 22 H, Creatinine 4.00 H 07/19/20 04:17: RBC 2.39 L, Hgb 7.9 L, Hct 24.5 L, MCV 102.0 H, MCH 33.0 H, RDW 17.2 H, Monocytes % 12.0 H, Basophils % 1.3 H, Monocytes # 0.7 H 07/19/20 08:51: Creatinine 4.38 H 07/19/20 08:51: Hgb 8.3 L, Hct 24.4 L Vitals: Vital Signs (12 hours) Temp Pulse Resp BP Pulse Ox 07/19/20 11:40 99.0 F 87 18 121/57 L 93 L 07/19/20 07:20 97.9 F 93 16 117/55 L 93 L 07/19/20 04:00 97.7 F 91 17 121/86 99 Weight Weight 224 lb 14.4 oz Physical Exam: The patient was seen and examined on the day of discharge. Patient denies chest pain or shortness of breath. Vital signs are stable. S1 and S2 are heard. Lungs are clear to auscultation bilaterally. Plan Home Medications: Medication Instructions Recorded Confirmed Type Nitroglycerin 0.4 mg SL Q5MIN PRN 09/11/14 07/12/20 History Atorvastatin Calcium [Lipitor] 80 mg PO DAILY 12/14/18 07/12/20 History Insulin Lispro [HumaLOG KwikPen] 0 unit SC TID-WM 06/29/19 07/12/20 History Calcitriol 1 cap PO DAILY 08/23/19 07/12/20 History Midodrine HCl [ProAmatine] 5 mg PO TID tab 06/22/20 07/12/20 Rx Sevelamer Carbonate [Renvela] 800 mg PO TID-WM tab 06/22/20 07/12/20 Rx Darbepoetin Lee in Polysorbat 40 mcg SC Q7D 07/12/20 07/12/20 History [Aranesp] Fluticasone/Vilanterol [Breo 1 puff INH QAM 07/12/20 07/12/20 History Ellipta] Insulin Detemir [Levemir] 5 units SC BID 07/12/20 07/12/20 History Pantoprazole [Protonix] 40 mg PO BID 07/12/20 07/12/20 History Apixaban [Eliquis] 2.5 mg PO BID tab 07/18/20 Rx Aspirin [Ecotrin Low Strength] 81 mg PO DAILY tab 07/18/20 Rx Ezetimibe [Zetia] 10 mg PO DAILY tab 07/18/20 Rx Metoprolol Succinate [Toprol XL] 12.5 mg PO HS tab 07/18/20 Rx Dronedarone HCl [Multaq] 400 mg PO BID-WM tab 07/19/20 Rx Allergies: Sulfa (Sulfonamide Antibiotics) Allergy (Verified 07/12/20 03:03) Nausea codeine Adverse Reaction (Intermediate, Verified 07/12/20 03:03) Nausea morphine Adverse Reaction (Intermediate, Verified 07/12/20 03:03) Nausea Referrals: [facility]* [Outside] ([facility] placement.) Avery Yang MD [Active] - (Call for GI questions) Salo Bradshaw MD [Primary Care Provider] - 3 Days Walter Cowan MD [Active] - (Accepting pcp at the [facility] for [facility] placement.) Tony Sauer MD [Active] - (Call for questions) Emre Nevarez MD [Active] - (Call for questions) Disposition: CUSTODIAL FACILITY Quality CORE MEASURES:: N/A
[2020-07-19 16:22] VITALS: BP 107/53; TEMP 98.2
[2020-07-19] MEDS ORDERED: Dronedarone HCl 400 MG TAB PO SCH (17:00)
--- NOTE | 2020-07-20 13:53 | EKG ---
Test Reason : C/O CHEST PAIN Blood Pressure : / mmHG Vent. Rate : 100 BPM Atrial Rate : 208 BPM P-R Int : 000 ms QRS Dur : 150 ms QT Int : 384 ms P-R-T Axes : 000 -35 -04 degrees QTc Int : 495 ms Atrial fibrillation with premature ventricular or aberrantly conducted complexes Left axis deviation Right bundle branch block Moderate voltage criteria for LVH, may be normal variant Abnormal ECG When compared with ECG of 11-JUL-2020 22:07, (Unconfirmed) No significant change was found Confirmed by DR. Shahid BOOTHE ([id number]) on 07/20/2020 1:52:54 PM Referred By: AFFRAM Confirmed By:DR. Shahid BOOTHE
== END 2020-07-19 18:15 | DRG 377 ==
LOC: ERS 18:23 → 2NO 23:41 → OBSVTOIN 07-12 15:45
PROVIDERS: ADMIT Student in an Organized Health Care Education/Training Program; ATTEND Internal Medicine
PROC: 0DB78ZX Excision of Stomach, Pylorus, Via Natural or Artificial Opening Endoscopic, Diagnostic (ICD-10-PCS; principal; 2020-07-12)
PROC: 5A1D70Z Performance of Urinary Filtration, Intermittent, Less than 6 Hours Per Day (ICD-10-PCS; 2020-07-13)
PROC: B24BZZ4 Ultrasonography of Heart with Aorta, Transesophageal (ICD-10-PCS; 2020-07-16)
PROC: 5A2204Z Restoration of Cardiac Rhythm, Single (ICD-10-PCS; 2020-07-16)
DX: K26.4 Chronic or unspecified duodenal ulcer with hemorrhage (principal); N18.6 End stage renal disease; I13.2 Hypertensive heart and chronic kidney disease with heart failure and with stage 5 chronic kidney disease, or end stage renal disease; I50.32 Chronic diastolic (congestive) heart failure; I48.19 Other persistent atrial fibrillation; R07.89 Other chest pain; Z86.16 Personal history of COVID-19; I25.10 Atherosclerotic heart disease of native coronary artery without angina pectoris; K21.9 Gastro-esophageal reflux disease without esophagitis; J44.9 Chronic obstructive pulmonary disease, unspecified; I27.20 Pulmonary hypertension, unspecified; I08.1 Rheumatic disorders of both mitral and tricuspid valves; I48.0 Paroxysmal atrial fibrillation; G47.33 Obstructive sleep apnea (adult) (pediatric); E78.5 Hyperlipidemia, unspecified; K26.9 Duodenal ulcer, unspecified as acute or chronic, without hemorrhage or perforation; E11.22 Type 2 diabetes mellitus with diabetic chronic kidney disease; E11.51 Type 2 diabetes mellitus with diabetic peripheral angiopathy without gangrene; D63.1 Anemia in chronic kidney disease; I35.0 Nonrheumatic aortic (valve) stenosis; E66.01 Morbid (severe) obesity due to excess calories; I25.2 Old myocardial infarction; Z99.2 Dependence on renal dialysis; Z88.2 Allergy status to sulfonamides; Z88.5 Allergy status to narcotic agent; Z79.4 Long term (current) use of insulin; Z79.899 Other long term (current) drug therapy; Z95.1 Presence of aortocoronary bypass graft; Z90.49 Acquired absence of other specified parts of digestive tract; Z87.891 Personal history of nicotine dependence; Z68.36 Body mass index [BMI] 36.0-36.9, adult; I95.1 Orthostatic hypotension; E87.5 Hyperkalemia
CPT/HCPCS: 36415; 36416; 71045; 80048; 82550; 82553; 82565; 83880; 84484; 85014; 85018; 85025; 85049; 88305; 90935; 92960; 93005; 93010; 93306; 93312; 94760; 96372; 96374; C9113; G0257; G0378; J1815; J2060; J2250; J2405; J2704; J3490; J7030; Q5105

== ENCOUNTER 2020-12-12 12:41 | Outpatient (CLI) | payer MEDICARE | END 2020-12-12 12:42 | disposition home or self-care (01) | LOC: MRI 12:41 | PROVIDERS: ATTEND Anesthesiology | DX: M47.26 Other spondylosis with radiculopathy, lumbar region (principal); Z98.890 Other specified postprocedural states | CPT/HCPCS: 72148; 72158; 82565 ==

== ENCOUNTER 2021-02-25 13:04 | Observation (INO) | payer MEDICARE ==
[2021-02-25 14:33] LABS: #Eosinphils 0.1 thou/uL (0.0-0.7); #Lymphocytes 1.5 thou/uL (1.20-3.40); #Monocytes 0.5 thou/uL (0.11-0.59); #Neutrophils 5.4 thou/uL (1.40-6.50); %Basophils 0.2 % (0.0-1.0); %Eosinophils 1.2 % (0.0-10.0); %Lymphocytes 20.4 % (21.0-51.0); %Monocytes 6.5 % (0.0-10.0); %Neutrophils 71.7 % (42.0-75.0); Hemoglobin 11.3 g/dL (12.0-16.0); Mean Corpuscular HGB CONC 30.9 g/dL (32.0-36.0); Mean Corpuscular Hemoglobin 30.3 pg (27.0-31.0); Mean Corpuscular Volume 98.2 fL (78.0-98.0); Mean Platelet Volume 9.3 fL (7.4-10.4); Platelet Count 164 thou/uL (130-400); RBC Distribution Width 14.2 % (11.5-14.5); Red Blood Cell (RBC) Count 3.74 mill/uL (4.20-5.40); White Blood Cell (WBC) Count 7.5 thou/uL (4.8-10.8)
[2021-02-25 14:58] LABS: ALT (SGPT) 17 U/L (8-55); AST (SGOT) 14 U/L (5-34); Albumin 3.4 g/dL (3.4-4.8); Alkaline Phosphatase 135 U/L (40-110); Anion Gap 11 mmol/L (10-20); BUN (Urea Nitrogen) 20 mg/dL (9.8-20.1); Bilirubin, Total 0.5 mg/dL (0.2-1.2); Calc. Creatinine Clearance 0 mL/min (70-130); Calcium 9.1 mg/dL (7.8-10.44); Carbon Dioxide 34 mmol/L (23-31); Chloride 96 mmol/L (98-107); Globulin 3.4 g/dL (2.4-3.5); Glucose 166 mg/dL (83-110); Potassium 4.1 mmol/L (3.5-5.1); Protein, Total 6.8 g/dL (5.8-8.1); Sodium 137 mmol/L (136-145)
[2021-02-25] MEDS ORDERED: Nitroglycerin 0.4 MG TAB (25 Tab Bottle) SL PRN (15:43)
[2021-02-25 18:09] LABS: Troponin I 0.012 ng/mL (< 0.028)
[2021-02-25 18:14] LABS: SARS-CoV-2 NAA Rapid Test Not Detected (NotDetected)
[2021-02-25 22:15] VITALS: BMI 38.4
[2021-02-26] MEDS ORDERED: Heparin 25,000 units/D5W 0 ML ONE (13:54)
[2021-02-26] MEDS: Aspirin Chewable 81 MG TAB PO SCH (14:26)
[2021-02-26] MEDS: Sodium Chloride 0.9% 1,000 ML IV SCH (18:05)
[2021-02-26] MEDS ORDERED: Dextrose 5% in Water 1,000 ML IV PRN (20:42)
[2021-02-26] MEDS ORDERED: HumaLOG 300 UNITS/3 ML VIAL SC PRN (20:42)
[2021-02-26] MEDS ORDERED: Dextrose 50% Abboject 50 ML SYRINGE SLOW IVP PRN (20:42)
[2021-02-27 05:49] LABS: #Basophils 0.1 thou/uL (0.0-0.2); #Eosinphils 0.1 thou/uL (0.0-0.7); #Lymphocytes 2.5 thou/uL (1.20-3.40); #Monocytes 0.5 thou/uL (0.11-0.59); #Neutrophils 2.4 thou/uL (1.40-6.50); %Basophils 1.4 % (0.0-1.0); %Eosinophils 1.5 % (0.0-10.0); %Lymphocytes 45.5 % (21.0-51.0); %Monocytes 8.4 % (0.0-10.0); %Neutrophils 43.1 % (42.0-75.0); Hemoglobin 11.4 g/dL (12.0-16.0); Mean Platelet Volume 9.3 fL (7.4-10.4); Platelet Count 143 thou/uL (130-400); RBC Distribution Width 13.9 % (11.5-14.5); Red Blood Cell (RBC) Count 3.66 mill/uL (4.20-5.40); White Blood Cell (WBC) Count 5.5 thou/uL (4.8-10.8)
[2021-02-27 06:18] LABS: Anion Gap 14 mmol/L (10-20); BUN (Urea Nitrogen) 37 mg/dL (9.8-20.1); Calc. Creatinine Clearance 16 mL/min (70-130); Calcium 8.6 mg/dL (7.8-10.44); Carbon Dioxide 28 mmol/L (23-31); Chloride 101 mmol/L (98-107); Glucose 183 mg/dL (83-110); Potassium 4.5 mmol/L (3.5-5.1); Sodium 138 mmol/L (136-145)
[2021-02-27] MEDS: HumaLOG 300 UNITS/3 ML VIAL SC PRN ×2 (06:26→11:07)
[2021-02-27] MEDS: Aspirin Chewable 81 MG TAB PO SCH (08:51)
[2021-02-27 08:59] VITALS: TEMP 97.9
[2021-02-27] MEDS ORDERED: Apixaban 2.5 MG TAB PO SCH (09:00)
[2021-02-27 11:22] VITALS: BP 131/60
[2021-02-27] MEDS: Sodium Chloride 0.9% 1,000 ML IV SCH (16:07)
[2021-02-27] MEDS ORDERED: Atorvastatin Calcium 20 MG TAB PO SCH (21:00)
== END 2021-02-27 20:01 | disposition home or self-care (01) ==
LOC: ERS 13:04 → ERHOLD 15:42 → 2NO 21:22
PROVIDERS: ADMIT Internal Medicine; ATTEND Family Medicine
DX: R07.9 Chest pain, unspecified (principal); I13.2 Hypertensive heart and chronic kidney disease with heart failure and with stage 5 chronic kidney disease, or end stage renal disease; E11.22 Type 2 diabetes mellitus with diabetic chronic kidney disease; N18.6 End stage renal disease; I50.9 Heart failure, unspecified; E11.21 Type 2 diabetes mellitus with diabetic nephropathy; I48.0 Paroxysmal atrial fibrillation; I25.2 Old myocardial infarction; I95.9 Hypotension, unspecified; I25.10 Atherosclerotic heart disease of native coronary artery without angina pectoris; E78.5 Hyperlipidemia, unspecified; J44.9 Chronic obstructive pulmonary disease, unspecified; K21.9 Gastro-esophageal reflux disease without esophagitis; G47.30 Sleep apnea, unspecified; E66.01 Morbid (severe) obesity due to excess calories; Z68.38 Body mass index [BMI] 38.0-38.9, adult; Z20.822 Contact with and (suspected) exposure to COVID-19; Z95.1 Presence of aortocoronary bypass graft; Z88.2 Allergy status to sulfonamides; Z88.5 Allergy status to narcotic agent; Z99.2 Dependence on renal dialysis; Z79.4 Long term (current) use of insulin; Z79.82 Long term (current) use of aspirin; Z79.01 Long term (current) use of anticoagulants; Z79.899 Other long term (current) drug therapy; Z85.3 Personal history of malignant neoplasm of breast; Z85.42 Personal history of malignant neoplasm of other parts of uterus; Z85.41 Personal history of malignant neoplasm of cervix uteri; Z90.710 Acquired absence of both cervix and uterus; Z90.5 Acquired absence of kidney; Z87.891 Personal history of nicotine dependence; Z86.16 Personal history of COVID-19
CPT/HCPCS: 71045; 80048; 80053; 82962 ×3; 83880; 84484 ×2; 85025 ×2; 93005; 94760; 99285; G0378 ×4; U0002; 36415; 36416; 90935; G0257; J1644; J1815; J7050

== ENCOUNTER 2021-05-04 09:06 | Inpatient (IN) | payer MEDICARE ==
[2021-05-04] MEDS ORDERED: Ondansetron PF 4 MG/2 ML Vial ONE (09:34)
[2021-05-04 09:42] LABS: #Lymphocytes 1.2 thou/uL (1.20-3.40); #Monocytes 0.7 thou/uL (0.11-0.59); #Neutrophils 6.5 thou/uL (1.40-6.50); %Eosinophils 0.5 % (0.0-10.0); %Lymphocytes 14.4 % (21.0-51.0); %Neutrophils 77.1 % (42.0-75.0); Hemoglobin 10.5 g/dL (12.0-16.0); Mean Corpuscular HGB CONC 32.7 g/dL (32.0-36.0); Mean Corpuscular Hemoglobin 32.8 pg (27.0-31.0); Mean Platelet Volume 10.3 fL (7.4-10.4); Platelet Count 148 thou/uL (130-400); RBC Distribution Width 14.2 % (11.5-14.5); Red Blood Cell (RBC) Count 3.21 mill/uL (4.20-5.40); White Blood Cell (WBC) Count 8.4 thou/uL (4.8-10.8)
[2021-05-04] MEDS ORDERED: Iopamidol-370 76% 500 ML 1 ML ONE (10:00)
[2021-05-04 10:04] LABS: ALT (SGPT) 11 U/L (8-55); AST (SGOT) 12 U/L (5-34); Albumin 3.1 g/dL (3.4-4.8); Alkaline Phosphatase 109 U/L (40-110); Anion Gap 16 mmol/L (10-20); BUN (Urea Nitrogen) 37 mg/dL (9.8-20.1); Bilirubin, Total 0.5 mg/dL (0.2-1.2); Calc. Creatinine Clearance 0 mL/min (70-130); Calcium 9.7 mg/dL (7.8-10.44); Carbon Dioxide 30 mmol/L (23-31); Chloride 98 mmol/L (98-107); Glucose 327 mg/dL (83-110); Potassium 4.5 mmol/L (3.5-5.1); Protein, Total 7.1 g/dL (5.8-8.1); Sodium 139 mmol/L (136-145)
[2021-05-04 10:17] LABS: Lipase 1194 U/L (8-78)
[2021-05-04] MEDS ORDERED: Morphine 4 MG/ML VIAL ONE (10:36)
[2021-05-04] MEDS ORDERED: Dextrose 50% Abboject 50 ML SYRINGE SLOW IVP PRN (12:40)
[2021-05-04] MEDS ORDERED: Bisacodyl 5 MG TAB PO PRN (12:40)
[2021-05-04] MEDS ORDERED: Dextrose 5% in Water 1,000 ML IV PRN (12:40)
[2021-05-04] MEDS ORDERED: Acetaminophen 325 MG TAB PO PRN (12:59)
[2021-05-04] MEDS: Sodium Chloride 0.9% 1,000 ML IV SCH (13:14)
[2021-05-04] MEDS: Ondansetron PF 4 MG/2 ML Vial IVP PRN (13:28)
[2021-05-04 14:21] VITALS: BMI 36.6
[2021-05-04] MEDS ORDERED: Nitroglycerin 0.4 MG TAB (25 Tab Bottle) SL PRN (19:03)
[2021-05-04] MEDS: Apixaban 2.5 MG TAB PO SCH (21:00)
[2021-05-04] MEDS: Lantus 1000 UNITS/10 ML VIAL SC SCH (21:02)
[2021-05-04 21:36] LABS: SARS-CoV-2 PCR by NAA Not Detected (NotDetected)
[2021-05-05] MEDS: Morphine 4 MG/ML VIAL SLOW IVP PRN ×2 (06:38→15:15)
[2021-05-05] MEDS: Ondansetron PF 4 MG/2 ML Vial IVP PRN (06:39)
[2021-05-05 06:50] LABS: #Eosinphils 0.1 thou/uL (0.0-0.7); #Lymphocytes 1.4 thou/uL (1.20-3.40); #Monocytes 0.6 thou/uL (0.11-0.59); #Neutrophils 4.7 thou/uL (1.40-6.50); %Basophils 0.3 % (0.0-1.0); %Eosinophils 1.4 % (0.0-10.0); %Lymphocytes 20.3 % (21.0-51.0); %Monocytes 8.5 % (0.0-10.0); %Neutrophils 69.6 % (42.0-75.0); Hemoglobin 9.7 g/dL (12.0-16.0); Mean Corpuscular HGB CONC 32.6 g/dL (32.0-36.0); Mean Corpuscular Hemoglobin 33.2 pg (27.0-31.0); Mean Platelet Volume 9.8 fL (7.4-10.4); Platelet Count 139 thou/uL (130-400); RBC Distribution Width 14.2 % (11.5-14.5); Red Blood Cell (RBC) Count 2.93 mill/uL (4.20-5.40); White Blood Cell (WBC) Count 6.7 thou/uL (4.8-10.8)
[2021-05-05 07:08] LABS: Anion Gap 14 mmol/L (10-20); BUN (Urea Nitrogen) 42 mg/dL (9.8-20.1); Calc. Creatinine Clearance 14 mL/min (70-130); Calcium 8.9 mg/dL (7.8-10.44); Carbon Dioxide 29 mmol/L (23-31); Chloride 103 mmol/L (98-107); Glucose 110 mg/dL (83-110); Lipase 485 U/L (8-78); Potassium 4.4 mmol/L (3.5-5.1); Sodium 142 mmol/L (136-145)
[2021-05-05] MEDS: Sevelamer Carbonate 800 MG TAB PO SCH ×3 (08:33→16:56)
[2021-05-05] MEDS: Lantus 1000 UNITS/10 ML VIAL SC SCH ×2 (08:33→20:29)
[2021-05-05] MEDS: Dronedarone HCl 400 MG TAB PO SCH ×3 (08:33→16:56)
[2021-05-05] MEDS: Calcitriol 0.25 MCG CAP PO SCH ×2 (08:34→11:20)
[2021-05-05] MEDS: Aspirin 81 mg Enteric Coated Tablet PO SCH ×2 (08:34→11:20)
[2021-05-05] MEDS: Apixaban 2.5 MG TAB PO SCH ×2 (08:34→20:26)
[2021-05-05] MEDS: Atorvastatin Calcium 40 MG TAB PO SCH ×2 (08:34→11:20)
[2021-05-05] MEDS: Ezetimibe 10 MG TAB PO SCH ×2 (08:34→11:20)
[2021-05-05] MEDS: Sodium Chloride 0.9% 1,000 ML IV SCH (11:26)
[2021-05-05] MEDS ORDERED: Epoetin (ESRD) 20,000 UNITS/ML SC SCH (12:00)
[2021-05-05] MEDS ORDERED: EPOETIN ALFA-EPBX (ESRD) 4,000 UNIT/ML VIAL SC SCH (12:00)
[2021-05-06] MEDS: Sodium Chloride 0.9% 1,000 ML IV SCH (05:40)
[2021-05-06 07:58] LABS: Hemoglobin 8.8 g/dL (12.0-16.0); Mean Corpuscular HGB CONC 31.6 g/dL (32.0-36.0); RBC Distribution Width 14.1 % (11.5-14.5); Red Blood Cell (RBC) Count 2.68 mill/uL (4.20-5.40)
[2021-05-06 08:19] LABS: Anion Gap 10 mmol/L (10-20); BUN (Urea Nitrogen) 40 mg/dL (9.8-20.1); Calc. Creatinine Clearance 15 mL/min (70-130); Carbon Dioxide 26 mmol/L (23-31); Chloride 108 mmol/L (98-107); Glucose 82 mg/dL (83-110); Lipase 192 U/L (8-78); Potassium 4.2 mmol/L (3.5-5.1); Sodium 140 mmol/L (136-145)
[2021-05-06 08:21] LABS: ALT (SGPT) 9 U/L (8-55); AST (SGOT) 8 U/L (5-34); Albumin 2.1 g/dL (3.4-4.8); Alkaline Phosphatase 53 U/L (40-110); Bilirubin, Direct 0.1 mg/dL (0.1-0.3); Bilirubin, Total 0.3 mg/dL (0.2-1.2)
[2021-05-06 08:22] LABS: #Eosinphils 0.1 thou/uL (0.0-0.7); #Lymphocytes 1.3 thou/uL (1.20-3.40); #Monocytes 0.6 thou/uL (0.11-0.59); %Basophils 0.3 % (0.0-1.0); %Eosinophils 2.3 % (0.0-10.0); %Lymphocytes 21.8 % (21.0-51.0); %Monocytes 9.4 % (0.0-10.0); %Neutrophils 66.3 % (42.0-75.0); Mean Platelet Volume 9.8 fL (7.4-10.4); Platelet Count 119 thou/uL (130-400)
[2021-05-06] MEDS: Dronedarone HCl 400 MG TAB PO SCH ×2 (10:02→17:03)
[2021-05-06] MEDS: Apixaban 2.5 MG TAB PO SCH ×2 (10:03→20:43)
[2021-05-06] MEDS: Sevelamer Carbonate 800 MG TAB PO SCH ×3 (10:03→17:03)
[2021-05-06] MEDS: Lantus 1000 UNITS/10 ML VIAL SC SCH ×2 (10:03→20:47)
[2021-05-06] MEDS: Calcitriol 0.25 MCG CAP PO SCH (15:23)
[2021-05-06] MEDS: Aspirin 81 mg Enteric Coated Tablet PO SCH (15:23)
[2021-05-06] MEDS: Atorvastatin Calcium 40 MG TAB PO SCH (15:23)
[2021-05-06] MEDS: Midodrine HCl 5 MG TAB PO SCH (15:24)
[2021-05-06] MEDS: Ezetimibe 10 MG TAB PO SCH (15:24)
[2021-05-07] MEDS: Sodium Chloride 0.9% 1,000 ML IV SCH ×2 (04:50→20:51)
[2021-05-07 06:38] LABS: #Eosinphils 0.1 thou/uL (0.0-0.7); #Lymphocytes 1.3 thou/uL (1.20-3.40); #Monocytes 0.5 thou/uL (0.11-0.59); #Neutrophils 3.7 thou/uL (1.40-6.50); %Basophils 0.3 % (0.0-1.0); %Eosinophils 1.6 % (0.0-10.0); %Lymphocytes 23.7 % (21.0-51.0); %Neutrophils 65.5 % (42.0-75.0); Hemoglobin 9.4 g/dL (12.0-16.0); Mean Corpuscular Hemoglobin 32.7 pg (27.0-31.0); Mean Platelet Volume 9.8 fL (7.4-10.4); Platelet Count 130 thou/uL (130-400); Red Blood Cell (RBC) Count 2.87 mill/uL (4.20-5.40); White Blood Cell (WBC) Count 5.7 thou/uL (4.8-10.8)
[2021-05-07 06:58] LABS: Anion Gap 10 mmol/L (10-20); BUN (Urea Nitrogen) 20 mg/dL (9.8-20.1); Calc. Creatinine Clearance 19 mL/min (70-130); Calcium 8.3 mg/dL (7.8-10.44); Carbon Dioxide 29 mmol/L (23-31); Chloride 102 mmol/L (98-107); Glucose 106 mg/dL (83-110); Lipase 95 U/L (8-78); Sodium 137 mmol/L (136-145)
[2021-05-07] MEDS: Apixaban 2.5 MG TAB PO SCH ×2 (08:03→20:33)
[2021-05-07] MEDS: Dronedarone HCl 400 MG TAB PO SCH ×2 (08:03→16:36)
[2021-05-07] MEDS: Calcitriol 0.25 MCG CAP PO SCH (08:03)
[2021-05-07] MEDS: Atorvastatin Calcium 40 MG TAB PO SCH (08:03)
[2021-05-07] MEDS: Lantus 1000 UNITS/10 ML VIAL SC SCH ×2 (08:03→20:35)
[2021-05-07] MEDS: Ezetimibe 10 MG TAB PO SCH (08:03)
[2021-05-07] MEDS: Sevelamer Carbonate 800 MG TAB PO SCH ×3 (08:03→16:36)
[2021-05-07] MEDS: Aspirin 81 mg Enteric Coated Tablet PO SCH (08:03)
[2021-05-07] MEDS: HumaLOG 300 UNITS/3 ML VIAL SC PRN (16:37)
[2021-05-07] MEDS: Ondansetron PF 4 MG/2 ML Vial IVP PRN (20:47)
[2021-05-08] MEDS: HumaLOG 300 UNITS/3 ML VIAL SC PRN ×2 (05:29→12:13)
[2021-05-08 07:47] LABS: #Eosinphils 0.1 thou/uL (0.0-0.7); #Lymphocytes 1.1 thou/uL (1.20-3.40); #Monocytes 0.5 thou/uL (0.11-0.59); #Neutrophils 4.2 thou/uL (1.40-6.50); %Basophils 0.4 % (0.0-1.0); %Eosinophils 1.5 % (0.0-10.0); %Lymphocytes 18.8 % (21.0-51.0); %Monocytes 7.8 % (0.0-10.0); %Neutrophils 71.6 % (42.0-75.0); Hemoglobin 9.8 g/dL (12.0-16.0); Mean Corpuscular HGB CONC 31.4 g/dL (32.0-36.0); Mean Corpuscular Hemoglobin 31.9 pg (27.0-31.0); Mean Platelet Volume 9.4 fL (7.4-10.4); Platelet Count 131 thou/uL (130-400); RBC Distribution Width 13.8 % (11.5-14.5); Red Blood Cell (RBC) Count 3.08 mill/uL (4.20-5.40); White Blood Cell (WBC) Count 5.9 thou/uL (4.8-10.8)
[2021-05-08 08:09] LABS: ALT (SGPT) 8 U/L (8-55); AST (SGOT) 10 U/L (5-34); Albumin 2.4 g/dL (3.4-4.8); Alkaline Phosphatase 78 U/L (40-110); Anion Gap 11 mmol/L (10-20); BUN (Urea Nitrogen) 32 mg/dL (9.8-20.1); Bilirubin, Total 0.3 mg/dL (0.2-1.2); Calc. Creatinine Clearance 13 mL/min (70-130); Calcium 8.9 mg/dL (7.8-10.44); Carbon Dioxide 27 mmol/L (23-31); Chloride 102 mmol/L (98-107); Globulin 3.5 g/dL (2.4-3.5); Glucose 192 mg/dL (83-110); Potassium 4.4 mmol/L (3.5-5.1); Protein, Total 5.9 g/dL (5.8-8.1); Sodium 136 mmol/L (136-145)
[2021-05-08 08:18] VITALS: BP 162/60; TEMP 98
[2021-05-08] MEDS: Calcitriol 0.25 MCG CAP PO SCH (09:24)
[2021-05-08] MEDS: Dronedarone HCl 400 MG TAB PO SCH ×2 (09:24→17:02)
[2021-05-08] MEDS: Ezetimibe 10 MG TAB PO SCH (09:24)
[2021-05-08] MEDS: Atorvastatin Calcium 40 MG TAB PO SCH (09:24)
[2021-05-08] MEDS: Sevelamer Carbonate 800 MG TAB PO SCH ×3 (09:24→17:02)
[2021-05-08] MEDS: Aspirin 81 mg Enteric Coated Tablet PO SCH (09:24)
[2021-05-08] MEDS: Apixaban 2.5 MG TAB PO SCH (09:25)
[2021-05-08] MEDS: Lantus 1000 UNITS/10 ML VIAL SC SCH (09:25)
[2021-05-08] MEDS: Midodrine HCl 5 MG TAB PO SCH (09:42)
[2021-05-08] MEDS: Sodium Chloride 0.9% 1,000 ML IV SCH (17:32)
== END 2021-05-08 19:04 | disposition home or self-care (01) | DRG 438 ==
LOC: ERS 09:06 → T4-B 11:40
PROVIDERS: ADMIT Internal Medicine; ATTEND Internal Medicine
PROC: 5A1D70Z Performance of Urinary Filtration, Intermittent, Less than 6 Hours Per Day (ICD-10-PCS; principal; 2021-05-06)
DX: K85.00 Idiopathic acute pancreatitis without necrosis or infection (principal); N18.6 End stage renal disease; I13.2 Hypertensive heart and chronic kidney disease with heart failure and with stage 5 chronic kidney disease, or end stage renal disease; Z20.822 Contact with and (suspected) exposure to COVID-19; I25.10 Atherosclerotic heart disease of native coronary artery without angina pectoris; E11.22 Type 2 diabetes mellitus with diabetic chronic kidney disease; D63.1 Anemia in chronic kidney disease; I48.0 Paroxysmal atrial fibrillation; G47.33 Obstructive sleep apnea (adult) (pediatric); I25.2 Old myocardial infarction; Z86.16 Personal history of COVID-19; Z99.2 Dependence on renal dialysis; Z90.49 Acquired absence of other specified parts of digestive tract; Z90.710 Acquired absence of both cervix and uterus; Z95.1 Presence of aortocoronary bypass graft; Z87.891 Personal history of nicotine dependence; Z90.12 Acquired absence of left breast and nipple; Z88.5 Allergy status to narcotic agent; Z88.2 Allergy status to sulfonamides; Z79.899 Other long term (current) drug therapy; Z79.4 Long term (current) use of insulin; Z79.01 Long term (current) use of anticoagulants; Z79.82 Long term (current) use of aspirin; Z82.49 Family history of ischemic heart disease and other diseases of the circulatory system; Z87.11 Personal history of peptic ulcer disease; Z90.5 Acquired absence of kidney; Z87.01 Personal history of pneumonia (recurrent)
CPT/HCPCS: 36415; 36416; 74177; 76705; 80048; 80053; 80076; 82553; 83605; 83690; 84484; 85025; 93005; 96374; 96375; J1815; J2270; J2405; J7050; Q5105; Q9967; U0003; U0005

== ENCOUNTER 2021-10-14 09:21 | Emergency (ER) | payer MEDICARE, OTHER ==
[2021-10-14] MEDS ORDERED: Fentanyl 100 MCG/2 ML VIAL ONE (10:02)
[2021-10-14] MEDS ORDERED: Acetaminophen 500 MG TAB ONE (13:42)
[2021-10-14 15:52] LABS: ALT (SGPT) 19 U/L (8-55); AST (SGOT) 22 U/L (5-34); Albumin 3.5 g/dL (3.4-4.8); Alkaline Phosphatase 89 U/L (40-110); Anion Gap 15 mmol/L (10-20); BUN (Urea Nitrogen) 55 mg/dL (9.8-20.1); Bilirubin, Total 0.6 mg/dL (0.2-1.2); CK (CPK) 77 U/L (29-168); Calc. Creatinine Clearance 0 mL/min (70-130); Calcium 10.2 mg/dL (7.8-10.44); Carbon Dioxide 24 mmol/L (23-31); Chloride 103 mmol/L (98-107); Globulin 3.5 g/dL (2.4-3.5); Glucose 208 mg/dL (83-110); Potassium 5.3 mmol/L (3.5-5.1); Sodium 137 mmol/L (136-145)
== END 2021-10-14 18:05 ==
LOC: ERS 09:21
DX: S30.0XXA Contusion of lower back and pelvis, initial encounter (principal); I13.2 Hypertensive heart and chronic kidney disease with heart failure and with stage 5 chronic kidney disease, or end stage renal disease; E11.22 Type 2 diabetes mellitus with diabetic chronic kidney disease; N18.6 End stage renal disease; I50.9 Heart failure, unspecified; J44.9 Chronic obstructive pulmonary disease, unspecified; I25.2 Old myocardial infarction; I25.10 Atherosclerotic heart disease of native coronary artery without angina pectoris; Z79.4 Long term (current) use of insulin; Z87.891 Personal history of nicotine dependence; Z99.81 Dependence on supplemental oxygen; Z99.2 Dependence on renal dialysis; W05.0XXA Fall from non-moving wheelchair, initial encounter
CPT/HCPCS: 36415; 51701; 70450; 72125; 72128; 72131; 80053; 82550; 96374; J3010

== ENCOUNTER 2021-10-22 16:18 | Inpatient (IN) | payer MEDICARE ==
[2021-10-22 17:24] LABS: #Monocytes 0.4 thou/uL (0.11-0.59); #Neutrophils 8.1 thou/uL (1.40-6.50); %Basophils 0.2 % (0.0-1.0); %Eosinophils 0.1 % (0.0-10.0); %Lymphocytes 10.4 % (21.0-51.0); %Monocytes 4.1 % (0.0-10.0); %Neutrophils 85.2 % (42.0-75.0); Hemoglobin 12.6 g/dL (12.0-16.0); Mean Corpuscular HGB CONC 31.2 g/dL (32.0-36.0); Mean Corpuscular Hemoglobin 31.9 pg (27.0-31.0); Mean Platelet Volume 10.1 fL (7.4-10.4); Platelet Count 185 thou/uL (130-400); RBC Distribution Width 13.4 % (11.5-14.5); Red Blood Cell (RBC) Count 3.97 mill/uL (4.20-5.40); White Blood Cell (WBC) Count 9.5 thou/uL (4.8-10.8)
[2021-10-22 17:37] LABS: Bilirubin 1+ (Negative); Blood, Urine Negative (Negative); Clarity Turbid (Clear); Glucose, Urine (Dipstick) 50 mg/dL (Negative); Ketone, Urine Negative (Negative); Leukocyte 250 Leu/uL (Negative); Nitrite Negative (Negative); Protein, Urine (Dipstick) 100 mg/dL (Neg-Trace); RBC/HPF 0-3 HPF (0-3); Squamous Epithelial 0-3 HPF (0-3); Urobilinogen Normal mg/dL (Less than 2); WBC/HPF 21-50 HPF (0-3); pH, Urine 5.5 (5.0-9.0)
[2021-10-22 17:38] LABS: Bacteria/HPF 1+ HPF (None Seen)
[2021-10-22 17:47] LABS: ALT (SGPT) 13 U/L (8-55); AST (SGOT) 16 U/L (5-34); Albumin 3.4 g/dL (3.4-4.8); Alkaline Phosphatase 67 U/L (40-110); Anion Gap 17 mmol/L (10-20); BUN (Urea Nitrogen) 72 mg/dL (9.8-20.1); Bilirubin, Total 0.7 mg/dL (0.2-1.2); Calc. Creatinine Clearance 0 mL/min (70-130); Calcium 9.8 mg/dL (7.8-10.44); Carbon Dioxide 27 mmol/L (23-31); Chloride 89 mmol/L (98-107); Globulin 3.3 g/dL (2.4-3.5); Glucose 146 mg/dL (83-110); Potassium 4.9 mmol/L (3.5-5.1); Protein, Total 6.7 g/dL (5.8-8.1); Sodium 128 mmol/L (136-145)
[2021-10-22] MEDS ORDERED: diphenhydrAMINE 50 MG/ML VIAL ONE (17:56)
[2021-10-22] MEDS ORDERED: cefTRIAXone\\ROCEPHIN 1 GM VIAL ONE (17:56)
[2021-10-22 18:48] LABS: CK (CPK) 99 U/L (29-168); Magnesium 2.9 mg/dL (1.6-2.6)
[2021-10-22 19:11] LABS: CKMB 2.8 ng/mL (0-6.6)
[2021-10-22] MEDS ORDERED: Ondansetron PF 4 MG/2 ML Vial IVP PRN (19:33)
[2021-10-22 19:39] LABS: Analyzer IN Cardio ER; Base Excess (BEa) 0.8 mEq/L (-2.0 to +3.0); Calcium, Ionized (arterial) 1.19 mmol/L (1.12-1.30); Carboxyhemoglobin (COHb) 0.9 gm% (0.0-3.0); Hemoglobin (Hb) 12.7 g/dL (12.0-16.0); O2 Tension (PaO2), arterial 62.3 mmHg (> 70.0); Potassium - ABG Lab 5.07 mmol/L (3.70-5.30); pH, Arterial 7.39 (7.35-7.45)
[2021-10-22 19:42] LABS: Puncture Site LRA
[2021-10-22] MEDS ORDERED: HumaLOG 300 UNITS/3 ML VIAL SC PRN (20:16)
[2021-10-22] MEDS ORDERED: Dextrose 5% in Water 1,000 ML IV PRN (20:16)
[2021-10-22] MEDS ORDERED: Dextrose 50% Abboject 50 ML SYRINGE SLOW IVP PRN (20:16)
[2021-10-22 20:35] LABS: Amphetamine Not Detected (NotDetected); Barbiturates Screen Not Detected (NotDetected); Benzodiazepine Screen Not Detected (NotDetected); Cocaine Metabolite Screen Not Detected (NotDetected); Methadone Not Detected (NotDetected); Methamphetamine Not Detected (NotDetected); Opiate Screen Detected (NotDetected); Oxycodone Screen Not Detected (NotDetected); Phencyclidine (PCP) Not Detected (NotDetected); THC/Cannabinoid Screen Not Detected (NotDetected); Tricyclic Screen Not Detected (NotDetected)
[2021-10-22] MEDS ORDERED: Heparin 5,000 UNITS/ML VIAL SC SCH (21:00)
[2021-10-22 22:20] LABS: Troponin I 0.072 ng/mL (< 0.028)
[2021-10-23 01:20] LABS: Troponin I 0.073 ng/mL (< 0.028)
[2021-10-23 03:55] LABS: #Basophils 0.2 thou/uL (0.0-0.2); #Lymphocytes 1.3 thou/uL (1.20-3.40); #Monocytes 0.7 thou/uL (0.11-0.59); #Neutrophils 7.1 thou/uL (1.40-6.50); %Basophils 1.7 % (0.0-1.0); %Eosinophils 0.1 % (0.0-10.0); %Lymphocytes 14.5 % (21.0-51.0); %Monocytes 7.3 % (0.0-10.0); %Neutrophils 76.4 % (42.0-75.0); Hemoglobin 12.3 g/dL (12.0-16.0); Mean Corpuscular HGB CONC 32.3 g/dL (32.0-36.0); Mean Corpuscular Hemoglobin 32.9 pg (27.0-31.0); Mean Platelet Volume 9.8 fL (7.4-10.4); Platelet Count 171 thou/uL (130-400); RBC Distribution Width 13.1 % (11.5-14.5); Red Blood Cell (RBC) Count 3.74 mill/uL (4.20-5.40); White Blood Cell (WBC) Count 9.2 thou/uL (4.8-10.8)
[2021-10-23 04:23] LABS: Anion Gap 17 mmol/L (10-20); BUN (Urea Nitrogen) 31 mg/dL (9.8-20.1); Calc. Creatinine Clearance 20 mL/min (70-130); Calcium 8.7 mg/dL (7.8-10.44); Carbon Dioxide 23 mmol/L (23-31); Chloride 96 mmol/L (98-107); Glucose 109 mg/dL (83-110); Potassium 3.9 mmol/L (3.5-5.1); Sodium 132 mmol/L (136-145)
[2021-10-23] MEDS ORDERED: Apixaban 2.5 MG TAB PO SCH ×2 (09:00→21:00)
[2021-10-23 12:00] LABS: SARS-CoV-2 PCR by NAA Not Detected (NotDetected)
[2021-10-23] MEDS: cefTRIAXone\\ROCEPHIN 1 GM in Sodium Chloride 0.9% 100 ML IVPB SCH (22:01)
[2021-10-23] MEDS: Dronedarone HCl 400 MG TAB PO SCH (22:02)
[2021-10-23] MEDS: Sevelamer Carbonate 800 MG TAB PO SCH (22:03)
[2021-10-24 06:14] LABS: #Basophils 0.1 thou/uL (0.0-0.2); #Eosinphils 0.1 thou/uL (0.0-0.7); #Lymphocytes 1.8 thou/uL (1.20-3.40); #Neutrophils 6.8 thou/uL (1.40-6.50); %Basophils 0.6 % (0.0-1.0); %Eosinophils 1.3 % (0.0-10.0); %Lymphocytes 18.5 % (21.0-51.0); %Monocytes 9.9 % (0.0-10.0); %Neutrophils 69.7 % (42.0-75.0); Hemoglobin 13.9 g/dL (12.0-16.0); Mean Corpuscular HGB CONC 31.3 g/dL (32.0-36.0); Mean Corpuscular Hemoglobin 32.6 pg (27.0-31.0); Platelet Count 194 thou/uL (130-400); RBC Distribution Width 13.3 % (11.5-14.5); Red Blood Cell (RBC) Count 4.25 mill/uL (4.20-5.40); White Blood Cell (WBC) Count 9.8 thou/uL (4.8-10.8)
[2021-10-24 06:26] LABS: Anion Gap 15 mmol/L (10-20); BUN (Urea Nitrogen) 25 mg/dL (9.8-20.1); Calc. Creatinine Clearance 20 mL/min (70-130); Calcium 9.1 mg/dL (7.8-10.44); Carbon Dioxide 27 mmol/L (23-31); Chloride 98 mmol/L (98-107); Glucose 118 mg/dL (83-110); Potassium 3.9 mmol/L (3.5-5.1); Sodium 136 mmol/L (136-145)
[2021-10-24] MEDS ORDERED: Polyethylene Glycol 3350 17 GM Packet PO SCH (06:30)
[2021-10-24] MEDS: Mometasone 100 MCG/Formoterol 5 MCG 120 PUFF INHALER INH SCH ×2 (07:11→20:23)
[2021-10-24] MEDS: Dronedarone HCl 400 MG TAB PO SCH ×2 (09:25→17:06)
[2021-10-24] MEDS: Cholecalciferol 1,000 UNITS (25 MCG) TAB PO SCH (09:26)
[2021-10-24] MEDS: Sevelamer Carbonate 800 MG TAB PO SCH ×3 (09:26→17:06)
[2021-10-24] MEDS: Acetaminophen 325 MG TAB PO PRN (09:26)
[2021-10-24] MEDS: Aspirin 81 mg Enteric Coated Tablet PO SCH (09:26)
[2021-10-24] MEDS ORDERED: Gabapentin 100 MG CAP PO SCH (12:30)
[2021-10-24] MEDS: Metoclopramide HCl 10 MG TAB PO SCH ×2 (15:03→20:24)
[2021-10-24] MEDS: cefTRIAXone\\ROCEPHIN 1 GM in Sodium Chloride 0.9% 100 ML IVPB SCH (17:03)
[2021-10-24] MEDS: Insulin Glargine 30 UNITS/0.3 ML VIAL SC SCH (20:23)
[2021-10-24] MEDS: Gabapentin 100 MG CAP PO SCH (20:24)
[2021-10-24] MEDS: Apixaban 2.5 MG TAB PO SCH (20:24)
[2021-10-25 06:47] LABS: #Basophils 0.3 thou/uL (0.0-0.2); #Eosinphils 0.1 thou/uL (0.0-0.7); #Lymphocytes 2.1 thou/uL (1.20-3.40); #Monocytes 1.1 thou/uL (0.11-0.59); #Neutrophils 5.6 thou/uL (1.40-6.50); %Basophils 2.8 % (0.0-1.0); %Eosinophils 1.4 % (0.0-10.0); %Lymphocytes 23.1 % (21.0-51.0); %Monocytes 11.7 % (0.0-10.0); %Neutrophils 61.1 % (42.0-75.0); Mean Corpuscular HGB CONC 30.9 g/dL (32.0-36.0); Mean Corpuscular Hemoglobin 32.4 pg (27.0-31.0); Platelet Count 174 thou/uL (130-400); RBC Distribution Width 13.3 % (11.5-14.5); White Blood Cell (WBC) Count 9.2 thou/uL (4.8-10.8)
[2021-10-25 06:49] LABS: Anion Gap 17 mmol/L (10-20); BUN (Urea Nitrogen) 45 mg/dL (9.8-20.1); Calc. Creatinine Clearance 14 mL/min (70-130); Calcium 9.3 mg/dL (7.8-10.44); Carbon Dioxide 22 mmol/L (23-31); Chloride 99 mmol/L (98-107); Glucose 113 mg/dL (83-110); Potassium 4.2 mmol/L (3.5-5.1); Sodium 134 mmol/L (136-145)
[2021-10-25] MEDS: Mometasone 100 MCG/Formoterol 5 MCG 120 PUFF INHALER INH SCH ×2 (07:06→18:45)
[2021-10-25] MEDS: Gabapentin 100 MG CAP PO SCH ×3 (09:19→20:07)
[2021-10-25] MEDS: Insulin Glargine 30 UNITS/0.3 ML VIAL SC SCH ×3 (09:19→20:07)
[2021-10-25] MEDS: Apixaban 2.5 MG TAB PO SCH ×3 (09:19→20:07)
[2021-10-25] MEDS: Dronedarone HCl 400 MG TAB PO SCH ×3 (09:19→17:09)
[2021-10-25] MEDS: Sevelamer Carbonate 800 MG TAB PO SCH ×4 (09:19→17:10)
[2021-10-25] MEDS: Metoclopramide HCl 10 MG TAB PO SCH ×4 (09:20→20:07)
[2021-10-25] MEDS: Aspirin 81 mg Enteric Coated Tablet PO SCH (10:45)
[2021-10-25] MEDS: Cholecalciferol 1,000 UNITS (25 MCG) TAB PO SCH (10:45)
[2021-10-25] MEDS: Lisinopril 5 MG TAB PO SCH (10:48)
[2021-10-25] MEDS: Polyethylene Glycol 3350 17 GM Packet PO SCH (10:49)
[2021-10-25] MEDS: HumaLOG 300 UNITS/3 ML VIAL SC PRN ×2 (12:15→17:13)
[2021-10-25] MEDS: Acetaminophen 325 MG TAB PO PRN (12:47)
[2021-10-25 13:53] VITALS: BMI 34.3
[2021-10-25] MEDS: cefTRIAXone\\ROCEPHIN 1 GM in Sodium Chloride 0.9% 100 ML IVPB SCH (17:13)
[2021-10-26] MEDS: Mometasone 100 MCG/Formoterol 5 MCG 120 PUFF INHALER INH SCH (07:06)
[2021-10-26 07:19] LABS: Anion Gap 13 mmol/L (10-20); BUN (Urea Nitrogen) 59 mg/dL (9.8-20.1); Calc. Creatinine Clearance 12 mL/min (70-130); Carbon Dioxide 28 mmol/L (23-31); Chloride 99 mmol/L (98-107); Glucose 129 mg/dL (83-110); Sodium 136 mmol/L (136-145)
[2021-10-26 07:34] VITALS: BP 134/67; TEMP 97.8
[2021-10-26] MEDS: Sevelamer Carbonate 800 MG TAB PO SCH ×2 (09:48→12:24)
[2021-10-26] MEDS: Dronedarone HCl 400 MG TAB PO SCH (09:48)
[2021-10-26] MEDS: Metoclopramide HCl 10 MG TAB PO SCH ×2 (09:49→14:17)
[2021-10-26] MEDS: Gabapentin 100 MG CAP PO SCH (09:49)
[2021-10-26] MEDS: Insulin Glargine 30 UNITS/0.3 ML VIAL SC SCH (09:49)
[2021-10-26] MEDS: Apixaban 2.5 MG TAB PO SCH (09:49)
[2021-10-26] MEDS: Lisinopril 5 MG TAB PO SCH (12:22)
[2021-10-26] MEDS: Aspirin 81 mg Enteric Coated Tablet PO SCH (12:23)
[2021-10-26] MEDS: Cholecalciferol 1,000 UNITS (25 MCG) TAB PO SCH (12:23)
[2021-10-26] MEDS: Polyethylene Glycol 3350 17 GM Packet PO SCH (12:24)
== END 2021-10-26 15:17 | DRG 91 ==
LOC: ERS 16:18 → IMCU/EMU 18:34 → OBSVTOIN 19:09 → T4-A 10-23 18:27
PROVIDERS: ADMIT Internal Medicine; ATTEND Internal Medicine
PROC: 5A1D70Z Performance of Urinary Filtration, Intermittent, Less than 6 Hours Per Day (ICD-10-PCS; principal; 2021-10-22)
DX: G92.8 Other toxic encephalopathy (principal); N18.6 End stage renal disease; N39.0 Urinary tract infection, site not specified; E87.1 Hypo-osmolality and hyponatremia; N25.81 Secondary hyperparathyroidism of renal origin; T82.898A Other specified complication of vascular prosthetic devices, implants and grafts, initial encounter; Z20.822 Contact with and (suspected) exposure to COVID-19; R25.3 Fasciculation; I25.10 Atherosclerotic heart disease of native coronary artery without angina pectoris; E11.22 Type 2 diabetes mellitus with diabetic chronic kidney disease; J44.9 Chronic obstructive pulmonary disease, unspecified; E78.5 Hyperlipidemia, unspecified; I50.9 Heart failure, unspecified; G47.33 Obstructive sleep apnea (adult) (pediatric); G89.29 Other chronic pain; M54.50 Low back pain, unspecified; I48.0 Paroxysmal atrial fibrillation; I11.0 Hypertensive heart disease with heart failure; D63.1 Anemia in chronic kidney disease; E04.1 Nontoxic single thyroid nodule; T40.5X5A Adverse effect of cocaine, initial encounter; T42.6X5A Adverse effect of other antiepileptic and sedative-hypnotic drugs, initial encounter; Y83.2 Surgical operation with anastomosis, bypass or graft as the cause of abnormal reaction of the patient, or of later complication, without mention of misadventure at the time of the procedure; Z28.21 Immunization not carried out because of patient refusal; Z79.899 Other long term (current) drug therapy; Z79.4 Long term (current) use of insulin; Z79.01 Long term (current) use of anticoagulants; Z98.890 Other specified postprocedural states; Z88.5 Allergy status to narcotic agent; Z88.2 Allergy status to sulfonamides; I25.2 Old myocardial infarction; Z90.12 Acquired absence of left breast and nipple; Z86.16 Personal history of COVID-19; Z99.2 Dependence on renal dialysis; Z90.710 Acquired absence of both cervix and uterus; Z90.5 Acquired absence of kidney; Z95.1 Presence of aortocoronary bypass graft; Z87.891 Personal history of nicotine dependence
CPT/HCPCS: 36415; 36416; 36600; 51701; 70450; 71045; 76536; 80048; 80053; 80306; 81003; 81015; 82550; 82553; 82805; 83605; 83735; 83880; 83930; 83935; 84300; 84484; 85025; 87040; 87086; 90935; 93005; 96365; 96375; G0257; J0696; J1200; J1644; J1815; J3490; U0003; U0005

== ENCOUNTER 2021-11-25 09:40 | Inpatient (IN) | payer MEDICARE ==
[2021-11-25 10:23] LABS: #Basophils 0.1 thou/uL (0.0-0.2); #Eosinphils 0.1 thou/uL (0.0-0.7); #Lymphocytes 1.3 thou/uL (1.20-3.40); #Monocytes 0.6 thou/uL (0.11-0.59); #Neutrophils 5.7 thou/uL (1.40-6.50); %Basophils 0.8 % (0.0-1.0); %Eosinophils 0.8 % (0.0-10.0); %Monocytes 7.6 % (0.0-10.0); %Neutrophils 73.7 % (42.0-75.0); Hemoglobin 9.9 g/dL (12.0-16.0); Mean Corpuscular HGB CONC 31.5 g/dL (32.0-36.0); Mean Corpuscular Hemoglobin 33.6 pg (27.0-31.0); Mean Platelet Volume 9.5 fL (7.4-10.4); Platelet Count 146 thou/uL (130-400); RBC Distribution Width 13.8 % (11.5-14.5); Red Blood Cell (RBC) Count 2.95 mill/uL (4.20-5.40); White Blood Cell (WBC) Count 7.7 thou/uL (4.8-10.8)
[2021-11-25 10:37] LABS: INR-International Normal Ratio 1.5; Prothrombin Time 18.6 sec (12.0-14.7)
[2021-11-25 10:38] LABS: PTT 39.1 sec (22.9-36.1)
[2021-11-25 10:45] LABS: Bacteria/HPF 4+ HPF (None Seen); Bilirubin Negative (Negative); Blood, Urine 1+ (Negative); Glucose, Urine (Dipstick) 300 mg/dL (Negative); Ketone, Urine Negative (Negative); Leukocyte 500 Leu/uL (Negative); Nitrite Negative (Negative); Protein, Urine (Dipstick) 100 mg/dL (Neg-Trace); RBC/HPF 0-3 HPF (0-3); Specific Gravity, Urine 1.014 (1.002-1.036); Squamous Epithelial 0-3 HPF (0-3); Urobilinogen Normal mg/dL (Less than 2); WBC/HPF Greater than 50 HPF (0-3)
[2021-11-25 10:49] LABS: Anion Gap 17 mmol/L (10-20); BUN (Urea Nitrogen) 59 mg/dL (9.8-20.1); Calc. Creatinine Clearance 0 mL/min (70-130); Carbon Dioxide 24 mmol/L (23-31); Chloride 102 mmol/L (98-107); Glucose 240 mg/dL (83-110); Potassium 4.5 mmol/L (3.5-5.1); Sodium 138 mmol/L (136-145)
[2021-11-25 10:50] LABS: ALT (SGPT) 9 U/L (8-55); AST (SGOT) 10 U/L (5-34); Albumin 3.4 g/dL (3.4-4.8); Alkaline Phosphatase 110 U/L (40-110); Bilirubin, Total 0.5 mg/dL (0.2-1.2); Calcium 9.7 mg/dL (7.8-10.44); Globulin 3.3 g/dL (2.4-3.5); Protein, Total 6.7 g/dL (5.8-8.1)
[2021-11-25 11:04] LABS: CK (CPK) 32 U/L (29-168); Lipase 50 U/L (8-78)
[2021-11-25 11:06] LABS: Clarity Turbid (Clear); Renal Epithelial 0-3 HPF (None Seen)
[2021-11-25] MEDS ORDERED: Vancomycin 1 GM/200 ML BAG ONE (11:52)
[2021-11-25] MEDS ORDERED: cefTRIAXone\\ROCEPHIN 2 GM VIAL ONE (11:52)
[2021-11-25 11:54] LABS: CKMB 1.8 ng/mL (0-6.6)
[2021-11-25] MEDS ORDERED: Senokot S 8.6-50 MG TAB PO PRN (12:23)
[2021-11-25] MEDS ORDERED: Ondansetron ODT 4 MG TAB PO PRN (12:23)
[2021-11-25] MEDS ORDERED: Acetaminophen 325 MG TAB PO PRN (12:23)
[2021-11-25] MEDS ORDERED: HYDROcodone/Acetaminophen 5/325 mg Tablet PO PRN (12:23)
[2021-11-25] MEDS ORDERED: Aspirin Chewable 81 MG TAB ONE (12:24)
[2021-11-25] MEDS ORDERED: Dextrose 5% in Water 1,000 ML IV PRN (13:04)
[2021-11-25] MEDS ORDERED: Dextrose 50% Abboject 50 ML SYRINGE SLOW IVP PRN (13:04)
[2021-11-25] MEDS ORDERED: HumaLOG 300 UNITS/3 ML VIAL SC PRN (13:04)
[2021-11-25 14:50] LABS: CKMB 1.5 ng/mL (0-6.6)
[2021-11-25] MEDS: Dronedarone HCl 400 MG TAB PO SCH (18:02)
[2021-11-25 18:37] LABS: CKMB 1.9 ng/mL (0-6.6)
[2021-11-25] MEDS ORDERED: Apixaban 2.5 MG TAB PO SCH (21:00)
[2021-11-26 04:27] LABS: #Eosinphils 0.1 thou/uL (0.0-0.7); #Lymphocytes 1.4 thou/uL (1.20-3.40); #Monocytes 0.8 thou/uL (0.11-0.59); #Neutrophils 6.5 thou/uL (1.40-6.50); %Basophils 0.4 % (0.0-1.0); %Eosinophils 1.7 % (0.0-10.0); %Lymphocytes 15.7 % (21.0-51.0); %Monocytes 8.9 % (0.0-10.0); %Neutrophils 73.3 % (42.0-75.0); Hemoglobin 9.4 g/dL (12.0-16.0); Mean Corpuscular HGB CONC 31.5 g/dL (32.0-36.0); Mean Corpuscular Hemoglobin 33.5 pg (27.0-31.0); Mean Platelet Volume 9.5 fL (7.4-10.4); Platelet Count 144 thou/uL (130-400); RBC Distribution Width 13.6 % (11.5-14.5); Red Blood Cell (RBC) Count 2.81 mill/uL (4.20-5.40); White Blood Cell (WBC) Count 8.9 thou/uL (4.8-10.8)
[2021-11-26 04:51] LABS: ALT (SGPT) 10 U/L (8-55); AST (SGOT) 14 U/L (5-34); Alkaline Phosphatase 88 U/L (40-110); Anion Gap 15 mmol/L (10-20); BUN (Urea Nitrogen) 29 mg/dL (9.8-20.1); Bilirubin, Total 0.4 mg/dL (0.2-1.2); Calc. Creatinine Clearance 25 mL/min (70-130); Calcium 9.1 mg/dL (7.8-10.44); Carbon Dioxide 26 mmol/L (23-31); Chloride 101 mmol/L (98-107); Globulin 3.3 g/dL (2.4-3.5); Glucose 145 mg/dL (83-110); Potassium 4.7 mmol/L (3.5-5.1); Protein, Total 6.3 g/dL (5.8-8.1); Sodium 137 mmol/L (136-145)
[2021-11-26] MEDS ORDERED: Non-Formulary Item 1 EACH (Insulin Detemir [Levemir] 100 UNIT/ML Vial) SC SCH (09:00)
[2021-11-26] MEDS ORDERED: Non-Formulary Item 1 EACH (Calcium Carbonate [Calcium] 500 MG Tab.Chew) PO SCH (09:00)
[2021-11-26] MEDS ORDERED: Non-Formulary Item 1 EACH (Cholecalciferol (Vitamin D3) [Vitamin D3] 50 MCG Capsule) PO SCH (09:00)
[2021-11-26] MEDS ORDERED: Non-Formulary Item 1 EACH (Fluticasone/Vilanterol [Breo Ellipta] 100 MCG/25 MCG Blst.W.De IH SCH (09:00)
[2021-11-26] MEDS: Dronedarone HCl 400 MG TAB PO SCH ×2 (09:06→17:23)
[2021-11-26] MEDS: Ezetimibe 10 MG TAB PO SCH (09:18)
[2021-11-26] MEDS: Cholecalciferol 1,000 UNITS (25 MCG) TAB PO SCH (09:18)
[2021-11-26] MEDS: Calcium Carbonate 500 MG ChewTAB PO SCH ×3 (09:18→22:05)
[2021-11-26] MEDS: Insulin Glargine 30 UNITS/0.3 ML VIAL SC SCH ×2 (09:19→21:13)
[2021-11-26] MEDS ORDERED: Lidocaine 1% PF 5 ML VIAL ONE (09:42)
[2021-11-26] MEDS ORDERED: Sodium Bicarbonate 2.5 MEQ/5 ML VIAL ONE (09:42)
[2021-11-26] MEDS: cefTRIAXone\\ROCEPHIN 1 GM in Sodium Chloride 0.9% 100 ML IVPB SCH (12:43)
[2021-11-26] MEDS: Ondansetron PF 4 MG/2 ML Vial IVP PRN (12:45)
[2021-11-26] MEDS: Sevelamer Carbonate 800 MG TAB PO SCH ×2 (12:45→17:23)
[2021-11-26] MEDS: Mometasone 100 MCG/Formoterol 5 MCG 120 PUFF INHALER INH SCH (18:42)
[2021-11-26] MEDS ORDERED: Non-Formulary Item 1 EACH (Atorvastatin Calcium [Lipitor] 80 MG Tablet) PO SCH (21:00)
[2021-11-26] MEDS: Atorvastatin Calcium 40 MG TAB PO SCH (21:13)
[2021-11-27 05:03] LABS: Anion Gap 15 mmol/L (10-20); BUN (Urea Nitrogen) 39 mg/dL (9.8-20.1); Calc. Creatinine Clearance 13 mL/min (70-130); Calcium 9.7 mg/dL (7.8-10.44); Carbon Dioxide 31 mmol/L (23-31); Chloride 99 mmol/L (98-107); Glucose 154 mg/dL (83-110); Potassium 4.6 mmol/L (3.5-5.1); Sodium 140 mmol/L (136-145)
[2021-11-27] MEDS: Mometasone 100 MCG/Formoterol 5 MCG 120 PUFF INHALER INH SCH ×2 (06:57→19:57)
[2021-11-27] MEDS ORDERED: Epoetin (ESRD) 20,000 UNITS/ML SC SCH (08:00)
[2021-11-27] MEDS: Insulin Glargine 30 UNITS/0.3 ML VIAL SC SCH ×2 (09:09→21:01)
[2021-11-27] MEDS: Apixaban 2.5 MG TAB PO SCH ×2 (09:38→21:04)
[2021-11-27] MEDS: Dronedarone HCl 400 MG TAB PO SCH ×2 (09:41→19:16)
[2021-11-27] MEDS: Aspirin 81 mg Enteric Coated Tablet PO SCH (09:41)
[2021-11-27] MEDS: Sevelamer Carbonate 800 MG TAB PO SCH ×3 (10:11→19:05)
[2021-11-27] MEDS: Calcium Carbonate 500 MG ChewTAB PO SCH ×3 (10:13→21:02)
[2021-11-27] MEDS: Cholecalciferol 1,000 UNITS (25 MCG) TAB PO SCH (10:13)
[2021-11-27] MEDS: Ezetimibe 10 MG TAB PO SCH (10:13)
[2021-11-27] MEDS: cefTRIAXone\\ROCEPHIN 1 GM in Sodium Chloride 0.9% 100 ML IVPB SCH (19:16)
[2021-11-27] MEDS: Epoetin (ESRD) 10,000 UNITS/ML VIAL SC SCH (21:03)
[2021-11-27] MEDS: Atorvastatin Calcium 40 MG TAB PO SCH (21:04)
[2021-11-28] MEDS: Ondansetron PF 4 MG/2 ML Vial IVP PRN ×3 (00:50→22:25)
[2021-11-28] MEDS: Mometasone 100 MCG/Formoterol 5 MCG 120 PUFF INHALER INH SCH ×2 (07:46→18:57)
[2021-11-28] MEDS: Dronedarone HCl 400 MG TAB PO SCH ×2 (09:23→17:28)
[2021-11-28] MEDS: Ezetimibe 10 MG TAB PO SCH (09:24)
[2021-11-28] MEDS: Sevelamer Carbonate 800 MG TAB PO SCH ×3 (09:24→17:28)
[2021-11-28] MEDS: Cholecalciferol 1,000 UNITS (25 MCG) TAB PO SCH (09:24)
[2021-11-28] MEDS: Calcium Carbonate 500 MG ChewTAB PO SCH ×3 (09:24→21:08)
[2021-11-28] MEDS: Insulin Glargine 30 UNITS/0.3 ML VIAL SC SCH ×2 (09:25→21:09)
[2021-11-28] MEDS: Apixaban 2.5 MG TAB PO SCH ×2 (09:25→21:08)
[2021-11-28] MEDS: Aspirin 81 mg Enteric Coated Tablet PO SCH (09:25)
[2021-11-28] MEDS: cefTRIAXone\\ROCEPHIN 1 GM in Sodium Chloride 0.9% 100 ML IVPB SCH (12:45)
[2021-11-28] MEDS: HumaLOG 300 UNITS/3 ML VIAL SC PRN (12:45)
[2021-11-28] MEDS ORDERED: Mineral Oil ENEMA PR SCH (14:00)
[2021-11-28] MEDS ORDERED: Bisacodyl 10 MG SUPP PR SCH (14:00)
[2021-11-28] MEDS: Atorvastatin Calcium 40 MG TAB PO SCH (21:08)
[2021-11-29 04:45] LABS: #Eosinphils 0.1 thou/uL (0.0-0.7); #Lymphocytes 1.7 thou/uL (1.20-3.40); #Monocytes 0.8 thou/uL (0.11-0.59); #Neutrophils 4.6 thou/uL (1.40-6.50); %Basophils 0.7 % (0.0-1.0); %Monocytes 11.1 % (0.0-10.0); %Neutrophils 63.3 % (42.0-75.0); Hemoglobin 9.4 g/dL (12.0-16.0); Mean Corpuscular HGB CONC 32.1 g/dL (32.0-36.0); Mean Platelet Volume 9.8 fL (7.4-10.4); Platelet Count 148 thou/uL (130-400); RBC Distribution Width 13.6 % (11.5-14.5); Red Blood Cell (RBC) Count 2.78 mill/uL (4.20-5.40); White Blood Cell (WBC) Count 7.3 thou/uL (4.8-10.8)
[2021-11-29 05:05] LABS: Anion Gap 14 mmol/L (10-20); BUN (Urea Nitrogen) 27 mg/dL (9.8-20.1); Calc. Creatinine Clearance 14 mL/min (70-130); Calcium 9.4 mg/dL (7.8-10.44); Carbon Dioxide 32 mmol/L (23-31); Chloride 98 mmol/L (98-107); Glucose 129 mg/dL (83-110); Potassium 4.1 mmol/L (3.5-5.1); Sodium 140 mmol/L (136-145)
[2021-11-29] MEDS: Ondansetron PF 4 MG/2 ML Vial IVP PRN ×2 (06:23→21:30)
[2021-11-29] MEDS: Sevelamer Carbonate 800 MG TAB PO SCH ×3 (08:18→17:54)
[2021-11-29] MEDS ORDERED: Milk Of Magnesia 30 ML UDCUP PO SCH (08:30)
[2021-11-29] MEDS: Mometasone 100 MCG/Formoterol 5 MCG 120 PUFF INHALER INH SCH ×2 (11:29→19:12)
[2021-11-29] MEDS ORDERED: Mineral Oil ENEMA PR SCH (12:30)
[2021-11-29] MEDS ORDERED: PROPOFOL 200 MG/20 ML VIAL ONE (12:54)
[2021-11-29] MEDS: Apixaban 2.5 MG TAB PO SCH (14:27)
[2021-11-29] MEDS: Dronedarone HCl 400 MG TAB PO SCH ×2 (14:27→17:53)
[2021-11-29] MEDS: Ezetimibe 10 MG TAB PO SCH (14:27)
[2021-11-29] MEDS: Calcium Carbonate 500 MG ChewTAB PO SCH ×2 (14:27→14:48)
[2021-11-29] MEDS: Aspirin 81 mg Enteric Coated Tablet PO SCH (14:27)
[2021-11-29] MEDS: Cholecalciferol 1,000 UNITS (25 MCG) TAB PO SCH (14:27)
[2021-11-29] MEDS: cefTRIAXone\\ROCEPHIN 1 GM in Sodium Chloride 0.9% 100 ML IVPB SCH (14:37)
[2021-11-29] MEDS: Insulin Glargine 30 UNITS/0.3 ML VIAL SC SCH ×2 (14:47→21:58)
[2021-11-29] MEDS: HumaLOG 300 UNITS/3 ML VIAL SC PRN (17:54)
[2021-11-29] MEDS: Atorvastatin Calcium 40 MG TAB PO SCH (23:48)
[2021-11-30] MEDS: Calcium Carbonate 500 MG ChewTAB PO SCH ×4 (00:14→20:40)
[2021-11-30] MEDS ORDERED: Mineral Oil ENEMA PR SCH (00:15)
[2021-11-30] MEDS: Apixaban 2.5 MG TAB PO SCH ×3 (00:16→20:47)
[2021-11-30 04:16] LABS: #Basophils 0.1 thou/uL (0.0-0.2); #Eosinphils 0.1 thou/uL (0.0-0.7); #Lymphocytes 1.9 thou/uL (1.20-3.40); #Monocytes 0.7 thou/uL (0.11-0.59); %Basophils 0.8 % (0.0-1.0); %Eosinophils 0.9 % (0.0-10.0); %Monocytes 10.4 % (0.0-10.0); %Neutrophils 59.9 % (42.0-75.0); Hemoglobin 9.7 g/dL (12.0-16.0); Mean Corpuscular Hemoglobin 33.8 pg (27.0-31.0); Mean Platelet Volume 9.5 fL (7.4-10.4); Platelet Count 155 thou/uL (130-400); RBC Distribution Width 13.6 % (11.5-14.5); Red Blood Cell (RBC) Count 2.86 mill/uL (4.20-5.40); White Blood Cell (WBC) Count 6.7 thou/uL (4.8-10.8)
[2021-11-30 04:39] LABS: Anion Gap 14 mmol/L (10-20); BUN (Urea Nitrogen) 19 mg/dL (9.8-20.1); Calc. Creatinine Clearance 17 mL/min (70-130); Calcium 9.4 mg/dL (7.8-10.44); Carbon Dioxide 30 mmol/L (23-31); Chloride 100 mmol/L (98-107); Glucose 160 mg/dL (83-110); Potassium 3.7 mmol/L (3.5-5.1); Sodium 140 mmol/L (136-145)
[2021-11-30] MEDS: Ondansetron PF 4 MG/2 ML Vial IVP PRN (04:45)
[2021-11-30] MEDS: Bisacodyl 5 MG TAB PO PRN (04:57)
[2021-11-30] MEDS: Mometasone 100 MCG/Formoterol 5 MCG 120 PUFF INHALER INH SCH ×2 (07:09→17:02)
[2021-11-30] MEDS: Sevelamer Carbonate 800 MG TAB PO SCH ×3 (08:24→16:16)
[2021-11-30] MEDS: Insulin Glargine 30 UNITS/0.3 ML VIAL SC SCH ×2 (09:06→21:00)
[2021-11-30] MEDS: Cholecalciferol 1,000 UNITS (25 MCG) TAB PO SCH (09:06)
[2021-11-30] MEDS: Dronedarone HCl 400 MG TAB PO SCH ×2 (09:06→16:16)
[2021-11-30] MEDS: Ezetimibe 10 MG TAB PO SCH (09:06)
[2021-11-30] MEDS: Aspirin 81 mg Enteric Coated Tablet PO SCH (09:06)
[2021-11-30] MEDS: cefTRIAXone\\ROCEPHIN 1 GM in Sodium Chloride 0.9% 100 ML IVPB SCH (11:39)
[2021-11-30] MEDS ORDERED: Magnesium Citrate 300 ML BOT PO SCH (12:00)
[2021-11-30] MEDS: Atorvastatin Calcium 40 MG TAB PO SCH (20:47)
[2021-12-01 04:22] LABS: #Eosinphils 0.1 thou/uL (0.0-0.7); #Lymphocytes 2.3 thou/uL (1.20-3.40); #Monocytes 0.7 thou/uL (0.11-0.59); #Neutrophils 3.7 thou/uL (1.40-6.50); %Basophils 0.3 % (0.0-1.0); %Eosinophils 1.1 % (0.0-10.0); %Lymphocytes 33.7 % (21.0-51.0); %Monocytes 9.9 % (0.0-10.0); %Neutrophils 55.1 % (42.0-75.0); Hemoglobin 10.2 g/dL (12.0-16.0); Mean Corpuscular HGB CONC 31.6 g/dL (32.0-36.0); Mean Corpuscular Hemoglobin 33.6 pg (27.0-31.0); Mean Platelet Volume 9.3 fL (7.4-10.4); Platelet Count 172 thou/uL (130-400); RBC Distribution Width 13.8 % (11.5-14.5); Red Blood Cell (RBC) Count 3.03 mill/uL (4.20-5.40); White Blood Cell (WBC) Count 6.8 thou/uL (4.8-10.8)
[2021-12-01 04:42] LABS: Anion Gap 14 mmol/L (10-20); BUN (Urea Nitrogen) 27 mg/dL (9.8-20.1); Calc. Creatinine Clearance 13 mL/min (70-130); Calcium 9.7 mg/dL (7.8-10.44); Carbon Dioxide 31 mmol/L (23-31); Chloride 99 mmol/L (98-107); Glucose 96 mg/dL (83-110); Potassium 3.9 mmol/L (3.5-5.1); Sodium 140 mmol/L (136-145)
[2021-12-01] MEDS: Mometasone 100 MCG/Formoterol 5 MCG 120 PUFF INHALER INH SCH ×2 (06:37→18:50)
[2021-12-01] MEDS: Apixaban 2.5 MG TAB PO SCH ×2 (09:30→21:30)
[2021-12-01] MEDS: Dronedarone HCl 400 MG TAB PO SCH ×2 (09:30→17:09)
[2021-12-01] MEDS: Sevelamer Carbonate 800 MG TAB PO SCH ×3 (09:31→17:08)
[2021-12-01] MEDS: Insulin Glargine 30 UNITS/0.3 ML VIAL SC SCH ×2 (09:31→21:31)
[2021-12-01] MEDS: Calcium Carbonate 500 MG ChewTAB PO SCH ×3 (09:33→21:31)
[2021-12-01] MEDS: Bisacodyl 5 MG TAB PO PRN (12:06)
[2021-12-01] MEDS: cefTRIAXone\\ROCEPHIN 1 GM in Sodium Chloride 0.9% 100 ML IVPB SCH (12:07)
[2021-12-01] MEDS ORDERED: GoLYTELY 4,000 ml Bottle PO SCH (14:45)
[2021-12-01] MEDS: Cholecalciferol 1,000 UNITS (25 MCG) TAB PO SCH (15:36)
[2021-12-01] MEDS: Ezetimibe 10 MG TAB PO SCH (15:36)
[2021-12-01] MEDS: Aspirin 81 mg Enteric Coated Tablet PO SCH (15:36)
[2021-12-01] MEDS: Atorvastatin Calcium 40 MG TAB PO SCH (21:31)
[2021-12-02] MEDS: Ondansetron PF 4 MG/2 ML Vial IVP PRN (04:13)
[2021-12-02 04:47] LABS: #Lymphocytes 2.1 thou/uL (1.20-3.40); #Monocytes 0.8 thou/uL (0.11-0.59); #Neutrophils 5.7 thou/uL (1.40-6.50); %Basophils 0.3 % (0.0-1.0); %Eosinophils 0.6 % (0.0-10.0); %Lymphocytes 24.6 % (21.0-51.0); %Monocytes 8.8 % (0.0-10.0); %Neutrophils 65.8 % (42.0-75.0); Hemoglobin 10.4 g/dL (12.0-16.0); Mean Corpuscular HGB CONC 31.2 g/dL (32.0-36.0); Mean Corpuscular Hemoglobin 32.5 pg (27.0-31.0); Mean Platelet Volume 9.9 fL (7.4-10.4); Platelet Count 191 thou/uL (130-400); RBC Distribution Width 13.8 % (11.5-14.5); White Blood Cell (WBC) Count 8.6 thou/uL (4.8-10.8)
[2021-12-02 05:10] LABS: Anion Gap 17 mmol/L (10-20); BUN (Urea Nitrogen) 34 mg/dL (9.8-20.1); Calc. Creatinine Clearance 12 mL/min (70-130); Calcium 9.4 mg/dL (7.8-10.44); Carbon Dioxide 27 mmol/L (23-31); Chloride 97 mmol/L (98-107); Glucose 84 mg/dL (83-110); Potassium 4.4 mmol/L (3.5-5.1); Sodium 137 mmol/L (136-145)
[2021-12-02] MEDS: Mometasone 100 MCG/Formoterol 5 MCG 120 PUFF INHALER INH SCH ×2 (07:20→18:44)
[2021-12-02] MEDS: Sevelamer Carbonate 800 MG TAB PO SCH ×3 (08:46→18:05)
[2021-12-02] MEDS: Insulin Glargine 30 UNITS/0.3 ML VIAL SC SCH ×3 (08:46→20:28)
[2021-12-02] MEDS: Cholecalciferol 1,000 UNITS (25 MCG) TAB PO SCH (08:46)
[2021-12-02] MEDS: Ezetimibe 10 MG TAB PO SCH (08:46)
[2021-12-02] MEDS: Calcium Carbonate 500 MG ChewTAB PO SCH ×3 (08:46→20:26)
[2021-12-02] MEDS: Apixaban 2.5 MG TAB PO SCH ×2 (08:47→20:26)
[2021-12-02] MEDS: Dronedarone HCl 400 MG TAB PO SCH ×2 (08:47→18:05)
[2021-12-02] MEDS: Aspirin 81 mg Enteric Coated Tablet PO SCH (08:47)
[2021-12-02] MEDS: cefTRIAXone\\ROCEPHIN 1 GM in Sodium Chloride 0.9% 100 ML IVPB SCH (13:09)
[2021-12-02] MEDS ORDERED: GoLYTELY 4,000 ml Bottle PO SCH (15:15)
[2021-12-02] MEDS ORDERED: Mineral Oil ENEMA PR SCH (15:15)
[2021-12-02] MEDS: Atorvastatin Calcium 40 MG TAB PO SCH (20:26)
[2021-12-03 04:50] LABS: Anion Gap 17 mmol/L (10-20); BUN (Urea Nitrogen) 21 mg/dL (9.8-20.1); Calc. Creatinine Clearance 16 mL/min (70-130); Calcium 9.2 mg/dL (7.8-10.44); Carbon Dioxide 26 mmol/L (23-31); Chloride 97 mmol/L (98-107); Glucose 87 mg/dL (83-110); Potassium 4.5 mmol/L (3.5-5.1); Sodium 135 mmol/L (136-145)
[2021-12-03 06:53] LABS: #Basophils 0.1 thou/uL (0.0-0.2); #Lymphocytes 1.4 thou/uL (1.20-3.40); #Monocytes 0.5 thou/uL (0.11-0.59); #Neutrophils 4.4 thou/uL (1.40-6.50); %Basophils 0.9 % (0.0-1.0); %Eosinophils 0.5 % (0.0-10.0); %Lymphocytes 21.4 % (21.0-51.0); %Monocytes 7.3 % (0.0-10.0); %Neutrophils 69.9 % (42.0-75.0); Hemoglobin 10.6 g/dL (12.0-16.0); Mean Corpuscular HGB CONC 32.1 g/dL (32.0-36.0); Mean Corpuscular Hemoglobin 33.5 pg (27.0-31.0); Mean Platelet Volume 9.4 fL (7.4-10.4); Platelet Count 185 thou/uL (130-400); Red Blood Cell (RBC) Count 3.16 mill/uL (4.20-5.40); White Blood Cell (WBC) Count 6.3 thou/uL (4.8-10.8)
[2021-12-03] MEDS ORDERED: Bisacodyl 10 MG SUPP PR PRN (07:49)
[2021-12-03] MEDS: Mometasone 100 MCG/Formoterol 5 MCG 120 PUFF INHALER INH SCH ×2 (09:14→18:38)
[2021-12-03] MEDS: Apixaban 2.5 MG TAB PO SCH ×2 (10:01→21:23)
[2021-12-03] MEDS: Aspirin 81 mg Enteric Coated Tablet PO SCH (10:01)
[2021-12-03] MEDS: Insulin Glargine 30 UNITS/0.3 ML VIAL SC SCH ×2 (10:02→21:23)
[2021-12-03] MEDS: Sevelamer Carbonate 800 MG TAB PO SCH ×3 (10:02→16:52)
[2021-12-03] MEDS: Calcium Carbonate 500 MG ChewTAB PO SCH ×3 (10:03→21:23)
[2021-12-03] MEDS: Ezetimibe 10 MG TAB PO SCH (12:58)
[2021-12-03] MEDS: Cholecalciferol 1,000 UNITS (25 MCG) TAB PO SCH (12:58)
[2021-12-03] MEDS: cefTRIAXone\\ROCEPHIN 1 GM in Sodium Chloride 0.9% 100 ML IVPB SCH (12:58)
[2021-12-03] MEDS: Polyethylene Glycol 3350 17 GM Packet PO SCH ×2 (15:03→22:32)
[2021-12-03] MEDS: Atorvastatin Calcium 40 MG TAB PO SCH (21:23)
[2021-12-03] MEDS: Pantoprazole 40 MG VIAL IVP SCH (21:23)
[2021-12-04 04:12] LABS: #Eosinphils 0.1 thou/uL (0.0-0.7); #Lymphocytes 1.9 thou/uL (1.20-3.40); #Monocytes 0.8 thou/uL (0.11-0.59); #Neutrophils 3.5 thou/uL (1.40-6.50); %Basophils 0.4 % (0.0-1.0); %Eosinophils 1.4 % (0.0-10.0); %Lymphocytes 30.3 % (21.0-51.0); %Monocytes 12.2 % (0.0-10.0); %Neutrophils 55.7 % (42.0-75.0); Hemoglobin 10.4 g/dL (12.0-16.0); Mean Corpuscular HGB CONC 31.9 g/dL (32.0-36.0); Mean Corpuscular Hemoglobin 33.8 pg (27.0-31.0); Mean Platelet Volume 9.2 fL (7.4-10.4); Platelet Count 180 thou/uL (130-400); RBC Distribution Width 14.2 % (11.5-14.5); Red Blood Cell (RBC) Count 3.07 mill/uL (4.20-5.40); White Blood Cell (WBC) Count 6.3 thou/uL (4.8-10.8)
[2021-12-04 04:33] LABS: Anion Gap 16 mmol/L (10-20); BUN (Urea Nitrogen) 29 mg/dL (9.8-20.1); Calc. Creatinine Clearance 13 mL/min (70-130); Calcium 9.1 mg/dL (7.8-10.44); Carbon Dioxide 27 mmol/L (23-31); Chloride 96 mmol/L (98-107); Estimated GFR 8; Glucose 86 mg/dL (83-110); Potassium 3.7 mmol/L (3.5-5.1); Sodium 135 mmol/L (136-145)
[2021-12-04] MEDS: Polyethylene Glycol 3350 17 GM Packet PO SCH ×4 (07:22→22:43)
[2021-12-04] MEDS: Mometasone 100 MCG/Formoterol 5 MCG 120 PUFF INHALER INH SCH ×2 (07:49→19:38)
[2021-12-04] MEDS: Insulin Glargine 30 UNITS/0.3 ML VIAL SC SCH ×2 (10:35→22:42)
[2021-12-04] MEDS: Sevelamer Carbonate 800 MG TAB PO SCH ×3 (10:35→17:19)
[2021-12-04] MEDS: Calcium Carbonate 500 MG ChewTAB PO SCH ×3 (10:35→21:00)
[2021-12-04] MEDS: Pantoprazole 40 MG VIAL IVP SCH (12:06)
[2021-12-04] MEDS: Ezetimibe 10 MG TAB PO SCH (12:06)
[2021-12-04] MEDS: Epoetin (ESRD) 10,000 UNITS/ML VIAL SC SCH (12:06)
[2021-12-04] MEDS: Apixaban 2.5 MG TAB PO SCH ×2 (12:06→21:00)
[2021-12-04] MEDS: Aspirin 81 mg Enteric Coated Tablet PO SCH (12:06)
[2021-12-04] MEDS: cefTRIAXone\\ROCEPHIN 1 GM in Sodium Chloride 0.9% 100 ML IVPB SCH ×2 (12:07→18:41)
[2021-12-04] MEDS: Cholecalciferol 1,000 UNITS (25 MCG) TAB PO SCH (12:07)
[2021-12-04] MEDS: Atorvastatin Calcium 40 MG TAB PO SCH (21:00)
[2021-12-05] MEDS: Pantoprazole 40 MG VIAL IVP SCH ×3 (02:53→20:19)
[2021-12-05 04:16] LABS: #Basophils 0.1 thou/uL (0.0-0.2); #Eosinphils 0.1 thou/uL (0.0-0.7); #Monocytes 0.8 thou/uL (0.11-0.59); #Neutrophils 3.1 thou/uL (1.40-6.50); %Basophils 1.3 % (0.0-1.0); %Eosinophils 0.9 % (0.0-10.0); %Lymphocytes 32.8 % (21.0-51.0); %Monocytes 13.7 % (0.0-10.0); %Neutrophils 51.3 % (42.0-75.0); Hemoglobin 11.6 g/dL (12.0-16.0); Mean Corpuscular HGB CONC 31.2 g/dL (32.0-36.0); Mean Corpuscular Hemoglobin 33.2 pg (27.0-31.0); Mean Platelet Volume 9.5 fL (7.4-10.4); Platelet Count 169 thou/uL (130-400); RBC Distribution Width 14.6 % (11.5-14.5); Red Blood Cell (RBC) Count 3.48 mill/uL (4.20-5.40); White Blood Cell (WBC) Count 6.1 thou/uL (4.8-10.8)
[2021-12-05 04:37] LABS: Anion Gap 16 mmol/L (10-20); BUN (Urea Nitrogen) 14 mg/dL (9.8-20.1); Calc. Creatinine Clearance 17 mL/min (70-130); Calcium 9.1 mg/dL (7.8-10.44); Carbon Dioxide 29 mmol/L (23-31); Chloride 99 mmol/L (98-107); Estimated GFR 11; Glucose 140 mg/dL (83-110); Potassium 3.7 mmol/L (3.5-5.1); Sodium 140 mmol/L (136-145)
[2021-12-05] MEDS: Polyethylene Glycol 3350 17 GM Packet PO SCH ×3 (06:19→20:21)
[2021-12-05] MEDS: Mometasone 100 MCG/Formoterol 5 MCG 120 PUFF INHALER INH SCH ×2 (07:20→18:49)
[2021-12-05] MEDS ORDERED: fentaNYL Citrate/PF 100 MCG/2 ML SYRINGE ONE (09:01)
[2021-12-05] MEDS ORDERED: Ondansetron HCl/PF 4 MG/2 ML Vial IVP PRN (09:12)
[2021-12-05] MEDS ORDERED: Promethazine HCl 25 MG/ML VIAL IVPB PRN (09:12)
[2021-12-05] MEDS ORDERED: Promethazine HCl 25 MG/ML VIAL IM PRN (09:12)
[2021-12-05] MEDS: Sevelamer Carbonate 800 MG TAB PO SCH ×3 (10:06→18:13)
[2021-12-05] MEDS: Calcium Carbonate 500 MG ChewTAB PO SCH ×3 (10:07→20:18)
[2021-12-05] MEDS: Insulin Glargine 30 UNITS/0.3 ML VIAL SC SCH ×2 (10:07→20:20)
[2021-12-05] MEDS: Apixaban 2.5 MG TAB PO SCH ×2 (11:34→20:17)
[2021-12-05] MEDS: Aspirin 81 mg Enteric Coated Tablet PO SCH (11:34)
[2021-12-05] MEDS: Cholecalciferol 1,000 UNITS (25 MCG) TAB PO SCH (11:34)
[2021-12-05] MEDS: cefTRIAXone\\ROCEPHIN 1 GM in Sodium Chloride 0.9% 100 ML IVPB SCH (11:35)
[2021-12-05] MEDS: Ezetimibe 10 MG TAB PO SCH (11:42)
[2021-12-05] MEDS: Atorvastatin Calcium 40 MG TAB PO SCH (20:18)
[2021-12-06 04:16] LABS: #Basophils 0.1 thou/uL (0.0-0.2); #Eosinphils 0.1 thou/uL (0.0-0.7); #Lymphocytes 2.1 thou/uL (1.20-3.40); #Monocytes 0.7 thou/uL (0.11-0.59); #Neutrophils 3.4 thou/uL (1.40-6.50); %Basophils 0.8 % (0.0-1.0); %Eosinophils 1.2 % (0.0-10.0); %Monocytes 11.1 % (0.0-10.0); %Neutrophils 53.9 % (42.0-75.0); Hemoglobin 11.1 g/dL (12.0-16.0); Mean Corpuscular HGB CONC 32.1 g/dL (32.0-36.0); Mean Corpuscular Hemoglobin 34.1 pg (27.0-31.0); Mean Platelet Volume 9.7 fL (7.4-10.4); Platelet Count 172 thou/uL (130-400); RBC Distribution Width 14.6 % (11.5-14.5); Red Blood Cell (RBC) Count 3.24 mill/uL (4.20-5.40); White Blood Cell (WBC) Count 6.3 thou/uL (4.8-10.8)
[2021-12-06 04:40] LABS: Anion Gap 12 mmol/L (10-20); BUN (Urea Nitrogen) 16 mg/dL (9.8-20.1); Calc. Creatinine Clearance 13 mL/min (70-130); Calcium 9.6 mg/dL (7.8-10.44); Carbon Dioxide 31 mmol/L (23-31); Chloride 98 mmol/L (98-107); Estimated GFR 8; Glucose 134 mg/dL (83-110); Potassium 3.6 mmol/L (3.5-5.1); Sodium 137 mmol/L (136-145)
[2021-12-06] MEDS: Polyethylene Glycol 3350 17 GM Packet PO SCH ×4 (04:49→20:58)
[2021-12-06 07:22] VITALS: BMI 32.5
[2021-12-06] MEDS: Mometasone 100 MCG/Formoterol 5 MCG 120 PUFF INHALER INH SCH ×2 (07:56→19:40)
[2021-12-06] MEDS: Pantoprazole 40 MG VIAL IVP SCH ×2 (09:09→20:51)
[2021-12-06] MEDS: Calcium Carbonate 500 MG ChewTAB PO SCH ×3 (09:10→20:46)
[2021-12-06] MEDS: Sevelamer Carbonate 800 MG TAB PO SCH ×3 (09:11→16:32)
[2021-12-06] MEDS: Insulin Glargine 30 UNITS/0.3 ML VIAL SC SCH ×2 (09:11→20:59)
[2021-12-06] MEDS: Cholecalciferol 1,000 UNITS (25 MCG) TAB PO SCH (13:29)
[2021-12-06] MEDS: Aspirin 81 mg Enteric Coated Tablet PO SCH (13:29)
[2021-12-06] MEDS: Apixaban 2.5 MG TAB PO SCH ×2 (13:29→20:47)
[2021-12-06] MEDS: Ezetimibe 10 MG TAB PO SCH (13:30)
[2021-12-06] MEDS: cefTRIAXone\\ROCEPHIN 1 GM in Sodium Chloride 0.9% 100 ML IVPB SCH (13:30)
[2021-12-06] MEDS: Atorvastatin Calcium 40 MG TAB PO SCH (20:46)
[2021-12-07 04:17] LABS: #Eosinphils 0.1 thou/uL (0.0-0.7); #Lymphocytes 2.1 thou/uL (1.20-3.40); #Monocytes 0.8 thou/uL (0.11-0.59); %Basophils 0.5 % (0.0-1.0); %Eosinophils 0.8 % (0.0-10.0); %Lymphocytes 34.9 % (21.0-51.0); %Monocytes 13.1 % (0.0-10.0); %Neutrophils 50.7 % (42.0-75.0); Hemoglobin 11.1 g/dL (12.0-16.0); Mean Corpuscular Hemoglobin 33.6 pg (27.0-31.0); Mean Platelet Volume 10.1 fL (7.4-10.4); Platelet Count 153 thou/uL (130-400); RBC Distribution Width 14.8 % (11.5-14.5); Red Blood Cell (RBC) Count 3.31 mill/uL (4.20-5.40)
[2021-12-07 04:39] LABS: Anion Gap 15 mmol/L (10-20); BUN (Urea Nitrogen) 8 mg/dL (9.8-20.1); Calc. Creatinine Clearance 17 mL/min (70-130); Calcium 9.4 mg/dL (7.8-10.44); Carbon Dioxide 26 mmol/L (23-31); Chloride 99 mmol/L (98-107); Estimated GFR 11; Glucose 104 mg/dL (83-110); Potassium 3.8 mmol/L (3.5-5.1); Sodium 136 mmol/L (136-145)
[2021-12-07] MEDS: Polyethylene Glycol 3350 17 GM Packet PO SCH ×2 (06:22→12:13)
[2021-12-07] MEDS: Mometasone 100 MCG/Formoterol 5 MCG 120 PUFF INHALER INH SCH (07:22)
[2021-12-07] MEDS: Sevelamer Carbonate 800 MG TAB PO SCH ×2 (09:07→12:10)
[2021-12-07] MEDS: Insulin Glargine 30 UNITS/0.3 ML VIAL SC SCH (09:07)
[2021-12-07] MEDS: Pantoprazole 40 MG VIAL IVP SCH (09:08)
[2021-12-07] MEDS: Ezetimibe 10 MG TAB PO SCH (09:08)
[2021-12-07] MEDS: Cholecalciferol 1,000 UNITS (25 MCG) TAB PO SCH (09:08)
[2021-12-07] MEDS: Apixaban 2.5 MG TAB PO SCH (09:08)
[2021-12-07] MEDS: Calcium Carbonate 500 MG ChewTAB PO SCH (09:09)
[2021-12-07] MEDS: Aspirin 81 mg Enteric Coated Tablet PO SCH (09:10)
[2021-12-07] MEDS: HumaLOG 300 UNITS/3 ML VIAL SC PRN (12:09)
[2021-12-07 12:52] VITALS: BP 180/73; TEMP 97.9
== END 2021-12-07 14:00 | DRG 698 ==
LOC: SUATTDRO 09:40 → ERS 09:40 → 2NO 12:10
PROVIDERS: ADMIT Family Medicine; ATTEND Family Medicine
PROC: 0T2BX0Z Change Drainage Device in Bladder, External Approach (ICD-10-PCS; 2021-11-25)
PROC: 5A1D70Z Performance of Urinary Filtration, Intermittent, Less than 6 Hours Per Day (ICD-10-PCS; 2021-11-25)
PROC: 0G9G3ZX Drainage of Left Thyroid Gland Lobe, Percutaneous Approach, Diagnostic (ICD-10-PCS; principal; 2021-11-26)
PROC: B24BZZ4 Ultrasonography of Heart with Aorta, Transesophageal (ICD-10-PCS; 2021-11-29)
PROC: 5A2204Z Restoration of Cardiac Rhythm, Single (ICD-10-PCS; 2021-11-29)
PROC: 0DB78ZX Excision of Stomach, Pylorus, Via Natural or Artificial Opening Endoscopic, Diagnostic (ICD-10-PCS; 2021-12-05)
DX: T83.518A Infection and inflammatory reaction due to other urinary catheter, initial encounter (principal); I21.A1 Myocardial infarction type 2; N18.6 End stage renal disease; N39.0 Urinary tract infection, site not specified; I13.2 Hypertensive heart and chronic kidney disease with heart failure and with stage 5 chronic kidney disease, or end stage renal disease; I50.32 Chronic diastolic (congestive) heart failure; I48.19 Other persistent atrial fibrillation; Z20.822 Contact with and (suspected) exposure to COVID-19; I25.10 Atherosclerotic heart disease of native coronary artery without angina pectoris; I25.5 Ischemic cardiomyopathy; E11.22 Type 2 diabetes mellitus with diabetic chronic kidney disease; G47.33 Obstructive sleep apnea (adult) (pediatric); M54.50 Low back pain, unspecified; G89.29 Other chronic pain; B96.20 Unspecified Escherichia coli [E. coli] as the cause of diseases classified elsewhere; Y84.6 Urinary catheterization as the cause of abnormal reaction of the patient, or of later complication, without mention of misadventure at the time of the procedure; D63.1 Anemia in chronic kidney disease; I27.20 Pulmonary hypertension, unspecified; E66.01 Morbid (severe) obesity due to excess calories; J44.9 Chronic obstructive pulmonary disease, unspecified; R33.9 Retention of urine, unspecified; I08.3 Combined rheumatic disorders of mitral, aortic and tricuspid valves; K26.9 Duodenal ulcer, unspecified as acute or chronic, without hemorrhage or perforation; E07.89 Other specified disorders of thyroid; I49.3 Ventricular premature depolarization; K56.41 Fecal impaction; Z79.4 Long term (current) use of insulin; Z90.710 Acquired absence of both cervix and uterus; Z90.49 Acquired absence of other specified parts of digestive tract; Z79.01 Long term (current) use of anticoagulants; Z79.82 Long term (current) use of aspirin; Z99.2 Dependence on renal dialysis; Z88.2 Allergy status to sulfonamides; Z88.5 Allergy status to narcotic agent; Z79.899 Other long term (current) drug therapy; Z95.1 Presence of aortocoronary bypass graft; Z68.31 Body mass index [BMI] 31.0-31.9, adult
CPT/HCPCS: 36415; 36416; 60100; 71045; 74018; 74176; 76942; 80048; 80053; 81003; 81015; 82550; 82553; 83605; 83690; 83880; 84443; 84484; 85025; 85610; 85730; 87040; 87077; 87086; 87186; 88173; 88305; 88342; 90935; 92960; 93005; 93010; 93312; 94760; 96361; 96365; 96367; C9113; G0257; J0696; J1815; J2405; J2704; J3370; J3490; Q4081; U0003; U0005

== ENCOUNTER 2021-12-20 22:19 | Emergency (ER) | payer MEDICARE ==
[2021-12-20 22:51] LABS: Bacteria/HPF 4+ HPF (None Seen); Bilirubin Negative (Negative); Blood, Urine 2+ (Negative); Clarity Extra Turbid (Clear); Glucose, Urine (Dipstick) 200 mg/dL (Negative); Ketone, Urine Negative (Negative); Leukocyte 500 Leu/uL (Negative); Nitrite Negative (Negative); Protein, Urine (Dipstick) 300 mg/dL (Neg-Trace); Specific Gravity, Urine 1.018 (1.002-1.036); Squamous Epithelial 21-50 HPF (0-3); Urobilinogen Normal mg/dL (Less than 2); WBC/HPF Greater than 50 HPF (0-3); pH, Urine 6.5 (5.0-9.0)
== END 2021-12-21 02:15 | disposition home or self-care (01) ==
LOC: ERS 22:19
DX: T14.8XXA Other injury of unspecified body region, initial encounter (principal); M54.50 Low back pain, unspecified; M25.552 Pain in left hip; I25.10 Atherosclerotic heart disease of native coronary artery without angina pectoris; I25.2 Old myocardial infarction; E11.22 Type 2 diabetes mellitus with diabetic chronic kidney disease; N18.6 End stage renal disease; Z87.891 Personal history of nicotine dependence
CPT/HCPCS: 72131; 72192; 81003; 81015; 87077; 87086; 87186